=== PATIENT | male | born 1975 | race Caucasian/White ===

== ENCOUNTER 2023-05-13 13:04 | Outpatient (OUT) | payer OTHER, SELFPAY ==
--- NOTE | 2023-05-13 13:18 | PM.CN ---
Consult Note: HPI Data of Consult Patient: known to practice within the last 3 years Requesting Physician: Anaid Phelps NP Primary Care Provider: GOLDEN RICHARDSON Consult Narrative Narrative: Lonnie Kenny a pleasant 47 year old male presents for evaluation of chronic neck pain post surgery. Today rating pain 8/10 cc:: CC: Anaid Phelps NP Review of Systems ROS Status of ROS 10 or more systems reviewed and unremarkable except as noted in history and below Musculoskeletal Reports: neck pain Exam Constitutional Documenting provider has reviewed patient's vital signs: yes Common normals: no apparent distress, oriented x3, healthy appearing, alert and well nourished General appearance: cooperative HENMT Common normals: normocephalic, hearing grossly normal bilaterally and moist oral mucous membranes Head and scalp: normocephalic Eye Common normals: PERRL Pupil: PERRL Neck & C-Spine Common normals: full ROM Cervical spine: cervical ROM abnormal, pain with cervical ROM and paracervical muscle tenderness Chest Common normals: inspection of chest normal Respiratory Common normals: normal respiratory effort, no retractions and no use of accessory muscles Extremity Common normals: normal to inspection and full ROM Neuro Common normals: oriented x3, CN's II-XII intact bilaterally, moves all extremities, no focal motor deficits, no sensory deficits noted and deep tendon reflexes 2+ bilaterally Sensorium/orientation: alert Motor exam: strength 5/5 throughout and no movement abnormalities noted Psych Common normals: mental status grossly normal, thought process normal, cooperative, affect normal, speech normal and activity/motor behavior normal Speech: normal speech Thought process: normal thought process Results Additional Findings Additional findings: I have checked an [place] report on this patient today and there are no aberrancies noted in the prescribing history.?? A drug screen was completed and reviewed within the last year, and if there has not been a drug screen completed we ordered one today to monitor higher risk, state monitored pain medication use. As part of providing excellent, safe, comprehensive care, the following was completed at our patient's visit: 1. A medication reconciliation and review to ensure accurate knowledge of current/active medications, including asking our patients to inform us about any [id number] medications or herbal remedies/nutritional supplements/alternative remedies. 2. A review to specifically ensure our patients have had annual screening for: elevated body mass index (BMI), tobacco use, screening for depression, and screening for unhealthy alcohol use. When screening is concerning, patients are provided with education and the specific recommendation to discuss the concerning health issue and treatment options with their primary care provider. Assessment and Plan Assessment and Plan (1) Displacement of intervertebral disc at C4-C5 level: (2) Displacement of intervertebral disc at C5-C6 level: (3) Chronic prescription opiate use: Assessment and Plan: I feel these medications are improving the patient's quality of life and allow them to tolerate activities of daily living as well as participate in recreational activity.? The patient does not report intolerable side effects. The patient is NOT opioid naive and non-pharmacologic and non-opioid treatment has failed to significantly relieve the patient's pain and improve functionality. The patient has a diagnosis that is related to a somatic or visceral pain etiology. ? ?? I reviewed with the patient the potential risks and side effects with the use of? opioid medications including but not limited to respiratory depression,? sedation, and even . I verified the patient has access to naloxone should? these effects occur. I advised the patient to avoid the use of any other? sedation substances including alcohol, THC, and benzodiazepines while? taking opioid medications due to the risk of compounding side effects and? detrimental outcomes. I reviewed the PEDIATRIC CARDIOLOGIST, pain treatment agreement, urine? drug screen, and opioid start talking forms. The patient was advised to let? their family know they had Naloxone in case they would need to administer? the medication.? ?? Plan increase lyrica to 200mg BID continue other medications, tolerating well without side effects continue topical cream, TENS, and massage chair f/u 1 month to discuss medication changes
== END 2023-05-13 13:05 | disposition home or self-care (01) ==
LOC: PM 13:04
PROVIDERS: PCP Family Medicine; Visit Provider Nurse Practitioner
DX: M50.221 Other cervical disc displacement at C4-C5 level (principal); M50.222 Other cervical disc displacement at C5-C6 level; Z79.891 Long term (current) use of opiate analgesic
CPT/HCPCS: G0463

== ENCOUNTER 2023-06-11 13:25 | Outpatient (OUT) | payer OTHER, SELFPAY ==
--- NOTE | 2023-06-11 13:35 | PM.CN ---
Consult Note: HPI Data of Consult Patient: known to practice within the last 3 years Requesting Physician: Anaid Phelps NP Primary Care Provider: GOLDEN RICHARDSON Consult Narrative Narrative: Lonnie Kenny a pleasant 47 year old male presents for evaluation of chronic neck pain post cervical fusion. Today rating pain 8/10. Patient has been taking lyrica 200mg BID but it causes too much drowsiness. Patient would like to discuss medication management and additional procedures, has not benefitted from cervical ESIs despite radicular symptoms. cc:: CC: Anaid Phelps NP Review of Systems ROS Status of ROS 10 or more systems reviewed and unremarkable except as noted in history and below Musculoskeletal Reports: neck pain Meds Home Medications and Allergies Home Medications Medication Instructions Recorded Confirmed Type atorvastatin 10 mg tablet 10 mg PO DAILY 05/13/23 05/13/23 History baclofen 10 mg tablet 10 mg PO TID 05/13/23 05/13/23 History cetirizine 10 mg tablet 10 mg PO DAILY PRN allergy symptoms 05/13/23 05/13/23 History cholecalciferol (vitamin D3) 25 25 mcg PO DAILY 05/13/23 05/13/23 History mcg (1,000 unit) capsule (Vitamin D3) diclofenac sodium 75 mg 75 mg PO BID 05/13/23 05/13/23 History tablet,delayed release docusate sodium 100 mg capsule 100 mg PO DAILY 05/13/23 05/13/23 History hydroxyzine HCl 10 mg tablet 10 mg PO DAILY 05/13/23 05/13/23 History lisinopril 20 1 tab PO DAILY 05/13/23 05/13/23 History mg-hydrochlorothiazide 12.5 mg tablet omeprazole 20 mg capsule,delayed 20 mg PO DAILY 05/13/23 05/13/23 History release oxycodone-acetaminophen 5 mg-325 1 tab PO QID 05/13/23 05/13/23 History mg tablet (Percocet) pregabalin 200 mg capsule (Lyrica) 200 mg PO BID 05/13/23 05/13/23 History tamsulosin 0.4 mg capsule (Flomax) 0.4 mg PO DAILY 05/13/23 05/13/23 History venlafaxine 150 mg 150 mg PO DAILY 05/13/23 05/13/23 History capsule,extended release 24 hr (Effexor XR) oxycodone-acetaminophen 5 mg-325 1 tab PO QID PRN pain #120 tabs 05/26/23 Rx mg tablet (Percocet) oxycodone-acetaminophen 5 mg-325 1 tab PO QID PRN pain #120 tabs 05/27/23 Rx mg tablet (Percocet) Allergies Allergy/AdvReac Type Severity Reaction Status Date / Time corn Allergy Vomiting Verified 05/13/23 15:44 Penicillins Allergy Hives Verified 05/13/23 15:44 ibuprofen AdvReac Nausea Verified 05/13/23 15:44 prednisone AdvReac Palpitation Verified 05/13/23 15:44 s Exam Constitutional Documenting provider has reviewed patient's vital signs: yes Common normals: no apparent distress, oriented x3, healthy appearing, alert and well nourished General appearance: cooperative HENMT Common normals: normocephalic, hearing grossly normal bilaterally and moist oral mucous membranes Head and scalp: normocephalic Eye Common normals: PERRL Pupil: PERRL Neck & C-Spine Cervical spine: cervical ROM abnormal, pain with cervical ROM and paracervical muscle tenderness Other: bilateral radiculopathy Chest Common normals: inspection of chest normal Respiratory Common normals: normal respiratory effort, no retractions and no use of accessory muscles Extremity Common normals: normal to inspection and full ROM Neuro Common normals: oriented x3, CN's II-XII intact bilaterally, moves all extremities, no focal motor deficits, no sensory deficits noted and deep tendon reflexes 2+ bilaterally Sensorium/orientation: alert Motor exam: strength 5/5 throughout and no movement abnormalities noted Psych Common normals: mental status grossly normal, thought process normal, cooperative, affect normal, speech normal and activity/motor behavior normal Speech: normal speech Thought process: normal thought process Assessment and Plan Assessment and Plan (1) Displacement of intervertebral disc at C4-C5 level: (2) Displacement of intervertebral disc at C5-C6 level: (3) Chronic prescription opiate use: Assessment and Plan: I feel these medications are improving the patient's quality of life and allow them to tolerate activities of daily living as well as participate in recreational activity.? The patient does not report intolerable side effects. The patient is NOT opioid naive and non-pharmacologic and non-opioid treatment has failed to significantly relieve the patient's pain and improve functionality. The patient has a diagnosis that is related to a somatic or visceral pain etiology. ? ?? I reviewed with the patient the potential risks and side effects with the use of? opioid medications including but not limited to respiratory depression,? sedation, and even . I verified the patient has access to naloxone should? these effects occur. I advised the patient to avoid the use of any other? sedation substances including alcohol, THC, and benzodiazepines while? taking opioid medications due to the risk of compounding side effects and? detrimental outcomes. I reviewed the REGULATORY COMPLIANCE DIRECTOR, pain treatment agreement, urine? drug screen, and opioid start talking forms. The patient was advised to let? their family know they had Naloxone in case they would need to administer? the medication.? ?? Plan increase lyrica to 100mg AM, 200-300mg HS continue other medications, tolerating well without side effects continue topical cream, TENS, and massage chair f/u 3 months
== END 2023-06-11 13:26 | disposition home or self-care (01) ==
LOC: PM 13:25
PROVIDERS: PCP Family Medicine; Visit Provider Nurse Practitioner
DX: M50.221 Other cervical disc displacement at C4-C5 level (principal); M50.222 Other cervical disc displacement at C5-C6 level; Z79.899 Other long term (current) drug therapy
CPT/HCPCS: G0463

== ENCOUNTER 2023-09-10 13:22 | Outpatient (OUT) | payer OTHER, SELFPAY ==
--- OUTSIDE RECORDS SUMMARY | 2023-09-10 13:42 | XMS_ITS | CCD ---
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 Name Role Phone GOLDEN RAMIRES Primary Care Unavailable GOLDEN RAMIRES Referring Unavailable ALMA LEVINE Attending Unavailable ALMA LEVINE Admitting Unavailable MISC, DR KELLEY Admitting Unavailable ZieberEmigdio Consulting Unavailable FURLONG, DR GOLDEN Bryan Primary Care Unavailable MISC, DR KELLEY Attending Unavailable SCHAILIN, DR JEFFERS Consulting Unavailable PECK ., DR SHAN Ramachandran Attending Unavailable PECK ., DR SHAN Ramachandran Admitting Unavailable FREEMAN ., ISAIAH Consulting Unavailable DINA, DR MARISEL Heredia Primary Care Unavailable PECK ., DR SHAN Ramachandran Attending Unavailable FREEMAN ., ISAIAH Consulting Unavailable DINA, DR MARISEL Heredia Primary Care Unavailable PECK ., DR SHAN Ramachandran Admitting Unavailable FREEMAN ., ISAIAH Consulting Unavailable DINA, DR MARISEL Heredia Primary Care Unavailable PECK ., DR SHAN Ramachandran Attending Unavailable PECK ., DR SHAN Ramachandran Admitting Unavailable LAKSHMIPATHY ., NARHAILEY Attending Sherie vailable LAKSHMIPATHY ., NARHAILEY Admitting Sherie vailable FREEMAN ., ISAIAH Consulting Unavailable FURARNG, DR GOLDEN Bryan Primary Care Unavailable LAKSHMIPATHY ., JAIME Consulting Sherie vailable PECK ., DR SHAN Ramachandran Attending Unavailable FREEMAN ., ISAIAH Consulting Unavailable DINA, DR MARISEL Heredia Primary Care Unavailable PECK ., DR SHAN Ramachandran Admitting Unavailable LAKSHMIPATHY ., NARENDTYLER Attending Sherie vailable LAKSHMIPATHY ., JAIME Admitting Sherie vailable FURZARINA, DR GOLDEN Bryan Primary Care Unavailable LAKSHMIPATHY ., NARHAILEY Consulting Sherie vailable LAKSHMIPATHY ., NARHAILEY Attending Sherie vailable XIOMARASHMIPATHY ., KYLEATH Admitting Sherie vailable DERBA, DR GOLDEN Bryan Primary Care Unavailable LAKSHMIPATHY ., NARENDRANATH Attending Sherie vailable XIOMARASHMIPATHY ., NARENDRANATH Admitting Sherie vailable Emigdio Naylor Consulting Unavailable DEBRA, DR GOLDEN Bryan Primary Care Unavailable DEENA ., JAIME Consulting Sherie vailable MARIAM, DR JEFFERS Attending Unavailable DR AURY BECERRA Admitting Unavailable Emigdio Naylor Consulting Unavailable DR GOLDEN RAMIRES Primary Care Unavailable MARIAM, DR JEFFERS Consulting Unavailable Allergies Allergy Classification Reported Allergen(s) Allergy Type Date of Onset Reaction(s) Facility (1 source) corn extract; Translations: [CORN] Drug Allergy 09-20-2015 [facility] Repository (2 sources) Ibuprofen; Translations: [IBUPROFEN] Drug Allergy 08-19-2016 [facility] Repository (2 sources) Penicillins Drug allergy (disorder) 03-21-2015 [facility] Repository (2 sources) predniSONE; Translations: [PREDNISONE] Drug Allergy 09-20-2015 [facility] Repository (1 source) [place] Containing Products Drug allergy (disorder) [facility] Repository Problems Problem Classification Problem Date Documented Da te Episodic/Chronic Joint disorders and dislocations; trauma-related (4 sources) Other tear of medial meniscus, current injury, right knee, initial encounter; Translations: [OTH TEAR MED MENSC CUR RT KNEE INIT] Onset: 10-27-2022 Episodic Other screening for suspected conditions (not mental disorders or infectious disease) (4 sources) Encounter for screening, unspecified; Translations: [ENCOUNTER FOR SCREENING UNSPECIFIED] Onset: 12-16-2022 Episodic Spondylosis; intervertebral disc disorders; other back problems (10 sources) Other cervical disc displacement at C4-C5 level; Translations: [Other cervical disc displacement at C5-C6 level] Onset: 06-26-2022 Chronic Results Test Name Value Interpretation Reference Range Facility XR CSPINE MIN 4 VIEWSon 11-29 XR CSPINE MIN 4 VIEWS EXAMINATION: XR CSPINE MIN 4 VIEWS HISTORY: Prolapsed cervical intervertebral disc ; chronic bilateral neck pain COMPARISON: XR C-spine 10/27/2022 FINDINGS: BONES: Mechanical fusion of C4-C5-6 via anterior plate and screws and posterior acoustical screws and rods; no appreciable hardware fracture or loosening. No vertebral body fracture. 4 mm anterolisthesis of C6 on 7. DISC SPACES: Osseous fusion C4-C5, C5-C6. Mild narrowing C6-C7 and C7-T1. PARASPINOUS: Negative. No paraspinous abnormality is seen. OTHER: Negative. IMPRESSION: 1. Stable surgical changes without evidence of hardware failure or change in alignment. 2. Stable grade 1 anterolisthesis of C6 on C7. 3. Stable multilevel mild degenerative disc disease. Electronically authenticated by: EMIGDIO NAYLOR Date: 2022-12-16 15:11 Normal [facility] XR CSPINE OBL FLEX_EXTon XR CSPINE OBL FLEX_EXT EXAMINATION: XR CSPINE OBL FLEX_EXT HISTORY: Displacement of cervical intervertebral disc ; chronic neck pain COMPARISON: XR C-spine 02/06/2021 FINDINGS: BONES: Anterior posterior mechanical fusion C4-5-6 vertebral bodies; no appreciable hardware fracture or loosening. No bone fracture dislocation. Suspect posterior decompression of C4 and C5. Mild grade 1 anterior listhesis of C6 on C7 which remain stable between neutral, flexion, extension. DISC SPACES: Mild narrowing C3-4, C6-7. Osseous fusion of C4-5 and C5-6. PARASPINOUS: No paraspinous abnormality is seen. OTHER: Negative. IMPRESSION: 1. No acute bone abnormality. 2. Stable surgical changes without evidence of hardware failure or change in alignment. 3. Stable mild degenerative changes C3-4 and C6-7. Electronically authenticated by: EMIGDIO NAYLOR Date: 2022-10-27 15:03 Normal [facility] COMPREHENSIVE METABOLIC PANE Kulwinder 12-25-2021 Albumin [Mass/Vol] 4.9 g/dL Normal 3.6-5.1 [facility] Comment on above: Performed By: #### 1 6028, 0248, 90098, 3560 #### [facility] [address], [address] [place] [phone] Cost Accounting Analyst: Nicolas Araujo MD Albumin/Globulin [Mass ratio] 2.1 {ratio} Normal 1.0-2.5 [facility] Comment on above: Performed By: #### 1 7306, 7600, 81009, 5363 #### [facility] of [place] [address] Cost Accounting Analyst: Nicolas Araujo MD ALP [Catalytic activity/Vol] 49 U/L Normal 36-130 [facility] Comment on above: Performed By: #### 1 7306, 7600, 48059, 5363 #### [facility] [place] [address] Cost Accounting Analyst: Nicolas Araujo MD ALT [Catalytic activity/Vol] 14 U/L Normal 9-46 [facility] Comment on above: Performed By: #### 1 7306, 7600, 75713, 5363 #### [facility] [place] [address] Cost Accounting Analyst: Nicolas Araujo MD AST [Catalytic activity/Vol] 14 U/L Normal 10-40 [facility] Comment on above: Performed By: #### 1 7306, 7600, 82298, 5363 #### [facility] [place] [address] Cost Accounting Analyst: Nicolas Araujo MD Bilirubin [Mass/Vol] 0.7 mg/dL Normal 0.2-1.2 [facility] Comment on above: Performed By: #### 1 7306, 7600, 35456, 5363 #### [facility] [place] [address] Cost Accounting Analyst: Nicolas Araujo MD BUN/CREATININE RATIO NOT APPLICABLE Normal 6-22 [facility] Comment on above: Performed By: #### 1 7306, 7600, 71189, 5363 #### [facility] [place] [address] Cost Accounting Analyst: Nicolas Araujo MD Calcium [Mass/Vol] 9.9 mg/dL Normal 8.6-10.3 [facility] Comment on above: Performed By: #### 1 7306, 7600, 20116, 5363 #### [facility] of [address], [address] [place] [address] Cost Accounting Analyst: Nicolas Araujo MD Chloride [Moles/Vol] 101 mmol/L Normal 98-110 [facility] Comment on above: Performed By: #### 1 7306, 7600, 00965, 5363 #### [facility] [place] [address] Cost Accounting Analyst: Nicolas Araujo MD CO2 [Moles/Vol] 27 mmol/L Normal 20-32 [facility] Comment on above: Performed By: #### 1 7306, 7600, 44117, 5363 #### [facility] [place] [address] Cost Accounting Analyst: Nicolas Araujo MD Creatinine [Mass/Vol] 1.16 mg/dL Normal 0.60-1.35 [facility] Comment on above: Performed By: #### 1 7306, 7600, 13693, 5363 #### [facility] [place] [address] Cost Accounting Analyst: Nicolas Araujo MD eGFR NON-AFR. SPANISH 76 mL/min/1.73m2 Normal > OR = 60 [facility] Comment on above: Performed By: #### 1 7306, 7600, 30586, 5363 #### [facility] [place] [address] Cost Accounting Analyst: Nicolas Araujo MD GFR/1.73 sq M.predicted among blacks MDRD (S/P/Bld) [Vol rate/Area] 88 mL/min/{1.73_m2} Normal > OR = 60 [facility] Comment on above: Performed By: #### 1 7306, 7600, 67739, 5363 #### [facility] [place] [address] Cost Accounting Analyst: Nicolas Araujo MD Globulin (S) [Mass/Vol] 2.3 g/dL Normal 1.9-3.7 [facility] Comment on above: Performed By: #### 1 7306, 7600, 22408, 5363 #### [facility] [place] [address] Cost Accounting Analyst: Nicolas Araujo MD Glucose [Mass/Vol] 93 mg/dL Normal 65-99 [facility] Comment on above: Result Comment: Fasting reference interval Performed By: #### 1 7306, 7600, 56554, 5363 #### [facility] [place] [address] Cost Accounting Analyst: Nicolas Araujo MD Potassium [Moles/Vol] 4.3 mmol/L Normal 3.5-5.3 [facility] Comment on above: Performed By: #### 1 7306, 7600, 11691, 5363 #### [facility] [place] [address] Cost Accounting Analyst: Nicolas Araujo MD Protein [Mass/Vol] 7.2 g/dL Normal 6.1-8.1 [facility] Comment on above: Performed By: #### 1 7306, 7600, 92122, 5363 #### [facility] [place] [address] Cost Accounting Analyst: Nicolas Araujo MD Sodium [Moles/Vol] 137 mmol/L Normal 135-146 [facility] Comment on above: Performed By: #### 1 7306, 7600, 67352, 5363 #### [facility] [place] [address] Cost Accounting Analyst: Nicolas Araujo MD Urea nitrogen [Mass/Vol] 17 mg/dL Normal 7-25 [facility] Comment on above: Performed By: #### 1 7306, 7600, 76228, 5363 #### [facility] [place] [address] Cost Accounting Analyst: Nicolas Araujo MD LIPID PANEL, [facility] 11-30 Cholesterol [Mass/Vol] 200 mg/dL High <200 [facility] Comment on above: Order Comment: FASTI NG:YES FASTING: YES Performed By: #### 1 7306, 7600, 67645, 5363 #### [facility] [address], [address] [place] [address] Cost Accounting Analyst: Nicolas Araujo MD Cholesterol in HDL [Mass/Vol] 38 mg/dL Low > OR = 40 [facility] Comment on above: Order Comment: FASTI NG:YES FASTING: YES Performed By: #### 1 7306, 7600, 55194, 5363 #### [facility] [address], [address] [place] [address] Cost Accounting Analyst: Nicolas Araujo MD Cholesterol in LDL [Mass/Vol] 110 mg/dL High [facility] Comment on above: Order Comment: FASTI NG:YES FASTING: YES Result Comment: Refe rence range: <100 Desirable range <100 mg/dL for primary prevention; <70 mg/dL for patients with CHD or diabetic patients with > or = 2 CHD risk factors. LDL-C is now calculated using the Freddie calculation, which is a validated novel method providing better accuracy than the Friedewald equation in the estimation of LDL-C. Jamison PEMBERTON et al. AGUSTO. 2013;310(19): 9471-5620 (http://education.WeVorce/faq/PKS819) Performed By: #### 1 7306, 7600, 86038, 5363 #### [facility] [address], [address] [place] [address] Cost Accounting Analyst: Nicolas Araujo MD Cholesterol.total/C holesterol in HDL [Mass ratio] 5.3 {ratio} High <5.0 [facility] Comment on above: Order Comment: FASTI NG:YES FASTING: YES Performed By: #### 1 7306, 7600, 17833, 5363 #### [facility] [place] [address] Cost Accounting Analyst: Nicolas Araujo MD NON HDL CHOLESTEROL 162 mg/dL (calc) High <130 [facility] Comment on above: Order Comment: FASTI NG:YES FASTING: YES Result Comment: For patients with diabetes plus 1 major ASCVD risk factor, treating to a non-HDL-C goal of <100 mg/dL (LDL-C of <70 mg/dL) is considered a therapeutic option. Performed By: #### 1 7306, 7600, 29229, 5363 #### [facility] [address], [address] [place] [address] Cost Accounting Analyst: Nicolas Araujo MD Triglyceride [Mass/Vol] 364 mg/dL High <150 [facility] Comment on above: Order Comment: FASTI NG:YES FASTING: YES Result Comment: If a non-fasting specimen was collected, consider repeat triglyceride testing on a fasting specimen if clinically indicated. Eugenie et al. J. of Clin. Lipidol. 2015;9:129-169. Performed By: #### 1 7306, 7600, 34859, 5363 #### [facility] [address], [address] [place] [address] Cost Accounting Analyst: Nicolas Araujo MD PSA, TOTALon 12-25-2021 PSA, TOTAL 0.44 ng/mL Normal < OR = 4.00 [facility] Comment on above: Result Comment: The total PSA value from this assay system is standardized against the WHO standard. The test result will be approximately 20% lower when compared to the equimolar-standardized total PSA (Minerva Jose). Comparison of serial PSA results should be interpreted with this fact in mind. This test was performed using the Siemens chemiluminescent method. Values obtained from different assay methods cannot be used interchangeably. PSA levels, regardless of value, should not be interpreted as absolute evidence of the presence or absence of disease. Performed By: #### 1 7306, 7600, 98167, 5363 #### [facility] [address], [address] [place] [address] Cost Accounting Analyst: Nicolas Araujo MD VITAMIN D,25-OH,TOTAL,IAon 0 12-25-2021 VITAMIN D,25-OH,TOTAL,IA 61 ng/mL Normal 30-100 [facility] Comment on above: Result Comment: Rima min D Status 25-OH Vitamin D: Deficiency: <20 ng/mL Insufficiency: 20 - 29 ng/mL Optimal: > or = 30 ng/mL For 25-OH Vitamin D testing on patients on D2-supplementation and patients for whom quantitation of D2 and D3 fractions is required, the QuestAssureD(TM) 25-OH VIT D, (D2,D3), LC/MS/MS is recommended: order code 55543 (patients >2yrs). See Note 1 Note 1 For additional information, please refer to http://education.WeVorce/faq/LAT460 (This link is being provided for informational/ educational purposes only.) Performed By: #### 1 7306, 7600, 33185, 5363 #### [facility] [address], [address] [place] [address] Cost Accounting Analyst: Nicolas Araujo MD CT CERVICAL SPINE WITHOUT CO NTRASTon 10-30-2021 CT CERVICAL SPINE WITHOUT CONTRAST [facility] Department of Radiology [address] [place] [address] ======== Patient Name: AVEL FUNES : 1975 Sex: M Age: Race: White Pt. Location: Patient Status: D Ordered Date: 09/18/2021 3:30:00 PM Completed Date: 10/30/2021 03:13 PM Requesting Provider: ALMA LEVINE Attending Provider: ALMA LEVINE Report Copy To: GOLDEN RAMIRES Signs & Symptoms: M54.12 Radiculopathy, cervical region I10 History: [place] [phone] [facility] approval 09/19-10/03/21 Comments: Exam: CT CERVICAL SPINE WITHOUT CONTRAST ======== Clinical history:Arm pain, radiculopathy. Prior cervical fusion. CT cervical spine: Procedure: Axial images were obtained through the cervical spine. Coronal and sagittal reconstructions were performed. All CT scans at this facility use dose modulation, iterative reconstruction, and/or weight based dosing when appropriate to reduce radiation dose to as low as reasonably achievable. COMPARISON: 07/03/2020 The Findings: Stable intact fusion hardware C4-6. No acute fracture or dislocation. No osseous destruction. Degenerative changes at C3-4 with disc space narrowed, anterior spurring is progressed slightly. No bony encroachment of the central canal. No paravertebral fluid collections. Impression: Stable lower cervical fusion. Slight progression of moderate degenerative changes at C3-4. Electronically signed: Emigdio Waters. Transcribed by: [email or web address], User Resident: Electronically Signed by: EMIGDIO WATERS @ 11/02/2021 08:47 AM Normal [facility] CERVICAL SPINE 4 OR 5 VIEWSo n 09-11-2021 CERVICAL SPINE 4 OR 5 VIEWS [facility] Department of Radiology [address] [place] [id number] ======== Patient Name: AVEL FUNES : 1975 Sex: M Age: Race: White Pt. Location: Patient Status: D Ordered Date: 09/11/2021 1:15:00 PM Completed Date: 09/11/2021 01:11 PM Requesting Provider: ALMA LEVINE Attending Provider: Report Copy To: Signs & Symptoms: M54.2 Cervicalgia I10 History: Comments: evaluate Exam: CERVICAL SPINE 4 OR 5 VIEWS ======== CERVICAL SPINE 4 OR 5 VIEWS HISTORY: Prior surgery, neck pain. COMPARISON: 02/06/2021. IMPRESSION: Cervical spine visualized to the superior endplate of T1. Straightening of the normal cervical lordosis. 1. Unchanged postsurgical changes status post C4-C6 anterior and posterior spinal fusion. No hardware complication. There is mild anterolisthesis C6-C7 without significant change on flexion or extension. 2. Unchanged degenerative changes. 3. Dens limited secondary to overlying structures, however the C1 lateral masses are well-aligned with C2. Electronically signed: Avtar Barnes. Transcribed by: [email or web address], User Resident: Electronically Signed by: AVTAR BARNES @ 09/12/2021 02:45 PM Normal [facility] Comment on above: Order Comment: evalu ate CERVICAL SPINE 2 OR 3 [facility] 02-06-2021 CERVICAL SPINE 2 OR 3 [facility] Department of Radiology [address] [place] [id number] ======== Patient Name: AVEL FUNES : 1975 Sex: M Age: Race: White Pt. Location: Patient Status: D Ordered Date: 02/06/2021 2:00:00 PM Completed Date: 02/06/2021 02:21 PM Requesting Provider: ALMA LEVINE Attending Provider: ALMA LEVINE Report Copy To: GOLDEN RAMIRES Signs & Symptoms: M50.30 Other cervical disc degeneration, unsp cervical region I10 History: [place] Comments: ap, lat Exam: CERVICAL SPINE 2 OR 3 [facility] ======== EXAMINATION: CERVICAL SPINE 2 OR 3 VWS 02/06/2021 2:21 PM CLINICAL HISTORY: M50.30 Other cervical disc degeneration, unsp cervical region I10 TECHNOLOGIST COMMENTS: post op neck surgery check up times 6 months QUESTION FOR THE RADIOLOGIST: ap, lat TECHNIQUE: AP, Odontoid and Lateral views were obtained. COMPARISON: Comparison is made with prior cervical spine radiographs of 09/19/2020. FINDINGS: There is evidence of surgical spinal fusion from C4 to C6 with fixation plate and screws anteriorly and intervertebral vertebral graft material. There is also fixation of the posterior elements with the particular screws and plates at these levels. Postsurgical changes seen. No hardware complications are identified. There is a disc degenerative disease at the level of C3-C4 and C6-C7. Odontoid process is intact. There is no evidence of bony cervical rib. No significant prevertebral soft tissue abnormality is identified. IMPRESSION: 1. Status post surgical spinal fusion from C4 to C6 with postsurgical change. No hardware complications are seen. 2. Disc degenerative disease at C3-C4 and C6-C7. 3. No evidence of fracture, spondylolisthesis or acute bony pathology. Electronically signed: Koby Franks. Transcribed by: [email or web address], User Resident: Electronically Signed by: KOBY FRANKS @ 02/07/2021 09:02 AM Normal [facility] Comment on above: Order Comment: ap, l at CBC and Differentialon 04-06 Abs Baso 0.04 k/uL Normal <0.11 [facility] Abs Will 0.72 k/uL Normal <0.87 [facility] Abs Neut 4.71 k/uL Normal 1.45-7.50 [facility] Absolute nRBC <0.01 Normal <0.01 [facility] Basophils/100 WBC (Bld) 0.5 % Normal [facility] DTYPE Auto Diff Normal [facility] Eosinophils (Bld) [#/Vol] 0.11 10*3/uL Normal <0.46 [facility] Eosinophils/100 WBC (Bld) 1.3 % Normal [facility] Erythrocyte distribution width (RBC) [Ratio] 12.0 % Normal 11.5-15.0 [facility] Hematocrit (Bld) [Volume fraction] 43.4 % Normal 39.0-51.0 [facility] Hemoglobin (Bld) [Mass/Vol] 14.2 g/dL Normal 13.0-17.0 [facility] Lymphocytes (Bld) [#/Vol] 2.63 10*3/uL Normal 1.00-4.00 [facility] Lymphocytes/100 WBC (Bld) 32.0 % Normal [facility] MCH (RBC) [Entitic mass] 28.8 pG Normal 26.0-34.0 [facility] MCHC (RBC) [Mass/Vol] 32.7 g/dL Normal 30.5-36.0 [facility] MCV (RBC) [Entitic vol] 88.0 fL Normal 80.0-100.0 [facility] Monocytes/100 WBC (Bld) 8.8 % Normal [facility] Neutrophils/100 WBC (Bld) 57.4 % Normal [facility] NRBCs 0.0 /100 [facility] mean volume (Bld) [Entitic vol] 11.0 fL Normal 9.0-12.7 [facility] Platelets (Bld) [#/Vol] 280 10*3/uL Normal 150-400 [facility] RBC (Bld) [#/Vol] 4.93 10*6/uL Normal 4.20-6.00 [facility] WBC (Bld) [#/Vol] 8.21 10*3/uL Normal 3.70-11.[address] [facility] [address] ABD/PEL W IVCONon 019 CT ABD/PEL W IVCON * * *Final Report* * * DATE OF EXAM: Apr 06 2019 7:38PM [facility] 0530 - CT ABD/PEL W IVCON / PROCEDURE REASON: Abd pain, diverticulitis suspected * * * * Physician Interpretation * * * * EXAMINATION: CT ABDOMEN AND PELVIS WITH IV CONTRAST CLINICAL HISTORY: Abd pain, diverticulitis suspected abd pain TECHNIQUE: CT of the abdomen and pelvis was performed using standard technique, scanning from just above the dome of the diaphragm to the symphysis pubis. MQ: CTAP_3 Contrast: IV: 150 ml of Omnipaque 300 Oral: 900 ml of 50ML Omnipaque [address] Radiation dose: Integrated Dose-length product (DLP) for this visit = 977 mGy*cm. CT Dose Reduction Employed: Automated exposure control (AEC) COMPARISON: None. RESULT: Liver: No mass. Biliary: No bile duct dilation. Gallbladder is unremarkable. Spleen: No mass. No splenomegaly. Pancreas: No mass or duct dilation. Adrenals: No mass. Kidneys: No mass, calculus or hydronephrosis. GI tract: No dilatation or wall thickening Lymph nodes: No abdominal or pelvic lymphadenopathy. Mesentery/Peritoneum: No ascites or mass. Retroperitoneum: No mass. Vasculature: The celiac axis and SMA are patent. The portal vein and branches, splenic vein, SMV, and hepatic veins are patent. No abdominal aortic or iliac artery aneurysm. Pelvis: No mass, ascites or fluid collection. Bones/Soft Tissues: No significant finding. Lower thorax: Unremarkable. IMPRESSION: No evidence of an acute intra-abdominal or pelvic process. Film Tests Checker: [facility] Transcribe Date/Time: Apr 06 2019 7:43P Dictated by : ANALY YEPEZ MD This examination was interpreted and the report reviewed and electronically signed by: ANALY YEPEZ MD on Apr 06 2019 7:59PM EST [id number] Normal [facility] Comp Metabolic Panelon 04-06 Albumin [Mass/Vol] 4.8 g/dL Normal 3.9-4.9 [facility] ALP [Catalytic activity/Vol] 57 U/L Normal 38-113 [facility] ALT [Catalytic activity/Vol] Unable to assay. Specimen hemolyzed. Normal 10-54 [facility] Anion gap [Moles/Vol] 12 mmol/L Normal 9-18 [facility] AST [Catalytic activity/Vol] Unable to assay. Specimen hemolyzed. Normal 14-40 [facility] Bilirubin [Mass/Vol] 0.4 mg/dL Normal 0.2-1.3 [facility] Calcium [Mass/Vol] 9.8 mg/dL Normal 8.5-10.2 [facility] Chloride [Moles/Vol] 97 mmol/L Normal 97-105 [facility] CO2 [Moles/Vol] 28 mmol/L Normal 22-30 [facility] Creatinine [Mass/Vol] 1.03 mg/dL Normal 0.73-1.22 [facility] eGFR- Amer. >60 Normal [facility]ital GFR/1.73 sq M predicted among non-blacks MDRD (S/P/Bld) [Vol rate/Area] mL/min/{1.73_m2} Normal [facility] Comment on above: Result Comment: eGFR (Estimated GFR) Units of measure: mL/min/1.73 meters squared eGFR is derived from the reexpressed MDRD Study equation using the following parameters: serum creatinine, age, gender and race. The creatinine assay has been calibrated to be traceable to IDMS. An eGFR <60 mL/min/1.73m2 for >3 months is consistent with chronic kidney disease. Refer to KDOQI guidelines for clinical interpretation. In patients with unstable renal function, e.g. those with acute kidney injury, the eGFR may not accurately reflect actual GFR. Glucose [Mass/Vol] 95 mg/dL Normal 74-99 [facility] Comment on above: Result Comment: The [place] [employer] (ADA) provides guidance for cutoff values for fasting glucose and random glucose. The ADA defines fasting as no caloric intake for at least 8 hours. Fasting plasma glucose results between 100 to 125 mg/dL indicate increased risk for diabetes (prediabetes). Fasting plasma glucose results greater than or equal to 126 mg/dL meet the criteria for diagnosis of diabetes. In the absence of unequivocal hyperglycemia, results should be confirmed by repeat testing. In a patient with classic symptoms of hyperglycemia or hyperglycemic crisis, random plasma glucose results greater than or equal to 200 mg/dL meet the criteria for diagnosis of diabetes. Reference: Standards of Medical Care in Diabetes 2016, [place] Diabetes Association. Diabetes Care. 2016.39(Suppl 1). Potassium [Moles/Vol] 4.4 mmol/L Normal 3.7-5.1 [facility] Comment on above: Result Comment: Spec imen is slightly hemolyzed. Results are unaffected by this level of hemolysis. The performance characteristics of this test were determined by [facility]. It has not been cleared or approved by the FDA. [facility] is regulated under CLIA as qualified to perform high complexity testing. This test is used for clinical purposes. It should not be regarded as investigational or for research. Protein [Mass/Vol] 7.5 g/dL Normal 6.3-8.0 [facility] Sodium [Moles/Vol] 137 mmol/L Normal 136-144 [facility] Urea nitrogen [Mass/Vol] 9 mg/dL Normal 9-24 [facility] ED NOTEon 04-06-2019 ED NOTE HNO ID: [id number] Author: Patricia MagañaRn) KELVIN Astorga Service: ? Author Type: Registered Nurse Type: ED Notes Filed: 04/06/2019 9:03 PM Note Text: Discharge Note The patient was discharged home, the patients skin is warm and dry, and breathing is regular and unlabored. Discharge and follow up instructions given, Pt stable. The patient verbalized an understanding of discharge instructions provided, and verbalized an understanding of the medications prescribed. The patient was instructed to return to the ED if symptoms worsen. Pt has no further questions and/or concerns at this time. [facility] ED NOTE HNO ID: [id number] Author: Patricia MagañaRn) KELVIN Astorga Service: ? Author Type: Registered Nurse Type: ED Notes Filed: 04/06/2019 8:46 PM Note Text: The P.A is at bedside. [facility] ED NOTE HNO ID: [id number] Author: Belgica MagañaRn) KELVIN Dukes Service: Nursing Author Type: Registered Nurse Type: ED Notes Filed: 04/06/2019 6:23 PM Note Text: Pt presents to ER for evaluation of rectal bleeding x 3 days. Pt states that he was diagnosed with diverticulitis yesterday without a CT scan and was not started on any medications. [facility] ED PROV NOTEon 04-06-2019 ED PROV NOTE HNO ID: [id number] Author: Suyapa Vargas Service: ? Author Type: Physician Instructional Systems Design Consultant Type: ED Provider Notes Filed: 04/06/2019 9:08 PM Note Text: ED Provider Note Patient Name: Avel Guidryn SERVICE DATE: 04/06/19 History Patient presents with: Rectal Bleeding: x3 days Patient is a 43-year-old male presenting to the emergency Department with complaints of rectal bleeding that began 3 days ago. Patient reports 2 episodes of bright red blood on toilet paper when wiping and in the toilet bowl after bowel movement 3 days ago. He had another few episodes yesterday and 2 again today. He states yesterday began experiencing pain along his left lower quadrant. He was seen by his primary care physician yesterday who sent him home with stool culture. He states initially his stools were loose however today they have bulked up and were much more firm. He states he does take Percocet daily for chronic pain and does usually feel constipated. He had been straining prior to the bouts of rectal bleeding. He denies any fevers, chills, nausea, vomiting, change in appetite, chest pain, shortness of breath, urinary complaints, back pain, melena, hematemesis, any other complaints. He does not take any blood thinners. PAST MEDICAL HISTORY Diagnosis Date - Chronic diarrhea - Hypertension - Psychiatric disorder Axiety PAST SURGICAL HISTORY Procedure Laterality Date - ORTHOPEDICS SURGERY HX - TONSILLECTOMY HX - VASECTOMY HX No family history on file. Social History Tobacco Use - Smoking status: Never Smoker - Smokeless tobacco: Current User Types: Chew Substance and Sexual Activity - Alcohol use: Not on file - Drug use: Not Currently - Sexual activity: Not on file ALLERGIES Allergen Reactions - [place] Other: See Comments - Ibuprofen GI Upset - Penicillin Rash - Prednisone Swelling Review of Systems Constitutional: Negative. HENT: Negative. Respiratory: Negative. Cardiovascular: Negative. Gastrointestinal: Positive for abdominal pain and blood in stool. Genitourinary: Negative. Musculoskeletal: Negative. Skin: Negative. Neurological: Negative. Psychiatric/Behavioral : Negative. All other systems reviewed and are negative. Physical Exam BP 127/90 Pulse 89 Temp (Src) 98.4 (Oral) Resp 12 Ht 5' 8 (1.73m) Wt 188 lb (85.3kg) SpO2 100% BMI 28.59 kg/(m2). O2 Therapy: Room Air Physical Exam Constitutional: He is oriented to person, place, and time. He appears well-developed and well-nourished. No distress. HENT: Head: Normocephalic and atraumatic. Mouth/Throat: Oropharynx is clear and moist. Eyes: Conjunctivae are normal. Neck: Normal range of motion. Neck supple. Cardiovascular: Normal rate and regular rhythm. Pulmonary/Chest: Effort normal and breath sounds normal. No respiratory distress. Abdominal: Soft. There is left lower quadrant tenderness, no guarding rigidity or acute peritoneal signs Genitourinary: Genitourinary Comments: No CVA tenderness, on rectal exam, there is a small rectal fissure at the posterior appreciated no gross blood, hemoccult negative. Musculoskeletal: Normal range of motion. He exhibits no tenderness. Neurological: He is alert and oriented to person, place, and time. No cranial nerve deficit. Skin: Skin is warm. Capillary refill takes less than 2 seconds. No pallor. Psychiatric: He has a normal mood and affect. Diagnostic Testing ED Labs Ordered and Reviewed CBC + AUTO DIFF (AK,AV,EU,FV,HL,ALYSON,MM, SP) COMPREHENSIVE METABOLIC PANEL (AK,AV,EU,FV,HL,ALYSON,MM, SP) FECAL OCCULT BLOOD - ED(POC) Procedures ED Course / Clinical Impression Clinical Impressions as of Apr 06 2059 Left lower quadrant pain Anal fissure MDM / Disposition / Plan Patient is a 43-year-old male presenting to the ED with complaint of rectal bleeding and left lower quadrant abdominal pain. Symptoms began 3 days ago with 2 bouts of loose stool with bright red blood on toilet paper and into a bowl. Yesterday began expressing left lower quadrant abdominal pain. He arrives today with tenderness along the left lower quadrant, afebrile, nontoxic appearing. No guarding or acute peritoneal signs. CBC and CMP are normal. CT abdomen and pelvis shows no acute inter abdominal or pelvic process. He was given IV fluids Patient states his abdominal pain has improved since here in the ED. On rectal exam, there is notable rectal fissure. Given his left lower quadrant tenderness, concern for clinical presentation consistent with diverticulitis, will treat with Cipro and flagyl as he is allergic to penicillin and also has reactions to cephalosporins. He is aware that taking the Percocet chronically can cause constipation, straining and likely resulted in rectal fissure as seen on exam. He was also given prescription for witch soledad and Colace. He did provide a stool specimen to outside facility who his pcp is affiliated with and is awaiting stool culture results for this. Patient is to follow up with Dr. Ramires. Return if worse. Patient and at bedside are amenable to this and will be d/c'd to home in hemodynamically stable condition. The patient was DISCHARGED: Counseled patient regarding lab results AND radiology results AND need for follow-up. Discharged home with verbal and written instructions. They were instructed to return as needed for persistent or worsening symptoms or any new concerns. Condition at time of disposition: stable SIGNATURE: TRICIA Watters) Sam 04/06/19 2108 [facility] PROGRESSon 04-06-2019 PROGRESS HNO ID: [id number] Author: Eileen () Ladonna Service: Radiology Author Type: Risk Control Specialist Type: Progress Notes Filed: 04/06/2019 7:39 PM Note Text: Radiology Service Progress Note PATIENT NAME: Avel Funes DATE OF SERVICE: April 06, 2019 TIME: 7:39 PM PATIENT IDENTITY VERIFICATION COMPLETED USING TWO (2) METHODS: Patient confirmed name verbally, ID Band and Date of . PATIENT GENDER DATA: Male PATIENT RELEVANT IMPLANT DATA REVIEWED: Yes RADIOLOGY DEPARTMENT: CT; Exam(s) Completed: Abdomen/Pelvis PERIPHERAL IV DATA: Inpatient: see LDA documentation SIGNED BY: RT Laura April 06, 2019 7:39 PM [facility] Encounters Encounter Date Encounter Type Care Provider Facility Start: 01-13-2023 End: 01-14-2023 ambulatory NARENDRANATH LAKSHMIPATHY . Facility: Start: 12-16-2022 End: 12-17-2022 ambulatory NARENDRANATH LAKSHMIPATHY . Facility: Start: 12-04-2022 End: 12-05-2022 ambulatory NARENDRANATH LAKSHMIPATHY . Facility:[facility] Start: 10-27-2022 End: 10-28-[address] DOCTOR SOSA Facility:[facility] Start: 09-10-2022 End: 09-11-2022 ambulatory ISAIAH FREEMAN . Facility:[facility] Start: 09-04-[address] SHAN PECK . Faci lity:[facility] Start: 06-26-2022 End: 06-27-[address] SHAN PECK . Facility:[facility] Start: 04-03-2022 End: 04-04-[address] SHAN PECK . Facility:[facility] Start: 10-30-2021 End: 10-31-2021 ambulatory GOLDEN RAMIRES Facility:[facility] Payers Date Payer Category Payer Unknown [id number] 2.16.8 [id number] 1975 Unknown [id number] 2.16.84 [id number] 1976 Unknown [id number] 2.16.84 [id number] 1976 Unknown [id number] 2.16.84 [id number] 1976 Unknown [id number] 2.16.84 [id number] 1976 Unknown [id number] 2.16.84 [id number] 1976 Unknown [id number] 2.16.84 [id number] 1976 Unknown [id number] 2.16.84 [id number] 1976 Unknown [id number] 2.16.84 [id number] 1976 Unknown [id number] 2.16.84 [id number] 1976 Unknown [id number] 2.16.84 [id number] 1959 Worker's Compensation [id number] Consultation note 12-04-2022 Note Date & Type Note Facility 12-04-2022 Note CONSULTATION CONSULTATION DATE: 12/04/2022 TO: Dr. Carl Espinoza CHIEF COMPLAINT: Includes severe neck pain, shoulder pain. HISTORY: He reports the pain as being 5-7/10, deep in character with a sharp component, increased with activities such as lifting maneuvers, pushing and pulling maneuvers and cervical extension. Denies any change in bowel and bladder habits or new sensorimotor changes in the lower extremities. EXAM: His examination is notable for the patient having significant pain with cervical facet loading maneuvers at C4-5 and C5-6 with a fair amount of myofascial spasm of the cervical paravertebral muscles. He had moderate pain with cervical axial loading maneuvers. He had no clinical evidence of radiculopathy or myelopathy involving his upper extremities. IMPRESSION: Our impression is patient with chronic pain secondary to a work related injury. Diagnosis code: M50.221 - Disc prolapse at C4-5 and M50.222 - Disc prolapse at C5-6 with associated myofascial spasm secondary to the same, with associated facet loading pain clinically. RECOMMENDATIONS: At this point, I recommend patient undergo cervical spine films. I have placed a skin marker over the most painful area. It appears to be at approximately the C4-5 level. We will have a better idea after carl his painful area, place a skin marker and obtain cervical spine films, PA and lateral views, to determine which level his most painful area is. It appears to be at the C4-5 level. I have asked him to trial baclofen 10 mg pills, 1-2 pills t.i.d. and to start physical therapy. We will obtain urine toxicology screen at today's visit. Will also obtain a pill count in the near future. We will have him return to the office for me to carl the area off prior to his cervical spine films, so we can place a skin marker to confirm the location at C4-5. As part of providing excellent, safe, comprehensive care, the following was completed at our patient's visit: 1. A medication reconciliation and review to ensure accurate knowledge of current/active medications, including asking our patients to inform us about any ezsh-[id number] medications or herbal remedies/nutritional supplements/alternative remedies. 2. A review to specifically ensure our patients have had annual screening for: elevated body mass index (BMI, see intake chart for exact total), tobacco use, screening for depression, and screening for unhealthy alcohol use. When screening is concerning, patients are provided with education and the specific recommendation to discuss the concerning health issue and treatment options with their primary care provider. [facility] Clinical Note 10-27-2022 Note Date & Type Note Facility 10-27-2022 Note PROCEDURE: XR KNEE R T 4V or > HISTORY: Tear of medial meniscus of knee ; chronic right knee pain COMPARISON: None. FINDINGS: BONES:Elevated patella. No fracture, dislocation, bone lesion. No significant joint space narrowing. SOFT TISSUES:No visible soft tissue swelling. EFFUSION:None visible. OTHER: Negative. IMPRESSION: 1. Patella juan. Otherwise unremarkable right knee. Electronically authenticated by: EMIGDIO NAYLOR Date: 2022-10-27 15:00 [facility] Consultation note 09-10-2022 Note Date & Type Note Facility 09-10-2022 Note CONSULTATION PROCEDURE DATE: 09/10/2022 WBC Code M50.221 and M50.222. PREOPERATIVE DIAGNOSIS: Cervical disc collapse C4-C5, C5-C6. POSTOPERATIVE DIAGNOSIS: Cervical disc collapse C4-C5, C5-C6. PROCEDURE: Cervical trigger point injections. Subsequent to obtaining informed consent, the patient was placed in the upright sitting, head neutral position. Alcohol prep was used to sterilize bilateral locations of his C-spine. A 25 gauge needle with 0.125% Marcaine and 40 mg of Kenalog was used and divided into two locations. Needle was placed to rest inside the trigger zones with negative heme. Medication was injected in a slow, fan-like pattern. Patient tolerated the procedure well. He will be followed up in the office in three months or sooner if needed. [facility] Consultation note 06-26-2022 Note Date & Type Note Facility 06-26-2022 Note CONSULTATION CONSULTATION DATE: 06/26/2022 This is a 46-year-old gentleman who is a [facility] case and returns to the clinic for a 3-month follow-up for his chronic neck pain. Today he rates his pain 7 out of 10, describes it as an ache and throbbing. It is located along his mid-neck and pain radiates to bilateral shoulders, right greater than left. He also complains of extreme neck tightness which decreases his range of motion. 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 Activities such as twisting, pulling, standing, walking, bending and physical activity aggravate his pain. Medications include diclofenac 75 mg b.i.d., Percocet 5/325 t.i.d., Lyrica 100 mg b.i.d. and vitamin regimen. He is noting some increased right upper arm weakness and noticed that he has dropped things more than usual. REVIEW OF SYSTEMS, PAST MEDICAL HISTORY, ALLERGIES AND IMAGES: Have been reviewed and noted in the chart. PHYSICAL EXAM: VITAL SIGNS: Blood pressure 115/76, heart rate is 95, temperature is 98.4. Height is 5.8 , weighs 92.8 kg. GENERAL APPEARANCE: Pleasant, appropriate, no acute distress. FOCUSED EXAM: NECK: Range of motion is guarded in lateral rotation and flexion/extension. Cervical splenius capitis and cervical trapezius muscles are taut with two trigger points identified bilaterally. Compression along these muscles reproduces the patient's pain symptomatology. MUSCULOSKELETAL: Motor bilateral upper arms is 4/5, right upper extremity slight muscle weakness to wrist extensor. NEUROLOGICAL: Gross and fine motor are intact bilaterally. +1 brachioradialis reflexes. The patient is cognitively intact. Diffuse neuropathy bilateral upper extremities including all fingers. [facility] codes for diagnosis M50.221, M50.222. PLAN: We will increase his Percocet for the winter months to 5/325 q.i.d. We will preauthorize for bilateral cervical trigger point injections to mitigate his cervical spams. Upon approval, the patient will be called to the office to receive those injections. The patient does agree with the plan of care. [facility] Consultation note 04-03-2022 Note Date & Type Note Facility 04-03-2022 Note CONSULTATION CONSULTATION DATE: 04/03/2022 HISTORY OF PRESENT ILLNESS: This is a 46-year-old male who is being seen at our pain clinic for chronic neck pain and is a [facility] case. Patient did sustain a neck injury in 2014 due to a lifting incident. He was last seen on 12/26/2021 which, at that time, we were attempting to preauthorize for cervical medial branch blocks and a subsequent rhizotomy. That was declined by [facility] regardless of the pathology and the clinical we presented. Today, the patient's pain is increased. He rates it 8/10, constant and sharp. He has radicular pain, bilateral upper extremities that extend to his finger tips on both hands. He does use heat at times, which decreases the pain. Any activity and lifting aggravates his pain. The patient has had a fusion with anterior and posterior hardware intact. Current medications include Percocet 5/325 t.i.d., Lyrica 100 mg b.i.d., Remeron, Effexor and Aleve. Patient does have decreased range of motion in lateral rotation. With increased activity, the pain is so great that the patient has to lie on the couch and be immobile. It is affecting his quality of life. Patient's REVIEW OF SYSTEMS / PAST MEDICAL HISTORY / ALLERGIES and IMAGES have been reviewed and they are noted on the chart. PHYSICAL EXAM: VITAL SIGNS: Blood pressure 105/72, heart rate is 100. Temperature is 97.7. He is 5'8 and weighs 92 kg. GENERAL APPEARANCE: Pleasant, appropriate, moderately uncomfortable sitting in the chair. FOCUSED EXAM - NECK: Range of motion is guarded and decreased in lateral rotation, right greater than left. Flexion and extension are guarded as well. Reproduction of the spinal axial pain to direct compression along the cervical facets of C4, C5 and C5, C6. Fullness palpated as well, indicative of facet arthropathy, cervical spondylosis. Pain is radicular and extends below the elbows bilaterally. MUSCULOSKELETAL: Motor weakness is noted to bilateral extremities, right greater than left. Motor is 3/5 to the right, 4/5 to the left. This is in pushing and pulling. Range of motion is intact. NEUROLOGICAL: Diffuse neuropathy to bilateral upper extremities. Blunted bilateral brachioradialis reflexes. IMPRESSION: [facility] codes M50.221, M50.222. PLAN: We will add diclofenac 75 mg b.i.d. to help control his inflammatory pain. Lyrica will be increased to 150 mg b.i.d. No changes in his Percocet dose at this time. Heat application was encouraged as well as adding magnesium and a multivitamin. At this time, we will attempt to medically manage him, pending any further [facility] approval to move forward with procedural interventions. Patient is in agreement with this plan. We will see him back in early May for follow up. [facility] Summary Purpose Family History No Family History Records FoundNo Family History Records FoundNo Family History Records FoundNo Family History Records Found Advance Directives No Advanced Directives Records FoundNo Advanced Directives Records FoundNo Advanced Directives Records FoundNo Advanced Directives Records Found Additional Source Comments (unrecognized sect ion and content) No Status Records FoundNo Status Records FoundNo Status Records FoundNo Status Records Found INFORMATION SOURCE (unrecogn ized section and content) DATE CREATED AUTHOR 04/06/2019 [facility] DATE CREATED AUTHOR AUTHOR'S ORGANIZ ATION 11/09/2021 [facility] DATE CREATED AUTHOR AUTHOR'S ORGANIZ ATION 12/27/2021 [facility] DATE CREATED AUTHOR AUTHOR'S ORGANIZ ATION 01/14/2023 [facility] FOR RECORDS PERTAINING TO PATIENTS WHO ARE OR HAVE BEEN ENROLLED IN A CHEMICAL DEPENDENCY/SUBSTANCEABUSE PROGRAM, SOME INFORMATION MAY BE OMITTED. This clinical summary was aggregated from multiple sources. Caution should be exercised in using it in the provision of clinical care. This summary normalizes information from multiple sources, and as a consequence, information in this document may materially change the coding, format and clinical context of patient data. In addition, data may be omitted in some cases. CLINICAL DECISIONS SHOULD BE BASED ON THE PRIMARY CLINICAL RECORDS. [facility] provides no warranty or guarantee of the accuracy or completeness of information in this document.
--- NOTE | 2023-09-10 13:47 | P.CN_ITS ---
Consult Note: HPI Data of Consult Patient: known to practice within the last 3 years Requesting Physician: Anaid Phelps NP Primary Care Provider: GOLDEN RICHARDSON Consult Narrative Narrative: Lonnie Kenny a pleasant 47 year old male presents for evaluation of chronic neck pain post cervical fusion. Today rating pain 8/10. Patient has been taking lyrica 100mg AM and 200mg HS, percocet 5-325 QID PRN, diclofenac 75mg BID PRN, effexor 150mg daily, and baclofen 10mg TID. Patient is following with neurology and upcoming NS appointment. Recent cervical spine xray and CT. Patient would like to discuss medication management and additional procedures. cc:: CC: Anaid Phelps NP Review of Systems ROS Status of ROS 10 or more systems reviewed and unremark able except as noted in history and below Musculoskeletal Reports: neck pain Meds Home Medications and Allergies Home Medications Medication Instructions Recorded Confirmed Type atorvastatin 10 mg tablet 10 mg PO DAILY 05/13/23 05/13/23 History baclofen 10 mg tablet 10 mg PO TID 05/13/23 05/13/23 History cetirizine 10 mg tablet 10 mg PO DAILY PRN allergy symptoms 05/13/23 05/13/23 History cholecalciferol (vitamin D3) 25 25 mcg PO DAILY 05/13/23 05/13/23 History mcg (1,000 unit) capsule (Vitamin D3) diclofenac sodium 75 mg 75 mg PO BID 05/13/23 05/13/23 History tablet,delayed release docusate sodium 100 mg capsule 100 mg PO DAILY 05/13/23 05/13/23 History hydroxyzine HCl 10 mg tablet 10 mg PO DAILY 05/13/23 05/13/23 History lisinopril 20 1 tab PO DAILY 05/13/23 05/13/23 History mg-hydrochlorothiazide 12.5 mg tablet omeprazole 20 mg capsule,delayed 20 mg PO DAILY 05/13/23 05/13/23 History release oxycodone-acetaminophen 5 mg-325 1 tab PO QID 05/13/23 05/13/23 History mg tablet (Percocet) pregabalin 200 mg capsule (Lyrica) 200 mg PO BID 05/13/23 05/13/23 History tamsulosin 0.4 mg capsule (Flomax) 0.4 mg PO DAILY 05/13/23 05/13/23 History venlafaxine 150 mg 150 mg PO DAILY 05/13/23 05/13/23 History capsule,extended release 24 hr (Effexor XR) oxycodone-acetaminophen 5 mg-325 1 tab PO QID PRN pain #120 tabs 05/26/23 Rx mg tablet (Percocet) oxycodone-acetaminophen 5 mg-325 1 tab PO QID PRN pain #120 tabs 05/27/23 Rx mg tablet (Percocet) oxycodone-acetaminophen 5 mg-325 1 tab PO QID PRN pain #120 tabs 06/26/23 Rx mg tablet (Percocet) oxycodone-acetaminophen 5 mg-325 1 tab PO QID PRN pain #120 tabs 07/27/23 Rx mg tablet (Percocet) oxycodone-acetaminophen 5 mg-325 1 tab PO QID PRN pain #120 tabs 08/26/23 Rx mg tablet (Percocet) pregabalin 100 mg capsule (Lyrica) 100 mg PO BID #120 caps 08/26/23 Rx Allergies Allergy/AdvReac Type Severity Reaction Status Date / Time corn Allergy Vomiting Verified 05/13/23 15:44 Penicillins Allergy Hives Verified 05/13/23 15:44 ibuprofen AdvReac Nausea Verified 05/13/23 15:44 prednisone AdvReac Palpitation Verified 05/13/23 15:44 s Exam Constitutional Documenting provider has reviewed patient's vital signs: yes Common normals: no apparent distress, oriented x3, healthy appearing, alert and well nourished General appearance: cooperative [facility] Common normals: normocephalic, hearing grossly normal bilaterally and moist oral mucous membranes Head and scalp: normocephalic Eye Common normals: PERRL Pupil: PERRL Neck & C-Spine Cervical spine: cervical ROM abnormal, pain with cervical ROM and paracervical muscle tenderness Other: bilateral radiculopathy, pain and radicular symptoms worst on right Chest Common normals: inspection of chest normal Respiratory Common normals: normal respiratory effort, no retractions and no use of accessory muscles Extremity Common normals: normal to inspection and full ROM Neuro Common normals: oriented x3, CN's II-XII intact bilaterally, moves all extremities, no focal motor deficits, no sensory deficits noted and deep tendon reflexes 2+ bilaterally Sensorium/orientation: alert Motor exam: strength 5/5 throughout and no movement abnormalities noted Psych Common normals: mental status grossly normal, thought process normal, cooperative, affect normal, speech normal and activity/motor behavior normal Speech: normal speech Thought process: normal thought process Results Additional Findings Additional findings: Ct Cervical Spine 07/03/2020 fusion at c4,5,6 without complications, mild multilevel degenerative facet arthropathy, moderate disc space narrowing at C4-5 C5-6 C6-7, moderate or greater narrowing at C3-4 C4-5 C5-6 Assessment and Plan Assessment and Plan (1) Displacement of intervertebral disc at C5-C6 level: (2) Displacement of intervertebral disc at C4-C5 level: (3) Chronic prescription opiate use: Assessment and Plan: I have refilled the patient's opioid prescriptions at the above noted dose and schedule.? I feel these medications are improving the patient's quality of life and allow them to tolerate activities of daily living as well as participate in recreational activity.? The patient does not report intolerable side effects. The patient is NOT opioid naive and non-pharmacologic and non-opioid treatment has failed to significantly relieve the patient's pain and improve functionality. The patient has a diagnosis that is related to a somatic or visceral pain etiology. ? ?? I reviewed with the patient the potential risks and side effects with the use of? opioid medications including but not limited to respiratory depression,? sedation, and even . I verified the patient has access to naloxone should? these effects occur. I advised the patient to avoid the use of any other? sedation substances including alcohol, THC, and benzodiazepines while? taking opioid medications due to the risk of compounding side effects and? detrimental outcomes. I reviewed the BUTTONHOLE MACHINE OPERATOR, pain treatment agreement, urine? drug screen, and opioid start talking forms. The patient was advised to let? their family know they had Naloxone in case they would need to administer? the medication.? ?? A drug screen was completed within the last year, and no aberrancies were noted regarding their use of controlled substances. The patient understands they are subject to the terms and conditions of the pain contract that they have signed. ? ?? I have checked an [place]AR[place] report on this patient today and there are no aberrancies noted in the prescribing history.? The patient was advised that U.S. Food and Drug Administration (FDA) is warning that respiratory depression may occur in patients using gabapentin (Neurontin, Gralise, Horizant) or pregabalin (Lyrica, Lyrica CR) who have respiratory risk factors. These include the use of opioid pain medicines and other drugs that depress the central nervous system, and conditions such as chronic obstructive pulmonary disease (COPD) that reduce lung function. The elderly are also at higher risk.? Plan increase lyrica to 100mg am 100mg afternoon 200mg PM increase percocet 5-7.5 325mg QID PRN 130 tablets/month for moderate to severe pain continue baclofen 10mg TID, diclofenac 75mg BID PRN, effexor 150mg daily plan for right C3-4 C4-5 TFESI based on physical exam and prior CT findings continue f/u with neurology and neurosurgery f/u 2 weeks after TFESI or 2-3 months for medication management
== END 2023-09-10 13:23 | disposition home or self-care (01) ==
LOC: PM 13:24
PROVIDERS: PCP Family Medicine; Visit Provider Nurse Practitioner
DX: M50.221 Other cervical disc displacement at C4-C5 level (principal); M50.222 Other cervical disc displacement at C5-C6 level; Z79.891 Long term (current) use of opiate analgesic
CPT/HCPCS: G0463

== ENCOUNTER 2023-11-11 13:24 | Outpatient (OUT) | payer OTHER, SELFPAY ==
--- NOTE | 2023-11-11 13:46 | PM.CN ---
Consult Note: HPI Data of Consult Patient: known to practice within the last 3 years Requesting Physician: Anaid Phelps NP Primary Care Provider: GOLDEN RICHARDSON Consult Narrative Narrative: Lonnie Kenny a pleasant 47 year old male presents for evaluation of chronic neck pain post cervical fusion. Today rating pain 8/10. Patient has been taking lyrica 100mg AM 100mg PM and 200mg HS, percocet 5-7.5-325 QID PRN, diclofenac 75mg BID PRN, effexor 150mg daily, and baclofen 10mg TID. Patient is following with neurology and upcoming NS appointment. Patient finding mild to moderate benefit from current medication regimen without side effects. cc:: CC: Anaid Phelps NP Review of Systems ROS Status of ROS 10 or more systems reviewed and unremarkable except as noted in history and below Musculoskeletal Reports: neck pain Meds Home Medications and Allergies Home Medications Medication Instructions Recorded Confirmed Type atorvastatin 10 mg tablet 10 mg PO DAILY 05/13/23 05/13/23 History baclofen 10 mg tablet 10 mg PO TID 05/13/23 05/13/23 History cetirizine 10 mg tablet 10 mg PO DAILY PRN allergy symptoms 05/13/23 05/13/23 History cholecalciferol (vitamin D3) 25 25 mcg PO DAILY 05/13/23 05/13/23 History mcg (1,000 unit) capsule (Vitamin D3) diclofenac sodium 75 mg 75 mg PO BID 05/13/23 05/13/23 History tablet,delayed release docusate sodium 100 mg capsule 100 mg PO DAILY 05/13/23 05/13/23 History hydroxyzine HCl 10 mg tablet 10 mg PO DAILY 05/13/23 05/13/23 History lisinopril 20 1 tab PO DAILY 05/13/23 05/13/23 History mg-hydrochlorothiazide 12.5 mg tablet omeprazole 20 mg capsule,delayed 20 mg PO DAILY 05/13/23 05/13/23 History release oxycodone-acetaminophen 5 mg-325 1 tab PO QID 05/13/23 05/13/23 History mg tablet (Percocet) pregabalin 200 mg capsule (Lyrica) 200 mg PO BID 05/13/23 05/13/23 History tamsulosin 0.4 mg capsule (Flomax) 0.4 mg PO DAILY 05/13/23 05/13/23 History venlafaxine 150 mg 150 mg PO DAILY 05/13/23 05/13/23 History capsule,extended release 24 hr (Effexor XR) oxycodone-acetaminophen 5 mg-325 1 tab PO QID PRN pain #120 tabs 05/26/23 Rx mg tablet (Percocet) oxycodone-acetaminophen 5 mg-325 1 tab PO QID PRN pain #120 tabs 05/27/23 Rx mg tablet (Percocet) oxycodone-acetaminophen 5 mg-325 1 tab PO QID PRN pain #120 tabs 06/26/23 Rx mg tablet (Percocet) oxycodone-acetaminophen 5 mg-325 1 tab PO QID PRN pain #120 tabs 07/27/23 Rx mg tablet (Percocet) oxycodone-acetaminophen 5 mg-325 1 tab PO QID PRN pain #120 tabs 08/26/23 Rx mg tablet (Percocet) pregabalin 100 mg capsule (Lyrica) 100 mg PO BID #120 caps 08/26/23 Rx oxycodone-acetaminophen 5 mg-325 1 tab PO QID PRN pain #130 tabs 09/25/23 Rx mg tablet (Percocet) oxycodone-acetaminophen 5 mg-325 1 tab PO QID PRN pain #130 tabs 10/23/23 Rx mg tablet (Percocet) Allergies Allergy/AdvReac Type Severity Reaction Status Date / Time corn Allergy Vomiting Verified 05/13/23 15:44 Penicillins Allergy Hives Verified 05/13/23 15:44 ibuprofen AdvReac Nausea Verified 05/13/23 15:44 prednisone AdvReac Palpitation Verified 05/13/23 15:44 s Exam Constitutional Documenting provider has reviewed patient's vital signs: yes Common normals: no apparent distress, oriented x3, healthy appearing, alert and well nourished General appearance: cooperative [facility] Common normals: normocephalic, hearing grossly normal bilaterally and moist oral mucous membranes Head and scalp: normocephalic Eye Common normals: PERRL Pupil: PERRL Neck & C-Spine Common normals: full ROM General: normal visual inspection Cervical spine: cervical ROM abnormal, pain with cervical ROM and paracervical muscle tenderness Other: bilateral radiculopathy, pain and radicular symptoms worst on right Chest Common normals: inspection of chest normal Respiratory Common normals: normal respiratory effort, no retractions and no use of accessory muscles Extremity Common normals: normal to inspection and full ROM Neuro Common normals: oriented x3, CN's II-XII intact bilaterally, moves all extremities, no focal motor deficits, no sensory deficits noted and deep tendon reflexes 2+ bilaterally Sensorium/orientation: alert Motor exam: strength 5/5 throughout and no movement abnormalities noted Psych Common normals: mental status grossly normal, thought process normal, cooperative, affect normal, speech normal and activity/motor behavior normal Speech: normal speech Thought process: normal thought process Results Additional Findings Additional findings: If on a controlled substance or opioids, I have checked an [place] report on this patient today and there are no aberrancies noted in the prescribing history.?? A drug screen was completed and reviewed within the last year, and if there has not been a drug screen completed we ordered one today to monitor higher risk, state monitored pain medication use. As part of providing excellent, safe, comprehensive care, the following was completed at our patient's visit: Reviewed patients? medication reconciliation. An annual review has been completed for the following: screening for depression, screening for tobacco use, and screening for unhealthy alcohol use. For concerning screenings had a discussion with the patient, provided patient education, and recommended follow-up with primary care provider when appropriate. If patient noted with a risk of falling, they received education on strength, gait, and balance training to prevent future risk of falling. Assessment and Plan Assessment and Plan (1) Displacement of intervertebral disc at C5-C6 level: (2) Displacement of intervertebral disc at C4-C5 level: (3) Chronic prescription opiate use: Assessment and Plan: I have refilled the patient's opioid prescriptions at the above noted dose and schedule.? I feel these medications are improving the patient's quality of life and allow them to tolerate activities of daily living as well as participate in recreational activity.? The patient does not report intolerable side effects. The patient is NOT opioid naive and non-pharmacologic and non-opioid treatment has failed to significantly relieve the patient's pain and improve functionality. The patient has a diagnosis that is related to a somatic or visceral pain etiology. ? ?? I reviewed with the patient the potential risks and side effects with the use of? opioid medications including but not limited to respiratory depression,? sedation, and even . I verified the patient has access to naloxone should? these effects occur. I advised the patient to avoid the use of any other? sedation substances including alcohol, THC, and benzodiazepines while? taking opioid medications due to the risk of compounding side effects and? detrimental outcomes. I reviewed the EMPLOYEE HEALTH NURSE, pain treatment agreement, urine? drug screen, and opioid start talking forms. The patient was advised to let? their family know they had Naloxone in case they would need to administer? the medication.? ?? A drug screen was completed within the last year, and no aberrancies were noted regarding their use of controlled substances. The patient understands they are subject to the terms and conditions of the pain contract that they have signed. ? ?? I have checked an [place]AR[place] report on this patient today and there are no aberrancies noted in the prescribing history.? The patient was advised that U.S. Food and Drug Administration (FDA) is warning that respiratory depression may occur in patients using gabapentin (Neurontin, Gralise, Horizant) or pregabalin (Lyrica, Lyrica CR) who have respiratory risk factors. These include the use of opioid pain medicines and other drugs that depress the central nervous system, and conditions such as chronic obstructive pulmonary disease (COPD) that reduce lung function. The elderly are also at higher risk.? Plan stop baclofen, start tizanidine 4mg TID PRN myofascial pain continue lyrica to 100mg am 100mg afternoon 200mg PM continue percocet 5-7.5 325mg QID PRN 130 tablets/month for moderate to severe pain continue diclofenac 75mg BID PRN, effexor 150mg daily defer injection therapy at this time continue f/u with neurology and neurosurgery f/u 1 month
== END 2023-11-11 13:25 | disposition home or self-care (01) ==
PROVIDERS: PCP Family Medicine; Visit Provider Nurse Practitioner
DX: M50.222 Other cervical disc displacement at C5-C6 level (principal); M50.221 Other cervical disc displacement at C4-C5 level; Z79.891 Long term (current) use of opiate analgesic
CPT/HCPCS: G0463

== ENCOUNTER 2023-12-17 12:34 | Outpatient (OUT) | payer OTHER, SELFPAY ==
--- NOTE | 2023-12-17 13:07 | P.CN_ITS ---
Consult Note: HPI Data of Consult Patient: known to practice within the last 3 years Requesting Physician: Anaid Phelps NP Primary Care Provider: GOLDEN RICHARDSON Consult Narrative Narrative: oLnnie Kenny a pleasant 47 year old male presents for evaluation of chronic neck pain post cervical fusion. Today rating pain 6/10, increasing to 9/10. Patient has been taking lyrica 100mg AM 100mg PM and 200mg HS, percocet 5-7.5-325 QID PRN, diclofenac 75mg BID PRN, effexor 150mg daily, and baclofen 10mg TID. Patient is following with neurology and NS. Patient finding mild to moderate benefit from current medication regimen without side effects. continues to engage in HEP without benefit cc:: CC: Anaid Phelps NP Review of Systems ROS Status of ROS 10 or more systems reviewed and unremark able except as noted in history and below Musculoskeletal Reports: neck pain Meds Home Medications and Allergies Home Medications ?Medication ?Instructions ?Recorded ?Confirmed ?Type atorvastatin 10 mg tablet 10 mg PO DAILY 05/13/23 05/13/23 History baclofen 10 mg tablet 10 mg PO TID 05/13/23 05/13/23 History cetirizine 10 mg tablet 10 mg PO DAILY PRN allergy symptoms 05/13/23 05/13/23 History cholecalciferol (vitamin D3) 25 25 mcg PO DAILY 05/13/23 05/13/23 History mcg (1,000 unit) capsule (Vitamin D3) diclofenac sodium 75 mg 75 mg PO BID 05/13/23 05/13/23 History tablet,delayed release docusate sodium 100 mg capsule 100 mg PO DAILY 05/13/23 05/13/23 History hydroxyzine HCl 10 mg tablet 10 mg PO DAILY 05/13/23 05/13/23 History lisinopril 20 1 tab PO DAILY 05/13/23 05/13/23 History mg-hydrochlorothiazide 12.5 mg tablet omeprazole 20 mg capsule,delayed 20 mg PO DAILY 05/13/23 05/13/23 History release oxycodone-acetaminophen 5 mg-325 1 tab PO QID 05/13/23 05/13/23 History mg tablet (Percocet) pregabalin 200 mg capsule (Lyrica) 200 mg PO BID 05/13/23 05/13/23 History tamsulosin 0.4 mg capsule (Flomax) 0.4 mg PO DAILY 05/13/23 05/13/23 History venlafaxine 150 mg 150 mg PO DAILY 05/13/23 05/13/23 History capsule,extended release 24 hr (Effexor XR) oxycodone-acetaminophen 5 mg-325 1 tab PO QID PRN pain #120 tabs 05/26/23 Rx mg tablet (Percocet) oxycodone-acetaminophen 5 mg-325 1 tab PO QID PRN pain #120 tabs 05/27/23 Rx mg tablet (Percocet) oxycodone-acetaminophen 5 mg-325 1 tab PO QID PRN pain #120 tabs 06/26/23 Rx mg tablet (Percocet) oxycodone-acetaminophen 5 mg-325 1 tab PO QID PRN pain #120 tabs 07/27/23 Rx mg tablet (Percocet) oxycodone-acetaminophen 5 mg-325 1 tab PO QID PRN pain #120 tabs 08/26/23 Rx mg tablet (Percocet) pregabalin 100 mg capsule (Lyrica) 100 mg PO BID #120 caps 08/26/23 Rx oxycodone-acetaminophen 5 mg-325 1 tab PO QID PRN pain #130 tabs 09/25/23 Rx mg tablet (Percocet) oxycodone-acetaminophen 5 mg-325 1 tab PO QID PRN pain #130 tabs 10/23/23 Rx mg tablet (Percocet) oxycodone-acetaminophen 5 mg-325 1 tab PO QID PRN pain #130 tabs 11/24/23 Rx mg tablet (Percocet) Allergies Allergy/AdvReac Type Severity Reaction Status Date / Time corn Allergy Vomiting Verified 05/13/23 15:44 Penicillins Allergy Hives Verified 05/13/23 15:44 ibuprofen AdvReac Nausea Verified 05/13/23 15:44 prednisone AdvReac Palpitation Verified 05/13/23 15:44 s Exam Constitutional Documenting provider has reviewed patient's vital signs: yes Common normals: no apparent distress, oriented x3, healthy appearing, alert and well nourished General appearance: cooperative HEN[facility] Common normals: normocephalic, hearing grossly normal bilaterally and moist oral mucous membranes Head and scalp: normocephalic Eye Common normals: PERRL Pupil: PERRL Neck & C-Spine Common normals: full ROM General: normal visual inspection Cervical spine: cervical ROM abnormal, pain with cervical ROM and paracervical muscle tenderness Other: bilateral radiculopathy, pain and radicular symptoms worst on right Chest Common normals: inspection of chest normal Respiratory Common normals: normal respiratory effort, no retractions and no use of accessory muscles Extremity Common normals: normal to inspection and full ROM Neuro Common normals: oriented x3, CN's II-XII intact bilaterally, moves all extremities, no focal motor deficits, no sensory deficits noted and deep tendon reflexes 2+ bilaterally Sensorium/orientation: alert Motor exam: strength 5/5 throughout and no movement abnormalities noted Psych Common normals: mental status grossly normal, thought process normal, cooperative, affect normal, speech normal and activity/motor behavior normal Speech: normal speech Thought process: normal thought process Results Additional Findings Additional findings: If on a controlled substance or opioids, I have checked an OARRS report on this patient and there are no aberrancies noted in the prescribing history.??If on a controlled substance or opioid a drug screen was completed and reviewed within the last year, and if there has not been a drug screen completed we ordered one today to monitor higher risk, state monitored pain medication use. As part of providing excellent, safe, comprehensive care, the following was completed at our patient's visit: 1. A medication reconciliation and review to ensure accurate knowledge of current/active medications, including asking our patients to inform us about any [id number] medications or herbal remedies/nutritional supplements/alternative remedies. 2. A review to specifically ensure our patients have had annual screening for screening for depression, screening for tobacco use, and screening for unhealthy alcohol use. For concerning screenings had a discussion with the patient, provided patient education, and recommended follow-up with primary care provider when appropriate. If patient noted with a risk of falling, they received education on strength, gait, and balance training to prevent future risk of falling. Assessment and Plan Assessment and Plan (1) Displacement of intervertebral disc at C5-C6 level: (2) Displacement of intervertebral disc at C4-C5 level: (3) Chronic prescription opiate use: Assessment and Plan: I have refilled the patient's opioid prescriptions at the above noted dose and schedule.? I feel these medications are improving the patient's quality of life and allow them to tolerate activities of daily living as well as participate in recreational activity.? The patient does not report intolerable side effects. The patient is NOT opioid naive and non-pharmacologic and non-opioid treatment has failed to significantly relieve the patient's pain and improve functionality. The patient has a diagnosis that is related to a somatic or visceral pain etiology. ? ?? I reviewed with the patient the potential risks and side effects with the use of? opioid medications including but not limited to respiratory depression,? sedation, and even . I verified the patient has access to naloxone should? these effects occur. I advised the patient to avoid the use of any other? sedation substances including alcohol, THC, and benzodiazepines while? taking opioid medications due to the risk of compounding side effects and? detrimental outcomes. I reviewed the DIRECTOR CAREER, pain treatment agreement, urine? drug screen, and opioid start talking forms. The patient was advised to let? their family know they had Naloxone in case they would need to administer? the medication.? ?? A drug screen was completed within the last year, and no aberrancies were noted regarding their use of controlled substances. The patient understands they are subject to the terms and conditions of the pain contract that they have signed. ? ?? I have checked an OARRS report on this patient today and there are no aberrancies noted in the prescribing history.? The patient was advised that U.S. Food and Drug Administration (FDA) is warning that respiratory depression may occur in patients using gabapentin (Neurontin, Gralise, Horizant) or pregabalin (Lyrica, Lyrica CR) who have respiratory risk factors. These include the use of opioid pain medicines and other drugs that depress the central nervous system, and conditions such as chronic obstructive pulmonary disease (COPD) that reduce lung function. The elderly are also at higher risk.? Plan pt was evaluated by NS at [facility], we have requested their records but patient reports they recommended injection therapy C4-5 SHEFALI under fluoroscopy continue tizanidine 4mg TID PRN myofascial pain continue lyrica to 100mg am 100mg afternoon 200mg PM continue percocet 5-7.5 325mg QID PRN 130 tablets/month for moderate to severe pain continue diclofenac 75mg BID PRN, effexor 150mg daily continue f/u with neurology and neurosurgery f/u after SHEFALI
== END 2023-12-17 12:35 | disposition home or self-care (01) ==
LOC: PM 12:34
PROVIDERS: PCP Family Medicine; Visit Provider Nurse Practitioner
DX: M50.221 Other cervical disc displacement at C4-C5 level (principal); M50.222 Other cervical disc displacement at C5-C6 level; Z79.899 Other long term (current) drug therapy
CPT/HCPCS: G0463

== ENCOUNTER 2024-02-15 13:14 | Outpatient (OUT) | payer OTHER, SELFPAY ==
--- OUTSIDE RECORDS SUMMARY | 2024-02-15 13:18 | XMS_ITS ---
Patient Summarization (C-CDA 2.1 CCD) Created on: February 15, 2024 MARINAVEL Mata : 1975 Sex: Undifferentiated Author Organization Sample organization Care Team Providers Care 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 Name Role Phone RODRICK RAMIRES Primary Care Unavailable RODRICK RAMIRES Referring Unavailable STEVE LEVINESEIN No Attending Unavailable ALMA LEVINE Admitting Unavailable MISC, DR KELLEY Admitting Unavailable Greta Naylor Consulting Unavailable DEBRA, DR RODRICK Bryan Primary Care Unavailable MISC, DR KELLEY Attending Unavailable SCHAILIN, DR JEFFERS Consulting Unavailable PECK ., DR SHAN Ramachandran Attending Unavailable PECK ., DR SHAN Ramachandran Admitting Unavailable FREEMAN ., ISAIAH Consulting Unavailable DINA, DR ESTELA Heredia Primary Care Unavailable PECK ., DR SHAN Ramachandran Attending Unavailable FREEMAN ., ISAIAH Consulting Unavailable DINA, DR ESTELA Heredia Primary Care Unavailable PECK ., DR SHAN Ramachandran Admitting Unavailable FREEMAN ., ISAIAH Consulting Unavailable DINA, DR ESTELA Heredia Primary Care Unavailable PECK ., DR SHAN Ramachandran Attending Unavailable PECK ., DR SHAN Ramachandran Admitting Unavailable LAKSHMIPATHY ., JAIME Attending Sherie vailable LAKSHMIPATHY ., NARHAILEY Admitting Sherie vailable FREEMAN ., ISAIAH Consulting Unavailable DEBRA, DR RODRICK Bryan Primary Care Unavailable LAKSHMIPATHY ., JAIME Consulting Sherie vailable PECK ., DR SHAN Ramachandran Attending Unavailable FREEMAN ., ISAIAH Consulting Unavailable DINA, DR ESTELA Heredia Primary Care Unavailable PECK ., DR SHAN Ramachandran Admitting Unavailable LAKSHMIPATHY ., NARENDTYLER Attending Sherie vailable LAKSHMIPATHY ., JAIME Admitting Sherie vailable FURCRUZ, DR RODRICK Bryan Primary Care Unavailable LAKSHMIPATHY ., NARENDRANATH Consulting Sherie vailable LAKSHMIPATHY ., NARENDLEEATH Attending Sherie vailable LAKSHMIPATHY ., NARENDTYLER Admitting Sherie vailable FURDR RODRICK SRINIVASAN Primary Care Unavailable LAKSHMIPATHY ., NARENDRANATH Attending Sherie vailable LAKSHMIPATHY ., NARENDRANATH Admitting Sherie vailable Greta Naylor Consulting Unavailable DR RODRICK RAMIRES Primary Care Unavailable LAKSHMIPATHY ., JAIME Consulting Sherie vailable MARIAM, DR JEFFERS Attending Unavailable MARIAM, DR JEFFERS Admitting Unavailable Greta Naylor Consulting Unavailable FURLONG, DR RODRICK Bryan Primary Care Unavailable SCHLISAMUEL, DR JEFFERS Consulting Unavailable Furlong DORodrick Primary Care Provider RODRICK RAMIRES Primary Care Unavailable MARY MONZON Referring Unavailable MUFTI, MARY Attending Unavailable MUFTJelena, MARY Referring Unavailable RODRICK RAMIRES Primary Care Unavailable RODRICK RAMIRES Attending Unavailable RODRICK RAMIRES Referring Unavailable FURLONGRODRICK Primary Care Unavailable FURLONGRODRICK Referring Unavailable FURLONGRODRICK Primary Care Unavailable Allergies Allergy Classification Reported Allergen(s) Allergy Type Date of Onset Reaction(s) Facility corn extract (1 source) corn extract; Translations: [CORN] Drug Allergy 7 [facility] Corticosteroids (1 source) predniSONE; Translations: [PREDNISONE] Drug Allergy 7 [facility] NSAIDs (1 source) Ibuprofen; Translations: [IBUPROFEN] Drug Allergy 7 [facility] Penicillins (antibiotic) (1 source) Penicillins; Translations: [PENICILLINS] Drug Allergy 7 [facility] (8 sources) corn extract; Translations: [CORN] Drug Allergy 6 Diarrhea [facility] (9 sources) Ibuprofen; Translations: [IBUPROFEN] Drug Allergy 6 GI Disturbance [facility] (3 sources) Penicillins; Translations: [PENICILLINS] Drug allergy (disorder) 5 [facility] (9 sources) predniSONE; Translations: [PREDNISONE] Drug Allergy 6 [facility] (1 source) [place] Containing Products Drug allergy (disorder) [facility] (6 sources) Penicillins Propensity to adverse reactions to drug 7 [facility] Encounters Encounter Date Encounter Type Care Provider Facility Start: 02-09-2024 End: 02-09-2024 ambulatory [facility] Start: 02-09-2024 End: 02-09-2024 ambulatory [facility] Start: 12-01-2023 Refill Estela Espinoza BELTING INSPECTOR-BUILDING ESTIMATOR Work Phone: [facility] Comment on above: Hyperlipidemia, unsp ecified Start: 10-30-2023 Refill Lenny Harrison Work Phone: [facility] Start: 10-03-2023 End: 10-06-2023 ambulatory [facility] Start: 10-01-2023 Orders Only Estela Ramirezrosio BELTING INSPECTOR-BUILDING ESTIMATOR Work Phone: [facility] Start: 10-01-2023 Refill [facility] Work Phone: [facility] Comment on above: Insomnia, unspecifie d Start: 09-30-2023 End: 10-01-2023 ambulatory [facility] Start: 09-28-2023 Refill Estela Espinoza BELTING INSPECTOR-BUILDING ESTIMATOR Work Phone: [facility] Comment on above: Other specified depr essive episodes; Urticaria, unspecified Gastro-esophageal re flux disease without esophagitis Start: 01-13-2023 End: 01-14-2023 ambulatory NARENDRANATH LAKSHMIPATHY . Facility: Start: 12-16-2022 End: 12-17-2022 ambulatory NARENDRANATH LAKSHMIPATHY . Facility:[facility] Start: 12-04-2022 End: 12-05-2022 ambulatory NARENDRANATH LAKSHMIPATHY . Facility:[facility] Start: 10-27-2022 End: 10-28-[address] DOCTOR SOSA Facility:[facility] Start: 09-10-2022 End: 09-11-2022 ambulatory ISAIAH FREEMAN . Facility:[facility] Start: 09-04-[address] SHAN PECK . Faci lity:[facility] Start: 06-26-2022 End: 06-27-[address] SHAN PECK . Facility:[facility] Start: 04-03-2022 End: 04-04-[address] SHAN PECK . Facility:[facility] Start: 10-30-2021 End: 10-31-2021 ambulatory RODRICK GUERRIERARASHOK Facility:[facility] Immunizations Immunization Date Immunization Notes Care Provider Fa cili 08-19-2021 Influenza, injectabl e, Madin Sasha Canine Kidney, preservative free, quadrivalent Estela Kuns BELTING INSPECTOR-BUILDING ESTIMATOR Work Phone: [facility] 08-19-2021 influenza virus vaccine, unspecified formulation Estela Kuns BELTING INSPECTOR-BUILDING ESTIMATOR Work Phone: [facility] 12-14-2020 COVID-19, mRNA, LNP- S, PF, 100mcg/0.5mL Dose Estela Kuns BELTING INSPECTOR-BUILDING ESTIMATOR Work Phone: [facility] 12-11-2020 COVID-19, mRNA, LNP- S, PF, 100mcg/0.5mL Dose Estela Kuns BELTING INSPECTOR-BUILDING ESTIMATOR Work Phone: [facility] 11-16-2020 COVID-19, mRNA, LNP- S, PF, 100mcg/0.5mL Dose Estela Kuns BELTING INSPECTOR-BUILDING ESTIMATOR Work Phone: [facility] 11-13-2020 COVID-19, mRNA, LNP- S, PF, 100mcg/0.5mL Dose Estela Kuns BELTING INSPECTOR-BUILDING ESTIMATOR Work Phone: [facility] 08-27-2019 Influenza, injectabl e, Madin Sasha Canine Kidney, preservative free, quadrivalent Estela Kuns BELTING INSPECTOR-BUILDING ESTIMATOR Work Phone: [facility] 06-13-2019 influenza, seasonal, injectable Estela Espinoza BELTING INSPECTOR-BUILDING ESTIMATOR Work Phone: [facility] 06-11-2018 influenza, injectabl e, quadrivalent, preservative free Estela Espinoza BELTING INSPECTOR-BUILDING ESTIMATOR Work Phone: [facility] 06-11-2018 influenza, seasonal, injectable Estela Espinoza BELTING INSPECTOR-BUILDING ESTIMATOR Work Phone: [facility] 09-11-2017 Influenza, injectabl e, Madin Sasha Canine Kidney, preservative free, quadrivalent Estela Espinoza BELTING INSPECTOR-BUILDING ESTIMATOR Work Phone: [facility] 11-30-2015 tetanus toxoid, redu drew diphtheria toxoid, and acellular pertussis vaccine, adsorbed Estela Espinoza BELTING INSPECTOR-BUILDING ESTIMATOR Work Phone: [facility] 08-21-2015 influenza, seasonal, injectable, preservative free Estela Espinoza BELTING INSPECTOR-BUILDING ESTIMATOR Work Phone: [facility] 01-25-2014 hepatitis B vaccine, adult dosage Estela Espinoza BELTING INSPECTOR-BUILDING ESTIMATOR Work Phone: [facility] 09-26-2013 hepatitis B vaccine, adult dosage Estela Espinoza BELTING INSPECTOR-BUILDING ESTIMATOR Work Phone: [facility] 07-27-2013 hepatitis B vaccine, adult dosage Estela Espinoza BELTING INSPECTOR-BUILDING ESTIMATOR Work Phone: [facility] Medications Current Medications Medication Drug Class(es) Dates Sig (Normalized) Sig (Original) acetaminophen 325 mg / oxyCODONE hydrochloride 5 mg oral tablet (6 sources) Opioid Agonist take 1 tablet by mouth every four hours as needed for pain oxyCODONE-acetamin ophen (PERCOCET) 5-325 mg per tablet Take 1 tablet by mouth every 4 (four) hours as needed for pain. 0 Active [id number] 200 actuat albuterol 0.09 mg/actuat metered dose inhaler (6 sources) beta2-Adrenergic Agonist take 2 puff(s) by inhalation every six hours as needed for wheezing albuterol (PROVENTIL HFA;VENTOLIN HFA) 90 mcg/actuation inhaler Inhale 2 puffs every 6 (six) hours as needed for wheezing. 0 Active baclofen 20 mg oral tablet (6 sources) gamma-Aminobutyric Acid-ergic Agonist Start: 3 take 0.5-1 tablets by mouth three times daily baclofen (LIORESAL) 20 mg tablet TAKE 1/2-1 TABLET BY MOUTH THREE TIMES A DAY 0 03/17/2023 Active calcium citrate 950 mg oral tablet (6 sources) Start: 3 take 2 tablets by mouth three times daily calcium citrate (CALCITRATE) 200 mg (950 mg) tablet Indications: Arthrodesis status TAKE 2 TABLETS BY MOUTH 3 TIMES A DAY 540 tablet 1 10/30/2022 Active cetirizine hydrochloride 10 mg oral tablet (6 sources) Histamine-1 Receptor Antagonist take 1 tablet by mouth in the morning cetirizine (ZyrTEC) 10 mg tablet Take 1 tablet (10 mg total) by mouth in the morning. 0 Active cholecalciferol 0.05 mg oral tablet (6 sources) Vitamin D take 1 tablet by mouth once daily cholecalciferol, vitamin D3, 2,000 units tablet cholecalciferol (vitamin D3) 50 mcg (2,000 unit) tablet TAKE 1 TABLET BY MOUTH EVERY DAY 0 Active diclofenac sodium 75 mg delayed release oral tablet (6 sources) Nonsteroidal Anti-inflammatory Drug Start: 2 take 1 tablet by mouth in the morning, then take 1 tablet by mouth at mealtime diclofenac (VOLTAREN) 75 mg EC tablet Take 1 tablet (75 mg total) by mouth in the morning and 1 tablet (75 mg total) in the evening. Take with meals. 0 06/05/2022 Active docusate sodium 100 mg oral capsule (6 sources) Start: 2 take 1 capsule by mouth once daily STOOL SOFTENER 100 mg capsule Indications: Constipation, unspecified TAKE 1 CAPSULE BY MOUTH EVERY DAY 30 capsule 5 05/06/2022 Active hydroCHLOROthiazide 12.5 mg / lisinopril 20 mg oral tablet (6 sources) Thiazide Diuretic, Angiotensin Converting Enzyme Inhibitor Start: 3 take 1 tablet by mouth once daily lisinopril-hydroCH LOROthiazide (PRINZIDE,ZESTORET IC) 20-12.5 mg per tablet Indications: Essential (primary) hypertension TAKE 1 TABLET BY MOUTH EVERY DAY 90 tablet 1 07/08/2023 Active hydrOXYzine hydrochloride 10 mg oral tablet (7 sources) Antihistamine Start: 3 End: 4 take 1 tablet by mouth once daily in the evening hydrOXYzine (ATARAX) 10 mg tablet Indications: Urticaria, unspecified TAKE 1 TABLET BY MOUTH EVERY DAY IN THE EVENING 90 tablet 1 09/28/2023 Active ketoconazole 20 mg/ml medicated shampoo (6 sources) Azole Antifungal Start: 3 ketoconazole (NIZORAL) 2 % shampoo APPLY TOPICALLY 3 TIMES A WEEK 0 04/11/2023 Active mirtazapine 15 mg oral tablet (7 sources) Start: 3 End: 4 take 1 tablet by mouth once daily mirtazapine (REMERON) 15 mg tablet Indications: Insomnia, unspecified TAKE 1 TABLET BY MOUTH EVERY DAY 90 tablet 0 10/01/2023 Active omeprazole 20 mg delayed release oral capsule (7 sources) Proton Pump Inhibitor Start: 3 End: 4 take 1 capsule by mouth once daily omeprazole (PriLOSEC) 20 mg capsule Indications: Gastro-esophageal reflux disease without esophagitis TAKE 1 CAPSULE BY MOUTH EVERY DAY 90 capsule 1 09/28/2023 Active 24 hr oxybutynin chloride 10 mg extended release oral tablet (7 sources) Cholinergic Muscarinic Antagonist Start: 3 End: 4 take 1 tablet by mouth every twenty-four hours in the morning oxybutynin XL (DITROPAN-XL) 10 mg 24 hr tablet TAKE 1 TABLET BY MOUTH IN THE MORNING 90 tablet 1 10/30/2023 Active phentermine hydrochloride 37.5 mg oral tablet (6 sources) Sympathomimetic Amine Anorectic Start: 3 take 30-30.9 tablets by mouth once daily before breakfast phentermine (ADIPEX-P) 37.5 mg tablet Indications: Class 1 obesity due to excess calories without serious comorbidity with body mass index (BMI) of 30.0 to 30.9 in adult Take 1 tablet (37.5 mg total) by mouth every morning before breakfast. 30 tablet 0 05/25/2023 Active pregabalin 50 mg oral capsule (6 sources) take 1 capsule by mouth in the morning, then take 1 capsule by mouth at bedtime pregabalin (LYRICA) 50 mg capsule Take 1 capsule (50 mg total) by mouth in the morning and 1 capsule (50 mg total) before bedtime. 0 Active rosuvastatin calcium 10 mg oral tablet (7 sources) HMG-CoA Reductase Inhibitor Start: 3 End: 4 take 1 tablet by mouth once daily rosuvastatin (CRESTOR) 10 mg tablet Indications: Hyperlipidemia, unspecified take 1 tablet by mouth every day 90 tablet 3 12/01/2023 Active tamsulosin hydrochloride 0.4 mg oral capsule (6 sources) alpha-Adrenergic Danica Start: 3 take 1 capsule by mouth once daily tamsulosin (FLOMAX) 0.4 mg capsule TAKE 1 CAPSULE BY MOUTH NIGHTLY 30 capsule 5 06/02/2023 Active 24 hr venlafaxine 150 mg extended release oral capsule (7 sources) Serotonin and Norepinephrine Reuptake Inhibitor Start: 3 End: 4 take 1 capsule by mouth once daily venlafaxine XR (EFFEXOR-XR) 150 mg 24 hr capsule Indications: Other specified depressive episodes TAKE 1 CAPSULE BY MOUTH EVERY DAY 90 capsule 1 09/28/2023 Active Payers Date Payer Category Payer Unknown [id number] 2021 Medicare ANTHEM MEDICARE ANTHEM MEDICARE ADVANTAGE [id number] 2021-[facility] [phone] [address] [place] [address] [id number] 2021 Medicare [id number] 1975 Unknown [id number] [id number]. 647 1975 Unknown [id number] 2.16.840.1.927460.3.579.2. 593 1975 Unknown [id number] 2.16.840.1.393393.3.579.2. 593 1975 Unknown [id number] 2.16.840.1.560169.3.579.2. 593 1975 Unknown [id number] 2.16.840.1.410257.3.579.2. 593 1975 Unknown [id number] 2.16.840.1.011164.3.579.2. 593 1975 Unknown [id number] 2.16.840.1.496822.3.579.2. 593 1975 Unknown [id number] 2.16.840.1.412746.3.579.2. 593 1975 Unknown [id number] 2.16.840.1.939092.3.579.2. 593 1975 Unknown [id number] 2.16.840.1.991129.3.579.2. 593 1975 Unknown [id number] 2.16.840.1.028975.3.579.2. 593 1975 Unknown [id number] 2.16.840.1.304403.3.579.2. 176 1975 Unknown [id number] 2.16.840.1.160838.3.579.2. 175 1975 Unknown [id number] 2.16.840.1.410353.3.579.2. 1286 1975 Unknown [id number] 2.16.840.1.554884.3.579.2. 1286 1958 Worker's Compensation [id number] Unknown [facility] [id number] Effective for all dates [phone] [address] [place] [address] [id number]. [id number] Plan of Treatment Date Care Activity Detail Author Start: 11-29-2025 DTaP,Tdap and Td Vaccines (2 - Td or Tdap) DTaP,Tdap and Td Vaccines (2 - Td or Tdap) [facility] Start: 09-25-2024 Tobacco Counseling Tobacco Counselin g [facility] Start: 07-15-2024 Adult BMI Screening Adult BMI Screen ing [facility] Start: 07-15-2024 Tobacco Screening Tobacco Screening [facility] Start: 05-25-2024 Depression Screening Depression Scre ening [facility] Start: 05-01-2024 Influenza vaccination Influenza Vacc ine [facility] Start: 03-25-2024 Adult BMI Follow Up Plan Adult BMI Follow Up Plan [facility] Start: 05-01-2023 Influenza vaccination Influenza Vacc ine [facility] Problems Active Problems Problem Classification Problem Date Documented Date Episodic/Chronic Allergic reactions (1 source) Urticaria; Translations: [Urticaria, unspecified] 09-28-2023 Episodic Anxiety disorders (12 sources) Chronic anxiety; Translations: [Anxiety disorder, unspecified] Onset: 07-01-2022 07-01-2022 Chronic Cardiac and circulatory congenital anomalies (12 sources) 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; Translations: [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] Onset: 09-28-2019 09-28-2019 Chronic Disorders of lipid metabolism (10 sources) Mixed hyperlipidemia; Translations: [Mixed hyperlipidemia] Onset: 08-28-2020 07-01-2022 Chronic Esophageal disorders (1 source) Gastroesophageal reflux disease without esophagitis; Translations: [Gastro-esophageal reflux disease without esophagitis] 09-28-2023 Chronic Essential hypertension (15 sources) Essential hypertension; Translations: [Essential (primary) hypertension] Onset: 11-16-2018 07-01-2022 Chronic Gastritis and duodenitis (6 sources) Gastritis; Translations: [Unspecified chronic gastritis without bleeding] Onset: 03-02-2019 03-02-2019 Chronic Mood disorders (7 sources) Depressive disorder; Translations: [Other specified depressive episodes] Onset: 10-02-2017 09-28-2023 Chronic Mood disorders (7 sources) Mood disorders; Translations: [Depression, unspecified] Onset: 07-01-2022 05-25-2023 Nonmalignant breast conditions (1 source) Unspecified lump in the left breast, upper outer quadrant; Translations: [Unspecified lump in the left breast, upper outer quadrant] Onset: 02-09-2024 Episodic Osteoarthritis (19 sources) Osteoarthritis; Translations: [Unspecified osteoarthritis, unspecified site] Onset: 07-03-2016 07-01-2022 Chronic Other male genital disorders (6 sources) Induratio penis plastica; Translations: [Induration penis plastica] Onset: 07-15-2023 07-15-2023 Chronic Other nutritional; endocrine; and metabolic disorders (1 source) Other obesity due to excess calories; Translations: [Other obesity due to excess calories] Onset: 02-09-2024 Chronic Other nutritional; endocrine; and metabolic disorders (1 source) Body mass index (BMI) 30.0-30.9, adult; Translations: [Body mass index (BMI) 30.0-30.9, adult] Onset: 02-09-2024 Chronic Residual codes; unclassified (12 sources) Obstructive sleep apnea syndrome; Translations: [Obstructive sleep apnea (adult) (pediatric)] Onset: 2016 10-16-2016 Chronic Residual codes; unclassified (1 source) Insomnia; Translations: [Insomnia, unspecified] 10-01-2023 Episodic Spondylosis; intervertebral disc disorders; other back problems (10 sources) Other cervical disc displacement at C4-C5 level; Translations: [Other cervical disc displacement at C5-C6 level] Onset: 06-26-2022 Chronic Past or Other Problems Problem Classification Problem Date Documented Da te Episodic/Chronic Cardiac dysrhythmias (6 sources) Palpitations; Translations: [Palpitations] Onset: 07-01-2022 07-01-2022 Episodic Esophageal disorders (6 sources) Esophagitis; Translations: [Esophagitis] Onset: 03-02-2019 03-02-2019 Episodic Gastritis and duodenitis (6 sources) Gastritis; Translations: [Gastritis, unspecified, without bleeding] Onset: 03-02-2019 07-01-2022 Episodic Gastrointestinal hemorrhage (12 sources) Rectal hemorrhage; Translations: [Hemorrhage of anus and rectum] Onset: 09-16-2019 09-16-2019 Episodic Genitourinary symptoms and ill-defined conditions (6 sources) Lower urinary tract symptoms; Translations: [Unspecified symptoms and signs involving the genitourinary system] Onset: 05-06-2023 07-15-2023 Episodic Inflammatory conditions of male genital organs (6 sources) Epididymitis; Translations: [Epididymitis] Onset: 07-18-2019 07-01-2022 Episodic Joint disorders and dislocations; trauma-related (10 sources) Other tear of medial meniscus, current injury, right knee, initial encounter; Translations: [Tear of medial meniscus of knee] Onset: 07-20-2018 Episodic Other and unspecified benign neoplasm (6 sources) Polyp of sigmoid colon; Translations: [Polyp of colon] Onset: 09-28-2019 09-28-2019 Episodic Other connective tissue disease (6 sources) Fibromyalgia; Translations: [Fibromyalgia] Onset: 08-12-2016 07-01-2022 Episodic Other connective tissue disease (6 sources) Impingement syndrome of shoulder region; Translations: [Impingement syndrome of unspecified shoulder] Onset: 08-07-2016 07-01-2022 Episodic Other connective tissue disease (6 sources) Hypertrophy of fat pad of knee; Translations: [Hypertrophy of (infrapatellar) fat pad] Onset: 07-20-2018 03-25-2023 Episodic Other connective tissue disease (3 sources) Neuralgia and neuritis, unspecified; Translations: [Neuralgia and neuritis, unspecified] Onset: 09-30-2023 Episodic Other gastrointestinal disorders (6 sources) Dysphagia; Translations: [Dysphagia, unspecified] Onset: 02-25-2019 02-25-2019 Episodic Other non-traumatic joint disorders (6 sources) Shoulder pain; Translations: [Pain in unspecified shoulder] Onset: 08-12-2016 07-01-2022 Episodic Other non-traumatic joint disorders (6 sources) Knee joint effusion; Translations: [Effusion, unspecified knee] Onset: 11-11-2017 03-25-2023 Episodic Other screening for suspected conditions (not mental disorders or infectious disease) (20 sources) Encounter for screening, unspecified; Translations: [Electrocardiogram abnormal] Onset: 02-23-2020 Episodic Spondylosis; intervertebral disc disorders; other back problems (6 sources) Cervical radiculopathy; Translations: [Radiculopathy, cervical region] Onset: 03-06-2017 03-25-2023 Episodic Sprains and strains (12 sources) Sprain of upper extremity; Translations: [Unspecified sprain of unspecified shoulder joint, initial encounter] Onset: 11-11-2017 03-25-2023 Episodic Superficial injury; contusion (6 sources) Contusion of knee; Translations: [Contusion of unspecified knee, initial encounter] Onset: 11-11-2017 03-25-2023 Episodic Unclassified (6 sources) Onset: 03-25-2023 03-25-2023 Procedures Date Procedure Procedure Detail Performing Clinician Start: 05-25-2023 Adult depression screening assessment Estela Espinoza BELTING INSPECTOR-BUILDING ESTIMATOR Work Phone: Results Test Name Value Interpretation Reference Range Facility COMPREHENSIVE METABOLIC PANE [facility] 02-09-2024 Albumin [Mass/Vol] 4.9 g/dL Normal 3.2-5.3 [facility] Comment on above: Performed By: #### Florencia CEBALLOS, 47069-0, 2088-08, 30144-3 #### [facility] ([id number]) [address], [address] [place] [address] ALP [Catalytic activity/Vol] 48 U/L Normal 39-130 [facility] Comment on above: Performed By: #### Florencia CEBALLOS, 65222-8, 2088-08, 86120-6 #### [facility] ([id number]) [address], [address] [place] [address] ALT [Catalytic activity/Vol] 21 U/L Normal 0-40 [facility] Comment on above: Performed By: #### Florencia CEBALLOS, 79288-9, 2088-08, 06108-6 #### [facility] ([id number]) [address], [address] [place] [address] Anion gap [Moles/Vol] 8 mmol/L Normal 5-15 [facility] Comment on above: Performed By: #### Florencia CEBALLOS, 15875-2, 2088-08, 93227-0 #### [facility] ([id number]) [address], [address] [place] [address] AST [Catalytic activity/Vol] 16 U/L Normal 0-41 [facility] Comment on above: Performed By: #### Florencia CEBALLOS, , 2088-08, 83231-4 #### [facility] ([id number]) [address], [address] [place] [address] Bilirubin [Mass/Vol] 0.6 mg/dL Normal 0.3-1.2 [facility] Comment on above: Performed By: #### Florencia CEBALLOS, , 2088-08, #### [facility] ([id number]) [address], [address] [place] [address] Calcium [Mass/Vol] 10.0 mg/dL Normal 8.5-10.5 [facility] Comment on above: Performed By: #### C TUCKER, , 2088-08, #### [facility] ([id number]) [address], [address] [place] [address] Chloride [Moles/Vol] 101 mmol/L Normal 98-109 [facility] Comment on above: Performed By: #### Florencia CEBALLOS, , 2088-08, #### [facility] ([id number]) [address], [address] [place] [address] CO2 [Moles/Vol] 28 mmol/L Normal 22-32 [facility] Comment on above: Performed By: #### Florencia CEBALLOS, , 2088-08, #### [facility] ([id number]) [address], [address] [place] [address] Creatinine [Mass/Vol] 1.22 mg/dL Normal 0.60-1.30 [facility] Comment on above: Result Comment: METH OD TRACEABLE TO IDMS STANDARD Performed By: #### C TUCKER, , 2088-08, 76380-4 #### [facility] ([id number]) [address], [address] [place] [address] GFR/1.73 sq M.predicted among non-blacks MDRD (S/P/Bld) [Vol rate/Area] 74 mL/min/{1.73_m2} Normal >59 [facility] Comment on above: Result Comment: Reported eGFR is based on the CKD-EPI 2020 equation that does not use a race coefficient. Performed By: #### Florencia CEBALLOS, , 2088-08, 34458-8 #### [facility] ([id number]) [address], [address] [place] [address] Glucose [Mass/Vol] 103 mg/dL High 65-99 [facility] Comment on above: Performed By: #### Florencia CEBALLOS, , 2088-08, 82154-7 #### [facility] ([id number]) [address], [address] [place] [address] Potassium [Moles/Vol] 4.6 mmol/L Normal 3.5-5.0 [facility] Comment on above: Performed By: #### Florencia CEBALLOS, , 2088-08, 92419-0 #### [facility] ([id number]) [address], [address] [place] [address] Protein [Mass/Vol] 7.3 g/dL Normal 6.0-8.0 [facility] Comment on above: Performed By: #### Florencia CEBALLOS, , 2088-08, 54172-3 #### [facility] ([id number]) [address], [address] [place] [address] Sodium [Moles/Vol] 137 mmol/L Normal 134-146 [facility] Comment on above: Performed By: #### Florencia CEBALLOS, , 2088-08, 70204-5 #### [facility] ([id number]) [address], [address] [place] [address] Urea nitrogen [Mass/Vol] 19 mg/dL Normal 5-23 [facility] Comment on above: Performed By: #### Florencia CEBALLOS, , 2088-08, 83926-3 #### [facility] ([id number]) [address], [address] [place] [address] DIRECT LDLon 02-09-2024 Cholesterol in LDL [Mass/Vol] 79 mg/dL Normal <130 [facility] Comment on above: Result Comment: LDL <100 mg/dL - Desirable LDL 130-159 mg/dL - Borderline High Risk LDL >160 mg/dL - High Risk Performed By: #### Florencia CEBALLOS, , 2088-08, 09678-1 #### [facility] ([id number]) [address], [address] [place] [address] Lipid 1996 panelon Cholesterol [Mass/Vol] 228 mg/dL High 150-200 [facility] Comment on above: Performed By: ###Catalino Don MP, , 2088-08, 62916-6 #### [facility] ([id number]) [address], [address] [place] [address] Cholesterol in HDL [Mass/Vol] 37 mg/dL Low >39 [facility] Comment on above: Result Comment: HDL <40 mg/dL - High Risk HDL > or = 40mg/dL- Desirable HDL >60 mg/dL - Negative Risk Performed By: #### Florencia CEBALLOS, , 2088-08, 54365-4 #### [facility] ([id number]) [address], [address] [place] [address] Cholesterol in VLDL [Mass/Vol] 115 mg/dL High 0-30 [facility] Comment on above: Performed By: #### C TUCKER, , 2088-08, 33216-6 #### [facility] ([id number]) [address], [address] [place] [address] CHOLESTEROL:HDL 6.2 High 1.0-5.0 [facility] Comment on above: Performed By: #### C TUCKER, 91027-1, 2088-08, 89299-2 #### [facility] ([id number]) [address], [address] [place] [address] LDL (CALC) RESULT NOT REPORTED DUE TO HIGH TRIGLYCERIDE Normal <130 [facility] Comment on above: Performed By: #### C TUCKER, , 2088-08, 73782-6 #### [facility] ([id number]) [address], [address] [place] [address] Triglyceride [Mass/Vol] 577 mg/dL High 27-150 [facility] Comment on above: Performed By: #### C TUCKER, , 2088-08, 52464-4 #### [facility] ([id number]) [address], [address] [place] [address] Vitamin D+Metabolites [Mass/ Vol]on 02-09-2024 VITAMIN D 25 HYD TOT 61.5 ng/mL Normal 30-100 [facility] Comment on above: Result Comment: Vitamin D status 25 [place] Vitamin D Deficiency <20 ng/mL Insufficiency 20-29 ng/mL Sufficiency 30-100 ng/mL Toxicity >100 ng/mL NOTE: A pediatric reference range has not been established by the technical proposal writer of this kit. The [place] [employer] recommends a Vitamin D level of = or >20ng/mL in infants and children. Performed By: #### C TUCKER, , 2088-08, 72799-0 #### [facility] ([id number]) [address] [facility] [address] [address], [address] [place] [address] MRI CERVICAL SPINE WO CONTRA Ladan 10-07-2023 MRI CERVICAL SPINE WO CONTRAST EXAMINATION: MRI OF THE CERVICAL SPINE WITHOUT CONTRAST 10/03/2023 3:03 pm TECHNIQUE: Multiplanar multisequence MRI of the cervical spine was performed without the administration of intravenous contrast. COMPARISON: None. HISTORY: ORDERING SYSTEM PROVIDED HISTORY: Radicular pain in right arm TECHNOLOGIST PROVIDED HISTORY: radicular neck pain, weakness in right arm Reason for Exam: radicular neck pain, weakness in right arm, Radicular pain in right arm - pt states hx cervical surgery x2 -2018,2019 no new injury- pain worsening right arm FINDINGS: BONES/ALIGNMENT: There is anterior and posterior fixation from C4-C6. The vertebral body heights are maintained. There is age-appropriate bone marrow signal. There is degenerative disc disease at the remaining levels with loss of disc signal. There is minimal degenerative anterolisthesis of C6 on C7. SPINAL CORD: No abnormal cord signal is seen. SOFT TISSUES: No paraspinal mass identified. C2-C3: There is a disc osteophyte complex with uncovertebral and facet hypertrophy. There is no canal stenosis. There is mild left and moderate to severe right foraminal narrowing. C3-C4: There is a disc osteophyte complex with uncovertebral and facet hypertrophy. There is no canal stenosis. There is severe bilateral foraminal narrowing. C4-C5: There is uncovertebral and facet hypertrophy. There is no canal stenosis or right foraminal narrowing. There is mhbv-jc-psgvoikk left foraminal narrowing. C5-C6: There is uncovertebral and facet hypertrophy. There is no canal stenosis or foraminal narrowing. C6-C7: There is a disc osteophyte complex with uncovertebral and facet hypertrophy. There is no canal stenosis or right foraminal narrowing. There is ydwn-sy-nvialbuq left foraminal narrowing. C7-T1: There is a disc osteophyte complex with uncovertebral and facet hypertrophy. There is no canal stenosis or right foraminal narrowing. There is severe left foraminal narrowing. IMPRESSION: Multilevel degenerative change with foraminal narrowing as described above. Hardware fixation anteriorly and posteriorly from C4-C6 without evidence for complication. Interpreted by: Edgar Ray MD Signed by: Edgar Ray MD 10/07/23 Final result Normal [facility] XR CSPINE MIN 4 VIEWSon 11-29 XR [...] mild degenerative disc disease. Electronically authenticated by: GRETA NAYLOR Date: 2022-12-16 15:11 Normal [facility] XR CSPINE OBL FLEX_EXTon XR CSPINE [...] changes C3-4 and C6-7. Electronically authenticated by: GRETA NAYLOR Date: 2022-10-27 15:03 Normal [facility] COMPREHENSIVE METABOLIC PANE Kulwinder 12-25-2021 Albumin [Mass/Vol] 4.9 g/dL Normal 3.6-5.1 [facility] Comment on above: Performed By: #### 1 7306, 7600, 84828, 5363 #### [facility] [place] [address] Pick Up Driver: Nicolas Araujo MD Albumin/Globulin [Mass ratio] 2.1 {ratio} Normal 1.0-2.5 [facility] Comment on above: Performed By: #### 1 7306, 7600, 48602, 5363 #### [facility] [place] [address] Pick Up Driver: Nicolas Araujo MD ALP [Catalytic activity/Vol] 49 U/L Normal 36-130 [facility] Comment on above: Performed By: #### 1 7306, 7600, 53991, 5363 #### [facility] [place] [address] Pick Up Driver: Nicolas Araujo MD ALT [Catalytic activity/Vol] 14 U/L Normal 9-46 [facility] Comment on above: Performed By: #### 1 7306, 7600, 23441, 5363 #### [facility] [place] [address] Pick Up Driver: Nicolas Araujo MD AST [Catalytic activity/Vol] 14 U/L Normal 10-40 [facility] Comment on above: Performed By: #### 1 7306, 7600, 46746, 5363 #### [facility] [place] [address] Pick Up Driver: Nicolas Araujo MD Bilirubin [Mass/Vol] 0.7 mg/dL Normal 0.2-1.2 [facility] Comment on above: Performed By: #### 1 7306, 7600, 78129, 5363 #### [facility] [place] [address] Pick Up Driver: Nicolas Araujo MD BUN/CREATININE RATIO NOT APPLICABLE Normal 6-22 [facility] Comment on above: Performed By: #### 1 7306, 7600, 92422, 5363 #### [facility] [place] [address] Pick Up Driver: Nicolas Araujo MD Calcium [Mass/Vol] 9.9 mg/dL Normal 8.6-10.3 [facility] Comment on above: Performed By: #### 1 7306, 7600, 24975, 5363 #### [facility] [place] [address] Pick Up Driver: Nicolas Araujo MD Chloride [Moles/Vol] 101 mmol/L Normal 98-110 [facility] Comment on above: Performed By: #### 1 7306, 7600, 72939, 5363 #### [facility] [place] [address] Pick Up Driver: Nicolas Araujo MD CO2 [Moles/Vol] 27 mmol/L Normal 20-32 [facility] Comment on above: Performed By: #### 1 7306, 7600, 52156, 5363 #### [facility] [place] [address] Pick Up Driver: Nicolas Araujo MD Creatinine [Mass/Vol] 1.16 mg/dL Normal 0.60-1.35 [facility] Comment on above: Performed By: #### 1 7306, 7600, 35933, 5363 #### [facility] [place] [address] Pick Up Driver: Nicolas Araujo MD eGFR NON-AFR. NAURUAN 76 mL/min/1.73m2 Normal > OR = 60 [facility] Comment on above: Performed By: #### 1 7306, 7600, 40335, 5363 #### [facility] [place] [address] Pick Up Driver: Nicolas Araujo MD GFR/1.73 sq M.predicted among blacks MDRD (S/P/Bld) [Vol rate/Area] 88 mL/min/{1.73_m2} Normal > OR = 60 [facility] Comment on above: Performed By: #### 1 7306, 7600, 73913, 5363 #### [facility] [place] [address] Pick Up Driver: Nicolas Araujo MD Globulin (S) [Mass/Vol] 2.3 g/dL Normal 1.9-3.7 [facility] Comment on above: Performed By: #### 1 7306, 7600, 72080, 5363 #### [facility] [place] [address] Pick Up Driver: Nicolas Araujo MD Glucose [Mass/Vol] 93 mg/dL Normal 65-99 [facility] Comment on above: Result Comment: Fasting reference interval Performed By: #### 1 7306, 7600, 90758, 5363 #### [facility] [place] [address] Pick Up Driver: Nicolas Araujo MD Potassium [Moles/Vol] 4.3 mmol/L Normal 3.5-5.3 [facility] Comment on above: Performed By: #### 1 7306, 7600, 29283, 5363 #### [facility] [place] [address] Pick Up Driver: Nicolas Araujo MD Protein [Mass/Vol] 7.2 g/dL Normal 6.1-8.1 [facility] Comment on above: Performed By: #### 1 7306, 7600, 18363, 5363 #### [facility] [place] [address] Pick Up Driver: Nicolas Araujo MD Sodium [Moles/Vol] 137 mmol/L Normal 135-146 [facility] Comment on above: Performed By: #### 1 7306, 7600, 12921, 5363 #### [facility] [place] [address] Pick Up Driver: Nicolas Araujo MD Urea nitrogen [Mass/Vol] 17 mg/dL Normal 7-25 [facility] Comment on above: Performed By: #### 1 7306, 7600, 36355, 5363 #### [facility] [address], [address] [place] [address] Pick Up Driver: Nicolas Araujo MD LIPID PANEL, [facility] 11-30 Cholesterol [Mass/Vol] 200 mg/dL High <200 [facility] Comment on above: Order Comment: FASTI NG:YES FASTING: YES Performed By: #### 1 7306, 7600, 86480, 5363 #### [facility] [address], [address] [place] [address] Pick Up Driver: Nicolas Araujo MD Cholesterol in HDL [Mass/Vol] 38 mg/dL Low > OR = 40 [facility] Comment on above: Order Comment: FASTI NG:YES FASTING: YES Performed By: #### 1 7306, 7600, 25114, 5363 #### [facility] [address], [address] [place] [address] Pick Up Driver: Nicolas Araujo MD Cholesterol in LDL [Mass/Vol] 110 mg/dL High [facility] Comment on above: Order Comment: FASTI NG:YES FASTING: YES Result Comment: Refe rence range: <100 Desirable range <100 mg/dL for primary prevention; <70 mg/dL for patients with CHD or diabetic patients with > or = 2 CHD risk factors. LDL-C is now calculated using the Jamison-Pedro Luis calculation, which is a validated novel method providing better accuracy than the Friedewald equation in the estimation of LDL-C. Jamison SS et al. AGUSTO. 2013;310(19): 7233-5221 (http://education.Get Satisfaction.Acceleforce/faq/MBQ427) Performed By: #### 1 7306, 7600, 73100, 5363 #### [facility] [address], [address] [place] [address] Pick Up Driver: Nicolas Araujo MD Cholesterol.total/C holesterol in HDL [Mass ratio] 5.3 {ratio} High <5.0 [facility] Comment on above: Order Comment: FASTI NG:YES FASTING: YES Performed By: #### 1 7306, 7600, 23075, 5363 #### [facility] [address], [address] [place] [address] Pick Up Driver: Nicolas Araujo MD NON HDL CHOLESTEROL 162 mg/dL (calc) High <130 [facility] Comment on above: Order Comment: FASTI NG:YES FASTING: YES Result Comment: For patients with diabetes plus 1 major ASCVD risk factor, treating to a non-HDL-C goal of <100 mg/dL (LDL-C of <70 mg/dL) is considered a therapeutic option. Performed By: #### 1 7306, 7600, 95743, 5363 #### [facility] [address], [address] [place] [address] Pick Up Driver: Nicolas Araujo MD Triglyceride [Mass/Vol] 364 mg/dL High <150 [facility] Comment on above: Order Comment: FASTI NG:YES FASTING: YES Result Comment: If a non-fasting specimen was collected, consider repeat triglyceride testing on a fasting specimen if clinically indicated. Eugenie et al. J. of Clin. Lipidol. 2015;9:129-169. Performed By: #### 1 7306, 7600, 56474, 5363 #### [facility] [address], [address] [place] [address] Pick Up Driver: Nicolas Araujo MD PSA, TOTALon 12-25-2021 PSA, [...] disease. Performed By: #### 1 7306, 7600, 63623, 5363 #### [facility] [address], [address] [place] [address] Pick Up Driver: Nicolas Araujo MD VITAMIN D,25-OH,TOTAL,IAon 0 12-25-2021 [...] D, (D2,D3), LC/MS/MS is recommended: order code 41561 (patients >2yrs). See Note 1 Note 1 For additional information, please refer to http://education.Get Satisfaction.Acceleforce/faq/ZJC163 (This link is being provided for informational/ educational purposes only.) Performed By: #### 1 7306, 7600, 38442, 5363 #### [facility] [address], [address] [place] [phone] Pick Up Driver: Nicolas Araujo MD CT CERVICAL SPINE WITHOUT CO NTRASTon 10-30-2021 CT CERVICAL SPINE WITHOUT CONTRAST [facility] Department of Radiology [address] [place] [address] ======== Patient Name: AVEL FUNES : 1975 Sex: M Age: Race: White Pt. Location: Patient Status: D Ordered Date: 09/18/2021 3:30:00 PM Completed Date: 10/30/2021 03:13 PM Requesting Provider: ALMA LEVINE Attending Provider: ALMA LEVINE Report Copy To: RODRICK RAMIRES Signs & Symptoms: M54.12 Radiculopathy, cervical region I10 History: [place] [phone] [facility] approval 09/19-10/03/21 Comments: Exam: CT CERVICAL [...] moderate degenerative changes at C3-4. Electronically signed: Greta Waters. Transcribed by: [email or web address], User Resident: Electronically Signed by: GRETA WATERS @ 11/02/2021 08:47 AM Normal [facility] CERVICAL SPINE 4 OR 5 [facility] 09-11-2021 CERVICAL SPINE 4 OR 5 VIEWS [facility] Department of Radiology [address] [place] [id number] ======== Patient Name: AVEL FUNES : [...] C2. Electronically signed: Avtar Barnes. Transcribed by: [email or web address], User Resident: Electronically Signed by: AVTAR BARNES @ 09/12/2021 02:45 PM Normal [facility] Comment on above: Order Comment: evalu ate CERVICAL SPINE 2 OR 3 [facility] 02-06-2021 CERVICAL SPINE 2 OR 3 [facility] Department of Radiology [address] [place] [id number] ======== Patient Name: AVEL FUNES : 1975 Sex: M Age: Race: White Pt. Location: Patient Status: D Ordered Date: 02/06/2021 2:00:00 PM Completed Date: 02/06/2021 02:21 PM Requesting Provider: ALMA LEVINE Attending Provider: ALMA LEVINE Report Copy To: RODRICK RAMIRES Signs & Symptoms: M50.30 Other cervical disc degeneration, unsp cervical region I10 History: Thu Comments: ap, lat Exam: CERVICAL SPINE 2 OR 3 VWS ======== EXAMINATION: CERVICAL SPINE 2 OR 3 [...] pathology. Electronically signed: Koby Franks. Transcribed by: [email or web address], User Resident: Electronically Signed by: KOBY FRANKS @ 02/07/2021 09:02 AM Normal [facility] Comment on above: Order Comment: ap, l at [facility] and Differentialon 04-06 Abs Baso 0.04 k/uL Normal <0.11 [facility] Abs [place] 0.72 k/uL Normal <0.87 [facility] Abs Neut 4.71 k/uL Normal 1.45-7.50 [facility] Absolute nRBC <0.01 [facility] WBC (Bld) 0.5 % Normal [facility] DTYPE Auto Diff Normal [facility] Eosinophils (Bld) [#/Vol] 0.11 10*3/uL Normal <0.46 [facility] Eosinophils/100 WBC (Bld) 1.3 % Normal [facility] Erythrocyte distribution width (RBC) [Ratio] 12.0 % Normal 11.5-15.0 [facility] Hematocrit (Bld) [Volume fraction] 43.4 % Normal 39.0-51.0 [facility] Hemoglobin (Bld) [Mass/Vol] 14.2 g/dL Normal 13.0-17.0 [facility] Lymphocytes (Bld) [#/Vol] 2.63 10*3/uL Normal 1.00-4.00 [facility] Lymphocytes/100 WBC (Bld) 32.0 % Normal [facility] MCH (RBC) [Entitic mass] 28.8 pG Normal 26.0-34.0 [facility] MCHC (RBC) [Mass/Vol] 32.7 g/dL Normal 30.5-36.0 [facility] MCV (RBC) [Entitic vol] 88.0 fL Normal 80.0-100.0 [facility] Monocytes/100 WBC (Bld) 8.8 % Normal [facility] Neutrophils/100 WBC (Bld) 57.4 % Normal [facility] NRBCs 0.0 /100 WBC Normal 0 [facility] Platelet mean volume (Bld) [Entitic vol] 11.0 fL Normal 9.0-12.7 [facility] Platelets (Bld) [#/Vol] 280 10*3/uL Normal 150-400 [facility] RBC (Bld) [#/Vol] 4.93 10*6/uL Normal 4.20-6.00 [facility] WBC (Bld) [#/Vol] 8.21 10*3/uL Normal 3.70-11.[address] [facility] [address] ABD/PEL W IVCONon 019 CT ABD/PEL W IVCON * * *Final Report* * * DATE OF EXAM: Apr 06 2019 7:38PM [facility] 0530 - CT ABD/PEL W IVCON / [...] of an acute intra-abdominal or pelvic process. Associate Professor Of Radiology: EDA Transcribe Date/Time: Apr 06 2019 7:43P Dictated by : ANALY YEPEZ MD This examination was interpreted and the report reviewed and electronically signed by: ANALY YEPEZ MD on Apr 06 2019 7:59PM EST [id number] Normal [facility] Comp Metabolic Panelon 04-06 Albumin [Mass/Vol] 4.8 g/dL Normal 3.9-4.9 [facility] ALP [Catalytic activity/Vol] 57 U/L Normal 38-113 [facility] ALT [Catalytic activity/Vol] Unable to assay. Specimen hemolyzed. Normal 10-54 [facility] Anion gap [Moles/Vol] 12 mmol/L Normal 9-18 [facility] AST [Catalytic activity/Vol] Unable to assay. Specimen hemolyzed. Normal 14-40 [facility] Bilirubin [Mass/Vol] 0.4 mg/dL Normal 0.2-1.3 [facility] Calcium [Mass/Vol] 9.8 mg/dL Normal 8.5-10.[address] [facility] ospital Chloride [Moles/Vol] 97 mmol/L Normal 97-105 [facility] CO2 [Moles/Vol] 28 mmol/L Normal 22-30 [facility] Creatinine [Mass/Vol] 1.03 mg/dL Normal 0.73-1.22 [facility] eGFR- Amer. >[address] [facility] ospital GFR/1.73 sq M predicted among non-blacks MDRD (S/P/Bld) [Vol rate/Area] mL/min/{1.73_m2} Normal [facility] Comment on above: Result Comment: eGFR (Estimated [...] GFR. Glucose [Mass/Vol] 95 mg/dL Normal 74-99 [facility] Comment on above: Result Comment: The [place] Diabetes Association (ADA) provides guidance for cutoff [...] Standards of Medical Care in Diabetes 2016, [place] [employer] Association. Diabetes Care. 2016.39(Suppl 1). Potassium [Moles/Vol] 4.4 mmol/L Normal 3.7-5.1 [facility] Comment on above: Result Comment: Spec imen is slightly hemolyzed. Results are unaffected by this level of hemolysis. The performance characteristics of this test were determined by [facility]. It has not been cleared or approved by the FDA. [facility] is regulated under CLIA as qualified to perform high complexity testing. This test is used for clinical purposes. It should not be regarded as investigational or for research. Protein [Mass/Vol] 7.5 g/dL Normal 6.3-8.0 [facility] Sodium [Moles/Vol] 137 mmol/L Normal 136-144 [facility] Urea nitrogen [Mass/Vol] 9 mg/dL Normal 9-24 [facility] ED NOTEon 04-06-2019 ED NOTE HNO ID: [id number] Author: Belgica MagañaRn) KELVIN Dukes Service: Nursing Author Type: Registered Nurse Type: ED Notes Filed: 04/06/2019 6:23 PM Note Text: Pt presents to ER for evaluation of rectal bleeding x 3 days. Pt states that he was diagnosed with diverticulitis yesterday without a CT scan and was not started on any medications. [facility] ED NOTE HNO ID: [id number] Author: Patricia Calero) KELVIN Astorga Service: ? Author Type: Registered Nurse Type: ED Notes Filed: 04/06/2019 8:46 PM Note Text: The P.A is at bedside. [facility] ED NOTE HNO ID: [id number] Author: Patricia Calero) KELVIN Astorga Service: ? Author Type: Registered [...] further questions and/or concerns at this time. [facility] ED PROV NOTEon 04-06-2019 ED PROV NOTE HNO ID: [id number] Author: Suyapa Vargas Service: ? Author Type: Physician Pressure Dispatcher Type: ED Provider Notes Filed: 04/06/2019 9:08 PM Note Text: ED Provider Note Patient Name: Avel Funes SERVICE DATE: 04/06/19 History Patient presents with: [...] Not on file ALLERGIES Allergen Reactions - Gerlach Other: See Comments - Ibuprofen GI Upset [...] at time of disposition: stable SIGNATURE: TRICIA Watters Pa-C 04/06/19 2108 [facility] PROGRESSon 04-06-2019 PROGRESS HNO ID: [id number] Author: Eileen Pinto) [place] Service: Radiology Author Type: Programming Engineer Type: Progress Notes Filed: 04/06/2019 7:39 PM [...] RT Laura April 06, 2019 7:39 PM [facility] Social History Date Type Detail Facility Start: 07-15-2023 Alcohol intake Current non-dr marble carver of alcohol (finding) [facility] Start: 10-11-2020 End: 07-15-2023 Alcohol intake [facility] Start: 10-11-2020 End: 07-15-2023 Tobacco use panel [facility] Start: 03-25-2023 Tobacco smoking stat us NHIS Never smoked tobacco [facility] Start: 03-25-2023 Tobacco use and exposure User of smokeless tobacco [facility] Start: 01-30-2023 Gender identity Identifies as male gender (finding) [facility] Start: 01-30-2023 Sexual orientation Heterosexual (fin ding) [facility] Start: 1975 Sex Assigned At Male P [facility] History of tobacco use Snuff User [facility] Adolescent depressio n screening assessment 0 [facility] Clinical Notes 04-03-2022 to 10-01-2023 JyotiROSEY Yates - 10/01/2023 2:43 PM EST Note Date & Type Note Facility 10-01-2023 History of Present illness Narrative The OARRS/MAPPS database was reviewed today and found to be appropriate. No indication of medication diversion, or non compliance. ROSEY Purdy 10/01/23 1443 documented in this encounter [facility] 12-04-2022 Note CONSULTATION CONSULTATION DATE: 12/04/2022 TO: [...] our patients to inform us about any ctwz-zah-bsohqrf medications or herbal remedies/nutritional supplements/alternative remedies. 2. [...] options with their primary care provider. [facility] 10-27-2022 Note PROCEDURE: XR KNEE R T 4V or > HISTORY: Tear of medial meniscus of knee ; chronic right knee pain COMPARISON: None. FINDINGS: BONES:Elevated patella. No fracture, dislocation, bone lesion. No significant joint space narrowing. SOFT TISSUES:No visible soft tissue swelling. EFFUSION:None visible. OTHER: Negative. IMPRESSION: 1. Patella juan. Otherwise unremarkable right knee. Electronically authenticated by: GRETA NAYLOR Date: 2022-10-27 15:00 [facility] 09-10-2022 Note CONSULTATION PROCEDURE DATE: 09/10/2022 WBC [...] three months or sooner if needed. 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 [facility] codes for diagnosis M50.221, M50.222. PLAN: We will increase his Percocet for the winter months to 5/325 q.i.d. We will preauthorize for bilateral cervical trigger point injections to mitigate his cervical spams. Upon approval, the patient will be called to the office to receive those injections. The patient does agree with the plan of care. [facility] 04-03-2022 Note CONSULTATION CONSULTATION DATE: 04/03/2022 HISTORY OF PRESENT ILLNESS: This is a 46-year-old male who is being seen at our pain clinic for chronic neck pain and is a [facility] case. Patient did sustain a neck injury in 2014 due to a lifting incident. He was last seen on 12/26/2021 which, at that time, we were attempting to preauthorize for cervical medial branch blocks and a subsequent rhizotomy. That was declined by [facility] regardless of the pathology and the [...] upper extremities. Blunted bilateral brachioradialis reflexes. IMPRESSION: [facility] codes M50.221, M50.222. PLAN: We will add diclofenac 75 mg b.i.d. to help control his inflammatory pain. Lyrica will be increased to 150 mg b.i.d. No changes in his Percocet dose at this time. Heat application was encouraged as well as adding magnesium and a multivitamin. At this time, we will attempt to medically manage him, pending any further [facility] approval to move forward with procedural interventions. Patient is in agreement with this plan. We will see him back in early May for follow up. [facility] Evaluation note Diagnosis Other specified depressive episodes Urticaria, unspecified documented in this encounter [facility] Diagnosis Gastro-esophageal reflux disease without esophagitis documented in this encounter [facility] Diagnosis Insomnia, unspecified documented in this encounter [facility]* Diagnosis Hyperlipidemia, unspecified documented in this encounter [facility] System[facility]ructions[facility] on filedocumented in this encounter [facility] on filedocumented in this encounter [facility] System[facility] on filedocumented in this encounter [facility] System[facility]ructionsNot on filedocumented in this encounter [facility] System Summary Purpose Family History No Family History [...] section and content) DATE CREATED AUTHOR 04/06/2019 [facility] DATE CREATED AUTHOR AUTHOR'S ORGANIZ ATION 11/09/2021 [facility] DATE CREATED AUTHOR AUTHOR'S ORGANIZ ATION 12/27/2021 [facility] DATE CREATED AUTHOR AUTHOR'S ORGANIZ ATION 01/14/2023 [facility] DATE CREATED AUTHOR AUTHOR'S ORGANIZ ATION 10/01/2023 [facility] DATE CREATED AUTHOR AUTHOR'S ORGANIZ ATION 01/18/2024 [facility] DATE CREATED AUTHOR AUTHOR'S ORGANIZ ATION 02/10/2024 [facility] DATE CREATED AUTHOR AUTHOR'S ORGANIZ ATION 02/10/2024 [facility] Reason for Visit (unrecogniz ed section and content) Reason Comments Med Refill Care Teams (unrecognized sec tion and content) 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 Relationship Specialty Start Date End Date AngeloarRodrick montelongoDO [address], [place] [address] PCP - General Family Medicine 10/16/16 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 Relationship Specialty Start Date End Date AngelocruzDavinRodrickcarlin Bryan DO [address] [place] [address] PCP - General Family Medicine 10/16/16 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 [facility] [facility]. provides no warranty or guarantee of the accuracy or completeness of information in this document.
--- NOTE | 2024-02-15 13:51 | P.CN_ITS ---
Consult Note: HPI Data of Consult Patient: known to practice within the last 3 years Consult date: 02/15/24 Requesting Physician: Karissa Ritchie MD Primary Care Provider: GOLDEN RICHARDSON Consult Narrative Reason for consult: neck pain, bilateral ue pain Narrative: 48yom who presents for assessment. longstanding neck and bilateral ue pain. imaging shows multilevel stenosis and spondylosis. continues in series of provider directed home exercises >6 weeks, without significant benefit. uses percocet and lyrica. denies adverse med side effects. cc:: CC: Karissa Ritchie MD Review of Systems ROS Status of ROS 10 or more systems reviewed and unremark able except as noted in history and below Meds Home Medications and Allergies Home Medications ?Medication ?Instructions ?Recorded ?Confirmed ?Type atorvastatin 10 mg tablet 10 mg PO DAILY 05/13/23 05/13/23 History cetirizine 10 mg tablet 10 mg PO DAILY PRN allergy symptoms 05/13/23 05/13/23 History cholecalciferol (vitamin D3) 25 25 mcg PO DAILY 05/13/23 05/13/23 History mcg (1,000 unit) capsule (Vitamin D3) diclofenac sodium 75 mg 75 mg PO BID 05/13/23 05/13/23 History tablet,delayed release docusate sodium 100 mg capsule 100 mg PO DAILY 05/13/23 05/13/23 History hydroxyzine HCl 10 mg tablet 10 mg PO DAILY 05/13/23 05/13/23 History lisinopril 20 1 tab PO DAILY 05/13/23 05/13/23 History mg-hydrochlorothiazide 12.5 mg tablet omeprazole 20 mg capsule,delayed 20 mg PO DAILY 05/13/23 05/13/23 History release oxycodone-acetaminophen 5 mg-325 1 tab PO QID 05/13/23 05/13/23 History mg tablet (Percocet) pregabalin 200 mg capsule (Lyrica) 200 mg PO BID 05/13/23 05/13/23 History tamsulosin 0.4 mg capsule (Flomax) 0.4 mg PO DAILY 05/13/23 05/13/23 History venlafaxine 150 mg 150 mg PO DAILY 05/13/23 05/13/23 History capsule,extended release 24 hr (Effexor XR) oxycodone-acetaminophen 5 mg-325 1 tab PO QID PRN pain #120 tabs 05/26/23 Rx mg tablet (Percocet) oxycodone-acetaminophen 5 mg-325 1 tab PO QID PRN pain #120 tabs 05/27/23 Rx mg tablet (Percocet) oxycodone-acetaminophen 5 mg-325 1 tab PO QID PRN pain #120 tabs 06/26/23 Rx mg tablet (Percocet) oxycodone-acetaminophen 5 mg-325 1 tab PO QID PRN pain #120 tabs 07/27/23 Rx mg tablet (Percocet) oxycodone-acetaminophen 5 mg-325 1 tab PO QID PRN pain #120 tabs 08/26/23 Rx mg tablet (Percocet) pregabalin 100 mg capsule (Lyrica) 100 mg PO BID #120 caps 08/26/23 Rx oxycodone-acetaminophen 5 mg-325 1 tab PO QID PRN pain #130 tabs 09/25/23 Rx mg tablet (Percocet) oxycodone-acetaminophen 5 mg-325 1 tab PO QID PRN pain #130 tabs 10/23/23 Rx mg tablet (Percocet) oxycodone-acetaminophen 5 mg-325 1 tab PO QID PRN pain #130 tabs 11/24/23 Rx mg tablet (Percocet) tizanidine 4 mg capsule 4 mg PO BID PRN muscle spasticity 12/17/23 12/17/23 History oxycodone-acetaminophen 5 mg-325 1 tab PO QID PRN pain #130 tabs 12/23/23 Rx mg tablet (Endocet) oxycodone-acetaminophen 5 mg-325 1 tab PO QID PRN pain #130 tabs 01/26/24 Rx mg tablet (Percocet) Allergies Allergy/AdvReac Type Severity Reaction Status Date / Time corn Allergy Vomiting Verified 05/13/23 15:44 Penicillins Allergy Hives Verified 05/13/23 15:44 ibuprofen AdvReac Nausea Verified 05/13/23 15:44 prednisone AdvReac Palpitation Verified 05/13/23 15:44 s Exam Narrative Exam Narrative: Psych-alert and oriented x 3.? Attentive and appropriate, constitutionally normal, displays normal mood and affect per situation.? There are no obvious deficits in memory, reasoning, or intellect.? Skin-no obvious rashes, bruising, or erythema noted to the patient's area of pain.? Extremities-upper extremities are warm with minimal edema and palpable pulses. Cervical- tenderness to palpation noted in the cervical spine and paraspinal musculature.? Pain is elicited with flexion, extension, and lateral rotation of the cervical spine.? Range of motion is diminished due to pain. Facet loading maneuvers are negative.? Strength-unremarkable and within normal limits Sensory-no notable sensory deficits in the bilateral upper extremities to touch or pinprick with the exception to decreased sensation to the bilateral C4, 5 dermatomal distribution.? Coordination remains intact.? Gait remains non-antalgic. Assessment and Plan Assessment and Plan (1) Displacement of intervertebral disc at C5-C6 level: (2) Displacement of intervertebral disc at C4-C5 level: Plan 48yom who presents for assessment. continues to have pain in neck and bilateral ue. imaging reviewed, as noted. failed conservative measures, as noted. given symptoms and imaging findings, prudent to attempt bilateral c4-5 tfesi under fluoroscopic guidance. he is in agreement. meds reviewed, no changes. also discussed that given persistent pain and surgical history, may be candidate for cervical scs at some point. provided information about this. follow up after procedure.
== END 2024-02-15 13:15 | disposition home or self-care (01) ==
LOC: PM 13:14
PROVIDERS: PCP Family Medicine; Visit Provider Anesthesiology
DX: M50.221 Other cervical disc displacement at C4-C5 level (principal); M50.222 Other cervical disc displacement at C5-C6 level
CPT/HCPCS: G0463

== ENCOUNTER 2024-05-23 08:52 | Day surgery (SDC) | payer SELFPAY ==
--- OUTSIDE RECORDS SUMMARY | 2024-05-23 09:14 | XMS_ITS | CCD ---
Author Organization [facility] Care Team Providers Care 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 Name Role Phone RODRICK RAMIRES Primary Care Unavailable RODRICK RAMIRES Referring Unavailable ALMA LEVINE Attending Unavailable ALMA LEVINE Admitting Unavailable MISC, DR KELLEY Admitting Unavailable Greta Naylor Consulting Unavailable FURLONG, DR RODRICK Bryan Primary Care Unavailable MISC, DR KELLEY Attending Unavailable SCHLISERENAER, DR JEFFERS Consulting Unavailable PECK ., DR [...] FREEMAN ., ISAIAH Consulting Unavailable FURARNG, DR RODRICK Bryan Primary Care Unavailable LAKSHMIPATHY ., NARHAILEY Consulting Sherie vailable PECK ., DR SHAN Ramachandran Attending Unavailable FREEMAN ., ISAIAH Consulting Unavailable DINA, DR ESTELA Heredia Primary Care Unavailable PECK ., DR SHAN Ramachandran Admitting Unavailable LAKSHMIPATHY ., NARENDLEEATH Attending Sherie vailable LAKSHMIPATHY ., NARENDTYLER Admitting Sherie vailable FURDR RODRICK SRINIVASAN Primary Care Unavailable LAKSHMIPATHY ., NARENDRANATH Consulting Sherie vailable LAKSHMIPATHY ., NARENDLEEATH Attending Sherie vailable LAKSHMIPATHY ., NARENDRANATH Admitting Sherie vailable FURLONG, DR RODRICK Bryan Primary Care Unavailable LAKSHMIPATHY ., NARENDRANATH Attending Sherie vailable LAKSHMIPATHY ., NARENDRANATH Admitting Sherie vailable Greta Naylor Consulting Unavailable DEBRA, DR RODRICK Bryan Primary Care Unavailable LAKSHMIPATHY ., PETRENDRANATH Consulting Sherie vailable MARIAM, DR JEFFERS Attending Unavailable MARIAM, DR JEFFERS Admitting Unavailable Greta Naylor Consulting Unavailable FURLONG, DR RODRICK Bryan Primary Care Unavailable MARIAM, DR JEFFERS Consulting Unavailable Furlong DORodrick Primary Care Provider [phone] DEBRA, RODRICK Bryan Primary Care Unavailable MARY MONZON Referring Unavailable FURLONGRODRICK Attending Unavailable ARLETTENGRODRICK Referring Unavailable FURLONG, RODRICK Bryan Primary Care Unavailable FURLONG, RODRICK Byran Referring Unavailable FURLONG, RODRICK Bryan Primary Care Unavailable Karissa Ritchie MD Attending Unavailable MARY MONZON Attending Unavailable MARY MONZON Referring Unavailable FAREEDLONGRODRICK Primary Care Unavailable AURY BECERRA Referring Unavailable FURLONGRODRICK Primary Care Unavailable FURLONG, RODRICK Bryan Referring Unavailable FURLONG, RODRICK Bryan Primary Care Unavailable FURLONG, RODRICK Bryan Referring Unavailable FURLONG, RODRICK Bryan Primary Care Unavailable FURLONGRODRICK Referring Unavailable FURLONG, RODRICK Bryan Primary Care Unavailable FURLONGRODRICK Referring Unavailable FURLONG, RODRICK Bryan Primary Care Unavailable DELTA REN Attending Unavailable DELTA REN Referring Unavailable FAREEDLONG, RODRICK Bryan Primary Care Unavailable DELTA REN Referring Unavailable FAREEDLONGRODRICK Primary Care Unavailable SUZANNE DIOP Referring Unavailable FURLONG, RODRICK Bryan Primary Care Unavailable Allergies Allergy Classification Reported Allergen(s) Allergy Type Date of Onset Reaction(s) Facility corn extract (1 source) corn extract; Translations: [CORN] Drug Allergy [facility] Corticosteroids (1 source) predniSONE; Translations: [PREDNISONE] Drug Allergy [facility] NSAIDs (1 source) Ibuprofen; Translations: [IBUPROFEN] Drug Allergy 7 [facility] Penicillins (antibiotic) (1 source) Penicillins; Translations: [PENICILLINS] Drug Allergy 7 [facility] (9 sources) corn extract; Translations: [CORN] Drug Allergy 6 Diarrhea [facility] Repository (10 sources) Ibuprofen; Translations: [IBUPROFEN] Drug Allergy 6 GI Disturbance [facility] Repository (4 sources) Penicillins; Translations: [PENICILLINS] Drug allergy (disorder) 5 [facility] Repository (11 sources) predniSONE; Translations: [PREDNISONE] Drug Allergy 6 [facility] Repository (1 source) [place] Containing Products Drug allergy (disorder) [facility] Repository (6 sources) Penicillins Propensity to adverse reactions to drug 7 [facility] Medications Current Medications Medication Drug Class(es) Dates Sig (Normalized) Sig (Original) acetaminophen 325 mg / oxyCODONE hydrochloride 5 mg oral tablet (6 sources) Opioid Agonist take 1 tablet by mouth every four hours as needed for pain oxyCODONE-acetamin ophen (PERCOCET) 5-325 mg per tablet Take 1 tablet by mouth every 4 (four) hours as needed for pain. 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] Onset: 09-28-2019 09-28-2019 Chronic Diabetes mellitus without complication (1 source) Hyperglycemia, unspecified; Translations: [Hyperglycemia, unspecified] Onset: 04-19-2024 Episodic Disorders of lipid metabolism (11 sources) Mixed hyperlipidemia; Translations: [Mixed hyperlipidemia] Onset: 08-28-2020 07-01-2022 Chronic Esophageal disorders (1 source) Gastroesophageal reflux disease without esophagitis; Translations: [Gastro-esophageal reflux disease without esophagitis] 09-28-2023 Chronic Essential hypertension (16 sources) Essential hypertension; Translations: [Essential (primary) hypertension] Onset: 11-16-2018 07-01-2022 Chronic Gastritis and duodenitis (6 sources) Gastritis; Translations: [Unspecified chronic gastritis without bleeding] Onset: 03-02-2019 03-02-2019 Chronic Genitourinary symptoms and ill-defined conditions (7 sources) Lower urinary tract symptoms; Translations: [Unspecified symptoms and signs involving the genitourinary system] Onset: 05-06-2023 07-15-2023 Episodic Mood disorders (7 sources) Depressive disorder; Translations: [Other specified depressive episodes] Onset: 10-02-2017 09-28-2023 Chronic Mood disorders (7 sources) Mood disorders; Translations: [Depression, unspecified] Onset: 07-01-2022 05-25-2023 Nonmalignant breast conditions (2 sources) Unspecified lump in the left breast, upper outer quadrant; Translations: [Unspecified lump in the left breast, upper outer quadrant] Onset: 02-09-2024 Episodic Osteoarthritis (19 sources) Osteoarthritis; Translations: [Unspecified osteoarthritis, unspecified site] Onset: 07-03-2016 07-01-2022 Chronic Other male genital disorders (6 sources) Induratio penis plastica; Translations: [Induration penis plastica] Onset: 07-15-2023 07-15-2023 Chronic Other nutritional; endocrine; and metabolic disorders (2 sources) Other obesity due to excess calories; Translations: [Other obesity due to excess calories] Onset: 02-09-2024 Chronic Other nutritional; endocrine; and metabolic disorders (2 sources) Body mass index (BMI) 30.0-30.9, adult; Translations: [Body mass index (BMI) 30.0-30.9, adult] Onset: 02-09-2024 Chronic Residual codes; unclassified (12 sources) Obstructive sleep apnea syndrome; Translations: [Obstructive sleep apnea (adult) (pediatric)] Onset: 2016 10-16-2016 Chronic Residual codes; unclassified (1 source) Obstructive sleep apnea (adult) (pediatric); Translations: [Obstructive sleep apnea (adult) (pediatric)] Onset: 10-16-2016 Chronic Residual codes; unclassified (1 source) Insomnia; Translations: [Insomnia, unspecified] 10-01-2023 Episodic Residual codes; unclassified (1 source) Flushing; Translations: [Flushing] Onset: 04-19-2024 Episodic Spondylosis; intervertebral disc disorders; other back problems (11 sources) Other cervical disc displacement at C4-C5 [...] anus and rectum] Onset: 09-16-2019 09-16-2019 Episodic Inflammatory conditions of male genital organs [...] [Dysphagia, unspecified] Onset: 02-25-2019 02-25-2019 Episodic Other injuries and conditions due to external causes (1 source) Personal history of (healed) traumatic fracture; Translations: [Personal history of (healed) traumatic fracture] Onset: 08-17-2023 Episodic Other non-traumatic joint disorders (6 sources) [...] Episodic Unclassified (6 sources) Onset: 03-25-2023 03-25-2023 Results Test Name Value Interpretation Reference Range Facility URINALYSISon 05-18-2024 Bilirubin Ql (U) Negative Normal NEG [facility] Comment on above: Performed By: #### U A #### [facility] ([id number]) [address], [address] [place] [address] BLOOD/HGB Negative Normal NEG [facility] Comment on above: Performed By: #### U A #### [facility] ([id number]) [address], [address] [place] [address] Color (U) YELLOW Normal YELLOW [facility] Comment on above: Performed By: #### U A #### [facility] ([id number]) [address], [address] [place] [address] Glucose Ql (U) Negative Normal NEG [facility] Comment on above: Performed By: #### U A #### [facility] ([id number]) [address], [address] [place] [address] Ketones Ql (U) Negative Normal NEG [facility] Comment on above: Performed By: #### U A #### [facility] ([id number]) [address], [address] [place] [address] Leukocyte esterase Test strip Ql (U) Negative Normal NEG [facility] Comment on above: Performed By: #### U A #### [facility] ([id number]) [address], [address] [place] [address] Nitrite Ql (U) Negative Normal NEG [facility] Comment on above: Performed By: #### U A #### [facility] ([id number]) [address] [facility] [place] [address] pH (U) 6.5 [pH] Normal 5.0-8.5 [facility] Comment on above: Performed By: #### U A #### [facility] ([id number]) [address] [facility] [facility] [address] [place] [address] Protein Ql (U) Negative Normal NEG [facility] Comment on above: Performed By: #### U A #### [facility] ([id number]) [facility] [facility] [address] [place] [address] Specific gravity (U) [Rel density] 1.009 Normal 1.003-1.035 [facility] Comment on above: Performed By: #### U A #### [facility] ([id number]) [address] [address] [place] [address] TURBIDITY CLEAR Normal CLEAR [facility] Comment on above: Performed By: #### U A #### [facility] ([id number]) [address] [facility] [facility] [place] [address] Urobilinogen (U) [Mass/Vol] mg/dL Normal <1.1 [facility] Comment on above: Performed By: #### U A #### [facility] ([id number]) [address] [address] [place] [address] URINE CULTUREon 05-18-2024 Bacteria identified Cx Nom (U) SPECIMEN NOTES URINE RECEIVED WITHOUT PRESERVATIVE CULTURE RESULTS NO GROWTH AT <1000 CFU/mL Normal [facility] Comment on above: Performed By: #### 6 30-4 #### [facility] ([id number]) [address] [facility] [place] [address] [facility] ([id number]) [address] [place] [address] BASIC METABOLIC PANLon 05-17 Anion gap [Moles/Vol] 10 mmol/L Normal 5-15 [facility] Comment on above: Performed By: #### B MP #### [facility] ([id number]) [address], [address] [place] [address] Calcium [Mass/Vol] 10.0 mg/dL Normal 8.5-10.5 [facility] Comment on above: Performed By: #### B MP #### [facility] ([id number]) [address] [address] [place] [address] Chloride [Moles/Vol] 100 mmol/L Normal 98-109 [facility] Comment on above: Performed By: #### B MP #### [facility] ([id number]) [address], [address] [place] [address] CO2 [Moles/Vol] 27 mmol/L Normal 22-32 [facility] Comment on above: Performed By: #### B MP #### [facility] ([id number]) [address] [address] [place] [address] Creatinine [Mass/Vol] 1.10 mg/dL Normal 0.60-1.30 [facility] Comment on above: Result Comment: METH OD TRACEABLE TO IDMS STANDARD Performed By: #### B MP #### [facility] ([id number]) [address] [place] [address] GFR/1.73 sq M.predicted among non-blacks MDRD (S/P/Bld) [Vol rate/Area] 83 mL/min/{1.73_m2} Normal >59 [facility] Comment on above: Result Comment: Reported eGFR is based on the CKD-EPI 2020 equation that does not use a race coefficient. Performed By: #### B MP #### [facility] ([id number]) [address], [address] [place] [address] Glucose [Mass/Vol] 98 mg/dL Normal 65-99 [facility] Comment on above: Performed By: #### B MP #### [facility] ([id number]) [address] [address] [place] [address] Potassium [Moles/Vol] 3.8 mmol/L Normal 3.5-5.0 [facility] Comment on above: Performed By: #### B MP #### [facility] ([id number]) [address], [address] [place] [address] Sodium [Moles/Vol] 137 mmol/L Normal 134-146 [facility] Comment on above: Performed By: #### B MP #### [facility] ([id number]) [address], [address] [place] [address] Urea nitrogen [Mass/Vol] 16 mg/dL Normal 5-23 [facility] Comment on above: Performed By: #### B MP #### [facility] ([id number]) [address], [address] [place] [address] HGB A1C (GLYCO-HGB)on 2023 Glucose [Mass/Vol] 111 mg/dL Normal [facility] Comment on above: Performed By: #### H A1C, 3016-3, 2986-8 #### [facility] ([id number]) [address], [address] [place] [address] HbA1c (Bld) [Mass fraction] 5.5 % Normal 4.4-5.6 [facility] Comment on above: Result Comment: NOTE ADA Guidelines Result HgbA1c Normal : less than 5.7 % Prediabetes : 5.7 % to 6.4 % Diabetes : > 6.4 % Use with caution in patients with abnormal hemoglobin variants as the half-life of red blood cells and in vivo glycation rates are affected. Performed By: #### H A1C, 3016-3, 2986-8 #### [facility] ([id number]) [address] [place] [address] TSH Qnon 04-19-2024 TSH 1.75 uIU/mL Normal 0.49-4.67 [facility] Comment on above: Performed By: #### H A1C, 3016-3, 2986-8 #### [facility] ([id number]) [address] [place] [address] Testosterone [Mass/Vol]on TESTOSTERONE 2.39 ng/mL Normal 1.68-7.46 [facility] Comment on above: Performed By: #### H A1C, 3016-3, 2986-8 #### [facility] ([id number]) [address] [place] [address] MAMM DIAGNOSTIC BILATERAL W CADon 03-08-2024 MAMM DIAGNOSTIC BILATERAL W CAD MAMM DIAGNOSTIC BILATERAL W CAD EXAM: MAMM DIAGNOSTIC BILATERAL W CAD, 03/08/2024 12:27 PM CLINICAL INDICATIONS: Mass of upper outer quadrant of left breast, palpable finding with some tenderness, reported to be decreasing the patient. COMPARISON: None TECHNIQUE: Bilateral digital tomosynthesis MLO and CC views of the breasts were obtained, with creation of synthetic 2D views. Computer aided detection was utilized. Focused left breast ultrasound of the area of the palpable finding at approximately 2:00 also obtained FINDINGS: The breasts are almost entirely fatty. On the mammograms and ovoid, at least partially circumscribed nodules identified at the site of the reported decreasing palpable abnormality. Margins are at least partially circumscribed. Located between 5.5 and 6 cm from the nipple. Correlating with ultrasound a corresponding benign-appearing intramammary lymph node is displayed with a fatty hilum and entering vessel There are no other suspicious masses, calcifications, or areas of architectural distortions. IMPRESSION: Palpable abnormality corresponds to a small benign-appearing intramammary lymph node on ultrasound. No mammographic evidence of malignancy. BI-RADS: BI-RADS 2 - Benign Recommendation: Follow up with referring physician Patient was given the results before leaving the department. Finalized by Parth Camacho MD on 03/08/2024 2:02 PM 2 a F/U REFER DR Mccord [facility] US BREAST LT LIMITEDon 03-08 US BREAST LT LIMITED US BREAST LT LIMITED EXAM: US BREAST LT LIMITED, 03/08/2024 12:50 PM CLINICAL INDICATIONS: Mass of upper outer quadrant of left breast, palpable finding with some tenderness, reported to be decreasing the patient. COMPARISON: None TECHNIQUE: Bilateral digital tomosynthesis MLO and CC views of the breasts were obtained, with creation of synthetic 2D views. Computer aided detection was utilized. Focused left breast ultrasound of the area of the palpable finding at approximately 2:00 also obtained FINDINGS: On the mammograms and ovoid, at least partially circumscribed nodules identified at the site of the reported decreasing palpable abnormality. Margins are at least partially circumscribed. Located between 5.5 and 6 cm from the nipple. Correlating with ultrasound a corresponding benign-appearing intramammary lymph node is displayed with a fatty hilum and entering vessel There are no other suspicious masses, calcifications, or areas of architectural distortions. IMPRESSION: Palpable abnormality corresponds to a small benign-appearing intramammary lymph node on ultrasound. No mammographic evidence of malignancy. BI-RADS: BI-RADS 2 - Benign Recommendation: Follow up with referring physician Patient was given the results before leaving the department. Finalized by Parth Camacho MD on 03/08/2024 2:02 PM 2 F/U REFER DR Mccord [facility] COMPREHENSIVE METABOLIC PANE Kulwinder 02-09-2024 Albumin [Mass/Vol] 4.9 g/dL Normal 3.2-5.3 [facility] Comment on above: Performed By: #### C TUCKER, , 2088-08, 39485-1 #### [facility] ([id number]) [address] [place] [address] ALP [Catalytic activity/Vol] 48 U/L Normal 39-130 [facility] Comment on above: Performed By: #### C TUCKER, , 2088-08, #### [facility] ([id number]) [address] [place] [address] ALT [Catalytic activity/Vol] 21 U/L Normal 0-40 [facility] Comment on above: Performed By: #### C TUCKER, , 2088-08, 50728-0 #### [facility] ([id number]) [address] [place] [address] Anion gap [Moles/Vol] 8 mmol/L Normal 5-15 [facility] Comment on above: Performed By: #### C TUCKER, , 2088-08, 07596-4 #### [facility] ([id number]) [address] [place] [address] AST [Catalytic activity/Vol] 16 U/L Normal 0-41 [facility] Comment on above: Performed By: #### Florencia CEBALLOS, , 2088-08, 30688-4 #### [facility] ([id number]) [address] [place] [address] Bilirubin [Mass/Vol] 0.6 mg/dL Normal 0.3-1.2 [facility] Comment on above: Performed By: #### C TUCKER, , 2088-08, 88558-4 #### [facility] ([id number]) [address], [address] [place] [address] Calcium [Mass/Vol] 10.0 mg/dL Normal 8.5-10.5 [facility] Comment on above: Performed By: #### C TUCKER, , 2088-08, 75563-1 #### [facility] ([id number]) [address], [address] [place] [address] Chloride [Moles/Vol] 101 mmol/L Normal 98-109 [facility] Comment on above: Performed By: #### Florencia CEBALLOS, , 2088-08, 22265-3 #### [facility] ([id number]) [address] [place] [address] CO2 [Moles/Vol] 28 mmol/L Normal 22-32 [facility] Comment on above: Performed By: #### Florencia CEBALLOS, , 2088-08, 68143-3 #### [facility] ([id number]) [address] [place] [address] Creatinine [Mass/Vol] 1.22 mg/dL Normal 0.60-1.30 [facility] Comment on above: Result Comment: METH OD TRACEABLE TO IDMS STANDARD Performed By: #### Florencia CEBALLOS, , 2088-08, 86580-6 #### [facility] ([id number]) [address] [place] [address] GFR/1.73 sq M.predicted among non-blacks MDRD (S/P/Bld) [Vol rate/Area] 74 mL/min/{1.73_m2} Normal >59 [facility] Comment on above: Result Comment: Reported eGFR is based on the CKD-EPI 2020 equation that does not use a race coefficient. Performed By: #### Florencia CEBALLOS, , 2088-08, 03620-4 #### [facility] ([id number]) [address] [place] [address] Glucose [Mass/Vol] 103 mg/dL High 65-99 [facility] Comment on above: Performed By: #### Florencia CEBALLOS, , 2088-08, 72246-8 #### [facility] ([id number]) [address] [place] [address] Potassium [Moles/Vol] 4.6 mmol/L Normal 3.5-5.0 [facility] Comment on above: Performed By: #### Florencia CEBALLOS, , 2088-08, 41643-1 #### [facility] ([id number]) [address] [place] [address] Protein [Mass/Vol] 7.3 g/dL Normal 6.0-8.0 [facility] Comment on above: Performed By: #### Florencia CEBALLOS, , 2088-08, 58709-5 #### [facility] ([id number]) [address] [place] [address] Sodium [Moles/Vol] 137 mmol/L Normal 134-146 [facility] Comment on above: Performed By: #### Florencia CEBALLOS, , 2088-08, 63082-8 #### [facility] ([id number]) [address] [place] [address] Urea nitrogen [Mass/Vol] 19 mg/dL Normal 5-23 [facility] Comment on above: Performed By: #### Florencia CEBALLOS, , 2088-08, 31980-0 #### [facility] ([id number]) [address] [place] [address] DIRECT LDLon 02-09-2024 Cholesterol in LDL [Mass/Vol] 79 mg/dL Normal <130 [facility] Comment on above: Result Comment: LDL <100 mg/dL - Desirable LDL 130-159 mg/dL - Borderline High Risk LDL >160 mg/dL - High Risk Performed By: #### Florencia CEBALLOS, , 2088-08, 45663-3 #### [facility] ([id number]) [address] [place] [address] Lipid 1996 panelon 4 Cholesterol [Mass/Vol] 228 mg/dL High 150-200 [facility] Comment on above: Performed By: #### Florencia CEBALLOS, , 2088-08, 70940-4 #### [facility] ([id number]) [address] [place] [address] Cholesterol in HDL [Mass/Vol] 37 mg/dL Low >39 [facility] Comment on above: Result Comment: HDL <40 mg/dL - High Risk HDL > or = 40mg/dL- Desirable HDL >60 mg/dL - Negative Risk Performed By: #### Florencia CEBALLOS, , 2088-08, 82797-8 #### [facility] ([id number]) [address] [place] [address] Cholesterol in VLDL [Mass/Vol] 115 mg/dL High 0-30 [facility] Comment on above: Performed By: #### Florencia CEBALLOS, , 2088-08, 19726-3 #### [facility] ([id number]) [address] [place] [address] CHOLESTEROL:HDL 6.2 High 1.0-5.0 [facility] Comment on above: Performed By: #### Florencia CEBALLOS, , 2088-08, 98896-8 #### [facility] ([id number]) [address] [place] [address] LDL (CALC) RESULT NOT REPORTED DUE TO HIGH TRIGLYCERIDE Normal <130 [facility] Comment on above: Performed By: #### Florencia CEBALLOS, 20493-7, 2088-08, 58857-2 #### [facility] ([id number]) [address] [place] [address] Triglyceride [Mass/Vol] 577 mg/dL High 27-150 [facility] Comment on above: Performed By: #### C TUCKER, 20517-0, 2088-08, 81284-0 #### [facility] ([id number]) [address] [place] [address] Vitamin D+Metabolites [Mass/ Vol]on 02-09-2024 VITAMIN D 25 HYD TOT 61.5 ng/mL Normal 30-100 [facility] Comment on above: Result Comment: Vitamin D status 25 [place] Vitamin D Deficiency <20 ng/mL Insufficiency 20-29 ng/mL Sufficiency 30-100 ng/mL Toxicity >100 ng/mL NOTE: A pediatric reference range has not been established by the general maintenance helper of this kit. The [place] [employer] recommends a Vitamin D level of = or >20ng/mL in infants and children. Performed By: #### Florencia CEBALLOS, 33488-0, 2088-08, 37566-2 #### [facility] ([id number]) [address], [address] [place] [address] MRI CERVICAL SPINE WO CONTRA STon 10-07-2023 MRI CERVICAL SPINE WO CONTRAST EXAMINATION: [...] - pt states hx cervical surgery x2 -2019,2020 no new injury- pain worsening right arm [...] stenosis or right foraminal narrowing. There is cqeu-ao-[id number] left foraminal narrowing. C5-C6: There is uncovertebral and facet hypertrophy. There is no canal stenosis or foraminal narrowing. C6-C7: There is a disc osteophyte complex with uncovertebral and facet hypertrophy. There is no canal stenosis or right foraminal narrowing. There is wjvn-ls-gadbjjay left foraminal narrowing. C7-T1: There is a [...] Edgar Ray MD 10/07/23 Final result Normal [facility] XR SPINE CERV 6 OR MORE VIEW Son 08-17-2023 XR SPINE CERV 6 OR MORE VIEWS XR SPINE CERV 6 OR MORE VIEWS HISTORY: Fracture TECHNIQUE: Frontal lateral and odontoid views of the cervical spine were obtained. Lateral flexion and extension and bilateral oblique views were also obtained.. COMPARISON: None. FINDINGS: There is anterior and posterior fusion of C4-C6. No hardware abnormalities are seen. There is multilevel endplate osteophyte formation. There is a slight anterolisthesis at C6-7 that increases with flexion and decreases with extension. The visualized neural foramen appear patent. IMPRESSION: * Anterolisthesis at C6-7 that increases with flexion and decreases with extension * Extensive postoperative changes with multilevel endplate osteophyte formation. Finalized by Delta Pablo MD on 08/17/2023 4:11 PM Normal [facility] XR CSPINE MIN 4 VIEWSon 04- XR CSPINE MIN 4 VIEWS EXAMINATION: XR [...] by: GRETA NAYLOR Date: 2022-12-16 15:11 Normal [facility] XR CSPINE OBL FLEX_EXTon XR CSPINE [...] by: GRETA NAYLOR Date: 2022-10-27 15:03 Normal [facility] 12-25-2021 Albumin [Mass/Vol] 4.9 g/dL Normal 3.6-5.1 [facility] Comment on above: Performed By: #### 1 7306, 7600, 94359, 5363 #### [facility] of [address], [address] [place] [address] Computer Information Science Professor: Nicolas Araujo MD Albumin/Globulin [Mass ratio] 2.1 {ratio} Normal 1.0-2.5 [facility] Comment on above: Performed By: #### 1 7306, 7600, 27270, 5363 #### [facility] of [address], [address] [place] [address] Computer Information Science Professor: Nicolas Araujo MD ALP [Catalytic activity/Vol] 49 U/L Normal 36-130 [facility] Comment on above: Performed By: #### 1 7306, 7600, 40839, 5363 #### [facility] of [address], [address] [place] [address] Computer Information Science Professor: Nicolas Araujo MD ALT [Catalytic activity/Vol] 14 U/L Normal 9-46 [facility] Comment on above: Performed By: #### 1 7306, 7600, 64966, 5363 #### [facility] of [place] [address] Computer Information Science Professor: Nicolas Araujo MD AST [Catalytic activity/Vol] 14 U/L Normal 10-40 [facility] Comment on above: Performed By: #### 1 7306, 7600, 33547, 5363 #### [facility] of [place] [address] Computer Information Science Professor: Nicolas Araujo MD Bilirubin [Mass/Vol] 0.7 mg/dL Normal 0.2-1.2 [facility] Comment on above: Performed By: #### 1 7306, 7600, 64450, 5363 #### [facility] of [place] [address] Computer Information Science Professor: Nicolas Araujo MD BUN/CREATININE RATIO NOT APPLICABLE Normal 6-22 [facility] Comment on above: Performed By: #### 1 7306, 7600, 03076, 5363 #### [facility] [place] [address] Computer Information Science Professor: Nicolas Araujo MD Calcium [Mass/Vol] 9.9 mg/dL Normal 8.6-10.3 [facility] Comment on above: Performed By: #### 1 7306, 7600, 68806, 5363 #### [facility] of [place] [address] Computer Information Science Professor: Nicolas Araujo MD Chloride [Moles/Vol] 101 mmol/L Normal 98-110 [facility] Comment on above: Performed By: #### 1 7306, 7600, 56293, 5363 #### [facility] [place] [address] Computer Information Science Professor: Nicolas Araujo MD CO2 [Moles/Vol] 27 mmol/L Normal 20-32 [facility] Comment on above: Performed By: #### 1 7306, 7600, 23542, 5363 #### [facility] [place] [address] Computer Information Science Professor: Nicolas Araujo MD Creatinine [Mass/Vol] 1.16 mg/dL Normal 0.60-1.35 [facility] Comment on above: Performed By: #### 1 7306, 7600, 54872, 5363 #### [facility] of [place] [address] Computer Information Science Professor: Nicolas Araujo MD eGFR NON-AFR. MOLDOVAN 76 mL/min/1.73m2 Normal > OR = 60 [facility] Comment on above: Performed By: #### 1 7306, 7600, 27384, 5363 #### [facility] of [place] [address] Computer Information Science Professor: Nicolas Araujo MD GFR/1.73 sq M.predicted among blacks MDRD (S/P/Bld) [Vol rate/Area] 88 mL/min/{1.73_m2} Normal > OR = 60 [facility] Comment on above: Performed By: #### 1 7306, 7600, 18303, 5363 #### [facility] [place] [address] Computer Information Science Professor: Nicolas Araujo MD Globulin (S) [Mass/Vol] 2.3 g/dL Normal 1.9-3.7 [facility] Comment on above: Performed By: #### 1 7306, 7600, 48329, 5363 #### [facility] [place] [address] Computer Information Science Professor: Nicolas Araujo MD Glucose [Mass/Vol] 93 mg/dL Normal 65-99 [facility] Comment on above: Result Comment: Fasting reference interval Performed By: #### 1 7306, 7600, 17284, 5363 #### [facility] of [place] [address] Computer Information Science Professor: Nicolas Araujo MD Potassium [Moles/Vol] 4.3 mmol/L Normal 3.5-5.3 [facility] Comment on above: Performed By: #### 1 7306, 7600, 58177, 5363 #### [facility] of [place] [address] Computer Information Science Professor: Nicolas Araujo MD Protein [Mass/Vol] 7.2 g/dL Normal 6.1-8.1 [facility] Comment on above: Performed By: #### 1 7306, 7600, 10729, 5363 #### [facility] of [place] [address] Computer Information Science Professor: Nicolas Araujo MD Sodium [Moles/Vol] 137 mmol/L Normal 135-146 [facility] Comment on above: Performed By: #### 1 7306, 7600, 32506, 5363 #### [facility] of [place] [address] Computer Information Science Professor: Nicolas Araujo MD Urea nitrogen [Mass/Vol] 17 mg/dL Normal 7- [facility] Comment on above: Performed By: #### 1 7306, 7600, 93328, 5363 #### [facility] [address], [address] [place] [address] Computer Information Science Professor: Nicolas Araujo MD LIPID PANEL, [facility] - Cholesterol [Mass/Vol] 200 mg/dL High <200 [facility] Comment on above: Order Comment: FASTI NG:YES FASTING: YES Performed By: #### 1 7306, 7600, 35376, 5363 #### [facility] [address], [address] [place] [address] Computer Information Science Professor: Nicolas Araujo MD Cholesterol in HDL [Mass/Vol] 38 mg/dL Low > OR = 40 [facility] Comment on above: Order Comment: FASTI NG:YES FASTING: YES Performed By: #### 1 7306, 7600, 84061, 5363 #### [facility] [address], [address] [place] [address] Computer Information Science Professor: Nicolas Araujo MD Cholesterol in LDL [Mass/Vol] [...] LDL-C. Jamison PEMBERTON et al. AGUSTO. 2013;310(19): 0623-1058 (http://education.Intacct.3G Multimedia/faq/FRC383) Performed By: #### 1 7306, 7600, 99505, 5363 #### [facility] [address], [address] [place] [address] Computer Information Science Professor: Nicolas Araujo MD Cholesterol.total/C holesterol in HDL [Mass ratio] 5.3 {ratio} High <5.0 [facility] Comment on above: Order Comment: FASTI NG:YES FASTING: YES Performed By: #### 1 7306, 7600, 73393, 5363 #### [facility] [address], [address] [place] [address] Computer Information Science Professor: Nicolas Araujo MD NON HDL CHOLESTEROL 162 mg/dL (calc) High <130 [facility] Comment on above: Order Comment: FASTI NG:YES FASTING: YES Result Comment: For patients with diabetes plus 1 major ASCVD risk factor, treating to a non-HDL-C goal of <100 mg/dL (LDL-C of <70 mg/dL) is considered a therapeutic option. Performed By: #### 1 7306, 7600, 99371, 5363 #### [facility] [place] [address] Computer Information Science Professor: Nicolas Araujo MD Triglyceride [Mass/Vol] 364 mg/dL High <150 [facility] Comment on above: Order Comment: FASTI NG:YES FASTING: YES Result Comment: If a non-fasting specimen was collected, consider repeat triglyceride testing on a fasting specimen if clinically indicated. Eugenie et al. J. of Clin. Lipidol. 2015;9:129-169. Performed By: #### 1 7306, 7600, 48566, 5363 #### [facility] [place] [address] Computer Information Science Professor: Nicolas Araujo MD PSA, TOTALon 12-25-2021 PSA, TOTAL 0.44 ng/mL Normal < OR = 4.00 [facility] Comment on above: Result Comment: The total PSA value from this assay system is standardized against the WHO standard. The test result will be approximately 20% lower when compared to the equimolar-standardized total PSA ([facility] [place]). Comparison of serial PSA results should be interpreted with this fact in mind. This test was performed using the Siemens chemiluminescent method. Values obtained from different assay methods cannot be used interchangeably. PSA levels, regardless of value, should not be interpreted as absolute evidence of the presence or absence of disease. Performed By: #### 1 7306, 7600, 46841, 5363 #### [facility] [address], [address] [place] [address] Computer Information Science Professor: Nicolas Araujo MD VITAMIN D,25-OH,TOTAL,IAon 0 12-25-2021 [...] D, (D2,D3), LC/MS/MS is recommended: order code 54758 (patients >2yrs). See Note 1 Note 1 For additional information, please refer to http://education.Intacct.3G Multimedia/faq/PBH624 (This link is being provided for informational/ educational purposes only.) Performed By: #### 1 7306, 7600, 66880, 5363 #### [facility] [address], [address] [place] [address] Computer Information Science Professor: Nicolas Araujo MD CT CERVICAL SPINE WITHOUT CO NTRASTon 10-30-2021 CT CERVICAL SPINE WITHOUT CONTRAST [facility] Department of Radiology [address] [place] [id number] ======== Patient Name: AVEL FUNES : 1975 Sex: M Age: Race: White Pt. Location: Patient Status: D Ordered Date: 09/18/2021 3:30:00 PM Completed Date: 10/30/2021 03:13 PM Requesting Provider: ALMA LEVINE Attending Provider: ALMA LEVINE Report Copy To: RODRICK RAMIRES Signs & Symptoms: M54.12 Radiculopathy, cervical region I10 History: Thu [phone] [facility] approval 09/19-10/03/21 Comments: Exam: CT CERVICAL [...] C3-4. Electronically signed: Greta Waters. Transcribed by: [email or web address], User Resident: Electronically Signed by: GRETA WATERS @ 11/02/2021 08:47 AM Normal [facility] CERVICAL SPINE 4 OR 5 VIEWS n 09-11-2021 CERVICAL SPINE 4 OR 5 VIEWS [facility] Department of Radiology [address] [place] [id number] ======== Patient Name: AVEL FUNES : [...] C2. Electronically signed: Avtar Barnes. Transcribed by: [email or web address], User Resident: Electronically Signed by: AVTAR BARNES @ 09/12/2021 02:45 PM Normal [facility] Comment on above: Order Comment: evalu ate CERVICAL SPINE 2 OR 3 [facility] 02-06-2021 CERVICAL SPINE 2 OR 3 [facility] Department of Radiology [address] [place] [phone] ======== Patient Name: AVEL UFNES : 1975 Sex: M Age: Race: White Pt. Location: 84 Patient Status: D Ordered Date: 02/06/2021 2:00:00 PM Completed Date: 02/06/2021 02:21 PM Requesting Provider: ALMA LEVINE Attending Provider: ALMA LEVINE Report Copy To: DEBRA RODRICK Signs & Symptoms: M50.30 Other cervical disc [...] pathology. Electronically signed: Koby Franks. Transcribed by: [email or web address], User Resident: Electronically Signed by: KOBY FRANKS @ 02/07/2021 09:02 AM Normal [facility] Comment on above: Order Comment: ap, l at CBC and Differentialon 04-06 Abs Baso 0.04 k/uL Normal <0.11 [facility] Abs [place] 0.72 k/uL Normal <0.87 [facility] Abs Neut 4.71 k/uL Normal 1.45-7.50 [facility] Absolute nRBC <0.01 [facility] WBC (Bld) 0.5 % Normal [facility] DTYPE Auto Diff Normal [facility] Eosinophils (Bld) [#/Vol] 0.11 10*3/uL Normal <0.46 [facility] Eosinophils/100 WBC (Bld) 1.3 % Normal [facility] Erythrocyte distribution width (RBC) [Ratio] 12.0 % Normal 11.5-15.0 [facility] Hematocrit (Bld) [Volume fraction] 43.4 % Normal 39.0-51.0 [facility] Hemoglobin (Bld) [Mass/Vol] 14.2 g/dL Normal 13.0-17.0 [facility] Lymphocytes (Bld) [#/Vol] 2.63 10*3/uL Normal 1.00-4.00 [facility] Lymphocytes/100 WBC (Bld) 32.0 % Normal [facility] MCH (RBC) [Entitic mass] 28.8 pG Normal 26.0-34.0 [facility] MCHC (RBC) [Mass/Vol] 32.7 g/dL Normal 30.5-36.0 [facility] MCV (RBC) [Entitic vol] 88.0 fL Normal 80.0-100.0 [facility] Monocytes/100 WBC (Bld) 8.8 % Normal [facility] Neutrophils/100 WBC (Bld) 57.4 % Normal [facility] NRBCs 0.0 /100 WBC Normal [facility] Plate[facility] mean volume (Bld) [Entitic vol] 11.0 fL Normal 9.0-12.7 [facility] Platelets (Bld) [#/Vol] 280 10*3/uL Normal 150-400 [facility] RBC (Bld) [#/Vol] 4.93 10*6/uL Normal 4.20-6.00 [facility] WBC (Bld) [#/Vol] 8.21 10*3/uL Normal 3.70-11.[address] [facility] [address] ABD/PEL W IVCONon 019 CT ABD/PEL W IVCON * * *Final Report* * * DATE OF EXAM: Apr 06 2019 7:38PM [facility] 0530 - CT ABD/PEL W IVCON / [...] of an acute intra-abdominal or pelvic process. [employer] Record Clerk: PSCJeanie Transcribe Date/Time: Apr 06 2019 7:43P Dictated by : ANALY YEPEZ MD This examination was interpreted and the report reviewed and electronically signed by: ANALY YEPEZ MD on Apr 06 2019 7:59PM EST [id number] Normal [facility] Comp Metabolic Panelon 04-06 Albumin [Mass/Vol] 4.8 g/dL Normal 3.9-4.9 [facility] ALP [Catalytic activity/Vol] 57 U/L Normal 38-113 [facility] ALT [Catalytic activity/Vol] Unable to assay. Specimen hemolyzed. Normal 10-54 [facility] Anion gap [Moles/Vol] 12 mmol/L Normal 9-18 [facility] AST [Catalytic activity/Vol] Unable to assay. Specimen hemolyzed. Normal 14-40 [facility] Bilirubin [Mass/Vol] 0.4 mg/dL Normal 0.2-1.3 [facility] Calcium [Mass/Vol] 9.8 mg/dL Normal 8.5-10.2 [facility] Chloride [Moles/Vol] 97 mmol/L Normal 97-105 [facility] CO2 [Moles/Vol] 28 mmol/L Normal 22-30 [facility] Creatinine [Mass/Vol] 1.03 mg/dL Normal 0.73-1.22 [facility] eGFR- Amer. >60 Normal [facility] GFR/1.73 sq M predicted among non-blacks MDRD (S/P/Bld) [Vol rate/Area] mL/min/{1.73_m2} Normal [facility] Comment on above: Result Comment: [...] GFR. Glucose [Mass/Vol] 95 mg/dL Normal 74-99 [facility] Comment on above: Result Comment: The [place] Diabetes Association (ADA) provides guidance for cutoff [...] Standards of Medical Care in Diabetes 2016, [place] [employer] Association. Diabetes Care. 2016.39(Suppl 1). Potassium [Moles/Vol] 4.4 mmol/L Normal 3.7-5.1 [facility] Comment on above: Result Comment: Cholo arredondo is slightly hemolyzed. Results are unaffected by this level of hemolysis. The performance characteristics of this test were determined by [facility]. It has not been cleared or approved by the FDA. [facility] is regulated under CLIA as qualified to perform high complexity testing. This test is used for clinical purposes. It should not be regarded as investigational or for research. Protein [Mass/Vol] 7.5 g/dL Normal 6.3-8.0 [facility] Sodium [Moles/Vol] 137 mmol/L Normal 136-144 [facility] Urea nitrogen [Mass/Vol] 9 mg/dL Normal 9-24 [facility] ED NOTEon 04-06-2019 ED NOTE HNO ID: [id number] Author: Patricia MagañaRn) KELVIN Astorga Service: ? [...] further questions and/or concerns at this time. [facility] ED NOTE HNO ID: [id number] Author: Patricia Calero) KELVIN Astorga Service: ? Author Type: Registered Nurse Type: ED Notes Filed: 04/06/2019 8:46 PM Note Text: The P.A is at bedside. [facility] ED NOTE HNO ID: [id number] Author: Belgica MagañaRn) KELVIN Dukes Service: Nursing Author Type: Registered Nurse Type: ED Notes Filed: 04/06/2019 6:23 PM Note Text: Pt presents to ER for evaluation of rectal bleeding x 3 days. Pt states that he was diagnosed with diverticulitis yesterday without a CT scan and was not started on any medications. [facility] ED PROV NOTEon 04-06-2019 ED PROV NOTE HNO ID: [id number] Author: Suyapa Vargas Service: ? Author Type: Physician Substation Operator Type: ED Provider Notes Filed: 04/06/2019 9:08 [...] Not on file ALLERGIES Allergen Reactions - [place] Other: See Comments - Ibuprofen GI Upset [...] Condition at time of disposition: stable SIGNATURE: TRCIIA Watters Pa-C 04/06/19 2108 [facility] PROGRESSon 04-06-2019 PROGRESS HNO ID: [id number] Author: Eileen Dougherty (Rt) Service: Radiology Author Type: Printing Table Worker Type: Progress Notes Filed: 04/06/2019 7:39 PM [...] RT Laura April 06, 2019 7:39 PM [facility] Encounters Encounter Date Encounter Type Care Provider Facility Start: 05-18-2024 End: 05-18-2024 ambulatory SUZANNE Irvin DIOP [facility] Start: 05-17-2024 End: 05-17-2024 ambulatory DELTA REN [facility] Start: 05-17-2024 Encounter for other preprocedural examination AURY BECERRA [facility] Start: 04-19-2024 End: 04-19-2024 ambulatory RODRICK Bryan [facility] Start: 03-08-2024 End: [facility] Start: 02-15-2024 End: 02-15-2024 ambulatory Karissa Ritchie MD Facility: [facility] Start: 02-09-2024 End: 02-09-2024 ambulatory [facility] Start: 02-09-2024 End: 02-09-2024 ambulatory [facility] Start: 12-01-2023 Refill Estela Espinoza GLASS DRILLER-DIRECTOR EMERGENCY [facility] Comment on above: Hyperlipidemia, unsp ecified Start: 10-30-2023 Refill Delta Harrison Work Phone: [facility] Start: 10-03-2023 End: 10-05-2023 ambulatory [facility] Start: 10-01-2023 Orders Only Estela Jain Dina GLASS DRILLER-DIRECTOR EMERGENCY Work Phone: [facility] Start: 10-01-[address] [facility] Work Phone: [facility] Comment on above: Insomnia, unspecifie d Start: 09-30-2023 End: 10-01-2023 ambulatory [facility] Start: 09-28-2023 Refill Estela Espinoza GLASS DRILLER-DIRECTOR EMERGENCY Work Phone: [facility] Comment on above: Other specified depr essive episodes; Urticaria, unspecified Gastro-esophageal re flux disease without esophagitis Start: 08-17-2023 End: 08-17-2023 [facility] Start: 01-13-2023 End: 01-14-2023 ambulatory NARENDRANATH LAKSHMIPATHY . Facility: Start: 12-16-2022 End: 12-17-2022 ambulatory NARENDRANATH LAKSHMIPATHY . Facility:[facility] Start: 12-04-2022 End: 12-05-2022 ambulatory PETRSARAHLINNEA HOLLEYPATHY . Facility:[facility] Start: 10-27-2022 End: 10-28-[address] DOCTOR SOSA Facility:[facility] Start: 09-10-2022 End: 09-11-2022 ambulatory ISAIAH FREEMAN . Facility:[facility] Start: 09-04-[address] SHAN PECK . Faci lity:[facility] Start: 06-26-2022 End: 06-27-[address] SHAN PECK . Facility:[facility] Start: 04-03-2022 End: 04-04-[address] SHAN PECK . Facility:[facility] Start: 10-30-2021 End: 10-31-2021 ambulatory RODRICKCASSI GUERRIERZARINA Facility:[facility] Procedures Date Procedure Procedure Detail Performing Clinician Start: 05-25-2023 Adult depression screening assessment Estela Dina [facility] Work Phone: Plan of Treatment Date Care Activity Detail Author Start: 11-29-2025 DTaP,Tdap and Td Vaccines (2 - Td or Tdap) DTaP,Tdap and Td Vaccines (2 - Td or Tdap) [facility] Start: 09-25-2024 Tobacco Counseling Tobacco Counselin g [facility] Start: 07-15-2024 Adult BMI Screening Adult BMI Screen ing [facility] Start: 07-15-2024 Tobacco Screening Tobacco Screening [facility] Start: 05-25-2024 Depression Screening Depression Scre ening [facility] Start: 05-01-2024 Influenza vaccination Influenza Vacc ine [facility] Start: 03-25-2024 Adult BMI Follow Up Plan Adult BMI Follow Up Plan [facility] Start: 05-01-2023 Influenza vaccination Influenza Vacc ine [facility] Immunizations Immunization Date Immunization Notes Care Provider Fa cility 08-19-2021 Influenza, injectabl e, Madin [place] Canine Kidney, preservative free, quadrivalent Estela Espinoza GLASS DRILLER-DIRECTOR EMERGENCY Work Phone: [facility] 08-19-2021 influenza virus vaccine, unspecified formulation Estela Dina COTTON-DIRECTOR EMERGENCY Work Phone: [facility] 12-14-2020 COVID-19, mRNA, LNP- S, PF, 100mcg/0.5mL Dose Estela Espinoza GLASS DRILLER-DIRECTOR EMERGENCY Work Phone: [facility] 12-11-2020 COVID-19, mRNA, LNP- S, PF, 100mcg/0.5mL Dose Estela Espinoza GLASS DRILLER-DIRECTOR EMERGENCY Work Phone: [facility] 11-16-2020 COVID-19, mRNA, LNP- S, PF, 100mcg/0.5mL Dose Estela Espinoza GLASS DRILLER-DIRECTOR EMERGENCY Work Phone: [facility] 11-13-2020 COVID-19, mRNA, LNP- S, PF, 100mcg/0.5mL Dose Estela Espinoza GLASS DRILLER-DIRECTOR EMERGENCY Work Phone: [facility] 08-27-2019 Influenza, injectabl e, Madin [place] Canine Kidney, preservative free, quadrivalent Estela Espinoza GLASS DRILLER-DIRECTOR EMERGENCY Work Phone: [facility] 06-13-2019 influenza, seasonal, injectable Estela Espinoza GLASS DRILLER-DIRECTOR EMERGENCY Work Phone: [facility] 06-11-2018 influenza, injectabl e, quadrivalent, preservative free Estela Espinoza GLASS DRILLER-DIRECTOR EMERGENCY Work Phone: [facility] 06-11-2018 influenza, seasonal, injectable Estela Espinoza GLASS DRILLER-DIRECTOR EMERGENCY Work Phone: [facility] 09-11-2017 Influenza, injectabl e, Madin [place] Canine Kidney, preservative free, quadrivalent Estela Espinoza GLASS DRILLER-DIRECTOR EMERGENCY Work Phone: [facility] 11-30-2015 tetanus toxoid, redu drew diphtheria toxoid, and acellular pertussis vaccine, adsorbed Estela Espinoza GLASS DRILLER-DIRECTOR EMERGENCY Work Phone: [facility] 08-21-2015 influenza, seasonal, injectable, preservative free Estela Espinoza GLASS DRILLER-DIRECTOR EMERGENCY [facility] 01-25-2014 hepatitis B vaccine, adult dosage Estela Espinoza GLASS DRILLER-DIRECTOR EMERGENCY Work Phone: [facility] 09-26-2013 hepatitis B vaccine, adult dosage Estela Espinoza GLASS DRILLER-DIRECTOR EMERGENCY [facility] 07-27-2013 hepatitis B vaccine, adult dosage Estela Espinoza GLASS DRILLER-DIRECTOR EMERGENCY Work Phone: [facility] [employer] [facility] Payers Date Payer Category Payer Unknown [id number] 2021 Medicare ANTHEM MEDICARE ANTHEM MEDICARE ADVANTAGE [id number] 2021-[facility] [phone] [address] [place] [address] [id number] 2021 Medicare [id number] 2015 Worker's Compensation 1976 Unknown [id number] 2.16.840.1.055097.3.579.2. 647 1976 Unknown [id number] 2.16.840.1.163308.3.579.2. 593 1976 Unknown [id number] 2.16.840.1.720251.3.579.2. 593 1976 Unknown [id number] 2.16.840.1.534415.3.579.2. 593 1976 Unknown [id number] 2.16.840.1.405459.3.579.2. 593 1976 Unknown [id number] 2.16.840.1.920381.3.579.2. 593 1976 Unknown [id number] 2.16.840.1.108629.3.579.2. 593 1976 Unknown [id number] 2.16.840.1.421380.3.579.2. 593 1976 Unknown [id number] 2.16.840.1.294671.3.579.2. 593 1976 Unknown [id number] 2.16.840.1.879200.3.579.2. 593 1976 Unknown [id number] 2.16.840.1.740005.3.579.2. 593 1976 Unknown [id number] 2.16.840.1.098889.3.579.2. 176 1976 Unknown [id number] 2.16.840.1.365349.3.579.2. 1286 1976 Unknown [id number] 2.16.840.1.791174.3.579.2. 1286 1976 Unknown [id number] 2.16.840.1.540838.3.579.2. 196 1976 Unknown [id number] 2.16.840.1.500567.3.579.2. 175 1976 Unknown [id number] 2.16.840.1.681341.3.579.2. 1286 1976 Unknown [id number] 2.16.840.1.385347.3.579.2. 1286 1976 Unknown [id number] 2.16.840.1.652971.3.579.2. 1286 1976 Unknown [id number] 2.16.840.1.872949.3.579.2. 1286 1976 Unknown [id number] 2.16.840.1.412863.3.579.2. 1286 1976 Unknown [id number] 2.16.840.1.863234.3.579.2. 1286 1976 Unknown [id number] 2.16.840.1.303208.3.579.2. 1286 1976 Unknown [id number] 2.16.840.1.653132.3.579.2. 1286 1959 Worker's Compensation [id number] Unknown JAYNA SEDGSADI K [facility] [id number] Effective for all dates [phone] [address] [place] [address] [id number]. [id number] Social History Date Type Detail Facility Start: 03-25-2023 Tobacco smoking stat us WYIS Never smoked tobacco [facility] Start: 03-25-2023 Tobacco use and exposure User of smokeless tobacco [facility] History of tobacco use Snuff User [facility] Start: 07-15-2023 Alcohol intake Current non-dr wood mechanist of alcohol (finding) [facility] Start: 10-11-2020 End: 07-15-2023 Alcohol intake [facility] Start: 10-11-2020 End: 07-15-2023 Tobacco use panel [facility] Adolescent depressio n screening assessment 0 [facility] Start: 1975 Sex Assigned At Male P [facility] Start: 01-30-2023 Gender identity Identifies as male gender (finding) [facility] Start: 01-30-2023 Sexual orientation Heterosexual (fin ding) [facility] Clinical Notes 04-03-2022 to 10-01-2023 ROSEY Purdy - 10/01/2023 2:43 PM EST Note Date & Type Note Facility 10-01-2023 History of Present illness Narrative The OARRS/MAPPS database was reviewed today and found to be appropriate. No indication of medication diversion, or non compliance. ROSEY Purdy 10/01/23 1443 documented in this encounter [facility] 12-04-2022 Note CONSULTATION CONSULTATION DATE: 12/04/2022 [...] our patients to inform us about any ysks-ini-hbtcjcv medications or herbal remedies/nutritional supplements/alternative remedies. 2. [...] options with their primary care provider. [facility] 10-27-2022 Note PROCEDURE: XR KNEE R T [...] by: GRETA NAYLOR Date: 2022-10-27 15:00 [facility] 09-10-2022 Note CONSULTATION PROCEDURE DATE: 09/10/2022 WBC [...] three months or sooner if needed. 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 [facility] codes for diagnosis M50.221, M50.222. PLAN: We will increase his Percocet for the winter months to 5/325 q.i.d. We will preauthorize for bilateral cervical trigger point injections to mitigate his cervical spams. Upon approval, the patient will be called to the office to receive those injections. The patient does agree with the plan of care. [facility] 04-03-2022 Note CONSULTATION CONSULTATION DATE: 04/03/2022 HISTORY OF PRESENT ILLNESS: This is a 46-year-old male who is being seen at our pain clinic for chronic neck pain and is a [facility] case. Patient did sustain a neck injury in 2014 due to a lifting incident. He was last seen on 12/26/2021 which, at that time, we were attempting to preauthorize for cervical medial branch blocks and a subsequent rhizotomy. That was declined by [facility] regardless of the pathology and the [...] upper extremities. Blunted bilateral brachioradialis reflexes. IMPRESSION: [facility] codes M50.221, M50.222. PLAN: We will add diclofenac 75 mg b.i.d. to help control his inflammatory pain. Lyrica will be increased to 150 mg b.i.d. No changes in his Percocet dose at this time. Heat application was encouraged as well as adding magnesium and a multivitamin. At this time, we will attempt to medically manage him, pending any further [facility] approval to move forward with procedural interventions. Patient is in agreement with this plan. We will see him back in early May for follow up. [facility] Evaluation note Diagnosis Other specified depressive episodes Urticaria, unspecified [facility] Gastro-esophageal reflux disease without esophagitis [facility] Diagnosis Insomnia, unspecified [facility] Diagnosis Hyperlipidemia, unspecified [facility] filedocumented in this [facility] filedocumented in this encounter [facility] filedocumented in this encounter [facility] filedocumented in this encounter [facility] Summary Purpose Family History No Family History [...] section and content) DATE CREATED AUTHOR 04/06/2019 [facility] DATE CREATED AUTHOR AUTHOR'S ORGANIZ ATION 11/09/2021 [facility] DATE CREATED AUTHOR AUTHOR'S ORGANIZ ATION 12/27/2021 [facility] DATE CREATED AUTHOR AUTHOR'S ORGANIZ ATION 01/14/2023 [facility] DATE CREATED AUTHOR AUTHOR'S ORGANIZ ATION 10/01/2023 [facility] DATE CREATED AUTHOR AUTHOR'S ORGANIZ ATION 02/10/2024 [facility] DATE CREATED AUTHOR AUTHOR'S ORGANIZ ATION 02/10/2024 [facility] DATE CREATED AUTHOR AUTHOR'S ORGANIZ ATION 03/02/2024 [facility] DATE CREATED AUTHOR AUTHOR'S ORGANIZ ATION 04/20/2024 [facility] DATE CREATED AUTHOR AUTHOR'S ORGANIZ ATION 05/21/2024 [facility] Reason for Visit (unrecogniz ed section and content) Reason Comments Med Refill Care Teams (unrecognized sec tion and content) 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 Relationship Specialty Start Date End Date Rodrick Ramires DO [address] [facility] [facility], [place] [address] PCP - General Family Medicine 10/16/16 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 Relationship Specialty Start Date End Date Rodrick Ramires DO [address] [place] [address] PCP - [facility] Family Medicine 10/16/16 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 Relationship Specialty Start Date End Date Rodrick Ramires DO [address] [place] [address] PCP - General Family [facility] 10/16/16 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 Relationship Specialty Start Date End Date Rodrick Ramires DO [address] [place] [address] PCP - [facility] Family Medicine 10/16/16 FOR RECORDS PERTAINING TO [...] BE BASED ON THE PRIMARY CLINICAL RECORDS. [facility] [employer] [facility]. provides no warranty or guarantee of the accuracy or completeness of information in this document.
[2024-05-23 09:26] VITALS: BP 84/62; PULSE 79; TEMP 36.6; O2SAT 97
[2024-05-23 10:04] VITALS: BP 88/54; PULSE 67; O2SAT 91
[2024-05-23 10:05] VITALS: BP 90/52; PULSE 74; O2SAT 92
[2024-05-23] MEDS: BUPIVACAINE HCL 0.25% PF 25 MG/10 ML VIAL INJ (10:09)
[2024-05-23] MEDS: IOHEXOL 240 MG/ML - 10 ML VIAL 24 MG INJ (10:10)
[2024-05-23] MEDS: DEXAMETHASONE SOD PHOS 10 MG/ML VIAL INJ (10:10)
[2024-05-23] MEDS: LIDOCAINE HCL 2% 400 MG/20 ML MDV 3 ML INJ (10:11)
--- NOTE | 2024-05-23 10:13 | W.PM.PROCNOT ---
Date of procedure: 05/23/24 Pre-op diagnosis: M50.221 Post-op diagnosis: same as pre-op Procedure: Procedure: Bilateral C4-5 transforaminal epidural steroid injection Medications: Bupivacaine 0.25% 1cc, lidocaine 2% 1cc, dexamethasone 10mg The patient was seen and examined in the preoperative holding area.? Informed consent was obtained and placed on the chart.? Patient was brought to the medical procedure unit and placed in the prone position where a timeout was completed verifying the correct patient, procedure site, position, and planned special equipment using sterile aseptic technique.? Under direct fluoroscopic visualization a 25-gauge Quincke tipped spinal needle was advanced at level left C4-5 to the designated neural foramen where contrast dye was injected to show adequate spread.? There was no evidence of vascular or adverse uptake.? Epidural spread was appreciated.? The above-mentioned injectate was then placed in a 1.5 mL aliquot preceded by negative aspiration.? The needle was removed. The same procedure, at the same level, was completed on the opposite side. ? Patient was taken to the postprocedural recovery area and monitored for an appropriate length of time before found suitable for discharge in the accompaniment of a responsible adult.? Anesthesia: Local Surgeon: Karissa Ritchie Pathology: none sent Condition: stable Disposition: no change
== END 2024-05-23 10:12 | disposition home or self-care (01) ==
LOC: SURGOUT 08:53
PROVIDERS: PCP Family Medicine; Visit Provider Anesthesiology
DX: M50.221 Other cervical disc displacement at C4-C5 level (principal)
CPT/HCPCS: 64479; J0665; J1100; Q9966

== ENCOUNTER 2024-06-06 13:26 | Outpatient (OUT) | payer OTHER, SELFPAY ==
--- NOTE | 2024-06-06 15:42 | P.CN_ITS ---
Consult Note: HPI Data of Consult Patient: known to practice within the last 3 years Consult date: 06/06/24 Requesting Physician: Karissa Ritchie MD Primary Care Provider: GOLDEN RICHARDSON Consult Narrative Reason for consult: left jaw pain Narrative: 48yom who presents for assessment. states still has neck and upper extremity pain, but primary complaint now is left jaw pain. states cannot chew or drink cold liquids without severe pain. states that he called dentist, but his dental insurance has maxed out. continues to use pain meds as needed. denies adverse med side effects. cc:: CC: Karissa Ritchie MD Review of Systems ROS Status of ROS 10 or more systems reviewed and unremark able except as noted in history and below [facility] Medical History (Updated 05/18/24 @ 14:03 by Eliz Swift RN) Osteoarthritis ?M19.90 - Unspecified osteoarthritis, unspecified site (ICD-10) Carpal tunnel syndrome ?G56.00 - Carpal tunnel syndrome, unspecified upper limb (ICD-10) Acid reflux ?K21.9 - Gastro-esophageal reflux disease without esophagitis (ICD-10) Enlarged prostate ?N40.0 - Benign prostatic hyperplasia without lower urinary tract symptoms (ICD-10) Asthma ?J45.909 - Unspecified asthma, uncomplicated (ICD-10) HTN (hypertension) ?I10 - Essential (primary) hypertension (ICD-10) Surgical History History of vasectomy ?Z98.52 - Vasectomy status (ICD-10) History of myringotomy ?Z98.890 - Other specified postprocedural states (ICD-10) History of shoulder surgery ?Z98.890 - Other specified postprocedural states (ICD-10) Hx of tonsillectomy ?Z90.89 - Acquired absence of other organs (ICD-10) History of knee surgery ?Z98.890 - Other specified postprocedural states (ICD-10) History of neck surgery ?Z98.890 - Other specified postprocedural states (ICD-10) Meds Home Medications and Allergies Home Medications ?Medication ?Instructions ?Recorded ?Confirmed ?Type atorvastatin 10 mg tablet 10 mg PO DAILY 05/13/23 05/23/24 History cetirizine 10 mg tablet 10 mg PO DAILY PRN allergy symptoms 05/13/23 05/23/24 History cholecalciferol (vitamin D3) 25 25 mcg PO DAILY 05/13/23 05/23/24 History mcg (1,000 unit) capsule (Vitamin D3) docusate sodium 100 mg capsule 100 mg PO DAILY 05/13/23 05/23/24 History hydroxyzine HCl 10 mg tablet 10 mg PO DAILY 05/13/23 05/23/24 History lisinopril 20 1 tab PO DAILY 05/13/23 05/23/24 History mg-hydrochlorothiazide 12.5 mg tablet omeprazole 20 mg capsule,delayed 20 mg PO DAILY 05/13/23 05/23/24 History release tamsulosin 0.4 mg capsule (Flomax) 0.4 mg PO DAILY 05/13/23 05/23/24 History venlafaxine 150 mg 150 mg PO DAILY 05/13/23 05/23/24 History capsule,extended release 24 hr (Effexor XR) pregabalin 100 mg capsule (Lyrica) 100 mg PO BID #120 caps 08/26/23 05/23/24 Rx tizanidine 4 mg capsule 4 mg PO BID PRN muscle spasticity 12/17/23 05/23/24 History diclofenac sodium 75 mg 75 mg PO BID PRN pain #60 tabs 04/27/24 05/23/24 Rx tablet,delayed release oxycodone-acetaminophen 5 mg-325 See Rx Instructions .Route 04/27/24 05/23/24 Rx mg tablet (Percocet) .COMPLEX PRN pain #130 tabs oxycodone-acetaminophen 5 mg-325 1 tab PO QID PRN pain #130 tabs 05/30/24 Rx mg tablet (Percocet) diclofenac sodium 75 mg 75 mg PO BID #60 tabs 06/06/24 Rx tablet,delayed release methylprednisolone 4 mg tablets in 4 mg PO DAILY #21 ea 06/06/24 Rx a dose pack (Medrol (Warren)) pregabalin 100 mg capsule (Lyrica) 100 mg PO QID #120 caps 06/06/24 Rx Allergies Allergy/AdvReac Type Severity Reaction Status Date / Time corn Allergy Vomiting Verified 05/23/24 09:22 Penicillins Allergy Hives Verified 05/23/24 09:22 ibuprofen AdvReac Nausea Verified 05/23/24 09:22 prednisone AdvReac Palpitation Verified 05/23/24 09:22 s Exam Narrative Exam Narrative: Psych-alert and oriented x 3.? Attentive and appropriate, constitutionally normal, displays normal mood and affect per situation.? There are no obvious deficits in memory, reasoning, or intellect.? Skin-no obvious rashes, bruising, or erythema noted to the patient's area of pain. Extremities-upper extremities are warm with minimal edema and palpable pulses. Cervical- tenderness to palpation noted in the cervical spine and paraspinal musculature.? Pain is elicited with extension, and lateral rotation of the cervical spine.? Range of motion is slightly diminished due to pain. Facet loading maneuvers are positive bilaterally.? Coordination remains intact.? Gait remains non-antalgic. Assessment and Plan Assessment and Plan (1) Displacement of intervertebral disc at C5-C6 level: (2) Displacement of intervertebral disc at C4-C5 level: Plan 48yom who presents for assessment. continues to have neck pain, but worse pain now is jaw pain. i encouraged him to follow up with his dentist, as i told him it was highly unlikely that his injection would cause severe tooth pain. he expressed understanding. will have him trial mdp. also will refill his lyrica, as he abruptly stopped this a few days ago because he ran out. follow up in 4 weeks.
== END 2024-06-06 13:27 | disposition home or self-care (01) ==
PROVIDERS: PCP Family Medicine; Visit Provider Anesthesiology
DX: M50.222 Other cervical disc displacement at C5-C6 level (principal); M50.221 Other cervical disc displacement at C4-C5 level
CPT/HCPCS: G0463

== ENCOUNTER 2024-06-22 10:38 | Outpatient (RCR) | payer OTHER, SELFPAY | END 2024-07-14 12:12 | disposition home or self-care (01) | LOC: PT 10:38 | PROVIDERS: PCP Family Medicine | DX: M50.322 Other cervical disc degeneration at C5-C6 level (principal); Z98.1 Arthrodesis status; M54.12 Radiculopathy, cervical region; M50.222 Other cervical disc displacement at C5-C6 level; M50.221 Other cervical disc displacement at C4-C5 level | CPT/HCPCS: 97012; 97035; 97110; 97140; 97162 ==

== ENCOUNTER 2024-07-06 13:28 | Outpatient (OUT) | payer OTHER, SELFPAY ==
--- NOTE | 2024-07-06 14:14 | P.CN_ITS ---
Consult Note: HPI Data of Consult Patient: known to practice within the last 3 years Consult date: 06/06/24 Requesting Physician: Anaid Phelps NP Primary Care Provider: GOLDEN RICHARDSON Consult Narrative Reason for consult: neck pain Narrative: 48yom who presents for assessment. longstanding neck and bilateral ue pain. imaging shows multilevel stenosis and spondylosis. continues in series of provider directed home exercises >6 weeks, without significant benefit. uses percocet and lyrica. denies adverse med side effects. recent bilateral C4/5 tfesi providing no improvement, continues to have moderate to severe neck pain. pain today 6/10 increasing to 10/1 with twsiting, dricing, looking down. Pain improved with medications, reclining, lying down. cc:: CC: Anaid Phelps NP Review of Systems ROS Status of ROS 10 or more systems reviewed and unremark able except as noted in history and below Musculoskeletal Reports: neck pain PFSH PFSH Medical History (Updated 05/18/24 @ 14:03 by Eliz Swift RN) Osteoarthritis ?M19.90 - Unspecified osteoarthritis, unspecified site (ICD-10) Carpal tunnel syndrome ?G56.00 - Carpal tunnel syndrome, unspecified upper limb (ICD-10) Acid reflux ?K21.9 - Gastro-esophageal reflux disease without esophagitis (ICD-10) Enlarged prostate ?N40.0 - Benign prostatic hyperplasia without lower urinary tract symptoms (ICD-10) Asthma ?J45.909 - Unspecified asthma, uncomplicated (ICD-10) HTN (hypertension) ?I10 - Essential (primary) hypertension (ICD-10) Surgical History History of vasectomy ?Z98.52 - Vasectomy status (ICD-10) History of myringotomy ?Z98.890 - Other specified postprocedural states (ICD-10) History of shoulder surgery ?Z98.890 - Other specified postprocedural states (ICD-10) Hx of tonsillectomy ?Z90.89 - Acquired absence of other organs (ICD-10) History of knee surgery ?Z98.890 - Other specified postprocedural states (ICD-10) History of neck surgery ?Z98.890 - Other specified postprocedural states (ICD-10) Meds Home Medications and Allergies Home Medications ?Medication ?Instructions ?Recorded ?Confirmed ?Type atorvastatin 10 mg tablet 10 mg PO DAILY 05/13/23 05/23/24 History cetirizine 10 mg tablet 10 mg PO DAILY PRN allergy symptoms 05/13/23 05/23/24 History cholecalciferol (vitamin D3) 25 25 mcg PO DAILY 05/13/23 05/23/24 History mcg (1,000 unit) capsule (Vitamin D3) docusate sodium 100 mg capsule 100 mg PO DAILY 05/13/23 05/23/24 History hydroxyzine HCl 10 mg tablet 10 mg PO DAILY 05/13/23 05/23/24 History lisinopril 20 1 tab PO DAILY 05/13/23 05/23/24 History mg-hydrochlorothiazide 12.5 mg tablet omeprazole 20 mg capsule,delayed 20 mg PO DAILY 05/13/23 05/23/24 History release tamsulosin 0.4 mg capsule (Flomax) 0.4 mg PO DAILY 05/13/23 05/23/24 History venlafaxine 150 mg 150 mg PO DAILY 05/13/23 05/23/24 History capsule,extended release 24 hr (Effexor XR) pregabalin 100 mg capsule (Lyrica) 100 mg PO BID #120 caps 08/26/23 05/23/24 Rx tizanidine 4 mg capsule 4 mg PO BID PRN muscle spasticity 12/17/23 05/23/24 History diclofenac sodium 75 mg 75 mg PO BID PRN pain #60 tabs 04/27/24 05/23/24 Rx tablet,delayed release oxycodone-acetaminophen 5 mg-325 See Rx Instructions .Route 04/27/24 05/23/24 Rx mg tablet (Percocet) .COMPLEX PRN pain #130 tabs oxycodone-acetaminophen 5 mg-325 1 tab PO QID PRN pain #130 tabs 05/30/24 Rx mg tablet (Percocet) diclofenac sodium 75 mg 75 mg PO BID #60 tabs 06/06/24 Rx tablet,delayed release methylprednisolone 4 mg tablets in 4 mg PO DAILY #21 ea 06/06/24 Rx a dose pack (Medrol (Warren)) pregabalin 100 mg capsule (Lyrica) 100 mg PO QID #120 caps 06/06/24 Rx oxycodone-acetaminophen 5 mg-325 1 tab PO QID PRN pain #130 tabs 06/27/24 Rx mg tablet (Percocet) pregabalin 100 mg capsule (Lyrica) 100 mg PO QID #120 caps 06/27/24 Rx Allergies Allergy/AdvReac Type Severity Reaction Status Date / Time corn Allergy Vomiting Verified 05/23/24 09:22 Penicillins Allergy Hives Verified 05/23/24 09:22 ibuprofen AdvReac Nausea Verified 05/23/24 09:22 prednisone AdvReac Palpitation Verified 05/23/24 09:22 s Exam Constitutional Documenting provider has reviewed patient's vital signs: yes Common normals: no apparent distress, oriented x3, healthy appearing, alert and well nourished General appearance: cooperative HENMT Common normals: normocephalic, hearing grossly normal bilaterally and moist oral mucous membranes Head and scalp: normocephalic Eye Common normals: PERRL Pupil: PERRL Neck & C-Spine Common normals: full ROM General: normal visual inspection Cervical spine: pain with cervical ROM, cervical spine tenderness and paracervical muscle tenderness Other: positive facet loading positive spurlings strength 4/5 in BUE decreased sensation C4,5,6 Chest Common normals: inspection of chest normal Respiratory Common normals: normal respiratory effort, no retractions and no use of accessory muscles Neuro Common normals: oriented x3, CN's II-XII intact bilaterally, moves all extremities, no focal motor deficits, no sensory deficits noted and deep tendon reflexes 2+ bilaterally Sensorium/orientation: alert Motor exam: strength 5/5 throughout and no movement abnormalities noted Psych Common normals: mental status grossly normal, thought process normal, cooperative, affect normal, speech normal and activity/motor behavior normal Speech: normal speech Thought process: normal thought process Results Additional Findings Additional findings: If on a controlled substance or opioids, I have checked an OARRS report on this patient and there are no aberrancies noted in the prescribing history.??If on a controlled substance or opioid a drug screen was completed and reviewed within the last year, and if there has not been a drug screen completed we ordered one today to monitor higher risk, state monitored pain medication use. As part of providing excellent, safe, comprehensive care, the following was completed at our patient's visit: 1. A medication reconciliation and review to ensure accurate knowledge of current/active medications, including asking our patients to inform us about any [id number]-orb-vzlnjjl medications or herbal remedies/nutritional supplements/alt ernative remedies. 2. A review to specifically ensure our patients have had annual screening for screening for depression, screening for tobacco use, and screening for unhealthy alcohol use. For concerning screenings had a discussion with the patient, provided patient education, and recommended follow-up with primary care provider when appropriate. If patient noted with a risk of falling, they received education on strength, gait, and balance training to prevent future risk of falling. Assessment and Plan Assessment and Plan (1) Displacement of intervertebral disc at C4-C5 level: (2) Displacement of intervertebral disc at C5-C6 level: (3) Chronic prescription opiate use: Plan update UDS today for medication monitoring bilateral C5-6 TFESI under fluoroscopy continue HEP as tolerated consider SCS trial in the future continue current medications, reporting mild pain relief and functional improvement without side effects f/u after injection
== END 2024-07-06 13:29 | disposition home or self-care (01) ==
LOC: PM 13:28
PROVIDERS: PCP Family Medicine; Visit Provider Nurse Practitioner
DX: M50.221 Other cervical disc displacement at C4-C5 level (principal); M50.222 Other cervical disc displacement at C5-C6 level; Z79.891 Long term (current) use of opiate analgesic
CPT/HCPCS: G0463

== ENCOUNTER 2024-11-02 12:36 | Outpatient (OUT) | payer OTHER, SELFPAY ==
--- OUTSIDE RECORDS SUMMARY | 2024-11-02 12:40 | XMS_ITS | CCD ---
Author Organization [facility] Care Team Providers Care Pvc Monitor Name Role Phone RODRICK RAMIRES Primary Care Unavailable RODRICK RAMIRES Referring Unavailable ALMA LEVINE Attending Unavailable ALMA LEVINE Admitting Unavailable MISC, DR KELLEY Admitting Unavailable Greta Naylor Consulting Unavailable FURLONG, DR RODRICK Bryan Primary Care Unavailable MISC, DR KELLEY Attending Unavailable SCHLISAMUEL, DR JEFFERS Consulting Unavailable PECK ., DR [...] ., NARENDLEEATH Attending Sherie vailable LAKSHMIPATHY ., NARENDLEEATH Admitting Sherie vailable FURLONG, DR RODRICK Bryan Primary Care Unavailable LAKSHMIPATHY ., NARENDRANATH Attending Sherie vailable LAKSHMIDIONNEY ., NARENDRANATH Admitting Sherie vailable Greta Naylor Consulting Unavailable FURLONG, DR RODRICK Bryan Primary Care Unavailable XIOMARASHMIPATHY ., KYLEATH Consulting Sherie vailable MARIAM, DR JEFFERS Attending Unavailable MARIAM, DR JEFFERS Admitting Unavailable Greta Naylor Consulting Unavailable FURLONG, DR RODRICK Bryan Primary Care Unavailable MARIAM, DR JEFFERS Consulting Unavailable RODRICK RAMIRES Primary Care Unavailable MARY MONZON Referring Unavailable FURLORODRICK PULIDO Attending Unavailable FURLONGRODRICK Referring Unavailable FURLONG, RODRICK Bryan Primary Care Unavailable FURLONGRODRICK Referring Unavailable FURLORODRICK PULIDO Primary Care Unavailable AURY BECERRA Referring Unavailable FURLONGRODRICK Primary Care Unavailable FURLONGRODRICK Referring Unavailable FURLONG, RODRICK Bryan Primary Care Unavailable FURLONGRODRICK Referring Unavailable FURLONG, RODRICK Bryan Primary Care Unavailable FURLONGRODRICK Referring Unavailable FURLONG, RODRICK Bryan Primary Care Unavailable FURLONG, RODRICK Bryan Referring Unavailable FURLONG, RODRICK Bryan Primary Care Unavailable DELTA REN Attending Unavailable DELTA REN Referring Unavailable FURLONGRODRICK Primary Care Unavailable DELTA REN Referring Unavailable FURLORODRICK PULIDO Primary Care Unavailable SUZANNE NGUYEN Referring Unavailable FURLONGRODRICK Primary Care Unavailable Erma SALAZAR, Karissa Lopez Attending Unavailable Erma SALAZAR, Karissa Lopez Attending Unavailable Erma SALAZAR, Karissa Lopez Attending Unavailable MARY MONZON Referring Unavailable MARY MONZON Attending Unavailable FURLONGRODRICK Primary Care Unavailable Furlong DORodrick Primary Care Provider [phone] Furlong Rodrick MATAMOROS Primary Care Provider RODRICK RAMIRES Primary Care Unavailable YON LIRA Attending Unavailable YON LIRA Referring Unavailable Allergies Allergy Classification Reported Allergen(s) Allergy Type Date of Onset Reaction(s) Facility corn extract (1 source) corn extract; Translations: [CORN] Drug Allergy 7 [facility] Corticosteroids (1 source) predniSONE; Translations: [PREDNISONE] Drug Allergy 7 [facility] NSAIDs (1 source) Ibuprofen; Translations: [IBUPROFEN] Drug Allergy 7 [facility] Penicillins (antibiotic) (1 source) Penicillins; Translations: [PENICILLINS] Drug Allergy 7 [facility] (20 sources) corn extract; Translations: [CORN] Drug Allergy [address] [facility] Rep[facility] (20 sources) Ibuprofen; Translations: [IBUPROFEN] Drug Allergy 6 GI Disturbance, Other (See Comments) [facility] Repository (4 sources) Penicillins; Translations: [PENICILLINS] Drug allergy (disorder) [address] [facility] Repository (20 sources) predniSONE; Translations: [PREDNISONE] Drug Allergy 6 Tachycardia, Hives, Shortness Of Breath, Swelling, Other (See Comments) [facility] Rep[facility] (1 source) [place] Containing Products Drug allergy (disorder) [facility]ository (20 sources) Penicillins Propensity to adverse reactions to drug 6 Hives, Rash [facility] (1 source) [place] Oil Drug Allergy 6 Diarrhea, Nausea And Vomiting [place] Phone: Medications Current Medications Medication Drug Class(es) Dates Sig (Normalized) Sig (Original) acetaminophen 325 mg / oxyCODONE hydrochloride 5 mg oral tablet (20 sources) Opioid Agonist Start: 06-06-2024 Oxycodone-Acetamin ophen Active TAB PO June 06, 2024 12:00am Start: 07-15-2019 take 1 tablet by yuki th every six hours as needed oxyCODONE-acetaminophen (PERCOCET) 5-325 MG per tablet Take 1 tablet by mouth every 6 hours as needed. 0 07/15/2019 Active take 1 tablet by yuki th every four hours as needed for pain oxyCODONE-acetaminophen (PERCOCET) 5-325 mg per tablet Take 1 tablet by mouth every 4 (four) hours as needed for pain. Active [id number] actuat albuterol 0.09 mg/actuat metered dose inhaler (20 sources) beta2-Adrenergic Agonist take 2 puff(s) by inhalation every six hours as needed for wheezing albuterol (PROVENTIL HFA;VENTOLIN HFA) 90 mcg/actuation inhaler Inhale 2 puffs every 6 (six) hours as needed for wheezing. Active baclofen 20 mg oral tablet (20 sources) gamma-Aminobutyric Acid-ergic Agonist Start: 023 take 0.5-1 tablets by mouth three times daily baclofen (LIORESAL) 20 mg tablet TAKE 1/2-1 TABLET BY MOUTH THREE TIMES A DAY 03/17/2023 Active calcium carbonate 1250 mg oral tablet (1 source) Start: 019 take 1 tablet by mouth three times daily calcium elemental (OSCAL) 500 MG TABS tablet TAKE ONE TABLET BY MOUTH THREE TIMES DAILY 3 06/16/2019 Active calcium citrate 950 mg oral tablet (20 sources) Start: 023 take 2 tablets by mouth three times daily calcium citrate (CALCITRATE) 200 mg (950 mg) tablet Indications: Arthrodesis status TAKE 2 TABLETS BY MOUTH 3 TIMES A DAY 540 tablet 1 10/30/2022 Active Start: 10-30-2022 take 1 tablet by yuki th twice daily calcium citrate (CALCITRATE) 950 (200 Ca) MG tablet Take 1 tablet by mouth 2 times daily 10/30/2022 Active cetirizine hydrochloride 10 mg oral tablet (20 sources) Histamine-1 Receptor Antagonist Start: 05-13-2023 take 1 tablet by mouth once daily cetirizine (ZYRTEC) 10 MG tablet Take 1 tablet by mouth daily 05/13/2023 Active cholecalciferol 0.05 mg oral tablet (20 sources) Vitamin D Start: 06-16-2019 take 1 tablet by mouth once daily Cholecalciferol (VITAMIN D) 50 MCG (2000 UT) TABS tablet TAKE ONE TABLET BY MOUTH EVERY DAY 3 06/16/2019 Active ciprofloxacin 500 mg oral tablet (1 source) Quinolone Antimicrobial Start: 07-10-2019 take 1 tablet by mouth every twelve hours ciprofloxacin (CIPRO) 500 MG tablet take 1 tablet by mouth every 12 hours 0 07/10/2019 Active cyclobenzaprine hydrochloride 5 mg oral tablet (1 source) Muscle Relaxant Start: 06-16-2019 take 1 tablet by mouth three times daily as needed for muscle spasms cyclobenzaprine (FLEXERIL) 5 MG tablet TAKE ONE TABLET BY MOUTH THREE TIMES DAILY NEEDED FOR MUSCLE SPASMS 0 06/16/2019 Active diazePAM 10 mg oral tablet (1 source) Benzodiazepine Start: 06-06-2024 Diazepam Active MG PO June 06, 2024 12:00am diclofenac sodium 75 mg delayed release oral tablet (20 sources) Nonsteroidal Anti-inflammatory Drug Start: 06-06-2024 Diclofenac Sodium Active MG PO June 06, 2024 12:00am Start: 06-05-2022 take 1 tablet by yuki th in the morning, then take 1 tablet by mouth at mealtime diclofenac (VOLTAREN) 75 mg EC tablet Take 1 tablet (75 mg total) by mouth in the morning and 1 tablet (75 mg total) in the evening. Take with meals. 06/05/2022 Active docusate sodium 100 mg oral capsule (20 sources) Start: 05-06-2022 take 1 capsule by mouth once daily STOOL SOFTENER 100 mg capsule Indications: Constipation, unspecified TAKE 1 CAPSULE BY MOUTH EVERY DAY 30 capsule 5 05/06/2022 Active famotidine 20 mg oral tablet (1 source) Histamine-2 Receptor Antagonist Start: 04-25-2019 take 1 tablet by mouth once daily famotidine (PEPCID) 20 MG tablet Take 1 tablet by mouth daily 0 04/25/2019 Active fluticasone propionate 0.05 mg/actuat metered dose nasal spray (1 source) Corticosteroid fluticasone (FLONASE) 50 MCG/ACT nasal spray Active hydroCHLOROthiazide 12.5 mg / lisinopril 20 mg oral tablet (20 sources) Thiazide Diuretic, Angiotensin Converting Enzyme Inhibitor Start: 06-06-2024 Lisinopril-Hydroc hlorothiazide Active TAB PO June 06, 2024 12:00am Start: 07-08-2023 End: 09-09-2024 take 1 tablet by mouth once daily lisinopril-hydroCHLOROthiazide (PRINZIDE,ZESTORETIC) 20-12.5 mg per tablet Indications: Essential (primary) hypertension take 1 tablet by mouth every day 90 tablet 1 03/15/2024 Active hydrOXYzine hydrochloride 10 mg oral tablet (20 sources) Antihistamine Start: 06-06-2024 Hydroxyzine Hc l Active MG PO June 06, 2024 12:00am Start: 05-22-2019 End: 09-09-2024 take 1 tablet by mouth once daily hydrOXYzine (ATARAX) 10 mg tablet Indications: Urticaria, unspecified Take 1 tablet (10 mg total) by mouth nightly. 90 tablet 1 03/14/2024 Active ketoconazole 20 mg/ml medicated shampoo (20 sources) Azole Antifungal Start: 04-11-2023 ketoconazole (NIZORAL) 2 % shampoo APPLY TOPICALLY 3 TIMES A WEEK 04/11/2023 Active ketorolac tromethamine 10 mg oral tablet (1 source) Nonsteroidal Anti-inflammatory Drug, Cyclooxygenase Inhibitor Start: 07-18-2019 take 1 tablet by mouth every six hours as needed for pain ketorolac (TORADOL) 10 MG tablet Take 1 tablet by mouth every 6 hours as needed for Pain 10 tablet 07/18/2019 Active Methylprednisolone (1 source) Corticosteroid Start: 06-06-2024 Methylprednisolone Active MG PO June 06, 2024 12:00am mirtazapine 15 mg oral tablet (20 sources) Start: 06-06-2024 Mirtazapine Active MG PO June 06, 2024 12:00am Start: 07-08-2023 End: 09-21-2024 take 1 tablet by mouth once daily mirtazapine (REMERON) 15 mg tablet Indications: Insomnia, unspecified take 1 tablet by mouth every day 90 tablet 1 03/26/2024 Active omeprazole 20 mg delayed release oral capsule (20 sources) Proton Pump Inhibitor Start: 06-06-2024 Omeprazo le Active MG PO June 06, 2024 12:00am Start: 03-31-2023 End: 09-09-2024 take 1 capsule by mouth once daily before breakfast omeprazole (PriLOSEC) 20 mg capsule Indications: Gastro-esophageal reflux disease without esophagitis Take 1 capsule (20 mg total) by mouth every morning before breakfast. 90 capsule 1 03/14/2024 Active 24 hr oxybutynin chloride 10 mg extended release oral tablet (20 sources) Cholinergic Muscarinic Antagonist Start: 06-06-2024 Oxybutynin Chloride Active MG PO June 06, 2024 12:00am Start: 04-10-2024 End: 10-07-2024 take 1 tablet by mouth once daily in the morning oxybutynin XL (DITROPAN-XL) 10 mg 24 hr tablet TAKE 1 TABLET BY MOUTH EVERY DAY IN THE MORNING 90 tablet 1 10/07/2024 Active Start: 07-15-2023 End: 03-08-2024 take 1 tablet by mouth every twenty-four hours in the morning oxybutynin XL (DITROPAN-XL) 10 mg 24 hr tablet TAKE 1 TABLET BY MOUTH IN THE MORNING 90 tablet 1 10/30/2023 Active pregabalin (20 sources) Start: 06-06-2024 Pregabalin Act ryder MG PO June 06, 2024 12:00am Start: 06-27-2019 take 1 capsule by mo uth three times daily pregabalin (LYRICA) 100 MG capsule Take 1 capsule by mouth 3 times daily. 2 06/27/2019 Active take 1 capsule by mo uth in the morning, then take 1 capsule by mouth at bedtime pregabalin (LYRICA) 50 mg capsule Take 1 capsule (50 mg total) by mouth in the morning and 1 capsule (50 mg total) before bedtime. Active rosuvastatin calcium 10 mg oral tablet (20 sources) HMG-CoA Reductase Inhibitor Start: 10-10-2024 take 1 tablet by mouth once daily in the morning rosuvastatin (CRESTOR) 10 mg tablet Indications: Hyperlipidemia, unspecified Take 1 tablet (10 mg total) by mouth every morning. 90 tablet 1 10/10/2024 Active Start: 06-06-2024 Rosuvastatin A ctive MG PO June 06, 2024 12:00am Start: 11-30-2022 End: 10-10-2024 take 1 tablet by mouth once daily rosuvastatin (CRESTOR) 10 mg tablet Indications: Hyperlipidemia, unspecified take 1 tablet by mouth every day 90 tablet 3 12/01/2023 Active tamsulosin hydrochloride 0.4 mg oral capsule (20 sources) alpha-Adrenergic Danica Start: 06-02-2023 End: 02-09-2024 take 1 capsule by mouth once daily tamsulosin (FLOMAX) 0.4 mg capsule Take 1 capsule (0.4 mg total) by mouth nightly. 02/09/2024 Active tiZANidine 4 mg oral tablet (19 sources) Central alpha-2 Adrenergic Agonist Start: 06-06-2024 Tizanidine Active MG PO June 06, 2024 12:00am Start: 12-18-2023 tiZANidine (ZA NAFLEX) 4 mg tablet Take 1 tablet (4 mg total) by mouth. 12/18/2023 Active 24 hr venlafaxine 150 mg extended release oral capsule (20 sources) Serotonin and Norepinephrine Reuptake Inhibitor Start: 06-06-2024 Venlafaxine Active MG PO June 06, 2024 12:00am Start: 03-14-2024 End: 09-09-2024 take 1 capsule by mouth every twenty-four hours in the morning venlafaxine XR (EFFEXOR-XR) 150 mg 24 hr capsule Indications: Other specified depressive episodes TAKE 1 CAPSULE (150 MG TOTAL) BY MOUTH IN THE MORNING 90 capsule 09/09/2024 Active Start: 05-17-2019 End: 03-14-2024 take 1 capsule by mouth once daily venlafaxine XR (EFFEXOR-XR) 150 mg 24 hr capsule Indications: Other specified depressive episodes TAKE 1 CAPSULE BY MOUTH EVERY DAY 90 capsule 1 09/28/2023 Active Completed/Discontinued Medications Medication Drug Class(es) Dates Sig (Normalized) Sig (Original) phentermine hydrochloride 37.5 mg oral tablet (10 sources) Sympathomimetic Amine Anorectic Start: 05-25-2023 End: 02-09-2024 take 30-30.9 tablets by mouth once daily before breakfast phentermine (ADIPEX-P) 37.5 mg tablet Indications: Class 1 obesity due to excess calories without serious comorbidity with body mass index (BMI) of 30.0 to 30.9 in adult Take 1 tablet (37.5 mg total) by mouth every morning before breakfast. 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] Onset: 09-28-2019 09-28-2019 Chronic Diabetes mellitus without complication (2 sources) Hyperglycemia, unspecified; Translations: [Hyperglycemia] Onset: 04-19-2024 03-24-2024 Episodic Disorders of lipid metabolism (20 sources) Mixed hyperlipidemia; Translations: [Hyperlipidemia] Onset: 08-28-2020 07-01-2022 Chronic Esophageal disorders (3 sources) Gastroesophageal reflux disease without esophagitis; Translations: [Gastro-esophageal reflux disease without esophagitis] 09-09-2024 Chronic Essential hypertension (20 sources) Essential (primary) hypertension; Translations: [Hypertensive disorder] Onset: 11-16-2018 09-09-2024 Chronic Gastritis and duodenitis (20 sources) Gastritis; Translations: [Unspecified chronic gastritis without bleeding] Onset: 03-02-2019 03-02-2019 Chronic Mood disorders (20 sources) Depressive disorder; Translations: [Other specified depressive episodes] Onset: 10-02-2017 09-09-2024 Chronic Nonmalignant breast conditions (4 sources) Unspecified lump in the left breast, upper outer quadrant; Translations: [Lump in upper outer quadrant of left breast] Onset: 02-09-2024 02-09-2024 Episodic Osteoarthritis (20 sources) Unilateral primary osteoarthritis, right knee; Translations: [Osteoarthritis] Onset: 07-03-2016 07-01-2022 Chronic Other connective tissue disease (1 source) Arthrodesis status; Translations: [Arthrodesis status] Onset: 09-16-2024 Episodic Other male genital disorders (20 sources) Induratio penis plastica; Translations: [Induration penis plastica] Onset: 07-15-2023 03-08-2024 Chronic Other nervous system disorders (1 source) Carpal tunnel syndrome of right wrist; Translations: [Carpal tunnel syndrome, right upper limb] 03-24-2024 Chronic Other nutritional; endocrine; and metabolic disorders (2 sources) Other obesity due to excess calories; Translations: [Other obesity due to excess calories] Onset: 02-09-2024 Chronic Other nutritional; endocrine; and metabolic disorders (2 sources) Body mass index (BMI) 30.0-30.9, adult; Translations: [Body mass index (BMI) 30.0-30.9, adult] Onset: 02-09-2024 Chronic Other nutritional; endocrine; and metabolic disorders (20 sources) Obesity caused by energy imbalance; Translations: [Class 1 obesity due to excess calories with serious comorbidity and body mass index (BMI) of 30.0 to 30.9 in adult] Onset: 02-09-2024 02-09-2024 Chronic Residual codes; unclassified (1 source) Obstructive sleep apnea (adult) (pediatric); Translations: [Obstructive sleep apnea (adult) (pediatric)] Onset: 10-16-2016 Chronic Residual codes; unclassified (20 sources) Obstructive sleep apnea syndrome; Translations: [Obstructive sleep apnea (adult) (pediatric)] Onset: 2016 10-16-2016 Chronic Residual codes; unclassified (1 source) Flushing; Translations: [Flushing] Onset: 04-19-2024 Episodic Residual codes; unclassified (4 sources) Insomnia; Translations: [Insomnia, unspecified] 09-21-2024 Episodic Spondylosis; intervertebral disc disorders; other back problems (15 sources) Other cervical disc displacement at C4-C5 level; Translations: [Other cervical disc displacement at C5-C6 level] Onset: 06-26-2022 Chronic Past or Other Problems Problem Classification Problem Date Documented Da te Episodic/Chronic Cardiac dysrhythmias (20 sources) Palpitations; Translations: [Palpitations] Onset: 07-01-2022 07-01-2022 Episodic Esophageal disorders (20 sources) Esophagitis; Translations: [Esophagitis] Onset: 03-02-2019 03-02-2019 Episodic Gastritis and duodenitis (20 sources) Gastritis; Translations: [Gastritis, unspecified, without bleeding] Onset: 03-02-2019 07-01-2022 Episodic Gastrointestinal hemorrhage (20 sources) Rectal hemorrhage; Translations: [Hemorrhage of anus and rectum] Onset: 09-16-2019 09-16-2019 Episodic Genitourinary symptoms and ill-defined conditions (20 sources) Unspecified symptoms and signs involving the genitourinary system; Translations: [Lower urinary tract symptoms] Onset: 05-06-2023 04-19-2024 Episodic Inflammatory conditions of male genital organs (20 sources) Epididymitis; Translations: [Epididymitis] Onset: 07-18-2019 07-01-2022 Episodic Joint disorders and dislocations; trauma-related (20 sources) Other tear of medial meniscus, current injury, right knee, initial encounter; Translations: [Tear of medial meniscus of knee] Onset: 07-20-2018 Episodic Mood disorders (20 sources) Mood disorders; Translations: [Depression, unspecified] Onset: 05-25-2023 Resolved: 03-24-2024 03-24-2024 Other and unspecified benign neoplasm (20 sources) Polyp of sigmoid colon; Translations: [Polyp of colon] Onset: 09-28-2019 09-28-2019 Episodic Other connective tissue disease (3 sources) Neuralgia and neuritis, unspecified; Translations: [Neuralgia and neuritis, unspecified] Onset: 09-30-2023 Episodic Other connective tissue disease (20 sources) Fibromyalgia; Translations: [Fibromyalgia] Onset: 08-12-2016 07-01-2022 Episodic Other connective tissue disease (20 sources) Impingement syndrome of shoulder region; Translations: [Impingement syndrome of unspecified shoulder] Onset: 08-07-2016 07-01-2022 Episodic Other connective tissue disease (20 sources) Hypertrophy of fat pad of knee; Translations: [Hypertrophy of (infrapatellar) fat pad] Onset: 07-20-2018 03-25-2023 Episodic Other gastrointestinal disorders (20 sources) Dysphagia; Translations: [Dysphagia, unspecified] Onset: 02-25-2019 02-25-2019 Episodic Other injuries and conditions due to external causes (1 source) Personal history of (healed) traumatic fracture; Translations: [Personal history of (healed) traumatic fracture] Onset: 08-17-2023 Episodic Other non-traumatic joint disorders (20 sources) Shoulder pain; Translations: [Pain in unspecified shoulder] Onset: 08-12-2016 07-01-2022 Episodic Other non-traumatic joint disorders (20 sources) Knee joint effusion; Translations: [Effusion, unspecified knee] Onset: 11-11-2017 03-25-2023 Episodic Other screening for suspected conditions (not mental disorders or infectious disease) (20 sources) Encounter for screening, unspecified; Translations: [Other specified abnormal findings of blood chemistry] Onset: 02-23-2020 Episodic Residual codes; unclassified (1 source) Flushing; Translations: [Flushing] 03-24-2024 Episodic Spondylosis; intervertebral disc disorders; other back problems (20 sources) Cervical radiculopathy; Translations: [Radiculopathy, cervical region] Onset: 03-06-2017 03-25-2023 Episodic Sprains and strains (20 sources) Sprain of upper extremity; Translations: [Unspecified sprain of unspecified shoulder joint, initial encounter] Onset: 11-11-2017 03-25-2023 Episodic Superficial injury; contusion (20 sources) Contusion of knee; Translations: [Contusion of unspecified knee, initial encounter] Onset: 11-11-2017 03-25-2023 Episodic Unclassified (20 sources) Onset: 03-25-2023 03-25-2023 Results Test Name Value Interpretation Reference Range Facility CT CERVICAL SPINE WO CONTRAS Ton 09-19-2024 CT CERVICAL SPINE WO CONTRAST EXAMINATION: CT OF THE CERVICAL SPINE WITHOUT CONTRAST 09/16/2024 6:57 pm TECHNIQUE: CT of the cervical spine was performed without the administration of intravenous contrast. Multiplanar reformatted images are provided for review. Automated exposure control, iterative reconstruction, and/or weight based adjustment of the mA/kV was utilized to reduce the radiation dose to as low as reasonably achievable. COMPARISON: MRI cervical spine 10/03/2023. HISTORY: ORDERING SYSTEM PROVIDED HISTORY: Cervical spondylosis with radiculopathy TECHNOLOGIST PROVIDED HISTORY: eval fusion AND hardware FINDINGS: BONES/ALIGNMENT: Straightening of the expected lordosis secondary to anterior and posterior fusion construct spanning C4, C5, and C6. No perihardware lucency or fracture. There is bony ankylosis spanning the disc spaces at the fusion site. Approximately 3 mm anterolisthesis of C6 on C7. DEGENERATIVE CHANGES: Disc space height loss throughout the cervical spine most significant at C6-C7. Moderate right and mild left osseous neural foraminal stenosis at C2-C3 secondary to uncovertebral and facet hypertrophy. Mild bilateral osseous neural foraminal stenosis at C3-C4 secondary to uncovertebral and facet hypertrophy. SOFT TISSUES: Mild bilateral mastoid effusions. IMPRESSION: 1. Anterior and posterior fusion construct spanning C4-C6 without evidence of hardware complication. 2. Multilevel degenerative changes of the cervical spine as described above. Interpreted by: Jun Mayers DO Signed by: Jun Mayers DO 09/19/24 Final result Normal [facility] ECG 12 leadon 05-18-2024 TRACEMASTERVUE [facility] URINALYSISon 05-18-2024 Bilirubin Ql (U) Negative Normal NEG [facility] Comment on above: Performed By: #### U A #### [facility] ([id number]) [address] [place] [address] BLOOD/HGB Negative Normal NEG [facility] Comment on above: Performed By: #### U A #### [facility] ([id number]) [address] [place] [address] Color (U) YELLOW Normal YELLOW [facility] Comment on above: Performed By: #### U A #### [facility] ([id number]) [address] [place] [address] Glucose Ql (U) Negative Normal NEG [facility] Comment on above: Performed By: #### U A #### [facility] ([id number]) [address] [place] [address] Ketones Ql (U) Negative Normal NEG [facility] Comment on above: Performed By: #### U A #### [facility] ([id number]) [address] [place] [address] Leukocyte esterase Test strip Ql (U) Negative Normal NEG [facility] Comment on above: Performed By: #### U A #### [facility] ([id number]) [address] [place] [address] Nitrite Ql (U) Negative Normal NEG [facility] Comment on above: Performed By: #### U A #### [facility] ([id number]) [address], [address] [place] [address] pH (U) 6.5 [pH] Normal 5.0-8.5 [facility] Comment on above: Performed By: #### U A #### [facility] ([id number]) [address], [address] [place] [address] Protein Ql (U) Negative Normal NEG [facility] Comment on above: Performed By: #### U A #### [facility] ([id number]) [address] [place] [address] Specific gravity (U) [Rel density] 1.009 Normal 1.003-1.035 [facility] Comment on above: Performed By: #### U A #### [facility] ([id number]) [address] [place] [address] TURBIDITY CLEAR Normal CLEAR [facility] Comment on above: Performed By: #### U A #### [facility] ([id number]) [address], [address] [place] [address] Urobilinogen (U) [Mass/Vol] mg/dL Normal <1.1 [facility] Comment on above: Performed By: #### U A #### [facility] ([id number]) [address] [place] [address] URINE CULTUREon 05-18-2024 Bacteria identified Cx Nom (U) SPECIMEN NOTES URINE RECEIVED WITHOUT PRESERVATIVE CULTURE RESULTS NO GROWTH AT <1000 CFU/mL Normal [facility] Comment on above: Performed By: #### 6 30-4 #### [facility] ([id number]) [address] [place] [address], [place] [address] [facility] ([id number]) [address] [place] [address] BASIC METABOLIC PANLon 05-17 Anion gap [Moles/Vol] 10 mmol/L Normal 5-15 [facility] Comment on above: Performed By: #### B MP #### [facility] ([id number]) [address], [address] [place] [address] Calcium [Mass/Vol] 10.0 mg/dL Normal 8.5-10.5 [facility] Comment on above: Performed By: #### B MP #### [facility] ([id number]) [address], [address] [place] [address] Chloride [Moles/Vol] 100 mmol/L Normal 98-109 [facility] Comment on above: Performed By: #### B MP #### [facility] ([id number]) [address] [place] [address] CO2 [Moles/Vol] 27 mmol/L Normal 22-32 [facility] Comment on above: Performed By: #### B MP #### [facility] ([id number]) [address] [place] [address] Creatinine [Mass/Vol] 1.10 mg/dL Normal 0.60-1.30 [facility] Comment on above: Result Comment: METH OD TRACEABLE TO IDMS STANDARD Performed By: #### B MP #### [facility] ([id number]) [address], [address] [place] [address] GFR/1.73 sq M.predicted among non-blacks MDRD (S/P/Bld) [Vol rate/Area] 83 mL/min/{1.73_m2} Normal >59 [facility] Comment on above: Result Comment: Reported eGFR is based on the CKD-EPI 1 equation that does not use a race coefficient. Performed By: #### B MP #### [facility] ([id number]) [address], [address] [place] [address] Glucose [Mass/Vol] 98 mg/dL Normal 65-99 [facility] Comment on above: Performed By: #### B MP #### [facility] ([id number]) [address], [address] [place] [address] Potassium [Moles/Vol] 3.8 mmol/L Normal 3.5-5.0 [facility] Comment on above: Performed By: #### B MP #### [facility] ([id number]) [address], [address] [place] [address] Sodium [Moles/Vol] 137 mmol/L Normal 134-146 [facility] Comment on above: Performed By: #### B MP #### [facility] ([id number]) [address], [address] [place] [address] Urea nitrogen [Mass/Vol] 16 mg/dL Normal 5-23 [facility] Comment on above: Performed By: #### B MP #### [facility] ([id number]) [address] [place] [address] Basic Metabolic Panelon - Anion gap [Moles/Vol] 10 mmol/L 5 - 15 mmol/L [facility] Calcium [Mass/Vol] 10.0 mg/dL 8.5 - 10. 5 mg/dL [facility] Chloride [Moles/Vol] 100 mmol/L 98 - 109 mmol/L [facility] CO2 [Moles/Vol] 27 mmol/L 22 - 32 mmol/L [facility] Creatinine [Mass/Vol] 1.10 mg/dL 0.60 - 1.30 mg/dL [facility] Comment on above: METHOD TRACEABLE TO IDNY STANDARD eGFR (CKD-EPI)non-race dependent 83 - PINF [facility] Comment on above: Reported eGFR is based on the CKD-EPI 2020 equation that does not use a race coefficient. Glucose [Mass/Vol] 98 mg/dL 65 - 99 mg/dL [facility] Potassium [Moles/Vol] 3.8 mmol/L 3.5 - 5.0 mmol/L [facility] Sodium [Moles/Vol] 137 mmol/L 134 - 146 mmol/L [facility] Urea nitrogen [Mass/Vol] 16 mg/dL 5 - 23 mg/dL [facility] HGB A1C (GLYCO-HGB)on 08-20- 2024 Glucose [Mass/Vol] 111 mg/dL Normal [facility] Comment on above: Performed By: #### H A1C, 3016-3, 2986-8 #### [facility] ([id number]) [address], [facility] [address] [place] [address] HbA1c (Bld) [Mass fraction] 5.5 % Normal 4.4-5.6 [facility] Comment on above: Result Comment: NOTE ADA Guidelines Result HgbA1c Normal : less than 5.7 % Prediabetes : 5.7 % to 6.4 % Diabetes : > 6.4 % Use with caution in patients with abnormal hemoglobin variants as the half-life of red blood cells and in vivo glycation rates are affected. Performed By: #### H A1C, 3016-3, 2986-8 #### [facility] ([id number]) [address] [facility] [address] [place] [address] TSH Qnon 04-19-2024 TSH 1.75 uIU/mL Normal 0.49-4.67 [facility] Comment on above: Performed By: #### H A1C, 3016-3, 2986-8 #### [facility] ([id number]) [address] [facility] [address] [place] [address] Testosterone [Mass/Vol]on TESTOSTERONE 2.39 ng/mL Normal 1.68-7.46 [facility] Comment on above: Performed By: #### H A1C, 3016-3, 2986-8 #### [facility] ([id number]) [address] [facility] [address] [place] [address] MAMM DIAGNOSTIC BILATERAL W CADon 03-08-2024 MAMM [...] PM 2 a F/U REFER DR Mccord [facility] US BREAST LT LIMITEDon 03-08 US BREAST [...] 2:02 PM 2 F/U REFER DR Mccord [facility] Comprehensive metabolic pane kulwinder 02-10-2024 Albumin [Mass/Vol] 4.9 g/dL 3.2 - 5.3 g/dL [facility] ALP [Catalytic activity/Vol] 48 U/L 39 - 130 U/L [facility] ALT No additional P-5'-P [Catalytic activity/Vol] 21 U/L 0 - 40 U/L [facility] Anion gap [Moles/Vol] 8 mmol/L 5 - 15 mmol/L [facility] AST [Catalytic activity/Vol] 16 U/L 0 - 41 U/L [facility] Bilirubin [Mass/Vol] 0.6 mg/dL 0.3 - 1.2 mg/dL [facility] Calcium [Mass/Vol] 10.0 mg/dL 8.5 - 10. 5 mg/dL [facility] Chloride [Moles/Vol] 101 mmol/L 98 - 109 mmol/L [facility] CO2 [Moles/Vol] 28 mmol/L 22 - 32 mmol/L [facility] Creatinine [Mass/Vol] 1.22 mg/dL 0.60 - 1.30 mg/dL [facility] Comment on above: METHOD TRACEABLE TO [facility] STANDARD eGFR (CKD-EPI)non-race dependent 74 - PINF [facility] Comment on above: Reported eGFR is based on the CKD-EPI 2020 equation that does not use a race coefficient. Glucose [Mass/Vol] 103 mg/dL High 65 - 99 mg/dL [facility] Potassium [Moles/Vol] 4.6 mmol/L 3.5 - 5.0 mmol/L [facility] Protein [Mass/Vol] 7.3 g/dL 6.0 - 8.0 g/dL [facility] Sodium [Moles/Vol] 137 mmol/L 134 - 146 mmol/L [facility] Urea nitrogen [Mass/Vol] 19 mg/dL 5 - 23 mg/dL [facility] Lipid 1996 panelon Cholesterol [Mass/Vol] 228 mg/dL High 150 - 200 mg/dL [facility] Cholesterol in HDL [Mass/Vol] 37 mg/dL Low 39 - PINF mg/dL [facility] Comment on above: HDL <40 mg/dL - High Risk HDL > or = 40mg/dL- Desirable HDL >60 mg/dL - Negative Risk Cholesterol in LDL [Mass/Vol] RESULT NOT REPORTED DUE TO HIGH TRIGLYCERIDE NINF - 130 mg/dL [facility] Cholesterol in VLDL [Mass/Vol] 115 mg/dL High 0 - 30 mg/dL [facility] Cholesterol.total/ Cholesterol in HDL [Mass ratio] 6.2 {ratio} High 1.0 - 5.0 [facility] Triglyceride [Mass/Vol] 577 mg/dL High 27 - 150 mg/dL [facility] [employer] [facility] No Panel Informationon 02-09 Interpretation and review of laboratory results Abnormal [facility] Vitamin D 25 hydroxyon 02-09 Vitamin D+Metabolites [Mass/Vol] 61.5 ng/mL 30 - 100 ng/mL [facility] Comment on above: Vitamin D status 25 [place] Vitamin D Deficiency <20 ng/mL Insufficiency 20-29 ng/mL Sufficiency 30-100 ng/mL Toxicity >100 ng/mL NOTE: A pediatric reference range has not been established by the nursing assistant of this kit. The [place] [employer] recommends a Vitamin D level of = or >20ng/mL in infants and children. Vitamin D+Metabolites [Mass/ Vol]on 02-10-2024 [facility] COMPREHENSIVE METABOLIC PANE Kulwinder 02-09-2024 Albumin [Mass/Vol] 4.9 g/dL Normal 3.2-5.3 [facility] Comment on above: Performed By: #### C , 11646-4, 2089-1, 90712-7 #### [facility] ([id number]) [address], [address] [place] [address] ALP [Catalytic activity/Vol] 48 U/L Normal 39-130 [facility] Comment on above: Performed By: #### C TUCKER, , 2088-08, 40185-6 #### [facility] ([id number]) [address], [address] [place] [address] ALT [Catalytic activity/Vol] 21 U/L Normal 0-40 [facility] Comment on above: Performed By: #### C TUCKER, , 2088-08, #### [facility] ([id number]) [address] [place] [address] Anion gap [Moles/Vol] 8 mmol/L Normal 5-15 [facility] Comment on above: Performed By: #### Florencia CEBALLOS, , 2088-08, #### [facility] ([id number]) [address], [address] [place] [address] AST [Catalytic activity/Vol] 16 U/L Normal 0-41 [facility] Comment on above: Performed By: #### Florencia CEBALLOS, , 2088-08, #### [facility] ([id number]) [address] [place] [address] Bilirubin [Mass/Vol] 0.6 mg/dL Normal 0.3-1.2 [facility] Comment on above: Performed By: #### Florencia CEBALLOS, , 2088-08, #### [facility] ([id number]) [address] [place] [address] Calcium [Mass/Vol] 10.0 mg/dL Normal 8.5-10.5 [facility] Comment on above: Performed By: #### Florencia CEBALLOS, , 2088-08, #### [facility] ([id number]) [address], [address] [place] [address] Chloride [Moles/Vol] 101 mmol/L Normal 98-109 [facility] Comment on above: Performed By: #### Florencia CEBALLOS, 58078-9, 2088-08, 96752-9 #### [facility] ([id number]) [address], [address] [place] [address] CO2 [Moles/Vol] 28 mmol/L Normal 22-32 [facility] Comment on above: Performed By: #### Floerncia CEBALLOS, , 2088-08, 72071-4 #### [facility] ([id number]) [address], [address] [place] [address] Creatinine [Mass/Vol] 1.22 mg/dL Normal 0.60-1.30 [facility] Comment on above: Result Comment: METH OD TRACEABLE TO IDMS STANDARD Performed By: #### Florencia CEBALLOS, , 2088-08, 83725-5 #### [facility] ([id number]) [address] [place] [address] GFR/1.73 sq M.predicted among non-blacks MDRD (S/P/Bld) [Vol rate/Area] 74 mL/min/{1.73_m2} Normal >59 [facility] Comment on above: Result Comment: Reported eGFR is based on the CKD-EPI 2020 equation that does not use a race coefficient. Performed By: #### C TUCKER, 32856-2, 2088-08, 33510-8 #### [facility] ([id number]) [address], [address] [place] [address] Glucose [Mass/Vol] 103 mg/dL High 65-99 [facility] Comment on above: Performed By: #### Florencia CEBALLOS, 19517-8, 2088-08, 27341-2 #### [facility] ([id number]) [address], [address] [place] [address] Potassium [Moles/Vol] 4.6 mmol/L Normal 3.5-5.0 [facility] Comment on above: Performed By: #### Florencia CEBALLOS, , 2088-08, 84802-6 #### [facility] ([id number]) [address], [address] [place] [address] Protein [Mass/Vol] 7.3 g/dL Normal 6.0-8.0 [facility] Comment on above: Performed By: #### Florencia CEBALLOS, , 2088-08, 59014-2 #### [facility] ([id number]) [address] [place] [address] Sodium [Moles/Vol] 137 mmol/L Normal 134-146 [facility] Comment on above: Performed By: #### Florencia CEBALLOS, , 2088-08, 75515-5 #### [facility] ([id number]) [address], [facility] [address] [place] [address] Urea nitrogen [Mass/Vol] 19 mg/dL Normal 5-23 [facility] Comment on above: Performed By: #### Florencia CEBALLOS, , 2088-08, 68846-5 #### [facility] ([id number]) [address], [address] [place] [address] DIRECT LDLon 02-09-2024 Cholesterol in LDL [Mass/Vol] 79 mg/dL Normal <130 [facility] Comment on above: Result Comment: LDL <100 mg/dL - Desirable LDL 130-159 mg/dL - Borderline High Risk LDL >160 mg/dL - High Risk Performed By: #### Florencia CEBALLOS, , 2088-08, 43941-8 #### [facility] ([id number]) [address] [place] [address] Lipid 1996 panelon 4 Cholesterol [Mass/Vol] 228 mg/dL High 150-200 [facility] Comment on above: Performed By: #### Florencia CEBALLOS, , 2088-08, 88810-7 #### [facility] ([id number]) [address] [place] [address] Cholesterol in HDL [Mass/Vol] 37 mg/dL Low >39 [facility] Comment on above: Result Comment: HDL <40 mg/dL - High Risk HDL > or = 40mg/dL- Desirable HDL >60 mg/dL - Negative Risk Performed By: #### Florencia CEBALLOS, , 2088-08, 28408-8 #### [facility] ([id number]) [address] [place] [address] Cholesterol in VLDL [Mass/Vol] 115 mg/dL High 0-30 [facility] Comment on above: Performed By: #### Florencia CEBALLOS, , 2088-08, 51246-7 #### [facility] ([id number]) [address] [place] [address] CHOLESTEROL:HDL 6.2 High 1.0-5.0 [facility] Comment on above: Performed By: #### C TUCKER, , 2088-08, 02180-6 #### [facility] ([id number]) [address], [address] [place] [address] LDL (CALC) RESULT NOT REPORTED DUE TO HIGH TRIGLYCERIDE Normal <130 [facility] Comment on above: Performed By: #### Florencia CEBALLOS, , 2088-08, 64929-4 #### [facility] ([id number]) [address], [address] [place] [address] Triglyceride [Mass/Vol] 577 mg/dL High 27-150 [facility] Comment on above: Performed By: #### C , 42753-2, 2088-08, 61423-6 #### [facility] ([id number]) [address] [place] [address] Vitamin D+Metabolites [Mass/ Vol]on 02-09-2024 VITAMIN D 25 HYD TOT 61.5 ng/mL Normal 30-100 [facility] Comment on above: Result Comment: Vitamin D status 25 [place] Vitamin D Deficiency <20 ng/mL Insufficiency 20-29 ng/mL Sufficiency 30-100 ng/mL Toxicity >100 ng/mL NOTE: A pediatric reference range has not been established by the nursing assistant of this kit. The [place] [employer] recommends a Vitamin D level of = or >20ng/mL in infants and children. Performed By: #### C , , 2088-08, 26873-5 #### [facility] ([id number]) [address], [address] [address] MRI CERVICAL SPINE WO CONTRA STon 10-07-2023 [...] - pt states hx cervical surgery x2 - no new injury- pain worsening right arm [...] stenosis or right foraminal narrowing. There is exxg-jh-noywtvyu left foraminal narrowing. C5-C6: There is uncovertebral and facet hypertrophy. There is no canal stenosis or foraminal narrowing. C6-C7: There is a disc osteophyte complex with uncovertebral and facet hypertrophy. There is no canal stenosis or right foraminal narrowing. There is ezem-ok-cfuptzew left foraminal narrowing. C7-T1: There is a [...] Edgar Ray MD 10/07/23 Final result Normal [facility] XR SPINE CERV 6 OR MORE VIEW [...] Pablo MD on 08/17/2023 4:11 PM Normal [facility] XR CSPINE MIN 4 VIEWSon 11-29 XR [...] by: GRETA NAYLOR Date: 2022-12-16 15:11 Normal [facility] XR CSPINE OBL FLEX_EXTon XR CSPINE [...] by: GRETA NAYLOR Date: 2022-10-27 15:03 Normal [facility] COMPREHENSIVE METABOLIC PANE Kulwinder 12-25-2021 Albumin [Mass/Vol] 4.9 g/dL Normal 3.6-5.1 [facility] Comment on above: Performed By: #### 1 7306, 7600, 75573, 5363 #### [facility] of [address], [address] [place] [address] Mat Weaver: Nicolas Araujo MD Albumin/Globulin [Mass ratio] 2.1 {ratio} Normal 1.0-2.5 [facility] Comment on above: Performed By: #### 1 7306, 7600, 78108, 5363 #### [facility] of [address], [address] [place] [address] Mat Weaver: Nicolas Araujo MD ALP [Catalytic activity/Vol] 49 U/L Normal 36-130 [facility] Comment on above: Performed By: #### 1 7306, 7600, 02030, 5363 #### [facility] [address], [address] [place] [address] Mat Weaver: Nicolas Araujo MD ALT [Catalytic activity/Vol] 14 U/L Normal 9-46 [facility] Comment on above: Performed By: #### 1 7306, 7600, 45999, 5363 #### [facility] of [address], [address] [place] [address] Mat Weaver: Nicolas Araujo MD AST [Catalytic activity/Vol] 14 U/L Normal 10-40 [facility] Comment on above: Performed By: #### 1 7306, 7600, 93543, 5363 #### [facility] of [address], [address] [place] [address] Mat Weaver: Nicolas Araujo MD Bilirubin [Mass/Vol] 0.7 mg/dL Normal 0.2-1.2 [facility] Comment on above: Performed By: #### 1 7306, 7600, 02149, 5363 #### [facility] of [place] [address] Mat Weaver: Nicolas Araujo MD BUN/CREATININE RATIO NOT APPLICABLE Normal 6-22 [facility] Comment on above: Performed By: #### 1 7306, 7600, 07455, 5363 #### [facility] of [address], [address] [place] [address] Mat Weaver: Nicolas Araujo MD Calcium [Mass/Vol] 9.9 mg/dL Normal 8.6-10.3 [facility] Comment on above: Performed By: #### 1 7306, 7600, 10845, 5363 #### [facility] [place] [address] Mat Weaver: Nicolas Araujo MD Chloride [Moles/Vol] 101 mmol/L Normal 98-110 [facility] Comment on above: Performed By: #### 1 7306, 7600, 19220, 5363 #### [facility] [place] [address] Mat Weaver: Nicolas Araujo MD CO2 [Moles/Vol] 27 mmol/L Normal 20-32 [facility] Comment on above: Performed By: #### 1 7306, 7600, 20908, 5363 #### [facility] [place] [address] Mat Weaver: Nicolas Araujo MD Creatinine [Mass/Vol] 1.16 mg/dL Normal 0.60-1.35 [facility] Comment on above: Performed By: #### 1 7306, 7600, 10890, 5363 #### [facility] [place] [address] Mat Weaver: Nicolas Araujo MD eGFR NON-AFR. ESTONIAN 76 mL/min/1.73m2 Normal > OR = 60 [facility] Comment on above: Performed By: #### 1 7306, 7600, 00865, 5363 #### [facility] of [place] [address] Mat Weaver: Nicolas Araujo MD GFR/1.73 sq M.predicted among blacks MDRD (S/P/Bld) [Vol rate/Area] 88 mL/min/{1.73_m2} Normal > OR = 60 [facility] Comment on above: Performed By: #### 1 7306, 7600, 10228, 5363 #### [facility] [place] [address] Mat Weaver: Nicolas Araujo MD Globulin (S) [Mass/Vol] 2.3 g/dL Normal 1.9-3.7 [facility] Comment on above: Performed By: #### 1 7306, 7600, 27633, 5363 #### [facility] of [place] [address] Mat Weaver: Nicolas Araujo MD Glucose [Mass/Vol] 93 mg/dL Normal 65-99 [facility] Comment on above: Result Comment: Fasting reference interval Performed By: #### 1 7306, 7600, 74006, 5363 #### [facility] [place] [address] Mat Weaver: Nicolas Araujo MD Potassium [Moles/Vol] 4.3 mmol/L Normal 3.5-5.3 [facility] Comment on above: Performed By: #### 1 7306, 7600, 98004, 5363 #### [facility] [place] [address] Mat Weaver: Nicolas Araujo MD Protein [Mass/Vol] 7.2 g/dL Normal 6.1-8.1 [facility] Comment on above: Performed By: #### 1 7306, 7600, 43883, 5363 #### [facility] of [place] [address] Mat Weaver: Nicolas Araujo MD Sodium [Moles/Vol] 137 mmol/L Normal 135-146 [facility] Comment on above: Performed By: #### 1 7306, 7600, 85643, 5363 #### [facility] of [place] [address] Mat Weaver: Nicolas Araujo MD Urea nitrogen [Mass/Vol] 17 mg/dL Normal 7-25 [facility] Comment on above: Performed By: #### 1 7306, 7600, 36137, 5363 #### [facility] [address], [address] [place] [address] Mat Weaver: Nicolas Araujo MD LIPID PANEL, [facility] 11-30 Cholesterol [Mass/Vol] 200 mg/dL High <200 [facility] Comment on above: Order Comment: FASTI NG:YES FASTING: YES Performed By: #### 1 7306, 7600, 71023, 5363 #### [facility] [address], [address] [place] [address] Mat Weaver: Nicolas Araujo MD Cholesterol in HDL [Mass/Vol] 38 mg/dL Low > OR = 40 [facility] Comment on above: Order Comment: FASTI NG:YES FASTING: YES Performed By: #### 1 7306, 7600, 18986, 5363 #### [facility] [address], [address] [place] [address] Mat Weaver: Nicolas Araujo MD Cholesterol in LDL [Mass/Vol] 110 mg/dL High [facility] Comment on above: Order Comment: FASTI NG:YES [...] LDL-C. Jamison PEMBERTON et al. AGUSTO. 2013;310(19): 8576-3771 (http://education.Green Clean.Ilusis/faq/EAC534) Performed By: #### 1 7306, 7600, 56171, 5363 #### [facility] [address], [address] [place] [address] Mat Weaver: Nicolas Araujo MD Cholesterol.total/ Cholesterol in HDL [Mass ratio] 5.3 {ratio} High <5.0 [facility] Comment on above: Order Comment: FASTI NG:YES FASTING: YES Performed By: #### 1 7306, 7600, 21905, 5363 #### [facility] [address], [address] [place] [address] Mat Weaver: Nicolas Araujo MD NON HDL CHOLESTEROL 162 mg/dL (calc) High <130 [facility] Comment on above: Order Comment: FASTI NG:YES FASTING: YES Result Comment: For patients with diabetes plus 1 major ASCVD risk factor, treating to a non-HDL-C goal of <100 mg/dL (LDL-C of <70 mg/dL) is considered a therapeutic option. Performed By: #### 1 7306, 7600, 12931, 5363 #### [facility] [address], [address] [place] [address] Mat Weaver: Nicolas Araujo MD Triglyceride [Mass/Vol] 364 mg/dL High <150 [facility] Comment on above: Order Comment: FASTI NG:YES FASTING: YES Result Comment: If a non-fasting specimen was collected, consider repeat triglyceride testing on a fasting specimen if clinically indicated. Eugenie et al. J. of Clin. Lipidol. 2015;9:129-169. Performed By: #### 1 7306, 7600, 46896, 5363 #### [facility] [address], [address] [place] [address] Mat Weaver: Nicolas Araujo MD PSA, TOTALon 12-25-2021 PSA, TOTAL 0.44 ng/mL Normal < OR = 4.00 [facility] Comment on above: Result Comment: The total [...] disease. Performed By: #### 1 7306, 7600, 39871, 5363 #### [facility] [address], [address] [place] [id number] Mat Weaver: Nicolas Araujo MD VITAMIN D,25-OH,TOTAL,IAon 0 12-25-2021 VITAMIN D,25-OH,TOTAL,IA 61 ng/mL Normal 30-100 [facility] Comment on above: Result Comment: Rima min D Status 25-OH Vitamin D: Deficiency: <20 ng/mL Insufficiency: 20 - 29 ng/mL Optimal: > or = 30 ng/mL For 25-OH Vitamin D testing on patients on D2-supplementation and patients for whom quantitation of D2 and D3 fractions is required, the QuestAssureD(TM) 25-OH VIT D, (D2,D3), LC/MS/MS is recommended: order code 07863 (patients >2yrs). See Note 1 Note 1 For additional information, please refer to http://education.Equinext/faq/YZP936 (This link is being provided for informational/ educational purposes only.) Performed By: #### 1 [phone], [phone], [id number], [id number] #### [facility] [address], [address] [place] [id number] Mat Weaver: Nicolas Araujo MD CT CERVICAL SPINE WITHOUT CO NTRASTon 10-30-2021 CT CERVICAL SPINE WITHOUT CONTRAST [facility] Department of Radiology [address] [place] [id number] Patient Name: AVEL FUNES : 1975 Sex: M Age: Race: White Pt. Location: Patient Status: D Ordered Date: 09/18/2021 3:30:00 PM Completed Date: 10/30/2021 03:13 PM Requesting Provider: ALMA LEVINE Attending Provider: ALMA LEVINE Report Copy To: RODRICK RAMIRES Signs & Symptoms: M54.12 Radiculopathy, cervical region I10 History: Thu [phone] [facility] approval 09/19-10/03/21 Comments: Exam: CT CERVICAL SPINE WITHOUT CONTRAST Clinical history:Arm pain, radiculopathy. Prior cervical fusion. [...] C3-4. Electronically signed: Greta Waters. Transcribed by: [email or web address], User Resident: Electronically Signed by: GRETA WATERS @ 11/02/2021 08:47 AM Normal [facility] CERVICAL SPINE 4 OR [address] [facility] Department of Radiology [address] [place] [id number] Patient Name: AVEL FUNES : 1975 Sex: M Age: Race: White Pt. Location: Patient Status: D Ordered Date: 09/11/2021 1:15:00 PM Completed Date: 09/11/2021 01:11 PM Requesting Provider: ALMA LEVINE Attending Provider: Report Copy To: Signs & Symptoms: M54.2 Cervicalgia I10 History: Comments: evaluate Exam: CERVICAL SPINE 4 OR 5 VIEWS CERVICAL SPINE 4 OR 5 VIEWS HISTORY: [...] C2. Electronically signed: Avtar Barnes. Transcribed by: [email or web address], User Resident: Electronically Signed by: AVTAR BARNES @ 09/12/2021 02:45 PM Normal [facility] Comment on above: Order Comment: evalu ate CERVICAL SPINE 2 OR 3 [facility] 02-06-2021 CERVICAL SPINE 2 OR 3 [facility] Department of Radiology [address] [place] [id number] Patient Name: AVEL FUNES : 1975 Sex: M Age: Race: White Pt. Location: Patient Status: D Ordered Date: 02/06/2021 2:00:00 PM Completed Date: 02/06/2021 02:21 PM Requesting Provider: ALMA LEVINE Attending Provider: ALMA LEVINE Report Copy To: ARLETTEASHOKRODRICK Signs & Symptoms: M50.30 Other cervical disc degeneration, unsp cervical region I10 History: Thu Comments: ap, lat Exam: CERVICAL SPINE 2 OR 3 VWS EXAMINATION: CERVICAL SPINE 2 OR 3 VWS [...] pathology. Electronically signed: Koby Franks. Transcribed by: [email or web address], User Resident: Electronically Signed by: KOBY FRANKS @ 02/07/2021 09:02 AM Normal [facility] Comment on above: Order Comment: ap, l at [facility] and Differentialon 04-06 Abs Baso 0.04 k/uL Normal <0.11 [facility] Abs Tensas 0.72 k/uL Normal <0.87 [facility] Abs Neut 4.71 k/uL Normal 1.45-7.50 [facility] Absolute nRBC <0.01 Normal <0.01 [facility]/100 WBC (Bld) 0.5 % Normal [facility] DTYPE Auto Diff Normal [facility] Eosinophils (Bld) [#/Vol] 0.11 10*3/uL Normal <0.46 [facility] Eosinophils/100 WBC (Bld) 1.3 % Normal [facility] Erythrocyte distribution width (RBC) [Ratio] 12.0 % Normal 11.5-15.0 [facility] Hematocrit (Bld) [Volume fraction] 43.4 % Normal 39.0-51.0 [facility] Hemoglobin (Bld) [Mass/Vol] 14.2 g/dL Normal 13.0-17.0 [facility] Lymphocytes (Bld) [#/Vol] 2.63 10*3/uL Normal 1.00-4.00 [facility] Lymphocytes/100 WBC (Bld) 32.0 % Normal [facility] MCH (RBC) [Entitic mass] 28.8 pG Normal 26.0-34.0 [facility] MCHC (RBC) [Mass/Vol] 32.7 g/dL Normal 30.5-36.0 [facility] MCV (RBC) [Entitic vol] 88.0 fL Normal 80.0-100.0 [facility] Monocytes/100 WBC (Bld) 8.8 % Normal [facility] Neutrophils/100 WBC (Bld) 57.4 % Normal [facility] NRBCs 0.0 /100 WBC Normal 0 [facility] Platelet mean volume (Bld) [Entitic vol] 11.0 fL Normal 9.0-12.7 [facility] Platelets (Bld) [#/Vol] 280 10*3/uL Normal 150-400 [facility] RBC (Bld) [#/Vol] 4.93 10*6/uL Normal 4.20-6.00 [facility] WBC (Bld) [#/Vol] 8.21 10*3/uL Normal 3.70-11.[address] [facility] [address] ABD/PEL W IVCONon 019 CT ABD/PEL W IVCON * * *Final Report* * * DATE OF EXAM: Apr 06 2019 7:38PM [facility] 0530 - CT ABD/PEL W IVCON [...] of an acute intra-abdominal or pelvic process. 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 Specimen hemolyzed. Normal 10-54 [facility] Anion gap [Moles/Vol] 12 mmol/L Normal 9-18 [facility] AST [Catalytic activity/Vol] Unable to assay. Specimen hemolyzed. Normal 14-40 [facility] Bilirubin [Mass/Vol] 0.4 mg/dL Normal 0.2-1.3 [facility] Calcium [Mass/Vol] 9.8 mg/dL Normal 8.5-10.[address] [facility] Chloride [Moles/Vol] 97 mmol/L Normal 97-105 [facility] CO2 [Moles/Vol] 28 mmol/L Normal 22-30 [facility] Creatinine [Mass/Vol] 1.03 mg/dL Normal 0.73-1.22 [facility] eGFR- Amer. >[address] [facility] GFR/1.73 sq M predicted among non-blacks MDRD (S/P/Bld) [Vol rate/Area] mL/min/{1.73_m2} Normal [facility] Comment on above: Result Comment: eGFR [...] ospital Comment on above: Result Comment: The [place] Diabetes Association (ADA) provides guidance for cutoff [...] Standards of Medical Care in Diabetes 2016, [place] Diabetes Association. Diabetes Care. 2016.39(Suppl 1). Potassium [Moles/Vol] 4.4 mmol/L Normal 3.7-5.1 [facility] Comment on above: Result Comment: Cholo arredondo is slightly hemolyzed. Results are unaffected by this level of hemolysis. The performance characteristics of this test were determined by [facility]. It has not been cleared or approved by the FDA. [facility] is regulated under CLIA as qualified to perform high complexity testing. This test is used for clinical purposes. It should not be regarded as investigational or for research. Protein [Mass/Vol] 7.5 g/dL Normal 6.3-8.[address] [facility] Sodium [Moles/Vol] 137 mmol/L Normal 136-[address] [facility] Urea nitrogen [Mass/Vol] 9 mg/dL Normal 9-24 [facility] ED NOTEon 04-06-2019 ED NOTE HNO ID: [id number] Author: Patricia MagañaRn) KELVIN Astorga Service: ? [...] further questions and/or concerns at this time. [facility] ED NOTE HNO ID: [id number] Author: Patricia Calero) KELVIN Astorga Service: ? Author Type: Registered Nurse Type: ED Notes Filed: 04/06/2019 8:46 PM Note Text: The P.A is at bedside. [facility] ED NOTE HNO ID: [id number] Author: Belgica MagañaRn) KELVIN Dukes Service: Nursing Author Type: Registered Nurse Type: ED Notes Filed: 04/06/2019 6:23 PM Note Text: Pt presents to ER for evaluation of rectal bleeding x 3 days. Pt states that he was diagnosed with diverticulitis yesterday without a CT scan and was not started on any medications. [facility] ED PROV NOTEon 04-06-2019 ED PROV NOTE HNO ID: [id number] Author: Suyapa Vargas Service: ? Author Type: Physician Highway Engineering Teacher Type: ED Provider Notes Filed: 04/06/2019 9:08 [...] Not on file ALLERGIES Allergen Reactions - [place] Other: See Comments - Ibuprofen GI Upset - Penicillin Rash - Prednisone Swelling Review of Systems Constitutional: Negative. HENT: Negative. Respiratory: Negative. Cardiovascular: Negative. Gastrointestinal: Positive for abdominal pain and blood in stool. Genitourinary: Negative. Musculoskeletal: Negative. Skin: Negative. Neurological: Negative. Psychiatric/Behaviora l: Negative. All other systems reviewed and are [...] Ordered and Reviewed CBC + AUTO DIFF (AK,AV,EU,FV,HL,ALYSON,MM ,SP) COMPREHENSIVE METABOLIC PANEL (AK,AV,EU,FV,HL,ALYSON,MM ,SP) FECAL OCCULT BLOOD - ED(POC) Procedures ED [...] stable SIGNATURE: TRICIA Watters Pa-C 04/06/19 2108 [facility] PROGRESSon 04-06-2019 PROGRESS HNO ID: [id number] Author: Eileen Dougherty (Rt) Service: Radiology Author Type: Central Office Repairer Type: Progress Notes Filed: 04/06/2019 7:39 PM [...] RT Laura April 06, 2019 7:39 PM [facility] Vital Signs Date Time Vital Sign Value Performing Clinician Antony rice 06-06-2024 17:16040 Body height 172.72 cm [facility] 06-06-2024 17:040 Body mass index (BMI) [Ratio] 30.2 kg/m2 [facility] 06-06-2024 17:16040 Body temperature 98 [degF] [facility] 06-06-2024 17:16040 Body weight 90.37 kg [facility] 06-06-2024 17:16-040 Diastolic blood pressure 56 mm[Hg] [facility] 06-06-2024 17:16-0400 Heart rate 87 /min [facility] 06-06-2024 17:16-0400 Respiratory rate 18 /min [facility] 06-06-2024 17:16-0400 SaO2% (BldA) [Mass fraction] 98 % [facility] 06-06-2024 17:16-0400 Systolic blood pressure 89 mm[Hg] [facility] 05-17-2024 09:08-0400 Body height 170.[address] [facility] 05-17-2024 09:08-0400 Body mass index (BMI) [Ratio] 30.54 kg/m2 Pm 2 [facility] 05-17-2024 09:08-0400 Body weight 88.[address] [facility] 03-24-2024 11:10-0400 Body height 172.7 cm Rodrick Furlong DO Work Phone: [facility] 03-24-2024 11:10-0400 Body mass index (BMI) [Ratio] 30.53 kg/m2 Rodrick Furlong DO Work Phone: [facility] 03-24-2024 11:10-0400 Body temperature 98.1 [degF] Rodrick Furlong DO Work Phone: [facility] 03-24-2024 11:10-0400 Body weight 91.08 kg Rodrick Furlong DO Work Phone: [facility] 03-24-2024 11:10-0400 Diastolic blood pressure 60 mm[Hg] Rodrick Furlong DO Work Phone: [facility] 03-24-2024 11:10-0400 Heart rate 84 /min Rodrick Furlong DO Work Phone: [facility] 03-24-2024 11:10-0400 Respiratory rate 18 /min Rodrick Furlong DO Work Phone: [facility] 03-24-2024 11:10-0400 SaO2% (BldA) [Mass fraction] 98 % Rodrick Ramires DO Work Phone: [facility] [employer] [facility] 03-24-2024 11:10-0400 Systolic blood pressure 90 mm[Hg] Rodrick Ramires DO Work Phone: [facility] [employer] [facility] 03-08-2024 14:42-0400 Body height 172.7 cm Suzanne Nguyen MD Work Phone: [facility] [employer] [facility] 03-08-2024 14:42-0400 Body mass index (BMI) [Ratio] 30.26 kg/m2 Suzanne Nguyen MD Work Phone: [facility] [employer] [facility] 03-08-2024 14:42-0400 Body weight 90.27 kg Suzanne Nguyen MD Work Phone: [facility] [employer] [facility] 03-08-2024 14:42-0400 Diastolic blood pressure 80 mm[Hg] Suzanne Nguyen MD Work Phone: [facility] [employer] [facility] 03-08-2024 14:42-0400 Heart rate 78 /min Suzanne Nguyen MD Work Phone: [facility] 03-08-2024 14:42-0400 Systolic blood pressure 114 mm[Hg] Suzanne Nguyen MD Work Phone: [facility] [employer] [facility] 02-09-2024 14:27-0400 Body height 172.7 cm Rodrick Ramires DO Work Phone: [facility] [employer] [facility] 02-09-2024 14:27-0400 Body mass index (BMI) [Ratio] 30.26 kg/m2 Rodrick Hahnng DO Work Phone: [facility] [employer] [facility] 02-09-2024 14:27-0400 Body temperature 98.1 [degF] Rodrick Hahnng DO Work Phone: [facility] [employer] [facility] 02-09-2024 14:27-0400 Body weight 90.27 kg Rodrick Hahnng DO Work Phone: [facility] 02-09-2024 14:27-0400 Diastolic blood pressure 70 mm[Hg] Rodrick Ramires DO Work Phone: [facility] [employer] [facility] 02-09-2024 14:27-0400 Heart rate 102 /min Rodrick Ramires DO Work Phone: [facility] [employer] [facility] 02-09-2024 14:27-0400 SaO2% (BldA) [Mass fraction] 96 % Rodrick Ramires DO Work Phone: [facility] [employer] [facility] 02-09-2024 14:27-0400 Systolic blood pressure 100 mm[Hg] Rodrick Ramires DO Work Phone: [facility] Encounters Encounter Date Encounter Type Care Provider Facility Start: 10-10-2024 End: 10-10-2024 Refill Elizabeth Riggins CMA [facility] Comment on above: Hyperlipidemia, unsp ecified Start: 10-05-2024 End: 10-07-2024 Refill Delta Ortiz MD Work Phone: [facility] Start: 09-21-2024 End: 09-21-2024 Refill Rodrick Ramires DO Work Phone: [facility] Comment on above: Insomnia, unspecifie d Start: 09-21-2024 End: 09-21-2024 Telephone encounter Rodrick Ramires DO Work Phone: [facility] Start: 09-16-2024 End: 09-18-2024 ambulatory RODRICK RAMIRES [facility] Start: 09-16-2024 End: 09-18-2024 Subsequent hospital visit by physician Yon Lira DO Work Phone: [facility] CT Scan Comment on above: Cervical spondylosis with radiculopathy; 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 Start: 09-09-2024 End: 09-09-2024 Refill Rodrick Ramires DO Work Phone: [facility] Comment on above: Urticaria, unspecifi ed; Other specified depressive episodes; Gastro-esophageal reflux disease without esophagitis; Essential (primary) hypertension Start: 09-09-2024 End: 09-21-2024 Telephone encounter Rodrickcarlin Stephenscruz MATAMOROS Work Phone: [facility] Start: 06-06-2024 End: 06-06-2024 ambulatory [facility] Work Phone: Start: 06-06-2024 End: 06-06-2024 Patient encounter procedure [facility] Work Phone: Start: 06-06-2024 End: 06-06-2024 ambulatory Karissa Ritchie MD Facility:[facility] Start: 05-23-2024 End: 05-23-2024 ambulatory Karissa Ritchie MD Facility:[facility] Start: 05-18-2024 End: 05-18-2024 ambulatory SUZANNE Bryan CHIKIS [facility] Start: 05-17-2024 End: 05-17-2024 Patient encounter procedure [facility] Pre-Admission Testing 2 [facility] - Pre Admit Comment on above: Preop examination (P rimary Dx); Hypertension, unspecified type; PONCHO (obstructive sleep apnea) Start: 05-17-2024 End: 05-17-2024 Preprocedural examination done Pm 2 [facility] Start: 05-17-2024 End: 05-17-2024 ambulatory DELTA REN [facility] Start: 05-17-2024 Encounter for other preprocedural examination AURY BECERRA [facility] Start: 04-19-2024 End: 04-19-2024 ambulatory RODRICK Irvin DEBRA [facility] Start: 04-10-2024 End: 04-10-2024 Refill Delta Ortiz MD Work Phone: [facility] Start: 03-26-2024 End: 03-26-2024 Refill Rodrick Ramires DO Work Phone: [facility] Comment on above: Insomnia, unspecifie d Start: 03-24-2024 End: 03-24-2024 Office outpatient visit 15 minutes Rodrick Ramires DO Work Phone: [facility] Comment on above: Hot flashes (Primary Dx); Hyperglycemia; Class 1 obesity due to excess calories with serious comorbidity and body mass index (BMI) of 30.0 to 30.9 in adult; Mixed hyperlipidemia; Right carpal tunnel syndrome Start: 03-15-2024 End: 03-15-2024 Refill Rodrick Ramires DO Work Phone: [facility] Comment on above: Essential (primary) hypertension Start: 03-14-2024 End: 03-14-2024 Refill Dino BARREL DRAINER [facility] Comment on above: Urticaria, unspecifi ed; Other specified depressive episodes Gastro-esophageal re flux disease without esophagitis Start: 03-08-2024 End: 03-08-2024 Office outpatient visit 25 minutes Suzanne Nguyen MD Work Phone: [facility] Comment on above: Lower urinary tract symptoms (Primary Dx); Peyronie's disease Start: 03-08-2024 End: 03-08-2024 Telephone encounter Suzanne [facility] Start: 03-08-2024 End: 03-08-2024 ambulatory RODRICK RAMIRES [facility] Start: 02-25-2024 End: 02-25-2024 Orders Only Rodrick Ramires DO Work Phone: [facility] Comment on above: Mass of upper outer quadrant of left breast (Primary Dx) Start: 02-15-2024 End: 02-15-2024 ambulatory Karissa Ritchie MD Facility:[facility] Start: 02-09-2024 End: 02-09-2024 ambulatory [facility] Start: 02-09-2024 End: 02-09-2024 ambulatory [place] [facility] Start: 02-09-2024 End: 02-09-2024 Office outpatient visit 25 minutes Rodrick Hahn DO Work Phone: [facility] Comment on above: Essential hypertensi on (Primary Dx); Mixed hyperlipidemia; Mass of upper outer quadrant of left breast; Depressive disorder; Low vitamin D level; Class 1 obesity due to excess calories with serious comorbidity and body mass index (BMI) of 30.0 to 30.9 in adult; Primary osteoarthritis of right knee Start: 01-27-2024 End: 02-09-2024 Telephone encounter Pretty Watson [facility] Start: 01-01-2024 End: 01-04-2024 [facility] Comment on above: Appointment Due Start: 12-18-2023 End: 12-21-2023 Refill Estela Espinoza CERTIFIED DENTAL ASSISTANT-FASHION MODEL Work Phone: [facility] Comment on above: Insomnia, unspecifie d Start: 12-01-2023 Refill Estela Espinoza CERTIFIED DENTAL ASSISTANT-FASHION MODEL Work Phone: [facility] Comment on above: Hyperlipidemia, unsp ecified Start: 10-30-2023 Refill Delta Harrison [facility] Start: 10-03-2023 End: 10-05-2023 [facility] Start: 10-01-2023 Orders Only Estela Espinoza CERTIFIED DENTAL ASSISTANT-FASHION MODEL Work [facility]: [facility] Start: 10-01-2023 [facility] Work Phone: [facility] Comment on above: Insomnia, unspecifie d Start: 09-30-2023 End: 10-01-2023 ambulatory RODRICK RAMIRES [facility] Start: 09-28-2023 Refill Estela Espinoza CERTIFIED DENTAL ASSISTANT-FASHION MODEL Work Phone: [facility] Comment on above: Other specified depr essive episodes; Urticaria, unspecified Gastro-esophageal re flux disease without esophagitis Start: 08-17-2023 End: 08-17-2023 ambulatory AURY BECERRA [facility] Start: 01-13-2023 End: 01-14-2023 ambulatory NARENDRANATH LAKSHMIPATHY . Facility:[facility] Start: 12-16-2022 End: 12-17-2022 ambulatory NARENDRANATH LAKSHMIPATHY . Facility:[facility] Start: 12-04-2022 End: 12-05-2022 ambulatory NARJIMMYRANATH XIOMARASHMIPATHY . Facility:[facility] Start: 10-27-2022 End: 10-28-[address] DOCTOR SOSA Facility:[facility] Start: 09-10-2022 End: 09-11-2022 ambulatory ISAIAH FREEMAN . Facility:[facility] Start: 09-04-[address] SHAN PECK . Faci lity:[facility] Start: 06-26-2022 End: 06-27-[address] SHAN PECK . Facility:[facility] Start: 04-03-2022 End: 04-04-[address] SHAN PECK . Facility:[facility] Start: 10-30-2021 End: 10-31-2021 ambulatory RODRICK RAMIRES Facility:[facility] Procedures Date Procedure Procedure Detail Performing Clinician Start: 03-24-2024 Adult depression screening assessment Rodrick Angelocruz MATAMOROS Work Phone: Start: 02-09-2024 Adult depression screening assessment Pretty Watson CMA Start: 05-25-2023 Adult depression screening assessment Estela Espinoza CERTIFIED DENTAL ASSISTANT-FASHION MODEL Work Phone: Plan of Treatment Date Care Activity Detail Author Start: 11-29-2025 DTaP,Tdap and Td Vaccines (2 - Td or Tdap) DTaP,Tdap and Td Vaccines (2 - Td or Tdap) [facility] Start: 11-29-2025 DTaP/Tdap/Td vaccine (2 - Td or Tdap) DTaP/Tdap/Td vaccine (2 - Td or Tdap) [facility] Start: 05-17-2025 Adult BMI Screening Adult BMI Screening [facility] Start: 05-17-2025 Tobacco Screening Tobacco Screening [facility] Start: 03-24-2025 Adult BMI Screening Adult BMI Screening [facility] Start: 03-24-2025 Depression Screening Depression Screening [facility] Start: 03-24-2025 Tobacco Screening Tobacco Screening [facility] Start: 03-08-2025 Adult BMI Screening Adult BMI Screening [facility] Start: 03-08-2025 Tobacco Screening Tobacco Screening [facility] Start: 02-08-2025 Adult BMI Screening Adult BMI Screening [facility] Start: 02-08-2025 Depression Screening Depression Screening [facility] Start: 02-08-2025 Tobacco Screening Tobacco Screening [facility] Start: 11-28-2024 End: 11-28-2024 Patient encounter procedure 11/28/2024 2:00 PM EDT Office Visit [facility] [address] [place] [address] Yon Lira, [address] [place] [address] Still dont have the cervical xrays from [facility] Comment on above: Still dont have the cervical xrays from [facility] Start: 09-25-2024 Tobacco Counsel[address] Tobacco Counseling [facility] Start: 08-31-2024 Annual Wellness Visit (Medicare Advantage) Annual Wellness Visit (Medicare Advantage) [facility] Start: 07-15-2024 Adult BMI Screening Adult BMI Screening [facility] Start: 07-15-2024 Tobacco Screening Tobacco Screening [facility] Start: 05-31-2024 End: 05-31-2024 Admission to same day surgery center 05/31/2024 10:00 AM EDT - 05/31/2024 10:45 AM EDT Surgery [facility] [address] [place] [id number] Suzanne Nguyen MD [address] [place] [id number] CYSTOSCOPY [01241 (CPT )] [facility] Comment on above: CYSTOSCOPY [24235 (CPT )] Start: 05-31-2024 End: 05-31-2024 Cysto calibration dilat urtl strix/stenosis CYSTOSCOPY DILATATION URETHRAL Lower urinary tract symptoms 05/31/2024 10:00 AM EDT [facility] Start: 05-31-2024 End: 05-31-2024 Cystourethroscopy CYSTOSCOPY Lower urinary tract symptoms 05/31/2024 10:00 AM EDT [facility] Start: 05-31-2024 Subsequent hospital visit by physician 05/31/2024 10:00 AM EDT Hospital Encounter [facility] [address] [place] [phone] Suzanne Nguyen MD [address] [place] [id number] [facility] Start: 05-25-2024 Depression Screening Depression Screening [facility] Start: 05-01-2024 COVID-19 Vaccine ( season) COVID-19 Vaccine ( season) [facility] Start: 05-01-2024 Influenza vaccination Influenza Vaccine [facility] Start: 03-31-2024 Influenza vaccination Flu vaccine (#1) [facility] Start: 03-25-2024 Adult BMI Follow Up Plan Adult BMI Follow Up Plan [facility] Start: 03-24-2024 End: 03-24-2024 Patient encounter procedure 03/24/2024 11:00 AM EDT Office Visit [facility] Internal [facility] - Family Medicine [address] [place] [address] Rodrick Ramires, DO [address], [facility] [place] [address] [facility] Start: 03-08-2024 End: 03-08-2024 Patient encounter procedure 03/08/2024 2:45 PM EDT Office Visit [facility] [address] [place] [address] [place] [address] [place] [phone] Suzanne Nguyen MD [facility] [place] [address] [facility] Start: 03-08-2024 End: 03-08-2024 Patient encounter procedure [facility] - M[facility]ogram DEXA Start: 02-25-2024 End: 02-24-2025 MG Breast Diagnostic Mammography diagnostic bilateral with CAD Imaging Routine Mass of upper outer quadrant of left breast Expected: 02/25/2024, Expires: 02/24/2025 [facility] Work Phone: Comment on above: Expected: 02/25/2024, Expires: Start: 02-18-2024 End: 02-18-2024 Patient encounter procedure 02/18/2024 2:20 PM EDT Office Visit [facility] [address] [place] [address] [facility] Start: 02-09-2024 End: 02-08-2025 US Breast - left limited Ultrasound breast limited left Imaging Routine Mass of upper outer quadrant of left breast Expected: 02/09/2024, Expires: 02/08/2025 [facility] Work Phone: Comment on above: Expected: 02/09/2024, Expires: Start: 05-01-2023 Influenza vaccination Influenza Vaccine [facility] Start: 2021 Screening for malignant neoplasm of colon [facility] Start: 2011 Diabetes screen [facility] screen [facility] Start: 1994 Hepatitis C screening Hepatitis C screen [facility] Start: 1991 HIV screening HIV screen [facility] Start: 1988 Depression Screen Depression Screen [facility] Start: 1986 Lipid panel Lipids [facility] Start: 1976 Tobacco Counseling Tobacco Counseling [facility] End: 09-16-2024 CT Cervical spine WO contrast [facility] Work Phone: Comment on above: 1 Occurrences starting 09/16/2024 until 09/16/2024 Cysto calibration di lat urtl strix/stenosis CYSTOSCOPY DILATATION URETHRAL Lower urinary tract symptoms [facility] Cystourethroscopy CYSTOSCOPY Low er urinary tract symptoms [facility] End: 03-24-2025 Hemoglobin A1c/Hemoglobin.total in Blood Hemoglobin A1c Lab Routine Hyperglycemia 1 Occurrences starting 03/24/2024 until 03/24/2025 [facility] Comment on above: 1 Occurrences starting 03/24/2024 until 03/24/2025 End: 03-24-2025 Testosterone [Mass/volume] in Serum or Plasma Testosterone Lab Routine Hot flashes 1 Occurrences starting 03/24/2024 until 03/24/2025 [employer] Work Phone: Comment on above: 1 Occurrences starting 03/24/2024 until 03/24/2025 End: 03-24-2025 Thyrotropin [Units/volume] in Serum or Plasma TSH Lab Routine Hot flashes Class 1 obesity due to excess calories with serious comorbidity and body mass index (BMI) of 30.0 to 30.9 in adult Mixed hyperlipidemia 1 Occurrences starting 03/24/2024 until 03/24/2025 [facility] Comment on above: 1 Occurrences starting 03/24/2024 until 03/24/2025 Immunizations Immunization Date Immunization Notes Care Provider Aidan garcia 08-19-2021 Influenza, injectabl e, Madin Sasha Canine Kidney, preservative free, quadrivalent Estela Espinoza CERTIFIED DENTAL ASSISTANT-FASHION MODEL Work Phone: [facility] 08-19-2021 influenza virus vaccine, unspecified formulation Estela Espinoza CERTIFIED DENTAL ASSISTANT-FASHION MODEL Work Phone: [facility] 12-14-2020 COVID-19, mRNA, LNP- S, PF, 100mcg/0.5mL Dose Estela Espinoza CERTIFIED DENTAL ASSISTANT-FASHION MODEL Work Phone: [facility] 12-11-2020 COVID-19, mRNA, LNP- S, PF, 100mcg/0.5mL Dose Estela Espinoza CERTIFIED DENTAL ASSISTANT-FASHION MODEL Work Phone: [facility] 11-16-2020 COVID-19, mRNA, LNP- S, PF, 100mcg/0.5mL Dose Estela Espinoza CERTIFIED DENTAL ASSISTANT-FASHION MODEL Work Phone: [facility] 11-13-2020 COVID-19, mRNA, LNP- S, PF, 100mcg/0.5mL Dose Estela Espinoza CERTIFIED DENTAL ASSISTANT-FASHION MODEL Work Phone: [facility] 08-27-2019 Influenza, injectabl e, Madin [place] Canine Kidney, preservative free, quadrivalent Estela Espinoza CERTIFIED DENTAL ASSISTANT-FASHION MODEL Work Phone: [facility] 06-13-2019 influenza, seasonal, injectable Estela Espinoza CERTIFIED DENTAL ASSISTANT-FASHION MODEL Work Phone: [facility] 06-11-2018 influenza, injectabl e, quadrivalent, preservative free Estela Espinoza CERTIFIED DENTAL ASSISTANT-FASHION MODEL Work Phone: [facility] 06-11-2018 influenza, seasonal, injectable Estela Espinoza CERTIFIED DENTAL ASSISTANT-FASHION MODEL Work Phone: [facility] 09-11-2017 Influenza, injectabl e, Madin Sasha Canine Kidney, preservative free, quadrivalent Estela Espinoza CERTIFIED DENTAL ASSISTANT-FASHION MODEL Work Phone: [facility] 11-30-2015 tetanus toxoid, redu drew diphtheria toxoid, and acellular pertussis vaccine, adsorbed Estela Espinoza CERTIFIED DENTAL ASSISTANT-FASHION MODEL Work Phone: [facility] 08-21-2015 influenza, seasonal, injectable, preservative free Estela Espinoza CERTIFIED DENTAL ASSISTANT-FASHION MODEL Work Phone[facility] 01-25-2014 hepatitis B vaccine, adult dosage Estela Espinoza CERTIFIED DENTAL ASSISTANT-FASHION MODEL Work Phone[facility] 09-26-2013 hepatitis B vaccine, adult dosage Estela Espinoza CERTIFIED DENTAL ASSISTANT-FASHION MODEL Work Phone: [facility] 07-27-2013 hepatitis B vaccine, adult dosage Estela Espinoza CERTIFIED DENTAL ASSISTANT-FASHION MODEL Work Phone: [facility] [employer] [facility] Payers Date Payer Category Payer Unknown [id number] 2021 Medicare ANTHEM MEDICARE ANTHEM MEDICARE ADVANTAGE [id number] 2021-Present [phone] [address] [place] [address] [id number] 2021 Medicare HMO [facility] [id number] 2021 Medicare [id number] 2015 Unknown [id number] [id number] .[id number] 2015 Unknown [id number] 1.2.840.294450.1.13.239 .2.7.3.506591.315 2015 Worker's Compensation 1975 Unknown [id number] 2.16.840.1.386410.3.579 .2.647 1975 Unknown [id number] 2.16.840.1.346520.3.579 .2.593 1975 Unknown [id number] 2.16.840.1.459678.3.579 .2.593 1976 Unknown [id number] 2.16.840.1.241914.3.579 .2.593 1976 Unknown [id number] 2.16.840.1.538964.3.579 .2.593 1976 Unknown [id number] 2.16.840.1.330085.3.579 .2.593 1976 Unknown [id number] 2.16.840.1.683527.3.579 .2.593 1976 Unknown [id number] 2.16.840.1.084409.3.579 .2.593 1976 Unknown [id number] 2.16.840.1.792199.3.579 .2.593 1976 Unknown [id number] 2.16.840.1.749177.3.579 .2.593 1976 Unknown [id number] 2.16.840.1.070658.3.579 .2.593 1976 Unknown [id number] 2.16.840.1.012016.3.579 .2.176 1976 Unknown [id number] 2.16.840.1.300455.3.579 .2.1286 1976 Unknown [id number] 2.16.840.1.465006.3.579 .2.1286 1976 Unknown [id number] 2.16.840.1.080108.3.579 .2.1286 1976 Unknown [id number] 2.16.840.1.060190.3.579 .2.1286 1976 Unknown [id number] 2.16.840.1.778147.3.579 .2.1286 1976 Unknown [id number] 2.16.840.1.697719.3.579 .2.1286 1976 Unknown [id number] 2.16.840.1.516320.3.579 .2.1286 1976 Unknown [id number] 2.16.840.1.620639.3.579 .2.1286 1976 Unknown [id number] 2.16.840.1.314481.3.579 .2.1286 1976 Unknown [id number] 2.16.840.1.477170.3.579 .2.1286 1976 Unknown [id number] 2.16.840.1.762110.3.579 .2.196 1976 Unknown [id number] 2.16.840.1.110934.3.579 .2.196 1976 Unknown [id number] 2.16.840.1.764271.3.579 .2.196 1976 Unknown [id number] 2.16.840.1.488093.3.579 .2.175 1976 Unknown [id number] 2.16.840.1.273286.3.579 .2.173 1959 Worker's Compensation [id number] Private Health Insurance [facility] [id number] Social History Date Type Detail Facility [facility] ever smoked [facility] [employer] [facility] Start: 1975 Sex Assigned At Male F [facility] Start: 03-25-2023 End: 01-13-2024 Tobacco smoking status NHIS [facility] smoked tobacco [facility] Start: 03-25-2023 End: 01-13-2024 Tobacco use and exposure User of smokeless tobacco [facility] History of tobacco use Snuff User [facility] Start: 07-15-2023 End: 05-17-2024 Alcoholic beverage intake Current non-drinker of alcohol (finding) [facility] Start: 10-11-2020 End: 05-17-[address] [facility] Start: 10-11-2020 End: 05-17-[address] [facility] How hard is it for y ou to pay for the very basics like food, housing, medical care, and heating Not hard at all [facility] Start: 04-05-2015 Sex Male (finding) [facility] Start: 01-30-2023 Gender identity Identifies as male gender (finding) [facility] Start: 01-30-2023 Sexual orientation Heterosexual (fin ding) [facility] History of tobacco use Chews Tobacco [facility] Start: 08-15-2024 Alcoholic beverage intake Ex-drinker (finding) [facility] NEGATED: Highlighted rowStart: ARNULFOF History of tobacco use Passive smoker [facility] Clinical Notes 04-03-2022 to 09-21-2024 Telephone Encounter - Sayra Torrez - 09/21/2024 10:09 AM ESTTelephone Encounter - Sayra Lore - 09/21/2024 10:09 AM ESTTele[facility] 09[facility]21/[facility]24 10:09 AM EST Note Date & Type Note Facility 09-21-2024 Miscellaneous Notes He is due for a recheck possibly a wellness too Sent mychart msg 3rd reach out. Another message in chart documented in this encounter [facility] 09-21-2024 Telephone encounter Note He is due for a recheck possibly a wellness too [facility] 09-21-2024 Telephone encounter Note Sent [facility]chart msg [facility] 09-21-2024 Telephone encounter Note 3rd reach out. Another message in chart [facility] 09-21-2024 Miscellaneous Notes Rx sent in. He is due for a recheck possibly a wellness too documented in this encounter [facility] [employer] [facility] 09-21-2024 Telephone encounter Note Rx sent in. He is due for a recheck possibly a wellness too [facility] 09-09-2024 Miscellaneous Notes is due for Medicare wellness anytime Sent mychart msg LM on VM 3rd ccontact documented in this encounter [facility] 09-09-2024 Telephone encounter Note is due for Medicare wellness anytime [facility] 09-09-2024 Telephone encounter Note Sent mychart msg [facility] 09-09-2024 Telephone encounter Note LM on VM [facility] 09-09-2024 Telephone encounter Note 3rd ccontact [facility] 09-09-2024 Miscellaneous Notes Rx sent in. He is due for Medicare wellness anytime documented in this encounter [facility] 09-09-2024 Telephone encounter Note Rx sent in. He is due for Medicare wellness anytime [facility] [employer] [facility] 05-17-2024 Instructions Dayanara Broussard RN - 05/17/2024 9:00 AM EDT Preoperative Education Checklist- General Surgery date: 05/31/24 Surgery time: 10a Arrival time: 8a 1. Bring a photo ID and your insurance card with you the day of surgery. You will check in at the main lobby of the [facility]- registration desk is straight ahead as soon as you walk in. Tell them you are here for surgery. 2. If you have a Living Will/Durable Power of [facility] that is not on file here, please bring a copy the day of surgery. 3. Please shower/bathe the night before surgery with the provided soap or wipes. Do not shower the morning of surgery- you will do use wipes when you arrive here at the hospital before getting into your surgical gown. Do not shave the area of your procedure for 2 days prior to your surgery. 4. NO powder, lotion, perfume/cologne, aftershave, make-up, deodorant, or hair products after you have bathed. 5. NO nail paraguayan/acrylic on at least one finger. If you are having a hand, wrist or foot surgery then all nail paraguayan and artificial/acrylic nails must be removed from that hand or foot. 6. Avoid ALL Aspirin and non-steroidal anti-inflammatory drugs and certain vitamins (Ibuprofen, Advil, Aleve, Excedrin, Meloxicam, Celebrex, fish/krill oil, etc.) for 7 days prior to surgery as instructed by your surgeon and/or your prescribing doctor. Tylenol IS ALLOWED. If you are on Ticlid, Xarelto, Eliquis, Pradaxa, Plavix or Coumadin, please check with your prescribing doctor for instructions for when to stop them. 7. If you use an inhaler, continue to use it routinely. 8. Nothing to eat or drink (not even water, gum, mints, or hard candy!) AFTER midnight prior to your surgery. 9. Take only medications that you are instructed to on the morning of surgery with a TINY SIP OF WATER. 10. Choose a responsible adult that will be able to drive you home when you are discharged from your hospital stay for your surgery and can stay with you in your home for 24 hours after your procedure. You must NOT drive any vehicle or operate any machinery for 24 hours after surgery. 11. When you dress for your appointment, please wear loose fitting clothing that is appropriate to accommodate your surgical area procedure. BRING WITH YOU ANY DEVICES YOU MAY NEED: TABATHA hose, ice machine, sling/swath, brace or special shoe, oversized zip-up or button up shirt, CPAP machine if staying overnight. 12. Do NOT wear jewelry, watches, or any piercings or metal for surgery- leave these valuables and money at home. 13. Do NOT wear contact lenses for surgery- glasses are okay if needed. 14. The anesthesiologist will talk with you the day of surgery and will ask you to sign a Consent Form. 15. Refrain from smoking or any type of tobacco use for at least 8 hours and marijuana for 24 hours prior to arrival for your surgery. 16. If a GREEN BLOOD band is given to you, please bring it with you for the day of surgery. 17. Notify your surgeon if you develop any illness before your surgery. 18. If you are staying overnight, please DO NOT BRING your home medications with you. 19. If you have any questions prior to surgery, please call the Preadmission Testing office at [phone], Mon.-Fri. 7 a.m.-3 p.m. Leave a voicemail if needed. Pre-Surgery Instructions: Medication Instructions albuterol (PROVENTIL HFA;VENTOLIN HFA) 90 mcg/actuation inhaler Take morning of procedure if needed baclofen (LIORESAL) 20 mg tablet Stop taking 0 days prior to procedure calcium citrate (CALCITRATE) 200 mg (950 mg) tablet Stop taking 0 days prior to procedure cetirizine (ZyrTEC) 10 mg tablet Take morning of procedure if needed cholecalciferol, vitamin D3, 2,000 units tablet Stop taking 0 days prior to procedure diclofenac (VOLTAREN) 75 mg EC tablet Stop taking 1 week prior to procedure hydrOXYzine (ATARAX) 10 mg tablet Stop taking 0 days prior to procedure ketoconazole (NIZORAL) 2 % shampoo Stop taking 0 days prior to procedure lisinopril-hydroCHLOROthiazide (PRINZIDE,ZESTORETIC) 20-12.5 mg per tablet Stop taking 0 days prior to procedure mirtazapine (REMERON) 15 mg tablet Stop taking 0 days prior to procedure omeprazole (PriLOSEC) 20 mg capsule Take morning of procedure oxybutynin XL (DITROPAN-XL) 10 mg 24 hr tablet Stop taking 0 days prior to procedure oxyCODONE-acetaminophen (PERCOCET) 5-325 mg per tablet Stop taking 0 days prior to procedure pregabalin (LYRICA) 50 mg capsule Stop taking 0 days prior to procedure rosuvastatin (CRESTOR) 10 mg tablet Stop taking 0 days prior to procedure STOOL SOFTENER 100 mg capsule Stop taking 0 days prior to procedure tamsulosin (FLOMAX) 0.4 mg capsule Stop taking 0 days prior to procedure tiZANidine (ZANAFLEX) 4 mg tablet Stop taking 0 days prior to procedure venlafaxine XR (EFFEXOR-XR) 150 mg 24 hr capsule Stop taking 0 days prior to procedure documented in this encounter [facility] 03-24-2024 History of Presen t illness Narrative Subjective Patient ID: Avel Funes is a 48 y.o. male. He has been having hot flashes off and on for a couple years. It happens about once a month. Lasts for about 45 minutes. He will sometimes eat candy and it will go away and other times it resolves on its own. He was told by his dad that he is probably going through male menopause. He has a history of prediabetes /impaired fasting glucose. He does not have any palpitations. He has not passed out. There was no altered mental status. He has not had any recent infections. He does take opioids chronically for chronic pain. The following portions of the patient's history were reviewed and updated as appropriate: allergies, current medications, past family history, past medical history, past social history, past surgical history, problem list, and medication reconciliation was completed including current medication and post discharge medication. Review of Systems Constitutional: Negative. Respiratory: Negative. Cardiovascular: Negative. Endocrine: Negative. Musculoskeletal: Positive for arthralgias, back pain and neck pain. Neurological: Positive for numbness (Right arm; he had an EMG done and showed carpal tunnel syndrome). Psychiatric/Behavioral: Positive for dysphoric mood. The patient is nervous/anxious. Objective Physical Exam Constitutional: General: He is not in acute distress. Appearance: He is obese. HENT: Head: Normocephalic. Neck: Thyroid: No thyroid mass, thyromegaly or thyroid tenderness. Cardiovascular: Rate and Rhythm: Normal rate and regular rhythm. Pulses: Normal pulses. Heart sounds: Normal heart sounds. No murmur heard. Pulmonary: Effort: Pulmonary effort is normal. No respiratory distress. Breath sounds: Normal breath sounds. Musculoskeletal: Cervical back: Neck supple. Lymphadenopathy: Cervical: No cervical adenopathy. Skin: General: Skin is warm and dry. Neurological: General: No focal deficit present. Mental Status: He is alert and oriented to person, place, and time. Psychiatric: Attention and Perception: Attention normal. Mood and Affect: Mood is depressed. Speech: Speech normal. Behavior: Behavior normal. Behavior is cooperative. Thought Content: Thought content normal. Cognition and Memory: Cognition normal. Judgment: Judgment normal. Assessment/Plan Avel was seen today for hot flashes and referral / right arm numbness. Diagnoses and all orders for this visit: Hot flashes - Testosterone; Future - TSH; Future Check testosterone level and TSH. Hyperglycemia - Hemoglobin A1c; Future Check A1c Class 1 obesity due to excess calories with serious comorbidity and body mass index (BMI) of 30.0 to 30.9 in adult - TSH; Future He is obese. We will check underlying cause such as hypothyroidism Mixed hyperlipidemia - TSH; Future Check TSH Right carpal tunnel syndrome - Cock-up Splint He was given a prescription for cock-up splint. I recommended that he go back to the neurosurgeon to discuss surgical intervention since he is bothered by it. documented in this encounter [facility] 03-08-2024 Miscellaneous Notes Please schedule for cysto with possible urethral dilation, mac, Greer Diagnosis lower urinary tract symptoms documented in this encounter [facility] 03-08-2024 Telephone encounter Note Please schedule for cysto with possible urethral dilation, mac, Greer Diagnosis lower urinary tract symptoms [facility] 03-08-2024 History of Presen t illness Narrative Images from the original note were not included. [address] [place] [address] [address] [facility] [address] Patient: Avel Funes Date of : 1975 Encounter Date: 03/08/2024 History of Present Illness: Chief Complaint: Follow up The patient is a 48 y.o. male, an established patient, and is here for followup with his . He had previously seen my partner with some lower urinary tract symptoms. He had been tried on tamsulosin which had only marginal improvement. Was then given oxybutynin extended release in conjunction with the tamsulosin. He ran out the medication but does not believe that helped much. Has decreased urinary stream as well as double voiding and postvoid dribbling. Did have multiple prior instrumentations with catheters at time of surgery. Also with prior neck surgery in 2020. His symptoms have been going on for the last year. In addition he had what sounds like a penile fracture by history with hitting his 's pubic bone during intercourse. He had pain with that. He developed a plaque on the dorsum of the penis which is palpable. Has a natural dorsal curve but that is no worse than baseline. Still continues to get some discomfort in the area the plaque with erection. This occurred about 6 months ago.. Summary of old records: Urinalysis today: No results for input(s): EXTPOCURCO , EXTPOCURCH , EXTPOCAPP , EXTPOCURBS , EXTPOCURBIL , EXTPOCUKET , EXTPOCUSPG , EXTPOCUHGB , EXTPOCUPRO , EXTPOCUURO , EXTPOCULEU , EXTPOCUNIT , EXTPOCUWBC , EXTPOCUBLD , EXTPOCURBC , EXTPOCUCRY , EXTPOCUBAC , EXTPOCUTREP , EXTPOCUPH , EXTPOCULEE in the last 72 hours. Last BUN and creatinine: Lab Results Component Value Date BUN 19 02/09/2024 Lab Results Component Value Date CREATININE 1.22 02/09/2024 Last PSA: No results found for: PSA Lab Results Component Value Date PROSTATICSP 0.38 04/22/2023 Additional Lab/Culture results: None Imaging Reviewed during this Office Visit: None (Results were independently reviewed by physician and radiology report verified) Past Medical, Family, and Social History Update: The following portions of the patient's history were reviewed and updated as appropriate: allergies, current medications, past family history, past medical history, past social history, past surgical history and problem list. Past Medical History: Diagnosis Date Anxiety Anxiety disorder Cervicalgia Fibromyalgia GERD (gastroesophageal reflux disease) Hypertension Impingement syndrome of right shoulder region PONCHO (obstructive sleep apnea) PONCHO (obstructive sleep apnea) Palpitation RAD (reactive airway disease) Past Surgical History: Procedure Laterality Date CERVICAL VERTEBRAE EXCISION COLONOSCOPY N/A 09/28/2019 Performed by Freddie Bender DO at [facility] EGD N/A 03/02/2019 Performed by Freddie Bender DO at [facility] KNEE ARTHROSCOPY PALATE / UVULA BIOPSY / EXCISION uvula removed SHOULDER ARTHROSCOPY 1997 & 2015 VASECTOMY VASECTOMY Family History Problem Relation Age of Onset Fibromyalgia Mother Lupus Mother Asthma Father Arthritis Father Hypertension Father Uterine cancer Sister Colon cancer Maternal Grandmother ADD / ADHD Son Breast cancer Neg Hx Current Outpatient Medications Medication Sig Dispense Refill albuterol (PROVENTIL HFA;VENTOLIN HFA) 90 mcg/actuation inhaler Inhale 2 puffs every 6 (six) hours as needed for wheezing. baclofen (LIORESAL) 20 mg tablet TAKE 1/2-1 TABLET BY MOUTH THREE TIMES A DAY calcium citrate (CALCITRATE) 200 mg (950 mg) tablet TAKE 2 TABLETS BY MOUTH 3 TIMES A DAY 540 tablet 1 cetirizine (ZyrTEC) 10 mg tablet Take 1 tablet (10 mg total) by mouth in the morning. cholecalciferol, vitamin D3, 2,000 units tablet cholecalciferol (vitamin D3) 50 mcg (2,000 unit) tablet TAKE 1 TABLET BY MOUTH EVERY DAY diclofenac (VOLTAREN) 75 mg EC tablet Take 1 tablet (75 mg total) by mouth in the morning and 1 tablet (75 mg total) in the evening. Take with meals. hydrOXYzine (ATARAX) 10 mg tablet TAKE 1 TABLET BY MOUTH EVERY DAY IN THE EVENING 90 tablet 1 ketoconazole (NIZORAL) 2 % shampoo APPLY TOPICALLY 3 TIMES A WEEK lisinopril-hydroCHLOROthiazide (PRINZIDE,ZESTORETIC) 20-12.5 mg per tablet TAKE 1 TABLET BY MOUTH EVERY DAY 90 tablet 1 mirtazapine (REMERON) 15 mg tablet take 1 tablet by mouth every day 90 tablet 0 omeprazole (PriLOSEC) 20 mg capsule TAKE 1 CAPSULE BY MOUTH EVERY DAY 90 capsule 1 oxyCODONE-acetaminophen (PERCOCET) 5-325 mg per tablet Take 1 tablet by mouth every 4 (four) hours as needed for pain. pregabalin (LYRICA) 50 mg capsule Take 1 capsule (50 mg total) by mouth in the morning and 1 capsule (50 mg total) before bedtime. rosuvastatin (CRESTOR) 10 mg tablet take 1 tablet by mouth every day 90 tablet 3 STOOL SOFTENER 100 mg capsule TAKE 1 CAPSULE BY MOUTH EVERY DAY 30 capsule 5 tamsulosin (FLOMAX) 0.4 mg capsule Take 1 capsule (0.4 mg total) by mouth nightly. tiZANidine (ZANAFLEX) 4 mg tablet Take 1 tablet (4 mg total) by mouth. venlafaxine XR (EFFEXOR-XR) 150 mg 24 hr capsule TAKE 1 CAPSULE BY MOUTH EVERY DAY 90 capsule 1 No current facility-administered medications for this visit. (All medications reviewed and updated by provider since last office visit or hospitalization) Allergies: Ibuprofen, Penicillins, Prednisone, and [place] Tobacco History: Social History Tobacco Use Smoking Status Never Smokeless Tobacco Current Types: Snuff (If patient a smoker, smoking cessation counseling offered) Social History: Social History Substance and Sexual Activity Alcohol Use No Alcohol/week: 0.0 standard drinks of alcohol Review of Systems: General: Negative for chills and fever. Cardiovascular: Negative for chest pain and shortness of breath. Gastrointestinal: Negative for constipation, diarrhea, nausea, and vomitting. -per HPI Physical Exam: BP 114/80 Pulse 78 Ht 172.7 cm (5' 8 ) Wt 90.3 kg (199 lb) BMI 30.26 kg/m Assessment and Plan: Avel was seen today for follow-up. Diagnoses and all orders for this visit: Lower urinary tract symptoms Peyronie's disease Problem List Musculoskeletal and Integument Peyronie's disease Overview 07/15/23 Having pain no curvature. Acute phase plaque. Already on Voltaren can not add Mobic on top of this. Recommend abstaining from intercourse until pain resolves. Will readdress at follow-up 03/08/24: persistent pain with erection. Reassured that this will typically resolve with a little more time Genitourinary Lower urinary tract symptoms - Primary Overview 07/15/23 Again discussed bladder irritants I think the T is really bothering him. However will plan to start Ditropan and continue Flomax. Follow-up in 6 weeks Start flomax f/u 6 weeks Pvr 33mL IPSS 23/4 Lower urinary tract symptoms without any substantial improvement with tamsulosin or with the addition of oxybutynin extended release. Plan for cysto under anesthesia with possible dilation should a stricture be present Follow-up: Suzanne Nguyen MD This note was created with the assistance of a speech recognition program. While intending to generate a timely document that accurately reflects the content of the visit, no guarantee can be provided that every grammatical or spelling mistake has been or will be identified or corrected. Thank you for your understanding. documented in this encounter [facility] Chumen Wenwen 02-09-2024 History of Presen t illness Narrative Subjective Patient ID: Avel Funes is a 48 y.o. male. Adan presents for CV recheck. He is taking his medications and not having any side effects. He felt a lump in his left breast 2 weeks ago. It is tender. He doesn't have any nipple discharge. No family history of breast cancer. He is using venlafaxine and mirtazepine with benefit and no side effects. He is happy with the treatment. He would also like a handicap parking placard. He has advanced arthritis of his right knee. He was told he needs a knee replacement but is too young. It swells up at times and cannot walk far. The following portions of the patient's history were reviewed and updated as appropriate: allergies, current medications, past family history, past medical history, past social history, past surgical history, problem list, and medication reconciliation was completed including current medication and post discharge medication. Review of Systems Constitutional: Negative. HENT: Negative. Eyes: Negative. Respiratory: Negative. Cardiovascular: Negative. Gastrointestinal: Negative. Endocrine: Negative. Genitourinary: Negative. Musculoskeletal: Positive for arthralgias. Skin: Negative. Neurological: Negative. Psychiatric/Behavioral: Positive for dysphoric mood (doing well on medication). Objective Physical Exam Constitutional: General: He is in acute distress. Appearance: He is obese. HENT: Head: Normocephalic. Cardiovascular: Rate and Rhythm: Normal rate and regular rhythm. Pulses: Normal pulses. Heart sounds: Normal heart sounds. No murmur heard. Pulmonary: Effort: Pulmonary effort is normal. No respiratory distress. Breath sounds: Normal breath sounds. No wheezing, rhonchi or rales. Musculoskeletal: Cervical back: Neck supple. Right lower leg: No edema. Left lower leg: No edema. Lymphadenopathy: Cervical: No cervical adenopathy. Skin: General: Skin is warm. Neurological: General: No focal deficit present. Mental Status: He is alert and oriented to person, place, and time. Gait: Gait (slow) normal. Psychiatric: Attention and Perception: Attention normal. Mood and Affect: Mood and affect normal. Speech: Speech normal. Behavior: Behavior normal. Behavior is cooperative. Thought Content: Thought content normal. Cognition and Memory: Cognition and memory normal. Judgment: Judgment normal. Assessment/Plan Avel was seen today for hyperlipidemia and hypertension. Diagnoses and all orders for this visit: Essential hypertension - Comprehensive metabolic panel; Future BP at goal. Check CMP. Mixed hyperlipidemia - Lipid panel; Future Check lipid panel Mass of upper outer quadrant of left breast - Ultrasound breast limited left; Future I suspect a lipoma clinically but will check an US. May need to see a surgeon for excision Depressive disorder Stable. Continue current regimen Low vitamin D level - Vitamin D 25 hydroxy; Future Check vitamin D level Class 1 obesity due t excess calories with serious comorbidity and body mass index (BMI) of 30.0 to 30.9 in adult He is barely obese with clothing. Likely just overweight but be that as it may he would benefit from weight loss, diet and exercise but is limited due to MS issues. Primary osteoarthritis of right knee He has severe OA of right knee. It impairs his ability to ambulate long distances >200' so will authorize handicap parking placard. Other orders - tamsulosin (FLOMAX) 0.4 mg capsule; Take 1 capsule (0.4 mg total) by mouth nightly. documented in this encounter [facility] [employer] [facility] 01-27-2024 Miscellaneous Notes Patient needs a renewal for handicap placard I do not see where he had handicap parking placard in the past. Did you give him 1? Handicap Placard made today documented in this encounter [facility] 01-27-2024 Telephone encounter Note Patient needs a renewal for handicap placard [facility] 01-27-2024 Telephone encounter Note I do not see where he had handicap parking placard in the past. Did you give him 1? [facility] 01-27-2024 Telephone encounter Note Handicap Placard made today [facility] 01-01-2024 Miscellaneous Notes Care Coordination Outreach performed to coordinate overdue appointments, testing, and/or follow-up care: Yes Audit/Outreach Date: January 01, 2024 Reason: Chronic Condition Appt Method: Telephone and MyChart Outreach Attempt: Second Outcome: Left Message and letter sent Next PCP Appointment: N/A Tests/Referrals Pended: N/A Resources/Education Provided: Additional Comments: Unable to reach patient by telephone to schedule appointment. Letter sent. documented in this encounter [facility] 01-01-2024 Telephone encounter Note Care Coordination Outreach performed to coordinate overdue appointments, testing, and/or follow-up care: Yes Audit/Outreach Date: January 01, 2024 Reason: Chronic Condition Appt Method: Telephone and MyChart Outreach Attempt: Second Outcome: Left Message and letter sent Next PCP Appointment: N/A Tests/Referrals Pended: N/A Resources/Education Provided: Additional Comments: Unable to reach patient by telephone to schedule appointment. Letter sent. [facility] 12-18-2023 Miscellaneous Notes Rx sent in. Patient is due for recheck of depression. He usually sees Estela documented in this encounter [facility] 12-18-2023 Telephone encounter Note Rx sent in. Patient is due for recheck of depression. He usually sees Estela [facility] 10-01-2023 History of Presen t illness Narrative The OARRS/MAPPS database was reviewed today and found to be appropriate. No indication of medication diversion, or non compliance. ROSEY Purdy 10/01/23 [id number] documented in this encounter [facility] 12-04-2022 Note CONSULTATION CONSULTATION DATE: 12/04/2022 TO: [...] our patients to inform us about any jacd-tlb-mipxuis medications or herbal remedies/nutritional supplements/alternative remedies. 2. [...] options with their primary care provider. [facility] 10-27-2022 Note PROCEDURE: XR KNEE R [...] authenticated by: GRETA NAYLOR Date: 2022-10-27 15:00 [facility] 09-10-2022 Note CONSULTATION PROCEDURE DATE: 09/10/2022 [...] three months or sooner if needed. 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 [facility] codes for diagnosis M50.221, M50.222. PLAN: We will increase his Percocet for the winter months to 5/325 q.i.d. We will preauthorize for bilateral cervical trigger point injections to mitigate his cervical spams. Upon approval, the patient will be called to the office to receive those injections. The patient does agree with the plan of care. [facility] 04-03-2022 Note CONSULTATION CONSULTATION DATE: 04/03/2022 HISTORY OF PRESENT ILLNESS: This is a 46-year-old male who is being seen at our pain clinic for chronic neck pain and is a [facility] case. Patient did sustain a neck injury in 2014 due to a lifting incident. He was last seen on 12/26/2021 which, at that time, we were attempting to preauthorize for cervical medial branch blocks and a subsequent rhizotomy. That was declined by [facility] regardless of the pathology and the clinical [...] upper extremities. Blunted bilateral brachioradialis reflexes. IMPRESSION: [facility] codes M50.221, M50.222. PLAN: We will add diclofenac 75 mg b.i.d. to help control his inflammatory pain. Lyrica will be increased to 150 mg b.i.d. No changes in his Percocet dose at this time. Heat application was encouraged as well as adding magnesium and a multivitamin. At this time, we will attempt to medically manage him, pending any further [facility] approval to move forward with procedural interventions. Patient is in agreement with this plan. We will see him back in early May for follow up. 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 [facility] Diagnosis Insomnia, unspecified documented in this encounter [facility]* Diagnosis Hyperlipidemia, unspecified documented in this encounter [facility]* Diagnosis Essential hypertension- Primary Unspecified essential hypertension Mixed hyperlipidemia Mass of upper outer quadrant of left breast Depressive disorder Depressive disorder, not elsewhere classified Low vitamin D level Class 1 obesity due to excess calories with serious comorbidity and body mass index (BMI) of 30.0 to 30.9 in adult Primary osteoarthritis of right knee documented in this encounter [facility]* Diagnosis Other specified depressive episodes Urticaria, unspecified documented in this encounter [facility]* Diagnosis Gastro-esophageal reflux disease without esophagitis documented in this encounter [facility]* Diagnosis Insomnia, unspecified documented in this encounter [facility]* Diagnosis Mass of upper outer quadrant of left breast- Primary [facility] Diagnosis Lower urinary tract symptoms- Primary Other symptoms involving urinary system Peyronie's disease [facility]* Diagnosis Urticaria, unspecified Other specified depressive episodes [facility]* Diagnosis Gastro-esophageal reflux disease without esophagitis [facility]* Diagnosis Essential (primary) hypertension Unspecified essential hypertension [facility]* Diagnosis Hot flashes- Primary Hyperglycemia Other abnormal glucose Class 1 obesity due to excess calories with serious comorbidity and body mass index (BMI) of 30.0 to 30.9 in adult Mixed hyperlipidemia Right carpal tunnel syndrome Carpal tunnel syndrome [facility] Diagnosis Lower urinary tract symptoms- Primary Other symptoms involving urinary system Preop examination- Primary Unspecified pre-operative examination Hypertension, unspecified type PONCHO (obstructive sleep apnea) Obstructive sleep apnea (adult) (pediatric) Preop examination Unspecified pre-operative examination Hypertension, unspecified type PONCHO (obstructive sleep apnea) Obstructive sleep apnea (adult) (pediatric) Lower urinary tract symptoms Other symptoms involving urinary system [facility] on filedocumented in this encounter [facility] Summary Purpose Family History Relationship Condition Age at Onset Recorded Date/T astrid father Malignant neoplasm Unknown Advance Directives Advance Directive Response Recorded Date/ Time Advance Directives No June 06, 2024 5:03pm Chief Complaint and Reason for Visit Chief Complaint Tooth and jaw pain Reason for Referral Specialty Diagnoses / Procedures Referred By Contac t Referred To Contact Radiology Diagnoses Cervical spondylosis with radiculopathy 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 Procedures CT CERVICAL SPINE WO CONTRAST Yon Lira, DO [address] [place] [address] Referral ID Status Reason Start Date Expiration Date Visits Re quested Visits Authorized [id number] Closed 08/29/2024 08/15/2025 1 1 Specialty Diagnoses / Procedures Referred By Contac t Referred To Contact Diagnoses Preop examination Hypertension, unspecified type PONCHO (obstructive sleep apnea) Procedures ECG 12 lead Delta Ren MD [address] [place] [id number] Referral ID Status Reason Start Date Expiration Date V isits Requested Visits Authorized [id number] Pending Review 05/10/2024 05/10/2025 1 1 Additional Source Comments (unrecognized sect ion and content) No Status Records FoundNo Status Records FoundNo Status Records FoundNo Status Records FoundNo Status Records FoundNo Status Records FoundNo Status Records FoundNo Status Records FoundNo Status Records FoundNo Status Records FoundNo Status Records Found INFORMATION SOURCE (unrecogn ized section and content) DATE CREATED AUTHOR 04/06/2019 [facility] DATE CREATED AUTHOR AUTHOR'S ORGANIZ ATION 11/09/2021 [facility] DATE CREATED AUTHOR AUTHOR'S ORGANIZ ATION 12/27/2021 [facility] DATE CREATED AUTHOR AUTHOR'S ORGANIZ ATION 01/14/2023 [facility] DATE CREATED AUTHOR AUTHOR'S ORGANIZ ATION 10/01/2023 [facility] DATE CREATED AUTHOR AUTHOR'S ORGANIZ ATION [facility] DATE CREATED AUTHOR AUTHOR'S ORGANIZ ATION 02/10/2024 [facility] DATE CREATED AUTHOR AUTHOR'S ORGANIZ ATION 05/21/2024 [facility] DATE CREATED AUTHOR AUTHOR'S ORGANIZ ATION 06/15/2024 [facility] DATE CREATED AUTHOR AUTHOR'S ORGANIZ ATION 08/17/2024 [facility] DATE CREATED AUTHOR AUTHOR'S ORGANIZ ATION 09/19/2024 [facility] Teams (unrecognized sec tion and content) Team Status: Active Member Role Status Dates Rodrick Ramires DO Primary Care Provider Active Team Status: Inactive Member Role Status Dates Em Appiah APRN Attending Provider Active Start: June 06, 2024 End: June 06, 2024 Rodrick Ramires DO Primary Care Provider Active Start: June 06, 2024 End: June 06, 2024 Pvc Monitor Relationship Specialty Start Date End Date Rodrick Ramires DO [address] [place] [address] PCP - General Family Medicine 10/16/16 Pvc Monitor Relationship Specialty Start Date End Date Rodrick Ramires DO PCP - General Family Medicine 07/18/19 Pvc Monitor Relationship Specialty Start Date End Date Rodrick Ramires DO [address] [place] [address] PCP - General Family Medicine 10/16/16 Pvc Monitor Relationship Specialty Start Date End Date Rodrick Ramires DO [address] [place] [address] PCP - General Family Medicine 10/16/16 Pvc Monitor Relationship Specialty Start Date End Date Rodrick Ramires DO [address] [place] [address] PCP - General Family Medicine 10/16/16 Pvc Monitor Relationship Specialty Start Date End Date Rodrick Ramires DO [address] [place] [address] PCP - General Family Medicine 10/16/16 Pvc Monitor Relationship Specialty Start Date End Date Rodrick Ramires DO [address] [place] [address] PCP - General Family Medicine 10/16/16 Pvc Monitor Relationship Specialty Start Date End Date Rodrick Ramires DO [address] [place] [address] PCP - General Family Medicine 10/16/16 Pvc Monitor Relationship Specialty Start Date End Date Rodrick Ramires DO [address] [place] [address] PCP - General Family Medicine 10/16/16 Pvc Monitor Relationship Specialty Start Date End Date Rodrick Ramires DO [address] [place] [address] PCP - General Family Medicine 10/16/16 Pvc Monitor Relationship Specialty Start Date End Date Rodrick Ramires DO [address] [place] [address] PCP - General Family Medicine 10/16/16 Pvc Monitor Relationship Specialty Start Date End Date Rodrick Ramires DO [address] [place] [address] PCP - General Family Medicine 10/16/16 Pvc Monitor Relationship Specialty Start Date End Date DebraRodrick DO [address] [facility], [place] [address] PCP - General Family Medicine 10/16/16 Goals (unrecognized section and content) Goals may be documented in a n alternate sectionNot on filedocumented as of this encounterNot on filedocumented as of this encounterNot on filedocumented as of this encounterNot on filedocumented as of this encounterNot on filedocumented as of this encounterNot on filedocumented as of this encounterNot on filedocumented as of this encounterNot on filedocumented as of this encounterNot on filedocumented as of this encounterNot on filedocumented as of this encounterNot on filedocumented as of this encounterNot on filedocumented as of this encounterNot on filedocumented as of this encounterNot on filedocumented as of this encounterNot on filedocumented as of this encounterNot on filedocumented as of this encounterNot on filedocumented as of this encounterNot on filedocumented as of this encounterNot on filedocumented as of this encounterNot on filedocumented as of this encounterNot on filedocumented as of this encounterNot on filedocumented as of this encounterNot on filedocumented as of this encounterNot on filedocumented as of this encounterNot on filedocumented as of this encounterNot on filedocumented as of this encounter Reason for Visit (unrecogniz ed section and content) Reason Comments Med Refill Specialty Diagnoses / Procedures Referred By Meri t Referred To Contact Radiology Diagnoses Cervical spondylosis with radiculopathy 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 Procedures CT CERVICAL SPINE WO CONTRAST Yon Lira DO [address] [facility] [address] [place] [address] Referral ID Status Reason Start Date Expiration Date Visits Re quested Visits Authorized [id number] Closed 08/29/2024 08/15/2025 1 1 Reason Onset Date Comments Appointment Due 01/01/2024 Reason Onset Date Comments Med Refill 10/10/2024 Reason Comments Hyperlipidemia Hypertension Reason Comments Follow-up follow up / prev see n fumo Reason Onset Date Comments Med Refill 03/14/2024 Reason Comments Hot Flashes referral / right arm numbness FOR RECORDS PERTAINING TO PATIENTS WHO ARE [...] BE BASED ON THE PRIMARY CLINICAL RECORDS. [employer] provides no warranty or guarantee of the accuracy or completeness of information in this document.
--- NOTE | 2024-11-02 13:11 | PM.CN ---
Consult Note: HPI Data of Consult Patient: known to practice within the last 3 years Requesting Physician: Anaid Phelps NP Primary Care Provider: GOLDEN RICHARDSON Consult Narrative Reason for consult: neck pain Narrative: 49yom who presents for assessment. longstanding neck and bilateral ue pain. imaging shows multilevel stenosis and spondylosis. continues in series of provider directed home exercises >6 weeks, without significant benefit. uses percocet, diclofenac and lyrica. denies adverse med side effects. pain today 8/10 increasing to 10/10 with everything. pt noticing increased numbness tingling and weakness to BUE since last visit, folllowing with NS for evaluation. unfortunately [facility] denied prior cervical SHEFALI request, was not able to complete bilateral C5-6 TFESI. pending further reconsideration. cc:: CC: Anaid Phelps NP Review of Systems ROS Status of ROS 10 or more systems reviewed and unremarkable except as noted in history and below Musculoskeletal Reports: neck pain PFSH PFSH Medical History (Updated 05/18/24 @ 14:03 by Eliz Swift RN) Osteoarthritis ?M19.90 - Unspecified osteoarthritis, unspecified site (ICD-10) Carpal tunnel syndrome ?G56.00 - Carpal tunnel syndrome, unspecified upper limb (ICD-10) Acid reflux ?K21.9 - Gastro-esophageal reflux disease without esophagitis (ICD-10) Enlarged prostate ?N40.0 - Benign prostatic hyperplasia without lower urinary tract symptoms (ICD-10) Asthma ?J45.909 - Unspecified asthma, uncomplicated (ICD-10) HTN (hypertension) ?I10 - Essential (primary) hypertension (ICD-10) Surgical History History of vasectomy ?Z98.52 - Vasectomy status (ICD-10) History of myringotomy ?Z98.890 - Other specified postprocedural states (ICD-10) History of shoulder surgery ?Z98.890 - Other specified postprocedural states (ICD-10) Hx of tonsillectomy ?Z90.89 - Acquired absence of other organs (ICD-10) History of knee surgery ?Z98.890 - Other specified postprocedural states (ICD-10) History of neck surgery ?Z98.890 - Other specified postprocedural states (ICD-10) Meds Home Medications and Allergies Home Medications ?Medication ?Instructions ?Recorded ?Confirmed ?Type atorvastatin 10 mg tablet 10 mg PO DAILY 05/13/23 05/23/24 History cetirizine 10 mg tablet 10 mg PO DAILY PRN allergy symptoms 05/13/23 05/23/24 History cholecalciferol (vitamin D3) 25 25 mcg PO DAILY 05/13/23 05/23/24 History mcg (1,000 unit) capsule (Vitamin D3) docusate sodium 100 mg capsule 100 mg PO DAILY 05/13/23 05/23/24 History hydroxyzine HCl 10 mg tablet 10 mg PO DAILY 05/13/23 05/23/24 History lisinopril 20 1 tab PO DAILY 05/13/23 05/23/24 History mg-hydrochlorothiazide 12.5 mg tablet omeprazole 20 mg capsule,delayed 20 mg PO DAILY 05/13/23 05/23/24 History release tamsulosin 0.4 mg capsule (Flomax) 0.4 mg PO DAILY 05/13/23 05/23/24 History venlafaxine 150 mg 150 mg PO DAILY 05/13/23 05/23/24 History capsule,extended release 24 hr (Effexor XR) diclofenac sodium 75 mg 75 mg PO BID PRN pain #60 tabs 04/27/24 05/23/24 Rx tablet,delayed release oxycodone-acetaminophen 5 mg-325 See Rx Instructions .Route 04/27/24 05/23/24 Rx mg tablet (Percocet) .COMPLEX PRN pain #130 tabs oxycodone-acetaminophen 5 mg-325 See Rx Instructions .Route 07/26/24 Rx mg tablet (Percocet) .COMPLEX PRN pain #130 tabs tizanidine 4 mg tablet 4 mg PO TID PRN muscle spasticity 07/26/24 Rx #90 tabs pregabalin 100 mg capsule (Lyrica) See Rx Instructions .Route 08/01/24 Rx .COMPLEX #120 caps oxycodone-acetaminophen 5 mg-325 See Rx Instructions .Route 08/26/24 Rx mg tablet (Percocet) .COMPLEX PRN pain #130 tabs pregabalin 100 mg capsule (Lyrica) See Rx Instructions .Route 08/26/24 Rx .COMPLEX #120 caps pregabalin 100 mg capsule (Lyrica) See Rx Instructions .Route 09/26/24 Rx .COMPLEX #120 caps Allergies Allergy/AdvReac Type Severity Reaction Status Date / Time corn Allergy Vomiting Verified 05/23/24 09:22 Penicillins Allergy Hives Verified 05/23/24 09:22 ibuprofen AdvReac Nausea Verified 05/23/24 09:22 prednisone AdvReac Palpitation Verified 05/23/24 09:22 s Exam Constitutional Documenting provider has reviewed patient's vital signs: yes Common normals: no apparent distress, oriented x3, healthy appearing, alert and well nourished General appearance: cooperative HENMT Common normals: normocephalic, hearing grossly normal bilaterally and moist oral mucous membranes Head and scalp: normocephalic Eye Common normals: PERRL Pupil: PERRL Neck & C-Spine Common normals: full ROM General: normal visual inspection Cervical spine: pain with cervical ROM, cervical spine tenderness and paracervical muscle tenderness Other: positive facet loading positive spurlings strength 4/5 in BUE decreased sensation C4,5,6 Chest Common normals: inspection of chest normal Respiratory Common normals: normal respiratory effort, no retractions and no use of accessory muscles Neuro Common normals: oriented x3, CN's II-XII intact bilaterally, moves all extremities, no focal motor deficits, no sensory deficits noted and deep tendon reflexes 2+ bilaterally Sensorium/orientation: alert Motor exam: strength 5/5 throughout and no movement abnormalities noted Psych Common normals: mental status grossly normal, thought process normal, cooperative, affect normal, speech normal and activity/motor behavior normal Speech: normal speech Thought process: normal thought process Results Additional Findings Additional findings: If on a controlled substance or opioids, I have checked an [place] report on this patient and there are no aberrancies noted in the prescribing history.??If on a controlled substance or opioid a drug screen was completed and reviewed within the last year, and if there has not been a drug screen completed we ordered one today to monitor higher risk, state monitored pain medication use. As part of providing excellent, safe, comprehensive care, the following was completed at our patient's visit: 1. A medication reconciliation and review to ensure accurate knowledge of current/active medications, including asking our patients to inform us about any [id number] medications or herbal remedies/nutritional supplements/alternative remedies. 2. A review to specifically ensure our patients have had annual screening for screening for depression, screening for tobacco use, and screening for unhealthy alcohol use. For concerning screenings had a discussion with the patient, provided patient education, and recommended follow-up with primary care provider when appropriate. If patient noted with a risk of falling, they received education on strength, gait, and balance training to prevent future risk of falling. Portions of this note may have been carried over from the previous visit and updated as appropriate. Please note this office utilizes paper charting in addition to the electronic medical record. A list of current medications, vitals, and PMH is available there as the clinical staff outside of myself do not have access to [facility] charting during the clinic day operations. As part of providing quality comprehensive care the current medications, vitals, and PMH were reviewed in the paper chart. 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 pt does express hes not interested in additional surgery but has a f/u on 01/09/25 with NS to discuss plan of care continue HEP as tolerated continue current medications, reporting mild pain relief and functional improvement without side effects f/u after NS consultation.
== END 2024-11-02 12:37 | disposition home or self-care (01) ==
PROVIDERS: PCP Family Medicine; Visit Provider Nurse Practitioner
DX: M50.221 Other cervical disc displacement at C4-C5 level (principal); M50.222 Other cervical disc displacement at C5-C6 level; Z79.891 Long term (current) use of opiate analgesic
CPT/HCPCS: G0463

== ENCOUNTER 2025-01-26 13:07 | Outpatient (OUT) | payer OTHER, SELFPAY ==
--- OUTSIDE RECORDS SUMMARY | 2025-01-17 11:20 | XMS_ITS | Encounter Summary ---
Author Organization [facility] Address [address] [facility] [address] Care Team Providers Care Chairman & Chief Executive Officer Name Role Phone Rodrick Ramires MD Primary Care Provider [phone] Reason for Visit * Reason Comments Ear Problem 3 week check ears Encounter Details Date Type Department Care Team (Late st Contact Info) Description 01/17/2025 11:20 AM EDT Office Visit [facility] [address] [facility] [address] [place] [id number] Marleni Love MD [address] [address] Chronic myringitis of right ear (Primary Dx); Dysfunction of right eustachian tube; Foreign body of right ear, initial encounter Social History Tobacco Use Types Packs/Day Years Used Date Smoking Tobacco: Never Smokeless Tobacco: Current Chew Alcohol Use Standard Drinks/Week Comments Not Currently 0 (1 standard drink = 0.6 oz pur e alcohol) Sex and Gender Information Value Date Recorded Sex Assigned at Not on file Legal Sex Male 7:34 PM EDT Gender Identity Not on file Sexual Orientation Not on file documented as of this encounter Last Filed Vital Signs Vital Sign Reading Time Taken Comments Blood Pressure 123/84 01/17/2025 11:19 AM EDT Pulse 85 01/17/2025 11:19 AM EDT Temperature - - Respiratory Rate - - Oxygen Saturation - - Inhaled Oxygen Concentration - - Weight 93 kg (205 lb) 01/17/2025 11:19 AM EDT Height 170.2 cm (5' 7 ) 01/17/2025 11:19 AM EDT Body Mass Index 32.11 01/17/2025 11:19 AM EDT documented in this encounter Progress Notes * Marleni Love MD - 01/17/2025 11:20 AM EDT Images from the original note were not included. Subjective Patient ID: Lonnie Kenny is a 49 y.o. male who presents for Ear Problem (3 week check ears ) Pt states HL resolved. No family history on file. 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 Class 1 obesity due to excess calories with serious comorbidity and body mass index (BMI) of 30.0 to 30.9 in adult 02/09/2024 Contusion of knee 11/11/2017 Depressive disorder ([facility]) 10/02/2017 Dizziness 12/23/2024 Dysfunction of right eustachian tube 12/23/2024 Electrocardiogram abnormal 07/01/2022 Dysphagia 02/25/2019 Epididymitis 07/18/2019 Esophagitis 03/02/2019 Essential hypertension ([facility]) 11/16/2018 Fibromyalgia 08/12/2016 Hypotension due to hypovolemia 11/29/2024 Impingement syndrome of shoulder region 08/07/2016 Knee joint effusion 11/11/2017 Low vitamin D level 02/23/2020 Lower urinary tract symptoms 05/06/2023 Mixed hyperlipidemia ([facility]) 08/28/2020 Non-suppurative otitis media 12/23/2024 Obstructive sleep apnea syndrome 2016 Palpitations 07/01/2022 Osteoarthritis 12/17/2016 Peyronie's disease 07/15/2023 Polyp of sigmoid colon 09/28/2019 Post-traumatic osteoarthritis of both knees 03/25/2023 Primary osteoarthritis of right knee 07/03/2016 Rectal hemorrhage 09/16/2019 Sensorineural hearing loss, bilateral 12/23/2024 Shoulder pain 08/12/2016 Snuff user 11/29/2024 Sprain of knee 11/11/2017 Other specified injuries of right shoulder and upper arm, sequela 12/23/2024 Sprain of shoulder and upper arm 03/25/2023 Tear of medial meniscus of knee 07/20/2018 Resolved Ambulatory Problems Diagnosis Date Noted No Resolved Ambulatory Problems Past Medical History: Diagnosis Date Anemia, unspecified Asthma, unspecified asthma severity, unspecified whether complicated, unspecified whether persistent ([facility]) Ear problems Right chronic serous otitis media Sinusitis Past Surgical History: Procedure Laterality Date KNEE SURGERY SHOULDER ARTHROSCOPY 3 times TYMPANOSTOMY TUBE PLACEMENT VASECTOMY Allergies Allergen Reactions Prednisone Hives, Other, Shortness of breath, Swelling, Palpitations and Unknown All related Jittery -mainly with IV doses, heart rate goes up with oral. prednisone Butterfield Oil Diarrhea and Nausea And Vomiting Other Reaction(s): Other: See Comments Other reaction(s): Other: See Comments Ibuprofen Other Reaction(s): GI Disturbance, GI Upset, Other (See Comments), Unknown, vomiting Other reaction(s): GI Disturbance Penicillins Hives and Rash Current Outpatient Medications on File Prior to Visit Medication Sig Dispense Refill albuterol (2.5 MG/3ML) 0.083% nebulizer solution albuterol HFA 90 mcg/act inhaler Inhale 2 puffs every 6 (six) hours if needed atorvastatin (Lipitor) 10 MG tablet baclofen (Lioresal) 10 MG tablet calcium citrate (Calcitrate) 950 (200 Ca) MG tablet Take 1,900 mg by mouth in the morning and 1,900mg in the evening and 1,900 mg before bedtime. cetirizine (ZyrTEC) 10 MG tablet Take 10 mg by mouth in the morning. cholecalciferol (Vitamin D-3) 50 MCG (2000 UT) tablet Take by mouth Daily diazePAM (Valium) 10 MG tablet TAKE 1 TABLET BY MOUTH PRIOR TO PROCEDURE Docusate Sodium (DSS) 100 MG capsule Take 1 capsule by mouth Daily hydrOXYzine HCl (Atarax) 10 MG tablet meclizine (Antivert) 12.5 MG tablet Take 12.5 mg by mouth 3 (three) times a day as needed mirtazapine (Remeron) 15 MG tablet Take 15 mg by mouth in the morning. omeprazole (PriLOSEC) [address] capsule TAKE 1 CAPSULE BY MOUTH EVERY DAY IN THE MORNING BEFORE BREAKFAST oxyCODONE-acetaminophen (Percocet) 5-325 MG tablet Take 1 tablet by mouth 3 (three) times a day as needed pregabalin (Lyrica) 50 MG capsule Take 50 mg by mouth in the morning and 50 mg before bedtime. traZODone (Desyrel) 50 MG tablet 1 (one) time each day at the same time venlafaxine XR (Effexor XR) 150 MG 24 hr capsule Take 150 mg by mouth in the morning. No current facility-administered medications on file prior to visit. Objective Last Recorded Vitals Vitals: 01/17/25 1119 BP: 123/84 Pulse: 85 ENT Physical Exam Ear Ear comments: RT - TIP&P. Pushed in slightly. Polyp resolved with crust around base of tube debrided. Tube pulled out a bit. Patient ID: Lonnie Kenny is a 49 y.o. male. Procedures Foreign body removed from the right ear canal under micro with a forecep and pick Assessment/Plan Diagnoses and all orders for this visit: Chronic myringitis of right ear Dysfunction of right eustachian tube Foreign body of right ear, initial encounter Infection and polyp resolved. Tube position adjusted and crust debrided from base. F/U one year if doing well documented in this encounter Plan of Treatment Upcoming Encounters Date Type Department Care Team (Late st Contact Info) Description 01/30/2025 1:20 PM EDT Office Visit [facility] [address] [place] [address] Luciana Escoto MD [address] [place] [address] documented as of this encounter Visit Diagnoses Diagnosis Chronic myringitis of right ear- Primary Dysfunction of right eustachian tube Foreign body of right ear, initial encounter Hypoglycemia Hypoglycemia, unspecified documented in this encounter Care Teams Chairman & Chief Executive Officer Relationship Specialty Start Date End Date Rodrick Ramires MD [address] [facility], [place] [address] PCP - General Family Medicine 12/27/24 documented as of this encounter
--- OUTSIDE RECORDS SUMMARY | 2025-01-26 13:10 | XMS_ITS | Encounter Summary ---
Author Organization [facility] tem Address [id number] [address] [place] [address] Care Team Providers Care Regulatory Affairs Analyst Name Role Phone KeylaRodrick Irvin MATAMOROS Primary Care Provider + [phone] Reason for Visit * Reason Comments Med Refill Encounter Details Date Type Department Care Team (Late st Contact Info) Description 06/08/2022 Refill [facility] Internal Medicine - Family Medicine [address] [place] [address] Estela Espinoza, SPED TEACHER-PROTECTIVE OFFICER [address] [facility] [address] [place] [address] Insomnia, unspecified Social History Tobacco Use Types Packs/Day Years Used Date Smoking Tobacco: Never Smokeless Tobacco: Current Chew Alcohol Use Standard Drinks/Week Comments No 0 (1 standard drink = 0.6 oz pur e alcohol) Childcare Answer Date Recorded Childcare Unknown 02/09/2019 Employment Answer Date Recorded Employment Unknown 02/09/2019 Purpose - Life Answer Date Recorded Purpose and direction in life Unknown Sex and Gender Information Value Date Recorded Sex Assigned at Male 01/30/2023 9:11 PM EDT Legal Sex Male 11:53 AM EDT Gender Identity Male 01/30/2023 9:11 PM EDT Sexual Orientation Straight 01/30/2023 9: 11 PM EDT documented as of this encounter Plan of Treatment Upcoming Encounters Date Type Department Care Team (Late st Contact Info) Description 01/30/2025 10:15 AM EDT Appointment [facility] Cardiovascular [address] [place] [phone] Rodrick Ramires, DO [address], [place] [address] 02/06/2025 11:15 AM EDT Office Visit [facility] Internal Medicine - Family Medicine [address] [place] [phone] Rodrick Ramires, [address], [place] [address] 02/09/2025 1:30 PM EDT Office Visit [facility] Cardiology [address] [facility] [address] [place] [phone] Benoit Sinha MD [address] [place] [address] documented as of this encounter Visit Diagnoses Diagnosis Insomnia, unspecified documented in this encounter Care Teams Regulatory Affairs Analyst Relationship Specialty Start Date End Date Rodrick Ramires DO [address], [place] [address] PCP - General Family Medicine 10/16/16 documented as of this encounter
--- OUTSIDE RECORDS SUMMARY | 2025-01-26 13:10 | XMS_ITS | Clinical Summary ---
Author Organization [facility] Address [address] [place] [id number] Care Team Providers Care Precision Agriculture Specialist Name Role Phone Rodrick Ramires DO Primary Care Provider Allergies Active Allergy Reactions Criticality Noted Date Comments [place] Other: See Comments 07/03/2016 Ibuprofen GI Upset 07/03/2016 Penicillin Rash 07/03/2016 Prednisone Swelling 07/03/2016 Medications venlafaxine XR (EFFEXOR XR) 150 mg 24 hr capsule Take 150 mg by mouth once daily. Active oxyCODONE-aceta minophen (PERCOCET) 5-325 mg tablet Take 1 tablet by mouth three times daily. Active pregabalin (LYRICA ORAL) Take by mouth. A ctive famotidine (PEPCID AC ORAL) Take by mouth. Activ e docusate sodium (COLACE) 100 mg capsule Take 1 capsule by mouth twice daily. 28 capsule 9 Active witch soledad (ANN MARIE GRACE,) 50 % padm Apply 1 application to affected area as needed. 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 Social History Tobacco Use Types Packs/Day Years Used Date Smoking Tobacco: Never Smokeless Tobacco: Current Chew Alcohol Use Standard Drinks/Week Comments Not Asked 0 (1 standard drink = 0.6 oz pur e alcohol) PHQ-2 Answer Date Recorded PHQ-2 Score 0 07/23/2019 Sex and Gender Information Value Date Recorded Sex Assigned at Not on file Legal Sex Male 9:47 AM EST Gender Identity Not on file Sexual Orientation Not on file Last Filed Vital Signs Vital Sign Reading Time Taken Comments Blood Pressure 127/90 04/06/2019 8:49 PM EDT Pulse 89 04/06/2019 8:49 PM EDT Temperature 36.8 C (98.2 F) 04/06/2019 9:03 PM EDT Respiratory Rate 12 04/06/2019 9:03 PM EDT Oxygen Saturation 100% 04/06/2019 8:49 PM EDT Inhaled Oxygen Concentration - - Weight 85.3 kg (188 lb) 04/06/2019 6:15 PM EDT Height 172.7 cm (5' 8 ) 04/06/2019 6:15 PM EDT Body Mass Index 28.59 04/06/2019 6:15 PM EDT Plan of Treatment Health Maintenance Due Date Last Done Comments Anxiety Screening 1994 Depression Screening 1994 HIV Screening 1994 Hepatitis C Screening 1994 Hepatitis B Vaccine (1 of 3 - 19+ 3-dose series) [address] Colonography 2021 Cologuard (FIT-DNA) 2021 Colonoscopy 2021 Colorectal Cancer Screening 2021 Fecal Occult Blood 2021 Sigmoidoscopy 2021 Diabetes Screening 04/06/2022 04/06/2019 Covid-19 Vaccine ( - season) 2024 Influenza Vaccine (Season Ended) 2025 06/11/20 18, 08/21/2015 DTaP,Tdap,Td Vaccine (2 - Td or Tdap) 11/29/202508/2015 Procedures Procedure Name Priority Date/Time Associated Diagnosis Comments COMPRE META PANL STAT 04/06/2019 6:38 PM EDT from Last 3 Months or Most Recently Relevant to Health Maintenance Results * COMPREHENSIVE METABOLIC PANEL (AK,AV,EU,FV,HL,ALYSON,MM,SP) (04/06/2019 6:38 PM EDT) Protein, Total 7.5 6.3 - 8.0 g/dL 04/06/2019 7:24 PM EDT [facility] Albumin 4.8 3.9 - 4.9 g/dL 04/06/2019 7:24 PM [facility] Calcium 9.8 8.5 - 10.2 mg/dL 04/06/2019 7:24 PM [facility] Bilirubin, Total 0.4 0.2 - 1.3 mg/dL 04/06/2019 7:24 PM [facility] Alkaline Phosphatase 57 38 - 113 U/L 04/06/2019 7:24 PM [facility] AST Unable to assay. Specimen hemolyzed. 14 - 40 U/L 04/06/2019 7:24 PM [facility] Glucose 95 74 - 99 mg/dL 04/06/2019 7:24 PM [facility] Comment: The [place] Diabetes Association (ADA) provides guidance for cutoff [...] Standards of Medical Care in Diabetes 2016, [place] [employer] Association. Diabetes Care. 2016.39(Suppl 1). BUN 9 9 - 24 mg/dL 04/06/2019 7:24 PM [facility] Creatinine 1.03 0.73 - 1.22 mg/dL 04/06/2019 7:24 PM [facility] Sodium 137 136 - 144 mmol/L 04/06/2019 7:24 PM [facility] Potassium 4.4 3.7 - 5.1 mmol/L 04/06/2019 7:24 PM [facility] Comment: Specimen is slightly hemolyzed. Results are unaffected by this level of hemolysis. The performance characteristics of this test were determined by [facility]'s [facility]. It has not been cleared or approved by the FDA. [facility] is regulated under CLIA as qualified to perform high complexity testing. This test is used for clinical purposes. It should not be regarded as investigational or for research. Chloride 97 97 - 105 mmol/L 04/06/2019 7:24 PM EDT [facility] CO2 28 22 - 30 mmol/L 04/06/2019 7:24 PM EDT [facility] Anion Gap 12 9 - 18 mmol/L 04/06/2019 7:24 PM [facility] ALT Unable to assay. Specimen hemolyzed. 10 - 54 U/L 04/06/2019 7:24 PM [facility] eGFR- >60 04/06/2019 7:24 PM [facility] eGFR-All Other Races >60 . 04/06/2019 7:24 PM [facility] Comment: eGFR (Estimated GFR) Units of measure: [...] eGFR may not accurately reflect actual GFR. Blood specimen (specimen) BLOOD SPECIMEN / Unknown 04/06/2019 6:38 PM EDT 04/06/2019 7:09 PM EDT Suyapa Henriquez PA-C [facility] Final Result [facility] [id number] [facility] [place] [address], [facility] from Last 3 Months or Most Recently Relevant to Health Maintenance Insurance [employer] HMO [facility] Care Teams Precision Agriculture Specialist Relationship Specialty Start Date End Date Rodrick Ramires DO [address] [facility] [place] [phone] PCP - General Family Medicine 04/06/19
--- OUTSIDE RECORDS SUMMARY | 2025-01-26 13:10 | XMS_ITS | Encounter Summary ---
Author Organization [employer] s tem Address [id number] [address] [place] [address] Care Team Providers Care Radiologist Diagnostic Name Role Phone KeylaRodrick Irvin MATAMOROS Primary Care Provider + [phone] Encounter Details Date Type Department Care Team (Late st Contact Info) Description 01/13/2025 [facility] [address] [place] [phone] Pretty Watson CMA Social History Tobacco Use Types Packs/Day Years Used Date Smoking Tobacco: Never Smokeless Tobacco: Current Snuff Alcohol Use Standard Drinks/Week Comments No 0 (1 standard drink = 0.6 oz pur e alcohol) [facility] Utilities Answer Date Recorded In the past 12 months has [employer] electric, gas, oil, or water company threatened to shut off services in your home? No 11/28/2024 AUDIT-C Answer Date Recorded Q1: How often do you have a drink containing alcohol? Never 12/15/2024 Q2: How many drinks containi ng alcohol do you have on a typical day when you are drinking? Patient does not drink Q3: How often do you have si x or more drinks on one occasion? Never 12/15/2024 Overall Financial Resource Strain (CARDIA) Answe r Date Recorded How hard is it for you to pa y for the very basics like food, housing, medical care, and heating? Not hard at all 03/23/2024 PHQ-2 Answer Date Recorded Total Score 0 12/15/2024 [facility] of Occupat ional Health - Occupational Stress Questionnaire Answer Date Recorded Do you feel stress - tense, restless, nervous, or anxious, or unable to sleep at night because your mind is troubled all the time - these days? To some extent 12/15/2024 Exercise Vital Sign Answer Date Recorde d On average, how many days pe r week do you engage in moderate to strenuous exercise (like a brisk walk)? 0 days 12/15/2024 On average, how many minutes do you engage in exercise at this level? 0 min 12/15/2024 PRAPARE - Transportation Answer Date Re corded In the past 12 months, has l ack of transportation kept you from medical appointments or from getting medications? No 10/31 In the past 12 months, has l ack of transportation kept you from meetings, work, or from getting things needed for daily living? No 11/28/2024 Housing Instability Answer Date Recorde d Are you worried or concerned that in the next two months you may not have stable housing that you own, rent or stay in as a part of a household? No 11/28/2024 Childcare Answer Date Recorded Do problems getting child ca re make it difficult for you to work or study? No 12/15/2024 Employment Answer Date Recorded Do you need help finding a [facility] career center and/or a training program? No 12/15/2024 Hunger Screening Answer Date Recorded Within the past 12 months we worried whether our food would run out before we got money to buy more. Never True 12/15/2024 Within the past 12 months th e food we bought just didn't last and we didn't have money to get more. Never True 12/15/2024 Purpose - Life Answer Date Recorded Purpose and direction in life Unknown Sex and Gender Information Value Date Recorded Sex Assigned at Male 01/30/2023 9:11 PM EDT Legal Sex Male 11:53 AM EDT Gender Identity Male 01/30/2023 9:11 PM EDT Sexual Orientation Straight 01/30/2023 9: 11 PM EDT documented as of this encounter Miscellaneous Notes * Telephone Encounter - Pretty Watson CMA - 01/13/2025 9:08 AM EDT Patient's called and he is still having SOB and chest tightness when exerting himself . Sometimes has SOB while resting. Where do you want to go from here with the patient? * Telephone Encounter - Rodrick Ramires DO - 01/13/2025 9:08 AM EDT He probably should have an EKG and a stress test * Telephone Encounter - Pretty Watson CMA - 01/13/2025 9:08 AM EDT Left message and asked to call back on where he would like to have these done at? * Telephone Encounter - Pretty Watson CMA - 01/13/2025 9:08 AM EDT Please send orders for this to [facility]. * Telephone Encounter - Rodrick Ramires DO - 01/13/2025 9:08 AM EDT Please set up a regular stress test with Dr. Bender at the [facility] documented in this encounter Plan of Treatment Upcoming Encounters Date Type Department Care Team (Late st Contact Info) Description 01/30/2025 10:15 AM EDT Appointment [facility] - Cardiovascular [address] [place] [phone] Rodrick Ramires DO [address] [facility] [place] [address] 02/06/2025 11:15 AM EDT Office Visit [facility] Internal Medicine - Family Medicine [address] [place] [address] Rodrick Ramires DO [address], [place] [address] 02/09/2025 1:30 PM EDT Office Visit [facility] Cardiology [address] [place] [address] Benoit Sinha MD [address] [place] [address] documented as of this encounter Goals Goal Patient Goal Type Associated Problems Recent Progress Patient-Stated? Author Home with self care General Yes Emmy Oates, RN Note: Evaluation of progress towards goal: Patient plans to return home with self care. documented as of this encounter Visit Diagnoses Not on filedocumented in this encounter Additional Health Concerns Assessment Noted Time PHQ-9 Depression Total Score: 0 12/16/19 25 1:05 PM EDT A Body Mass Index follow-up plan has been documented for the patient 03/25/2023 2:33 PM EDT documented as of this encounter Care Teams Radiologist Diagnostic Relationship Specialty Start Date End Date Rodrick Ramires DO [address], [place] [address] PCP - General Family Medicine 10/16/16 documented as of this encounter
--- OUTSIDE RECORDS SUMMARY | 2025-01-26 13:10 | XMS_ITS | Encounter Summary ---
Author Organization [employer] s tem Address [id number] [address] [place] [address] Care Team Providers Care Wildlife Science Professor Name Role Phone Rodrick Ramires DO Primary Care Provider + [phone] Encounter Details Date Type Department Care Team (Late st Contact Info) Description 12/14/2024 [facility] [address] [place] [phone] Misty Sun, ASBESTOS BRAKE LINING FINISHER Social History Tobacco Use Types Packs/Day Years Used Date Smoking Tobacco: Never Smokeless Tobacco: Current Snuff Alcohol Use Standard Drinks/Week Comments No 0 (1 standard drink = 0.6 oz pur e alcohol) [facility] Utilities Answer Date Recorded In the past 12 months has e electric, gas, oil, or water company threatened [...] Answer Date Recorded Total Score 0 12/15/2024 [facility] [place] of Occupat ional Health - Occupational Stress [...] Recorded Do you need help finding a [facility] career center and/or a training program? [...] PM EDT documented as of this encounter Functional Status * Audit-C Score Answer Date of Assessment Author 0 12/15/2024 1:32 PM EDT Rodrick Ramires, DO * Question Answer Date of Assessment Author Q1: How often do you have a drink containing alcohol? Never 12/15/2024 1:32 PM EDT Rodrick Ramires DO Q2: How many drinks containing alcohol do you have on a typical day when you are drinking? Patient does not drink 12/15/2024 1:32 PM EDT Rodrick Ramires DO Q3: How often do you have six or more drinks on one occasion? Never 12/15/2024 1:32 PM EDT Rodrick Ramires DO documented as of this encounter Miscellaneous Notes * Telephone Encounter - Misty Sun CMA - 12/14/2024 1:28 PM EDT Pt called wanted to know if you would put orders in for a chest x ray , and fasting labs ? So he can get them done before his appt tomorrow * Telephone Encounter - Rodrick Ramires DO - 12/14/2024 1:28 PM EDT No. I will see him at the appointment and then I will decide if and what he needs done * Telephone Encounter - Misty Sun CMA - 12/14/2024 1:28 PM EDT Called left vm documented in this encounter Plan of Treatment Upcoming Encounters Date Type Department Care Team (Late st Contact Info) Description 01/30/2025 10:15 AM EDT Appointment [facility] - Cardiovascular [address] [place] [phone] Rodrick Ramires DO [address] [place] [address] 02/06/2025 11:15 AM EDT Office Visit [facility] Internal Medicine - Family Medicine [address] [place] [address] Rodrick Ramires DO [address], [place] [address] 02/09/2025 1:30 PM EDT Office Visit [facility] [address] [place] [phone] Benoit Sinha MD [address] [place] [address] documented as of this encounter Goals Goal Patient Goal Type Associated Problems Recent Progress Patient-Stated? Author Home with self care General Yes Emmy Oates, RN Note: Evaluation of progress towards goal: Patient plans to return home with self care. documented as of this encounter Visit Diagnoses Not on filedocumented in this encounter Additional Health Concerns Assessment Noted Time PHQ-9 Depression Total Score: 0 03/24/20 24 11:09 AM EDT A Body Mass Index follow-up plan has been documented for the patient 03/25/2023 2:33 PM EDT documented as of this encounter Care Teams Wildlife Science Professor Relationship Specialty Start Date End Date Rodrick Ramires DO [address], [facility] [place] [address] PCP - General Family Medicine 10/16/16 documented as of this encounter
--- OUTSIDE RECORDS SUMMARY | 2025-01-26 13:10 | XMS_ITS | Encounter Summary ---
Author Organization [employer] Address [id number] [address] [place] [address] Care Team Providers Care Spring Assembler Name Role Phone Rodrick Ramires DO Primary Care Provider [phone] Reason for Visit * Reason Comments Med Refill Encounter Details Date Type Department Care Team (Late st Contact Info) Description 05/05/2022 Refill [facility] Internal Medicine - Family Medicine [address] [place] [address] Rodrick Ramires DO [address] [facility] [place] [address] Constipation, unspecified Social History Tobacco Use Types Packs/Day [...] Info) Description 01/30/2025 10:15 AM EDT Appointment [facility] - Cardiovascular [address] [place] [address] Rodrick Ramires, DO [address], [place] [address] 02/06/2025 11:15 AM EDT Office Visit [facility] Internal Medicine - Family Medicine [address] [place] [phone] Rodrick Ramires, [address], [place] [address] 02/09/2025 1:30 PM EDT Office Visit [facility] Cardiology [address] [facility] [address] [place] [address] Benoit Sinha MD [address] [place] [address] documented as of this encounter Visit Diagnoses Diagnosis Constipation, unspecified documented in this encounter Care Teams Spring Assembler Relationship Specialty Start Date End Date Rodrick Ramires DO [address], [place] [address] PCP - General Family Medicine 10/16/16 documented as of this encounter
--- OUTSIDE RECORDS SUMMARY | 2025-01-26 13:10 | XMS_ITS | Encounter Summary ---
Author Organization [employer] Address [id number] [address] [place] [address] Care Team Providers Care Grid Casting Machine Operator Helper Name Role Phone SelmaRodrick montelongo Irvin MATAMOROS Primary Care Provider [phone] Encounter Details Date Type Department Care Team (Late st Contact Info) Description 01/08/2024 [facility] [address] [place] [phone] Abbie Knutson, CHARLI Social History Tobacco Use Types Packs/Day Years Used Date Smoking Tobacco: Never Smokeless Tobacco: Current Snuff Alcohol Use Standard Drinks/Week Comments No 0 (1 standard drink = 0.6 oz pur e alcohol) PHQ-2 Answer Date Recorded Total Score 0 05/25/2023 Childcare Answer Date Recorded Childcare Unknown 02/09/2019 Employment Answer Date Recorded Employment Unknown 02/09/2019 Hunger Screening Answer Date Recorded Within the past 12 months we worried whether our food would run out before we got money to buy more. Never True 05/25/2023 Within the past 12 months th e food we bought just didn't last and we didn't have money to get more. Never True 05/25/2023 Purpose - Life Answer Date Recorded Purpose and direction in life Unknown Sex and Gender Information Value Date Recorded Sex Assigned at Male 01/30/2023 9:11 PM EDT Legal Sex Male 11:53 AM EDT Gender Identity Male 01/30/2023 9:11 PM EDT Sexual Orientation Straight 01/30/2023 9: 11 PM EDT documented as of this encounter Miscellaneous Notes * Telephone Encounter - Abbie Knutson CMA - 01/08/2024 10:57 AM EDT Patient called stating that moving forward he would like to see Dr Nguyen in [place] as it is closer to home. * Telephone Encounter - Lenny Ortiz MD - 01/08/2024 10:57 AM EDT That has no problem documented in this encounter Plan of Treatment Upcoming Encounters Date Type Department Care Team (Late st Contact Info) Description 01/30/2025 10:15 AM EDT Appointment [facility] - Cardiovascular [address] [place] [phone] Rodrick Ramires, DO [address], [place] [address] 02/06/2025 11:15 AM EDT Office Visit [facility] Internal Medicine - Family Medicine [address] [phone] Rodrick Ramires, DO [address] [facility] [place] [address] 02/09/2025 1:30 PM EDT Office Visit [facility] [address] [place] [phone] Benoit Sinha MD [address] [place] [address] documented as of this encounter Visit Diagnoses Not on filedocumented in this encounter Additional Health Concerns Assessment Noted Time PHQ-9 Depression Total Score: 0 05/25/20 23 1:07 PM EDT A Body Mass Index follow-up plan has been documented for the patient 03/25/2023 2:33 PM EDT documented as of this encounter Care Teams Grid Casting Machine Operator Helper Relationship Specialty Start Date End Date Rodrick Ramires DO [address], [facility] [place] [address] PCP - General Family Medicine 10/16/16 documented as of this encounter
--- OUTSIDE RECORDS SUMMARY | 2025-01-26 13:10 | XMS_ITS | Encounter Summary ---
Author Organization [employer] s [employer] Address [id number] [address] [place] [address] Care Team Providers Care Auditing Control Clerk Name Role Phone Keyla Rodrick Bryan DO Primary Care Provider + [phone] Encounter Details Date Type Department Care Team (Late st Contact Info) Description 12/19/2024 [facility] [address] [place] [phone] Maulik Kulkarni CMA Social History Tobacco Use Types Packs/Day Years Used Date Smoking Tobacco: Never Smokeless Tobacco: Current Snuff Alcohol Use Standard Drinks/Week Comments No 0 (1 standard drink = 0.6 oz pur e alcohol) [facility] Utilities Answer Date Recorded In the [...] Answer Date Recorded Total Score 0 12/15/2024 [facility] [place] of Occupat ional Health - Occupational Stress [...] Recorded Do you need help finding a [facility] career center and/or a training program? No [...] encounter Miscellaneous Notes * Telephone Encounter - Maulik Kulkarni CMA - 12/19/2024 11:51 AM EDT I called pt to book apt for his Colonoscopy. documented in this encounter Plan of Treatment Upcoming Encounters Date Type Department Care Team (Late st Contact Info) Description 01/30/2025 10:15 AM EDT Appointment [facility] - Cardiovascular [address] [facility] [phone] Rodrick Ramires DO [address] [facility], [place] [address] 02/06/2025 11:15 AM EDT Office Visit [facility] Internal Medicine - Family Medicine [address] [place] [phone] Rodrick Ramires DO [address] [place] [address] 02/09/2025 1:30 PM EDT Office Visit [facility] Cardiology [address] [place] [phone] Benoit Sinha MD [address] [place], [place] [phone] documented as of this encounter Goals Goal [...] documented as of this encounter Care Teams Auditing Control Clerk Relationship Specialty Start Date End Date Rodrick Ramires DO [address], [place] [address] PCP - General Family Medicine 10/16/16 documented as of this encounter
--- OUTSIDE RECORDS SUMMARY | 2025-01-26 13:10 | XMS_ITS | Encounter Summary ---
Author Organization [employer] Address [id number] [address] [place] [address] Care Team Providers Care Mechanical Engineering Coop Name Role Phone SelmaRodrick montelongo Irvin MATAMOROS Primary Care Provider [phone] Encounter Details Date Type Department Care Team (Late st Contact Info) Description [facility]/08[facility]2024 [facility] [address] [place] [phone] Abbie Knutson, CHARLI Social History Tobacco Use [...] Encounter - Abbie Knutson CMA - 01/08/2024 10:59 AM EDT Patient see's Dr. Ortiz but moving forward he would like to see you in [place] as it is closer to home. * Telephone Encounter - Yong Nguyen MD - 01/08/2024 10:59 AM EDT That's fine with me documented in this encounter Plan of Treatment Upcoming Encounters Date Type Department Care Team (Late st Contact Info) Description 01/30/2025 10:15 AM EDT Appointment [facility] - Cardiovascular [address] [place] [phone] Rodrick Ramires, DO [address] [facility], [place] [address] 02/06/2025 11:15 AM EDT Office Visit [facility] - Family Medicine [address] [place] [phone] [facility] [address] [place] [address] [place] [address] 02/09/2025 1:30 PM EDT Office Visit [facility] Cardiology [address] [place] [phone] Benoit Sinha MD [address] [place] [address] documented as of this encounter Visit Diagnoses Not on filedocumented in this encounter Additional Health Concerns Assessment Noted Time PHQ-9 Depression Total Score: 0 05/25/20 23 1:07 PM EDT A Body Mass Index follow-up plan has been documented for the patient 03/25/2023 2:33 PM EDT documented as of this encounter Care Teams Mechanical Engineering Coop Relationship Specialty Start Date End Date Rodrick Ramires DO [address] [place] [address] PCP - General Family Medicine 10/16/16 documented as of this encounter
--- OUTSIDE RECORDS SUMMARY | 2025-01-26 13:10 | XMS_ITS | Encounter Summary ---
Author Organization [email or web address] Address [id number] [address] [place] [address] Care Team Providers Care Spa Technician Name Role Phone Keyla Rodrick Bryan DO Primary Care Provider + [phone] Encounter Details Date Type Department Care Team (Late st Contact Info) Description 01/20/2025 [facility] My[facility], Generic Social History Tobacco Use Types Packs/Day Years Used Date Smoking Tobacco: Never Smokeless Tobacco: Current Snuff Alcohol Use Standard Drinks/Week Comments No 0 (1 standard drink = 0.6 oz pur e alcohol) [facility] Utilities Answer Date Recorded In the past 12 months has [employer] electric, gas, oil, or water company threatened [...] Answer Date Recorded Total Score 0 12/15/2024 [facility] of Occupat ional Health - Occupational Stress [...] Recorded Do you need help finding a [employer] career center and/or a training program? No [...] Info) Description 01/30/2025 10:15 AM EDT Appointment [facility] - Cardiovascular [address] [place] [address] Rodrick Ramires, DO [address], [place] [address] 02/06/2025 11:15 AM EDT Office Visit [facility] - Family Medicine [address] [place] [address] Rodrick Ramires DO [address], [place] [address] 02/09/2025 1:30 PM EDT Office Visit [facility] [address] [place] [phone] Benoit Sinha MD [address] [place] [address] documented as of this encounter Goals Goal Patient Goal Type Associated Problems Recent Progress Patient-Stated? Author Home with self care General Yes Emmy Oates, KELVIN Note: Evaluation of progress towards goal: Patient [...] documented as of this encounter Care Teams Spa Technician Relationship Specialty Start Date End Date Rodrick Ramires DO [address], [place] [address] PCP - General Family Medicine 10/16/16 documented as of this encounter
--- OUTSIDE RECORDS SUMMARY | 2025-01-26 13:10 | XMS_ITS | Continuity of Care Document ---
Author Organization [facility] Address [address] [place] [address] Problems Unknown Problems Results Test Value / Unit Interpretation Reference Ran SARS-COV-2 (COVID19), NAAT[[id number]] Collected: 09/02/2020 06:45 PM Specimen Received: 09/04/2020 06:25 PM Source: [facility] SARS-CoV-2 INTERPRETATION [[id number]] Negative See Note SARS-CoV-2 RNA NOT DETECTEDN egative results do not preclude SARS-CoV-2 infection and should notbe used as the sole basis for patient management decisions. Negativeresults must be combined with clinical observations, patient history,and epidemiological information. Optimum specimen types and timingfor peak viral levels during infections caused by SARS-CoV-2 have notbeen determined. Collection of multiple specimens or types ofspecimens may be necessary to detect virus. Improper specimencollection and handling, sequence variability under primers/probes,or organism present below the limit of detection may lead to falsenegative results. Positive and negative predictive values oftesting are highly dependent on prevalence. False negative testresults are more likely when prevalence is high. SOURCE [[id number]] NASOPHARYNGEAL Note: Methodology is [employer] Real-Time RT-PCR. The expectedresult or reference range is NEGATIVE (Not Detected). For more information regarding COVID-19 testing to include clinicalinformation, methodology detail, intended use, FDA authorization andrecommended fact sheets for patients or healthcare providers, see [employer] Announcement: SARS-CoV-2 (COVID-19) by NAAT at URL below (note,fact sheets are provided by method given in report:[email or web address] Alternatively, see downloadable PDF fact sheet at:[email or web address] Allergies, adverse reactions, alerts No known allergies and adverse reactions Medications No administered medications reported Vital Signs No vital signs reported Social History No smoking Hx information available
--- OUTSIDE RECORDS SUMMARY | 2025-01-26 13:10 | XMS_ITS | Encounter Summary ---
Author Organization [employer] Address [id number] [address] [place] [address] Care Team Providers Care Endoscopic Technician Name Role Phone SelmaRodrick montelongo Irvin MATAMOROS Primary Care Provider [phone] Encounter Details Date Type Department Care Team (Late st Contact Info) Description 01/11/2024 [facility] [address] [place] [phone] Abbie Knutson, CHARLI Social History Tobacco Use [...] Telephone Encounter - Abbie Knutson CMA - 01/11/2024 2:11 PM EDT Called patient lvm to schedule with Dr. Nguyen in [place]. documented in this encounter Plan of Treatment Upcoming Encounters Date Type Department Care Team (Late st Contact Info) Description 01/30/2025 10:15 AM EDT Appointment [facility] - Cardiovascular [address] [place] [phone] Rodrick Ramires DO [address] [facility], [place] [address] 02/06/2025 11:15 AM EDT Office Visit [facility] - Family Medicine [address] [place] [phone] Rodrick Ramires DO [address] [facility], [place] [address] 02/09/2025 1:30 PM EDT Office Visit [facility] [address] [facility] [address] [place] [phone] Benoit Sinha MD [address] [place], [place] [phone] documented as of this encounter Visit Diagnoses Not on filedocumented in this encounter Additional Health Concerns Assessment Noted Time PHQ-9 Depression Total Score: 0 05/25/20 23 1:07 PM EDT A Body Mass Index follow-up plan has been documented for the patient 03/25/2023 2:33 PM EDT documented as of this encounter Care Teams Endoscopic Technician Relationship Specialty Start Date End Date Rodrick Ramires DO [address], [place] [address] PCP - General Family Medicine 10/16/16 documented as of this encounter
--- OUTSIDE RECORDS SUMMARY | 2025-01-26 13:10 | XMS_ITS | Encounter Summary ---
Author Organization [employer] tem Address [facility] [id number] [address] [place] [address] Care Team Providers Care Restaurant Attendant Name Role Phone Rodrick Ramires DO Primary Care Provider + [phone] Reason for Referral * Cardiology (Routine) - Pending Review Specialty Diagnoses / Procedures Referred By Contac t Referred To Contact Diagnoses Chest pain, unspecified type Dyspnea, unspecified type Procedures Stress test (exercise only) Rodrick Ramires DO [address] [place] [address] Phone: tel: fax: Referral ID Status Reason Start Date Expiration Date V isits Requested Visits Authorized [id number] Pending Review 01/19/2025 01/19/2026 5 5 * Cardiology (Routine) - Authorized Specialty Diagnoses / Procedures Referred By Contac t Referred To Contact Diagnoses Chest pain, unspecified type Dyspnea, unspecified type Procedures ECG 12 lead Rodrick Ramires DO [address], [place] [address] Phone: tel: fax: Referral ID Status Reason Start Date Expiration Date V isits Requested Visits Authorized [id number] Authorized 01/19/2025 01/19/2026 1 1 Encounter Details Date Type Department Care Team (Late st Contact Info) Description 01/19/2025 Orders Only [facility] Internal Medicine - Family Medicine [address] [place] [phone] Rodrick Ramires DO [address], [place] [address] Chest pain, unspecified type (Primary Dx); Dyspnea, unspecified type Social History Tobacco Use Types Packs/Day Years Used Date Smoking Tobacco: Never Smokeless Tobacco: Current Snuff Alcohol Use Standard Drinks/Week Comments No 0 (1 standard drink = 0.6 oz pur e alcohol) [facility] Utilities Answer Date Recorded In the past 12 months has th e electric, gas, oil, or water company [...] Answer Date Recorded Total Score 0 12/15/2024 [facility] [place] of Occupat ional Health - Occupational Stress [...] Recorded Do you need help finding a [facility] career center and/or a training program? [...] Info) Description 01/30/2025 10:15 AM EDT Appointment [facility] - Cardiovascular [address] [place] [address] Rodrick Ramires, DO [address] [place] [address] 02/06/2025 11:15 AM EDT Office Visit [facility] - Family Medicine [address] [place] [phone] Rodrick Ramires, DO [address], [place] [address] 02/09/2025 1:30 PM EDT Office Visit [facility] [address] [place] [phone] Benoit Sinha MD [address] [place] [address] Scheduled Orders Name Type Priority Associated Diagnoses Orde r Schedule ECG 12 lead ECG Routine Chest pain, unspecified type Dyspnea, unspecified type 1 Occurrences starting 01/19/2025 until 01/19/2026 Stress test (exercise only) Cardiac Services Routine Chest pain, unspecified type Dyspnea, unspecified type Expected: 01/19/2025, Expires: 01/19/2026 documented as of this encounter Goals Goal Patient Goal Type Associated Problems Recent Progress Patient-Stated? Author Home with self care General Yes Emmy Oates, RN Note: Evaluation of progress towards goal: Patient plans to return home with self care. documented as of this encounter Visit Diagnoses Diagnosis Chest pain, unspecified type- Primary Dyspnea, unspecified type documented in this encounter Additional Health Concerns Assessment Noted Time PHQ-9 Depression Total Score: 0 12/16/19 25 1:05 PM EDT A Body Mass Index follow-up plan has been documented for the patient 03/25/2023 2:33 PM EDT documented as of this encounter Care Teams Restaurant Attendant Relationship Specialty Start Date End Date Rodrick Ramires DO [address], [place] [address] PCP - General Family Medicine 10/16/16 documented as of this encounter
--- OUTSIDE RECORDS SUMMARY | 2025-01-26 13:10 | XMS_ITS | Clinical Summary ---
Author Organization [employer] s tem Address [facility] [place]-[id number] [address] [place] [address] Care Team Providers Care Maintenance Shop Welder Name Role Phone SelmaRodrick montelongo Irvin MATAMOROS Primary Care Provider + [phone] Allergies Active Allergy Reactions Criticality Noted Date Comments Mantee Diarrhea Low 10/16/2016 Other reaction(s): Other: See Comments Ibuprofen GI Disturbance Medium 10/16/2016 Penicillins Hives Medium 09/26/2016 Prednisone Tachycardia Medium 09/26/2016 Jittery -mainly with IV doses, heart rate goes up with oral. Medications * This document contains information received from the source organization and may not represent a complete record from that organization. oxyCODONE-aceta minophen (PERCOCET) 5-325 mg per tablet Take 1 tablet by mouth every 6 (six) hours as needed for pain. Active cetirizine (ZyrTEC) 10 mg tablet Take 1 tablet (10 mg total) by mouth in the morning. Active STOOL SOFTENER 100 mg capsuleIndicati ons:Constipatio n, unspecified TAKE 1 CAPSULE BY MOUTH EVERY DAY 30 capsule 5 05/06/20 22 Active diclofenac (VOLTAREN) 75 mg EC tablet Take 1 tablet (75 mg total) by mouth in the morning and 1 tablet (75 mg total) in the evening. Take with meals. 06/05/20 22 Active cholecalciferol , vitamin D3, 2,000 units tablet Active calcium citrate (CALCITRATE) 200 mg (950 mg) tabletIndicatio ns:Arthrodesis status TAKE 2 TABLETS BY MOUTH 3 TIMES A DAY 540 tablet 1 10/31/19 23 Active ketoconazole (NIZORAL) 2 % shampoo 04/11/20 23 Active tiZANidine (ZANAFLEX) 4 mg tablet Take 1 tablet (4 mg total) by mouth as needed in the morning and 1 tablet (4 mg total) as needed at noon and 1 tablet (4 mg total) as needed in the evening for muscle spasms. 12/18/19 24 Active hydrOXYzine (ATARAX) 10 mg tabletIndicatio ns:Urticaria, unspecified TAKE 1 TABLET BY MOUTH EVERY DAY AT NIGHT 90 tablet 1 09/09/19 25 Active oxybutynin XL (DITROPAN-XL) 10 mg 24 hr tablet TAKE 1 TABLET BY MOUTH EVERY DAY IN THE MORNING 90 tablet 1 10/07/19 25 Active meclizine (ANTIVERT) 12.5 mg tablet Take 1 tablet (12.5 mg total) by mouth 3 (three) times a day as needed for dizziness. 30 tablet 11/30/19 25 Active pregabalin (LYRICA) 200 mg capsule Take 1 capsule (200 mg total) by mouth in the morning and 1 capsule (200 mg total) before bedtime. Active mirtazapine (REMERON) 15 mg tabletIndicatio ns:Insomnia, unspecified TAKE 1 TABLET BY MOUTH EVERY DAY 90 tablet 1 12/20/19 25 Active fluticasone furoate (ARNUITY ELLIPTA) 100 mcg/actuation blister with device Inhale 1 puff in the morning. 30 each 5 12/27/19 25 Active omeprazole (PriLOSEC) 20 mg capsuleIndicati ons:Gastro-esop hageal reflux disease without esophagitis TAKE 1 CAPSULE BY MOUTH EVERY DAY IN THE MORNING BEFORE BREAKFAST 90 capsule 01/26/20 25 Active venlafaxine XR (EFFEXOR-XR) 150 mg 24 hr capsuleIndicati ons:Other specified depressive episodes TAKE 1 CAPSULE (150 MG TOTAL) BY MOUTH IN THE MORNING 90 capsule 01/26/20 25 Active albuterol (PROVENTIL HFA;VENTOLIN HFA) 90 mcg/actuation inhalerIndicati ons:Asthma, unspecified asthma severity, unspecified whether complicated, unspecified whether persistent INHALE 2 PUFFS EVERY 6 HOURS NEEDED FOR WHEEZING 8 g 1 01/26/20 25 Active rosuvastatin (CRESTOR) 10 mg tabletIndicatio ns:Hyperlipidem ia, unspecified TAKE 1 TABLET (10 MG TOTAL) BY MOUTH EVERY MORNING. 90 tablet 1 01/26/20 25 Active rosuvastatin (CRESTOR) 10 mg tabletIndicatio ns:Hyperlipidem ia, unspecified Take 1 tablet (10 mg total) by mouth every morning. 90 tablet 1 10/10/19 25 025 Discontinued omeprazole (PriLOSEC) 20 mg capsuleIndicati ons:Gastro-esop hageal reflux disease without esophagitis TAKE 1 CAPSULE BY MOUTH EVERY DAY IN THE MORNING BEFORE BREAKFAST 90 capsule 12/08/19 025 Discontinued venlafaxine XR (EFFEXOR-XR) 150 mg 24 hr capsuleIndicati ons:Other specified depressive episodes TAKE 1 CAPSULE (150 MG TOTAL) BY MOUTH IN THE MORNING 90 capsule 12/08/19 025 Discontinued albuterol (PROVENTIL HFA;VENTOLIN HFA) 90 mcg/actuation inhalerIndicati ons:Asthma, unspecified asthma severity, unspecified whether complicated, unspecified whether persistent Inhale 2 puffs every 6 (six) hours as needed for wheezing. 18 g 1 12/16/19 025 Discontinued Active Problems Problem Noted Date Diagnosed Date Hypotension due to hypovolemia 11/29/2024 Orthostatic hypotension 11/29/2024 Snuff user 11/29/2024 TIMOTHY (acute kidney injury) 11/28/2024 Class 1 obesity due to exces s calories with serious comorbidity and body mass index (BMI) of 30.0 to 30.9 in adult 02/09/2024 Peyronie's disease 07/15/2023 Overview (03/08/2024): 07/15/23 Having pain no curvature. Acute phase plaque. Already on Voltaren can not add Mobic on top of this. Recommend abstaining from intercourse until pain resolves. Will readdress at follow-up 03/08/24: persistent pain with erection. Reassured that this will typically resolve with a little more time Lower urinary tract symptoms 05/06/2023 Overview (03/08/2024): 07/15/23 Again discussed bladder irritants I think [...] possible dilation should a stricture be present Encounter for screening for malignant neoplasm o f prostate 05/06/2023 Sprain of shoulder and upper arm 03/25/2023 Anxiety 03/25/2023 Essential hypertension 03/25/2023 Post-traumatic osteoarthritis of both knees 03/01 Chronic anxiety 07/01/2022 Electrocardiogram abnormal 07/01/2022 Palpitations 07/01/2022 Mixed hyperlipidemia 08/28/2020 Low vitamin D level 02/23/2020 Polyp of sigmoid colon 09/28/2019 Multiple cutaneous and mucosal venous malformati ons 09/28/2019 Multiple cutaneous and mucosal venous malformati ons 09/28/2019 Rectal bleeding 09/16/2019 Rectal hemorrhage 09/16/2019 Epididymitis 07/18/2019 Esophagitis 03/02/2019 Antral gastritis 03/02/2019 Gastritis 03/02/2019 Dysphagia 02/25/2019 Essential hypertension 11/16/2018 Hypertrophy of fat pad of knee 07/20/2018 Tear of medial meniscus of knee 07/20/2018 Sprain of knee 11/11/2017 Knee joint effusion 11/11/2017 Contusion of knee 11/11/2017 Depressive disorder 10/02/2017 Cervical radiculopathy 03/06/2017 Osteoarthritis 12/17/2016 PONCHO (obstructive sleep apnea) 10/16/2016 Obstructive sleep apnea syndrome 2016 Fibromyalgia 08/12/2016 Shoulder pain 08/12/2016 Impingement syndrome of shoulder region 08/07/20 16 Primary osteoarthritis of right knee 07/03/2016 Encounters Date Type Department Care Team Description 01/25/2025 Refill [facility] [address] [place] [address] Rodrick Ramires, DO Gastro-esophageal reflux disease without esophagitis; Other specified depressive episodes; Asthma, unspecified asthma severity, unspecified whether complicated, unspecified whether persistent; Hyperlipidemia, unspecified 01/20/2025 Patient Self-Triage [facility] Department Mychart, Generic 01/19/2025 Orders Only [facility] [address] [place] [address] Rodrick Ramires, Chest pain, unspecified type (Primary Dx); Dyspnea, unspecified type 01/13/2025 Telephone [facility] [address] [place] [address] Pretty Watson CMA 12/26/2024 Orders Only [facility] [address] [place] [address] Rodrikc Ramires, 12/24/2024 11:19 AM EDT - 12/24/2024 11:59 PM EDT Hospital Encounter [facility] - Lab [address] [place] [phone] Hypoglycemia, unspecified (Primary Dx) Discharge Disposition: Home 12/24/2024 Travel 12/22/2024 Orders Only [facility] [address] [place] [address] Maulik Kulkarni CMA Hypoglycemia 12/22/2024 Orders Only [facility] [address] [place] [address] Rodrick Ramires, Hypoglycemia (Primary Dx) 12/20/2024 11:20 AM EDT - 12/20/2024 11:59 PM EDT Hospital Encounter [facility] - Lab [address] [place] [phone] Impaired fasting glucose; Hypoglycemia Discharge Disposition: Home 12/20/2024 11:16 AM EDT - 12/20/2024 11:19 AM EDT Hospital Encounter [facility] - Pulmonary Function [address] [place] [address] Rodrick Ramires, DO Asthma, unspecified asthma severity, unspecified whether complicated, unspecified whether persistent; Hypotension due to hypovolemia Discharge Disposition: Home 12/20/2024 Travel 12/20/2024 Orders Only [facility] [address] [place] [address] Rodrick Ramires, DO Hypoglycemia (Primary Dx); Impaired fasting glucose 12/19/2024 Telephone [facility] [address] [place] [address] Maulik Kulkarni, [facility] 12/18/2024 Refill [facility] [address] [place] [address] Rodrick Ramires, DO Insomnia, unspecified 12/15/2024 7:40 PM EDT - 12/15/2024 11:59 PM EDT Hospital Encounter [facility] Lab [address] [facility] [address] [place] [address] Hypotension due to hypovolemia; Essential hypertension; Anemia, unspecified type Discharge Disposition: Home 12/15/2024 1:00 PM EDT Office Visit [facility] [address] [place] [address] oRdrick Ramires, Hypotension due to hypovolemia (Primary Dx); Asthma, unspecified asthma severity, unspecified whether complicated, unspecified whether persistent; Polyp of sigmoid colon, unspecified type; Essential hypertension; Obstructive sleep apnea syndrome; Anemia, unspecified type; Right chronic serous otitis media 12/15/2024 Travel 12/14/2024 Telephone [facility] [address] [place] [address] Misty Sun, [facility] 12/14/2024 Telephone [facility] [address] [place] [address] Pretty Watson, [facility] 12/07/2024 Refill [facility] [address] [place] [address] Rodrick Ramires, DO Gastro-esophageal reflux disease without esophagitis; Other specified depressive episodes 12/05/2024 Telephone [facility] [address] [place] [phone] Maulik Kulkarni [facility] 12/01/2024 [facility] [address] [place] [phone] Dayanara Fernandes, senior solutions engineer Of Care 11/30/2024 [facility] [address] [facility] [address] Pretty Watson, [facility] 11/28/2024 1:45 PM EDT - 11/29/2024 11:24 AM EDT Hospital Encounter [facility] - Acute Care [address] [place] [address] Marek Joyner MD Gill, Kaleem U, MD TIMOTHY (acute kidney injury) ([facility]) (Primary Dx); Hypotension, unspecified hypotension type Discharge Disposition: Home 11/28/2024 Travel from Last 3 Months Immunizations Immunization Administration Dates Next Due COVID-19, mRNA, LNP-S, PF, 100mcg/0.5mL Dose 12/14/2020,12/11/2020,11/16/2020,2020 Hepatitis B 01/25/2014,09/26/2013,07/27/2013 Influenza (IM) Preservative Free 08/21/2015 Influenza, Im Trivalent Preservative 06/13/2019, 06/11/2018 Influenza, Injectable, Mdck, Preservative Free, Quad 08/19/2021,08/27/2019,09/11/2017 Influenza, Injectable, quadr ivalent (PF) 06/11/2018 Tdap 11/30/2015 Family History Medical History Relation Name Comments Arthritis Father Asthma Father Hypertension Father Prostate cancer Father 75 in '25 Colon cancer Maternal Grandmother Fibromyalgia Mother Lupus Mother Uterine cancer Sister 1 Jeanette ADD / ADHD Son Breast cancer Neg Hx Relation Name Status Comments Father Alive Maternal Grandmother Mother Alive Sister 1 Jeanette Alive Sister 2 Snow Alive Son Social History Tobacco Use Types Packs/Day Years Used Date Smoking Tobacco: Never Smokeless Tobacco: Current Snuff Tobacco Cessation:Ready to Q uit: Not Asked; Counseling Given: Not Answered Alcohol Use Standard Drinks/Week Comments No 0 (1 standard drink = 0.6 oz pur e alcohol) [facility] Utilities Answer Date Recorded In the past 12 months has th e [place], gas, oil, or water [employer] threatened to shut off services in your [...] Answer Date Recorded Total Score 0 12/15/2024 [facility] [place] [facility] Occup[facility] ional [facility] - Occupational Stress [...] Recorded Do you need help finding a [facility] career center and/or a training program? [...] Orientation Straight 01/30/2023 9: 11 PM EDT Last Filed Vital Signs Vital Sign Reading Time Taken Comments Blood Pressure 110/80 12/15/2024 1:13 PM EDT Pulse 98 12/15/2024 1:13 PM EDT Temperature 36.7 C (98 F) 12/15/2024 1:06 PM EDT Respiratory Rate 20 12/15/2024 1:06 PM EDT Oxygen Saturation 98% 12/15/2024 1:13 PM EDT Inhaled Oxygen Concentration - - Weight 93 kg (205 lb) 12/15/2024 1:06 PM EDT Height 172.7 cm (5' 7.99 ) 12/15/2024 1:06 PM ED T Body Mass Index 31.18 12/15/2024 1:06 PM EDT Plan of Treatment Upcoming Encounters Date Type Department Care Team (Late st Contact Info) Description 01/30/2025 10:15 AM EDT Appointment [facility] - Cardiovascular [address] [place] [phone] Rodrick Ramires, DO [address] [facility] [address] [place] [address] 02/06/2025 11:15 AM EDT Office Visit [facility] [address] [place] [phone] Rodrick Ramires DO [address], [place] [address] 02/09/2025 1:30 PM EDT Office Visit [facility] [address] [place] [phone] Benoit Sinha MD [address] [place] [address] Health Maintenance Due Date Last Done Comments Tobacco Counseling 1975 Adult BMI Follow Up Plan 03/25/2024 03/25/2023 Influenza Vaccine 05/01/2025 08/19/2021, , 06/13/2019, Additional history exists DTaP,Tdap and Td Vaccines (2 - Td or Tdap) 11/29/2025 11/30/2015 Adult BMI Screening 12/15/2025 12/15/2024 Depression Screening 12/15/2025 12/15/2024 Tobacco Screening 12/15/2025 12/15/2024 COVID-19 Vaccine Discontinued 08/19/2021, , 12/11/2020, Additional history exists Goals Goal Patient Goal Type Associated Problems Recent Progress Patient-Stated? Author Home with self care General Yes Emmy Oates, RN Note: Evaluation of progress towards goal: Patient plans to return home with self care. Medical Devices Not on file Procedures Procedure Name Priority Date/Time Associated Diagnosis Comments C-PEPTIDE, S Routine 12/24/2024 11:30 AM EDT Hypoglycemia, unspecified BASIC METABOLIC PANEL Routine 12/24/2024 11:30 AM EDT Hypoglycemia, unspecified LIVER PANEL Routine 12/24/2024 11:30 AM EDT Hypoglycemia, unspecified PROINSULIN Routine 12/24/2024 11:30 AM EDT Hypoglycemia, unspecified GENERIC SEND OUT LAB USE ONLY Routine 12/24/2024 11:29 AM EDT UNLISTED LAB TEST Routine 12/24/2024 11: 29 AM EDT Hypoglycemia, unspecified INSULIN Routine 12/20/2024 12:00 PM EDT Hypoglycemia HEMOGLOBIN A1C Routine 12/20/2024 12:00 PM EDT Impaired fasting glucose SPIROMETRY PRE/POST BRONCHODILATOR AND DLCO AND PLETHYSMOGRAPHY Routine 12/20/2024 11:56 AM EDT Asthma, unspecified asthma severity, unspecified whether complicated, unspecified whether persistent CBC WITH AUTO DIFFERENTIAL Routine 12/15/2024 1:45 PM EDT Anemia, unspecified type COMPREHENSIVE METABOLIC PANEL Routine 12/15/2024 1:45 PM EDT Hypotension due to hypovolemia Essential hypertension CBC WITH AUTO DIFFERENTIAL Routine 11/29/2024 4:21 AM EDT MAGNESIUM Routine 11/29/2024 4:21 AM EDT COMPREHENSIVE METABOLIC PANEL Routine 11/29/2024 4:21 AM EDT PULSE OXIMETRY, SPOT Routine 11/28/2024 8:16 PM EDT POCT NURSING URINE MACROSCOPIC UA Routine 11/28/2024 4:24 PM EDT URINALYSIS Routine 11/28/2024 4:11 PM EDT DRUG SCREEN, URINE STAT 11/28/2024 4: 11 PM EDT TROP I, HIGH SENSITIVITY 1 HOUR STAT 11/28/2024 3:26 PM EDT PM ED CRITICAL CARE Routine 11/28/2024 2 :[address] BRAIN WO CONT STAT 11/28/2024 2:55 PM EDT BLOOD CULTURE STAT 11/28/2024 2:31 PM EDT ETHANOL STAT 11/28/2024 2:24 PM EDT MAGNESIUM STAT 11/28/2024 2:24 PM EDT TROPONIN I, HIGH SENSITIVITY STAT 11/28/2024 2:24 PM EDT LACTATE W/ REFLEX STAT 11/28/2024 2:2 4 PM EDT COMPREHENSIVE METABOLIC PANEL STAT 11/28/2024 2:24 PM EDT CBC WITH AUTO DIFFERENTIAL STAT 11/28/2024 2:24 PM EDT BLOOD CULTURE STAT 11/28/2024 2:24 PM EDT ECG 12-LEAD STAT 11/28/2024 1:48 PM EDT from Last 3 Months Results * C-Peptide, S (12/24/2024 11:30 AM EDT) Pathologist [facility] C-Peptide, S 3.6 1.1 - 4.4 ng/mL 12/27/2024 11:15 AM EDT [facility] Comment: NOTE ADDITIONAL INFORMATION Reference interval applies to fasting patients. Test Performed by: [facility] [address] [place] [address] Duplicating Machine Operator: Priscilla Leigh Ph.D.; CLIA# [id number] Blood Serum / Unknown 12/24/2024 1 1:30 AM EDT 12/24/2024 11:31 AM EDT us Luciana Escoto MD LAB BLOOD ORDERABLES Final Re sult [address] [address] * Proinsulin (12/24/2024 11:30 AM EDT) Proinsulin, Intact 4.7 <=7.2 pmol/L 12/29/2024 11:29 PM EDT [facility] Comment: NOTE Performed By: [facility] [address] [place] [address] Animal Damage Control Agent: Austen Rodriguez MD, PhD CLIA Number: [id number] Serum / Unknown 12/24/2024 1 1:30 AM EDT 12/24/2024 11:31 AM EDT us Luciana Escoto MD LAB BLOOD ORDERABLES Final Re sult Performing Organization Address City/[facility]/ZIP Co de Phone Number [address] [address] * Liver panel (12/24/2024 11:30 AM EDT) Alkaline phosphatase 47 39 - 130 U/L 12/24/2024 3:43 PM EDT [facility] AST 18 0 - 41 U/L 12/24/2024 3:43 PM EDT [facility] ALT 19 0 - 40 U/L 12/24/2024 3:43 PM EDT [facility] Total Bilirubin 0.6 0.3 - 1.2 mg/dL 12/24/2024 3:43 PM EDT [facility] Bilirubin, direct 0.1 0.0 - 0.4 mg/dL 12/24/2024 3:43 PM EDT [facility] Albumin 4.8 3.2 - 5.3 g/dL 12/24/2024 3:43 PM EDT [facility] Total Protein 7.2 6.0 - 8.0 g/dL 12/24/2024 3:43 PM EDT [facility] PLASMA 12/24/2024 11:3 0 AM EDT 12/24/2024 11:31 AM EDT us Luciana Escoto MD LAB BLOOD ORDERABLES Final Re sult [facility] [address] [facility], [address] [place] [address] * Basic Metabolic Panel (12/24/2024 11:30 AM EDT) Sodium 143 134 - 146 mmol/L 12/24/2024 3:43 PM EDT [facility] Potassium, Bld 4.4 3.5 - 5.0 mmol/L 12/24/2024 3:43 PM EDT [facility] Chloride 103 98 - 109 mmol/L 12/24/2024 3:43 PM EDT [facility] CO2 30 22 - 32 mmol/L 12/24/2024 3:43 PM EDT [facility] Anion gap 10 5 - 15 mmol/L 12/24/2024 3:43 PM EDT [facility] BUN 10 5 - 23 mg/dL 12/24/2024 3:43 PM EDT [facility] Creatinine 1.07 0.60 - 1.30 mg/dL 12/24/2024 3:43 PM EDT [facility] Comment:METHOD TRACEABLE TO IDMS STANDARD Glucose 99 65 - 99 mg/dL 12/24/2024 3:43 PM EDT [facility] Calcium 9.9 8.5 - 10.5 mg/dL 12/24/2024 3:43 PM EDT [facility] eGFR (CKD-EPI)non-ra ce dependent 86 >59 ml/min/1.7 3sq.m 12/24/2024 3:43 PM EDT [facility] Comment: Reported eGFR is based on the CKD-EPI 2020 equation that does not use a race coefficient. PLASMA 12/24/2024 11:3 0 AM EDT 12/24/2024 11:31 AM EDT Luciana Escoto MD LAB BLOOD ORDERABLES Final Re sult Performing Organization Address City/[facility]/ZIP Co de Phone Number [facility] [address] [place] [address] * Unlisted Lab Test (12/24/2024 11:29 AM EDT) Unlisted lab test Sent to reference lab 12/25/2024 5:22 PM EDT [employer] MISCELLANEOUS 12/24/2024 11: 29 AM EDT 12/24/2024 11:30 AM EDT Luciana Escoto MD LAB BLOOD ORDERABLES Final Re sult [facility] * Generic Send Out Lab Use Only (12/24/2024 11:29 AM EDT) Test name FFIG2 INSULIN LIKE IGF2 12/25/2024 12:59 PM EDT [facility] Test result SEE COMMENTS 01/06/2025 12:08 AM 01/06/2025 1:08 AM EDT [facility] Comment: NOTE Test Result Flag Unit RefValue IGF-2 945 ng/mL This test was developed and its performance characteristics determined by [employer] It has not been cleared or approved by the Food and Drug Administration. Reference Range: Age Range Adults 333 - 967 Test Performed by: [facility] [address] [place] [address] MISCELLANEOUS 12/24/2024 11: 29 AM EDT 12/24/2024 11:30 AM EDT us Luciana Escoto MD LAB ORDERABLES Final Result [facility] [address] [facility] [place] [address] * (ABNORMAL) Insulin (12/20/2024 12:00 PM EDT) Insulin 29.73(H) 1.00 - 23.00 uIU/mL 12/20/2024 6:41 PM EDT [facility] Comment:Ref. range is for FA STING NON-DIABETIC POPULATION. Serum / Unknown 12/20/2024 1 2:00 PM EDT 12/20/2024 12:01 PM EDT us Rodrick Ramires DO LAB BLOOD ORDERABLES Final R esult [facility] [address] [facility] [facility] [facility], [address] [place] [address] * Hemoglobin A1c (12/20/2024 12:00 PM EDT) Hemoglobin A1C 5.4 4.4 - 5.6 % 12/20/2024 6:20 PM EDT [facility] Comment: NOTE ADA Guidelines Result HgbA1c Normal : less than 5.7 % Prediabetes : 5.7 % to 6.4 % Diabetes : > 6.4 % Use with caution in patients with abnormal hemoglobin variants as the half-life of red blood cells and in vivo glycation rates are affected. Average glucose 108 mg/dL 6:20 PM EDT [facility] Blood (PLASMA) 12/20/2024 12 :00 PM EDT 12/20/2024 12:01 PM EDT us Rodrick G Keyla DO LAB BLOOD ORDERABLES Final R esult [facility] [address] [place] [address] * SPIROMETRY PRE/POST BRONCHODILATOR AND DLCO AND PLETHYSMOGRAPHY (12/20/2024 11:56 AM EDT) Narrative MANUALLY TRANSCRIBED RESULTS - 12/23/2024 4:28 PM EDT Spirometric evaluation shows a normal FVC at 4.25 L, a normal FEV1 at 3.38 L, and a normal FEV1/FVC at 80%. The FEF 25-75% is normal at 3.48 L/sec. Following administration of bronchodilators, there is significant improvement in the FEF-25-75%. The FEV1 is 109% of predicted. Lung volume studies show a normal total lung capacity, a normal vital capacity, a mildly reduced expiratory reserve volume, and a normal residual volume. Diffusion study shows mildly reduced DLCO, but when corrected for alveolar ventilation is normal. Flow volume loops reveal normal inspiratory and expiratory flow patterns. Impression: Normal spirometry of the large and peripheral airways Peripheral airways are reactive to bronchodilators Normal diffusion Findings are consistent with an asthmatic process. Clinical correlation recommended. us Rodrickcarlin Stephenscruz DO PFT ORDERABLES Final Result Performing Organization Address [facility] Co de Phone Number MANUALLY TRANSCRIBED RESULTS * CBC auto differential (12/15/2024 1:45 PM EDT) Only the most recent of3 resultswithin the time period is included. Pathologist [facility] White Blood Cells 5.2 4.0 - 11.0 X10E9/L 12/15/2024 8:21 PM EDT [facility] RBC count 4.56 4.10 - 5.70 X10E12/L 12/15/2024 8:21 PM EDT [facility] Hemoglobin 13.5 13.0 - 17.0 g/dL 12/15/2024 8:21 PM EDT [facility] Hematocrit 39.6 39 - 49 % 12/15/2024 8:21 PM EDT [facility] MCV 87 80 - 100 fL 12/15/2024 8:21 PM EDT [facility] [facility] MCH 29.6 27 - 34 pg 12/15/2024 8:21 PM EDT [facility] MCHC 34.1 32 - 36 g/dL 12/15/2024 8:21 PM EDT [facility] RDW 13.2 11.5 - 15.0 % 12/15/2024 8:21 PM EDT [facility] Platelets 261 150 - 450 X10E9/L 12/15/2024 8:21 PM EDT [facility] MPV 9.2 7 - 12 fL 12/15/2024 8:21 PM EDT [facility] Band 2.0 % 12/15/2024 9:06 PM EDT [facility] Seg neutrophil 40.0 % 12/15/2024 9:06 PM EDT [facility] Lymphocyte 48.0 % 12/15/2024 9:06 PM EDT [facility] Monocytes 6.0 % 12/15/2024 9:06 PM EDT [facility] Eosinophil 3.0 % 12/15/2024 9:06 PM EDT [facility] Basophil 1.0 % 12/15/2024 9:06 PM EDT [facility] Neutrophils Absolute (M) 2.2 1.5 - 6.6 X10E9/L 12/15/2024 9:06 PM EDT [facility] Lymphocytes Absolute 2.4 1.0 - 3.5 X10E9/L 12/15/2024 9:06 PM EDT [facility] Monocytes Absolute 0.3 0 - 0.9 X10E9/L 12/15/2024 9:06 PM EDT [facility] Eosinophils Absolute 0.2 0.0 - 0.4 X10E9/L 12/15/2024 9:06 PM EDT [facility] Basophils Absolute 0.1 0.0 - 0.2 X10E9/L 12/15/2024 9:06 PM EDT [facility] RBC Morphology NORMAL 12/15/2024 9:06 PM EDT [facility] Blood / Unknown 12/15/2024 1 :45 PM EDT 12/15/2024 7:53 PM EDT us Rodrick Ramires DO LAB BLOOD ORDERABLES Edited Result - Final MARCELO [facility] [address] [facility], [address] [place] [address] * (ABNORMAL) Comprehensive metabolic panel (12/15/2024 1:45 PM EDT) Only the most recent of3 resultswithin the time period is included. Sodium 139 134 - 146 mmol/L 12/15/2024 8:35 PM EDT [facility] Potassium, Bld 4.4 3.5 - 5.0 mmol/L 12/15/2024 8:35 PM EDT [facility] Chloride 102 98 - 109 mmol/L 12/15/2024 8:35 PM EDT [facility] CO2 27 22 - 32 mmol/L 12/15/2024 8:35 PM EDT [facility] Anion gap 10 5 - 15 mmol/L 12/15/2024 8:35 PM EDT [facility] BUN 10 5 - 23 mg/dL 12/15/2024 8:35 PM EDT [facility] Creatinine 0.99 0.60 - 1.30 mg/dL 12/15/2024 8:35 PM EDT [facility] Comment:METHOD TRACEABLE TO IDMS STANDARD Glucose 114(H) 65 - 99 mg/dL 12/15/2024 8:35 PM EDT [facility] Calcium 9.9 8.5 - 10.5 mg/dL 12/15/2024 8:35 PM EDT [facility] Total Protein 7.0 6.0 - 8.0 g/dL 12/15/2024 8:35 PM EDT [facility] Albumin 4.9 3.2 - 5.3 g/dL 12/15/2024 8:35 PM EDT [facility] Alkaline Phosphatase 51 39 - 130 U/L 12/15/2024 8:35 PM EDT [facility] AST 18 0 - 41 U/L 12/15/2024 8:35 PM EDT [facility] ALT 17 0 - 40 U/L 12/15/2024 8:35 PM EDT [facility] Total bilirubin 0.5 0.3 - 1.2 mg/dL 12/15/2024 8:35 PM EDT [facility] eGFR (CKD-EPI)non-rac e dependent >90 >59 ml/min/1.7 3sq.m 12/15/2024 8:35 PM EDT [facility] Comment: Reported eGFR is based on the CKD-EPI 2020 equation that does not use a race coefficient. PLASMA 12/15/2024 1:45 PM EDT 12/15/2024 7:53 PM EDT us Rodrick Ramires DO LAB BLOOD ORDERABLES Final R esult [facility] [address] [facility] [facility], [address] [place] [address] * Magnesium (11/29/2024 4:21 AM EDT) Only the most recent of2 resultswithin the time period is included. Magnesium 1.9 1.8 - 2.6 mg/dL 11/29/2024 5:14 AM EDT [facility] PLASMA 11/29/2024 4:21 AM EDT 11/29/2024 4:45 AM EDT us Kavita Olsen CARDIOVASCULAR DISEASE SPECIALIST-ENROLLMENT ADVISOR LAB BLOOD ORDERABLES Nila l Result [facility] [address] [facility], [place] [address] * POCT Nursing Urine Macroscopic UA (11/28/2024 4:24 PM EDT) Specific gravity BRIANA 1.010 1.003 - 1.035 11/28/2024 4:23 PM EDT [facility] Leukocyte esterase BRIANA Negative Negative^ Negative 11/28/2024 4:23 PM EDT [facility] Nitrite BRIANA Negative Negative^ Negative 11/28/2024 4:23 PM EDT [facility] Ph 5.5 5.0 - 8.5 11/28/2024 4:23 PM EDT [facility] Protein BRIANA Negative Negative^ Negative mg/dL 11/28/2024 4:23 PM EDT [facility] Urine glucose BRIANA Negative Negative^ Negative mg/dL 11/28/2024 4:23 PM EDT [facility] Ketones BRIANA Negative Negative^ Negative mg/dL 11/28/2024 4:23 PM EDT [facility] Urobilinogen BRIANA 0.2 <1.1 eu/dL 11/28/2024 4:23 PM EDT [facility] Bilirubin BRIANA Negative Negative^ Negative 11/28/2024 4:23 PM EDT [facility] Hemoglobin BRIANA Negative Negative^ Negative 11/28/2024 4:23 PM EDT [facility] Urine / Unknown 11/28/2024 4 :24 PM EDT 11/28/2024 4:23 PM EDT Marek Joyner MD POINT OF CARE TEST ORDERABLES F inal Result [address], [place] [address] * (ABNORMAL) Drug Screen, Urine (11/28/2024 4:11 PM EDT) Amphetamine/metham phetamine Negative Negative^ Negative 11/28/2024 5:13 PM EDT [facility] Comment:AMPH/METH screening cut off = 1000 ng/mL Barbiturate Screen, Ur Negative Negative^ Negative 11/28/2024 5:13 PM EDT [facility] Comment:Barbiturates screeni ng cut off value = 200 ng/mL Benzodiazepine Screen, Urine Negative Negative^ Negative 11/28/2024 5:13 PM EDT [facility] Comment:Benzodiazepines scre ening cut off value = 200 ng/mL THC, urine Negative Negative^ Negative [facility]:Cannabinoids/THC scr eening cut off value = 50 ng/mL Cocaine (metabolite) Negative Negative^ Negative [facility]2024 [facility] Comment:Cocaine screening cu t off value = 300 ng/mL Opiate Quant, Ur Negative Negative^ Negative [facility]2024 [facility] Comment: Opiates screening cut off value = 300 ng/mL NOTE: This test is used for the detection of codeine, hydrocodone (>1000 ng/mL), morphine and hydromorphone (>900 ng/mL) in urine. Phencyclidine Negative Negative^ Negative 11/28/2024 5:13 PM [facility] Comment:Phencyclidine screen ing cut off value = 25 ng/mL Oxycodone Positive(A) Negative^ Negative 11/28/2024 5:13 PM [facility] Comment: Confirmation available upon request. Oxycodone screening cut off value = 300 ng/mL NOTE: This test is used for the detection of oxycodone and oxymorphone in urine. Methadone Negative Negative^ Negative 11/28/2024 5:13 PM [facility] Comment:Methadone screening cut off value = 300 ng/mL. Ecstasy Negative Negative^ Negative 11/28/2024 5:13 PM [facility] Comment: Ecstasy screening cut off value = 500 ng/mL This report is intended for use in clinical monitoring or management of patients. Urine Urine / Unknown 11/28/2024 4 :11 PM EDT 11/28/2024 4:37 PM EDT us Shauna Fleming CARDIOVASCULAR DISEASE SPECIALIST-ENROLLMENT ADVISOR URINE ORDERABLES Nila l Result [address], [place] [address] * Urinalysis (11/28/2024 4:11 PM EDT) Color YELLOW YELLOW^YE LLOW 11/28/2024 10:37 PM EDT [facility] Turbidity CLEAR CLEAR^LUCIA AR 11/28/2024 10:37 PM EDT [facility] Specific gravity 1.010 1.003 - 1.035 11/28/2024 10:37 PM EDT [facility] Nitrite Negative Negative^ Negative 11/28/2024 10:37 PM EDT [facility] Ph urine 6.0 5.0 - 8.5 11/28/2024 10:37 PM EDT [facility] Leukocyte esterase Negative Negative^ Negative 11/28/2024 10:37 PM EDT [facility] Protein Negative Negative^ Negative mg/dL 11/28/2024 10:37 PM EDT [facility] Glucose, Ur Negative Negative^ Negative mg/dL 11/28/2024 10:37 PM EDT [facility] Ketones urine Negative Negative^ Negative mg/dL 11/28/2024 10:37 PM EDT [facility] Urobilinogen 0.2 <1.1 eu/dL 11/28/2024 10:37 PM EDT [facility] Bilirubin, urine Negative Negative^ Negative 11/28/2024 10:37 PM EDT [facility] Hemoglobin Negative Negative^ Negative 11/28/2024 10:37 PM EDT [facility] Urine / Unknown 11/28/2024 4 :11 PM EDT 11/28/2024 9:39 PM EDT us Kavita Olsen CARDIOVASCULAR DISEASE SPECIALIST-ENROLLMENT ADVISOR URINE ORDERABLES Final Re sult MARCELO [facility] [address] [place] [address] * Troponin I, High Sensitivity 1 Hour (11/28/2024 3:26 PM EDT) 1 Hour Trop I, High Sensitivity <2 <21 ng/L 11/28/2024 3:59 PM EDT [facility] Blood Serum / Unknown 11/28/2024 3 :26 PM EDT 11/28/2024 3:29 PM EDT Shauna RIDDLE LAB BLOOD ORDERABLES Final Result MARCELO [facility] [address] [place] [address], [place] [address] * Critical Care (11/28/2024 2:59 PM EDT) Narrative Marek Joyner MD - 11/28/2024 2:59 PM EDT JANESSA Espinoza 11/28/2024 5:20 PM Critical Care Performed by: JANESSA Espinoza Authorized by: Marek Joyner MD Critical care provider statement: Critical care time (minutes): 35 Critical care was necessary to treat or prevent imminent or life-threatening deterioration of the following conditions: Renal failure Critical care was time spent personally by me on the following activities: Blood draw for specimens, development of treatment plan with patient or surrogate, evaluation of patient's response to treatment, examination of patient, obtaining history from patient or surrogate, ordering and performing treatments and interventions, ordering and review of laboratory studies, ordering and review of radiographic studies, pulse oximetry, re-evaluation of patient's condition and review of old charts I assumed direction of critical care for this patient from another provider in my specialty: yes Care discussed with: admitting provider Marek Joyner MD PROCEDURE/MINOR SURGICAL ORDERA BLES Final Result * CT brain without contrast (11/28/2024 2:55 PM EDT) Anatomical Region Laterality Modality Neuro, Head, Head and Neck, Neuro Covera N/A Computed Tomography 11/28/2024 2:57 PM EDT Narrative 11/28/2024 3:[address] BRAIN WO CONT INDICATION: Fall with head injury. TECHNIQUE: CT of the head without intravenous contrast. Reviewed in brain, bone, and soft tissue windows. COMPARISON: None. FINDINGS: No intracranial hemorrhage. No territorial loss of gómez-white differentiation. The ventricular system is normal in size and morphology. No extra-axial fluid collections or shift of midline structures. Patent basal cisterns. No depressed or displaced calvarial fracture. IMPRESSION: 1. No acute intracranial abnormality. 2. MRI would better assess for occult abnormalities such as acute ischemia. All CT scans at this facility use dose modulation, iterative reconstruction, and/or weight based dosing when appropriate to reduce radiation dose to as low as reasonably achievable. Finalized by Avtar Barnes MD on 11/28/2024 3:00 PM Procedure Note Avtar Barnes MD - 11/28/2024 CT BRAIN WO CONT INDICATION: Fall with head injury. TECHNIQUE: CT of the head without intravenous contrast. Reviewed inbrain, bone, and soft tissue windows. COMPARISON: None. FINDINGS: No intracranial hemorrhage. No territorial loss of gómez-whitedifferentiation. The ventricular system is normal in size and morphology. No extra-axialfluid collections or shift of midline structures. Patent basal cisterns. No depressed or displaced calvarial fracture. IMPRESSION: 1. No acute intracranial abnormality. 2. MRI would better assess for occult abnormalities such as acuteischemia. All CT scans at this facility use dose modulation, iterativereconstruction, and/or weight based dosing when appropriate to reduceradiation dose to as low as reasonably achievable. Finalized by Avtar Barnes MD on 11/28/2024 3:00 PM us Shauna Fleming APRN-BHAVIN IMG CT ORDERABLES Fin al Result * Blood culture (11/28/2024 2:31 PM EDT) Only the most recent of2 resultswithin the time period is included. Specimen Notes LAC 10ML 11/28/2024 2:36 PM EDT [facility] Culture NO GROWTH 5 DAYS 12/03/2024 6:02 PM EDT [employer] Blood Blood / Unknown 11/28/2024 2 :31 PM EDT 11/28/2024 5:51 PM EDT Shauna Fleming APRN-ENROLLMENT ADVISOR MICROBIOLOGY - GENERA L ORDERABLES Final Result Performing Organization Address [facility]/ZIP Co de Phone Number [address] [address] * Troponin I, High Sensitivity (11/28/2024 2:24 PM EDT) Troponin I, High Sensitivity <2 <21 ng/L 11/28/2024 3:02 PM EDT [facility] Blood Serum / Unknown 11/28/2024 2 :24 PM EDT 11/28/2024 2:33 PM EDT Shauna Fleming CARDIOVASCULAR DISEASE SPECIALIST-ENROLLMENT ADVISOR LAB BLOOD ORDERABLES Final Result Performing Organization Address [facility] Co de Phone Number [address] [address] * Lactate w/ Reflex (11/28/2024 2:24 PM EDT) Lactate w/ Reflex 1.8 0.4 - 2.0 mmol/L 11/28/2024 2:52 PM EDT [facility] Comment: Result did not trigger repeat Lactate, re-order if needed. Blood (PLASMA) 11/28/2024 2: 24 PM EDT 11/28/2024 2:33 PM EDT Shauna Fleming CARDIOVASCULAR DISEASE SPECIALIST-ENROLLMENT ADVISOR LAB BLOOD ORDERABLES Final Result Performing Organization Address [facility]/ZIP Co de Phone Number [address] [address] * Ethanol (11/28/2024 2:24 PM EDT) Ethanol Lvl <0.01 0.00 - 0.08 g/dL 11/28/2024 2:55 PM EDT [facility] Comment: This report is intended for use in clinical monitoring or management of patients. Blood (PLASMA) 11/28/2024 2: 24 PM EDT 11/28/2024 2:33 PM EDT us Shauna Fleming CARDIOVASCULAR DISEASE SPECIALIST-ENROLLMENT ADVISOR LAB BLOOD ORDERABLES Final Result [facility] [address] [facility] [place] [address] * ECG 12 lead (11/28/2024 1:48 PM EDT) 11/28/2024 1:48 PM EDT Narrative [facility] - 11/30/2024 8:05 AM EDT Shauna Fleming CARDIOVASCULAR DISEASE SPECIALIST-ENROLLMENT ADVISOR ECG ORDERABLES Final Result Performing Organization Address City/[facility]/ZIP Co de Phone Number [facility] from Last 3 Months Insurance [employer] MED[employer]ARE [place] Advance Directives * Full Code (Latest Code Status on File) Date Activated Date Inactivated Comments 11/28/2024 8:16 PM 11/29/2024 1:49 PM Care Teams Maintenance Shop Welder Relationship Specialty Start Date End Date Rodrick Ramires DO [address] [facility], [place] [address] PCP - General Family Medicine 10/16/16
--- OUTSIDE RECORDS SUMMARY | 2025-01-26 13:10 | XMS_ITS | Encounter Summary ---
Author Organization [employer] Address [id number] [place] [address] Care Team Providers Care Custom Harvester Name Role Phone Rodrick Ramires DO Primary Care Provider + [phone] Encounter Details Date Type Department Care Team (Late st Contact Info) Description 12/05/[address] [facility] [address] [place] [phone] Maulik Kulkarni CMA Social History Tobacco Use Types Packs/Day Years Used Date Smoking Tobacco: Never Smokeless Tobacco: Current Snuff Alcohol Use Standard Drinks/Week Comments No 0 (1 standard drink = 0.6 oz pur e alcohol) [facility] Utilities Answer Date Recorded In the past 12 months has th e electric, gas, oil, or water company threatened to shut off services in your home? No 11/28/2024 Overall Financial Resource Strain (CARDIA) Answe r Date Recorded How hard is it for you to pa y for the very basics like food, housing, medical care, and heating? Not hard at all 03/23/2024 PHQ-2 Answer Date Recorded Total Score 0 03/24/2024 PRAPARE - Transportation Answer Date Re corded [...] household? No 11/28/2024 Childcare Answer Date Recorded Childcare Unknown 02/09/2019 Employment Answer Date Recorded Employment Unknown 02/09/2019 Hunger Screening Answer Date Recorded Within the past 12 months we worried whether our food would run out before we got money to buy more. Never True 11/28/2024 Within the past 12 months th e food we bought just didn't last and we didn't have money to get more. Never True 11/28/2024 Purpose - Life Answer Date Recorded Purpose and direction in life Unknown Sex and Gender Information Value Date Recorded Sex Assigned at Male 01/30/2023 9:11 PM EDT Legal Sex Male 11:53 AM EDT Gender Identity Male 01/30/2023 9:11 PM EDT Sexual Orientation Straight 01/30/2023 9: 11 PM EDT documented as of this encounter Miscellaneous Notes * Telephone Encounter - Maulik Kulkarni CMA - 12/05/2024 8:36 AM EDT I called pt and left message for him to call and see if we could move his December 15 appt to December 07 at 1300[address] Per Dr Ramires. documented in this encounter Plan of Treatment Upcoming Encounters Date Type Department Care Team (Late st Contact Info) Description 01/30/2025 10:15 AM EDT Appointment [facility] - Cardiovascular [address] [place] [address] Rodrick Ramires, DO [address], [place] [address] 02/06/2025 11:15 AM EDT Office Visit [facility] Internal Medicine - Family Medicine [address] [place] [phone] Rodrick Ramires, [address], [place] [address] 02/09/2025 1:30 PM EDT Office Visit [facility] [address] [place] [phone] Benoit Sinha MD [address] [place] [address] documented as of this encounter Goals Goal [...] documented as of this encounter Care Teams Custom Harvester Relationship Specialty Start Date End Date Rodrick Ramires DO [address] [facility] [facility] [place] [address] PCP - General Family Medicine 10/16/16 documented as of this encounter
--- OUTSIDE RECORDS SUMMARY | 2025-01-26 13:10 | XMS_ITS | Encounter Summary ---
Author Organization [facility] Address [address] [place] [address] Care Team Providers Care Customs Brokerage Manager Name Role Phone PcpFrannie APRN Primary Care Provider Rodrick Noriega DO Primary Care Provider Source Comments In the event this information is protected by the Federal Confidentiality of Alcohol and Drug AbusePatient Records regulations: The Federal rules restrict any use of the information to criminally investigate or prosecute any alcohol or drug abuse patient.[facility] Encounter Details Date Type Department Care Team (Latest Contact Info) Description 02/01/2003 Prob Sum Review Provider, Cc Social History Tobacco Use Types Packs/Day Years Used Date Smoking Tobacco: Never Assessed Sex and Gender Information Value Date Recorded Sex Assigned at Not on file Legal Sex Male 9:47 AM EST Gender Identity Not on file Sexual Orientation Not on file documented as of this encounter Plan of Treatment Not on file documented as of this encounter Visit Diagnoses Not on filedocumented in this encounter Care Teams Customs Brokerage Manager Relationship Specialty Start Date End Date Frannie Carson APRN PCP - General 05/12/16 11/28/16 Rodrick Ramires DO [address] [place] [address] PCP - General Family Medicine 04/06/19 documented as of this encounter
--- OUTSIDE RECORDS SUMMARY | 2025-01-26 13:10 | XMS_ITS | Encounter Summary ---
Author Organization [facility] [employer] [facility] Address [id number] [place] [address] Care Team Providers Care Public Works Technician Name Role Phone KeylaRodrick Irvin MATAMOROS Primary Care Provider [phone] Reason for Visit * Reason Comments Med Refill Encounter Details Date Type Department Care Team (Late st Contact Info) Description 07/20/2022 Refill [facility] Internal Medicine - Family Medicine [address] [place] [address] Estela Espinoza, ENGINE MONITOR-PUBLIC SPEAKING INSTRUCTOR [address] [place] [address] Urticaria, unspecified; Gastro-esophageal reflux disease without esophagitis; Other specified depressive episodes Social History Tobacco Use Types Packs/Day Years [...] Orientation Straight 01/30/2023 9: 11 PM EDT COVID-19 Exposure Response Date Recorded In the last month, have you been in contact with someone who was confirmed or suspected to have Coronavirus / COVID-19? Yes 07/01/2022 1:56 PM EDT documented as of this encounter Plan of Treatment Upcoming Encounters Date Type Department Care Team (Late st Contact Info) Description 01/30/2025 10:15 AM EDT Appointment [facility] - Cardiovascular [address] [place] [address] Rodrick Ramires, [address], [place] [address] 02/06/2025 11:15 AM EDT [facility] [address] [place] [phone] Rodrick Ramires, [address], [place] [address] 02/09/2025 1:30 PM EDT [facility] [address] [place] [phone] Benoit Sinha MD [address] [place] [address] documented as of this encounter Visit Diagnoses Diagnosis Urticaria, unspecified Gastro-esophageal reflux disease without esophagitis Other specified depressive episodes documented in this encounter Care Teams Public Works Technician Relationship Specialty Start Date End Date Rodrick Ramires DO [address], [place] [address] PCP - General Family Medicine 10/16/16 documented as of this encounter
--- OUTSIDE RECORDS SUMMARY | 2025-01-26 13:10 | XMS_ITS | Encounter Summary ---
Author Organization [facility] Impact Sys tem Address [facility] [id number] [address] [place] [address] Care Team Providers Care Manager English Name Role Phone KeylaRodrick Irvin MATAMOROS Primary Care Provider +[phone] Reason for Visit * Reason Comments Med Refill Encounter Details Date Type Department Care Team (Late st Contact Info) Description 08/04/2022 Refill [facility] Internal Medicine - Family Medicine [address] [place] [address] Estela Espinoza, LEVELING MACHINE OPERATOR-RESEARCH TECH [address] [facility] [place] [address] Radiculopathy, cervical region Social History Tobacco Use Types Packs/Day Years [...] or suspected to have Coronavirus / COVID-19? No / Unsure 08/01/2022 9:58 AM EST documented as of this encounter Plan of Treatment Upcoming Encounters Date Type Department Care Team (Late st Contact Info) Description 01/30/2025 10:15 AM EDT Appointment [facility] - Cardiovascular [address] [place] [address] Rodrick Ramires, [address], [place] [address] 02/06/2025 11:15 AM EDT [facility] Family Medicine [address] [place] [phone] Rodrick Ramires DO [address], [place] [address] 02/09/2025 1:30 PM EDT [facility] [address] [facility] [place] [phone] Beonit Sinha MD [address] [place] [address] documented as of this encounter Visit Diagnoses Diagnosis Radiculopathy, cervical region Brachial neuritis or radiculitis nos documented in this encounter Care Teams Manager English Relationship Specialty Start Date End Date Rodrick Ramires DO [address], [place] [address] PCP - General Family Medicine 10/16/16 documented as of this encounter
--- OUTSIDE RECORDS SUMMARY | 2025-01-26 13:10 | XMS_ITS | Encounter Summary ---
Author Organization [facility] The[facility] Sys tem Address [facility] [id number] [address] [place] [address] Care Team Providers Care Coffee Break Attendant Name Role Phone KeylaRodrick Irvin MATAMOROS Primary Care Provider + [phone] Encounter Details Date Type Department Care Team (Late st Contact Info) Description 12/22/2024 Orders Only [facility] Internal Medicine - Family Medicine [address] [place] [address] Maulik Kulkarni, DAY CARE ATTENDANT Hypoglycemia Social History Tobacco Use Types Packs/Day Years Used Date Smoking Tobacco: Never Smokeless Tobacco: Current Snuff Alcohol Use Standard Drinks/Week Comments No 0 (1 standard drink = 0.6 oz pur e alcohol) [facility] Utilities Answer Date Recorded In [...] Answer Date Recorded Total Score 0 12/15/2024 [facility] of Occupat ional Health - Occupational Stress [...] Recorded Do you need help finding a [facility] career center and/or a training program? [...] Info) Description 01/30/2025 10:15 AM EDT Appointment [facility] - Cardiovascular [address] [place] [address] Rodrick Ramires, DO [address], [place] [address] 02/06/2025 11:15 AM EDT Office Visit [facility] Internal Medicine - Family Medicine [address] [place] [phone] Rodrick Ramires, DO [address], [place] [address] 02/09/2025 1:30 PM EDT Office Visit [facility] Cardiology [address] [place] [address] Benoit Sinha MD [address] [place], [place] [phone] documented as of this encounter Goals Goal Patient Goal Type Associated Problems Recent Progress Patient-Stated? Author Home with self care General Yes Emmy Oates, KELVIN Note: Evaluation of progress towards goal: Patient plans to return home with self care. documented as of this encounter Visit Diagnoses Diagnosis Hypoglycemia Hypoglycemia, unspecified documented in this encounter Additional Health Concerns Assessment Noted Time PHQ-9 Depression Total Score: 0 12/16/19 25 1:05 PM EDT A Body Mass Index follow-up plan has been documented for the patient 03/25/2023 2:33 PM EDT documented as of this encounter Care Teams Coffee Break Attendant Relationship Specialty Start Date End Date Rodrick Ramires DO [address], [place] [address] PCP - General Family Medicine 10/16/16 documented as of this encounter
--- OUTSIDE RECORDS SUMMARY | 2025-01-26 13:10 | XMS_ITS | Encounter Summary ---
Author Organization [email or web address] Sys tem Address [facility] [place][id number] [address] [place] [address] Care Team Providers Care Yarn Man Name Role Phone KeylaRodrick Irvin MATAMOROS Primary Care Provider [phone] Encounter Details Date Type Department Care Team (Late st Contact Info) Description 02/15/2024 [facility]phone [facility] [address] [place] [address] Maulik Kulkarni CMA Social History Tobacco Use Types Packs/Day Years Used Date Smoking Tobacco: Never Smokeless Tobacco: Current Snuff Alcohol Use Standard Drinks/Week Comments No 0 (1 standard drink = 0.6 oz pur e alcohol) PHQ-2 Answer Date Recorded Total Score 0 02/09/2024 Childcare Answer Date Recorded Childcare Unknown 02/09/2019 Employment Answer Date Recorded Employment Unknown 02/09/2019 Hunger Screening Answer Date Recorded Within the past 12 months we worried whether our food would run out before we got money to buy more. Never True 02/09/2024 Within the past 12 months th e food we bought just didn't last and we didn't have money to get more. Never True 02/09/2024 Purpose - Life Answer Date Recorded Purpose and direction in life Unknown Sex and Gender Information Value Date Recorded Sex Assigned at Male 01/30/2023 9:11 PM EDT Legal Sex Male 11:53 AM EDT Gender Identity Male 01/30/2023 9:11 PM EDT Sexual Orientation Straight 01/30/2023 9: 11 PM EDT documented as of this encounter Miscellaneous Notes * Telephone Encounter - Maulik Kulkarni CMA - 02/15/2024 8:05 AM EDT ----- Message from Rodrick Ramires DO sent at 02/12/2024 12:42 PM EDT ----- His lipids are still high. His total cholesterol was 228. His triglycerides are 577. One year ago they were 741. His CMP showed an elevated glucose of 103 but the rest of his CMP was normal. His vitamin-D is very good at 61.5. I would recommend to increase rosuvastatin to 20 mg daily. Continue other medications as before. I will send in a prescription if he agrees documented in this encounter Plan of Treatment Upcoming Encounters Date Type Department Care Team (Late st Contact Info) Description 01/30/2025 10:15 AM EDT Appointment [facility] - Cardiovascular [address] [place] [address] Rodrick Ramires DO [address] [place], [facility] [place] [address] 02/06/2025 11:15 AM EDT [facility] Family Medicine [address] [place] [address] Rodrick Ramires DO [address], [facility] [place] [address] 02/09/2025 1:30 PM EDT Office Visit [facility] Cardiology [address] [facility] 1 [place] [address] Benoit Sinha MD [address] [place] [address] documented as of this encounter Visit Diagnoses Not on filedocumented in this encounter Additional Health Concerns Assessment Noted Time PHQ-9 Depression Total Score: 0 02/09/20 2:26 PM EDT A Body Mass Index follow-up plan has been documented for the patient 03/25/2023 2:33 PM EDT documented as of this encounter Care Teams Yarn Man Relationship Specialty Start Date End Date Rodrick Ramires DO [address] [facility], [place] [address] PCP - General Family Medicine 10/16/16 documented as of this encounter
--- OUTSIDE RECORDS SUMMARY | 2025-01-26 13:10 | XMS_ITS | Encounter Summary ---
Author Organization [facility] [employer] Sys tem Address [facility] [place][id number] [address] [place] [address] Care Team Providers Care Sofa Back Upholsterer Name Role Phone Rodrick Ramires DO Primary Care Provider + [phone] Reason for Visit * Reason Comments Med Refill Encounter Details Date Type Department Care Team (Late st Contact Info) Description 01/25/2025 Refill [facility] Internal Medicine - Family Medicine [address] [place] [address] Rodrick Ramires DO [address] [facility] [place] [address] Gastro-esophageal reflux disease without esophagitis; Other specified depressive episodes; Asthma, unspecified asthma severity, unspecified whether complicated, unspecified whether persistent; Hyperlipidemia, unspecified Social History Tobacco Use Types Packs/Day Years Used Date Smoking Tobacco: Never Smokeless Tobacco: Current Snuff Alcohol Use Standard Drinks/Week Comments No 0 (1 standard drink = 0.6 oz pur e alcohol) [facility] Utilities Answer Date Recorded In the past 12 months has [employer], gas, oil, or water [employer] threatened to shut off services in your [...] Answer Date Recorded Total Score 0 12/15/2024 [facility] of Occupat ional Health - Occupational Stress [...] Recorded Do you need help finding a [facility] career center and/or a training [...] Info) Description 01/30/2025 10:15 AM EDT Appointment [facility] - Cardiovascular [address] [place] [address] Rodrick Ramires, DO [address] [place] [address] 02/06/2025 11:15 AM EDT Office Visit [facility] Internal Medicine - Family Medicine [address] [phone] [facility] DO [address] [facility], [place] [address] 02/09/2025 1:30 PM EDT Office Visit [facility] Cardiology [address] [facility] [address] [place] [address] Benoit Sinha MD [address] [place] [address] documented as of this encounter Goals Goal Patient Goal Type Associated Problems Recent Progress Patient-Stated? Author Home with self care General Yes Emmy Oates, KELVIN Note: Evaluation of progress towards goal: Patient plans to return home with self care. documented as of this encounter Visit Diagnoses Diagnosis Gastro-esophageal reflux disease without esophagitis Other specified depressive episodes Asthma, unspecified asthma severity, unspecified whether complicated, unspecified whether persistent Hyperlipidemia, unspecified documented in this encounter Additional Health Concerns Assessment Noted Time PHQ-9 Depression Total Score: 0 12/16/19 25 1:05 PM EDT A Body Mass Index follow-up plan has been documented for the patient 03/25/2023 2:33 PM EDT documented as of this encounter Care Teams Sofa Back Upholsterer Relationship Specialty Start Date End Date Rodrick Ramires DO [address] [place] [address] PCP - General Family Medicine 10/16/16 documented as of this encounter
--- OUTSIDE RECORDS SUMMARY | 2025-01-26 13:10 | XMS_ITS | Encounter Summary ---
Author Organization [facility] Sys tem Address [facility] [place]-[id number] [address] [place] [address] Care Team Providers Care Lab Analyst Name Role Phone KeylaRodrick Irvin MATAMOROS Primary Care Provider + [phone] Reason for Visit * Reason Comments Med Refill Encounter Details Date Type Department Care Team (Late st Contact Info) Description 12/18/2023 Refill [facility] [address] [place] [address] Belgica Bess APRN-BHAVIN [address] [place] [id number] Social History Tobacco Use Types Packs/Day Years [...] Info) Description 01/30/2025 10:15 AM EDT Appointment [facility] - Cardiovascular [address] [place] [address] Rodrick Ramires DO [address], [place] [address] 02/06/2025 11:15 AM EDT [facility] Family Medicine [address] [place] [address] Rodrick Ramires DO [address], [place] [address] 02/09/2025 1:30 PM EDT [facility] [address] [place] [address] Benoit Sinha MD [address] [place] [address] documented as of this encounter Visit Diagnoses Not on filedocumented in this encounter Additional Health Concerns Assessment Noted Time PHQ-9 Depression Total Score: 0 05/25/20 23 1:07 PM EDT A Body Mass Index follow-up plan has been documented for the patient 03/25/2023 2:33 PM EDT documented as of this encounter Care Teams Lab Analyst Relationship Specialty Start Date End Date Rodrick Ramires DO [address], [place] [address] PCP - General Family Medicine 10/16/16 documented as of this encounter
--- OUTSIDE RECORDS SUMMARY | 2025-01-26 13:10 | XMS_ITS | Encounter Summary ---
Author Organization [employer] s tem Address [facility] [place]-[id number] [address] [place] [address] Care Team Providers Care Measurement And Verification Engineer Name Role Phone SelmaRodrick montelongo Primary Care Provider [phone] Encounter Details Date Type Department Care Team (Late st Contact Info) Description 06/05/2022 [facility]phone [facility] [address] [place] [address] Elizabeth Riggins CMA Social History Tobacco Use Types Packs/Day [...] encounter Miscellaneous Notes * Telephone Encounter - Elizabeth Riggins CMA - 06/05/2022 5:06 PM EDT Patient called because he tested POS for Covid at home. He was coughing during his voice mail but he did not mention any other symptoms. * Telephone Encounter - Rodrick Ramires DO - 06/05/2022 5:06 PM EDT He is low risk. No paxlovid indicated. Treat symptoms * Telephone Encounter - Elizabeth Riggins CMA - 06/05/2022 5:06 PM EDT Spoke with the patient and he is doing better. Just a little bit of a cough right now documented in this encounter Plan of Treatment Upcoming Encounters Date Type Department Care Team (Late st Contact Info) Description 01/30/2025 10:15 AM EDT Appointment [facility] - Cardiovascular [address] [place] [address] Rodrick Ramires DO [address], [place] [address] 02/06/2025 11:15 AM EDT Office Visit [facility] Internal Medicine - Family Medicine [address] [place] [address] Rodrick Ramires DO [address], [facility] [address] 02/09/2025 1:30 PM EDT Office Visit [facility] Cardiology [address] [phone] Benoit Sinha MD [address] [place] [address] documented as of this encounter Visit Diagnoses Not on filedocumented in this encounter Care Teams Measurement And Verification Engineer Relationship Specialty Start Date End Date Rodrick Ramires DO [address], [place] [address] PCP - General Family Medicine 10/16/16 documented as of this encounter
--- OUTSIDE RECORDS SUMMARY | 2025-01-26 13:11 | XMS_ITS | Encounter Summary ---
Author Organization [employer] s tem Address [facility] [id number] [address] [place] [address] Care Team Providers Care Ballpoint Pen Assembly Machine Operator Name Role Phone Keyla Rodrick Irvin MATAMOROS Primary Care Provider [phone] Encounter Details Date Type Department Care Team (Late st Contact Info) Description 01/05/2023 [facility]phone [facility] Family Medicine [address] [place] [address] Estela Espinoza, PAPER PROCESSING MACHINE HELPER-PAINTING TECHNICIAN [address] [facility] [place] [address] Social History Tobacco Use Types Packs/Day Years [...] encounter Miscellaneous Notes * Telephone Encounter - Sayra Torrez - 01/05/2023 12:53 PM EDT Patient is coming in for his wellness and would like labs sent to the [facility]. thanks documented in this encounter Plan of Treatment Upcoming Encounters Date Type Department Care Team (Late st Contact Info) Description 01/30/2025 10:15 AM EDT Appointment [facility] - Cardiovascular [address] [place] [address] Rodrick Ramires DO [address], [place] [address] 02/06/2025 11:15 AM EDT Office Visit [facility] Internal Medicine - Family Medicine [address] [place] [phone] Rodrick Ramires DO [address], [place] [address] 02/09/2025 1:30 PM EDT Office Visit [facility] Cardiology [address] [place] [address] Benoit Sinha MD [address] [place] [address] documented as of this encounter Visit Diagnoses Not on filedocumented in this encounter Care Teams Ballpoint Pen Assembly Machine Operator Relationship Specialty Start Date End Date Rodrick Ramires DO [address], [place] [address] PCP - General Family Medicine 10/16/16 documented as of this encounter
--- OUTSIDE RECORDS SUMMARY | 2025-01-26 13:11 | XMS_ITS | Encounter Summary ---
Author Organization [facility] tem Address [facility] [place][id number] [address] [place] [address] Care Team Providers Care Insulation Hoseman Name Role Phone SelmaRodrick montelongo Irvin MATAMOROS Primary Care Provider + [phone] Reason for Visit * Reason Comments Med Refill Encounter Details Date Type Department Care Team (Late st Contact Info) Description 01/01/2023 Refill [facility] Internal Medicine - Family Medicine [address] [place] [address] Estela Espinoza, WIRE FRAME MAKER-TANK WASHER [address] [facility] [place] [address] Insomnia, unspecified Social History Tobacco Use Types [...] Info) Description 01/30/2025 10:15 AM EDT Appointment [facility] Cardiovascular [address] [place] [address] Rodrick Ramires, DO [address], [place] [address] 02/06/2025 11:15 AM EDT Office Visit [facility] Internal Medicine - Family Medicine [address] [place] [phone] Rodrick Ramires, [address], [place] [address] 02/09/2025 1:30 PM EDT Office Visit [facility] Cardiology [address] [facility] 1 [place] [address] Benoit Sinha MD [address] [place] [address] documented as of this encounter Visit Diagnoses Diagnosis Insomnia, unspecified documented in this encounter Care Teams Insulation Hoseman Relationship Specialty Start Date End Date Rodrick Ramires DO [address], [place] [address] PCP - General Family Medicine 10/16/16 documented as of this encounter
--- OUTSIDE RECORDS SUMMARY | 2025-01-26 13:11 | XMS_ITS | Encounter Summary ---
Author Organization [facility] [employer] Address [facility] [place][id number] [address] [place] [address] Care Team Providers Care Frame Assembler Name Role Phone Keyla Rodrick Bryan DO Primary Care Provider + [phone] Encounter Details Date Type Department Care Team (Late st Contact Info) Description 09/20/2024 Orders Only [facility] Internal Medicine - Family Medicine [address] [place] [address] Ref Prov, [place] [address] Social History Tobacco Use Types Packs/Day Years Used Date Smoking Tobacco: Never Smokeless Tobacco: Current Snuff Alcohol Use Standard Drinks/Week Comments No 0 (1 standard drink = 0.6 oz pur e alcohol) Overall Financial Resource Strain (CARDIA) Answe r [...] medical appointments or from getting medications? No 03/01 In the past 12 months, has l ack of transportation kept you from meetings, work, or from getting things needed for daily living? No 03/23/2024 Housing Instability Answer Date Recorde d Are you worried or concerned that in the next two months you may not have stable housing that you own, rent or stay in as a part of a household? No 03/23/2024 Childcare Answer Date Recorded Childcare Unknown 02/09/2019 Employment Answer Date Recorded Employment Unknown 02/09/2019 Hunger Screening Answer Date Recorded Within the past 12 months we worried whether our food would run out before we got money to buy more. Never True 03/24/2024 Within the past 12 months th e food we bought just didn't last and we didn't have money to get more. Never True 03/24/2024 Purpose - Life Answer Date Recorded Purpose [...] Info) Description 01/30/2025 10:15 AM EDT Appointment [facility] - Cardiovascular [address] [place] [phone] Rodrick Ramires, DO [address] [facility] [place] [address] 02/06/2025 11:15 AM EDT [facility] Family Medicine [address] [phone] [facility] DO [address] [facility] [place] [address] 02/09/2025 1:30 PM EDT Office Visit [facility] Cardiology [address] [facility] [place] [address] Benoit Sinha MD [address] [place] [address] documented as of this encounter Procedures Procedure Name Priority Date/Time Associated Diagnosis Comments CT CERVICAL SPINE WO CONT Routine 09/16/2024 12:39 PM EST documented in this encounter Results * CT cervical spine without contrast (09/16/2024 12:39 PM EST) Anatomical Region Laterality Modality MSK, Neuro, Spine, C-spine, Spine Covera N/A Computed Tomography us Not In System Ref Prov IMG CT ORDERABLES Final R esult documented in this encounter Visit Diagnoses Not on filedocumented in this encounter Additional Health Concerns Assessment Noted Time PHQ-9 Depression Total Score: 0 03/24/20 24 11:09 AM EDT A Body Mass Index follow-up plan has been documented for the patient 03/25/2023 2:33 PM EDT documented as of this encounter Care Teams Frame Assembler Relationship Specialty Start Date End Date Rodrick Ramires DO [address] [facility], [place] [address] PCP - General Family Medicine 10/16/16 documented as of this encounter
--- OUTSIDE RECORDS SUMMARY | 2025-01-26 13:11 | XMS_ITS | Referral Summary ---
Author Organization [facility] Address [address] [place] [address] Care Team Providers Care Inset Cutter Name Role Phone Unavailable Primary Care Provider Unavailabl e Social History Tobacco Use Types Packs/Day Years Used Date Smoking Tobacco: Never Assessed [place] Safety & Environment Answer Date Rec orded Fear of Current or Ex-Partner Not on file Emotionally Abused Not on file 10/22/2023 Physically Abused Not on file 10/22/2023 Sexually Abused Not on file 10/22/2023 Physically or Sexually Abused Not on file Sex and Gender Information Value Date Recorded Sex Assigned at Not on file Gender Identity Not on file Sexual Orientation Not on file Last Filed Vital Signs Vital Sign Reading Time Taken Comments Blood Pressure - - Pulse - - Temperature - - Respiratory Rate - - Oxygen Saturation - - Inhaled Oxygen Concentration - - Weight 83.9 kg (185 lb) 11/06/2021 2:04 PM EST Height 172.7 cm (5' 8 ) 11/06/2021 2:03 PM EST Body Mass Index 28.13 11/06/2021 2:03 PM EST Plan of Treatment Upcoming Encounters Date Type Department Care Team (Late st Contact Info) Description 01/30/2025 3:00 PM EDT Office Visit [facility] [address] [place] [address] Ramesh Bright MD [address] [facility] [place] [address]
--- OUTSIDE RECORDS SUMMARY | 2025-01-26 13:11 | XMS_ITS | Encounter Summary ---
Author Organization [facility] [facility] tem Address [facility] [id number] [address] [place] [address] Care Team Providers Care Aircraft Steel Fabricator Name Role Phone SelmaRodrick montelongo Irvin MATAMOROS Primary Care Provider + [phone] Reason for Visit * Reason Comments Med Refill Encounter Details Date Type Department Care Team (Late st Contact Info) Description 10/11/2022 Refill [facility] Internal Medicine - Family Medicine [address] [place] [address] Estela Espinoza, FIRE EXTINGUISHER REPAIRER INSPECTOR-UNIT MANAGER [employer] [address] [facility] [place] [address] Insomnia, unspecified Social History Tobacco Use Types [...] Info) Description 01/30/2025 10:15 AM EDT Appointment [facility] Cardiovascular [address] [place] [address] Rodrick Ramires, DO [address], [place] [address] 02/06/2025 11:15 AM EDT Office Visit [facility] Internal Medicine - Family Medicine [address] [place] [phone] Rodrick Ramires, [address], [place] [address] 02/09/2025 1:30 PM EDT Office Visit [facility] Card[facility] [address] [facility] [address] [place] [address] Benoit Sinha MD [address] [place] [address] documented as of this encounter Visit Diagnoses Diagnosis Insomnia, unspecified documented in this encounter Care Teams Aircraft Steel Fabricator Relationship Specialty Start Date End Date Rodrick Ramires DO [address], [place] [address] PCP - General Family Medicine 10/16/16 documented as of this encounter
--- OUTSIDE RECORDS SUMMARY | 2025-01-26 13:11 | XMS_ITS | Clinical Summary ---
Author Organization [facility] Address [address] [place] [address] Care Team Providers Care Coppersmith Apprentice Name Role Phone Rodrick Ramires MD Primary Care Provider +[phone] Allergies Active Allergy Reactions Criticality Noted Date Comments Olin Oil Diarrhea,Nausea And Vomiting Medium 07/03/2016 Other Reaction(s): Other: See Comments Other reaction(s): Other: See Comments Ibuprofen Medium 07/03/2016 Other Reaction(s): GI Disturbance, GI Upset, Other (See Comments), Unknown, vomiting Other reaction(s): GI Disturbance Penicillins Hives,Rash Medium 07/03/2016 Prednisone Hives,Other,Shortnes s of breath,Swelling,Palpita tions,Unknown High 07/03/2016 All related Jittery -mainly with IV doses, heart rate goes up with oral. prednisone Medications albuterol (2.5 MG/3ML) 0.083% nebulizer solution Active albuterol HFA 90 mcg/act inhaler Inhale 2 puffs every 6 (six) hours if needed 5 Active atorvastatin (Lipitor) 10 MG tablet Active baclofen (Lioresal) 10 MG tablet Active calcium citrate (Calcitrate) 950 (200 Ca) MG tablet Take 1,900 mg by mouth in the morning and 1,900 mg in the evening and 1,900 mg before bedtime. Active cetirizine (ZyrTEC) 10 MG tablet Take 10 mg by mouth in the morning. Active cholecalciferol (Vitamin D-3) 50 MCG (2000 UT) tablet Take by mouth Daily Active diazePAM (Valium) 10 MG tablet TAKE 1 TABLET BY MOUTH PRIOR TO PROCEDURE 4 Active Docusate Sodium (DSS) 100 MG capsule Take 1 capsule by mouth Daily Active mirtazapine (Remeron) 15 MG tablet Take 15 mg by mouth in the morning. 5 Active omeprazole (PriLOSEC) [address] capsule TAKE 1 CAPSULE BY MOUTH EVERY DAY IN THE MORNING BEFORE BREAKFAST 5 Active oxyCODONE-aceta minophen (Percocet) 5-325 MG tablet Take 1 tablet by mouth 3 (three) times a day as needed Active pregabalin (Lyrica) 50 MG capsule Take 50 mg by mouth in the morning and 50 mg before bedtime. Active traZODone (Desyrel) 50 MG tablet 1 (one) time each day at the same time Active venlafaxine XR (Effexor XR) 150 MG 24 hr capsule Take 150 mg by mouth in the morning. 5 Active hydrOXYzine HCl (Atarax) 10 MG tablet 5 Active meclizine (Antivert) 12.5 MG tablet Take 12.5 mg by mouth 3 (three) times a day as needed 5 Active ciprofloxacin-d exAMETHasone (CiproDEX) otic suspensionIndic ations:Chronic myringitis of right ear Administer 4 drops into the right ear in the morning and 4 drops before bedtime. Do all this for 10 days. 7.5 mL 5 01/07/20 Active Problems Problem Noted Date Diagnosed Date Screening for diabetes mellitus 12/23/2024 Anxiety 12/23/2024 Dizziness 12/23/2024 Dysfunction of right eustachian tube 12/23/2024 Non-suppurative otitis media 12/23/2024 Sensorineural hearing loss, bilateral 12/23/2024 Other specified injuries of right shoulder and upper arm, sequela 12/23/2024 Hypotension due to hypovolemia 11/29/2024 Snuff user 11/29/2024 TIMOTHY (acute kidney injury) 11/28/2024 Class 1 obesity due to exces s calories with serious comorbidity and body mass index (BMI) of 30.0 to 30.9 in adult 02/09/2024 Peyronie's disease 07/15/2023 Overview (12/23/2024): 07/15/23 Having pain no curvature. Acute phase plaque. Already on Voltaren can not add Mobic on top of this. Recommend abstaining from intercourse until pain resolves. Will readdress at follow-up 03/08/24: persistent pain with erection. Reassured that this will typically resolve with a little more time Lower urinary tract symptoms 05/06/2023 Overview (12/23/2024): 07/15/23 Again discussed bladder irritants I think the T is really bothering him. However will plan to start Ditropan and continue Flomax. Follow-up in 6 weeks Start flomax f/u 6 weeks Pvr 33mL IPSS 21/12 Lower urinary tract symptoms without any substantial improvement with tamsulosin or with the addition of oxybutynin extended release. Plan for cysto under anesthesia with possible dilation should a stricture be present Post-traumatic osteoarthritis of both knees 03/01 Sprain of shoulder and upper arm 03/25/2023 Chronic anxiety 07/01/2022 Electrocardiogram abnormal 07/01/2022 Palpitations 07/01/2022 Mixed hyperlipidemia 08/28/2020 Low vitamin D level 02/23/2020 Polyp of sigmoid colon 09/28/2019 Rectal hemorrhage 09/16/2019 Epididymitis 07/18/2019 Esophagitis 03/02/2019 Dysphagia 02/25/2019 Essential hypertension 11/16/2018 Tear of medial meniscus of knee 07/20/2018 Contusion of knee 11/11/2017 Knee joint effusion 11/11/2017 Sprain of knee 11/11/2017 Depressive disorder 10/02/2017 Cervical radiculopathy 03/06/2017 Osteoarthritis 12/17/2016 Obstructive sleep apnea syndrome 2016 Fibromyalgia 08/12/2016 Shoulder pain 08/12/2016 Impingement syndrome of shoulder region 08/07/20 16 Chondromalacia of patella 07/03/2016 Primary osteoarthritis of right knee 07/03/2016 Encounters Date Type Department Care Team Description 01/17/2025 11:20 AM EDT Office Visit [facility] [address] [place] [address] Marleni Love MD Chronic myringitis of right ear (Primary Dx); Dysfunction of right eustachian tube; Foreign body of right ear, initial encounter 01/17/2025 Bamboo flowsheet [facility] [address] [facility] [address] [place] [address] Marleni Love MD 01/17/2025 Travel 12/27/2024 11:30 AM EDT Office Visit [facility] [address] [facility] [address] [place] [address] Marleni Love MD ETD (Eustachian tube dysfunction), bilateral (Primary Dx); Chronic myringitis of right ear 12/27/2024 Travel 12/23/2024 9:20 AM EDT Office Visit [facility] [address] [place] [address] Luciana Escoto MD Hypoglycemia (Primary Dx); Screening for diabetes mellitus 12/23/2024 [employer] flowsheet [facility] [address] [place] [address] Luciana Escoto MD 12/15/2024 [facility] [address] [place] [address] Luciana Escoto MD from Last 3 Months Immunizations Immunization Administration Dates Next Due Hep B, adult 01/25/2014,09/26/2013,07/27/2013 Influenza, injectable, MDCK, preservative free, quadrivalent 08/19/2021,08/27/2019,09/11/2017 Influenza, injectable, quadr ivalent, preservative free 06/11/2018 Influenza, seasonal, injectable 06/13/2019 Influenza, seasonal, injecta ble, preservative free 08/21/2015 Tdap 11/30/2015 Social History Tobacco Use Types Packs/Day Years Used Date Smoking Tobacco: Never Smokeless Tobacco: Current Chew Tobacco Cessation:Ready to Q uit: Not Asked; Counseling Given: Not Answered Alcohol Use Standard Drinks/Week Comments Not Currently [...] Pulse 85 01/17/2025 11:19 AM EDT Temperature 36.7 C (98 F) 12/15/2024 11:04 AM EDT Respiratory Rate 16 12/23/2024 9:21 AM EDT Oxygen Saturation 98% 12/23/2024 9:21 AM EDT Inhaled Oxygen Concentration - - Weight 93 kg (205 lb) 01/17/2025 11:19 AM EDT Height 170.2 cm (5' 7 ) 01/17/2025 11:19 AM EDT Body Mass Index 32.11 01/17/2025 11:19 AM EDT Plan of Treatment Upcoming Encounters Date Type Department Care Team (Late st Contact Info) Description 01/30/2025 1:20 PM EDT Office Visit [facility] [address] [place] [address] Luciana Escoto MD [address] [place] [address] Health Maintenance Due Date Last Done Comments CT Colonography 1976 Colonoscopy 1976 Colorectal Cancer Screening 1976 FIT-DNA 1976 FIT 1976 FOBT 1976 Sigmoidoscopy 1976 Influenza Vaccine (Season Ended) 2025 08/19/2021, 08/27/2019, 06/13/2019, Additional history exists Procedures Procedure Name Priority Date/Time Associated Diagnosis Comments INSULIN-LIKE GROWTH FACTOR 2 Routine 01/06/2025 8:47 AM EDT Hypoglycemia PROINSULIN Routine 12/26/2024 8:19 AM EDT Hypoglycemia HEPATIC FUNCTION PANEL Routine 12/26/2024 8:19 AM EDT Hypoglycemia BASIC METABOLIC PANEL Routine 12/26/2024 8:19 AM EDT Hypoglycemia C PEPTIDE FASTING Routine 12/26/2024 8:1 9 AM EDT Hypoglycemia POCT GLUCOSE Routine 12/23/2024 9:39 AM EDT Screening for diabetes mellitus from Last 3 Months Results * Insulin-like growth factor 2 (01/06/2025 8:47 AM EDT) Blood Venous blood specimen / Unknown Luciana Escoto MD LAB BLOOD ORDERABLES Final Re sult Performing Organization Address [facility] de Phone Number QUEST * C PEPTIDE FASTING (12/26/2024 8:19 AM EDT) Luciana Escoto MD LAB BLOOD ORDERABLES Final Re sult Performing Organization Address [facility] de Phone Number EXTERNAL LAB * Proinsulin (12/26/2024 8:19 AM EDT) Blood Venous blood specimen / Unknown Luciana sEcoto MD LAB BLOOD ORDERABLES Final Re sult Performing Organization Address [facility] de Phone Number QUEST * Hepatic function panel (12/26/2024 8:19 AM EDT) Blood Venous blood specimen / Unknown Result [facility] Luciana Escoto MD LAB BLOOD ORDERABLES Final Re sult Performing Organization Address [facility] de Phone Number QUEST * Basic metabolic panel (12/26/2024 8:19 AM EDT) Blood Venous blood specimen / Unknown Luciana Escoto MD LAB BLOOD ORDERABLES Final Re sult Performing Organization Address [facility] de Phone Number QUEST * (ABNORMAL) POCT glucose manually resulted (12/23/2024 9:39 AM EDT) Glucose Blood, POC 158 mg/dL Blood Capillary blood specimen / Unknown 12/23/2024 9:39 AM EDT Luciana Escoto MD POINT OF CARE TEST ENTER/EDIT ORDERABLES Final Result from Last 3 Months Insurance [employer] Care Teams Coppersmith Apprentice Relationship Specialty Start Date End Date Rodrick Ramires MD [address] [facility], [place] [address] PCP - General Family Medicine 12/27/24
--- OUTSIDE RECORDS SUMMARY | 2025-01-26 13:11 | XMS_ITS | Encounter Summary ---
Author Organization [facility] tem Address [id number] [address] [place] [address] Care Team Providers Care Stud Dairy Cattle Farmer Name Role Phone SelmaRodrick montelongo Irvin MATAMOROS Primary Care Provider + [phone] Reason for Visit * Reason Comments Med Refill Encounter Details Date Type Department Care Team (Late st Contact Info) Description 11/29/[address] [facility] Internal Medicine - Family Medicine [address] [place] [address] Estela Espinoza, WOUND CARE PHYSICIAN-INSPECTOR AND CLIPPER [address] [facility] [place] [address] Hyperlipidemia, unspecified Social History Tobacco Use Types [...] Info) Description 01/30/2025 10:15 AM EDT Appointment [facility] Cardiovascular [address] [place] [address] Rodrick Ramires, DO [address] [place] [address] 02/06/2025 11:15 AM EDT Office Visit [facility] Internal Medicine - Family Medicine [address] [place] [address] Rodrick Ramires, [address], [place] [address] 02/09/2025 1:30 PM EDT Office Visit [facility] Card[facility] [address] [facility] [place] [address] Benoit Sinha MD [address] [place] [address] documented as of this encounter Visit Diagnoses Diagnosis Hyperlipidemia, unspecified documented in this encounter Care Teams Stud Dairy Cattle Farmer Relationship Specialty Start Date End Date Rodrick Ramires DO [address] [place] [address] PCP - General Family Medicine 10/16/16 documented as of this encounter
--- OUTSIDE RECORDS SUMMARY | 2025-01-26 13:11 | XMS_ITS | Encounter Summary ---
Author [facility] Address [id number] [address] [place] [address] Care Team Providers Care Manager Ob Name Role Phone KeylaRodrick Irvin MATAMOROS Primary Care Provider + [phone] Reason for Visit * Reason Comments Med Refill Encounter Details Date Type Department Care Team (Late st Contact Info) Description 11/21/2023 Refill [facility] [address] [place] [address] Belgica Bess APRN-HBAVIN [address] [place] [id number] Social History Tobacco Use Types Packs/Day Years [...] Info) Description 01/30/2025 10:15 AM EDT Appointment [facility] - Cardiovascular [address] [place] [address] Rodrick Ramires DO [address], [place] [address] 02/06/2025 11:15 AM EDT [facility] [address] [place] [address] Rodrick Ramires DO [address], [place] [address] 02/09/2025 1:30 PM EDT [facility] [address] [place] [address] Benoit Sinha MD [address] [place] [address] documented as of this encounter Visit Diagnoses Not on filedocumented in this encounter Additional Health Concerns Assessment Noted Time PHQ-9 Depression Total Score: 0 05/25/20 23 1:07 PM EDT A Body Mass Index follow-up plan has been documented for the patient 03/25/2023 2:33 PM EDT documented as of this encounter Care Teams Manager Ob Relationship Specialty Start Date End Date Rodrick Ramires DO [address], [place] [address] PCP - General Family Medicine 10/16/16 documented as of this encounter
--- OUTSIDE RECORDS SUMMARY | 2025-01-26 13:11 | XMS_ITS | Encounter Summary ---
Author Organization [facility] Address [address] [place] [address] Care Team Providers Care Associate Designer Name Role Phone Rodrick Ramires MD Primary Care Provider + [phone] Encounter Details Date Type Department Care Team ([facility] Contact Info) Description 01/17/2025 Bamboo flowsheet [facility] [address] [facility] [address] [place] [phone] Marleni Love MD [address] [facility] [address] [place], [place] [phone] Social History Tobacco Use Types Packs/Day Years [...] Encounters Date Type Department Care Team (Late Contact Info) Description 01/30/2025 1:20 PM EDT Office Visit [facility] [address] [place] [address] Luciana Escoto MD [address] [place] [address] documented as of this encounter Visit Diagnoses Not on filedocumented in this encounter Care Teams Associate Designer Relationship Specialty Start Date End Date Rodrick Ramires MD [address], [place] [address] PCP - General Family Medicine 12/27/24 documented as of this encounter
--- OUTSIDE RECORDS SUMMARY | 2025-01-26 13:11 | XMS_ITS | Encounter Summary ---
Author Organization [facility] tem Address [facility] [place] [id number] [address] [place] [address] Care Team Providers Care Court Attendant Name Role Phone KeylaRodrick Irvin MATAMOROS Primary Care Provider + [phone] Reason for Visit * Reason Comments Med Refill Encounter Details Date Type Department Care Team (Late st Contact Info) Description 09/03/2022 Refill [facility] Internal Medicine - Family Medicine [address] [place] [address] Estela Espinoza, OPERATING ROOM AIDE-APARTMENT MAINTENANCE SUPERVISOR [address] [facility] [place] [address] BMI 30.0-30.9,adult Social History Tobacco Use Types Packs/Day Years [...] Info) Description 01/30/2025 10:15 AM EDT Appointment [facility] - Cardiovascular [address] [place] [address] Rodrick Ramires DO [address], [place] [address] 02/06/2025 11:15 AM EDT Office Visit [facility] Internal Medicine - Family Medicine [address] [place] [address] Rodrick Ramires, [address], [place] [address] 02/09/2025 1:30 PM EDT Office Visit [facility] [address] [phone] Benoit Sinha MD [address] [place] [address] documented as of this encounter Visit Diagnoses Diagnosis BMI 30.0-30.9,adult documented in this encounter Care Teams Court Attendant Relationship Specialty Start Date End Date Rodrick Ramires DO [address], [place] [address] PCP - General Family Medicine 10/16/16 documented as of this encounter
--- OUTSIDE RECORDS SUMMARY | 2025-01-26 13:11 | XMS_ITS | Encounter Summary ---
Author Organization [facility] Sys tem Address [id number] [address] [place] [address] Care Team Providers Care Bandoleer Packer Name Role Phone Keyla Rodrick Bryan DO Primary Care Provider +[phone] Encounter Details Date Type Department Care Team (Late st Contact Info) Description 10/07/2023 Orders Only [facility] Internal Medicine - Family Medicine [address] [place] [address] External, Scanning Provider Social History Tobacco Use Types Packs/Day Years [...] [facility] - [facility] [address] [place] [phone] Rodrick Ramires DO [address], [place] [address] 02/06/2025 11:15 AM EDT Office Visit [facility] Internal Medicine - Family Medicine [address] [place] [address] Rodrick Ramires DO [address], [place] [address] 02/09/2025 1:30 PM EDT Office Visit [facility] Cardiology [address] [place] [address] Benoit Sinha MD [address] [place] [address] documented as of this encounter Visit Diagnoses Not on filedocumented in this encounter Additional Health Concerns Assessment Noted Time PHQ-9 Depression Total Score: 0 05/25/20 23 1:07 PM EDT A Body Mass Index follow-up plan has been documented for the patient 03/25/2023 2:33 PM EDT documented as of this encounter Care Teams Bandoleer Packer Relationship Specialty Start Date End Date Rodrick Ramires DO [address], [place] [address] PCP - General Family Medicine 10/16/16 documented as of this encounter
--- OUTSIDE RECORDS SUMMARY | 2025-01-26 13:11 | XMS_ITS | Clinical Summary ---
Author Organization [facility] Address [address] [place] [address] Care Team Providers Care Leisure Travel Agent Name Role Phone Unavailable Primary Care Provider [...] Description 01/30/2025 3:00 PM EDT Office Visit [facility] [address] [place] [address] Ramesh Bright MD [address] [facility] [place] [address] Health Maintenance Due Date Last Done Comments CT Colonography 1976 Colonoscopy 1976 Colorectal Cancer Screening 1976 FIT-DNA 1976 FIT 1976 FOBT 1976 Sigmoidoscopy 1976 Pneumococcal Vaccine: Pediatrics (0 to 5 Years) and At-Risk Patients (6 to 64 Years) (1 of 2 - PCV) 1982 Depression Screening 1988 COVID-19 Vaccine (4 - season) 2024 08/19/2021, 12/14/2020, 11/16/2020 Influenza Vaccine (Season Ended) 2025 08/19/2021, 08/27/2019, 06/13/2019, Additional history exists Adult Tetanus 11/29/2025 11/30/2015 Zoster Vaccines (1 of 2) 2026 Hepatitis B Vaccines Completed 01/25/2014, 09/26/2013, 07/27/2013 HIB Vaccines Aged Out No longer eligi ble based on patient's age to complete this topic HPV Vaccines Aged Out No longer eligi ble based on patient's age to complete this topic IPV Vaccines Aged Out No longer eligi ble based on patient's age to complete this topic Meningococcal B Vaccine Aged Out No l onger eligible based on patient's age to complete this topic Meningococcal Vaccine Aged Out No rose axel eligible based on patient's age to complete this topic Rotavirus Vaccines Aged Out No longer eligible based on patient's age to complete this topic
--- OUTSIDE RECORDS SUMMARY | 2025-01-26 13:11 | XMS_ITS | Encounter Summary ---
Author Organization [facility] Address [address] [place] [address] Care Team Providers Care Shredding Machine Operator Name Role Phone Rodrick Ramires MD Primary Care Provider [phone] Encounter Details Date Type Department Care Team (Latest Contact Info) Description 01/17/2025 Travel Social History Tobacco Use Types Packs/Day Years [...] EDT Office Visit [facility] [address] [place] [address] Luciana Escoto MD [address] [place] [address] documented as of this encounter Visit Diagnoses Not on filedocumented in this encounter Care Teams Shredding Machine Operator Relationship Specialty Start Date End Date Rodrick Ramires MD [address] [facility] [place] [address] PCP - General Family Medicine 12/27/24 documented as of this encounter
--- NOTE | 2025-01-26 13:50 | PM.CN ---
Consult Note: HPI Data of Consult Patient: known to practice within the last 3 years Requesting Physician: Anaid Phelps NP Primary Care Provider: GOLDEN RICHARDSON Consult Narrative Reason for consult: neck pain Narrative: 49yom who presents for assessment. longstanding neck and bilateral ue pain. imaging shows multilevel stenosis and spondylosis. continues in series of provider directed home exercises >6 weeks, without significant benefit. uses percocet, diclofenac and lyrica. denies adverse med side effects. pain today 7/10 increasing to 10/10 with everything. pt noticing increased numbness tingling and weakness to BUE since last visit, folllowing with NS for evaluation. unfortunately [facility] denied prior cervical SHEFALI request, was not able to complete bilateral C5-6 TFESI as [facility] will not cover TFESIs. cc:: CC: Aanid Phelps NP Review of Systems ROS Status of ROS 10 or more systems reviewed and unremarkable except as noted in history and below Musculoskeletal Reports: neck pain PFSH PFS Medical History (Updated 05/18/24 @ 14:03 by Eliz Swift RN) Osteoarthritis ?M19.90 - Unspecified osteoarthritis, unspecified site (ICD-10) Carpal tunnel syndrome ?G56.00 - Carpal tunnel syndrome, unspecified upper limb (ICD-10) Acid reflux ?K21.9 - Gastro-esophageal reflux disease without esophagitis (ICD-10) Enlarged prostate ?N40.0 - Benign prostatic hyperplasia without lower urinary tract symptoms (ICD-10) Asthma ?J45.909 - Unspecified asthma, uncomplicated (ICD-10) HTN (hypertension) ?I10 - Essential (primary) hypertension (ICD-10) Surgical History History of vasectomy ?Z98.52 - Vasectomy status (ICD-10) History of myringotomy ?Z98.890 - Other specified postprocedural states (ICD-10) History of shoulder surgery ?Z98.890 - Other specified postprocedural states (ICD-10) Hx of tonsillectomy ?Z90.89 - Acquired absence of other organs (ICD-10) History of knee surgery ?Z98.890 - Other specified postprocedural states (ICD-10) History of neck surgery ?Z98.890 - Other specified postprocedural states (ICD-10) Meds Home Medications and Allergies Home Medications ?Medication ?Instructions ?Recorded ?Confirmed ?Type atorvastatin 10 mg tablet 10 mg PO DAILY 05/13/23 05/23/24 History cetirizine 10 mg tablet 10 mg PO DAILY PRN allergy symptoms 05/13/23 05/23/24 History cholecalciferol (vitamin D3) 25 25 mcg PO DAILY 05/13/23 05/23/24 History mcg (1,000 unit) capsule (Vitamin D3) docusate sodium 100 mg capsule 100 mg PO DAILY 05/13/23 05/23/24 History hydroxyzine HCl 10 mg tablet 10 mg PO DAILY 05/13/23 05/23/24 History lisinopril 20 1 tab PO DAILY 05/13/23 05/23/24 History mg-hydrochlorothiazide 12.5 mg tablet omeprazole 20 mg capsule,delayed 20 mg PO DAILY 05/13/23 05/23/24 History release tamsulosin 0.4 mg capsule (Flomax) 0.4 mg PO DAILY 05/13/23 05/23/24 History venlafaxine 150 mg 150 mg PO DAILY 05/13/23 05/23/24 History capsule,extended release 24 hr (Effexor XR) diclofenac sodium 75 mg 75 mg PO BID PRN pain #60 tabs 04/27/24 05/23/24 Rx tablet,delayed release tizanidine 4 mg tablet 4 mg PO TID PRN muscle spasticity 07/26/24 Rx #90 tabs diclofenac sodium 75 mg 75 mg PO BID PRN pain #60 tabs 11/02/24 Rx tablet,delayed release oxycodone-acetaminophen 5 mg-325 See Rx Instructions .Route 11/02/24 Rx mg tablet (Percocet) .COMPLEX PRN pain #130 tabs pregabalin 100 mg capsule (Lyrica) See Rx Instructions .Route 11/02/24 Rx .COMPLEX #120 caps tizanidine 4 mg tablet 4 mg PO TID PRN muscle spasticity 11/02/24 Rx #90 tabs oxycodone-acetaminophen 5 mg-325 See Rx Instructions .Route 11/24/24 Rx mg tablet (Percocet) .COMPLEX PRN pain #130 tabs pregabalin 200 mg capsule (Lyrica) 200 mg PO BID #60 caps 11/24/24 Rx oxycodone-acetaminophen 5 mg-325 See Rx Instructions .Route 12/28/24 Rx mg tablet (Percocet) .COMPLEX PRN pain #130 tabs pregabalin 200 mg capsule (Lyrica) 200 mg PO BID #60 caps 12/28/24 Rx Allergies Allergy/AdvReac Type Severity Reaction Status Date / Time corn Allergy Vomiting Verified 05/23/24 09:22 Penicillins Allergy Hives Verified 05/23/24 09:22 ibuprofen AdvReac Nausea Verified 05/23/24 09:22 prednisone AdvReac Palpitation Verified 05/23/24 09:22 s Exam Constitutional Documenting provider has reviewed patient's vital signs: yes Common normals: no apparent distress, oriented x3, healthy appearing, alert and well nourished General appearance: cooperative HENMT Common normals: normocephalic, hearing grossly normal bilaterally and moist oral mucous membranes Head and scalp: normocephalic Eye Common normals: PERRL Pupil: PERRL Neck & C-Spine Common normals: full ROM General: normal visual inspection Cervical spine: pain with cervical ROM, cervical spine tenderness and paracervical muscle tenderness Other: positive facet loading positive spurlings strength 4/5 in BUE decreased sensation C4,5,6 Chest Common normals: inspection of chest normal Respiratory Common normals: normal respiratory effort, no retractions and no use of accessory muscles Neuro Common normals: oriented x3 Sensorium/orientation: alert Motor exam: strength 5/5 throughout and no movement abnormalities noted Psych Common normals: mental status grossly normal, thought process normal, cooperative, affect normal, speech normal and activity/motor behavior normal Speech: normal speech Thought process: normal thought process Results Additional Findings Additional findings: If on a controlled substance or opioids, I have checked an [place] report on this patient and there are no aberrancies noted in the prescribing history.??If on a controlled substance or opioid a drug screen was completed and reviewed within the last year, and if there has not been a drug screen completed we ordered one today to monitor higher risk, state monitored pain medication use. As part of providing excellent, safe, comprehensive care, the following was completed at our patient's visit: 1. A medication reconciliation and review to ensure accurate knowledge of current/active medications, including asking our patients to inform us about any [id number] medications or herbal remedies/nutritional supplements/alternative remedies. 2. A review to specifically ensure our patients have had annual screening for screening for depression, screening for tobacco use, and screening for unhealthy alcohol use. For concerning screenings had a discussion with the patient, provided patient education, and recommended follow-up with primary care provider when appropriate. If patient noted with a risk of falling, they received education on strength, gait, and balance training to prevent future risk of falling. Portions of this note may have been carried over from the previous visit and updated as appropriate. Please note this office utilizes paper charting in addition to the electronic medical record. A list of current medications, vitals, and PMH is available there as the clinical staff outside of myself do not have access to [employer] charting during the clinic day operations. As part of providing quality comprehensive care the current medications, vitals, and PMH were reviewed in the paper chart. Assessment and Plan Assessment and Plan (1) Displacement of intervertebral disc at C4-C5 level: (2) Displacement of intervertebral disc at C5-C6 level: (3) Chronic prescription opiate use: Assessment and Plan: I feel these medications are improving the patient's quality of life and allow them to tolerate activities of daily living as well as participate in recreational activity.? The patient does not report intolerable side effects. The patient is NOT opioid naive and non-pharmacologic and non-opioid treatment has failed to significantly relieve the patient's pain and improve functionality. The patient has a diagnosis that is related to a somatic or visceral pain etiology. ? ?? I reviewed with the patient the potential risks and side effects with the use of? opioid medications including but not limited to respiratory depression,? sedation, and even . Within the last 12 months I have verified the patient has access to naloxone should? these effects occur. The patient was advised to let? their family know they had Naloxone in case they would need to administer? the medication. I advised the patient to avoid the use of any other? sedation substances including alcohol, THC, and benzodiazepines while? taking opioid medications due to the risk of compounding side effects and? detrimental outcomes. within the last 12 months I have reviewed the [employer], pain treatment agreement and urine drug screen.? ?? A drug screen was completed within the last year, and no aberrancies were noted regarding their use of controlled substances. The patient understands they are subject to the terms and conditions of the pain contract that they have signed. ? ?? I have checked an [place] report on this patient today and there are no aberrancies noted in the prescribing history.? Plan continue f/u with NS, we recommend spinal cord stimulator trial if pt non surgical continue HEP as tolerated continue current medications, reporting mild pain relief and functional improvement without side effects f/u 3 months, sooner if needed
== END 2025-01-26 13:08 | disposition home or self-care (01) ==
PROVIDERS: PCP Family Medicine; Visit Provider Nurse Practitioner
DX: Z79.891 Long term (current) use of opiate analgesic (principal)
CPT/HCPCS: G0463

== ENCOUNTER 2025-04-27 12:59 | Outpatient (OUT) | payer OTHER, SELFPAY ==
--- OUTSIDE RECORDS SUMMARY | 2025-04-27 13:21 | XMS_ITS | CCD ---
Author Organization 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 Helper Name Role Phone RODRICK RICHARDSON Primary Care Unavailable RODRICK RICHARDSON Referring Unavailable ELANNIEFPierre ALMA K Attending Unavailable ALMA LEVINE Admitting Unavailable MISC, DR KELLEY Admitting Unavailable Greta Lockhart Consulting Unavailable FURLONG, DR RODRICK Bryan Primary Care Unavailable MISC, DR KELLEY Attending Unavailable SCHLIESSER, DR JEFFERS Consulting Unavailable PECK ., DR SHAN Ramachandran Attending Unavailable PECK ., DR SHAN Ramachandran Admitting Unavailable FREEMAN ., ISAIAH Consulting Unavailable DINA, DR ESTELA Heredia Primary Care Unavailable PECK ., DR SHAN Ramachandran Attending Unavailable FREEMAN ., ISAIAH Consulting Unavailable DINA, DR ESTELA Heredia Primary Care Unavailable PECK ., DR SHAN Ramachandran Admitting Unavailable FREEMAN ., ISAIAH Consulting Unavailable DINA, DR ESETLA Heredia Primary Care Unavailable PECK ., DR SHAN Ramachandran Attending Unavailable PECK ., DR SHAN Ramachandran Admitting Unavailable LAKSHMIPATHY ., JAIME Attending Sherie vailable LAKSHMIPATHY ., NARHAILEY Admitting Sherie vailable FREEMAN ., ISAIAH Consulting Unavailable FURCRUZ, DR RODRICK Bryan Primary Care Unavailable LAKSHMIPATHY ., JAIME Consulting Sherie vailable PECK ., DR SHAN Ramachandran Attending Unavailable FREEMAN ., ISAIAH Consulting Unavailable DINA, DR ESTELA Heredia Primary Care Unavailable PECK ., DR SHAN Ramachandran Admitting Unavailable LAKSHMIPATHY ., NARENDTYLER Attending Sherie vailable LAKSHMIPATHY ., CAMERONENDTYLER Admitting Sherie vailable FURLONG, DR RODRICK Bryan Primary Care Unavailable LAKSHMIPATHY ., NARENDRANATH Consulting Sherie vailable LAKSHMIPATHY ., NARENDLEEATH Attending Sherie vailable LAKSHMIPATHY ., NARENDTYLER Admitting Sherie vailable FURLONG, DR FRANKS G Primary Care Unavailable LAKSHMIPATHY ., NARENDLEEATH Attending Sherie vailable LAKSHMIPATHY ., NARSARAHATH Admitting Sherie vailable Greta Lockhart Consulting Unavailable FURLONG, DR RODRICK Bryan Primary Care Unavailable LAKSHMIPATHY ., JAIME Consulting Sherie vailable SCHAILIN, DR JEFFERS Attending Unavailable MARIAM, DR JEFFERS Admitting Unavailable Greta Lockhart Consulting Unavailable FURLOREGINALD, DR RODRICK Bryan Primary Care Unavailable SCHJEANNEER, DR JEFFERS Consulting Unavailable RODRICK RICHARDSON Primary Care Unavailable MUHALEIGHI, MARY Referring Unavailable Erma SALAZAR, Karissa Lopez Attending Unavailable Erma SALAZAR, Androwdy Lopez Attending Unavailable Erma SLAAZAR, Karissa Lopez Attending Unavailable MUFTI, MARY Referring Unavailable MARY MONZON Attending Unavailable RODRICK RICHARDSON Primary Care Unavailable Furlong Rodrick MATAMOROS Primary Care Provider [phone] Angelolong Rodrick MATAMOROS Primary Care Provider RODRICK RICHARDSON Primary Care Unavailable YON LIRA Attending Unavailable YON LIRA Referring Unavailable Furlong Rodrick MATAMOROS Primary Care Provider RODRICK RICHARDSON Referring Unavailable RODRICK RICHARDSON Primary Care Unavailable RODRICK RICHARDSON Referring Unavailable ANGELOLORODRICK PULIDO Primary Care Unavailable Unavailable Primary Care Provider Rodrick Noriega MD Primary Care Provider [phone] LUCIANA ESCOTO Attending Unavailable LUCIANA ESCOTO Referring Unavailable TIMMIS, SUSAN H Attending Unavailable RODRICK RICHARDSON Referring Unavailable TIMMIS, SUSAN H Attending Unavailable LUCIANA ESCOTO Attending Unavailable RODRICK RICHARDSON Attending Unavailable RODRICK RICHARDSON Referring Unavailable RODRICK RICHARDSON Primary Care Unavailable SUZANNE NGUYEN Attending Unavailable RODRICK RICHARDSON Referring Unavailable ANGELOLONGRODRICK Primary Care Unavailable RODRICK RICHARDSON Attending Unavailable RODRICK RICHARDSON Referring Unavailable FURLONG, RODRICK G Primary Care Unavailable FURLONG, RODRICK G Attending Unavailable FURLONG, RODRICK G Referring Unavailable FURLONG, RODRICK G Primary Care Unavailable FURLONG, RODRICK G Attending Unavailable FURLONG, RODRICK G Referring Unavailable FURLONG, RODRICK G Primary Care Unavailable FURLONG, RODRICK G Referring Unavailable FURLONG, RODRICK G Primary Care Unavailable FURLONG, RODRICK G Referring Unavailable FURLONG, RODRICK G Primary Care Unavailable FURLONG, RODRICK G Referring Unavailable FURLONG, RODRICK G Primary Care Unavailable FURLONG, RODRICK G Referring Unavailable FURLONG, RODRICK G Primary Care Unavailable DELTA REN Attending Unavailable DELTA REN Referring Unavailable FURLONG, RODRICK G Primary Care Unavailable DELTA REN Referring Unavailable FURLONG, RODRICK G Primary Care Unavailable SUZANNE NGUYEN Referring Unavailable FURLONG, RODRICK G Primary Care Unavailable FURLONG, RODRICK G Primary Care Unavailable JEOVANY BERRY Admitting Unavailable JEOVANY BERRY Attending Unavailable FURLONG, RODRICK G Attending Unavailable FURLONG, RODRICK G Referring Unavailable FURLONG, RODRICK G Primary Care Unavailable FURLONG, RODRICK G Referring Unavailable FURLONG, RODRICK G Primary Care Unavailable FURLONG, RODRICK G Referring Unavailable FURLONG, RODRICK G Primary Care Unavailable FURLONG, RODRICK G Attending Unavailable FURLONG, RODRICK G Referring Unavailable FURLONG, RODRICK G Primary Care Unavailable FURLONG, RODRICK G Attending Unavailable FURLONG, RODRICK G Referring Unavailable FURLONG, RODRICK G Primary Care Unavailable FURLONG, RODRICK G Referring Unavailable FURLONG, RODRICK G Primary Care Unavailable MOUKARBEL KAI Narvaez Referring Unavailable FURLONG, RODRICK G Primary Care Unavailable MOUKARBEL KAI Narvaez Referring Unavailable FURLONG, RODRICK G Primary Care Unavailable KARLUKAKAI MERRILL Referring Unavailable MOUKARBELKAI Attending Unavailable Allergies Allergy Classification Reported Allergen(s) Allergy Type Date of Onset Reaction(s) Facility (20 sources) corn extract; Translations: [CORN] Drug Allergy 6 Diarrhea [facility] Repository (20 sources) Ibuprofen; Translations: [IBUPROFEN] Drug Allergy 6 GI Disturbance, Other (See Comments) [facility] Rep[facility] (6 sources) Penicillins; Translations: [PENICILLINS] Drug allergy (disorder) 5 [facility] Rep[facility] (20 sources) predniSONE; Translations: [PREDNISONE] Drug Allergy 6 Tachycardia, Hives, Shortness Of Breath, Swelling, Other (See Comments), Other, Palpitations, Unknown [facility] Repository (1 source) [place] Containing Products Drug allergy (disorder) [facility] Repository (20 sources) Penicillins Propensity to adverse reactions to drug 6 Hives, Rash [facility] (10 sources) [place] Oil; Translations: [CORN OIL] Drug Allergy 6 Diarrhea, Nausea And Vomiting [facility] [employer] Phone: (17 sources) Penicillins Propensity to adverse reactions to drug 7 Hives [facility] (10 sources) Penicillins Drug Allergy 6 Hives, Rash [facility] Medications Current Medications Medication Drug Class(es) Dates [...] Active take 1 tablet by yuki th three times daily as needed oxyCODONE-acetaminophen (Percocet) 5-325 MG tablet Take 1 tablet by mouth 3 (three) times a day as needed Active take 1 tablet by yuki th every four hours as needed for pain oxyCODONE-acetaminophen (PERCOCET) 5-325 mg per tablet Take 1 tablet by mouth every 4 (four) hours as needed for pain. Active [id number] actuat albuterol 0.09 mg/actuat metered dose inhaler (20 sources) beta2-Adrenergic Agonist Start: 01-25-2025 take 2 puff(s) by inhalation every six hours as needed for wheezing albuterol (PROVENTIL HFA;VENTOLIN HFA) 90 mcg/actuation inhaler Indications: Asthma, unspecified asthma severity, unspecified whether complicated, unspecified whether persistent INHALE 2 PUFFS EVERY 6 HOURS NEEDED FOR WHEEZING 8 g 1 01/25/2025 Active Start: 12-15-2024 take 2 puff(s) by in halation every six hours albuterol HFA 90 mcg/act inhaler Inhale 2 puffs every 6 (six) hours if needed 12/15/2024 Active Start: 12-15-2024 End: 01-25-2025 take 2 puff(s) by inhalation every six hours as needed for wheezing albuterol (PROVENTIL HFA;VENTOLIN HFA) 90 mcg/actuation inhaler Indications: Asthma, unspecified asthma severity, unspecified whether complicated, unspecified whether persistent Inhale 2 puffs every 6 (six) hours as needed for wheezing. 18 g 1 12/15/2024 01/25/2025 Discontinued albuterol (2.5 M G/3ML) 0.083% nebulizer solution Active End: 12-15-2024 take 2 puff(s) by inhalation every six hours as needed for wheezing albuterol (PROVENTIL HFA;VENTOLIN HFA) 90 mcg/actuation inhaler Inhale 2 puffs every 6 (six) hours as needed for wheezing. 12/15/2024 Discontinued (Reorder) atorvastatin 10 mg oral tablet (10 sources) HMG-CoA Reductase Inhibitor atorvastatin (Lipitor) 10 MG tablet Active calcium carbonate 1250 mg oral tablet (1 source) Start: 9 take 1 tablet by mouth three times daily calcium elemental (OSCAL) 500 MG TABS tablet TAKE ONE TABLET BY MOUTH THREE TIMES DAILY 3 06/16/2019 Active calcium citrate 950 mg oral tablet (20 sources) Start: 3 take 2 tablets by [...] by mouth 2 times daily 10/30/2022 Active take 1 tablet by yuki th in the morning, then take 1 tablet by mouth in the evening, then take 1 tablet by mouth at bedtime calcium citrate (Calcitrate) 950 (200 Ca) MG tablet Take 1,900 mg by mouth in the morning and 1,900 mg in the evening and 1,900 mg before bedtime. Active cetirizine hydrochloride 10 mg oral tablet [...] BY MOUTH EVERY DAY 3 06/16/2019 Active cholecalciferol, vitamin D3, 2,000 units tablet Active ciprofloxacin 500 mg oral tablet (1 source) Quinolone Antimicrobial Start: 07-10-2019 take 1 tablet by mouth every twelve hours ciprofloxacin (CIPRO) 500 MG tablet take 1 tablet by mouth every 12 hours 0 07/10/2019 Active ciprofloxacin 3 mg/ml / dexamethasone 1 mg/ml otic suspension (2 sources) Corticosteroid, Quinolone Antimicrobial Start: 12-27-2024 End: 01-06-2025 ciprofloxacin-dexAME THasone (CiproDEX) otic suspension Indications: Chronic myringitis of right ear Administer 4 drops into the right ear in the morning and 4 drops before bedtime. Do all this for 10 days. 7.5 mL 12/27/2024 01/06/2025 Active cyclobenzaprine hydrochloride 5 mg oral tablet (1 source) Muscle Relaxant Start: 06-16-2019 take 1 tablet by mouth three times daily as needed for muscle spasms cyclobenzaprine (FLEXERIL) 5 MG tablet TAKE ONE TABLET BY MOUTH THREE TIMES DAILY NEEDED FOR MUSCLE SPASMS 0 06/16/2019 Active diazePAM 10 mg oral tablet (11 sources) Benzodiazepine Start: 06-06-2024 Diazepam Active MG PO June 06, 2024 12:00am Start: 05-13-2024 diazePAM (Abdoul um) 10 MG tablet TAKE 1 TABLET BY MOUTH PRIOR TO PROCEDURE 05/13/2024 Active diclofenac sodium 75 mg delayed release [...] tablet by mouth daily 0 04/25/2019 Active 14 actuat fluticasone furoate 0.1 mg/actuat dry powder inhaler (10 sources) Corticosteroid Start: 12-26-2024 take 1 puff(s) by inhalation in the morning fluticasone furoate (ARNUITY ELLIPTA) 100 mcg/actuation blister with device Inhale 1 puff in the morning. 30 each 5 12/26/2024 Active fluticasone (FIFI NASE) 50 MCG/ACT nasal spray Active hydroCHLOROthiazide 12.5 mg / lisinopril 20 mg oral tablet (20 sources) Thiazide Diuretic, Angiotensin Converting Enzyme Inhibitor Start: 06-06-2024 Lisinopril-Hydrochlorothiazi de Active TAB PO June 06, 2024 12:00am Start: 07-08-2023 End: 09-09-2024 take 1 tablet by mouth once daily lisinopril-hydroCHLOROthiazide (PRINZIDE,ZESTORETIC) 20-12.5 mg per tablet Indications: Essential (primary) hypertension take 1 tablet by mouth every day 90 tablet 1 03/15/2024 Active hydrOXYzine hydrochloride 10 mg oral tablet (20 sources) Antihistamine Start: 02-23-2025 take 1 tablet by mouth once daily hydrOXYzine (ATARAX) 10 mg tablet Indications: Urticaria, unspecified TAKE 1 TABLET BY MOUTH EVERY DAY AT NIGHT 90 tablet 1 02/23/2025 Active Start: 06-06-2024 Hydroxyzine Hc l Active MG PO June 06, 2024 12:00am Start: 05-22-2019 End: 02-23-2025 take 1 tablet by mouth once daily hydrOXYzine (ATARAX) 10 mg tablet Indications: Urticaria, unspecified TAKE 1 TABLET BY MOUTH EVERY DAY AT NIGHT 90 tablet 1 09/09/2024 02/23/2025 Discontinued ketoconazole 20 mg/ml medicated shampoo (20 sources) Azole Antifungal Start: 04-11-2023 ketoconazole (NIZORAL) 2 % shampoo 04/11/2023 Active Start: 04-11-2023 ketoconazole ( NIZORAL) 2 % shampoo APPLY TOPICALLY 3 TIMES A WEEK 04/11/2023 Active ketorolac tromethamine 10 mg oral tablet (1 source) Nonsteroidal Anti-inflammatory Drug, Cyclooxygenase Inhibitor Start: 07-18-2019 take 1 tablet by mouth every six hours as needed for pain ketorolac (TORADOL) 10 MG tablet Take 1 tablet by mouth every 6 hours as needed for Pain 10 tablet 07/18/2019 Active lisinopril 10 mg oral tablet (1 source) Angiotensin Converting Enzyme Inhibitor Start: 04-11-2025 take 1 tablet by mouth in the morning lisinopriL (PRINIVIL,ZESTRIL) 10 mg tablet Take 1 tablet (10 mg total) by mouth in the morning. 30 tablet 1 04/11/2025 Active meclizine hydrochloride 12.5 mg oral tablet (20 sources) Antiemetic Start: 11-29-2024 take 1 tablet by mouth three times daily as needed for dizziness meclizine (ANTIVERT) 12.5 mg tablet Take 1 tablet (12.5 mg total) by mouth 3 (three) times a day as needed for dizziness. 30 tablet 11/29/2024 Active Methylprednisolone (1 source) Corticosteroid Start: 06-06-2024 Methylprednisolone Active MG PO June 06, 2024 12:00am mirtazapine 15 mg oral tablet (20 sources) Start: 06-06-2024 Mirtazapine Active MG PO June 06, 2024 12:00am Start: 07-08-2023 End: 12-19-2024 take 1 tablet by mouth once daily mirtazapine (REMERON) 15 mg tablet Indications: Insomnia, unspecified TAKE 1 TABLET BY MOUTH EVERY DAY 90 tablet 1 12/19/2024 Active omeprazole 20 mg delayed release oral capsule (20 sources) Proton Pump Inhibitor Start: 06-06-2024 Omeprazo le Active MG PO June 06, 2024 12:00am Start: 03-31-2023 End: 01-25-2025 take 1 capsule by mouth once daily before breakfast omeprazole (PriLOSEC) 20 mg capsule Indications: Gastro-esophageal reflux disease without esophagitis TAKE 1 CAPSULE BY MOUTH EVERY DAY IN THE MORNING BEFORE BREAKFAST 90 capsule 01/25/2025 Active pregabalin (20 sources) Start: 06-06-2024 Pregabalin Act ryder MG PO June 06, 2024 12:00am Start: 06-27-2019 take 1 capsule by mo uth three times daily pregabalin (LYRICA) 100 MG capsule Take 1 capsule by mouth 3 times daily. 2 06/27/2019 Active take 1 capsule by mo uth four times daily pregabalin (LYRICA) 100 mg capsule Take 1 capsule (100 mg total) by mouth. 4 times a day Active End: 02-06-2025 take 1 capsule by mouth in the morning, then take 1 capsule by mouth at bedtime pregabalin (LYRICA) 200 mg capsule Take 1 capsule (200 mg total) by mouth in the morning and 1 capsule (200 mg total) before bedtime. 02/06/2025 Discontinued (Dose adjustment) take 1 capsule by mo uth in the morning pregabalin (Lyrica) 50 MG capsule Take 50 mg by mouth in the morning and 50 mg before bedtime. Active End: 12-15-2024 pregabalin (LYRICA) 50 mg ca psule Take 2 capsules (100 mg total) by mouth in the morning and 2 capsules (100 mg total) at noon and 2 capsules (100 mg total) before bedtime. 12/15/2024 Discontinued (Dose adjustment) rosuvastatin calcium 10 mg oral tablet (20 sources) HMG-CoA Reductase Inhibitor Start: 06-06-2024 Rosuvastatin Active MG PO June 06, 2024 12:00am Start: 11-30-2022 End: 01-25-2025 take 1 tablet by mouth once daily in the morning rosuvastatin (CRESTOR) 10 mg tablet Indications: Hyperlipidemia, unspecified TAKE 1 TABLET (10 MG TOTAL) BY MOUTH EVERY MORNING. 90 tablet 1 01/25/2025 Active tiZANidine 4 mg oral tablet (20 sources) Central alpha-2 Adrenergic Agonist Start: 06-06-2024 Tizanidine Active MG PO June 06, 2024 12:00am Start: 12-18-2023 End: 02-06-2025 tiZANidine (ZANAFLEX) 4 mg t ablet Take 1 tablet (4 mg total) by mouth as needed in the morning and 1 tablet (4 mg total) as needed at noon and 1 tablet (4 mg total) as needed in the evening for muscle spasms. 12/18/2023 02/06/2025 Discontinued (Side effects) Start: 12-18-2023 tiZANidine (ZA NAFLEX) 4 mg tablet Take 1 tablet (4 mg total) by mouth. 12/18/2023 Active traZODone hydrochloride 50 mg oral tablet (10 sources) Serotonin Reuptake Inhibitor traZODone (Desyrel) 50 MG tablet 1 (one) time each day at the same time Active 24 hr venlafaxine 150 mg extended release oral capsule (20 sources) Serotonin and Norepinephrine Reuptake Inhibitor Start: 06-06-2024 Venlafaxine Active MG PO June 06, 2024 12:00am Start: 03-14-2024 End: 01-25-2025 take 1 capsule by mouth every twenty-four hours in the morning venlafaxine XR (EFFEXOR-XR) 150 mg 24 hr capsule Indications: Other specified depressive episodes TAKE 1 CAPSULE (150 MG TOTAL) BY MOUTH IN THE MORNING 90 capsule 01/25/2025 Active Start: 05-17-2019 End: 03-14-2024 take 1 capsule by mouth once daily venlafaxine XR (EFFEXOR-XR) 150 mg 24 hr capsule Indications: Other specified depressive episodes TAKE 1 CAPSULE BY MOUTH EVERY DAY 90 capsule 1 09/28/2023 Active Completed/Discontinued Medications Medication Drug Class(es) Dates Sig (Normalized) Sig (Original) baclofen 20 mg oral tablet (20 sources) gamma-Aminobutyri c Acid-ergic Agonist Start: 03-17-2023 End: 12-15-2024 baclofen (LIORESAL) 20 mg tablet 03/17/2023 12/15/2024 Discontinued (Therapy completed) baclofen (Liores al) 10 MG tablet Active cefdinir 300 mg oral capsule (2 sources) Cephalosporin Antibacterial Start: 11-29-2024 End: 12-06-2024 take 2 capsules by mouth in the morning cefDINIR (OMNICEF) 300 mg capsule Take 2 capsules (600 mg total) by mouth in the morning for 7 days. 14 capsule 11/29/2024 12/06/2024 24 hr oxybutynin chloride 10 mg extended release oral tablet (20 sources) Cholinergic Muscarinic Antagonist Start: 06-06-2024 Oxybutynin Chloride Active MG PO June 06, 2024 12:00am Start: 04-10-2024 End: 02-06-2025 take 1 tablet by mouth once daily in the morning oxybutynin XL (DITROPAN-XL) 10 mg 24 hr tablet TAKE 1 TABLET BY MOUTH EVERY DAY IN THE MORNING 90 tablet 1 10/07/2024 02/06/2025 Discontinued (Therapy completed) Start: 07-15-2023 End: 03-08-2024 take 1 tablet by mouth every twenty-four hours in the morning oxybutynin XL (DITROPAN-XL) 10 mg 24 hr tablet TAKE 1 TABLET BY MOUTH IN THE MORNING 90 tablet 1 10/30/2023 Active phentermine hydrochloride 37.5 mg oral tablet (10 [...] 30 tablet 05/25/2023 02/09/2024 Discontinued (Therapy completed) tamsulosin hydrochloride 0.4 mg oral capsule (20 sources) alpha-Adrenergic Danica Start: 11-29-2024 End: 12-15-2024 take 1 capsule by mouth once daily tamsulosin (FLOMAX) 0.4 mg capsule Take 1 capsule (0.4 mg total) by mouth nightly. 11/29/2024 12/15/2024 Discontinued (Therapy completed) Start: 06-02-2023 End: 02-09-2024 take 1 capsule by mouth once daily tamsulosin (FLOMAX) 0.4 mg capsule Take 1 capsule (0.4 mg total) by mouth nightly. 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] Onset: 09-28-2019 09-28-2019 Chronic Conditions associated with dizziness or vertigo (9 sources) Dizziness; Translations: [Dizziness and giddiness] Onset: 11-28-2024 12-23-2024 Episodic Conditions associated with dizziness or vertigo (1 source) Conditions associated with dizziness or vertigo Onset: 11-28-2024 Deficiency and other anemia (1 source) Anemia; Translations: [Anemia, unspecified] 12-15-2024 Episodic Deficiency and other anemia (2 sources) Anemia, unspecified; Translations: [Anemia, unspecified] Onset: 12-15-2024 Episodic Diabetes mellitus without complication (5 sources) Hyperglycemia; Translations: [Hyperglycemia, unspecified] Onset: 03-24-2024 03-24-2024 Episodic Disorders of lipid metabolism (20 sources) Mixed hyperlipidemia; Translations: [Mixed hyperlipidemia] Onset: 08-28-2020 07-01-2022 Chronic E Codes: Fall (1 source) Fall Onset: 11-28-2024 Esophageal disorders (5 sources) Gastroesophageal reflux disease without esophagitis; Translations: [Gastro-esophageal reflux disease without esophagitis] 09-09-2024 Chronic Essential hypertension (20 sources) Essential hypertension; Translations: [Essential (primary) hypertension] Onset: 11-16-2018 09-09-2024 Chronic Gastritis and duodenitis (20 sources) Gastritis; Translations: [Unspecified chronic gastritis without bleeding] Onset: 03-02-2019 03-02-2019 Chronic Joint disorders and dislocations; trauma-related (8 sources) Chondromalacia of patella; Translations: [Chondromalacia patellae, unspecified knee] Onset: 07-03-2016 12-23-2024 Chronic Malaise and fatigue (1 source) Weakness; Translations: [Weakness] Onset: 11-28-2024 Episodic Mood disorders (20 sources) Depressive disorder; Translations: [Other specified depressive episodes] Onset: 10-02-2017 09-09-2024 Chronic Nonspecific chest pain (1 source) Chest pain, unspecified; Translations: [Chest pain, unspecified] Onset: 01-30-2025 Episodic Osteoarthritis (20 sources) Osteoarthritis; Translations: [Unspecified osteoarthritis, unspecified site] Onset: 07-03-2016 07-01-2022 Chronic Other circulatory disease (1 source) Hypotension, unspecified; Translations: [Hypotension, unspecified] Onset: 11-28-2024 Episodic Other connective tissue disease (1 source) Arthrodesis status; Translations: [Arthrodesis status] Onset: 09-16-2024 Episodic Other ear and sense organ disorders (4 sources) Chronic right myringitis; Translations: [Chronic myringitis, right ear] 12-27-2024 Chronic Other ear and sense organ disorders (8 sources) Sensorineural hearing loss, bilateral; Translations: [Sensorineural hearing loss, bilateral] Onset: 12-23-2024 12-23-2024 Chronic Other endocrine disorders (7 sources) Hypoglycemia; Translations: [Hypoglycemia, unspecified] 12-20-2024 Chronic Other endocrine disorders (1 source) Hypoglycemia, unspecified; Translations: [Hypoglycemia, unspecified] Onset: 12-20-2024 Chronic Other injuries and conditions due to external causes (8 sources) Other specified injuries of right shoulder and upper arm, sequela; Translations: [Shoulder and upper arm injury] Onset: 12-23-2024 12-23-2024 Episodic Other injuries and conditions due to external causes (2 sources) Foreign body in right ear; Translations: [Foreign body in right ear, initial encounter] 01-17-2025 Episodic Other lower respiratory disease (3 sources) Shortness of breath; Translations: [Shortness of breath] Onset: 01-30-2025 Episodic Other lower respiratory disease (1 source) Dyspnea, unspecified; Translations: [Dyspnea, unspecified] Onset: 01-30-2025 Episodic Other male genital disorders (20 sources) Induratio penis plastica; Translations: [Induration penis plastica] Onset: 07-15-2023 03-08-2024 Chronic Other male genital disorders (1 source) Induration penis plastica; Translations: [Induration penis plastica] Onset: 03-08-2024 Chronic Other nervous system disorders (1 source) Carpal tunnel syndrome of right wrist; Translations: [Carpal tunnel syndrome, right upper limb] 03-24-2024 Chronic Other nervous system disorders (1 source) Carpal tunnel syndrome, right upper limb; Translations: [Carpal tunnel syndrome, right upper limb] Onset: 03-24-2024 Chronic Other nutritional; endocrine; and metabolic disorders (20 sources) Obesity caused by energy imbalance; Translations: [Class 1 obesity due to excess calories with serious comorbidity and body mass index (BMI) of 30.0 to 30.9 in adult] Onset: 02-09-2024 02-09-2024 Chronic Other nutritional; endocrine; and metabolic disorders (2 sources) Other obesity due to excess calories; Translations: [Other obesity due to excess calories] Onset: 02-09-2024 Chronic Other nutritional; endocrine; and metabolic disorders (2 sources) Body mass index (BMI) 30.0-30.9, adult; Translations: [Body mass index (BMI) 30.0-30.9, adult] Onset: 02-09-2024 Chronic Otitis media and related conditions (2 sources) Chronic serous otitis media of right ear; Translations: [Chronic serous otitis media, right ear] Onset: 12-15-2024 12-15-2024 Chronic Otitis media and related conditions (20 sources) Dysfunction of bilateral eustachian tubes; Translations: [Unspecified Eustachian tube disorder, bilateral] Onset: 12-23-2024 12-27-2024 Episodic Residual codes; unclassified (20 sources) Obstructive sleep apnea syndrome; Translations: [Obstructive sleep apnea (adult) (pediatric)] Onset: 2016 10-16-2016 Chronic Residual codes; unclassified (2 sources) Obstructive sleep apnea (adult) (pediatric); Translations: [Obstructive sleep apnea (adult) (pediatric)] Onset: 10-16-2016 Chronic Residual codes; unclassified (5 sources) Insomnia; Translations: [Insomnia, unspecified] 09-21-2024 Episodic Spondylosis; intervertebral disc disorders; other back problems (14 sources) Other cervical disc displacement at C4-C5 level; Translations: [Other cervical disc displacement at C5-C6 level] Onset: 06-26-2022 Chronic Syncope (3 sources) Syncope and collapse; Translations: [Syncope and collapse] Onset: 02-24-2025 Episodic Unclassified (1 source) Chronic serous otitis media of right ear 12-16-2024 Unclassified (1 source) Hot Flashes Onset: 03-24-2024 Unclassified (1 source) referral / right arm numbness Onset: 03-24-2024 Past or Other Problems Problem Classification Problem Date Documented Da te Episodic/Chronic Acute and unspecified renal failure (20 sources) Acute renal failure syndrome; Translations: [Acute kidney failure, unspecified] Onset: 11-28-2024 11-28-2024 Episodic Cardiac dysrhythmias (20 sources) Palpitations; Translations: [Palpitations] Onset: 07-01-2022 07-01-2022 Episodic Esophageal disorders (20 sources) Esophagitis; Translations: [Esophagitis] Onset: 03-02-2019 03-02-2019 Episodic Fluid and electrolyte disorders (20 sources) Low blood pressure; Translations: [Hypovolemia] Onset: 11-29-2024 11-29-2024 Episodic Gastritis and duodenitis (20 sources) Gastritis; Translations: [Gastritis, unspecified, without bleeding] Onset: 03-02-2019 07-01-2022 Episodic Gastrointestinal hemorrhage (20 sources) Rectal hemorrhage; Translations: [Hemorrhage of anus and rectum] Onset: 09-16-2019 09-16-2019 Episodic Genitourinary symptoms and ill-defined conditions (20 sources) Lower urinary tract symptoms; Translations: [Unspecified symptoms and signs involving the genitourinary system] Onset: 05-06-2023 04-19-2024 Episodic Inflammatory conditions of male genital organs (20 sources) Epididymitis; Translations: [Epididymitis] Onset: 07-18-2019 07-01-2022 Episodic Joint disorders and dislocations; trauma-related (20 sources) Other tear of medial meniscus, current injury, right knee, initial encounter; Translations: [Tear of medial meniscus of knee] Onset: 07-20-2018 Episodic Mood disorders (20 sources) Mood disorders; Translations: [Depression, unspecified] Onset: 03-24-2024 Resolved: 02-06-2025 03-24-2024 Nonmalignant breast conditions (4 sources) Lump in upper outer quadrant of left breast; Translations: [Unspecified lump in the left breast, upper outer quadrant] Onset: 02-09-2024 02-09-2024 Episodic Other and unspecified benign neoplasm (20 sources) Polyp of sigmoid colon; Translations: [Polyp of colon] Onset: 09-28-2019 09-28-2019 Episodic Other and unspecified benign neoplasm (1 source) Polyp of colon; Translations: [Polyp of colon] Onset: 09-28-2019 Episodic Other circulatory disease (18 sources) Orthostatic hypotension; Translations: [Orthostatic hypotension] Onset: 11-29-2024 11-29-2024 Episodic Other connective tissue disease (3 sources) [...] 02-25-2019 02-25-2019 Episodic Other non-traumatic joint disorders (20 sources) Shoulder pain; Translations: [Pain in unspecified shoulder] Onset: 08-12-2016 07-01-2022 Episodic Other non-traumatic joint disorders (20 sources) Knee joint effusion; Translations: [Effusion, unspecified knee] Onset: 11-11-2017 03-25-2023 Episodic Other screening for suspected conditions (not mental disorders or infectious disease) (20 sources) Encounter for screening, unspecified; Translations: [Electrocardiogram abnormal] Onset: 02-23-2020 Episodic Residual codes; unclassified (1 source) Flushing; Translations: [Flushing] 03-24-2024 Episodic Residual codes; unclassified (20 sources) Snuff user; Translations: [Tobacco use] Onset: 11-29-2024 11-29-2024 Episodic Residual codes; unclassified (2 sources) Flushing; Translations: [Flushing] Onset: 03-24-2024 Episodic Spondylosis; intervertebral disc disorders; other [...] Test Name Value Interpretation Reference Range Facility Glucose (Bld) [Mass/Vol]on 0 01-30-2025 Glucose Blood, POC 143 mg/dL [facility] 01-30-2025 Follow-up visit [id number] Avel Funes 1975 M Date Provider Department Center 01/30/2025 KAI CASTORENA AMALIA Barajas Family History Problem Relation Age of Onset Fibromyalgia Mother Irritable bowel syndrome Mother Thyroid disease Mother Other Mother Prostate cancer Father Diabetes Father Seizures Sister Thyroid disease Sister Family Status - Relation Status Age at Mother Alive Father Alive Sister Level of Service:32896 [place] OFFICE/OUTPATIENT NEW MODERATE MDM 45 MINUTES Normal [facility] Orders Onlyon 01-30-2025 Orders Only [id number] Avel Funes 1975 M Date Provider Department Center 01/30/2025 [id number], HISTORICAL AMALIA Barajas Family History Problem Relation Age of Onset Fibromyalgia Mother Irritable bowel syndrome Mother Thyroid disease Mother Other Mother Prostate cancer Father Diabetes Father Seizures Sister Thyroid disease Sister Family Status - Relation Status Age at Mother Alive Father Alive Sister Normal [facility] BASIC METABOLIC PANLon 12-24 Anion gap [Moles/Vol] 10 mmol/L Normal 5-15 [facility] Comment on above: Performed By: #### H A1C, 3016-3, 2986-8 #### [facility] ([id number]) [address], [address] [place] [address] Calcium [Mass/Vol] 9.9 mg/dL Normal 8.5-10.[address] [facility] Comment on above: Performed By: #### H A1C, 3016-3, 2986-8 #### [facility] ([id number]) [address], [address] [place] [address] Chloride [Moles/Vol] 103 mmol/L Normal 98-109 [facility] Comment on above: Performed By: #### H A1C, 3016-3, 2986-8 #### [facility] ([id number]) [address], [address] [place] [address] CO2 [Moles/Vol] 30 mmol/L Normal 22-32 [facility] Comment on above: Performed By: #### H A1C, 3016-3, 2986-8 #### [facility] ([id number]) [address], [address] [place] [address] Creatinine [Mass/Vol] 1.07 mg/dL Normal 0.60-1.30 [facility] Comment on above: Result Comment: METH OD TRACEABLE TO IDMS STANDARD Performed By: #### H A1C, 3016-3, 2986-8 #### [facility] ([id number]) [address], [address] [place] [address] GFR/1.73 sq M.predicted among non-blacks MDRD (S/P/Bld) [Vol rate/Area] 86 mL/min/{1.73_m2} Normal >59 [facility] Comment on above: Result Comment: Reported eGFR is based on the CKD-EPI 2020 equation that does not use a race coefficient. Performed By: #### H A1C, 3016-3, 2986-8 #### [facility] ([id number]) [address], [address] [place] [address] Glucose [Mass/Vol] 99 mg/dL Normal 65-[address] [facility] Comment on above: Performed By: #### H A1C, 3016-3, 2986-8 #### [facility] ([id number]) [address], [address] [place] [address] Potassium [Moles/Vol] 4.4 mmol/L Normal 3.5-5.0 [facility] Comment on above: Performed By: #### H A1C, 3016-3, 2986-8 #### [facility] ([id number]) [address], [address] [place] [address] Sodium [Moles/Vol] 143 mmol/L Normal 134-[address] [facility] Comment on above: Performed By: #### H A1C, 3016-3, 2986-8 #### [facility] ([id number]) [address], [address] [place] [address] Urea nitrogen [Mass/Vol] 10 mg/dL Normal 5-23 [facility] Comment on above: Performed By: #### H A1C, 3016-3, 2986-8 #### [facility] ([id number]) [address], [address] [place] [address] C peptide post fast [Mass/Vo l]on 12-24-2024 C-Peptide, S 3.6 ng/mL Normal 1.1 - 4.4 [facility] Comment on above: Result Comment: NOTE ADDITIONAL INFORMATION Reference interval applies to fasting patients. Test Performed by: [facility] [address] [facility], [place] [address] [employer] Counter Assistant: Priscilla Leigh Ph.D.; CLIA# [id number] Performed By: #### H A1C, 3016-3, 2986-8 #### [facility] ([id number]) [address], [address] [place] [address] LIVER PANELon 12-24-2024 Albumin [Mass/Vol] 4.8 g/dL Normal 3.2-5.[address] [facility] Comment on above: Performed By: #### H A1C, 3016-3, 2986-8 #### [facility] ([id number]) [address], [address] [place] [address] ALP [Catalytic activity/Vol] 47 U/L Normal 39-130 [facility] Comment on above: Performed By: #### H A1C, 3016-3, 2986-8 #### [facility] ([id number]) [address], [address] [place] [address] ALT [Catalytic activity/Vol] 19 U/L Normal 0-40 [facility] Comment on above: Performed By: #### H A1C, 3016-3, 2986-8 #### [facility] ([id number]) [address], [address] [place] [address] AST [Catalytic activity/Vol] 18 U/L Normal 0-41 [facility] Comment on above: Performed By: #### H A1C, 3016-3, 2986-8 #### [facility] ([id number]) [address], [address] [place] [address] Bilirubin [Mass/Vol] 0.6 mg/dL Normal 0.3-1.2 [facility] Comment on above: Performed By: #### H A1C, 3016-3, 2986-8 #### [facility] ([id number]) [address] [address] [place] [address] Bilirubin.direct [Mass/Vol] 0.1 mg/dL Normal 0.0-0.4 [facility] Comment on above: Performed By: #### H A1C, 3016-3, 2986-8 #### [facility] ([id number]) [address] [address] [place] [address] Protein [Mass/Vol] 7.2 g/dL Normal 6.0-8.[address] [facility] Comment on above: Performed By: #### H A1C, 3016-3, 2986-8 #### [facility] ([id number]) [address] [address] [place] [address] Laboratory comment Cameron (Mehul rt)on 12-24-2024 UNLISTED LAB TEST Sent to reference lab [facility] Comment on above: Performed By: #### H A1C, 3016-3, 2986-8 #### [facility] ([id number]) [address], [facility] [address] [place] [address] PAW PAW GENERIC ORDERon 025 TEST NAME FFIG2 INSULIN LIKE IGF2 Normal [facility] Comment on above: Performed By: #### H A1C, 3016-3, 2986-8 #### [facility] ([id number]) [address] [address] TEST RESULT SEE COMMENTS 01/06/2025 12:08 AM Normal [facility] Comment on above: Result Comment: NOTE Test Result Flag Unit RefValue -- IGF-2 945 ng/mL This test was developed and its performance characteristics determined by [employer]. It has not been cleared or approved by the Food and Drug Administration. Reference Range: Age Range Adults 333 - 967 Test Performed by: [facility] [address] [place] [address] Performed By: #### H A1C, 3015-3, 8 #### [facility] ([id number]) [address], [address] [place] [address] Proinsulin post 12 Hr fast [ Moles/Vol]on 12-24-2024 PROINSULIN,INTACT 4.7 pmol/L Normal <=7.2 [facility] Comment on above: Result Comment: NOTE Performed By: [facility] [address] [place] [id number] Inspector Filters: Austen Rodriguez MD, PhD CLIA Number: [id number] Performed By: #### H A1C, 3015-10, 8 #### [facility] ([id number]) [address], [address] [place] [address] Glucose (Bld) [Mass/Vol]on 12-23-2024 Glucose Blood, POC 158 mg/dL [facility] Interpretation and review of laboratory results [facility] (GLYCO-HGB)on 2024 Glucose [Mass/Vol] 108 mg/dL Normal [facility] Comment on above: Performed By: #### H A1C, 3, 8 #### [facility] ([id number]) [address], [address] [place] [address] HbA1c (Bld) [Mass fraction] 5.4 % Normal 4.4-5.6 [facility] Comment on above: Result Comment: NOTE ADA Guidelines Result HgbA1c Normal : less than 5.7 % Prediabetes : 5.7 % to 6.4 % Diabetes : > 6.4 % Use with caution in patients with abnormal hemoglobin variants as the half-life of red blood cells and in vivo glycation rates are affected. Performed By: #### H A1C, 3015-3, 298-8 #### [facility] ([id number]) [address], [address] [place] [address] Insulin Qnon 12-20-2024 INSULIN 29.73 uIU/mL High 1.00-23.00 [facility] Comment on above: Result Comment: Ref. range is for FASTING NON-DIABETIC POPULATION. Performed By: #### H A1C, 3016-3, 2986-8 #### [facility] ([id number]) [address] [place] [address] CBC AND AUTO DIFFon 12-16-19 ABSOLUTE BASOPHIL 0.1 X10E9/L Normal 0.0-0.2 [facility] Comment on above: Performed By: #### C BCA, CMP #### [facility] ([id number]) [address] [place] [address] Band form neutrophils/100 WBC (Bld) 2.0 % Normal [facility] Comment on above: Performed By: #### C BCA, CMP #### [facility] ([id number]) [address] [place] [address] Basophils/100 WBC (Bld) 1.0 % Normal [facility] Comment on above: Performed By: #### C BCA, CMP #### [facility] ([id number]) [address] [address] [place] [address] Eosinophils (Bld) [#/Vol] 0.2 10*3/uL Normal 0.0-0.4 [facility] Comment on above: Performed By: #### C BCA, CMP #### [facility] ([id number]) [address] [address] Eosinophils/100 WBC (Bld) 3.0 % Normal [facility] Comment on above: Performed By: #### C BCA, CMP #### [facility] ([id number]) [address] [place] [address] Erythrocyte distribution width (RBC) [Ratio] 13.2 % Normal 11.5-15.0 [facility] Comment on above: Performed By: #### C BCA, CMP #### [facility] ([id number]) [address] [place] [address] Hematocrit (Bld) [Volume fraction] 39.6 % Normal 39-49 [facility] Comment on above: Performed By: #### C MILLIE, CMP #### [facility] ([id number]) [address] [place] [address] Hemoglobin (Bld) [Mass/Vol] 13.5 g/dL Normal 13.0-17.0 [facility] Comment on above: Performed By: #### C MILLIE, CMP #### [facility] ([id number]) [address] [place] [address] Lymphocytes (Bld) [#/Vol] 2.4 10*3/uL Normal 1.0-3.5 [facility] Comment on above: Performed By: #### C MILLIE, CMP #### [facility] ([id number]) [address] [place] [address] Lymphocytes/100 WBC (Bld) 48.0 % Normal [facility] Comment on above: Performed By: #### C BCA, CMP #### [facility] ([id number]) [address], [address] [place] [address] MCH (RBC) [Entitic mass] 29.6 pg Normal 27-34 [facility] Comment on above: Performed By: #### C BCA, CMP #### [facility] ([id number]) [address], [address] [place] [address] MCHC (RBC) [Mass/Vol] 34.1 g/dL Normal 32-36 [facility] Comment on above: Performed By: #### C BCA, CMP #### [facility] ([id number]) [address] [place] [address] MCV (RBC) [Entitic vol] 87 fL Normal 80-100 [facility] Comment on above: Performed By: #### C BCA, CMP #### [facility] ([id number]) [address], [address] [place] [address] Monocytes (Bld) [#/Vol] 0.3 10*3/uL Normal 0-0.9 [facility] Comment on above: Performed By: #### C MILLIE, CMP #### [facility] ([id number]) [address], [address] [place] [address] Monocytes/100 WBC (Bld) 6.0 % Normal [facility] Comment on above: Performed By: #### C MILLIE, CMP #### [facility] ([id number]) [address] [place] [address] Neutrophils (Bld) [#/Vol] 2.2 10*3/uL Normal 1.5-6.6 [facility] Comment on above: Performed By: #### C BCA, CMP #### [facility] ([id number]) [address] [place] [address] Platelet mean volume (Bld) [Entitic vol] 9.2 fL Normal 7-12 [facility] Comment on above: Performed By: #### C BCA, CMP #### [facility] ([id number]) [address] [place] [address] Platelets (Bld) [#/Vol] 261 10*3/uL Normal 150-450 [facility] Comment on above: Performed By: #### C BCA, CMP #### [facility] ([id number]) [address] [place] [address] RBC COUNT 4.56 X10E12/L Normal 4.10-5.70 [facility] Comment on above: Performed By: #### C BCA, CMP #### [facility] ([id number]) [address] [place] [address] RBC morphology finding Nom (Bld) NORMAL Normal [facility] Comment on above: Performed By: #### C BCA, CMP #### [facility] ([id number]) [address] [place] [address] SEG NEUTROPHIL 40.0 % Normal [facility] Comment on above: Performed By: #### C BCA, CMP #### [facility] ([id number]) [address] [place] [address] WBC (Bld) [#/Vol] 5.2 10*3/uL Normal 4.0-11.0 [facility] Comment on above: Performed By: #### Florencia BCA, CMP #### [facility] ([id number]) [address] [place] [address] CBC auto differentialon 11-29 Band form neutrophils/100 WBC (Bld) 2 % [facility] Basophils (Bld) [#/Vol] 0.1 10*3/uL [facility] Basophils/100 WBC (Bld) 1 % [facility] Eosinophils (Bld) [#/Vol] 0.2 10*3/uL [facility] Eosinophils/100 WBC (Bld) 3 % [facility] Erythrocyte distribution width (RBC) [Ratio] 13.2 % 11.5 - 15.0 % [facility] Hematocrit (Bld) [Volume fraction] 39.6 % 39 - 49 % [facility] Hemoglobin (Bld) [Mass/Vol] 13.5 g/dL 13.0 - 17.0 g/dL [facility] Lymphocytes (Bld) [#/Vol] 2.4 10*3/uL [facility] Lymphocytes/100 WBC (Bld) 48 % [facility] MCH (RBC) [Entitic mass] 29.6 pg 27 - 34 pg [facility] MCHC (RBC) [Mass/Vol] 34.1 g/dL 32 - 36 g/dL [facility] MCV (RBC) [Entitic vol] 87 fL 80 - 100 fL [facility] Monocytes (Bld) [#/Vol] 0.3 10*3/uL [facility] Monocytes/100 WBC (Bld) 6 % [facility] Neutrophils (Bld) [#/Vol] 2.2 10*3/uL [facility] Platelet mean volume (Bld) [Entitic vol] 9.2 fL 7 - 12 fL [facility] Platelets (Bld) [#/Vol] 261 10*3/uL [facility] Polymorphonuclear cells/100 WBC (Bld) NORMAL [facility] RBC (Bld) [#/Vol] 4.56 10*6/uL [facility] Segmented neutrophils/100 WBC (Bld) 40 % [facility] WBC corrected for nucl RBC Auto (Bld) [#/Vol] 5.2 [facility] COMPREHENSIVE METABOLIC PANE Kulwinder 12-15-2024 Albumin [Mass/Vol] 4.9 g/dL Normal 3.2-5.3 [facility] Comment on above: Performed By: #### C BCA, CMP #### [facility] ([id number]) [address] [place] [address] ALP [Catalytic activity/Vol] 51 U/L Normal 39-130 [facility] Comment on above: Performed By: #### C BCA, CMP #### [facility] ([id number]) [address] [place] [address] ALT [Catalytic activity/Vol] 17 U/L Normal 0-40 [facility] Comment on above: Performed By: #### C BCA, CMP #### [facility] ([id number]) [address] [place] [address] Anion gap [Moles/Vol] 10 mmol/L Normal 5-15 [facility] Comment on above: Performed By: #### C BCA, CMP #### [facility] ([id number]) [address] [place] [address] AST [Catalytic activity/Vol] 18 U/L Normal 0-41 [facility] Comment on above: Performed By: #### C BCA, CMP #### [facility] ([id number]) [address] [place] [address] Bilirubin [Mass/Vol] 0.5 mg/dL Normal 0.3-1.2 [facility] Comment on above: Performed By: #### C BCA, CMP #### [facility] ([id number]) [address] [place] [address] Calcium [Mass/Vol] 9.9 mg/dL Normal 8.5-10.5 [facility] Comment on above: Performed By: #### C BCA, CMP #### [facility] ([id number]) [address] [place] [address] Chloride [Moles/Vol] 102 mmol/L Normal 98-109 [facility] Comment on above: Performed By: #### C BCA, CMP #### [facility] ([id number]) [address] [place] [address] CO2 [Moles/Vol] 27 mmol/L Normal 22-32 [facility] Comment on above: Performed By: #### C BCA, CMP #### [facility] ([id number]) [address] [place] [address] Creatinine [Mass/Vol] 0.99 mg/dL Normal 0.60-1.30 [facility] Comment on above: Result Comment: METH OD TRACEABLE TO IDMS STANDARD Performed By: #### C BCA, CMP #### [facility] ([id number]) [address] [place] [address] eGFR (CKD-EPI) NON-RACE DEPENDENT >90 Normal >59 [facility] Comment on above: Result Comment: Reported eGFR is based on the CKD-EPI 2020 equation that does not use a race coefficient. Performed By: #### C BCA, CMP #### [facility] ([id number]) [address] [place] [address] Glucose [Mass/Vol] 114 mg/dL High 65-99 [facility] Comment on above: Performed By: #### C BCA, CMP #### [facility] ([id number]) [address] [place] [address] Potassium [Moles/Vol] 4.4 mmol/L Normal 3.5-5.0 [facility] Comment on above: Performed By: #### C BCA, CMP #### [facility] ([id number]) [address] [place] [address] Protein [Mass/Vol] 7.0 g/dL Normal 6.0-8.0 [facility] Comment on above: Performed By: #### C BCA, CMP #### [facility] ([id number]) [address] [place] [address] Sodium [Moles/Vol] 139 mmol/L Normal 134-146 [facility] Comment on above: Performed By: #### C BCA, CMP #### [facility] ([id number]) [address] [place] [address] Urea nitrogen [Mass/Vol] 10 mg/dL Normal 5-23 [facility] Comment on above: Performed By: #### C BCA, CMP #### [facility] ([id number]) [address] [place] [address] Comprehensive metabolic pane kulwinder 12-15-2024 Albumin [Mass/Vol] 4.9 g/dL 3.2 - 5.3 g/dL [facility] ALP [Catalytic activity/Vol] 51 U/L 39 - 130 U/L [facility] ALT No additional P-5'-P [Catalytic activity/Vol] 17 U/L 0 - 40 U/L [facility] Anion gap [Moles/Vol] 10 mmol/L 5 - 15 mmol/L [facility] AST [Catalytic activity/Vol] 18 U/L 0 - 41 U/L [facility] Bilirubin [Mass/Vol] 0.5 mg/dL 0.3 - 1 .2 mg/dL [facility] Calcium [Mass/Vol] 9.9 mg/dL 8.5 - 10. 5 mg/dL [facility] Chloride [Moles/Vol] 102 mmol/L 98 - 10 9 mmol/L [facility] CO2 [Moles/Vol] 27 mmol/L 22 - 32 mmol/L [facility] [place] Creatinine [Mass/Vol] 0.99 mg/dL 0.60 - 1.30 mg/dL [facility] Comment on above: METHOD TRACEABLE TO IDAZ STANDARD eGFR (CKD-EPI)non-race dependent - PINF [facility] [place] Comment on above: Reported eGFR is based on the CKD-EPI 2020 equation that does not use a race coefficient. Glucose [Mass/Vol] 114 mg/dL High 65 - 99 mg/dL [facility] Interpretation and review of laboratory results Abnormal [facility] Potassium [Moles/Vol] 4.4 mmol/L 3.5 - 5.0 mmol/L [facility] Protein [Mass/Vol] 7 g/dL 6.0 - 8.0 g/dL [facility] Sodium [Moles/Vol] 139 mmol/L 134 - 146 mmol/L [facility] Urea nitrogen [Mass/Vol] 10 mg/dL 5 - 23 mg/dL [facility] CBC AND AUTO DIFFon 11-30-19 25 ABSOLUTE BASOPHIL 0.0 X10E9/L Normal 0.0-0.[address] [facility] Comment on above: Performed By: #### 1 9123-9, CMP, CBCA #### ([id number])[address] [place] [address] 52995 ABSOLUTE NEUTROPHIL 3.1 X10E9/L Normal 1.5-6.6 [facility] Comment on above: Performed By: #### 1 9123-9, CMP, CBCA #### ([id number])[address] [place] [address] 33545 Basophils/100 WBC (Bld) 0.6 % Normal [facility] Comment on above: Performed By: #### 1 9123-9, CMP, CBCA #### ([id number])[address] [place] [address] 55878 Eosinophils (Bld) [#/Vol] 0.1 10*3/uL Normal 0.0-0.4 [facility] Comment on above: Performed By: #### 1 9123-9, CMP, CBCA #### ([id number])[address] [place] [address] 23115 Eosinophils/100 WBC (Bld) 2.0 % Normal [facility] Comment on above: Performed By: #### 1 9123-9, CMP, CBCA #### ([id number])[address] [place] [address] 12479 Erythrocyte distribution width (RBC) [Ratio] 12.8 % Normal 11.5-15.0 [facility] Comment on above: Performed By: #### 1 9123-9, CMP, CBCA #### ([id number])[address] [place] [address] 32708 Hematocrit (Bld) [Volume fraction] 34.0 % Low 39-[address] [facility] Comment on above: Performed By: #### 1 9123-9, CMP, CBCA #### ([id number])[address] [place] [address] 59121 Hemoglobin (Bld) [Mass/Vol] 11.8 g/dL Low 13.0-17.0 [facility] Comment on above: Performed By: #### 1 9123-9, CMP, CBCA #### ([id number])[address] [place] [address] 60670 Lymphocytes (Bld) [#/Vol] 3.0 10*3/uL Normal 1.0-3.5 [facility] Comment on above: Performed By: #### 1 9123-9, CMP, CBCA #### ([id number])[address] [place] [address] 96406 Lymphocytes/100 WBC (Bld) 43.7 % Normal [facility] Comment on above: Performed By: #### 1 9123-9, CMP, CBCA #### ([id number])[address] [place] [address] 12670 MCH (RBC) [Entitic mass] 30.1 pg Normal 27-34 [facility] Comment on above: Performed By: #### 1 9123-9, CMP, CBCA #### ([id number])[address] [place] [address] 39615 MCHC (RBC) [Mass/Vol] 34.8 g/dL Normal 32-36 [facility] Comment on above: Performed By: #### 1 9123-9, CMP, CBCA #### ([id number])[address] [place] [address] 10371 MCV (RBC) [Entitic vol] 87 fL Normal 80-100 [facility] Comment on above: Performed By: #### 1 9123-9, CMP, CBCA #### ([id number])[address] [place] [address] 63971 Monocytes (Bld) [#/Vol] 0.5 10*3/uL Normal 0-0.9 [facility] Comment on above: Performed By: #### 1 9123-9, CMP, CBCA #### ([id number])[address] [place] [address] 69912 Monocytes/100 WBC (Bld) 7.2 % Normal [facility] Comment on above: Performed By: #### 1 9123-9, CMP, CBCA #### ([id number])[address] [place] [address] 59195 Neutrophils/100 WBC (Bld) 46.5 % Normal [facility] Comment on above: Performed By: #### 1 9123-9, CMP, CBCA #### ([id number])[address] [place] [address] 06936 Platelet mean volume (Bld) [Entitic vol] 9.0 fL Normal 7-12 [facility] Comment on above: Performed By: #### 1 9123-9, CMP, CBCA #### ([id number])[address] [place] [address] 03280 Platelets (Bld) [#/Vol] 227 10*3/uL Normal 150-450 [facility] Comment on above: Performed By: #### 1 9123-9, CMP, CBCA #### ([id number])[address] [place] [address] [place] [address] RBC COUNT 3.92 X10E12/L Low 4.10-5.70 [facility] Comment on above: Performed By: #### 1 9123-9, CMP, CBCA #### ([id number])[address] [place] [address] 28847 WBC (Bld) [#/Vol] 6.8 10*3/uL Normal 4.0-11.[address] [facility] Comment on above: Performed By: #### 1 9123-9, CMP, CBCA #### ([id number])[address] [place] [address], [place] [address] COMPREHENSIVE METABOLIC PANE Kulwinder 11-29-2024 Albumin [Mass/Vol] 3.9 g/dL Normal 3.2-5.[address] [facility] Comment on above: Performed By: #### H A1C, 3015-3, 2986-8 #### [facility] ([id number]) [address], [address] [place] [address] ALP [Catalytic activity/Vol] 45 U/L Normal 39-130 [facility] Comment on above: Performed By: #### H A1C, 3, 298-8 #### [facility] ([id number]) [address], [address] [place] [address] ALT [Catalytic activity/Vol] 21 U/L Normal 0-40 [facility] Comment on above: Performed By: #### H A1C, 3015-3, 2986-8 #### [facility] ([id number]) [address], [address] [place] [address] Anion gap [Moles/Vol] 8 mmol/L Normal 5-15 [facility] Comment on above: Performed By: #### H A1C, 3, 2986-8 #### [facility] ([id number]) [address], [address] [place] [address] AST [Catalytic activity/Vol] 16 U/L Normal 0-41 [facility] Comment on above: Performed By: #### H A1C, 3015-3, 2986-8 #### [facility] ([id number]) [address], [address] [place] [address] Bilirubin [Mass/Vol] 0.3 mg/dL Normal 0.3-1.2 [facility] Comment on above: Performed By: #### H A1C, 6-3, 2986-8 #### [facility] ([id number]) [address], [address] [place] [address] Calcium [Mass/Vol] 8.8 mg/dL Normal 8.5-10.[address] [facility] Comment on above: Performed By: #### H A1C, 3016-3, 2986-8 #### [facility] ([id number]) [address], [address] [place] [address] Chloride [Moles/Vol] 106 mmol/L Normal 98-109 [facility] Comment on above: Performed By: #### H A1C, 6-3, 2986-8 #### [facility] ([id number]) [address], [address] [place] [address] CO2 [Moles/Vol] 25 mmol/L Normal 22-32 [facility] Comment on above: Performed By: #### H A1C, 6-3, 2986-8 #### [facility] ([id number]) [address], [address] [place] [address] Creatinine [Mass/Vol] 1.14 mg/dL Normal 0.70-1.20 [facility] Comment on above: Result Comment: METH OD TRACEABLE TO IDMS STANDARD Performed By: #### H A1C, 3016-3, 2986-8 #### [facility] ([id number]) [address], [address] [place] [address] GFR/1.73 sq M.predicted among non-blacks MDRD (S/P/Bld) [Vol rate/Area] 79 mL/min/{1.73_m2} Normal >59 [facility] Comment on above: Result Comment: Reported eGFR is based on the CKD-EPI 2020 equation that does not use a race coefficient. Performed By: #### H A1C, 3016-3, 2986-8 #### [facility] ([id number]) [address], [address] [place] [address] Glucose [Mass/Vol] 106 mg/dL High 65-[address] [facility] Comment on above: Performed By: #### H A1C, 3016-3, 2986-8 #### [facility] ([id number]) [address], [address] [place] [address] Potassium [Moles/Vol] 4.3 mmol/L Normal 3.5-5.0 [facility] Comment on above: Performed By: #### H A1C, 3016-3, 2986-8 #### [facility] ([id number]) [address], [address] [place] [address] Protein [Mass/Vol] 6.4 g/dL Normal 6.0-8.[address] [facility] Comment on above: Performed By: #### H A1C, 3016-3, 2986-8 #### [facility] ([id number]) [address], [address] [place] [address] Sodium [Moles/Vol] 139 mmol/L Normal 134-[address] [facility] Comment on above: Performed By: #### H A1C, 3016-3, 2986-8 #### [facility] ([id number]) [address], [address] [place] [address] Urea nitrogen [Mass/Vol] 16 mg/dL Normal 5-23 [facility] Comment on above: Performed By: #### H A1C, 3016-3, 2986-8 #### [facility] ([id number]) [address], [address] [place] [address] MAGNESIUMon 11-29-2024 Magnesium [Mass/Vol] 1.9 mg/dL Normal 1.8-2.6 [facility] Comment on above: Performed By: #### H A1C, 3016-3, 2986-8 #### [facility] ([id number]) [address], [address] [place] [address] BLOOD CULTUREon 11-28-2024 Bacteria identified Aer cx Nom (Bld) SPECIMEN NOTES LAC 10ML CULTURE RESULTS NO GROWTH 5 DAYS Normal [facility] Comment on above: Performed By: #### H A1C, 3016-3, 2986-8 #### [facility] ([id number]) [address] [place] [address] Bacteria identified Aer cx Nom (Bld) SPECIMEN NOTES RAC 10ML CULTURE RESULTS NO GROWTH 5 DAYS Normal [facility] Comment on above: Performed By: #### H A1C, 3016-3, 2986-8 #### [facility] ([id number]) [address] [place] [address] CBC AND AUTO DIFFon 11-29-19 25 ABSOLUTE BASOPHIL 0.0 X10E9/L Normal 0.0-0.[address] [facility] Comment on above: Performed By: #### C BCA, 63007-4, 5643-2, CMP, 20031-6 #### ([id number]) [address] [place] [address] 74192 ABSOLUTE NEUTROPHIL 2.8 X10E9/L Normal 1.5-6.6 [facility] Comment on above: Performed By: #### C MILLIE, 90968-2, 5643-2, CMP, 86634-8 #### ([id number]) [address] [place] [address] 72965 Basophils/100 WBC (Bld) 0.5 % Normal [facility] Comment on above: Performed By: #### C BCA, 00793-6, 5643-2, CMP, 49294-0 #### ([id number]) [address] [place] [address] 43929 Eosinophils (Bld) [#/Vol] 0.1 10*3/uL Normal 0.0-0.4 [facility] Comment on above: Performed By: #### Florencia PINTO, 47419-5, 5643-2, CMP, 30993-6 #### ([id number]) [address] [place] [address] 88227 Eosinophils/100 WBC (Bld) 1.9 % Normal [facility] Comment on above: Performed By: #### Florencia PINTO, , 5643-2, CMP, 64044-9 #### ([id number]) [address] [place] [address] 93165 Erythrocyte distribution width (RBC) [Ratio] 12.9 % Normal 11.5-15.0 [facility] Comment on above: Performed By: #### Florencia PINTO, , 5643-2, CMP, 84331-0 #### ([id number]) [address] [place] [address] 58940 Hematocrit (Bld) [Volume fraction] 36.2 % Low 39-[address] [facility] Comment on above: Performed By: #### Florencia PINTO, , 5643-2, CMP, 78932-5 #### ([id number]) [address] [place] [address] 09561 Hemoglobin (Bld) [Mass/Vol] 12.6 g/dL Low 13.0-17.0 [facility] Comment on above: Performed By: #### Florencia BCA, , 5643-2, CMP, 54725-7 #### ([id number]) [address] [place] [address] 25589 Lymphocytes (Bld) [#/Vol] 1.9 10*3/uL Normal 1.0-3.5 [facility] Comment on above: Performed By: #### Florencia PINTO, 51565-8, 5643-2, CMP, 55519-4 #### ([id number]) [address] [place] [address] 84106 Lymphocytes/100 WBC (Bld) 37.0 % Normal [facility] Comment on above: Performed By: #### Florencia PINTO, , 43-2, CMP, 49594-2 #### ([id number]) [address] [place] [address] 85247 MCH (RBC) [Entitic mass] 30.1 pg Normal 27-34 [facility] Comment on above: Performed By: #### Florencia PINTO, , 43-2, CMP, 60717-3 #### ([id number]) [address] [place] [address] 05057 MCHC (RBC) [Mass/Vol] 34.7 g/dL Normal 32-36 [facility] Comment on above: Performed By: #### Florencia PINTO, , 5642-2, CMP, 10643-6 #### ([id number]) [address] [place] [address] 65952 MCV (RBC) [Entitic vol] 87 fL Normal 80-100 [facility] Comment on above: Performed By: #### Florencia PINTO, , 43-2, CMP, 40473-4 #### ([id number]) [address] [place] [address] 29060 Monocytes (Bld) [#/Vol] 0.4 10*3/uL Normal 0-0.9 [facility] Comment on above: Performed By: #### Florencia PINTO, , 43-2, CMP, 87256-1 #### ([id number]) [address] [place] [address] 65748 Monocytes/100 WBC (Bld) 7.0 % Normal [facility] Comment on above: Performed By: #### Florencia PINTO, , 5643-2, CMP, 01221-3 #### ([id number]) [address] [place] [address] 65520 Neutrophils/100 WBC (Bld) 53.6 % Normal [facility] Comment on above: Performed By: #### Florencia BCA, , 5643-2, CMP, 97814-9 #### ([id number]) [address] [place] [address] 21741 Platelet mean volume (Bld) [Entitic vol] 9.2 fL Normal 7-12 [facility] Comment on above: Performed By: #### Florencia BCA, , 5643-2, CMP, 28700-5 #### ([id number]) [address] [place] [address] 50530 Platelets (Bld) [#/Vol] 246 10*3/uL Normal 150-450 [facility] Comment on above: Performed By: #### Florencia BCA, , 5643-2, CMP, 76276-9 #### ([id number]) [address] [place] [address] 28313 RBC COUNT 4.18 X10E12/L Normal 4.10-5.70 [facility] Comment on above: Performed By: #### Florencia BCA, , 5643-2, CMP, 75754-4 #### ([id number]) [address] [place] [address] 40609 WBC (Bld) [#/Vol] 5.2 10*3/uL Normal 4.0-11.[address] [facility] Comment on above: Performed By: #### Florencia BCA, , 5643-2, CMP, 01736-0 #### ([id number]) [address] [place] [address] 36833 COMPREHENSIVE METABOLIC PANE Kulwinder 11-28-2024 Albumin [Mass/Vol] 4.6 g/dL Normal 3.2-5.[address] [facility] Comment on above: Performed By: #### C BCA, 09444-0, 5643-2, CMP, 02884-4 #### ([id number]) [address] [place] [address] 46747 ALP [Catalytic activity/Vol] 48 U/L Normal 39-130 [facility] Comment on above: Performed By: #### C BCA, 47810-6, 5643-2, CMP, 96819-3 #### ([id number]) [address] [place] [address] 49346 ALT [Catalytic activity/Vol] 22 U/L Normal 0-40 [facility] Comment on above: Performed By: #### C BCA, 86138-2, 5643-2, CMP, 13731-9 #### ([id number]) [address] [place] [address] 43163 Anion gap [Moles/Vol] 9 mmol/L Normal 5-15 [facility] Comment on above: Performed By: #### C BCA, 05194-0, 5643-2, CMP, 68603-5 #### ([id number]) [address] [place] [address] 23266 AST [Catalytic activity/Vol] 19 U/L Normal 0-41 [facility] Comment on above: Performed By: #### C BCA, 73039-1, 5643-2, CMP, 29761-0 #### ([id number]) [address] [place] [address] 89238 Bilirubin [Mass/Vol] 0.6 mg/dL Normal 0.3-1.2 [facility] Comment on above: Performed By: #### C BCA, 29023-2, 5643-2, CMP, 49706-3 #### ([id number]) [address] [place] [address] 40716 Calcium [Mass/Vol] 9.7 mg/dL Normal 8.5-10.[address] [facility] Comment on above: Performed By: #### C BCA, 70086-4, 5643-2, CMP, 96925-2 #### ([id number]) [address] [place] [address] 50687 Chloride [Moles/Vol] 102 mmol/L Normal 98-109 [facility] Comment on above: Performed By: #### C BCA, 36750-3, 5643-2, CMP, 07438-3 #### ([id number]) [address] [place] [address] 38047 CO2 [Moles/Vol] 26 mmol/L Normal 22-32 [facility] Comment on above: Performed By: #### C BCA, , 5643-2, CMP, 68617-3 #### ([id number]) [address] [place] [address] 19046 Creatinine [Mass/Vol] 1.79 mg/dL High 0.70-1.20 [facility] Comment on above: Result Comment: METH OD TRACEABLE TO IDMS STANDARD Performed By: #### C BCA, 76368-3, 5643-2, CMP, 73805-7 #### ([id number]) [address] [place] [address] 70529 GFR/1.73 sq M.predicted among non-blacks MDRD (S/P/Bld) [Vol rate/Area] 46 mL/min/{1.73_m2} Low >59 [facility] Comment on above: Result Comment: Reported eGFR is based on the CKD-EPI 2020 equation that does not use a race coefficient. Performed By: #### C BCA, 28113-4, 5643-2, CMP, 23176-9 #### ([id number]) [address] [place] [address] 47956 Glucose [Mass/Vol] 93 mg/dL Normal 65-[address] [facility] Comment on above: Performed By: #### C BCA, 84509-2, 5643-2, CMP, 50215-3 #### ([id number]) [address] [place] [address] 05271 Potassium [Moles/Vol] 3.6 mmol/L Normal 3.5-5.0 [facility] Comment on above: Performed By: #### C BCA, 30793-9, 5643-2, CMP, 10845-9 #### ([id number]) [address] [place] [address] 55639 Protein [Mass/Vol] 7.0 g/dL Normal 6.0-8.[address] [facility] Comment on above: Performed By: #### Florencia BCA, 53231-9, 5643-2, CMP, 06299-3 #### ([id number]) [address] [place] [address] 63224 Sodium [Moles/Vol] 137 mmol/L Normal 134-[address] [facility] Comment on above: Performed By: #### Florencia BCA, , 5643-2, CMP, 46096-0 #### ([id number]) [address] [place] [address] 28090 Urea nitrogen [Mass/Vol] 19 mg/dL Normal 5-23 [facility] Comment on above: Performed By: #### Florencia BCA, 15961-7, 5643-2, CMP, 56844-3 #### ([id number]) [address] [place] [address] BRAIN WO CONTon CT BRAIN WO CONT CT BRAIN WO CONT CT BRAIN WO CONT INDICATION: Fall with [...] Avtar Barnes MD on 11/28/2024 3:00 PM Normal [facility] DRUG SCREEN, URINEon 025 AMPHETAMINE/METHAMP Negative Normal NEG [facility] Comment on above: Result Comment: AMPH /METH screening cut off = 1000 ng/mL Performed By: #### D SOLOMON #### ([id number])[address] [place] [address] 69176 BARBITURATES Negative Normal NEG [facility] Comment on above: Result Comment: Lucila iturates screening cut off value = 200 ng/mL Performed By: #### D SOLOMON #### ([id number])[address] [place] [address] 29561 BENZODIAZEPINES Negative Normal NEG [facility] Comment on above: Result Comment: Pasquale odiazepines screening cut off value = 200 ng/mL Performed By: #### D SOLOMON #### ([id number])[address] [place] [address] 45472 CANNABINOIDS Negative Normal NEG [facility] Comment on above: Result Comment: Domo abinoids/THC screening cut off value = 50 ng/mL Performed By: #### D SOLOMON #### ([id number])[address] [place] [address] 84521 COCAINE METABOLITE Negative Normal NEG [facility] Comment on above: Result Comment: Coca ine screening cut off value = 300 ng/mL Performed By: #### D SOLOMON #### ([id number])[address] [place] [address] 40386 ECSTASY Negative Normal NEG [facility] Comment on above: Result Comment: Ecst asy screening cut off value = 500 ng/mL This report is intended for use in clinical monitoring or management of patients. Performed By: #### D SOLOMON #### ([id number])[address] [place] [address], [place] [address] METHADONE Negative Normal NEG [facility] Comment on above: Result Comment: Meth adone screening cut off value = 300 ng/mL. Performed By: #### D SOLOMON #### ([id number])[address] [place] [address] 58136 OPIATES Negative Normal NEG [facility] Comment on above: Result Comment: Opia lillian screening cut off value = 300 ng/mL NOTE: This test is used for the detection of codeine, hydrocodone (>1000 ng/mL), morphine and hydromorphone (>900 ng/mL) in urine. Performed By: #### D SOLOMON #### ([id number])[address] [place] [address] [place] [address] OXYCODONE Positive Abnormal NEG [facility] Comment on above: Result Comment: Conf irmation available upon request. Oxycodone screening cut off value = 300 ng/mL NOTE: This test is used for the detection of oxycodone and oxymorphone in urine. Performed By: #### D SOLOMON #### ([id number])[address] [place] [address] [place] [address] PHENCYCLIDINE Negative Normal NEG [facility] Comment on above: Result Comment: Phen cyclidine screening cut off value = 25 ng/mL Performed By: #### D SOLOMON #### ([id number])[address] [place] [address] 56121 ETHANOLon 11-28-2024 Ethanol [Mass/Vol] mg/dL Normal 0.00-0.[address] [facility] Comment on above: Result Comment: This report is intended for use in clinical monitoring or management of patients. Performed By: #### C MILLIE, 28558-2, 5643-2, CMP, 17231-9 #### ([id number])[address] [place] [address] 53840 Lactate (P denita) [Moles/Vol]o n 11-28-2024 LACTATE W/REFLEX 1.8 mmol/L Normal 0.4-2.0 [facility] Comment on above: Result Comment: Result did not trigger repeat Lactate, re-order if needed. Performed By: #### 3 2133-1 #### ([id number])[address] [place] [address] 88803 MAGNESIUMon 11-28-2024 Magnesium [Mass/Vol] 2.1 mg/dL Normal 1.8-2.6 [facility] Comment on above: Performed By: #### C MILLIE, , 5643-2, [facility], 82722-1 #### ([id number])[address] [place] [address] 87328 Troponin I.cardiac High sens itivity method [Mass/Vol]on 11-28-2024 1 HOUR TROP I, HIGH SENSITIVITY <2 Normal <21 [facility] Comment on above: Performed By: #### 8 9579-7 #### ([id number])[address] [place] [address] 10634 TROPONIN I, HIGH SENSITIVITY <2 Normal <21 [facility] Comment on above: Performed By: #### C MILLIE, 43432-0, 5643-2, CMP, 05451-6 #### ([id number])[address] [place] [address] 13605 URINALYSISon 11-28-2024 Bilirubin Ql (U) Negative Normal NEG [facility] Comment on above: Performed By: #### U A #### ([id number])[address] [place] [address] [place] [address] BLOOD/HGB Negative Normal NEG [facility] Comment on above: Performed By: #### U A #### ([id number])[address] [place] [address] [place] [address] Color (U) YELLOW Normal YELLOW [facility] Comment on above: Performed By: #### U A #### ([id number])[address] [place] [address] [place] [address] Glucose Ql (U) Negative Normal NEG [facility] Comment on above: Performed By: #### U A #### ([id number])[address] [place] [address] [place] [address] Ketones Ql (U) Negative Normal NEG [facility] Comment on above: Performed By: #### U A #### ([id number])[address] [place] [address] [place] [address] Leukocyte esterase Test strip Ql (U) Negative Normal NEG [facility] Comment on above: Performed By: #### U A #### ([id number])[address] [place] [address] [place] [address] Nitrite Ql (U) Negative Normal NEG [facility] Comment on above: Performed By: #### U A #### ([id number])[address] [place] [address] [place] [address] pH (U) 6.0 [pH] Normal 5.0-8.[address] [facility] Comment on above: Performed By: #### U A #### ([id number])[address] [place] [address], [place] [address] Protein Ql (U) Negative Normal NEG [facility] Comment on above: Performed By: #### U A #### ([id number])[address] [place] [address], [place] [address] Specific gravity (U) [Rel density] 1.010 Normal 1.003-1.035 [facility] Comment on above: Performed By: #### U A #### ([id number])[address] [place] [address], [place] [address] TURBIDITY CLEAR Normal CLEAR [facility] Comment on above: Performed By: #### U A #### ([id number])[address] [place] [address], [place] [address] Urobilinogen Qn (U) 0.2 {Xenia'U}/dL Normal <1.1 [facility] Comment on above: Performed By: #### U A #### ([id number])[address] [place] [address], [place] [address] URN MACROSCOPIC NURon 2024 BILIRUBIN BRIANA Negative Normal [facility] Comment on above: Performed By: #### N UM #### ([id number])[address] [place] [address], [place] [address] BLOOD/HGB BRIANA Negative Normal NEG [facility] Comment on above: Performed By: #### N UM #### ([id number])[address] [place] [address] [place] [address] GLUCOSE BRIANA Negative Normal NEG [facility] Comment on above: Performed By: #### N UM #### ([id number])[address] [place] [address], [place] [address] KETONES BRIANA Negative Normal NEG [facility] Comment on above: Performed By: #### N UM #### ([id number])[address] [place] [address] [place] [address] LEUKOCYTE ESTERASE BRIANA Negative Normal NEG [facility] Comment on above: Performed By: #### N UM #### ([id number])[address] [place] [address] [place] [address] NITRITE BRIANA Negative Normal NEG [facility] Comment on above: Performed By: #### N UM #### ([id number])[address] [place] [address] PH BRIANA 5.5 Normal 5.0-8.[address] [facility] Comment on above: Performed By: #### N UM #### ([id number])[address] [place] [address] PROTEIN BRIANA Negative Normal NEG [facility] Comment on above: Performed By: #### N UM #### ([id number])[address] [place] [address] SPECIFIC GRAVITY BRIANA 1.010 Normal 1.003-1.035 [facility] Comment on above: Performed By: #### N UM #### ([id number])[address] [place] [address] UROBILINOGEN BRIANA 0.2 eu/dL Normal <1.1 [facility] Comment on above: Performed By: #### N UM #### ([id number])[address] [place] [address] CERVICAL SPINE WO CONTRAS Ton 09-19-2024 [...] Jun Mayers DO 09/19/24 Final result Normal [facility] ECG 12 leadon 05-18-2024 TRACEMASTERVUE [facility] URINALYSISon 05-18-2024 Bilirubin Ql (U) Negative Normal NEG [facility] Comment on above: Performed By: #### U A #### [facility] ([id number]) [address], [address] [place] [address] BLOOD/HGB Negative Normal NEG [facility] Comment on above: Performed By: #### U A #### [facility] ([id number]) [address], [address] [place] [address] Color (U) YELLOW Normal YELLOW [facility] Comment on above: Performed By: #### U A #### [facility] ([id number]) [address], [address] [place] [address] Glucose Ql (U) Negative Normal NEG [facility] Comment on above: Performed By: #### U A #### [facility] ([id number]) [address], [address] [place] [address] Ketones Ql (U) Negative Normal NEG [facility] Comment on above: Performed By: #### U A #### [facility] ([id number]) [address], [address] [place] [address] Leukocyte esterase Test strip Ql (U) Negative Normal NEG [facility] Comment on above: Performed By: #### U A #### [facility] ([id number]) [address], [address] [place] [address] Nitrite Ql (U) Negative Normal NEG [facility] Comment on above: Performed By: #### U A #### [facility] ([id number]) [address], [address] [place] [address] pH (U) 6.5 [pH] Normal 5.0-8.[address] [facility] Comment on above: Performed By: #### U A #### [facility] ([id number]) [address] [place] [address] Protein Ql (U) Negative Normal NEG [facility] Comment on above: Performed By: #### U A #### [facility] ([id number]) [address], [address] [place] [address] Specific gravity (U) [Rel density] 1.009 Normal 1.003-1.035 [facility] Comment on above: Performed By: #### U A #### [facility] ([id number]) [address], [address] [place] [address] TURBIDITY CLEAR Normal CLEAR [facility] Comment on above: Performed By: #### U A #### [facility] ([id number]) [address], [address] [place] [address] Urobilinogen (U) [Mass/Vol] mg/dL Normal <1.1 [facility] Comment on above: Performed By: #### U A #### [facility] ([id number]) [address], [address] [place] [address] URINE CULTUREon 05-18-2024 Bacteria identified Cx Nom (U) SPECIMEN NOTES URINE RECEIVED WITHOUT PRESERVATIVE CULTURE RESULTS NO GROWTH AT <1000 CFU/mL Normal [facility] Comment on above: Performed By: #### 6 30-4 #### ([id number]) [address] [place] [address], [place] [address] [facility] ([id number]) [address], [address] [place] [address] BASIC METABOLIC PANLon 05-17 Anion gap [Moles/Vol] 10 mmol/L Normal 5-15 [facility] Comment on above: Performed By: #### B MP #### [facility] ([id number]) [address], [address] [place] [address] Calcium [Mass/Vol] 10.0 mg/dL Normal 8.5-10.[address] [facility] Comment on above: Performed By: #### B MP #### [facility] ([id number]) [address], [address] [place] [address] Chloride [Moles/Vol] 100 mmol/L Normal 98-109 [facility] Comment on above: Performed By: #### B MP #### [facility] ([id number]) [address], [address] [place] [address] CO2 [Moles/Vol] 27 mmol/L Normal 22-32 [facility] Comment on above: Performed By: #### B MP #### [facility] ([id number]) [address], [address] [place] [address] Creatinine [Mass/Vol] 1.10 mg/dL Normal 0.60-1.30 [facility] Comment on above: Result Comment: METH OD TRACEABLE TO IDMS STANDARD Performed By: #### B MP #### [facility] ([id number]) [address], [address] [place] [address] GFR/1.73 sq M.predicted among non-blacks MDRD (S/P/Bld) [Vol rate/Area] 83 mL/min/{1.73_m2} Normal >59 [facility] Comment on above: Result Comment: Reported eGFR is based on the CKD-EPI 2020 equation that does not use a race coefficient. Performed By: #### B MP #### [facility] ([id number]) [address], [address] [place] [address] Glucose [Mass/Vol] 98 mg/dL Normal 65-[address] [facility] Comment on above: Performed By: #### B MP #### [facility] ([id number]) [address], [address] [place] [address] Potassium [Moles/Vol] 3.8 mmol/L Normal 3.5-5.0 [facility] Comment on above: Performed By: #### B MP #### [facility] ([id number]) [address] [place] [address] Sodium [Moles/Vol] 137 mmol/L Normal 134-[address] [facility] Comment on above: Performed By: #### B MP #### [facility] ([id number]) [address], [address] [place] [address] Urea nitrogen [Mass/Vol] 16 mg/dL Normal 5-23 [facility] Comment on above: Performed By: #### B MP #### [facility] ([id number]) [address], [address] [place] [address] Basic Metabolic Panelon 05-01 Anion gap [Moles/Vol] 10 mmol/L 5 - 15 mmol/L [facility] Calcium [Mass/Vol] 10.0 mg/dL 8.5 - 10. 5 mg/dL [facility] Chloride [Moles/Vol] 100 mmol/L 98 - 10 9 mmol/L [facility] CO2 [Moles/Vol] 27 mmol/L 22 - 32 mmol/L [facility] Creatinine [Mass/Vol] 1.10 mg/dL 0.60 - 1.30 mg/dL [facility] Comment on above: METHOD TRACEABLE TO [employer] STANDARD eGFR (CKD-EPI)non-race dependent 83 - PINF [facility] Comment on above: Reported eGFR is based on the CKD-EPI 2020 equation that does not use a race coefficient. Glucose [Mass/Vol] 98 mg/dL 65 - 99 mg/dL [facility] Potassium [Moles/Vol] 3.8 mmol/L 3.5 - 5.0 mmol/L [facility] Sodium [Moles/Vol] 137 mmol/L 134 - 146 mmol/L [facility] Urea nitrogen [Mass/Vol] 16 mg/dL 5 - 23 mg/dL [facility] HGB A1C (GLYCO-HGB)on 2023 Glucose [Mass/Vol] 111 mg/dL Normal [facility] Comment on above: Performed By: #### H A1C, 6-3, 2986-8 #### [facility] ([id number]) [address] [place] [address] HbA1c (Bld) [Mass fraction] 5.5 % Normal 4.4-5.6 [facility] Comment on above: Result Comment: NOTE ADA Guidelines Result HgbA1c Normal : less than 5.7 % Prediabetes : 5.7 % to 6.4 % Diabetes : > 6.4 % Use with caution in patients with abnormal hemoglobin variants as the half-life of red blood cells and in vivo glycation rates are affected. Performed By: #### H A1C, 3016-3, 2986-8 #### [facility] ([id number]) [address] [place] [address] TSH Qnon 08-20-2024 TSH 1.75 uIU/mL Normal 0.49-4.67 [facility] Comment on above: Performed By: #### H A1C, 3016-3, 2986-8 #### [facility] ([id number]) [address] [place] [address] Testosterone [Mass/Vol]on TESTOSTERONE 2.39 ng/mL Normal 1.68-7.46 [facility] Comment on above: Performed By: #### H A1C, 3016-3, 2986-8 #### [facility] ([id number]) [address] [place] [address] MAMM DIAGNOSTIC BILATERAL W CADon 03-08-2024 MAMM [...] PM 2 a F/U REFER DR Mccord [facility] US BREAST LT LIMITEDon 03-08 US BREAST LT LIMITED US BREAST LT LIMITE D EXAM: US BREAST LT LIMITED, 03/08/2024 12:50 [...] 2:02 PM 2 F/U REFER DR Mccord [facility] Comprehensive metabolic pane kulwinder 02-10-2024 Albumin [Mass/Vol] 4.9 g/dL 3.2 - 5.3 g/dL [facility] ALP [Catalytic activity/Vol] 48 U/L 39 - 130 U/L [facility] ALT No additional P-5'-P [Catalytic activity/Vol] 21 U/L 0 - 40 U/L [facility] Anion gap [Moles/Vol] 8 mmol/L 5 - 15 mmol/L [facility] AST [Catalytic activity/Vol] 16 U/L 0 - 41 U/L [facility] Bilirubin [Mass/Vol] 0.6 mg/dL 0.3 - 1 .2 mg/dL [facility] Calcium [Mass/Vol] 10.0 mg/dL 8.5 - 10. 5 mg/dL [facility] Chloride [Moles/Vol] 101 mmol/L 98 - 10 9 mmol/L [facility] CO2 [Moles/Vol] 28 mmol/L 22 - 32 mmol/L [facility] Creatinine [Mass/Vol] 1.22 mg/dL 0.60 - 1.30 mg/dL [facility] Comment on above: METHOD TRACEABLE TO [facility] STANDARD eGFR (CKD-EPI)non-race dependent 74 - PINF [facility] Comment on above: Reported eGFR is based on the CKD-EPI 2020 equation that does not use a race coefficient. Glucose [Mass/Vol] 103 mg/dL High 65 - 99 mg/dL [facility] Potassium [Moles/Vol] 4.6 mmol/L 3.5 - 5.0 mmol/L [facility] Protein [Mass/Vol] 7.3 g/dL 6.0 - 8.0 g/dL [facility] Sodium [Moles/Vol] 137 mmol/L 134 - 146 mmol/L [facility] Urea nitrogen [Mass/Vol] 19 mg/dL 5 - 23 mg/dL [facility] Lipid 1996 panelon Cholesterol [Mass/Vol] 228 mg/dL High 150 - 200 mg/dL [facility] Cholesterol in HDL [Mass/Vol] 37 mg/dL Low 39 - PINF mg/dL [facility] Comment on above: HDL <40 mg/dL - High Risk HDL > or = 40mg/dL- Desirable HDL >60 mg/dL - Negative Risk Cholesterol in LDL [Mass/Vol] RESULT NOT REPORTED DUE TO HIGH TRIGLYCERIDE NINF - 130 mg/dL [facility] Cholesterol in VLDL [Mass/Vol] 115 mg/dL High 0 - 30 mg/dL [facility] Cholesterol.total/Cho lesterol in HDL [Mass ratio] 6.2 {ratio} High 1.0 - 5.0 [facility] Triglyceride [Mass/Vol] 577 mg/dL High 27 - 150 mg/dL [facility] No Panel Informationon 02-09 Interpretation and review of laboratory results Abnormal [facility] Vitamin D 25 hydroxyon 02-09 Vitamin D+Metabolites [Mass/Vol] 61.5 ng/mL 30 - 100 ng/mL [facility] Comment on above: Vitamin D status 25 [place] Vitamin D Deficiency <20 ng/mL Insufficiency 20-29 ng/mL Sufficiency 30-100 ng/mL Toxicity >100 ng/mL NOTE: A pediatric reference range has not been established by the client resolution specialist of this kit. The [place] [employer] recommends a Vitamin D level of = or >20ng/mL in infants and children. Vitamin D+Metabolites [Mass/ Vol]on 02-10-2024 [facility] COMPREHENSIVE METABOLIC PANE Kulwinder 02-09-2024 Albumin [Mass/Vol] 4.9 g/dL Normal 3.2-5.3 [facility] Comment on above: Performed By: #### C TUCKER, 50995-8, 2088-08, 86671-9 #### [facility] ([id number]) [address], [address] [place] [address] ALP [Catalytic activity/Vol] 48 U/L Normal 39-130 [facility] Comment on above: Performed By: #### C TUCKER, , 2088-08, 70543-9 #### [facility] ([id number]) [address], [address] [place] [address] ALT [Catalytic activity/Vol] 21 U/L Normal 0-40 [facility] Comment on above: Performed By: #### C TUCKER, , 2088-08, 90244-2 #### [facility] ([id number]) [address], [address] [place] [address] Anion gap [Moles/Vol] 8 mmol/L Normal 5-15 [facility] Comment on above: Performed By: #### C TUCKER, , 2088-08, 40546-7 #### [facility] ([id number]) [address], [address] [place] [address] AST [Catalytic activity/Vol] 16 U/L Normal 0-41 [facility] Comment on above: Performed By: #### Florencia CEBALLOS, 05505-4, 2088-08, 14121-1 #### [facility] ([id number]) [address], [address] [place] [address] Bilirubin [Mass/Vol] 0.6 mg/dL Normal 0.3-1.2 [facility] Comment on above: Performed By: #### Florencia CEBALLOS, , 2088-08, 40307-5 #### [facility] ([id number]) [address], [address] [place] [address] Calcium [Mass/Vol] 10.0 mg/dL Normal 8.5-10.5 [facility] Comment on above: Performed By: #### Florencia CEBALLOS, , 2088-08, 44981-8 #### [facility] ([id number]) [address] [place] [address] Chloride [Moles/Vol] 101 mmol/L Normal 98-109 [facility] Comment on above: Performed By: #### Florencia CEBALLOS, , 2088-08, 82115-8 #### [facility] ([id number]) [address] [place] [address] CO2 [Moles/Vol] 28 mmol/L Normal 22-32 [facility] Comment on above: Performed By: #### Florencia CEBALLOS, , 2088-08, 96973-6 #### [facility] ([id number]) [address] [place] [address] Creatinine [Mass/Vol] 1.22 mg/dL Normal 0.60-1.30 [facility] Comment on above: Result Comment: METH OD TRACEABLE TO IDMS STANDARD Performed By: #### C TUCKER, , 2088-08, 61300-7 #### [facility] ([id number]) [address] [facility] [address] [place] [address] GFR/1.73 sq M.predicted among non-blacks MDRD (S/P/Bld) [Vol rate/Area] 74 mL/min/{1.73_m2} Normal >59 [facility] Comment on above: Result Comment: Reported eGFR is based on the CKD-EPI 2020 equation that does not use a race coefficient. Performed By: #### C TUCKER, , 2088-08, 56653-2 #### [facility] ([id number]) [address], [facility] [address] [place] [address] Glucose [Mass/Vol] 103 mg/dL High 65-99 [facility] Comment on above: Performed By: #### Florencia CEBALLOS, , 2088-08, 58967-5 #### [facility] ([id number]) [address] [address] [place] [address] Potassium [Moles/Vol] 4.6 mmol/L Normal 3.5-5.0 [facility] Comment on above: Performed By: #### Florencia CEBALLOS, , 2088-08, 05269-0 #### [facility] ([id number]) [address] [address] [place] [address] Protein [Mass/Vol] 7.3 g/dL Normal 6.0-8.0 [facility] Comment on above: Performed By: #### C TUCKER, , 2088-08, 01294-7 #### [facility] ([id number]) [address] [address] [place] [address] Sodium [Moles/Vol] 137 mmol/L Normal 134-146 [facility] Comment on above: Performed By: #### C TUCKER, , 2088-08, 09400-6 #### [facility] ([id number]) [address] [place] [address] Urea nitrogen [Mass/Vol] 19 mg/dL Normal 5-23 [facility] Comment on above: Performed By: ###Catalino Don MP, , 2088-08, 51931-0 #### [facility] ([id number]) [address] [place] [address] DIRECT LDLon 02-09-2024 Cholesterol in LDL [Mass/Vol] 79 mg/dL Normal <130 [facility] Comment on above: Result Comment: LDL <100 mg/dL - Desirable LDL 130-159 mg/dL - Borderline High Risk LDL >160 mg/dL - High Risk Performed By: ###Catalino Don MP, , 2088-08, 85490-4 #### [facility] ([id number]) [address] [place] [address] Lipid 1996 panelon Cholesterol [Mass/Vol] 228 mg/dL High 150-200 [facility] Comment on above: Performed By: ###[place], [address]-1, 2088-08, 16526-1 #### [facility] ([id number]) [address] [place] [address] Cholesterol in HDL [Mass/Vol] 37 mg/dL Low >39 [facility] Comment on above: Result Comment: HDL <40 mg/dL - High Risk HDL > or = 40mg/dL- Desirable HDL >60 mg/dL - Negative Risk Performed By: #### Florencia CEBALLOS, , 2088-08, 66040-5 #### [facility] ([id number]) [address] [place] [address] Cholesterol in VLDL [Mass/Vol] 115 mg/dL High 0-30 [facility] Comment on above: Performed By: #### C TUCKER, , 2088-08, 35882-5 #### [facility] ([id number]) [address], [facility] [address] [place] [address] CHOLESTEROL:HDL 6.2 High 1.0-5.0 [facility] Comment on above: Performed By: #### Florencia CEBALLOS, 63884-9, 2088-08, 69916-8 #### [facility] ([id number]) [address], [facility] [address] [place] [address] LDL (CALC) RESULT NOT REPORTED DUE TO HIGH TRIGLYCERIDE Normal <130 [facility] Comment on above: Performed By: #### Florencia CEBALLOS, , 2088-08, 42259-3 #### [facility] ([id number]) [address], [facility] [address] [place] [address] Triglyceride [Mass/Vol] 577 mg/dL High 27-150 [facility] Comment on above: Performed By: #### Florencia CEBALLOS, , 2088-08, 95015-2 #### [facility] ([id number]) [address] [place] [address] Vitamin D+Metabolites [Mass/ Vol]on 02-09-2024 VITAMIN D 25 HYD TOT 61.5 ng/mL Normal 30-100 [facility] Comment on above: Result Comment: Vitamin D status 25 [place] Vitamin D Deficiency <20 ng/mL Insufficiency 20-29 ng/mL Sufficiency 30-100 ng/mL Toxicity >100 ng/mL NOTE: A pediatric reference range has not been established by the client resolution specialist of this kit. The [place] [employer] recommends a Vitamin D level of = or >20ng/mL in infants and children. Performed By: #### C , 27522-6, 2089-1, 03843-0 #### [facility] ([id number]) [address] [place] [address] MRI CERVICAL SPINE WO CONTRA STon 10-07-2023 [...] stenosis or right foraminal narrowing. There is tkgl-[id number] left foraminal narrowing. C5-C6: There is uncovertebral and facet hypertrophy. There is no canal stenosis or foraminal narrowing. C6-C7: There is a disc osteophyte complex with uncovertebral and facet hypertrophy. There is no canal stenosis or right foraminal narrowing. There is [id number]-[id number] left foraminal narrowing. C7-T1: There is a [...] Edgar Ray MD 10/07/23 Final result Normal [facility] XR CSPINE MIN 4 VIEWSon - XR CSPINE MIN 4 VIEWS EXAMINATION: XR [...] degenerative disc disease. Electronically authenticated by: GRETA LOCKHART Date: 2022-12-16 15:11 Normal [facility] XR CSPINE OBL FLEX_EXTon XR CSPINE OBL [...] C3-4 and C6-7. Electronically authenticated by: GRETA LOCKHART Date: 2022-10-27 15:03 Normal [facility] COMPREHENSIVE METABOLIC PANE Kulwinder 12-25-2021 Albumin [Mass/Vol] 4.9 g/dL Normal 3.6-5.1 [facility] Comment on above: Performed By: #### 1 7306, 7600, 42025, 5363 #### [facility] [place] [address] Director Pediatric: Nicolas Araujo MD Albumin/Globulin [Mass ratio] 2.1 {ratio} Normal 1.0-2.5 [facility] Comment on above: Performed By: #### 1 7306, 7600, 15586, 5363 #### [facility] [place] [address] Director Pediatric: Nicolas Araujo MD ALP [Catalytic activity/Vol] 49 U/L Normal 36-130 [facility] Comment on above: Performed By: #### 1 7306, 7600, 03998, 5363 #### [facility] [place] [address] Director Pediatric: Nicolas Araujo MD ALT [Catalytic activity/Vol] 14 U/L Normal 9-46 [facility] Comment on above: Performed By: #### 1 7306, 7600, 36008, 5363 #### [facility] [place] [address] Director Pediatric: Nicolas Araujo MD AST [Catalytic activity/Vol] 14 U/L Normal 10-40 [facility] Comment on above: Performed By: #### 1 7306, 7600, 23002, 5363 #### [facility] [place] [address] Director Pediatric: Nicolas Araujo MD Bilirubin [Mass/Vol] 0.7 mg/dL Normal 0.2-1.2 [facility] Comment on above: Performed By: #### 1 7306, 7600, 66019, 5363 #### [facility] of [address], [address] [place] [address] Director Pediatric: Nicolas Araujo MD BUN/CREATININE RATIO NOT APPLICABLE Normal 6-22 [facility] Comment on above: Performed By: #### 1 7306, 7600, 20966, 5363 #### [facility] of [address], [address] [place] [address] Director Pediatric: Nicolas Araujo MD Calcium [Mass/Vol] 9.9 mg/dL Normal 8.6-10.3 [facility] Comment on above: Performed By: #### 1 7306, 7600, 28212, 5363 #### [facility] of [address], [address] [place] [address] Director Pediatric: Nicolas Araujo MD Chloride [Moles/Vol] 101 mmol/L Normal 98-110 [facility] Comment on above: Performed By: #### 1 7306, 7600, 77316, 5363 #### [facility] of [address], [address] [place] [address] Director Pediatric: Nicolas Araujo MD CO2 [Moles/Vol] 27 mmol/L Normal 20-32 [facility] Comment on above: Performed By: #### 1 7306, 7600, 23019, 5363 #### [facility] of [address], [address] [place] [address] Director Pediatric: Nicolas Araujo MD Creatinine [Mass/Vol] 1.16 mg/dL Normal 0.60-1.[address] [facility] Comment on above: Performed By: #### 1 7306, 7600, 79800, 5363 #### [facility] of [address], [address] [place] [address] Director Pediatric: Nicolas Araujo MD eGFR NON-AFR. MALAGASY 76 mL/min/1.73m2 Normal > OR = 60 [facility] Comment on above: Performed By: #### 1 7306, 7600, 91795, 5363 #### [facility] [address] [address] Director Pediatric: Nicolas Araujo MD GFR/1.73 sq M.predicted among blacks MDRD (S/P/Bld) [Vol rate/Area] 88 mL/min/{1.73_m2} Normal > OR = 60 [facility] Comment on above: Performed By: #### 1 7306, 7600, 93432, 5363 #### [facility] [address], [address] [place] [address] Director Pediatric: Nicolas Araujo MD Globulin (S) [Mass/Vol] 2.3 g/dL Normal 1.9-3.7 [facility] Comment on above: Performed By: #### 1 7306, 7600, 59316, 5363 #### [facility] [place] [address] Director Pediatric: Nicolas Araujo MD Glucose [Mass/Vol] 93 mg/dL Normal 65-99 [facility] Comment on above: Result Comment: Fasting reference interval Performed By: #### 1 7306, 7600, 19035, 5363 #### [facility] [place] [address] Director Pediatric: Nicolas Araujo MD Potassium [Moles/Vol] 4.3 mmol/L Normal 3.5-5.[address] [facility] Comment on above: Performed By: #### 1 7306, 7600, 03151, 5363 #### [facility] [place] [address] Director Pediatric: Nicolas Araujo MD Protein [Mass/Vol] 7.2 g/dL Normal 6.1-8.1 [facility] Comment on above: Performed By: #### 1 7306, 7600, 71000, 5363 #### [facility] of [place] [address] Director Pediatric: Nicolas Araujo MD Sodium [Moles/Vol] 137 mmol/L Normal 135-146 [facility] Comment on above: Performed By: #### 1 7306, 7600, [id number], 5363 #### [facility] [address], [address] [place] [address] Director Pediatric: Nicolas Araujo MD Urea nitrogen [Mass/Vol] 17 mg/dL Normal 7-25 [facility] Comment on above: Performed By: #### 1 7306, 7600, [id number], 5363 #### [facility] [address], [address] [place] [address] Director Pediatric: Nicolas Araujo MD LIPID PANEL, [facility] 04-2 Cholesterol [Mass/Vol] 200 mg/dL High <200 [facility] Comment on above: Order Comment: FASTI NG:YES FASTING: YES Performed By: #### 1 7306, 7600, 26337, 5363 #### [facility] [address], [address] [place] [address] Director Pediatric: Nicolas Araujo MD Cholesterol in HDL [Mass/Vol] 38 mg/dL Low > OR = 40 [facility] Comment on above: Order Comment: FASTI NG:YES FASTING: YES Performed By: #### 1 7306, 7600, 53425, 5363 #### [facility] [address], [address] [place] [address] Director Pediatric: Nicolas Araujo MD Cholesterol in LDL [Mass/Vol] [...] LDL-C. Jamison PEMBERTON et al. AGUSTO. 2013;310(19): 8343-2563 (http://education.Qianrui Clothes.CBRITE/faq/VQX430) Performed By: #### 1 7306, 7600, 61570, 5363 #### [facility] [address], [address] [place] [address] Director Pediatric: Nicolas Araujo MD Cholesterol.total/Cho lesterol in HDL [Mass ratio] 5.3 {ratio} High <5.0 [facility] Comment on above: Order Comment: FASTI NG:YES FASTING: YES Performed By: #### 1 7306, 7600, 68627, 5363 #### [facility] [address], [address] [place] [address] Director Pediatric: Nicolas Araujo MD NON HDL CHOLESTEROL 162 mg/dL (calc) High <130 [facility] Comment on above: Order Comment: FASTI NG:YES FASTING: YES Result Comment: For patients with diabetes plus 1 major ASCVD risk factor, treating to a non-HDL-C goal of <100 mg/dL (LDL-C of <70 mg/dL) is considered a therapeutic option. Performed By: #### 1 7306, 7600, 81466, 5363 #### [facility] [address], [address] [place] [address] Director Pediatric: Nicolas Araujo MD Triglyceride [Mass/Vol] 364 mg/dL High <150 [facility] Comment on above: Order Comment: FASTI NG:YES FASTING: YES Result Comment: If a non-fasting specimen was collected, consider repeat triglyceride testing on a fasting specimen if clinically indicated. Eugenie et al. J. of Clin. Lipidol. 2015;9:129-169. Performed By: #### 1 7306, 7600, 81365, 5363 #### [facility] [address], [address] [place] [address] Director Pediatric: Nicolas Araujo MD PSA, TOTALon 12-25-2021 PSA, [...] disease. Performed By: #### 1 7306, 7600, 71539, 5363 #### [facility] [address], [address] [place], [place] [id number] Director Pediatric: Nicolas Araujo MD VITAMIN D,25-OH,TOTAL,IAon 0 12-25-2021 [...] D, (D2,D3), LC/MS/MS is recommended: order code 46131 (patients >2yrs). See Note 1 Note 1 For additional information, please refer to http://education.AlloCure/faq/CQV452 (This link is being provided for informational/ educational purposes only.) Performed By: #### 1 7306, 7600, 33023, 5363 #### [facility] [address], [address] [place] [address] Director Pediatric: Nicolas Araujo MD CT CERVICAL SPINE WITHOUT CO NTRASTon 10-30-2021 CT CERVICAL SPINE WITHOUT CONTRAST [facility] Department of Radiology [address] [place] [id number] Patient Name: AVEL FUNES : 1975 Sex: M Age: Race: White Pt. Location: Patient Status: D Ordered Date: 09/18/2021 3:30:00 PM Completed Date: 10/30/2021 03:13 PM Requesting Provider: ALMA LEVINE Attending Provider: ALMA LEVIEN Report Copy To: RODRICK RICHARDSON Signs & Symptoms: M54.12 Radiculopathy, cervical region I10 History: Thu [phone] [facility] approval 09/19-10/03/21 Comments: Exam: CT [...] C3-4. Electronically signed: Greta Waters. Transcribed by: [email or web address], User Resident: Electronically Signed by: GRETA WATERS @ 11/02/2021 08:47 AM Normal [facility] CERVICAL SPINE 4 OR 5 VIEWS n 09-11-2021 CERVICAL SPINE 4 OR 5 VIEWS [facility] Department of Radiology [address] [place] [id number] Patient Name: AVEL FUNES : 1975 [...] C2. Electronically signed: Avtar Barnes. Transcribed by: [email or web address], User Resident: Electronically Signed by: AVTAR BARNES @ 09/12/2021 02:45 PM Normal [facility] Comment on above: Order Comment: evalu ate CERVICAL SPINE 2 OR 3 [facility] 02-06-2021 CERVICAL SPINE 2 OR 3 [facility] Department of Radiology [address] [place] [phone] Patient Name: AVEL FUNES : 1975 Sex: M Age: Race: White Pt. Location: Patient Status: D Ordered Date: 02/06/2021 2:00:00 PM Completed Date: 02/06/2021 02:21 PM Requesting Provider: ALMA LEVINE Attending Provider: ALMA LEVINE Report Copy To: RODRICK RICHARDSON Signs & Symptoms: M50.30 Other cervical disc degeneration, unsp cervical region I10 History: [place] Comments: ap, lat Exam: CERVICAL SPINE 2 [...] or acute bony pathology. Electronically signed: Koby Muhammad. Transcribed by: [email or web address], User Resident: Electronically Signed by: KOBY MUHAMMAD @ 02/07/2021 09:02 AM Normal [facility] Comment on above: Order Comment: ap, l at CBC and Differentialon 04-06 Abs Baso 0.04 k/uL Normal <0.11 [facility] Abs Letcher 0.72 k/uL Normal <0.87 [facility] Abs Neut 4.71 k/uL Normal 1.45-7.50 [facility] Absolute nRBC <0.01 [facility] WBC (Bld) 0.5 % Normal [facility] DTYPE Auto Diff Normal [facility] Eosinophils (Bld) [#/Vol] 0.11 10*3/uL Normal <0.46 [facility] Eosinophils/100 WBC (Bld) 1.3 % Normal [facility] Erythrocyte distribution width (RBC) [Ratio] 12.0 % Normal 11.5-15.0 [facility] Hematocrit (Bld) [Volume fraction] 43.4 % Normal 39.0-51.0 [facility] Hemoglobin (Bld) [Mass/Vol] 14.2 g/dL Normal 13.0-17.0 [facility] Lymphocytes (Bld) [#/Vol] 2.63 10*3/uL Normal 1.00-4.00 [facility] Lymphocytes/100 WBC (Bld) 32.0 % Normal [facility] MCH (RBC) [Entitic mass] 28.8 pG Normal 26.0-34.0 [facility] MCHC (RBC) [Mass/Vol] 32.7 g/dL Normal 30.5-36.0 [facility] MCV (RBC) [Entitic vol] 88.0 fL Normal 80.0-100.0 [facility] Monocytes/100 WBC (Bld) 8.8 % Normal [facility] Neutrophils/100 WBC (Bld) 57.4 % Normal [facility] NRBCs 0.0 /100 WBC Normal 0 [facility] l Platelet mean volume (Bld) [Entitic vol] 11.0 fL Normal 9.0-12.7 [facility] l Platelets (Bld) [#/Vol] 280 10*3/uL Normal 150-400 [facility] RBC (Bld) [#/Vol] 4.93 10*6/uL Normal 4.20-6.00 [facility] WBC (Bld) [#/Vol] 8.21 10*3/uL Normal 3.70-11.[address] [facility] [address] ABD/PEL W IVCONon 019 CT ABD/PEL W IVCON * * *Final Report* * * DATE OF EXAM: Apr 06 2019 7:38PM [facility] 0530 - CT ABD/PEL W IVCON [...] Lymph nodes: No abdominal or pelvic lymphadenopathy. Mesentery/Peritoneum : No ascites or mass. Retroperitoneum: No mass. Vasculature: The celiac axis and SMA are patent. The portal vein and branches, splenic vein, SMV, and hepatic veins are patent. No abdominal aortic or iliac artery aneurysm. Pelvis: No mass, ascites or fluid collection. Bones/Soft Tissues: No significant finding. Lower thorax: Unremarkable. IMPRESSION: No evidence of an acute intra-abdominal or pelvic process. Feather Mixer: PSCB Transcribe Date/Time: Apr 06 2019 7:43P Dictated by : ANALY YEPEZ MD This examination was interpreted and the report reviewed and electronically signed by: ANALY YEPEZ MD on Apr 06 2019 7:59PM EST [id number] Normal [facility] Comp Metabolic Panelon 04-06 Albumin [Mass/Vol] 4.8 g/dL Normal 3.9-4.9 [facility] ALP [Catalytic activity/Vol] 57 U/L Normal 38-113 [facility] ALT [Catalytic activity/Vol] Unable to assay. Specimen hemolyzed. Normal 10-54 [facility] Anion gap [Moles/Vol] 12 mmol/L Normal 9-18 [facility] AST [Catalytic activity/Vol] Unable to assay. Specimen hemolyzed. Normal 14-40 [facility] Bilirubin [Mass/Vol] 0.4 mg/dL Normal 0.2-1.3 [facility] Calcium [Mass/Vol] 9.8 mg/dL Normal 8.5-10.2 [facility] Chloride [Moles/Vol] 97 mmol/L Normal 97-105 [facility] CO2 [Moles/Vol] 28 mmol/L Normal 22-30 [facility] ital Creatinine [Mass/Vol] 1.03 mg/dL Normal 0.73-1.22 [facility] eGFR- Amer. >60 Normal [facility] GFR/1.73 sq M predicted among non-blacks MDRD (S/P/Bld) [Vol rate/Area] mL/min/{1.73_m2} Normal [facility] Comment on above: Result Comment: eGFR [...] GFR. Glucose [Mass/Vol] 95 mg/dL Normal 74-99 [facility] Comment on above: Result Comment: The [place] Diabetes Association (ADA) provides guidance for cutoff [...] Standards of Medical Care in Diabetes 2016, [place] Diabetes Association. Diabetes Care. 2016.39(Suppl 1). Potassium [Moles/Vol] 4.4 mmol/L Normal 3.7-5.1 [facility] Comment on above: Result Comment: Spec arnulfo is slightly hemolyzed. Results are unaffected by this level of hemolysis. The performance characteristics of this test were determined by [facility]'s [facility]. It has not been cleared or approved by the FDA. [facility] is regulated under CLIA as qualified to perform high complexity testing. This test is used for clinical purposes. It should not be regarded as investigational or for research. Protein [Mass/Vol] 7.5 g/dL Normal 6.3-8.0 [facility] Sodium [Moles/Vol] 137 mmol/L Normal 136-144 [facility] Urea nitrogen [Mass/Vol] 9 mg/dL Normal 9-24 [facility] ED NOTEon 04-06-2019 ED NOTE HNO ID: [id number] Author: Patricia Calero) KELVIN Astorga Service: ? [...] questions and/or concerns at this time. [facility] ED NOTE HNO ID: [id number] Author: Patricia Calero) KELVIN Astorga Service: ? Author Type: Registered Nurse Type: ED Notes Filed: 04/06/2019 8:46 PM Note Text: The P.A is at bedside. [facility] ED NOTE HNO ID: [id number] Author: Belgica Calero) KELVIN Dukes Service: Nursing Author Type: Registered Nurse Type: ED Notes Filed: 04/06/2019 6:23 PM Note Text: Pt presents to ER for evaluation of rectal bleeding x 3 days. Pt states that he was diagnosed with diverticulitis yesterday without a CT scan and was not started on any medications. [facility] ED PROV NOTEon 04-06-2019 ED PROV NOTE HNO ID: [id number] Author: Suyapa Vargas Service: ? Author Type: Physician Sack Maker Type: ED Provider Notes Filed: 04/06/2019 9:08 [...] Not on file ALLERGIES Allergen Reactions - [place] Other: See Comments - Ibuprofen GI Upset - Penicillin Rash - Prednisone Swelling Review of Systems Constitutional: Negative. HENT: Negative. Respiratory: Negative. Cardiovascular: Negative. Gastrointestinal: Positive for abdominal pain and blood in stool. Genitourinary: Negative. Musculoskeletal: Negative. Skin: Negative. Neurological: Negative. Psychiatric/Behavior al: Negative. All other systems reviewed and are [...] Ordered and Reviewed CBC + AUTO DIFF (AK,AV,EU,FV,HL,ALYSON,M M,SP) COMPREHENSIVE METABOLIC PANEL (AK,AV,EU,FV,HL,ALYSON,M M,SP) FECAL OCCULT BLOOD - ED(POC) Procedures ED [...] Patient is to follow up with Dr. Richardson. Return if worse. Patient and at bedside [...] SIGNATURE: TRICIA Watters Pa-C 04/06/19 2108 [facility] PROGRESSon 04-06-2019 PROGRESS HNO ID: [id number] Author: Eileen Dougherty (Rt) Service: Radiology Author Type: Lighting Designer Type: Progress Notes Filed: 04/06/2019 7:39 PM [...] Laura April 06, 2019 7:39 PM [facility] Vital Signs Date Time Vital Sign Value Performing Clinician Facility 02-06-2025 11:34-0400 Diastolic blood pressure 80 mm[Hg] [facility] 02-06-2025 11:34-0400 Heart rate 49 /min Rodrick Chongreginald DO Work Phone: [facility] 02-06-2025 11:34-0400 SaO2% (BldA) [Mass fraction] 98 % Rodrick Chongng DO Work Phone: [facility] 02-06-2025 11:34-0400 Systolic blood pressure 128 mm[Hg] Rodrick Richardson DO Work Phone: [facility] 02-06-2025 11:31-0400 Body height 172.7 cm Rodrick Chongng DO Work Phone: [facility] 02-06-2025 11:31-0400 Body mass index (BMI) [Ratio] 31.72 kg/m2 Rodrick Chongng DO Work Phone: [facility] 02-06-2025 11:31-0400 Body temperature 97.9 [degF] Rodrick Richardson DO Work Phone: [facility] 02-06-2025 11:31-0400 Body weight 94.62 kg Rodrick Richardson DO Work Phone: [facility] 02-06-2025 11:31-0400 Respiratory rate 20 /min Rodirck Richardson DO Work Phone: [facility] 01-17-2025 11:19-0400 Body height 170.2 cm Susan Abernathy MD Work Phone: [facility] 01-17-2025 11:19-0400 Body mass index (BMI) [Ratio] 32.11 kg/m2 Susan Abernathy MD Work Phone: [facility] 01-17-2025 11:19-0400 Body weight 92.99 kg Susan Abernathy MD Work Phone: [facility] 01-17-2025 11:19-0400 Diastolic blood pressure 84 mm[Hg] Susan Abernathy MD Work Phone: [facility] 01-17-2025 11:19-0400 Heart rate 85 /min Susan Abernathy MD Work Phone: [facility] 01-17-2025 11:19-0400 Systolic blood pressure 123 mm[Hg] Susan Abernathy MD Work Phone: [facility] 12-27-2024 11:32-0400 Body height 170.2 cm Susan Abernathy MD Work Phone: [facility] 12-27-2024 11:32-0400 Body mass index (BMI) [Ratio] 32.11 kg/m2 Susan Abernathy MD Work Phone: [facility] 12-27-2024 11:32-0400 Body weight 92.99 kg Susan Abernathy MD Work Phone: [facility] 12-27-2024 11:32-0400 Diastolic blood pressure 67 mm[Hg] Susan Abernathy MD Work Phone: [facility] 12-27-2024 11:32-0400 Heart rate 102 /min Susan Abernathy MD Work Phone: [facility] 12-27-2024 11:32-0400 Systolic blood pressure 102 mm[Hg] Susan Abernathy MD Work Phone: [facility] 12-23-2024 09:21-0400 Body height 172.7 cm Luciana Escoto MD Work Phone: [facility] 12-23-2024 09:21-0400 Body mass index (BMI) [Ratio] 31.93 kg/m2 Luciana Escoto MD Work Phone: [facility] 12-23-2024 09:21-0400 Body weight 95.25 kg Luciana Escoto MD Work Phone: [facility] 12-23-2024 09:21-0400 Diastolic blood pressure 70 mm[Hg] Luciana Escoto MD Work Phone: [facility] 12-23-2024 09:21-0400 Heart rate 96 /min Luciana Escoto MD Work Phone: [facility] 12-23-2024 09:21-0400 Respiratory rate 16 /min Luciana Escoto MD Work Phone: [facility] 12-23-2024 09:21-0400 SaO2% (BldA) [Mass fraction] 98 % Luciana Escoto MD Work Phone: [facility] 12-23-2024 09:21-0400 Systolic blood pressure 110 mm[Hg] Luciana Escoto MD Work Phone: [facility] 12-15-2024 13:13-0400 Diastolic blood pressure 80 mm[Hg] Rodrick Furlong DO Work Phone: [facility] 12-15-2024 13:13-0400 Heart rate 98 /min Rodrick Furlong DO Work Phone: [facility] 12-15-2024 13:13-0400 SaO2% (BldA) [Mass fraction] 98 % Rodrick Furlong DO Work Phone: [facility] 12-15-2024 13:13-0400 Systolic blood pressure 110 mm[Hg] Rodrick Furlong DO Work Phone: [facility] 12-15-2024 13:06-0400 Body height 172.7 cm Rodrick Furlong DO Work Phone: [facility] 12-15-2024 13:06-0400 Body mass index (BMI) [Ratio] 31.18 kg/m2 Rodrick Furlong DO Work Phone: [facility] 12-15-2024 13:06-0400 Body temperature 98.01 [degF] Rodrick Furlong DO Work Phone: [facility] 12-15-2024 13:06-0400 Body weight 92.99 kg Rodrick Furlong DO Work Phone: [facility] 12-15-2024 13:06-0400 Respiratory rate 20 /min Rodrick Furlong DO Work Phone: [facility] 06-06-2024 17:16-0400 Body height 172.72 cm [facility] 06-06-2024 17:16-0400 Body mass index (BMI) [Ratio] 30.2 kg/m2 [facility] 06-06-2024 17:16-0400 Body temperature 98 [degF] [facility] 06-06-2024 17:16-0400 Body weight 90.37 kg [facility] 06-06-2024 17:16-0400 Diastolic blood pressure 56 mm[Hg] [facility] 06-06-2024 17:16-0400 Heart rate 87 /min [facility] 06-06-2024 17:16-0400 Respiratory rate 18 /min [facility] 06-06-2024 17:16-0400 SaO2% (BldA) [Mass fraction] 98 % [facility] 06-06-2024 17:16-0400 Systolic blood pressure 89 mm[Hg] [facility] 05-17-2024 09:08-0400 Body height 170.2 cm [facility] 05-17-2024 09:08-0400 Body mass index (BMI) [Ratio] 30.54 kg/m2 Pm 2 [facility] 05-17-2024 09:08-0400 Body weight 88.45 kg Pm 2 [facility] 03-24-2024 11:10-0400 Body height 172.7 cm Rodrick Furlong DO Work Phone: [facility] 03-24-2024 11:10-0400 Body mass index (BMI) [Ratio] 30.53 kg/m2 Rodrick Furlong DO Work Phone: [facility] 03-24-2024 11:10-0400 Body temperature 98.1 [degF] Rodrick Furlong DO Work Phone: [facility] 03-24-2024 11:10-0400 Body weight 91.08 kg Rodrick Furlong DO Work Phone: [facility] 03-24-2024 11:10-0400 Diastolic blood pressure 60 mm[Hg] Rodrick Furlong DO Work Phone: [facility] 03-24-2024 11:10-0400 Heart rate 84 /min Rodrick Angelolong DO Work Phone: [facility] 03-24-2024 11:10-0400 Respiratory rate 18 /min Rodrick Stephenslong DO Work Phone: [facility] 03-24-2024 11:10-0400 SaO2% (BldA) [Mass fraction] 98 % Rodrcik Furlong DO Work Phone: [facility] 03-24-2024 11:10-0400 Systolic blood pressure 90 mm[Hg] Rodrick Stephenslong DO Work Phone: [facility] 03-08-2024 14:42-0400 Body height 172.7 cm Suzanne Nguyen MD Work Phone: [facility] 03-08-2024 14:42-0400 Body mass index (BMI) [Ratio] 30.26 kg/m2 Suzanne Nguyen MD Work Phone: [facility] 03-08-2024 14:42-0400 Body weight 90.27 kg Suzanne Nguyen MD Work Phone: [facility] 03-08-2024 14:42-0400 Diastolic blood pressure 80 mm[Hg] Suzanne Nguyen MD Work Phone: [facility] 03-08-2024 14:42-0400 Heart rate 78 /min Suzanne Nguyen MD Work Phone: [facility] 03-08-2024 14:42-0400 Systolic blood pressure 114 mm[Hg] Suzanne Nguyen MD Work Phone: [facility] 02-09-2024 14:27-0400 Body height 172.7 cm Rodrick Furlong DO [facility] 02-09-2024 14:27-0400 Body mass index (BMI) [Ratio] 30.26 kg/m2 Rodrick Chongng DO Work Phone[facility] 02-09-2024 14:27-0400 Body temperature 98.1 [degF] Rod[facility]ng DO [facility] 02-09-2024 14:27-0400 Body weight 90.27 kg Rodrick Chongng DO Work Phone: [facility] 02-09-2024 14:27-0400 Diastolic blood pressure 70 mm[Hg] Rodrick Chongng DO Work Phone: [facility] 02-09-2024 14:27-0400 Heart rate 102 /min Rodrick Richardson DO Work Phone: [facility] 02-09-2024 14:27-0400 SaO2% (BldA) [Mass fraction] 96 % Rodrick Richardson DO Work [facility]: [facility] 02-09-2024 14:27-0400 Systolic blood pressure 100 mm[Hg] Rodrick Richardson [facility] Encounters Encounter Date Encounter Type Care Provider Facility Start: 04-11-2025 End: 04-11-2025 Orders Only Rodrick Richardson DO Work Phone: [facility] - [facility] Start: 03-20-2025 End: 03-20-2025 ambulatory [facility] Start: 02-24-2025 End: 02-24-2025 ambulatory [facility] Start: 02-23-2025 End: 02-23-2025 Refill Rodrick Richardson DO Work Phone: [facility] Comment on above: Urticaria, unspecifi ed Start: 02-09-2025 End: 02-13-2025 Orders Only Rodrick Richardson DO Work Phone: [facility] - [facility] Comment on above: PONCHO (obstructive sle ep apnea) (Primary Dx) Start: 02-07-2025 End: 02-09-2025 Telephone encounter Pretty Watson [facility] - Family Medicine Start: 02-06-2025 End: 02-06-2025 Office outpatient visit 25 minutes Rodrick Richardson DO Work Phone: [facility] Comment on above: Essential hypertensi on (Primary Dx); Depressive disorder; Chronic anxiety; PONCHO (obstructive sleep apnea); Orthostatic hypotension; Persistent asthma without complication, unspecified asthma severity; Class 1 obesity due to excess calories with serious comorbidity and body mass index (BMI) of 31.0 to 31.9 in adult Start: 02-06-2025 End: 02-06-2025 ambulatory [facility] Start: 01-30-2025 End: 01-30-2025 Bamboo flowsheet Luciana Escoto MD Work Phone: [facility] Start: 01-30-2025 End: 01-30-2025 Bamboo flowsheet Luciana Escoto MD Work Phone: [facility] Start: 01-30-2025 End: 01-30-2025 Office outpatient visit 25 minutes Luciana Escoto MD Work Phone: [facility] Comment on above: Hypoglycemia Start: 01-30-2025 End: 01-30-2025 ambulatory LUCIANA ESCOTO Not Available Start: 01-30-2025 End: 01-30-2025 ambulatory [facility] Start: 01-25-2025 End: 01-25-2025 Refill Rodrick Richardson DO Work Phone: [facility] - [facility] Comment on above: Gastro-esophageal re flux disease without esophagitis; Other specified depressive episodes; Asthma, unspecified asthma severity, unspecified whether complicated, unspecified whether persistent; Hyperlipidemia, unspecified Start: 01-17-2025 End: 01-17-2025 Bamboo flowskathy Abernathy MD Work Phone: [facility] Start: 01-17-2025 End: 01-17-2025 Bamramono flowskathy Abernathy MD Work Phone: [facility] Start: 01-17-2025 End: 01-17-2025 Office outpatient visit 15 minutes Susan Abernathy MD Work Phone: [facility] Comment on above: 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); Dysfunction of right eustachian tube; Foreign body of right ear, initial encounter Start: 01-17-2025 End: 01-17-2025 ambulatory SUSAN ABERNATHY Not Available Start: 01-13-2025 End: 01-18-2025 Telephone encounter Pretty Watson [facility] Internal Medicine - Family Medicine Start: 12-27-2024 End: 12-27-2024 ambulatory SUSAN ABERNATHY Not Available Start: 12-27-2024 End: 12-27-2024 Office outpatient new 45 minutes Susan Abernathy MD Work Phone: [facility] Comment on above: ETD (Eustachian tube dysfunction), bilateral (Primary Dx); Chronic myringitis of right ear Start: 12-26-2024 End: 12-26-2024 Orders Only Rodrick Richardson DO Work Phone: [facility] Internal Medicine - Family [facility] Start: 12-24-2024 End: 12-24-2024 ambulatory RODRICK RICHARDSON [facility] Start: 12-23-2024 End: 12-23-2024 Bamboo ap Escoto MD Work Phone: [facility] Start: 12-23-2024 End: 12-23-2024 Bamboo flowskathy Escoto MD Work Phone: [facility] Start: 12-23-2024 End: 12-23-2024 Office outpatient new 45 minutes Luciana Escoto MD Work Phone: [facility] Comment on above: Hypoglycemia (Primar y Dx); Screening for diabetes mellitus Start: 12-23-2024 End: 12-23-2024 ambulatory LUCIANA ESCOTO Not Available Start: 12-22-2024 End: 12-22-2024 Orders Only Rodrick Richardson DO Work Phone: [facility] Internal Medicine - Family Medicine Comment on above: Hypoglycemia (Primar y Dx) Start: 12-20-2024 End: 12-20-2024 Orders Only Rodrick Richardson DO Work Phone: [facility] Internal Medicine - Family Medicine Comment on above: Hypoglycemia (Primar y Dx); Impaired fasting glucose Start: 12-18-2024 End: 12-19-2024 Refill Rodrick Richardson DO Work Phone: [facility] Comment on above: Insomnia, unspecifie d Start: 12-15-2024 End: 12-15-2024 ambulatory HIGH VIEW Irvin [facility] Start: 12-15-2024 End: 12-15-2024 Office outpatient visit 25 minutes Rodrick Richardson DO Work Phone: [facility] Internal Medicine - Family Medicine Comment on above: Hypotension due to h ypovolemia (Primary Dx); Asthma, unspecified asthma severity, unspecified whether complicated, unspecified whether persistent; Polyp of sigmoid colon, unspecified type; Essential hypertension; Obstructive sleep apnea syndrome; Anemia, unspecified type; Right chronic serous otitis media Start: 12-15-2024 End: 12-15-2024 ambulatory [facility] Start: 12-14-2024 End: 12-14-2024 Telephone encounter Pretty Watson C[facility] Family [facility] Start: 12-07-2024 End: 12-07-2024 Refill Rodrick Richardson DO Work Phone: [facility] Comment on above: Gastro-esophageal re flux disease without esophagitis; Other specified depressive episodes Start: 12-01-2024 End: 12-12-2024 Telephone encounter Dayanara Fernandes RN [facility] Internal [facility] Medicine Comment on above: Transition Of Care Start: 11-30-2024 End: 12-01-2024 Telephone encounter Pretty Watson MECHANICAL REPAIR WORKER [facility] Internal [facility] Start: 11-28-2024 End: 11-29-2024 ambulatory RODRICKCASSI RICHARDSON [facility] Start: 10-10-2024 End: 10-10-2024 Refill Elizabeth Riggins [facility] Internal Medicine [facility] Medicine Comment on above: Hyperlipidemia, unsp ecified Start: 10-05-2024 End: 10-07-2024 Refill Delta Ortiz MD Work Phone: [facility] Start: 09-21-2024 End: 09-21-2024 Refill Rodrick Richardson DO Work Phone: [facility] Medicine Comment on above: Insomnia, unspecifie d Start: 09-21-2024 End: 09-21-2024 Telephone encounter Rodrick Bryan Angelocruz DO Work Phone: [facility] Physicians Internal Medicine [facility] Start: 09-16-2024 End: 09-18-2024 [facility] Start: 09-16-2024 End: 09-18-2024 Subsequent hospital visit by physician Yon Lira DO Work Phone: [facility] CT Scan Comment on above: Cervical spondylosis with radiculopathy; 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 Start: 09-09-2024 End: 09-09-2024 Refill Rodrick Irvin Stephenscruz DO Work Phone: [facility] Family Medicine Comment on above: Urticaria, unspecifi ed; Other specified depressive episodes; Gastro-esophageal reflux disease without esophagitis; Essential (primary) hypertension Start: 09-09-2024 End: 09-21-2024 Telephone encounter Rodrick Richardson DO Work Phone: [facility] Internal Medicine - Family Medicine Start: 06-06-2024 End: 06-06-2024 ambulatory [facility] Work Phone: Start: 06-06-2024 End: 06-06-2024 Patient encounter procedure [facility] Work Phone: Start: 06-06-2024 End: 06-06-2024 ambulatory Karissa Ritchie MD Facility:[facility] Start: 05-23-2024 End: 05-23-2024 ambulatory Karissa Ritchie MD Facility:[facility] Start: 05-18-2024 End: 05-18-2024 ambulatory SUZANNE [facility] Start: 05-17-2024 End: 05-17-2024 Patient encounter procedure [facility] Pre-Admission Testing 2 [facility] - Pre Admit Comment on above: Preop examination (P rimary Dx); Hypertension, unspecified type; PONCHO (obstructive sleep apnea) Start: 05-17-2024 End: 05-17-2024 Preprocedural examination done [facility] 2 [facility] Start: 05-17-2024 End: 05-17-2024 ambulatory DELTA REN [facility] Start: 05-17-2024 Encounter for other preprocedural examination [facility] Start: 04-19-2024 End: 04-19-2024 ambulatory RODRICK Irvin [facility] Start: 04-10-2024 End: 04-10-2024 Refill Delta Ortiz MD Work Phone: [facility] Start: 03-26-2024 End: 03-26-2024 Refill Rodrick Richardson DO Work Phone: [facility] Internal Medicine - Family Medicine Comment on above: Insomnia, unspecifie d Start: 03-24-2024 End: 03-24-2024 ambulatory HIGH VIEW Irvin [facility] Start: 03-24-2024 End: 03-24-2024 Office outpatient visit 15 minutes Rodrick Richardson DO Work Phone: [facility] Internal Medicine - Family Medicine Comment on above: Hot flashes (Primary Dx); Hyperglycemia; Class 1 obesity due to excess calories with serious comorbidity and body mass index (BMI) of 30.0 to 30.9 in adult; Mixed hyperlipidemia; Right carpal tunnel syndrome Start: 03-15-2024 End: 03-15-2024 Refill Rodrick Richardson DO Work Phone: [facility] Internal Medicine - Family Medicine Comment on above: Essential (primary) hypertension Start: 03-14-2024 End: 03-14-2024 Refill Dino MECHANICAL REPAIR WORKER [facility] Internal Medicine - Family Medicine Comment on above: Urticaria, unspecifi ed; Other specified depressive episodes Gastro-esophageal re flux disease without esophagitis Start: 03-08-2024 End: 03-08-2024 Office outpatient visit 25 minutes Suzanne Nguyen MD Work Phone: [facility] Comment on above: Lower urinary tract symptoms (Primary Dx); Peyronie's disease Start: 03-08-2024 End: 03-08-2024 ambulatory SUZANNE NGUYEN [facility] Start: 03-08-2024 End: 03-08-2024 Telephone encounter Suzanne Nguyen MD Work Phone: [facility] Start: 03-08-2024 End: 03-08-2024 ambulatory RODRICK Irvin [facility] Start: 02-25-2024 End: 02-25-2024 Orders Only Rodrick Richardson DO Work Phone: [facility] Internal Medicine - Family Medicine Comment on above: Mass of upper outer quadrant of left breast (Primary Dx) Start: 02-15-2024 End: 02-15-2024 ambulatory Karissa Ritchie MD Facility: [facility] Start: 02-09-2024 End: 02-09-2024 ambulatory [facility] Start: 02-09-2024 End: 02-09-2024 ambulatory HIGH VIEW Irvin [facility] Start: 02-09-2024 End: 02-09-2024 Office outpatient visit 25 minutes Rodrick Chong DO Work Phone: [facility] Medicine [...] 01-27-2024 End: 02-09-2024 Telephone encounter Pretty Watson [facility] Internal Medicine - Family Medicine Start: 01-01-2024 End: 01-04-2024 Telephone encounter Imani Bryan [facility] Internal Medicine - Family Medicine Comment on above: Appointment Due Start: 12-18-2023 End: 12-21-2023 Refill Estela Espinoza FRENCH DRAWER-SALES ATTENDANT Work Phone: [facility] Internal Medicine - Family Medicine Comment on above: Insomnia, unspecifie d Start: 12-01-2023 Refill Estela Espinoza FRENCH DRAWER-SALES ATTENDANT Work Phone: [facility] Internal Medicine - Family Medicine Comment on above: Hyperlipidemia, unsp ecified Start: 10-30-2023 Refill Delta Harrison Work Phone: [facility] Start: 10-03-2023 End: 10-05-2023 [facility] Start: 10-01-2023 Orders Only Estela Ramirezrosio FRENCH DRAWER-SALES ATTENDANT Work Phone: [facility] Start: 10-01-2023 Refill Rodrick Chong DO Work Phone: [facility] Internal Medicine - Family Medicine Comment on above: Insomnia, unspecifie d Start: 09-30-2023 End: 10-01-2023 ambulatory RODRICK RICHARDSON [facility] Start: 09-28-2023 Refill Estela Espinoza FRENCH DRAWER-SALES ATTENDANT Work Phone: [facility] - Family Medicine [...] Facility:[facility] Start: 10-30-2021 End: 10-31-2021 ambulatory RODRICK RICHARDSON Facility:[facility] Procedures Date Procedure Procedure Detail Performing Clinician Start: 02-06-2025 Adult depression screening assessment Rodrick Richardson DO Work Phone: Start: 01-30-2025 Gluc bld gluc mntr d ev cleared fda spec home use Luciana Escoto MD Work Phone: Start: 12-23-2024 Gluc bld gluc mntr d ev cleared fda spec home use Luciana Escoto MD Work Phone: Start: 12-15-2024 Adult depression screening assessment Rodrick Richardson DO Work Phone: Start: 03-24-2024 Adult depression screening assessment Rodrick Richardson DO Work Phone: Start: 03-08-2024 Follow-up visit Follow-up SUZANNE NGUYEN Start: 02-09-2024 Adult depression screening assessment Pretty Watson CMA Start: 05-25-2023 Adult depression screening assessment Estela Espinoza FRENCH DRAWER-SALES ATTENDANT Work Phone: Plan of Treatment Date Care Activity Detail Author Start: 02-06-2026 Adult BMI Screening Adult BMI Screening [facility] Start: 02-06-2026 Depression Screening Depression Screening [facility] Start: 02-06-2026 Tobacco Screening Tobacco Screening [facility] Start: 12-15-2025 Adult BMI Screening Adult BMI Screening [facility] Start: 12-15-2025 Depression Screening Depression Screening [facility] Start: 12-15-2025 Tobacco Screening Tobacco Screening [facility] Start: 11-29-2025 Adult BMI Screening Adult BMI Screening [facility] Start: 11-29-2025 DTaP,Tdap and Td Vaccines (2 - Td or Tdap) DTaP,Tdap and Td Vaccines (2 - Td or Tdap) [facility] Start: 11-29-2025 DTaP/Tdap/Td vaccine (2 - Td or Tdap) DTaP/Tdap/Td vaccine (2 - Td or Tdap) [facility] Start: 11-29-2025 Tobacco Screening Tobacco Screening [facility] Start: 05-17-2025 Adult BMI Screening Adult BMI Screening [facility] Start: 05-17-2025 Tobacco Screening Tobacco Screening [facility] Start: 05-09-2025 End: 05-09-2025 Patient encounter procedure 05/09/2025 1:30 PM EDT [facility] - Family Medicine [address] [place] [address] Rodrick Richardson DO [address] [place] [address] [facility] - Family Medicine Start: 05-01-2025 Influenza vaccination [facility] Start: 04-26-2025 End: 04-26-2025 Patient encounter procedure 04/26/2025 9:15 AM EDT Office Visit [facility] Pul[facility]Sleep [facility] [address] [place] [phone] Nori Mccoy, FRENCH DRAWER-RISK ASSESSOR [address] [facility], [address] [place] [address] [facility] Start: 03-24-2025 Adult BMI Screening Adult BMI Screening [facility] Start: 03-24-2025 Depression Screening Depression Screening [facility] Start: 03-24-2025 Tobacco Screening Tobacco Screening [facility] Start: 03-08-2025 Adult BMI Screening Adult BMI Screening [facility] Start: 03-08-2025 Tobacco Screening Tobacco Screening [facility] Start: 02-24-2025 End: 02-24-2025 Patient encounter procedure [facility] Cardi[facility] Start: 02-09-2025 End: 02-09-2025 Patient encounter procedure 02/09/2025 1:30 PM EDT Office Visit [facility] [address] [place] [phone] Benoit Sinha MD [address] [place] [address] [facility] Start: 02-08-2025 Adult BMI Screening Adult BMI Screening [facility] Start: 02-08-2025 Depression Screening Depression Screening [facility] Start: 02-08-2025 Tobacco Screening Tobacco Screening [facility] Start: 02-06-2025 End: 02-06-2025 Patient encounter procedure 02/06/2025 11:15 AM EDT Office Visit [facility] Internal Medicine - Family Medicine [address] [place] [address] Rodrick Richardson, DO [address], [place] [address] [facility] Internal Medicine - Family Medicine Start: 01-30-2025 End: 01-30-2025 [facility] Comment on above: Hypoglycemia Start: 01-30-2025 End: 01-30-2025 Patient encounter procedure 01/30/2025 10:15 AM EDT Appointment [facility] Cardiovascular [address] [place] [address] Rodrick Richardson, DO [address] [facility], [place] [address] [facility] Cardiovascular Start: 01-17-2025 End: 01-17-2025 Patient encounter procedure [facility] Comment on above: Arrived Start: 01-10-2025 End: 01-10-2025 Patient encounter procedure 01/10/2025 2:30 PM EDT Office Visit [facility] [address] [place] [address] Luciana Escoto MD [address] [place] [address] [facility] Start: 12-27-2024 End: 12-27-2024 Patient encounter procedure 12/27/2024 11:30 AM EDT Office Visit [facility] [address] [facility] [address] [place] [address] Susan Abernathy MD [address] [facility] [address] [place] [address] [facility] Start: 12-23-2024 End: 12-23-2025 Basic metabolic 1998 panel - Serum or Plasma Basic metabolic panel Lab Routine Hypoglycemia Expected: 12/23/2024 (Approximate), Expires: 12/23/2025 [facility] Comment on above: Expected: 12/23/2024 (Approximate), Expi res: 12/23/2025 Start: 12-23-2024 End: 12-23-2025 C peptide [Mass/volume] in Serum or Plasma --fasting C PEPTIDE FASTING Lab Routine Hypoglycemia Expected: 12/23/2024 (Approximate), Expires: 12/23/2025 [facility] Work Phone: Comment on above: Expected: 12/23/2024 (Approximate), Expi res: 12/23/2025 Start: 12-23-2024 End: 12-23-2025 Hepatic function 2000 panel - Serum or Plasma Hepatic function panel Lab Routine Hypoglycemia Expected: 12/23/2024 (Approximate), Expires: 12/23/2025 [facility] Comment on above: Expected: 12/23/2024 (Approximate), Expi res: 12/23/2025 Start: 12-23-2024 End: 12-23-2025 Insulin-like growth factor 2 Insulin-like growth factor 2 Lab Routine Hypoglycemia Expected: 12/23/2024 (Approximate), Expires: 12/23/2025 [facility] Comment on above: Expected: 12/23/2024 (Approximate), Expi res: 12/23/2025 Start: 12-23-2024 End: 12-23-2025 Proinsulin Proinsulin Lab Routine Hypoglycemia Expected: 12/23/2024 (Approximate), Expires: 12/23/2025 [facility] Comment on above: Expected: 12/23/2024 (Approximate), Expi res: 12/23/2025 Start: 12-23-2024 End: 12-23-2024 Patient encounter procedure 12/23/2024 9:20 AM EDT Office Visit [facility] [address] [place] [address] Luciana Escoto MD [address] [place] [address] Arrived [facility] Comment on above: Arrived Start: 12-20-2024 End: 12-20-2024 Patient encounter procedure 12/20/2024 11:30 AM EDT Appointment [facility] - Pulmonary Function [address] [facility] [place] [address] Rodrick Richardson, DO [address], [facility] [place] [place] [address] [facility] - Pulmonary Function Start: 12-15-2024 End: 12-15-2024 Patient encounter procedure 12/15/2024 1:00 PM EDT [facility] [address] [place] [address] Rodrick Richardson, DO [address], [facility] [place] [address] [facility] Internal Medicine - Family Medicine Start: 11-28-2024 End: 11-28-2024 Patient encounter procedure 11/28/2024 2:00 PM EDT Office Visit [facility] [address] [facility] [address], [address] [place] [phone] Yon Lira DO [address] [facility] [address] [place] [phone] Still dont have the cervical xrays from [facility] Comment on above: Still dont have the cervical xrays from [facility] Start: 09-25-2024 Tobacco Counseling Tobacco Counseling [facility] Start: 08-31-2024 Annual Wellness Visit (Medicare Advantage) Annual Wellness Visit (Medicare Advantage) [facility] Start: 07-15-2024 Adult BMI Screening Adult BMI Screening [facility] Start: 07-15-2024 Tobacco Screening Tobacco Screening [facility] Start: 05-31-2024 End: 05-31-2024 Admission to same day surgery center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 Diabetes and Follow-up (LAB) HPI: 01/2025 History of Present Illness The patient is here for a follow-up of hypoglycemia. Results Laboratory Studies C-peptide 3.6 (range 1.1-4.4), pro insulin 4.7 (normal less than 7.2), blood sugar 92, liver enzyme within normal limits, IGF-2 94 (range 33-96.7). 11/2024 History of Present Illness The patient is a 49-year-old male who presents for evaluation of hypoglycemia. He was referred by Dr. Rodrick Richardson for low blood sugar, which has returned to an average level. His glucose log showed readings ranging from 46 to 137. He has no history of diabetes medication use. His kidney function is currently normal, although he had an episode of acute kidney injury in the past. He reports no history of hepatic complications. A review of his medications revealed no drugs that could potentially induce hypoglycemia. The patient is here for a follow-up of hypoglycemia. SUBJECTIVE: MEDICATIONS: Current Outpatient Medications Medication Instructions albuterol (2.5 MG/3ML) 0.083% nebulizer solution albuterol HFA 90 mcg/act inhaler 2 puffs, Every 6 hours PRN atorvastatin (Lipitor) 10 MG tablet baclofen (Lioresal) 10 MG tablet calcium citrate (CALCITRATE) 1,900 mg, 3 times daily cetirizine (ZYRTEC) 10 mg, Daily RT cholecalciferol (Vitamin D-3) 50 MCG (2000 UT) tablet Daily diazePAM (Valium) 10 MG tablet TAKE 1 TABLET BY MOUTH PRIOR TO PROCEDURE Docusate Sodium (DSS) 100 MG capsule 1 capsule, Daily hydrOXYzine HCl (Atarax) 10 MG tablet meclizine (ANTIVERT) 12.5 mg, 3 times daily PRN mirtazapine (REMERON) 15 mg, Every morning omeprazole (PriLOSEC) [address] capsule TAKE 1 CAPSULE BY MOUTH EVERY DAY IN THE MORNING BEFORE BREAKFAST oxyCODONE-acetaminophen (Percocet) 5-325 MG tablet 1 tablet, 3 times daily PRN pregabalin (LYRICA) 50 mg, 2 times daily traZODone (Desyrel) 50 MG tablet Every 24 hours venlafaxine XR (EFFEXOR XR) 150 mg, Daily RT ALLERGIES: Allergies Allergen Reactions Prednisone Hives, Other, Shortness of breath, Swelling, Palpitations and Unknown All related Jittery -mainly with IV doses, heart rate goes up with oral. prednisone [place] Oil Diarrhea and Nausea And Vomiting Other Reaction(s): Other: See Comments Other reaction(s): Other: See Comments Ibuprofen Other Reaction(s): GI Disturbance, GI Upset, Other (See Comments), Unknown, vomiting Other reaction(s): GI Disturbance Penicillins Hives and Rash Past Medical History: Diagnosis Date Anemia, unspecified Asthma, unspecified asthma severity, unspecified whether complicated, unspecified whether persistent ([facility]) Ear problems Essential hypertension ([facility]) Hypotension due to hypovolemia Obstructive sleep apnea syndrome Right chronic serous otitis media Sinusitis Past Surgical History: Procedure Laterality Date KNEE SURGERY SHOULDER ARTHROSCOPY 3 times TYMPANOSTOMY TUBE PLACEMENT VASECTOMY REVIEW OF SYMPTOMS: 14 POINT OF SYSTEM REVIEWED AND NEGATIVE OBJECTIVE: Constitutional: Afebrile @ home; no weakness or night sweats SKIN: No change in skin color; no itching, rash or lesions; no hair loss; HEENT: No HAs or injury; no dizziness; No difficulty with vision; no eye pain, discharge or lesions; no hearing loss or difficulty; no nasal discharge, NECK: No pain, limitation of motion, lumps or swollen glands RESP: No cough, wheezing or difficulty breathing. No CP with breathing; CARDIO: No CP , SOB or fatigue, No edema, palpitations or dyspnea with exertion GI: No N/V/D or abd. pain; good appetite with no recent change. No heart burn, liver or gallbladder disease; no rectal bleeding or pain : No urinary pain , frequency or odor. MUSCULOSKELETAL: No muscle pain or cramps; no extremity weakness.No joint pain, stiffness, swelling or limitation of movement NEUROLOGY: No H/O seizures, stroke or fainting. No weakness, tremors. Hematology: No bleeding problems or excessive bruising ENDOCRINE: No increase in hunger, thirst or urination; admits compliance to medical management plan Feet: numbness tingling , ulcers or skin break No results found for: HGBA1C Lab Results Component Value Date GLU 143 01/30/2025 GLU 99 12/24/2024 GLU 158 12/23/2024 02/29/2020 12:00 PM 05/16/2020 12:00 PM 05/30/2020 12:00 PM 12/15/2024 11:04 AM 12/23/2024 9:21 AM 12/27/2024 11:32 AM 01/17/2025 11:19 AM Vitals BMI 30.27 kg/m2 30.27 kg/m2 30.12 kg/m2 31.18 kg/m2 31.93 kg/m2 32.11 kg/m2 32.11 kg/m2 BSA (m2) 2.1 m2 2.1 m2 2.1 m2 2.11 m2 2.14 m2 2.1 m2 2.1 m2 Systolic 117 110 124 110 110 102 123 Diastolic 84 79 90 80 70 67 84 Heart Rate 98 96 102 85 SpO2 98 % 98 % Temp 98 F Resp 16 Height (in) 5' 8.5 5' 8.5 5' 8.5 5' 7.99 5' 8 5' 7 5' 7 Weight (lb) 202 202 201 205 210 205 205 Visit Report Report Report Report ASSESSMENT AND PLAN: Assessment/Plan Diagnoses and all orders for this visit: Hypoglycemia - POCT glucose manually resulted Assessment & Plan 1. Hypoglycemia. Recent blood work shows C-peptide at 3.6 (1.1-4.4), pro-insulin at 4.7 (normal or less than 7.2), blood sugar at 92, and liver enzymes within normal limits. IGF-2 945 ([id number]). These results do not indicate hyperinsulinemia or an insulinoma. He is advised to consume small, frequent meals and snacks to manage symptoms of dizziness. He should keep glucose tablets on hand to raise blood sugar levels when necessary. Follow up prn documented in this encounter [facility] 01-17-2025 History of Presen t illness Narrative Images from the original note were not included. Subjective Patient ID: Avel Funes is a 49 y.o. male who presents for Ear Problem (3 week check ears ) Pt states HL resolved. No family history on file. Active Ambulatory Problems Diagnosis Date Noted Screening for diabetes mellitus 12/23/2024 TIMOTHY (acute kidney injury) ([facility]) 11/28/2024 Anxiety 12/23/2024 Cervical radiculopathy 03/06/2017 Chronic anxiety 07/01/2022 Chondromalacia of patella 07/03/2016 Class 1 obesity due to excess calories with serious comorbidity and body mass index (BMI) of 30.0 to 30.9 in adult 02/09/2024 Contusion of knee 11/11/2017 Depressive disorder ([facility]) 10/02/2017 Dizziness 12/23/2024 Dysfunction of right eustachian tube 12/23/2024 Electrocardiogram abnormal 07/01/2022 Dysphagia 02/25/2019 Epididymitis 07/18/2019 Esophagitis 03/02/2019 Essential hypertension ([facility]) 11/16/2018 Fibromyalgia 08/12/2016 Hypotension due to hypovolemia 11/29/2024 Impingement syndrome of shoulder region 08/07/2016 Knee joint effusion 11/11/2017 Low vitamin D level 02/23/2020 Lower urinary tract symptoms 05/06/2023 Mixed hyperlipidemia ([facility]) 08/28/2020 Non-suppurative otitis media 12/23/2024 Obstructive sleep [...] severity, unspecified whether complicated, unspecified whether persistent ([facility] [place]) Ear problems Right chronic serous otitis media Sinusitis Past Surgical History: Procedure Laterality Date KNEE SURGERY SHOULDER ARTHROSCOPY 3 times TYMPANOSTOMY TUBE PLACEMENT VASECTOMY Allergies Allergen Reactions Prednisone Hives, Other, Shortness of breath, Swelling, Palpitations and Unknown All related Jittery -mainly with IV doses, heart rate goes up with oral. prednisone [place] Oil Diarrhea and Nausea And Vomiting Other [...] Tube pulled out a bit. Patient ID: Avel Funes is a 49 y.o. male. Procedures Foreign [...] if doing well documented in this encounter [facility] 01-13-2025 Miscellaneous Notes Patient's called and he is still having SOB and chest tightness when exerting himself . Sometimes has SOB while resting. Where do you want to go from here with the patient? He probably should have an EKG and a stress test Left message and asked to call back on where he would like to have these done at? documented in this encounter [facility] 01-13-2025 Telephone encounter Note Patient's called and he is still having SOB and chest tightness when exerting himself . Sometimes has SOB while resting. Where do you want to go from here with the patient? [facility] 01-13-2025 Telephone encounter Note He probably should have an EKG and a stress test [facility] 01-13-2025 Telephone encounter Note Left message and asked to call back on where he would like to have these done at? [facility] 12-27-2024 History of Presen t illness Narrative Subjective Patient ID: Avel Funes is a 49 y.o. male who presents for Sinusitis Pt reports a 12-18 mo h/o RT otorrhea. Tx with oral abx a couple times. Raymond t-tubes 03/2020. Lost to F/U after 1st post op visit. Pt has been having periods of hypotension and dizziness with vertigo. Lisinopril stopped. Review of Systems All other systems reviewed and are negative. No family history on file. Active Ambulatory Problems Diagnosis Date Noted Screening for diabetes mellitus 12/23/2024 TIMOTHY (acute kidney injury) ([facility]) 11/28/2024 Anxiety 12/23/2024 Cervical radiculopathy 03/06/2017 Chronic anxiety 07/01/2022 Chondromalacia of patella 07/03/2016 Class 1 obesity due to excess calories with serious comorbidity and body mass index (BMI) of 30.0 to 30.9 in adult 02/09/2024 Contusion of knee 11/11/2017 Depressive disorder ([facility]) 10/02/2017 Dizziness 12/23/2024 Dysfunction of right eustachian tube 12/23/2024 Electrocardiogram abnormal 07/01/2022 Dysphagia 02/25/2019 Epididymitis 07/18/2019 Esophagitis 03/02/2019 Essential hypertension ([facility]) 11/16/2018 Fibromyalgia 08/12/2016 Hypotension due to hypovolemia 11/29/2024 Impingement syndrome of shoulder region 08/07/2016 Knee joint effusion 11/11/2017 Low vitamin D level 02/23/2020 Lower urinary tract symptoms 05/06/2023 Mixed hyperlipidemia ([facility]) 08/28/2020 Non-suppurative otitis media 12/23/2024 Obstructive sleep [...] Diagnosis Date Noted No Resolved Ambulatory Problems No Additional Past Medical History No past surgical history on file. Allergies Allergen Reactions Prednisone Hives, Other, Shortness of breath, Swelling, Palpitations and Unknown All related Jittery -mainly with IV doses, heart rate goes up with oral. prednisone [place] Oil Diarrhea and Nausea And Vomiting Other [...] prior to visit. Objective Last Recorded Vitals There were no vitals filed for this visit. ENT Physical Exam Constitutional Appearance: patient appears well-developed and well-nourished, Head and Face Appearance: head appears normal and face appears atraumatic; Ear Ear Canals: right ear canal normal; left ear canal normal; Tympanic Membranes: left tympanic membrane normal; Ear comments: RT - large ant TM polyp with part of tube visible mediallt Nose External Nose: nares patent bilaterally; external nose normal; Internal Nose: nasal mucosa normal; Oral Cavity/Oropharynx Lips: normal; Teeth: normal; Gums: gingiva normal; Tongue: normal; Oral mucosa: normal; Hard palate: normal; Neck Neck: neck normal; neck palpation normal; Thyroid: thyroid normal; Respiratory Inspection: breathing unlabored; normal breathing rate; Auscultation: breath sounds are clear; Cardiovascular Inspection: extremities are warm and well perfused; no peripheral edema present; Auscultation: regular rate and rhythm; Assessment/Plan Diagnoses and all orders for this visit: ETD (Eustachian tube dysfunction), bilateral Chronic myringitis of right ear - ciprofloxacin-dexAMETHasone (CiproDEX) otic suspension; Administer 4 drops into the right ear in the morning and 4 drops before bedtime. Do all this for 10 days. Otorrhea likely due to myringitis. Tx with ciprodex. Tube may need to be removed. documented in this encounter [facility] 12-23-2024 History of Presen t illness Narrative Avel Funes is a 49 y.o. male Luciana Escoto MD presents with chief complaint of Diabetes HPI: History of Present Illness The patient is a 49-year-old male who presents for evaluation of hypoglycemia. He was referred by Dr. Rodrick Richardson for low blood sugar, which has returned to an average level. His glucose log showed readings ranging from 46 to 137. He has no history of diabetes medication use. His kidney function is currently normal, although he had an episode of acute kidney injury in the past. He reports no history of hepatic complications. A review of his medications revealed no drugs that could potentially induce hypoglycemia. SUBJECTIVE: MEDICATIONS: Current Outpatient Medications Medication Instructions albuterol (2.5 MG/3ML) 0.083% nebulizer solution albuterol HFA 90 mcg/act inhaler 2 puffs, Every 6 hours PRN atorvastatin (Lipitor) 10 MG tablet baclofen (Lioresal) 10 MG tablet calcium citrate (CALCITRATE) 1,900 mg, Oral, 3 times daily cetirizine (ZYRTEC) 10 mg, Oral, Daily RT cholecalciferol (Vitamin D-3) 50 MCG (2000 UT) tablet Oral, Daily diazePAM (Valium) 10 MG tablet TAKE 1 TABLET BY MOUTH PRIOR TO PROCEDURE Docusate Sodium (DSS) 100 MG capsule 1 capsule, Oral, Daily hydrOXYzine HCl (Atarax) 10 MG tablet meclizine (ANTIVERT) 12.5 mg, 3 times daily PRN mirtazapine (REMERON) 15 mg, Every morning omeprazole (PriLOSEC) [address] capsule TAKE 1 CAPSULE BY MOUTH EVERY DAY IN THE MORNING BEFORE BREAKFAST oxyCODONE-acetaminophen (Percocet) 5-325 MG tablet 1 tablet, Oral, 3 times daily PRN pregabalin (LYRICA) 50 mg, Oral, 2 times daily traZODone (Desyrel) 50 MG tablet Every 24 hours venlafaxine XR (EFFEXOR XR) 150 mg, Daily RT ALLERGIES: Allergies Allergen Reactions Prednisone Hives, Other, Shortness of breath, Swelling, Palpitations and Unknown All related Jittery -mainly with IV doses, heart rate goes up with oral. prednisone Penicillins Hives and Rash No past medical history on file. No past surgical history on file. REVIEW OF SYMPTOMS: 14 POINT OF SYSTEM REVIEWED AND NEGATIVE OBJECTIVE: Constitutional: Afebrile @ home; no weakness or night sweats SKIN: No change in skin color; no itching, rash or lesions; no hair loss; HEENT: No HAs or injury; no dizziness; No difficulty with vision; no eye pain, discharge or lesions; no hearing loss or difficulty; no nasal discharge, NECK: No pain, limitation of motion, lumps or swollen glands RESP: No cough, wheezing or difficulty breathing. No CP with breathing; CARDIO: No CP , SOB or fatigue, No edema, palpitations or dyspnea with exertion GI: No N/V/D or abd. pain; good appetite with no recent change. No heart burn, liver or gallbladder disease; no rectal bleeding or pain : No urinary pain , frequency or odor. MUSCULOSKELETAL: No muscle pain or cramps; no extremity weakness.No joint pain, stiffness, swelling or limitation of movement NEUROLOGY: No H/O seizures, stroke or fainting. No weakness, tremors. Hematology: No bleeding problems or excessive bruising ENDOCRINE: No increase in hunger, thirst or urination; admits compliance to medical management plan Feet: numbness tingling , ulcers or skin break No results found for: HGBA1C Lab Results Component Value Date GLU 158 12/23/2024 GLU 114 (H) 12/15/2024 GLU 106 (H) 11/29/2024 Visit Vitals BP 110/70 Pulse 96 Resp 16 Ht 5' 8 Wt 210 lb SpO2 98% BMI 31.93 kg/m Smoking Status Never BSA 2.14 m ASSESSMENT AND PLAN: Assessment/Plan Assessment & Plan 1. Hypoglycemia. He was referred by Dr. Rodrick Blevins for low blood sugar levels, which have been averaging between 46 and 137. He is not on any medications that could cause low blood sugar. His kidney function is normal, although he had an acute kidney injury in the past. To rule out secondary causes of hypoglycemia, liver enzymes, C-peptide, and proinsulin will be checked. This will help determine if hyperinsulinemia is present, which I doubt due to mildly elevated insulin levels. Follow-up The patient will follow up in 2 to 3 weeks. documented in this encounter [facility] 12-15-2024 History of Presen t illness Narrative Subjective Patient ID: vAel Funes is a 49 y.o. male. Adan presents for hospital follow up. He was admitted overnight because his blood pressure was low. He was dizzy. They did stop his lisinopril. He gets dizzy at times. Spinning or feels like he is on a boat. His right ear drains. He had it to placed in his right ear over 10 years ago. He has not seen the ear nose and throat doctor since then. He needs a new referral to go back to him. He is due for a colonoscopy again. He has a history of colon polyps. He would like a referral for that. He was anemic finished on the labs done in the hospital. He gets short of breath almost every day. He is using the albuterol inhaler with benefit. He needs a refill. Follow-up The following portions of the patient's history were reviewed and updated as appropriate: allergies, current medications, past family history, past medical history, past social history, past surgical history, problem list, and medication reconciliation was completed including current medication and post discharge medication. Review of Systems Objective Physical Exam Vitals reviewed. Exam conducted with a gallery director present (). Constitutional: General: He is not in acute distress. Appearance: He is not ill-appearing. HENT: Head: Normocephalic. Right Ear: Decreased hearing noted. Drainage present. No swelling or tenderness. A middle ear effusion is present. There is no impacted cerumen. A PE tube is present. Left Ear: No decreased hearing noted. No laceration or drainage. No middle ear effusion. There is no impacted cerumen. Ears: Mercer exam findings: Lateralizes left. Right Rinne: AC > BC. Left Rinne: AC > BC. Nose: Nose normal. Cardiovascular: Rate and Rhythm: Normal rate and regular rhythm. Pulses: Normal pulses. Heart sounds: Normal heart sounds. No murmur heard. Pulmonary: Effort: Pulmonary effort is normal. No respiratory distress. Breath sounds: Normal breath sounds. No wheezing, rhonchi or rales. Neurological: Mental Status: He is alert. Psychiatric: Mood and Affect: Mood normal. Behavior: Behavior normal. Thought Content: Thought content normal. Judgment: Judgment normal. Assessment/Plan Avel was seen today for follow-up. Diagnoses and all orders for this visit: Hypotension due to hypovolemia - Comprehensive metabolic panel; Future Stay off lisinopril. BP stable now. Drink plenty of fluids. Check CMP Asthma, unspecified asthma severity, unspecified whether complicated, unspecified whether persistent - albuterol (PROVENTIL HFA;VENTOLIN HFA) 90 mcg/actuation inhaler; Inhale 2 puffs every 6 (six) hours as needed for wheezing. - Pulmonary function test Complete PFT w/ BD (Spirometry (Flow Volume Loop) pre/post short acting bronchodilator w/ DLCO (diffusion study) and Lung Volume); Future - albuterol (PROVENTIL,VENTOLIN) nebulizer solution 2.5 mg Check PFTs. Renew proventil HFA. Consider Airsupra. Polyp of sigmoid colon, unspecified type - Colonoscopy; Future Check colonoscopy to check for colon cancer. Essential hypertension - Comprehensive metabolic panel; Future BP at goal. Check CMP Obstructive sleep apnea syndrome Encouraged to use CPAP. Risks discussed such as sudden , DC, CVA, chronic fatigue Anemia, unspecified type - CBC auto differential; Future Check CBC and colonoscopy. May need further evaluation Right chronic serous otitis media - Ambulatory referral to ENT (Non[facility]); Future Refer back to ENT. Mercer test may be misleading. documented in this encounter [facility] 12-14-2024 Miscellaneous Notes Patient called and stated that patient has congestion and is in his chest and is SOB. He has a history of Bronchitis. She wanted to know since he is coming in tomorrow [facility] I should see him 1st to see if he needs a chest x-ray. He is getting a lot of radiation with other testing. Not every bronchitis and chest congestion requires an x-ray Notified documented in this encounter [facility] 12-14-2024 Telephone encounter Note Patient called and stated that patient has congestion and is in his chest and is SOB. He has a history of Bronchitis. She wanted to know since he is coming in tomorrow will [facility] 12-14-2024 Telephone encounter Note I should see him 1st to see if he needs a chest x-ray. He is getting a lot of radiation with other testing. Not every bronchitis and chest congestion requires an x-ray [facility] 12-14-2024 Telephone encounter Note [facility] Miscellaneous Notes Transition of Care (*required) *Additional Questions/Concerns Requiring PCP Follow-Up: Patient is scheduled for a Hospital Discharge Follow Up appointment on 12/15/24. This is past the TCM window, but per notes, it appears this is the earliest appt available. Please advise: Patient is requesting a refill of Tamsulosin to [facility] please. Patient has not seen ENT in a few years and needs a new referral to return to their office. Patient is requesting a referral to Dr. Susan Abernathy. States he has had ear tubes and recurrent ear infections. Pending lab results: 11/28/24 Blood Cultures x2: NO GROWTH 2 DAYS P This documentation is being used for Transition of Care purposes: Yes Goal: Patient will demonstrate a safe transition from hospital to home. Diagnosis on Discharge: TIMOTHY Hypotension Discharge Specialty: Cardiac and Nephrology *Name of Discharging Facility: [facility] (admitted 11/28/24) Date of Facility Discharge: 11/29/24 Date of Interactive Contact and Name of Director Of National Sales: 12/01/24 at 9:48am Unable to reach, voice message left. 12/01/24 at 2:44pm Spoke with patient. *Medication Review Completed: Yes START taking: cefDINIR (OMNICEF) meclizine (ANTIVERT) STOP taking: lisinopril-hydroCHLOROthiazide 20-12.5 mg per tablet (PRINZIDE,ZESTORETIC) Medication Reconciliation Questions/Concerns: See above re: refill. *Follow Up Appointments with Providers: Primary: Rodrick Richardson DO 12/15/24 at 1:00pm Specialty: Specialty: Specialty: Review of Pending Lab/Diagnostic Tests and Plan for Completion: See pending labs above. Assessment and Support of Treatment Regimen Adherence and Medication Management: Lives with spouse. Independent with ADLs. Patient still reports episodes of lightheadedness, dizziness, and feeling fatigued and like rubber . Episodes are more common in the mornings and he does take Meclizine in the morning, which he feels does help. BP has been running 115/70-132/88, with HR 70-115. Denies headaches, vision changes, speech changes, or focal weakness. Notes he has had ear tubes in the past and still has frequent ear infections and he thought that was throwing his equilibrium off. He is on antibiotics which he feels is helping his current ear infection symptoms. Denies chest pain/palpitations. Occasionally feels SOB when walking, and a mild dry cough, but symptoms are very mild and only intermittent. No known fever/chills. This has been ongoing for the past several days, even when he was in the hospital. Denies leg swelling or calf pain. Eating/drinking without difficulty. Sweets make him feel better. No N/V/D. He is not diabetic, but has checked BS using an extra glucometer and test strips that his family member had. States BS was between 70-140 when checked. He believes he has had a couple episodes per month of low blood sugar in the night. He often feels better after eating something. Urinating/moving bowels without difficulty. Ambulating without difficulty. Education Provided by [facility] to Support Self-Management, Independent Living and ADLs: Reviewed discharge instructions per AVS. Reviewed signs and symptoms to monitor for and when to call provider/go to ED. Communication with Home Health Agencies and Other Services Utilized/Needed by the Patient: N/A. I can probably see him ThursdayDecember 07 at 1:00 p.m. Patient never called back documented in this encounter [facility] 12-01-2024 Telephone encounter Note Transition of Care (*required) *Additional Questions/Concerns Requiring PCP Follow-Up: Patient is scheduled for a Hospital Discharge Follow Up appointment on 12/15/24. This is past the TCM window, but per notes, it appears this is the earliest appt available. Please advise: Patient is requesting a refill of Tamsulosin to [facility] please. Patient has not seen ENT in a few years and needs a new referral to return to their office. Patient is requesting a referral to Dr. Susan Abernathy. States he has had ear tubes and recurrent ear infections. Pending lab results: 11/28/24 Blood Cultures x2: NO GROWTH 2 DAYS P This documentation is being used for Transition of Care purposes: Yes Goal: Patient will demonstrate a safe transition from hospital to home. Diagnosis on Discharge: TIMOTHY Hypotension Discharge Specialty: Cardiac and Nephrology *Name of Discharging Facility: [facility] (admitted 11/28/24) Date of Facility Discharge: 11/29/24 Date of Interactive Contact and Name of Director Of National Sales: 12/01/24 at 9:48am Unable to reach, voice message left. 12/01/24 at 2:44pm Spoke with patient. *Medication Review Completed: Yes START taking: cefDINIR (OMNICEF) meclizine (ANTIVERT) STOP taking: lisinopril-hydroCHLOROthiazide 20-12.5 mg per tablet (PRINZIDE,ZESTORETIC) Medication Reconciliation Questions/Concerns: See above re: refill. *Follow Up Appointments with Providers: Primary: Rodrick Richardson, DO 12/15/24 at 1:00pm Specialty: Specialty: Specialty: Review of Pending Lab/Diagnostic Tests and Plan for Completion: See pending labs above. Assessment and Support of Treatment Regimen Adherence and Medication Management: Lives with spouse. Independent with ADLs. Patient still reports episodes of lightheadedness, dizziness, and feeling fatigued and like rubber . Episodes are more common in the mornings and he does take Meclizine in the morning, which he feels does help. BP has been running 115/70-132/88, with HR 70-115. Denies headaches, vision changes, speech changes, or focal weakness. Notes he has had ear tubes in the past and still has frequent ear infections and he thought that was throwing his equilibrium off. He is on antibiotics which he feels is helping his current ear infection symptoms. Denies chest pain/palpitations. Occasionally feels SOB when walking, and a mild dry cough, but symptoms are very mild and only intermittent. No known fever/chills. This has been ongoing for the past several days, even when he was in the hospital. Denies leg swelling or calf pain. Eating/drinking without difficulty. Sweets make him feel better. No N/V/D. He is not diabetic, but has checked BS using an extra glucometer and test strips that his family member had. States BS was between 70-140 when checked. He believes he has had a couple episodes per month of low blood sugar in the night. He often feels better after eating something. Urinating/moving bowels without difficulty. Ambulating without difficulty. Education Provided by ACN to Support Self-Management, Independent Living and ADLs: Reviewed discharge instructions per AVS. Reviewed signs and symptoms to monitor for and when to call provider/go to ED. Communication with Home Health Agencies and Other Services Utilized/Needed by the Patient: N/A. [facility] 12-01-2024 Telephone encounter Note I can probably see him ThursdayDecember 07 at 1:00 p.m. [facility] 12-01-2024 Telephone encounter Note Patient never called back T [facility] 11-30-2024 Miscellaneous Notes Patient called and patient was seen at the er in [place] but his BP is still running 82/57, 98/68, 106/73. Do you think he needs to see you before apt on 12/15/24 and if so where would you like him scheduled at? Looks like he was dehydrated. He should drink plenty of fluids and try Gatorade. Not really much available before then as I am going out of town next week Spoke to Carolyne and they will continue with keeping him hydrated. documented in this encounter [facility] 11-30-2024 Telephone encounter Note Patient called and patient was seen at the er in [place] but his BP is still running 82/57, 98/68, 106/73. Do you think he needs to see you before apt on 12/15/24 and if so where would you like him scheduled at? [facility] 11-30-2024 Telephone encounter Note Looks like he was dehydrated. He should drink plenty of fluids and try Gatorade. Not really much available before then as I am going out of town next week [facility] 11-30-2024 Telephone encounter Note Spoke to Carolyne and they will continue with keeping him hydrated. [facility] 09-21-2024 Miscellaneous Notes He is due for a recheck possibly a wellness too Sent mychart msg 3rd reach out. Another message in chart documented in this encounter [facility] 09-21-2024 Telephone encounter Note He is due for a recheck possibly a wellness too [facility] 09-21-2024 Telephone encounter Note Sent mychart msg [facility] 09-21-2024 Telephone encounter Note 3rd reach out. Another message in chart [facility] 09-21-2024 Miscellaneous Notes Rx sent in. He is due for a recheck possibly a wellness too documented in this encounter [facility] 09-21-2024 Telephone encounter Note Rx sent in. He is due for a recheck possibly a wellness too [facility] 09-09-2024 Miscellaneous Notes is due for Medicare wellness anytime Sent mychart msg LM on VM 3rd ccontact documented in this encounter [facility] 09-09-2024 Telephone encounter Note is due for Medicare wellness [facility] Telephone encounter Note Sent mychart msg [facility] 09-09-2024 Telephone encounter Note LM on VM [facility] 09-09-2024 Telephone encounter Note 3rd [facility] Miscellaneous Notes Rx sent in. He is due for Medicare wellness anytime documented in this encounter [facility] 09-09-2024 Telephone encounter Note Rx sent in. He is due for Medicare wellness anytime [facility] 05-17-2024 Instructions Dayanara Broussard RN - 05/17/2024 9:00 AM EDT Preoperative Education Checklist- General Surgery date: 05/31/24 Surgery time: 10a Arrival time: 8a 1. Bring a photo ID and your insurance card with you the day of surgery. You will check in at the main lobby of the [facility]- registration desk is straight ahead as soon as you walk in. Tell them you are here for surgery. 2. If you have a Living Will/Durable Power of Product Marketing Consultant for Health Care that is not on [...] after you have bathed. 5. NO nail montserratian/acrylic on at least one finger. If you are having a hand, wrist or foot surgery then all nail montserratian and artificial/acrylic nails must be removed from [...] please call the Preadmission Testing office at [phone], Mon.-Fri. 7 a.m.-3 p.m. Leave a voicemail [...] prior to procedure documented in this encounter [facility] 03-24-2024 History of Presen t illness Narrative [...] bothered by it. documented in this encounter [facility] 03-08-2024 Miscellaneous Notes Please schedule for cysto with possible urethral dilation, mac, Gia Diagnosis lower urinary tract symptoms documented in this encounter [facility] 03-08-2024 Telephone encounter Note Please schedule for cysto with possible urethral dilation, mac, [place] Diagnosis lower urinary tract symptoms [facility] 03-08-2024 History of Presen t illness Narrative Images from the original note were not included. [address] [place] [address] [facility] [id number] Patient: Avel Funes Date of : 1975 [...] 09/28/2019 Performed by Freddie Bender DO at [facility] EGD N/A 03/02/2019 Performed by Freddie Bender DO at [facility] KNEE ARTHROSCOPY PALATE / UVULA BIOPSY / EXCISION uvula removed SHOULDER ARTHROSCOPY 1997 & 2016 VASECTOMY VASECTOMY Family History Problem Relation Age [...] or hospitalization) Allergies: Ibuprofen, Penicillins, Prednisone, and [place] Tobacco History: Social History Tobacco Use Smoking [...] understanding. documented in this encounter [facility] 02-09-2024 History of Presen t illness Narrative [...] by mouth nightly. documented in this encounter [facility] 01-27-2024 Miscellaneous Notes Patient needs a renewal for handicap placard I do not see where he had handicap parking placard in the past. Did you give him 1? Handicap Placard made today documented in this encounter [facility] 01-27-2024 Telephone encounter Note Patient needs a renewal for handicap placard [facility] 01-27-2024 Telephone encounter Note I do not see where he had handicap parking placard in the past. Did you give him 1? [facility] 01-27-2024 Telephone encounter Note Handicap Placard made today [facility] 01-01-2024 Miscellaneous Notes Care Coordination Outreach performed [...] appointment. Letter sent. documented in this encounter [facility] 01-01-2024 Telephone encounter Note Care Coordination Outreach performed to coordinate overdue appointments, testing, and/or follow-up care: Yes Audit/Outreach Date: January 01, 2024 Reason: Chronic Condition Appt Method: Telephone and MyChart Outreach Attempt: Second Outcome: Left Message and letter sent Next PCP Appointment: N/A Tests/Referrals Pended: N/A Resources/Education Provided: Additional Comments: Unable to reach patient by telephone to schedule appointment. Letter sent. [facility] 12-18-2023 Miscellaneous Notes Rx sent in. Patient is due for recheck of depression. He usually sees Estela documented in this encounter [facility] 12-18-2023 Telephone encounter Note Rx sent in. Patient is due for recheck of depression. He usually sees Estela [facility] 10-01-2023 History of Presen t illness Narrative The OARRS/MAPPS database was reviewed today and found to be appropriate. No indication of medication diversion, or non compliance. ROSEY Purdy 10/01/23 1443 documented in this encounter [facility] 12-04-2022 Note CONSULTATION CONSULTATION DATE: 12/04/2022 TO: [...] our patients to inform us about any oocv-sva-fcgazfm medications or herbal remedies/nutritional supplements/alternative remedies. 2. [...] options with their primary care provider. [facility] 10-27-2022 Note PROCEDURE: XR KNEE R T 4V or > HISTORY: Tear of medial meniscus of knee ; chronic right knee pain COMPARISON: None. FINDINGS: BONES:Elevated patella. No fracture, dislocation, bone lesion. No significant joint space narrowing. SOFT TISSUES:No visible soft tissue swelling. EFFUSION:None visible. OTHER: Negative. IMPRESSION: 1. Patella juan. Otherwise unremarkable right knee. Electronically authenticated by: GRETA LOCKHART Date: 2022-10-27 15:00 [facility] 09-10-2022 Note CONSULTATION PROCEDURE DATE: 09/10/2022 WBC [...] three months or sooner if needed. 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 [facility] codes for diagnosis M50.221, M50.222. PLAN: We will increase his Percocet for the winter months to 5/325 q.i.d. We will preauthorize for bilateral cervical trigger point injections to mitigate his cervical spams. Upon approval, the patient will be called to the office to receive those injections. The patient does agree with the plan of care. [facility] 04-03-2022 Note CONSULTATION CONSULTATION DATE: 04/03/2022 HISTORY OF PRESENT ILLNESS: This is a 46-year-old male who is being seen at our pain clinic for chronic neck pain and is a [facility] case. Patient did sustain a neck injury in 2014 due to a lifting incident. He was last seen on 12/26/2021 which, at that time, we were attempting to preauthorize for cervical medial branch blocks and a subsequent rhizotomy. That was declined by [facility] regardless of the pathology and [...] upper extremities. Blunted bilateral brachioradialis reflexes. IMPRESSION: [facility] codes M50.221, M50.222. PLAN: We will add diclofenac 75 mg b.i.d. to help control his inflammatory pain. Lyrica will be increased to 150 mg b.i.d. No changes in his Percocet dose at this time. Heat application was encouraged as well as adding magnesium and a multivitamin. At this time, we will attempt to medically manage him, pending any further [facility] approval to move forward with procedural interventions. Patient is in agreement with this plan. We will see him back in early May for follow up. 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 [facility] Insomnia, unspecified [facility] Diagnosis Hyperlipidemia, unspecified [facility] Diagnosis Essential hypertension- Primary Unspecified essential hypertension Mixed hyperlipidemia Mass of upper outer quadrant of left breast Depressive disorder Depressive disorder, not elsewhere classified Low vitamin D level Class 1 obesity due to excess calories with serious comorbidity and body mass index (BMI) of 30.0 to 30.9 in adult Primary osteoarthritis of right knee [facility] Diagnosis Other specified depressive episodes Urticaria, unspecified [facility] Diagnosis Gastro-esophageal reflux disease without esophagitis [facility] Diagnosis Insomnia, unspecified [facility] Diagnosis Mass of upper outer quadrant of left breast- Primary [facility] Diagnosis Lower urinary tract symptoms- Primary Other symptoms involving urinary system Peyronie's disease [facility] Diagnosis Urticaria, unspecified Other specified depressive episodes [facility] Diagnosis Gastro-esophageal reflux disease without esophagitis [facility] Diagnosis Essential (primary) hypertension Unspecified essential hypertension [facility] Diagnosis Hot flashes- Primary Hyperglycemia Other abnormal glucose Class 1 obesity due to excess calories with serious comorbidity and body mass index (BMI) of 30.0 to 30.9 in adult Mixed hyperlipidemia Right carpal tunnel syndrome Carpal tunnel syndrome [facility] Diagnosis Lower urinary tract symptoms- Primary Other symptoms involving urinary system Preop examination- Primary Unspecified pre-operative examination Hypertension, unspecified type PONCHO (obstructive sleep apnea) Obstructive sleep apnea (adult) (pediatric) Preop examination Unspecified pre-operative examination Hypertension, unspecified type PONCHO (obstructive sleep apnea) Obstructive sleep apnea (adult) (pediatric) Lower urinary tract symptoms Other symptoms involving urinary system [facility] Diagnosis Gastro-esophageal reflux disease without esophagitis Other specified depressive episodes [facility] Diagnosis Hypotension due to hypovolemia- Primary Asthma, unspecified asthma severity, unspecified whether complicated, unspecified whether persistent Polyp of sigmoid colon, unspecified type Essential hypertension Unspecified essential hypertension Obstructive sleep apnea syndrome Obstructive sleep apnea (adult) (pediatric) Anemia, unspecified type Right chronic serous otitis media Simple or unspecified chronic serous otitis media [facility] Diagnosis Insomnia, unspecified [facility] Diagnosis Hypoglycemia- Primary Hypoglycemia, unspecified Impaired fasting glucose [facility] Diagnosis Hypoglycemia- Primary Hypoglycemia, unspecified [facility] Diagnosis Hypoglycemia- Primary Hypoglycemia, unspecified Screening for diabetes mellitus [facility] Diagnosis ETD (Eustachian tube dysfunction), bilateral- Primary Chronic myringitis of right ear Screening for diabetes mellitus [facility] Diagnosis Chronic myringitis of right ear- Primary Dysfunction of right eustachian tube Foreign body of right ear, initial encounter Hypoglycemia Hypoglycemia, unspecified [facility] Diagnosis Gastro-esophageal reflux disease without esophagitis Other specified depressive episodes Asthma, unspecified asthma severity, unspecified whether complicated, unspecified whether persistent Hyperlipidemia, unspecified [facility] Diagnosis Hypoglycemia Hypoglycemia, unspecified [facility] Diagnosis Essential hypertension- Primary Unspecified essential hypertension Depressive disorder Depressive disorder, not elsewhere classified Chronic anxiety Anxiety state, unspecified PONCHO (obstructive sleep apnea) Obstructive sleep apnea (adult) (pediatric) Orthostatic hypotension Persistent asthma without complication, unspecified asthma severity Class 1 obesity due to excess calories with serious comorbidity and body mass index (BMI) of 31.0 to 31.9 in adult [facility] Diagnosis PONCHO (obstructive sleep apnea)- Primary Obstructive sleep apnea (adult) (pediatric) [facility] Diagnosis Urticaria, unspecified documented in this encounter [facility] [...] Health SystemInstructionsNot on filedocumented in this encounter [facility] Summary Purpose Family History Relationship Condition Age at Onset Recorded Date/T astrid father Malignant neoplasm Unknown Advance Directives Advance Directive Response Recorded Date/ Time Advance Directives No June 06, 2024 5:03pm Date Activated Date Inactivated Comments 11/28/2024 8:16 PM 11/29/2024 1:49 PM Date Activated Date Inactivated Comments 11/28/2024 8:16 PM 11/29/2024 1:49 PM Chief Complaint and Reason for Visit Chief Complaint Tooth and jaw pain Reason for Referral Specialty Diagnoses / Procedures Referred By Meri solorio Referred To Contact Radiology Diagnoses Cervical spondylosis with radiculopathy 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 Procedures CT CERVICAL SPINE WO CONTRAST Yon Lira, DO [facility] [facility] [address] [place] [address] Referral ID Status Reason Start Date Expiration Date Visits Re quested Visits Authorized [id number] Closed 08/29/2024 08/15/2025 1 1 Specialty Diagnoses / Procedures Referred By Meri solorio Referred To Contact Diagnoses Preop examination Hypertension, unspecified type PONCHO (obstructive sleep apnea) Procedures ECG 12 lead Delta Ren MD [address] [place] [address] Referral ID Status Reason Start Date Expiration Date V isits Requested Visits Authorized [id number] Pending Review 05/10/2024 05/10/2025 1 1 Additional [...] section and content) DATE CREATED AUTHOR 04/06/2019 [facility] DATE CREATED AUTHOR AUTHOR'S ORGANIZ ATION 11/09/2021 [facility] DATE CREATED AUTHOR AUTHOR'S ORGANIZ ATION 12/27/2021 [facility] DATE CREATED AUTHOR AUTHOR'S ORGANIZ ATION 01/14/2023 [facility] DATE CREATED AUTHOR AUTHOR'S ORGANIZ ATION 10/01/2023 [facility] DATE CREATED AUTHOR AUTHOR'S ORGANIZ ATION 06/15/[address] [facility] DATE CREATED AUTHOR AUTHOR'S ORGANIZ ATION 08/17/2024 [facility] DATE CREATED AUTHOR AUTHOR'S ORGANIZ ATION 09/19/2024 [facility] DATE CREATED AUTHOR AUTHOR'S ORGANIZ ATION 12/18/2024 [facility] DATE CREATED AUTHOR AUTHOR'S ORGANIZ ATION 01/31/2025 [facility] DATE CREATED AUTHOR AUTHOR'S ORGANIZ ATION 02/07/2025 [facility] DATE CREATED AUTHOR AUTHOR'S ORGANIZ ATION 02/25/2025 [facility] DATE CREATED AUTHOR AUTHOR'S ORGANIZ ATION 03/25/2025 [facility] Care Teams (unrecognized sec tion and content) Team Status: Active Member Role Status Dates Rodrick Richardson DO Primary Care Provider Active Team Status: Inactive Member Role Status Dates Em Appiah APRN Attending Provider Active Start: June 06, 2024 End: June 06, 2024 Rodrick Richardson DO Primary Care Provider Active Start: June 06, 2024 End: June 06, 2024 Draw Bench Operator Helper Relationship Specialty Start Date End Date Rodrick Richardson DO [address] [facility], [place] [address] PCP - General Family Medicine 10/16/16 Draw Bench Operator Helper Relationship Specialty Start Date End Date Rodrick Richardson DO PCP - General Family Medicine 07/18/19 Draw Bench Operator Helper Relationship Specialty Start Date End Date Rodrick Richardson DO [address] [place] [address] PCP - General Family Medicine 10/16/16 Draw Bench Operator Helper Relationship Specialty Start Date End Date Rodrick Richardson DO [address] [place] [address] PCP - General Family Medicine 10/16/16 Draw Bench Operator Helper Relationship Specialty Start Date End Date Rodrick Richardson DO [address] [place] [address] PCP - General Family Medicine 10/16/16 Draw Bench Operator Helper Relationship Specialty Start Date End Date Rodrick Richardson DO [address] [place] [address] PCP - General Family Medicine 10/16/16 Draw Bench Operator Helper Relationship Specialty Start Date End Date Rodrick Richardson DO [address] [place] [address] PCP - General Family Medicine 10/16/16 Draw Bench Operator Helper Relationship Specialty Start Date End Date Rodrick Richardson DO [address] [place] [address] PCP - General Family Medicine 10/16/16 Draw Bench Operator Helper Relationship Specialty Start Date End Date Rodrick Richardson DO [address] [place] [address] PCP - General Family Medicine 10/16/16 Draw Bench Operator Helper Relationship Specialty Start Date End Date Rodrick Richardson DO [address] [place] [address] PCP - General Family Medicine 10/16/16 Draw Bench Operator Helper Relationship Specialty Start Date End Date Rodrick Richardson DO [address] [place] [address] PCP - General Family Medicine 10/16/16 Draw Bench Operator Helper Relationship Specialty Start Date End Date Rodrick Richardson DO [address] [place] [address] PCP - General Family Medicine 10/16/16 Draw Bench Operator Helper Relationship Specialty Start Date End Date Rodrick Richardson DO [address] [place] [address] PCP - General Family Medicine 10/16/16 Draw Bench Operator Helper Relationship Specialty Start Date End Date Rodrick Richardson DO [address] [place] [address] PCP - General Family Medicine 10/16/16 Draw Bench Operator Helper Relationship Specialty Start Date End Date Rodrick Richardson DO [address] [place] [address] PCP - General Family Medicine 10/16/16 Draw Bench Operator Helper Relationship Specialty Start Date End Date Rodrick Richardson DO [address] [place] [address] PCP - General Family Medicine 10/16/16 Draw Bench Operator Helper Relationship Specialty Start Date End Date Rodrick Richardson DO [address] [place] [address] PCP - General Family Medicine 10/16/16 Draw Bench Operator Helper Relationship Specialty Start Date End Date Rodrick Richardson DO [address], [place] [address] PCP - General Family Medicine 10/16/16 Draw Bench Operator Helper Relationship Specialty Start Date End Date Rodrick Richardson MD [address], [place] [address] PCP - General Family Medicine 12/27/24 Draw Bench Operator Helper Relationship Specialty Start Date End Date Rodrick Richardson MD [address] [place] [address] PCP - General Family Medicine 12/27/24 Draw Bench Operator Helper Relationship Specialty Start Date End Date Rodrick Richardson MD [address] [place] [address] PCP - General Family Medicine 12/27/24 Draw Bench Operator Helper Relationship Specialty Start Date End Date Rodrick Richardson DO [address], [place] [address] PCP - General Family Medicine 10/16/16 Draw Bench Operator Helper Relationship Specialty Start Date End Date Rodrick Richardson MD [address], [place] [address] PCP - General Family Medicine 12/27/24 Draw Bench Operator Helper Relationship Specialty Start Date End Date Rodrick Richardson MD [address], [place] [address] PCP - General Family Medicine 12/27/24 Draw Bench Operator Helper Relationship Specialty Start Date End Date Rodrick Richardson DO [address], [place] [address] PCP - General Family Medicine 10/16/16 Draw Bench Operator Helper Relationship Specialty Start Date End Date Rodrick Richardson DO [address], [place] [address] PCP - General Family Medicine 10/16/16 Draw Bench Operator Helper Relationship Specialty Start Date End Date Rodrick Richardson DO [address] [place] [address] PCP - General Family Medicine 10/16/16 Goals [...] Refill Specialty Diagnoses / Procedures Referred By Contac t Referred To Contact Radiology Diagnoses Cervical spondylosis with radiculopathy 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 Procedures CT CERVICAL SPINE WO CONTRAST Yon Lira, DO [address] [facility] [address] [place] [address] Referral ID Status Reason Start Date Expiration Date Visits Re quested Visits Authorized [id number] Closed 08/29/2024 08/15/2025 1 1 Reason Onset Date Comments Appointment Due 01/01/2024 Reason Onset Date Comments Med Refill 10/10/2024 Reason Comments Hyperlipidemia Hypertension Reason Comments Follow-up follow up / prev see n fumo Reason Onset Date Comments Med Refill 03/14/2024 Reason Comments Hot Flashes referral / right arm numbness Reason Onset Date Comments Transition Of Care 12/01/2024 Reason Comments Follow-up November 29 follow up PM H, right ear infection. Drainage. Reason Comments Diabetes Reason Comments Sinusitis Specialty Diagnoses / Procedures Referred By Contac t Referred To Contact Otolaryngology Diagnoses Right chronic serous otitis media Procedures 87 (Epic.EAP.ID) - Ambulatory referral to ENT ([facility]) Rodrick Richardson MD [address] [facility], [place] [address] Phone: tel: fax: Susan Abernathy MD [address] [place] [address] Phone: tel: fax: Referral ID Status Reason Start Date Expiration Date Visits Re quested Visits Authorized [id number] Closed 12/15/2024 12/15/2025 1 1 Reason Comments Ear Problem 3 week check ears Reason Comments Diabetes Follow-up LAB Reason Comments bp, Breathing problems, dizziness at times. Fatigue FOR RECORDS PERTAINING TO PATIENTS WHO ARE [...] BE BASED ON THE PRIMARY CLINICAL RECORDS. [employer] [facility]. provides no warranty or guarantee of the accuracy or completeness of information in this document.
--- NOTE | 2025-04-27 13:25 | PM.CN ---
Consult Note: HPI Data of Consult Patient: known to practice within the last 3 years Requesting Physician: Anaid Phelps NP Primary Care Provider: GOLDEN RICHARDSON Consult Narrative Reason for consult: neck pain Narrative: 49yom who presents for assessment. longstanding neck and bilateral upper extremity pain. imaging shows multilevel stenosis and spondylosis. continues in series of provider directed home exercises >6 weeks, without significant benefit. uses percocet, diclofenac and lyrica. denies adverse med side effects. pain today 5/10 increasing to 10/10 with twisting, pushing, pulling, lifting, bending, and activity. notes no improvement with sitting, lying, heat, ice, or massage. denies injury since last visit. no available consult note but pt was evaluated by CY Barboza at [facility]. cc:: CC: Anaid Phelps NP Review of Systems ROS Musculoskeletal Reports: neck pain and extremity pain PFSH PFS Medical History (Updated 05/18/24 @ 14:03 by Eliz Swift RN) Osteoarthritis ?M19.90 - Unspecified osteoarthritis, unspecified site (ICD-10) Carpal tunnel syndrome ?G56.00 - Carpal tunnel syndrome, unspecified upper limb (ICD-10) Acid reflux ?K21.9 - Gastro-esophageal reflux disease without esophagitis (ICD-10) Enlarged prostate ?N40.0 - Benign prostatic hyperplasia without lower urinary tract symptoms (ICD-10) Asthma ?J45.909 - Unspecified asthma, uncomplicated (ICD-10) HTN (hypertension) ?I10 - Essential (primary) hypertension (ICD-10) Surgical History History of vasectomy ?Z98.52 - Vasectomy status (ICD-10) History of myringotomy ?Z98.890 - Other specified postprocedural states (ICD-10) History of shoulder surgery ?Z98.890 - Other specified postprocedural states (ICD-10) Hx of tonsillectomy ?Z90.89 - Acquired absence of other organs (ICD-10) History of knee surgery ?Z98.890 - Other specified postprocedural states (ICD-10) History of neck surgery ?Z98.890 - Other specified postprocedural states (ICD-10) Meds Home Medications and Allergies Home Medications ?Medication ?Instructions ?Recorded ?Confirmed ?Type atorvastatin 10 mg tablet 10 mg PO DAILY 05/13/23 05/23/24 History cetirizine 10 mg tablet 10 mg PO DAILY PRN allergy symptoms 05/13/23 05/23/24 History cholecalciferol (vitamin D3) 25 25 mcg PO DAILY 05/13/23 05/23/24 History mcg (1,000 unit) capsule (Vitamin D3) docusate sodium 100 mg capsule 100 mg PO DAILY 05/13/23 05/23/24 History hydroxyzine HCl 10 mg tablet 10 mg PO DAILY 05/13/23 05/23/24 History lisinopril 20 1 tab PO DAILY 05/13/23 05/23/24 History mg-hydrochlorothiazide 12.5 mg tablet omeprazole 20 mg capsule,delayed 20 mg PO DAILY 05/13/23 05/23/24 History release tamsulosin 0.4 mg capsule (Flomax) 0.4 mg PO DAILY 05/13/23 05/23/24 History venlafaxine 150 mg 150 mg PO DAILY 05/13/23 05/23/24 History capsule,extended release 24 hr (Effexor XR) tizanidine 4 mg tablet 4 mg PO TID PRN muscle spasticity 07/26/24 Rx #90 tabs tizanidine 4 mg tablet 4 mg PO TID PRN muscle spasticity 11/02/24 Rx #90 tabs oxycodone-acetaminophen 5 mg-325 See Rx Instructions .Route 01/26/25 Rx mg tablet (Percocet) .COMPLEX PRN pain #130 tabs pregabalin 100 mg capsule (Lyrica) See Rx Instructions .Route 01/26/25 Rx .COMPLEX #120 caps baclofen 10 mg tablet 10 mg PO TID PRN muscle spasm #90 02/27/25 Rx tabs oxycodone-acetaminophen 5 mg-325 See Rx Instructions .Route 02/27/25 Rx mg tablet (Percocet) .COMPLEX PRN pain #130 tabs pregabalin 100 mg capsule (Lyrica) See Rx Instructions .Route 02/27/25 Rx .COMPLEX #120 caps diclofenac sodium 75 mg 75 mg PO BID PRN pain #60 tabs 03/13/25 Rx tablet,delayed release oxycodone-acetaminophen 5 mg-325 1 tab PO .4-5 times daily PRN pain 03/27/25 Rx mg tablet (Percocet) #130 tabs pregabalin 100 mg capsule (Lyrica) 100 mg PO QID #120 caps 03/27/25 Rx Allergies Allergy/AdvReac Type Severity Reaction Status Date / Time corn Allergy Vomiting Verified 05/23/24 09:22 Penicillins Allergy Hives Verified 05/23/24 09:22 ibuprofen AdvReac Nausea Verified 05/23/24 09:22 prednisone AdvReac Palpitation Verified 05/23/24 09:22 s Exam Constitutional Documenting provider has reviewed patient's vital signs: yes Common normals: no apparent distress, oriented x3, healthy appearing, alert and well nourished General appearance: cooperative HENMT Common normals: normocephalic, hearing grossly normal bilaterally and moist oral mucous membranes Head and scalp: normocephalic Eye Common normals: PERRL Pupil: PERRL Neck & C-Spine Common normals: full ROM General: normal visual inspection Cervical spine: cervical ROM abnormal, pain with cervical ROM, cervical spine tenderness and paracervical muscle tenderness Other: positive facet loading positive spurlings strength 4/5 in BUE decreased sensation C4,5,6 Chest Common normals: inspection of chest normal Respiratory Common normals: normal respiratory effort, no retractions and no use of accessory muscles Neuro Common normals: oriented x3 Sensorium/orientation: alert Motor exam: strength 5/5 throughout and no movement abnormalities noted Psych Common normals: mental status grossly normal, thought process normal, cooperative, affect normal, speech normal and activity/motor behavior normal Speech: normal speech Thought process: normal thought process Results Additional Findings Additional findings: If on a controlled substance or opioids, I have checked an [place] report on this patient and there are no aberrancies noted in the prescribing history.??If on a controlled substance or opioid a drug screen was completed and reviewed within the last year, and if there has not been a drug screen completed we ordered one today to monitor higher risk, state monitored pain medication use. As part of providing excellent, safe, comprehensive care, the following was completed at our patient's visit: 1. A medication reconciliation and review to ensure accurate knowledge of current/active medications, including asking our patients to inform us about any [id number]-[id number] medications or herbal remedies/nutritional supplements/alternative remedies. 2. A review to specifically ensure our patients have had annual screening for screening for depression, screening for tobacco use, and screening for unhealthy alcohol use. For concerning screenings had a discussion with the patient, provided patient education, and recommended follow-up with primary care provider when appropriate. If patient noted with a risk of falling, they received education on strength, gait, and balance training to prevent future risk of falling. Portions of this note may have been carried over from the previous visit and updated as appropriate. Please note this office utilizes paper charting in addition to the electronic medical record. A list of current medications, vitals, and PMH is available there as the clinical staff outside of myself do not have access to [employer] charting during the clinic day operations. As part of providing quality comprehensive care the current medications, vitals, and PMH were reviewed in the paper chart. Assessment and Plan Assessment and Plan (1) Displacement of intervertebral disc at C4-C5 level: (2) Displacement of intervertebral disc at C5-C6 level: (3) Chronic prescription opiate use: Assessment and Plan: I feel these medications are improving the patient's quality of life and allow them to tolerate activities of daily living as well as participate in recreational activity.? The patient does not report intolerable side effects. The patient is NOT opioid naive and non-pharmacologic and non-opioid treatment has failed to significantly relieve the patient's pain and improve functionality. The patient has a diagnosis that is related to a somatic or visceral pain etiology. ? ?? I reviewed with the patient the potential risks and side effects with the use of? opioid medications including but not limited to respiratory depression,? sedation, and even . Within the last 12 months I have verified the patient has access to naloxone should? these effects occur. The patient was advised to let? their family know they had Naloxone in case they would need to administer? the medication. I advised the patient to avoid the use of any other? sedation substances including alcohol, THC, and benzodiazepines while? taking opioid medications due to the risk of compounding side effects and? detrimental outcomes. within the last 12 months I have reviewed the ERP MANAGER, pain treatment agreement and urine drug screen.? ?? A drug screen was completed within the last year, and no aberrancies were noted regarding their use of controlled substances. The patient understands they are subject to the terms and conditions of the pain contract that they have signed. ? ?? I have checked an OAR[place] report on this patient today and there are no aberrancies noted in the prescribing history.? Plan continue f/u with NS, we recommend spinal cord stimulator trial if pt non surgical continue HEP as tolerated continue current medications, reporting mild pain relief and functional improvement without side effects. unfortunately limited options available f/u 3 months, sooner if needed
== END 2025-04-27 13:00 | disposition home or self-care (01) ==
PROVIDERS: PCP Family Medicine; Visit Provider Nurse Practitioner
DX: M50.221 Other cervical disc displacement at C4-C5 level (principal); M50.222 Other cervical disc displacement at C5-C6 level; Z79.891 Long term (current) use of opiate analgesic
CPT/HCPCS: G0463

== ENCOUNTER 2025-07-05 13:17 | Outpatient (OUT) | payer MEDICARE, SELFPAY ==
--- OUTSIDE RECORDS SUMMARY | 2025-06-26 14:20 | XMS_ITS | Encounter Summary ---
Author Organization [facility] Address [address] [facility] [facility], [address] [place] [address] Care Team Providers Care Sea Captain Name Role Phone Rodrick Ramires DO Primary Care Provider + [phone] Reason for Referral * Imaging (Routine) - OpenSpecialtyDiagnoses / ProceduresReferred By Contact Referred To ContactRadiology Diagnoses Syncope and collapse Generalized weakness Muscle spasm Hyperreflexia Lightheadedness Procedures MRI CERVICAL SPINE W WO CONTRAST Lisset Torres PA [address] [place] [address] Phone: tel: fax: Referral IDStatusReasonStart DateExpiration DateVisits RequestedVisits [id number]/27/202611 * Imaging (Routine) - OpenSpecialtyDiagnoses / ProceduresReferred By Contact Referred To ContactRadiology Diagnoses Syncope and collapse Generalized weakness Muscle spasm Hyperreflexia Lightheadedness Procedures MRI BRAIN W WO CONTRAST Lisset Torres PA [address] [place] [address], [facility] [address] [place] [address] Phone: tel: fax: Referral IDStatusReasonStart DateExpiration DateVisits RequestedVisits [id number] Reason for Visit * ReasonCommentsDizzinessNeurologic Problem * Consult for Advice and Opinion (Routine) - Pending ReviewSpecialtyDiagnoses / ProceduresReferred By ContactReferred To ContactNeurology Diagnoses Paresthesia Dizziness Procedures 133 (Epic.EAP.ID) - Ambulatory referral to Neurology (Non[facility]) Rodrick Ramires, DO [address] [facility], [place] [address] Phone: tel: fax: [place] [address] [place] [address] Phone: tel: fax: Referral IDStatusReasonStart DateExpiration DateVisits RequestedVisits [id number] Review/ Encounter Details DateTypeDepartmentCare Team (Latest Contact Info)Ypomskmcbrw91/27/2025 3:20 PM EDTOffice Visit [facility] Specialist [address] [facility] [address] [place] [address] [phone] Lisset Torres PA [address] [facility], [address] [id number] Syncope and collapse (Primary Dx); Generalized weakness; Muscle spasm; Hyperreflexia; Lightheadedness Social History Tobacco UseTypesPacks/DayYears UsedDateSmoking Tobacco: NeverPassive Smoke Exposure: NeverSmokeless Tobacco: NeverChew Tobacco Cessation:Counseling Given: Not Answered Alcohol UseStandard Drinks/WeekCommentsNot Currently0 (1 standard drink = 0.6 oz pure alcohol)Sex and Gender InformationValueDate RecordedSex Assigned at Male11/15/2023 6:00 PM EDTLegal MvaKcpd96/14/2019 3:27 PM ESTGender IdentityMale 11/15/2023 6:00 PM EDTSexual MpxwnfwcujsCsncijov34/17/2024 6:00 PM EDTdocumented as of this encounter Last Filed Vital Signs Vital SignReadingTime TakenCommentsBlood Uiyefkim968/8806/26/2025 3:08 PM EDT Felxs105806/26/2025 3:08 PM EDTTemperature--Respiratory Rate--Oxygen Saturation-- Inhaled Oxygen Concentration--Jfnsqv11.4 kg (203 lb 9.6 oz)06/26/2025 3:08 PM VBZWpbtmo866.5 cm (5' 7.5 )06/26/2025 3:08 PM EDTBody Mass Index31.421 3:08 PM EDTdocumented in this encounter Plan of Treatment NameTypePriorityAssociated DiagnosesOrder ScheduleMRI BRAIN W WO CONTRASTImaging Routine Syncope and collapse Generalized weakness Muscle spasm Hyperreflexia Lightheadedness Expected: 06/26/2025, Expires: 06/26/2026ortisol TotalLabRoutine Syncope and collapse Generalized weakness Muscle spasm Hyperreflexia Lightheadedness Expected: 06/26/2025, Expires: 06/26/2026TSH reflex to BB0UnaNtyepcm Syncope and collapse Generalized weakness Muscle spasm Hyperreflexia Lightheadedness Expected: 06/26/2025, Expires: 06/26/2026Vitamin B12 & FolateLabRoutine Syncope and collapse Generalized weakness Muscle spasm Hyperreflexia Lightheadedness Expected: 06/26/2025, Expires: 06/26/2026NA Screen With ReflexLabRoutine Syncope and collapse Generalized weakness Muscle spasm Hyperreflexia Lightheadedness Expected: 06/26/2025, Expires: 06/26/2026MRI CERVICAL SPINE W WO CONTRASTImaging Routine Syncope and collapse Generalized weakness Muscle spasm Hyperreflexia Lightheadedness Expected: 06/26/2025, Expires: 06/26/2026-Reactive ProteinLabRoutine Syncope and collapse Generalized weakness Muscle spasm Hyperreflexia Lightheadedness Expected: 06/26/2025, Expires: 06/26/2026Lyme Disease Reflex Panel (Tier 1)Lab Routine Syncope and collapse Generalized weakness Muscle spasm Hyperreflexia Lightheadedness Expected: 06/26/2025, Expires: 06/26/2026documented as of this encounter Visit Diagnoses Diagnosis Syncope and collapse- Primary Generalized weakness Other malaise and fatigue Muscle spasm Spasm of muscle Hyperreflexia Abnormal reflex Lightheadedness Dizziness and giddiness documented in this encounter Care Teams Team MemberRelationshipSpecialtyStart DateEnd Date Rodrick Ramires DO PCP - GeneralFamily Bdbvlaso32/18/19documented as of this encounter
--- OUTSIDE RECORDS SUMMARY | 2025-07-05 13:21 | XMS_ITS | Clinical Summary ---
Author Organization [facility] Address [address], [address] [place] [address] Care Team Providers Care Flange Turner Name Role Phone KeylaRodrick Irvin MATAMOROS Primary Care Provider Allergies Active AllergyReactionsCriticalityNoted DateCommentsCorn OilDiarrhea,Nausea And WzrmyfcoRjulji46/03/2016 Other reaction(s): Other: See Comments IbuprofenOther (See Comments)Otjddc4607/03/2016 Other reaction(s): GI Disturbance PenicillinsHives,KpomMvekzn82/03/2016PrednisoneHives,Shortness Of Breath, Swelling,Other (See Comments)High07/03/2016 All related Medications MedicationSigDispense QuantityRefillsLast FilledStart DateEnd DateStatus cyclobenzaprine (FLEXERIL) 5 MG tablet TAKE ONE TABLET BY MOUTH THREE TIMES DAILY NEEDED FOR MUSCLE SPASMS0 06/16/2019Active hydrOXYzine (ATARAX) 10 MG tablet TAKE 1 TABLET BY MOUTH EVERY DAY IN THE YJSXCFB181Active lisinopril-hydrochlorothiazide (PRINZIDE;ZESTORETIC) 20-12.5 MG per tablet lisinopril 20 mg-hydrochlorothiazide 12.5 mg tablet TAKE 1 TABLET BY MOUTH EVERY DAYActive oxyCODONE-acetaminophen (PERCOCET) 5-325 MG per tablet Take 1 tablet by mouth every 6 hours as needed.Active pregabalin (LYRICA) 100 MG capsule Take 1 capsule by mouth 3 times daily.Active famotidine (PEPCID) 20 MG tablet Take 1 tablet by mouth vefli427Active venlafaxine (EFFEXOR XR) 150 MG extended release capsule Take 1 capsule by mouth daily (with breakfast)Active calcium elemental (OSCAL) 500 MG TABS tablet TAKE ONE TABLET BY MOUTH THREE TIMES HHCUH952Active ciprofloxacin (CIPRO) 500 MG tablet take 1 tablet by mouth every 12 qjhkc04209/09/2018Active Cholecalciferol (VITAMIN D) 50 MCG (1999) TABS tablet TAKE ONE TABLET BY MOUTH EVERY POT170Active ketorolac (TORADOL) 10 MG tablet Take 1 tablet by mouth every 6 hours as needed for Pain 10 tablet 07/18/2019Active Additional Information Patient not taking.Reported on 06/26/2025 diclofenac (VOLTAREN) 75 MG EC tablet Take 1 tablet by mouth 2 times daily (with meals)Active tamsulosin (FLOMAX) 0.4 MG capsule Take 1 capsule by mouth fndwxjv1906/02/2023ctive rosuvastatin (CRESTOR) 10 MG tablet Take 1 tablet by mouth daily11/30/2022ctive oxybutynin (DITROPAN-XL) 10 MG extended release tablet Take 1 tablet by mouth every morningActive mirtazapine (REMERON) 15 MG tablet Take 1 tablet by mouth daily07/08/2023ctive omeprazole (PRILOSEC) 20 MG delayed release capsule Take 1 capsule by mouth daily06/30/2023ctive baclofen (LIORESAL) 20 MG tablet 03/17/2023ctive calcium citrate (CALCITRATE) 950 (200 Ca) MG tablet Take 1 tablet by mouth 2 times daily10/30/2022ctive cetirizine (ZYRTEC) 10 MG tablet Take 1 tablet by mouth daily05/13/2023ctive docusate (COLACE, DULCOLAX) 100 MG CAPS Take 1 tablet by mouth daily05/06/2022ctive fluticasone (FLONASE) 50 MCG/ACT nasal spray Active ketoconazole (NIZORAL) 2 % shampoo APPLY TOPICALLY 3 TIMES A WEEKActive tiZANidine (ZANAFLEX) 4 MG tablet Take 1 tablet by mouth 2 times daily04/19/2024Active albuterol sulfate HFA (PROVENTIL;VENTOLIN;PROAIR) 108 (90 Base) MCG/ACT inhaler Inhale 2 puffs into the lungs every 6 hours as needed for Epbstasn85/09/2025 Active ARNUITY ELLIPTA 100 MCG/ACT AEPB INHALE 1 PUFF IN THE UAUBPVJ45/29/2025Active lisinopril (PRINIVIL;ZESTRIL) 10 MG tablet Take 0.5 tablets by mouth every /09/2025Active Active Problems ProblemNoted DateDiagnosed LaocYzqsuemrocbi13/18/2019 Encounters DateTypeDepartmentCare PvzxIqwkhmwbmbc86/29/2025Telephone [facility] [address] [place] [address] [address] [place] [address] Lisset Torres PA Eye Exam06/26/2025 3:20 PM EDTOffice Visit [facility] [address] [place] [address] [address] [place] [address] Lisset Torres PA Syncope and collapse (Primary Dx); Generalized weakness; Muscle spasm; Hyperreflexia; Lightheadednessfrom Last 3 Months Family History RelationNameStatusCommentsFatherAliveMotherAlive Social History Tobacco UseTypesPacks/DayYears UsedDateSmoking Tobacco: NeverPassive Smoke Exposure: NeverSmokeless Tobacco: NeverChew Tobacco Cessation:Counseling Given: Not Answered Alcohol UseStandard Drinks/WeekCommentsNot Currently0 (1 standard drink = 0.6 oz pure alcohol)Sex and Gender InformationValueDate RecordedSex Assigned at Male11/15/2023 6:00 PM EDTLegal PezHeur67/14/2019 3:27 PM ESTGender IdentityMale 11/15/2023 6:00 PM EDTSexual SzasonasojdGaykcmpq07/17/2024 6:00 PM EDT Last Filed Vital Signs Vital SignReadingTime TakenCommentsBlood Bzjzloyq154/8806/26/2025 3:08 PM EDT Zaian826206/26/2025 3:08 PM EDTTemperature--Respiratory Rate--Oxygen Bytldcbalj89% 01/09/2025 2:24 PM EDTInhaled Oxygen Concentration--Fedoes83.4 kg (203 lb 9.6 oz)06/26/2025 3:08 PM SVTQcatbm197.5 cm (5' 7.5 )06/26/2025 3:08 PM EDTBody Mass Index31.421 3:08 PM EDT Plan of Treatment Health MaintenanceDue DateLast JkqzAyhgawquHpvglw19/09/1987Depression Screen 1988HIV rypufm7409/08/1991Hepatitis C kdcmqj1209/08/1994Diabetes screen 09/08/20111772Gkloxhraybt66/09/2022olorectal Cancer Jsxmke3309/08/2021FIT/FOBT: Average risk2021Fecal-DNA (Cologuard): Average risk2021 Sigmoidoscopy/CT yxqpoqgjovxh31/09/2022nnual Wellness Visit (Medicare Advantage)08/31/2024Flu vaccine (#1)512/, 08/27/2019, 06/13/2019, Additional history existsCOVID-19 Vaccine (3 - 2024- season) 504/, 1DTaP/Tdap/Td vaccine (2 - Td or Tdap)11/29/2025 11/30/2015Hepatitis B ldvdnzeGmrjwgbxu04/28/2014, 09/26/2013, 07/27/2013 Hepatitis A vaccineAged OutNo longer eligible based on patient's age to complete this topicHib vaccineAged OutNo longer eligible based on patient's age to complete this topicMeningococcal (ACWY) vaccineAged OutNo longer eligible based on patient's age to complete this topicMeningococcal B vaccineAged OutNo longer eligible based on patient's age to complete this topicPneumococcal 0-49 years VaccineAged OutNo longer eligible based on patient's age to complete this topic Polio vaccineAged OutNo longer eligible based on patient's age to complete this topic Insurance MemberSubscriberPlan / Payer (Effective 2015-Present)Name:Lonnie Kenny Relation to Subscriber:EmployeeName:[employer] Date of :1898 (Home) Address: [address] [place] [address] Payer ID:Not on file Group ID:Not on file Type:Not on file Address: [address] [place] [id number] Care Teams Team MemberRelationshipSpecialtyStart DateEnd Date Rodrick Ramires DO PCP - GeneralFamily Obialcrx29/18/19
--- OUTSIDE RECORDS SUMMARY | 2025-07-05 13:21 | XMS_ITS | Clinical Summary ---
Author Organization [facility] Address [address] [place] [address] Care Team Providers Care Poultry Trimmer Name Role Phone Rodrick Ramires DO Primary Care Provider Allergies Active AllergyReactionsCriticalityNoted DateCommentsCornOther: See Comments 07/03/2016IbuprofenGI Upset07/03/20167262RjxwckjnvmFfay68/03/2016PrednisoneSwelling 07/03/2016 Medications MedicationSigDispense QuantityRefillsLast FilledStart DateEnd DateStatus venlafaxine XR (EFFEXOR XR) 150 mg 24 hr capsule Take 150 mg by mouth once daily.Active oxyCODONE-acetaminophen (PERCOCET) 5-325 mg tablet Take 1 tablet by mouth three times daily.Active pregabalin (LYRICA ORAL) Take by mouth.Active famotidine (PEPCID AC ORAL) Take by mouth.Active docusate sodium (COLACE) 100 mg capsule Take 1 capsule by mouth twice daily. 28 capsule 04/06/2019Active witch soledad (ANN MARIE GRACE,) 50 % padm Apply 1 application to affected area as needed. 20 Each 04/06/2019Active Active Problems ProblemNoted DateDiagnosed DatePrimary osteoarthritis of right knee07/03/2016 Chondromalacia of ookzkrm5207/03/2016 Social History Tobacco UseTypesPacks/DayYears UsedDateSmoking Tobacco: NeverSmokeless Tobacco: CurrentChewAlcohol UseStandard Drinks/WeekCommentsNot Asked0 (1 standard drink = 0.6 oz pure alcohol)PHQ-2AnswerDate RecordedPHQ-2 Hijjd14609/22/2018Sex and Gender InformationValueDate RecordedSex Assigned at BirthNot on fileLegal SexMale 08/01/2012 9:47 AM ESTGender IdentityNot on fileSexual OrientationNot on file Last Filed Vital Signs Vital SignReadingTime TakenCommentsBlood Ucfbyyxb943/9008 8:49 PM EDT Opvbq4574 8:49 PM FVGTwhhgwitlit42.8 ??C (98.2 ??F)04/06/2019 9:03 PM EDTRespiratory Nbhx561804/06/2019 9:03 PM EDTOxygen Qaoaayuunv922%04/06/2019 8:49 PM EDTInhaled Oxygen Concentration--Psybzd99.3 kg (188 lb)04/06/2019 6:15 PM EDT Aipuct118.7 cm (5' 8 )04/06/2019 6:15 PM EDTBody Mass Index28.59004/06/2019 6:15 PM EDT Plan of Treatment Health MaintenanceDue DateLast DoneCommentsAnxiety Qsmdmcvcs13/09/1995Depression Ozbgxeudz19/09/1995HIV Fqhiedmci60/09/1995Hepatitis C Slmhrxbag79/09/1995 Hepatitis B Vaccine (1 of 3 - 19+ 3-dose series)1995Lipid Screening 2011CT Eohswvnbpkla09/09/2022Cologuard (FIT-DNA)2Colonoscopy 2Colorectal Cancer Geeargivd53/09/2022Fecal Occult Blood2021 Crppbicbnnllc51/09/2022Diabetes Mqounjfng09Covid-19 Vaccine ( - season)2025Influenza Vaccine (#1)/07/2018, 08/21/2015DTaP,Tdap,Td Vaccine (2 - Td or Tdap) Procedures Procedure NamePriorityDate/TimeAssociated DiagnosisCommentsCOMPRE META PANLSTAT 04/06/2019 6:38 PM EDT from Last 3 Months or Most Recently Relevant to Health Maintenance Results * COMPREHENSIVE METABOLIC PANEL (AK,AV,EU,FV,HL,ALYSON,MM,SP) (04/06/2019 6:38 PM EDT)ComponentValueRef RangeTest MethodAnalysis TimePerformed AtPathologist SignatureProtein, Total7.56.3 - 8.0 g/dL04/06/2019 7:24 PM [facility] LaboratoryAlbumin4.83.9 - 4.9 g/dL04/06/2019 7:24 PM [facility] LaboratoryCalcium9.88.5 - 10.2 mg/dL04/06/2019 7:24 PM [facility] LaboratoryBilirubin, Total0.40.2 - 1.3 mg/dL04/06/2019 7:24 PM [facility] LaboratoryAlkaline Udyxewthjxe2296 - 113 U/L04/06/2019 7:[address] [facility] LaboratoryASTUnable to assay. Specimen hemolyzed.14 - 40 U/L 04/06/2019 7:24 PM [facility] DqjfvvfexyAatxnsd2679 - 99 mg/dL04/06/2019 7:24 PM [facility] LaboratoryComment: The [place] Diabetes Association (ADA) provides guidance for cutoff [...] Standards of Medical Care in Diabetes 2016, Scottish Diabetes Association. Diabetes Care. 2016.39(Suppl 1). BUN99 - 24 mg/dL04/06/2019 7:24 PM [facility] LaboratoryCreatinine1.030.73 - 1.22 mg/dL04/06/2019 7:24 PM [facility] PwfnsscyatLaqyxg851894 - 144 mmol/L04/06/2019 7:24 PM [facility] LaboratoryPotassium4.43.7 - 5.1 mmol/L 04/06/2019 7:24 PM [facility] LaboratoryComment: Specimen is slightly hemolyzed. Results are unaffected by this level of hemolysis. The performance characteristics of this test were determined by [facility]'s [facility]. It has not been cleared or approved by the FDA. [facility] is regulated under CLIA as qualified to perform high complexity testing. This test is used for clinical purposes. It should not be regarded as investigational or for research. Ofpclcew6006 - 105 mmol/L04/06/2019 7:24 PM [facility] BbdiiemainQN47580 - 30 mmol/L04/06/2019 7:24 PM [facility] LaboratoryAnion Jkg578 - 18 mmol/L 04/06/2019 7:24 PM [facility] LaboratoryALTUnable to assay. Specimen hemolyzed.10 - 54 U/L04/06/2019 7:24 PM [facility] LaboratoryeGFR->6008 7:24 PM [facility] LaboratoryeGFR-All Other Races>60 .04/06/2019 7:24 PM [facility] LaboratoryComment: eGFR (Estimated GFR) Units of measure: mL/min/1.73 [...] eGFR may not accurately reflect actual GFR. Specimen (Source)Anatomical Location / LateralityCollection Method / Volume Collection TimeReceived TimeBlood specimen (specimen)BLOOD SPECIMEN / Unknown 04/06/2019 6:38 PM EDT04/06/2019 7:09 PM EDT Narrative Authorizing ProviderResult TypeResult StatusSuyapa [facility] REGIONALFinal ResultPerforming OrganizationAddressCity/State/ZIP CodePhone Number [facility] [address] [place] [address], [facility] from Last 3 Months or Most Recently Relevant to Health Maintenance Insurance [facility] Address: [facility] [id number] [place] [phone] [facility] Address: [address], [address] [address] Care Teams Team MemberRelationshipSpecialtyStart DateEnd Date Rodrick Ramires DO [address] [place] [address] PCP - GeneralFamily Medicine04/06/19
--- OUTSIDE RECORDS SUMMARY | 2025-07-05 13:21 | XMS_ITS | Encounter Summary ---
Author Organization [facility] Address [address], [address] [place] [address] Care Team Providers Care Desk Lieutenant Name Role Phone KeylaRodrick Primary Care Provider Reason for Visit * ReasonOnset DateCommentsEye Exam06/28/2025 Encounter Details DateTypeDepartmentCare Team (Latest Contact Info)Umujcbmpfju42/29/2025Telephone [facility] [address] [place] [address] Lisset Torres PA [address], [address] [place] [address] Eye Exam Social History Tobacco UseTypesPacks/DayYears UsedDateSmoking Tobacco: NeverPassive Smoke Exposure: NeverSmokeless Tobacco: NeverChewAlcohol UseStandard Drinks/Week CommentsNot Currently0 (1 standard drink = 0.6 oz pure alcohol)Sex and Gender InformationValueDate RecordedSex Assigned at ZrbxlFvcf04/17/2024 6:00 PM EDT Legal FkvSksl91/14/2019 3:27 PM ESTGender CclaikodJqlw16/17/2024 6:00 PM EDT Sexual WhngsfbjqveQevahnvv45/17/2024 6:00 PM EDTdocumented as of this encounter Plan of Treatment Not on file documented as of this encounter Visit Diagnoses Not on filedocumented in this encounter Care Teams Team MemberRelationshipSpecialtyStart DateEnd Date Rodrick Ramires DO PCP - GeneralFamily Usrsdwvj85/18/19documented as of this encounter
--- OUTSIDE RECORDS SUMMARY | 2025-07-05 13:21 | XMS_ITS | Clinical Summary ---
Author Organization [place] [facility] Address [address] [place] [address] Care Team Providers Care Story Reader Name Role Phone Rodrick Ramires DO Primary Care Provider [phone] Allergies Active AllergyReactionsCriticalityNoted DateCommentsCornDiarrhea,UnknownLow 07/03/2016 Other reaction(s): Other: See Comments [place] OilDiarrhea,Nausea And OxfekqlrJnxgrk36/03/2016 Other reaction(s): Other: See Comments Other Reaction(s): Other: See Comments Other reaction(s): Other: See Comments IbuprofenGI intolerance,NoubfpmMkbbjg56/03/2016 Other reaction(s): GI Disturbance Other Reaction(s): GI Disturbance, GI Upset, Other (See Comments), Unknown, vomiting Other reaction(s): GI Disturbance PenicillinsHives,WikvQvfe12/03/2016PrednisoneHives,Unknown,Palpitations, Shortness of breath,TdtbnvfkEfyy67/03/2016 All related All related Jittery -mainly with IV doses, heart rate goes up with oral. prednisone Jittery -mainly with IV doses, heart rate goes up with oral. Medications MedicationSigDispense QuantityRefillsLast FilledStart DateEnd DateStatus baclofen (Lioresal) 10 mg tablet Take 10 mg by mouth three times daily.Active albuterol 90 mcg/actuation inhaler Inhale 2 puffs every 6 (six) hours if needed.5Active calcium 500 mg calcium (1,250 mg) tablet Take 1 tablet by mouth in the morning, afternoon, and at bedtime.06/16/2019 Active cetirizine (ZyrTEC) 10 mg tablet Take 10 mg by mouth in the morning.05/13/2023ctive cholecalciferol (Vitamin D-3) 50 MCG (2000 UT) tablet 2,000 Units in the morning.06/16/2019Active omeprazole (PriLOSEC) [address] capsule Take 20 mg by mouth before breakfast.06/30/2023ctive Arnuity Ellipta 100 mcg/actuation inhaler Inhale 1 puff in the morning.Active fluticasone (Flonase) 50 mcg/actuation nasal spray Administer 1 spray into each nostril in the morning.Active hydrOXYzine HCL (Atarax) 10 mg tablet Take 10 mg by mouth 1 (one) time.05/22/2019Active meclizine (Antivert) 12.5 mg tablet Take 12.5 mg by mouth if needed in the morning, at noon, and at bedtime. 11/29/2024tive mirtazapine (Remeron) 15 mg tablet Take 15 mg by mouth at bedtime.07/08/2023ctive oxyCODONE-acetaminophen (Percocet) 5-325 mg tablet Take 1 tablet by mouth every 4 (four) hours if needed.Active pregabalin (Lyrica) 100 mg capsule Take 100 mg by mouth three times daily.Active rosuvastatin (Crestor) 10 mg tablet Take 10 mg by mouth in the morning.11/30/2022ctive venlafaxine XR (Effexor-XR) 150 mg 24 hr capsule Take 150 mg by mouth in the morning.05/17/2019Active diclofenac (Voltaren) 75 mg EC tablet Take 1 tablet by mouth if needed in the morning and at bedtime for pain. 05/09/2025tive lisinopril 10 mg tablet Take 5 mg by mouth in the morning.05/09/2025tive tiZANidine (Zanaflex) 4 mg tablet Take 4 mg by mouth if needed in the morning, at noon, and at bedtime.12/18/2023 06/06/2025Discontinued(Therapy completed) Active Problems ProblemNoted DateDiagnosed DateLow HDL (under 40)05/10/2025Persistent asthma without ometqodcjbjo17/09/2025Gastroesophageal reflux slhejca1401/30/2025Dizziness 12/23/2024Dysfunction of right eustachian tube12/23/2024Non-suppurative otitis media12/23/2024Other specified injuries of right shoulder and upper arm, sequela 12/23/2024Sensorineural hearing loss, ozhhessgn28/25/2025Hypotension due to pfwpioorcia45/01/2025Orthostatic zphcawusebl91/01/2025Snuff user11/29/2024KI (acute kidney injury)11/28/2024lass 1 obesity due to excess calories with serious comorbidity and body mass index (BMI) of 30.0 to 30.9 in adult02/09/2024 Peyronie's xzbqlmr4907/15/2023 Overview (01/30/2025): 07/15/23 Having pain no curvature. Acute phase plaque. Already on Voltaren can not add Mobic on top of this.Recommend abstaining from intercourse until pain resolves. Will readdress at follow-up 03/08/24: persistent pain with erection. Reassured that this will typically resolve with a little more time Lower urinary tract gttrltat28/06/2023 Overview (01/30/2025): 07/15/23 Again discussed bladder irritants I think the T is really bothering him. However will plan to startDitropan and continue Flomax. Follow-up in 6 weeks Start flomax f/u 6 weeks Pvr 33mL IPSS 23/4 Lower urinary tract symptoms without any substantial improvement with tamsulosin or with the addition of oxybutynin extended release. Plan for cysto under anesthesia with possible dilation should a stricture be present Encounter for screening for malignant neoplasm of mehttxjn54/06/2023ost- traumatic osteoarthritis of both knees3Chronic manaedm7007/01/2022 Electrocardiogram szwramsm89/01/8167Bggkvyjdcrju98/01/2022Mixed hyperlipidemia 08/28/2020Low vitamin D level02/23/2020Multiple cutaneous and mucosal venous ledwyztpoooen25/29/2020Polyp of sigmoid colon09/28/2019Rectal hemorrhage 09/16/20197947Rlmbrlgzgctx18/18/3725Mfnmndjfmhj20/03/0237Cpybyyvda46/28/2019 Essential gfneiricnzgm76/19/2019Hypertrophy of fat pad of knee07/20/2018Tear of medial meniscus of knee07/20/2018Contusion of knee11/11/2017Sprain of knee 11/11/2017Depressive geazvbce05/02/2018Cervical /07/2017 Uvxhxfissifuav05/19/2017Obstructive sleep apnea necjioiz93/09/2017Fibromyalgia 08/12/2016Shoulder pain08/12/2016Impingement syndrome of shoulder region 08/07/2016Chondromalacia of zivlmuz4707/03/2016Primary osteoarthritis of right knee07/03/2016 Encounters DateTypeDepartmentCare QacuOlchdnywpoy67/08/2025Orders Only [facility] [address] [place] [address] ProviderKaran MD 06/06/2025 3:30 PM EDTOffice Visit [facility] [address] [place] [facility] [place] [address] Marek Butterfield MD Syncope and collapsefrom Last 3 Months Family History Medical HistoryRelationNameCommentsDiabetesFatherProstate cancerFather FibromyalgiaMotherIrritable bowel syndromeMotherThyroid diseaseMotherconnective tissue diseaseMotherSeizuresSisterThyroid diseaseSisterRelationNameStatus CommentsFatherAliveMotherAliveSister Social History Tobacco UseTypesPacks/DayYears UsedDateSmoking Tobacco: NeverPassive Smoke Exposure: NeverSmokeless Tobacco: Never Tobacco Cessation:Counseling Given: Yes Comments:snuff Alcohol UseStandard Drinks/WeekCommentsNever0 (1 standard drink = 0.6 oz pure alcohol)NM Safety & EnvironmentAnswerDate RecordedFear of Current or Ex-Partner Not on file10/22/2023Emotionally AbusedNot on file10/22/2023hysically AbusedNot on file10/22/2023Sexually AbusedNot on file10/22/2023hysically or Sexually AbusedNot on file10/22/2023Sex and Gender InformationValueDate RecordedSex Assigned at BefmtShle11/21/2025 8:25 AM EDTLegal AetErdc9502/26/2022 10:29 PM EDT Gender TproacmpEhhd76/21/2025 8:25 AM EDTSexual OrientationHeterosexual or Joeehxyp83/21/2025 8:25 AM EDT Last Filed Vital Signs Vital SignReadingTime TakenCommentsBlood Cxygjcwc523/8706/06/2025 3:18 PM EDT Ucivc426406/06/2025 3:18 PM EDTTemperature--Respiratory Rate--Oxygen Kwyxqxjahi72% 06/06/2025 3:18 PM EDTInhaled Oxygen Concentration--Ifmuri33 kg (205 lb) 06/06/2025 3:18 PM ZQTCmrclw190.7 cm (5' 8 )06/06/2025 3:18 PM EDTBody Mass Index31.171 3:18 PM EDT Plan of Treatment Health MaintenanceDue DateLast DoneCommentsCT Gutfvpdqmzxd81/09/1977Colonoscopy 1976Colorectal Cancer Vmtgztcli54/09/1977FIT-DNA1976FIT1976 FOBT1976Medicare Annual Wellness (AWV)1976 4014Evvqnvojauect52/09/1977 Depression Ndawlqdur34/09/1989Pneumococcal Vaccine: Pediatrics (0 to 5 Years) and At-Risk Patients (6 to 64 Years) (1 of 2 - PCV)1995COVID-19 Vaccine ( season), 12/14/2020, 11/16/2020Influenza Vaccine (#1)/, 08/27/2019, 06/13/2019, Additional history existsAdult Slwsfwj91//08/2015Zoster Vaccines (1 of 2)2026Hepatitis B IvecprhcJwigxhxfh19/28/2014, 09/26/2013, 07/27/2013HIB VaccinesAged OutNo longer eligible based on patient's age to complete this topicHPV VaccinesAged OutNo longer eligible based on patient's age to complete this topicIPV VaccinesAged OutNo longer eligible based on patient's age to complete this topicMeningococcal B VaccineAged OutNo longer eligible based on patient's age to complete this topicMeningococcal VaccineAged OutNo longer eligible based on patient's age to complete this topicRotavirus VaccinesAged OutNo longer eligible based on patient's age to complete this topic Insurance Care Teams Team MemberRelationshipSpecialtyStart DateEnd Date Rodrick Ramires DO [address] [facility] [place] [address] [facility] - [facility]01/30/25
--- OUTSIDE RECORDS SUMMARY | 2025-07-05 13:21 | XMS_ITS | Clinical Summary ---
Author Organization [facility] Address [address] [place] [address] Care Team Providers Care Airplane And Engine Inspector Name Role Phone Rodrick Ramires MD Primary Care Provider + [phone] Allergies Active AllergyReactionsCriticalityNoted DateCommentsCorn OilDiarrhea,Nausea And DdkvfuwbAwapxl04/03/2016 Other Reaction(s): Other: See Comments Other reaction(s): Other: See Comments MadoqcaztZoakxl90/03/2016 Other Reaction(s): GI Disturbance, GI Upset, Other (See Comments), Unknown, vomiting Other reaction(s): GI Disturbance PenicillinsHives,IccoFbxmvg57/03/2016PrednisoneHives,Other,Shortness of breath, Swelling,Palpitations,EtgnqorGllu48/03/2016 All related Jittery -mainly with IV doses, heart rate goes up with oral. prednisone Medications MedicationSigDispense QuantityRefillsLast FilledStart DateEnd DateStatus albuterol (2.5 MG/3ML) 0.083% nebulizer solution Active albuterol HFA 90 mcg/act inhaler Inhale 2 puffs every 6 (six) hours if [id number] atorvastatin (Lipitor) 10 MG tablet Active baclofen (Lioresal) 10 MG tablet Active calcium citrate (Calcitrate) 950 (200 Ca) MG tablet Take 1,900 mg by mouth in the morning and 1,900 mg in the evening and 1,900 mg before bedtime.Active cetirizine (ZyrTEC) 10 MG tablet Take 10 mg by mouth in the morning.Active cholecalciferol (Vitamin D-3) 50 MCG (1999) tablet Take by mouth DailyActive diazePAM (Valium) 10 MG tablet TAKE 1 TABLET BY MOUTH PRIOR TO APNLTQWWG63/13/2024ctive Docusate Sodium (DSS) 100 MG capsule Take 1 capsule by mouth DailyActive mirtazapine (Remeron) 15 MG tablet Take 15 mg by mouth in the morning.12/19/2024tive omeprazole (PriLOSEC) [address] capsule TAKE 1 CAPSULE BY MOUTH EVERY DAY IN THE MORNING BEFORE JKLVZNTMZ42/09/2025 Active oxyCODONE-acetaminophen (Percocet) 5-325 MG tablet Take 1 tablet by mouth 3 (three) times a day as neededActive pregabalin (Lyrica) 50 MG capsule Take 50 mg by mouth in the morning and 50 mg before bedtime.Active traZODone (Desyrel) 50 MG tablet 1 (one) time each day at the same timeActive venlafaxine XR (Effexor XR) 150 MG 24 hr capsule Take 150 mg by mouth in the morning.12/07/2024tive hydrOXYzine HCl (Atarax) 10 MG tablet 09/09/2024tive meclizine (Antivert) 12.5 MG tablet Take 12.5 mg by mouth 3 (three) times a day as dmkcyv5511/29/2024tive Active Problems ProblemNoted DateDiagnosed DateScreening for diabetes /25/2025nxiety 12/23/20248087Zesgqybzw74/25/2025Dysfunction of right eustachian tube12/23/2024Non- suppurative otitis media12/23/2024Sensorineural hearing loss, bilateral 12/23/2024Other specified injuries of right shoulder and upper arm, sequela 12/23/2024Hypotension due to /01/2025Snuff user11/29/2024KI (acute kidney injury)11/28/2024lass 1 obesity due to excess calories with serious comorbidity and body mass index (BMI) of 30.0 to 30.9 in adult02/09/2024 Peyronie's wzynffy2007/15/2023 Overview (12/23/2024): 07/15/23 Having pain no curvature. Acute phase plaque. Already on Voltaren can not add Mobic on top of this.Recommend abstaining from intercourse until pain resolves. Will readdress at follow-up 03/08/24: persistent pain with erection. Reassured that this will typically resolve with a little more time Lower urinary tract adztmpts30/06/2023 Overview (12/23/2024): 07/15/23 Again discussed bladder irritants [...] stricture be present Post-traumatic osteoarthritis of both knees03/25/2023Sprain of shoulder and upper arm03/25/2023hronic fkizpzj1507/01/2022Electrocardiogram kxpzsife91/01/2022 Etukjqwajggj27/01/2022Mixed orzeeapvwnbora27/29/2020Low vitamin D level 02/23/2020Polyp of sigmoid colon09/28/2019Rectal wfuqhoqmln79/17/2020 Yrnpahvmxuss27/18/0967Mflpxjzxvcd96/03/8415Qjexkndcs77/28/2019Essential ujjznjcldpob55/19/2019Tear of medial meniscus of knee07/20/2018Contusion of knee 11/11/2017Knee joint elnlmzqf76/14/2018Sprain of knee11/11/2017Depressive lqvgdhre32/02/2018Cervical iicsrozjgjfht24/07/0752Wjkbtpdkaifayk57/19/2017 Obstructive sleep apnea /09/0530Higcaukpmudv95/13/2016Shoulder pain 08/12/2016Impingement syndrome of shoulder hmdqmi4708/07/2016Chondromalacia of ravglld5807/03/2016Primary osteoarthritis of right knee07/03/2016 Immunizations ImmunizationAdministration DatesNext DueHep B, adult01/25/2014,09/26/2013, 07/27/2013Influenza, injectable, MDCK, preservative free, fllytyemmcex71/20/2021 ,08/27/2019,09/11/2017Influenza, injectable, quadrivalent, preservative free 06/11/2018Influenza, seasonal, qcutjwedni33/14/2019Influenza, seasonal, injectable, preservative free08/21/2015Tdap11/30/2015 Social History Tobacco UseTypesPacks/DayYears UsedDateSmoking Tobacco: NeverSmokeless Tobacco: CurrentChew Tobacco Cessation:Ready to Q uit: Not Asked; Counseling Given: Not Answered Alcohol UseStandard Drinks/WeekCommentsNot Currently0 (1 standard drink = 0.6 oz pure alcohol)Sex and Gender InformationValueDate RecordedSex Assigned at Not on fileLegal AfqAfzp7311/12/2022 7:34 PM EDTGender IdentityNot on fileSexual OrientationNot on file Last Filed Vital Signs Vital SignReadingTime TakenCommentsBlood Zbbpixog570/8401/17/2025 11:19 AM EDT Ijslo582901/17/2025 11:19 AM XMKVlurcojetoc98.7 ??C (98 ??F)12/15/2024 11:04 AM EDTRespiratory Gavi539912/23/2024 9:21 AM EDTOxygen Sffpihjzpm23%12/23/2024 9:21 AM EDTInhaled Oxygen Concentration--Vcglau97 kg (205 lb)01/17/2025 11:19 AM EDT Yfxafa355.2 cm (5' 7 )01/17/2025 11:19 AM EDTBody Mass Index32.11001/17/2025 11:19 AM EDT Plan of Treatment Health MaintenanceDue DateLast DoneCommentsCT Zpbqixeclpdb51/09/1977Colonoscopy 1976Colorectal Cancer Cxfzggzrl86/09/1977FIT-DNA1976FIT1976 FOBT1976 7068Nsegdntslvqrq82/09/1977COVID-19 Vaccine ( season) , 12/14/2020, 11/16/2020Influenza Vaccine (#1)2025 08/19/2021, 08/27/2019, 06/13/2019, Additional history existsPneumococcal Vaccine: Pediatrics (0 to 5 Years) and At-Risk Patients (6 to 64 Years)Aged Out No longer eligible based on patient's age to complete this topic Insurance Care Teams Team MemberRelationshipSpecialtyStart DateEnd Date Rodrick Ramires MD [address] [facility], [place] [address] PCP - GeneralFamily Medicine12/27/24
--- OUTSIDE RECORDS SUMMARY | 2025-07-05 13:23 | XMS_ITS | CCD ---
Author Organization [facility] Care Team Providers Care Electronic Technologist Name Role Phone RODRICK RICHARDSON Primary Care [...] ., NARENDLEEATH Attending Sherie vailable LAKSHMIPATHY ., KYLEATH Admitting Sherie vailable Greta Lockhart Consulting Unavailable FURLONG, DR RODRICK Bryan Primary Care Unavailable LAKSHMIPATHY ., JAIME Consulting Sherie vailable SCHALIIN, DR JEFFERS Attending Unavailable MARIAM, DR JEFFERS Admitting Unavailable Greta Lockhart Consulting Unavailable FURLONG, DR RODRICK Bryan Primary Care Unavailable SCHLISERENAER, DR JEFFERS Consulting Unavailable ANGELOLORODRICK PULIDO Primary Care Unavailable MUHALEIGHI, MARY Referring Unavailable Erma SALAZAR, Karissa Lopez Attending Unavailable Erma SALAZAR, Androwdy Lopez Attending Unavailable Erma SALAZAR, Karissa Lopez Attending Unavailable MUFTI, MARY Referring Unavailable MARY MONZON Attending Unavailable RODRICK RICHARDSON Primary Care Unavailable Furlong Rodrick MATAMOROS Primary Care Provider [phone] Furlong Rodrick MATAMOROS Primary Care Provider RODRICK RICHARDSON Primary Care Unavailable YON LIRA Attending Unavailable YON LIRA Referring Unavailable Furlong Rodrick MATAMOROS Primary Care Provider RODRICK RICHARDSON Referring Unavailable ANGELOLORODRICK PULIDO Primary Care Unavailable ANGELOLORODRICK PULIDO Referring Unavailable FURLONGRODRICK Primary Care Unavailable Unavailable Primary Care Provider Rodrick Noriega MD Primary Care Provider LUCIANA ESCOTO Attending Unavailable LUCIANA ESCOTO Referring Unavailable EDDIES, SUSAN H Attending Unavailable RODRICK RICHARDSON Referring Unavailable TIMMIS, SUSAN H Attending Unavailable LUCIANA ESCOTO Attending Unavailable RODRICK RICHARDSON Referring Unavailable FURLONGRODRICK Primary Care Unavailable RODRICK RICHARDSON Referring Unavailable FURLONGRODRICK Primary Care Unavailable RODRICK RICHARDSON Referring Unavailable FURLONG, RODRICK Bryan Primary Care Unavailable FURLONGRODRICK Referring Unavailable FURLONG, RODRICK Bryan Primary Care Unavailable DELTA REN Attending Unavailable DELTA REN Referring Unavailable FURLONG, RODRICK G Primary Care Unavailable DELTA REN Referring Unavailable FURLONG, RODRICK G Primary Care Unavailable CHIKIS SUZANNE Referring Unavailable FURLONG, RODRICK G Primary Care Unavailable FURLONG, RODRICK G Primary Care Unavailable JEOVANY BERRY Bernie Admitting Unavailable JEOVANY BERRY U Attending Unavailable FURLONG, RODRICK G Attending Unavailable [...] Unavailable FURLONG, RODRICK G Primary Care Unavailable KARLUKARBKAI WEBBER Referring Unavailable FURLONG, RODRICK G Primary Care Unavailable MOUKARBKAI WEBBER Referring Unavailable FURLONG, RODRICK G Primary Care Unavailable KAI UMANZOR Referring Unavailable KODAK SWANSON Attending Unavailable KAI UMANZOR Referring Unavailable KAI UMANZOR Attending Unavailable Furlong Rodrick MATAMOROS Primary Care Provider Em Appiah APRN Attending Provider [phone] Furlong Rodrick MATAMOROS Primary Care Provider Em Appiah Attending Unavailable Em Appiah Admitting Unavailable Furlong, Rodrick Primary Care Unavailable FURLONG, RODRICK Bryan Referring Unavailable FURLONG, RODRICK G Primary Care Unavailable FURLONG, RODRICK G Attending Unavailable FURLONG, RODRICK G Referring Unavailable FURLONG, RODRICK G Primary Care Unavailable FURLONG, RODRICK G Attending Unavailable FURLONG, RODRICK G Referring Unavailable FURLONG, RODRICK G Primary Care Unavailable NORI MCCOY Attending Unavailable FURLONG, RODRICK G Attending Unavailable FURLONG, RODRICK G Referring Unavailable FURLONG, RODRICK G Primary Care Unavailable FURLONG, RODRICK G Attending Unavailable FURLONG, RODRICK G Referring Unavailable RODRICK RICHARDSON Primary Care Unavailable Allergies Allergy ClassificationReported Allergen(s)Allergy TypeDate of OnsetReaction(s) Facility (20 sources)corn extract; Translations: [CORN]Drug Hmlpsna90-27-8564LgdpmsjcPfm [facility] Repository (20 sources)Ibuprofen; Translations: [IBUPROFEN]Drug Yfjgcdt93-74-5917[place] Disturbance, Other (See Comments)[facility] Repository (8 sources)Penicillins; Translations: [PENICILLINS]Drug allergy (disorder) 51-58-5140Bucwwas ReactionThe [facility] Repository (20 sources)predniSONE; Translations: [PREDNISONE]Drug Nmrskac56-71-3548 Tachycardia, Hives, Shortness Of Breath, Swelling, Other (See Comments), Other, Palpitations, UnknownThe [facility] Repository (1 source)[place] Containing ProductsDrug allergy (disorder)[facility] (20 sources)PenicillinsPropensity to adverse reactions to cdtk25-59-4347[place]caph, CertifyMount Ascutney HospitalAeria Games & Entertainment System (10 sources)[place] Oil; Translations: [CORN OIL]Drug Oxpqavk08-48-1343Gulwgvdp, Nausea And VomitingHealthsouth Medical CenterInnotech Solar Phone: (20 sources)PenicillinsPropensity to adverse reactions to spvx58-66-1098Rjmaa [facility] Medical CenterBeroomers (10 sources)PenicillinsDrug Gzrtqtd87-54-6440QwqjzFulton Medical Center- [facility] (3 sources)prednisoLONE; Translations: [prednisolone]Drug Awyhuqq70-03-0564 increased HR, [facility]Kn[facility] (1 source)PenicillinsDrug allergy (disorder)47-74-3734TdmccwkrmKnox Community Hospital Repository Medications Current Medications MedicationDrug Class(es)DatesSig (Normalized)Sig (Original)acetaminophen 325 mg / oxyCODONE hydrochloride 5 mg oral tablet (20 sources)Opioid AgonistStart: 20-45-0656Lpyrm: 66-83-2560rcam 1 tablet by mouth every six hours as neededoxyCODONE-acetaminophen (PERCOCET) 5-325 MG per tablet Take 1 tablet by mouth every 6 hours as needed. 0 07/15/2019 Activetake 1 tablet by mouth three times daily as neededoxyCODONE-acetaminophen (Percocet) 5-325 MG tablet Take 1 tablet by mouth 3 (three) times a day as needed Active take 1 tablet by mouth every four hours as needed for painoxyCODONE- acetaminophen (PERCOCET) 5-325 mg per tablet Take 1 tablet by mouth every 4 (four) hours as needed for pain. [id number] 200 actuat albuterol 0.09 mg/actuat metered dose inhaler (20 sources)beta2-Adrenergic AgonistStart: 71-65-9226cdaq 2 puff(s) by mouth every six hours as neededalbuterol (PROVENTIL HFA;VENTOLIN HFA) 90 mcg/actuation inhaler Indications: Asthma, unspecified asthma severity, unspecified whether complicated, unspecified whether persistent TAKE 2 PUFFS BY MOUTHEVERY 6 HOURS NEEDED FOR WHEEZE 8.5 g 1 05/08/2025 ActiveStart: 01-25-2025 End: 93-53-8722iefx 2 puff(s) by inhalation every six hours as needed for wheezingalbuterol (PROVENTIL HFA;VENTOLIN HFA) 90 mcg/actuation inhaler Indications: Asthma, unspecified asthma severity, unspecified whether complicated, unspecified whether persistent INHALE 2 PUFFS EVERY 6 HOURS NEEDED FOR WHEEZING 8 g 1 01/25/2025 05/08/2025 DiscontinuedStart: 12-15-2024 take 2 puff(s) by inhalation every six hoursalbuterol HFA 90 mcg/act inhaler Inhale 2 puffs every 6 (six) hours if needed 12/15/2024 ActiveStart: 12-15-2024 End: 14-98-4348relt 2 puff(s) by inhalation every six hours as needed for wheezingalbuterol (PROVENTIL HFA;VENTOLIN HFA) 90 mcg/actuation inhaler Indications: Asthma, unspecified asthma severity, unspecified whether complicated, unspecified whether persistent Inhale 2 puffs every 6 (six) hours as needed for wheezing. 18 g 1 12/15/2024 01/25/2025 Discontinuedalbuterol (2.5 MG/3ML) 0.083% nebulizer solution Active End: 88-20-2592jpvn 2 puff(s) by inhalation every six hours as needed for wheezingalbuterol (PROVENTIL HFA;VENTOLIN HFA) 90 mcg/actuation inhaler Inhale 2 puffs every 6 (six) hours as needed for wheezing. 12/15/2024 Discontinued (Reorder)atorvastatin 10 mg oral tablet (10 sources)HMG-CoA Reductase Inhibitoratorvastatin (Lipitor) 10 MG tablet Activebaclofen 10 mg oral tablet (20 sources)gamma-Aminobutyric Acid-ergic AgonistStart: 17-81-5455uozvjcae (LIORESAL) 10 mg tablet 02/28/2025 ActiveStart: 03-17-2023 End: 81-40-1153lcoaibaf (LIORESAL) 20 mg tablet 03/17/2023 12/15/2024 Discontinued (Therapy completed)baclofen (Lioresal) 10 MG tablet Activecalcium carbonate 1250 mg oral tablet (1 source)Start: 27-74-4737lmeh 1 tablet by mouth three times dailycalcium elemental (OSCAL) 500 MG TABS tablet TAKE ONE TABLET BY MOUTH THREE TIMES DAILY 3 06/16/2019 Activecalcium citrate 950 mg oral tablet (20 sources)Start: 87-01-4712njzx 2 tablets by mouth three times dailycalcium citrate (CALCITRATE) 200 mg (950 mg) tablet Indications: Arthrodesis status TAKE 2 TABLETS BY MOUTH 3 TIMES A DAY 540 tablet 1 10/30/2022 ActiveStart: 42-52-4530jtqz 1 tablet by mouth twice dailycalcium citrate (CALCITRATE) 950 (200 Ca) MG tablet Take 1 tablet by mouth 2 times daily 10/30/2022ctivetake 1 tablet by mouth in the morning, then take 1 tablet by mouth in the evening, then take 1 tablet by mouth at bedtimecalcium citrate (Calcitrate) 950 (200 Ca) MG tablet Take 1,900 mg by mouth in the morning and 1,900mg in the evening and 1,900 mg before bedtime. Activecetirizine hydrochloride 10 mg oral tablet (20 sources)Histamine-1 Receptor AntagonistStart: 58-80-9185ncrl 1 tablet by mouth once dailycetirizine (ZYRTEC) 10 MG tablet Take 1 tablet by mouth daily 05/13/2023 Activecholecalciferol 0.05 mg oral tablet (20 sources)Vitamin DStart: 58-58-3574pmgu 1 tablet by mouth once daily Cholecalciferol (VITAMIN D) 50 MCG (2000 UT) TABS tablet TAKE ONE TABLET BY MOUTH EVERY DAY 3 06/16/2019 Activecholecalciferol, vitamin D3, 2,000 units tablet Activeciprofloxacin 500 mg oral tablet (1 source)Quinolone AntimicrobialStart: 15-03-4758cert 1 tablet by mouth every twelve hoursciprofloxacin (CIPRO) 500 MG tablet take 1 tablet by mouth every 12 hours 0 07/10/2019 Activeciprofloxacin 3 mg/ml / dexamethasone 1 mg/ml otic suspension (2 sources)Corticosteroid, Quinolone AntimicrobialStart: 12-27-2024 End: 81-91-6613ctdbvvfkqdgrl-dexAMETHasone (CiproDEX) otic suspension Indications: Chronic myringitis of right earAdminister 4 drops into the right ear in the morning and 4 drops before bedtime. Do all this for 10days. 7.5 mL 12/27/2024 01/06/2025 Activeclindamycin 300 mg oral capsule (2 sources)Lincosamide AntibacterialStart: 05-79-4113zogm 1 capsule by mouth three times dailycyclobenzaprine hydrochloride 5 mg oral tablet (1 source)Muscle RelaxantStart: 57-62-4956zekr 1 tablet by mouth three times daily as needed for muscle spasmscyclobenzaprine (FLEXERIL) 5 MG tablet TAKE ONE TABLET BY MOUTH THREE TIMES DAILY NEEDED FOR MUSCLE SPASMS 0 06/16/2019 ActivediazePAM 10 mg oral tablet (13 sources)BenzodiazepineStart: 20-62-6908Eqzzmlnq Active MG PO June 06, 2024 12:00amStart: 71-06-9197mqxjmzqwid sodium 75 mg delayed release oral tablet (20 sources)Nonsteroidal Anti-inflammatory DrugStart: 38-83-2006Davbjmumtn Sodium Active MG PO June 06, 2024 12:00amStart: 83-77-8948cgph 1 tablet by mouth in the morning, then take 1 tablet by mouth at mealtimediclofenac (VOLTAREN) 75 mg EC tablet Take 1 tablet (75 mg total) by mouth in the morning and 1 tablet (75 mg total) in the evening. Take with meals. 06/05/2022 Active docusate sodium 100 mg oral capsule (20 sources)Start: 16-28-3994ougw 1 capsule by mouth once dailySTOOL SOFTENER 100 mg capsule Indications: Constipation, unspecified TAKE 1 CAPSULE BY MOUTH EVERY DAY 30 capsule 5 05/06/2022 Activefamotidine 20 mg oral tablet (1 source)Histamine-2 Receptor AntagonistStart: 65-35-3400gofb 1 tablet by mouth once dailyfamotidine (PEPCID) 20 MG tablet Take 1 tablet by mouth daily 0 04/25/2019 Elsbjk43 actuat fluticasone furoate 0.1 mg/actuat dry powder inhaler (19 sources)CorticosteroidStart: 07-28-0663flwf 1 puff(s) by inhalation in the morningfluticasone furoate (ARNUITY ELLIPTA) 100 mcg/actuation blister with device INHALE 1 PUFF IN THE MORNING 30 each 5 07/03/2025 ActiveStart: 12-26-2024 End: 80-33-3779asha 1 puff(s) by inhalation in the morningfluticasone furoate (ARNUITY ELLIPTA) 100 mcg/actuation blister with device Inhale 1 puff in the mor gurwinder. 30 each 5 12/26/2024 07/03/2025 Discontinuedfluticasone (FLONASE) 50 MCG/ACT nasal spray ActivehydroCHLOROthiazide 12.5 mg / lisinopril 20 mg oral tablet (20 sources)Thiazide Diuretic, Angiotensin Converting Enzyme InhibitorStart: 07-79-5325Kxjew: 07-08-2023 End: 73-97-2018jcsk 1 tablet by mouth once dailylisinopril-hydroCHLOROthiazide (PRINZIDE,ZESTORETIC) 20-12.5 mg per tablet Indications: Essential (primary) hypertension take 1 tablet by mouth every day 90 tablet 1 03/15/2024 Active hydrOXYzine hydrochloride 10 mg oral tablet (20 sources)AntihistamineStart: 97-09-2450Hanrqqvfzci Hcl Active MG PO June 06, 2024 12:00amStart: 05-22-2019 End: 36-41-5599ascd 1 tablet by mouth once dailyhydrOXYzine (ATARAX) 10 mg tablet Indications: Urticaria, unspecified TAKE 1 TABLET BY MOUTH EVERY DAY AT NIGHT 90 tablet 1 02/23/2025 Activeketoconazole 20 mg/ml topical cream (20 sources)Azole AntifungalStart: 60-16-0414fyaysjhqjelg (NIZORAL) 2 % cream Apply 1 Application topically in the morning. 30 g 1 06/29/2025 ActiveStart: 54-04-4922coqqsdtpshtk (NIZORAL) 2 % shampoo 04/11/2023 ActiveStart: 04-11-2023 ketoconazole (NIZORAL) 2 % shampoo APPLY TOPICALLY 3 TIMES A WEEK 04/11/2023 Activeketorolac tromethamine 10 mg oral tablet (1 source)Nonsteroidal Anti-inflammatory Drug, Cyclooxygenase InhibitorStart: 11-87-1821iylq 1 tablet by mouth every six hours as needed for painketorolac (TORADOL) 10 MG tablet Take 1 tablet by mouth every 6 hours as needed for Pain 10 tablet 07/18/2019 Activelidocaine hydrochloride 20 mg/ml mucous membrane topical solution (2 sources)Antiarrhythmic, Amide Local AnestheticStart: 32-18-3422zygytmrtuy 10 mg oral tablet (12 sources)Angiotensin Converting Enzyme InhibitorStart: 60-69-4850yqzz 0.5 tablet by mouth in the morninglisinopriL (PRINIVIL,ZESTRIL) 10 mg tablet Take 0.5 tablets (5 mg total) by mouth in the morning. 15 tablet 11 05/09/2025 Active Start: 05-09-2025 End: 43-67-1216dsce 1 tablet by mouth in the morninglisinopriL (PRINIVIL,ZESTRIL) 20 mg tablet Take 1 tablet (20 mg total) by mouth in the morning. 30 tablet 5 05/09/2025 05/09/2025 Discontinued (Dose adjustment)Start: 04-11-2025 End: 55-90-1912tjio 1 tablet by mouth in the morninglisinopriL (PRINIVIL,ZESTRIL) 10 mg tablet TAKE 1 TABLET (10 MG TOTAL) BY MOUTH IN THE MORNING 90 tablet 1 05/04/2025 05/09/2025 Discontinued (Dose adjustment) meclizine hydrochloride 12.5 mg oral tablet (20 sources)AntiemeticStart: 93-90-5755isax 1 tablet by mouth three times daily as needed for dizzinessmeclizine (ANTIVERT) 12.5 mg tablet Take 1 tablet (12.5 mg total) by mouth 3 (three) times a day asneeded for dizziness. 30 tablet 11/29/2024 ActivemethylPREDNISolone 4 mg oral tablet (3 sources)CorticosteroidStart: 15-25-2424Qdwrr: 93-63-1336Hcsmyiufvhwubbnmso Active MG PO June 06, 2024 12:00ammirtazapine 15 mg oral tablet (20 sources)Start: 40-46-6955Qhtbnnnzqzd Active MG PO June 06, 2024 12:00am Start: 07-08-2023 End: 37-96-5385bggr 1 tablet by mouth once dailymirtazapine (REMERON) 15 mg tablet Indications: Insomnia, unspecified TAKE 1 TABLET BY MOUTH EVERY DAY 90 tablet 1 05/08/2025 Activeomeprazole 20 mg delayed release oral capsule (20 sources)Proton Pump InhibitorStart: 78-26-3227Nwzvjsyefl Active MG PO June 06, 2024 12:00amStart: 03-31-2023 End: 61-10-6284ejed 1 capsule by mouth once daily before breakfastomeprazole (PriLOSEC) 20 mg capsule Indications: Gastro-esophageal reflux disease without esophagitis TAKE 1 CAPSULE BY MOUTH EVERY DAY IN THE MORNING BEFORE BREAKFAST 90 capsule 05/08/2025 Cyuomp71 hr oxybutynin chloride 10 mg extended release oral tablet (20 sources)Cholinergic Muscarinic AntagonistStart: 83-05-6559uefb 1 tablet by mouth every twenty-four hoursStart: 82-83-3187Niztvjeksu Chloride Active MG PO June 06, 2024 12:00amStart: 04-10-2024 End: 08-70-8533zfzy 1 tablet by mouth once daily in the morningoxybutynin XL (DITROPAN-XL) 10 mg 24 hr tablet TAKE 1 TABLET BY MOUTH EVERY DAY IN THE MORNING 90 tablet 1 10/07/2024 02/06/2025 Discontinued (Therapy completed)Start: 07-15-2023 End: 48-55-3449vkcu 1 tablet by mouth every twenty-four hours in the morning oxybutynin XL (DITROPAN-XL) 10 mg 24 hr tablet TAKE 1 TABLET BY MOUTH IN THE MORNING 90 tablet 1 10/30/2023 Activepregabalin 100 mg oral capsule (20 sources)Start: 24-63-0639Wrwuzezxzn Active MG PO June 06, 2024 12:00am Start: 37-63-8396kjbu 1 capsule by mouth four times dailypregabalin (LYRICA) 100 mg capsule Take 1 capsule (100 mg total) by mouth. 4 times a day Active End: 72-03-0681hgiw 1 capsule by mouth in the morning, then take 1 capsule by mouth at bedtimepregabalin (LYRICA) 200 mg capsule Take 1 capsule (200 mg total) by mouth in the morning and 1 capsule (200 mg total) before bedtime. 02/06/2025 Discontinued (Dose adjustment)take 1 capsule by mouth in the morningpregabalin (Lyrica) 50 MG capsule Take 50 mg by mouth in the morning and 50 mg before bedtime. Active End: 64-99-0766zkyatohkpl (LYRICA) 50 mg capsule Take 2 capsules (100 mg total) by mouth in the morning and 2 capsules (100 mg total) at noon and 2 capsules (100 mg total) before bedtime. 12/15/2024 Discontinued (Dose adjustment) rosuvastatin calcium 20 mg oral tablet (20 sources)HMG-CoA Reductase InhibitorStart: 74-89-5770cmqx 1 tablet by mouth once dailyrosuvastatin (CRESTOR) 20 mg tablet Take 1 tablet (20 mg total) by mouth nightly. 05/10/2025 ActiveStart: 17-54-5083Uswmnlayycjt Active MG PO June 06, 2024 12:00amStart: 11-30-2022 End: 10-68-5367keKDEdenwf 4 mg oral tablet (20 sources)Central alpha-2 Adrenergic AgonistStart: 16-20-4368Ddlemdtwtw Active MG PO June 06, 2024 12:00amStart: 12-18-2023 End: 87-77-2233Aakun: 96-70-0709epDWHpyiim (ZANAFLEX) 4 mg tablet Take 1 tablet (4 mg total) by mouth. 12/18/2023 ActivetraZODone hydrochloride 50 mg oral tablet (10 sources)Serotonin Reuptake InhibitortraZODone (Desyrel) 50 MG tablet 1 (one) time each day at the same time Yzbfno86 hr venlafaxine 150 mg extended release oral capsule (20 sources)Serotonin and Norepinephrine Reuptake InhibitorStart: 06-06-2024 Venlafaxine Active MG PO June 06, 2024 12:00amStart: 03-14-2024 End: 30-06-3802dunw 1 capsule by mouth every twenty-four hours in the morning venlafaxine XR (EFFEXOR-XR) 150 mg 24 hr capsule Indications: Other specified depressive episodes TAKE 1 CAPSULE (150 MG TOTAL) BY MOUTH IN THE MORNING 90 capsule 1 05/08/2025 ActiveStart: 05-17-2019 End: 82-33-1731gpjo 1 capsule by mouth once dailyvenlafaxine XR (EFFEXOR-XR) 150 mg 24 hr capsule Indications: Other specified depressive episodes TAKE 1 CAPSULE BY MOUTH EVERY DAY 90 capsule 1 09/28/2023 Active Completed/Discontinued Medications MedicationDrug Class(es)DatesSig (Normalized)Sig (Original)cefdinir 300 mg oral capsule (2 sources)Cephalosporin AntibacterialStart: 11-29-2024 End: 56-71-3783lykq 2 capsules by mouth in the morningcefDINIR (OMNICEF) 300 mg capsule Take 2 capsules (600 mg total) by mouth in the morning for 7 days. 14 capsule 11/29/2024 12/06/2024 Expiredphentermine hydrochloride 37.5 mg oral tablet (10 sources)Sympathomimetic Amine AnorecticStart: 05-25-2023 End: 88-48-5205kyez 30-30.9 tablets by mouth once daily before breakfast phentermine (ADIPEX-P) 37.5 mg tablet Indications: Class 1 obesity due to excess calories without serious comorbidity with body mass index (BMI) of 30.0 to 30.9 in adult Take 1 tablet (37.5 mg total)by mouth every morning before breakfast. 30 tablet 05/25/2023 02/09/2024 Discontinued (Therapy completed)tamsulosin hydrochloride 0.4 mg oral capsule (20 sources)alpha-Adrenergic BlockerStart: 11-29-2024 End: 62-72-7970yfmq 1 capsule by mouth once dailytamsulosin (FLOMAX) 0.4 mg capsule Take 1 capsule (0.4 mg total) by mouth nightly. 11/29/2024 12/15/2024 Discontinued (Therapy completed)Start: 06-02-2023 End: 66-34-0107ojtr 1 capsule by mouth once dailytamsulosin (FLOMAX) 0.4 mg capsule Take 1 capsule (0.4 mg total) by mouth nightly. 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; Translations: [Other specified congenitalmalformations of peripheral vascular system]Onset: 413861-12-4961XkbhjemMnrndjfkrt associated with dizziness or vertigo (16 sources)Dizziness; Translations: [Dizziness and giddiness]Onset: 11-28-2024 56-41-8404HvoobbeoEsckfexkmn associated with dizziness or vertigo (1 source)Conditions associated with dizziness or vertigoOnset: 11-28-2024 Deficiency and other anemia (1 source)Anemia; Translations: [Anemia, unspecified]59-05-0098SucohatnXhbwlwyy mellitus without complication (4 sources)Hyperglycemia; Translations: [Hyperglycemia, unspecified]Onset: 390900-70-0006TvtiuozuVksrouolq of lipid metabolism (20 sources)Mixed hyperlipidemia; Translations: [Mixed hyperlipidemia]Onset: 498291-75-6065PqsivpgHsqqkxwtm of teeth and jaw (6 sources)Jaw pain; Translations: [Jaw pain]93-32-1309VrfidttpB Codes: Fall (1 source)FallOnset: 66-60-7794Eazyorhdwx disorders (6 sources)Gastroesophageal reflux disease without esophagitis; Translations: [Gastro-esophageal reflux disease without esophagitis]56-74-5496IpgvanqCyynbidzs hypertension (20 sources)Essential hypertension; Translations: [Essential (primary) hypertension]Onset: 999520-27-1963RyuplavAjwczgnwu and duodenitis (20 sources)Gastritis; Translations: [Unspecified chronic gastritis without bleeding]Onset: 039205-89-4331HlrlioeMgblz disorders and dislocations; trauma-related (8 sources)Chondromalacia of patella; Translations: [Chondromalacia patellae, unspecified knee]Onset: 605489-18-5993DzwplzxUfsibbq and fatigue (1 source)Weakness; Translations: [Weakness]Onset: 27-79-3195UskajkxqTsvc disorders (20 sources)Depressive disorder; Translations: [Other specified depressive episodes]Onset: 017069-36-8897QhvnfrpGeczgnn (1 source)Tinea pedis; Translations: [Tinea pedis]90-11-0160CxjudklhRuvpkiauuli chest pain (1 source)Chest pain, unspecified; Translations: [Chest pain, unspecified]Onset: 06-14-0865OhlqredpUeoauffepvwphp (20 sources)Osteoarthritis; Translations: [Unspecified osteoarthritis, unspecified site]Onset: 760666-40-2422JralabyMgakm circulatory disease (1 source)Hypotension, unspecified; Translations: [Hypotension, unspecified] Onset: 15-27-7484OpunrgihCvmhy connective tissue disease (1 source)Arthrodesis status; Translations: [Arthrodesis status]Onset: 28-48-1969EiwwoafsSgart ear and sense organ disorders (4 sources)Chronic right myringitis; Translations: [Chronic myringitis, right ear]59-84-3450UdwxlsyLvdzp ear and sense organ disorders (8 sources)Sensorineural hearing loss, bilateral; Translations: [Sensorineural hearing loss, bilateral]Onset: 771372-16-2060JxfpiioScqee endocrine disorders (7 sources)Hypoglycemia; Translations: [Hypoglycemia, unspecified]12-20-2024 ChronicOther endocrine disorders (1 source)Hypoglycemia, unspecified; Translations: [Hypoglycemia, unspecified] Onset: 20-95-1656ZbworhuAenbe injuries and conditions due to external causes (8 sources)Other specified injuries of right shoulder and upper arm, sequela; Translations: [Shoulder and upper arm injury]Onset: 193030-75-7619Skzkvrhl Other injuries and conditions due to external causes (2 sources)Foreign body in right ear; Translations: [Foreign body in right ear, initial encounter]39-86-2091UxbczcprBsxrn lower respiratory disease (1 source)Dyspnea, unspecified; Translations: [Dyspnea, unspecified]Onset: 92-46-2043QtwwoceoFohtc male genital disorders (20 sources)Induratio penis plastica; Translations: [Induration penis plastica] Onset: 464088-49-1256AxyclrnPfzzc nervous system disorders (1 source)Carpal tunnel syndrome of right wrist; Translations: [Carpal tunnel syndrome, right upper limb]52-65-8201TnuphzeTwygn nervous system disorders (2 sources)Paresthesia; Translations: [Paresthesia of skin]74-34-4508Egpqknqx Other nervous system disorders (1 source)Paresthesia of skin; Translations: [Paresthesia of skin]Onset: 54-99-8098BqoxsrylJnirf non-traumatic joint disorders (4 sources)Pain in left shoulder; Translations: [Left shoulder pain]Onset: 653603-73-7350AwecjvikMnqju nutritional; endocrine; and metabolic disorders (20 sources)Obesity caused by energy imbalance; Translations: [Class 1 obesity due to excess calories with serious comorbidity and body mass index (BMI) of 30.0 to 30.9 in adult]Onset: 043170-71-4195VfookzsMjrzi nutritional; endocrine; and metabolic disorders (2 sources)Other obesity due to excess calories; Translations: [Other obesity due to excess calories]Onset: 75-01-0059ZfbrhcwPjmkw nutritional; endocrine; and metabolic disorders (1 source)Body mass index (BMI) 30.0-30.9, adult; Translations: [Body mass index (BMI) 30.0-30.9, adult]Onset: 81-09-2515LykyoowSvkmf nutritional; endocrine; and metabolic disorders (2 sources)Body mass index 30+ - obesity; Translations: [Body mass index (BMI) 31.0-31.9, adult]69-73-8934ZspzdozXhddj nutritional; endocrine; and metabolic disorders (3 sources)Cholesterol level - finding; Translations: [Lipoprotein deficiency] Onset: 421279-39-5489LxtyaoxSwmuk nutritional; endocrine; and metabolic disorders (1 source)Body mass index (BMI) 31.0-31.9, adult; Translations: [Body mass index (BMI) 31.0-31.9, adult]Onset: 20-08-8267LbkdydnWxudza media and related conditions (2 sources)Chronic serous otitis media of right ear; Translations: [Chronic serous otitis media, right ear]Onset: 161051-30-1025GopshjdIdmstn media and related conditions (20 sources)Dysfunction of bilateral eustachian tubes; Translations: [Unspecified Eustachian tube disorder, bilateral]Onset: EpisodicResidual codes; unclassified (20 sources)Obstructive sleep apnea syndrome; Translations: [Obstructive sleep apnea (adult) (pediatric)]Onset: 628068-53-0767TontcouTdgrqdat codes; unclassified (2 sources)Obstructive sleep apnea (adult) (pediatric); Translations: [Obstructive sleep apnea (adult) (pediatric)]Onset: 14-35-5915InzptxmLkvcxwys codes; unclassified (1 source)Sleep apneaOnset: 72-61-4350KmodjyuXccqtvfn codes; unclassified (6 sources)Insomnia; Translations: [Insomnia, unspecified]31-81-1038Eirwxqqm Residual codes; unclassified (1 source)Unable to comply with treatment; Translations: [Noncompliance with CPAP treatment]48-04-1722LczmdcigHqxoilvxr and history of mental health and substance abuse codes (2 sources)Patient encounter status; Translations: [Encounter for screening for depression]Onset: 148189-44-5186QckxtgwcEnbynxkuriw; intervertebral disc disorders; other back problems (14 sources)Other cervical disc displacement at C4-C5 level; Translations: [Other cervical disc displacement atC5-C6 level]Onset: 82-18-0762ZlaevxxOahikcs (3 sources)Syncope and collapse; Translations: [Syncope and collapse]Onset: 99-12-0294BxgzxeivWnskmttcffws (1 source)Chronic serous otitis media of right yod42-90-7531Aonvoduftubq (1 source)Obesity, class 1; Translations: [Obesity, class 1]Onset: 02-06-2025 Unclassified (1 source)Annual ExamOnset: 97-73-7749Nrynxccrrswc (1 source)New PatientOnset: 09-56-1778Rsidupxqapua (1 source)bp,Onset: 02-06-2025 Past or Other Problems Problem ClassificationProblemDateDocumented DateEpisodic/ChronicAcute and unspecified renal failure (20 sources)Acute renal failure syndrome; Translations: [Acute kidney failure, unspecified]Onset: 656768-09-0125CohzsrusOziuhfo dysrhythmias (20 sources)Palpitations; Translations: [Palpitations]Onset: 07-01-2022 82-03-9204DighapldVntzvxvumf and other anemia (2 sources)Anemia, unspecified; Translations: [Anemia, unspecified]Onset: 77-82-1060YderghuzHrdjuvkzsq disorders (20 sources)Esophagitis; Translations: [Esophagitis]Onset: EpisodicFluid and electrolyte disorders (20 sources)Low blood pressure; Translations: [Hypovolemia]Onset: 11-29-2024 64-60-2259QlwnpyuaWyiodvsol and duodenitis (20 sources)Gastritis; Translations: [Gastritis, unspecified, without bleeding] Onset: 568611-05-1521SecnegcgPxdatorklgzkusex hemorrhage (20 sources)Rectal hemorrhage; Translations: [Hemorrhage of anus and rectum] Onset: 600403-12-4789QievalgrKmbpxktvhpkow symptoms and ill-defined conditions (20 sources)Lower urinary tract symptoms; Translations: [Unspecified symptoms and signs involving the genitourinary system]Onset: 832294-07-6782Yxkzzntj Inflammatory conditions of male genital organs (20 sources)Epididymitis; Translations: [Epididymitis]Onset: 07-18-2019 90-01-1689RzwcubheXhaay disorders and dislocations; trauma-related (20 sources)Other tear of medial meniscus, current injury, right knee, initial encounter; Translations: [Tear of medial meniscus of knee]Onset: 07-20-2018 EpisodicMood disorders (20 sources)Mood disorders; Translations: [Depression, unspecified]Onset: 03-24-2024 Resolved: 286870-56-5559Tpnhowyjnwgy breast conditions (3 sources)Lump in upper outer quadrant of left breast; Translations: [Unspecified lump in the left breast, upper outer quadrant]Onset: 03-08-2024 95-61-6340IamyjxwoDancb and unspecified benign neoplasm (20 sources)Polyp of sigmoid colon; Translations: [Polyp of colon]Onset: 781500-56-9651ZyzwbmbpTbwch and unspecified benign neoplasm (1 source)Polyp of colon; Translations: [Polyp of colon]Onset: 09-28-2019 EpisodicOther circulatory disease (20 sources)Orthostatic hypotension; Translations: [Orthostatic hypotension] Onset: 023058-38-9881CxwfgifuStgqf connective tissue disease (3 sources)Neuralgia and neuritis, unspecified; Translations: [Neuralgia and neuritis, unspecified]Onset: 37-90-3748QdmmxvgbIehwy connective tissue disease (20 sources)Fibromyalgia; Translations: [Fibromyalgia]Onset: 08-12-2016 91-33-8021ZusjrlhnCdicr connective tissue disease (20 sources)Impingement syndrome of shoulder region; Translations: [Impingement syndrome of unspecified shoulder]Onset: 305925-00-1123LovstlleTzpel connective tissue disease (20 sources)Hypertrophy of fat pad of knee; Translations: [Hypertrophy of (infrapatellar) fat pad]Onset: 107483-21-5751KohytqogZxdns gastrointestinal disorders (20 sources)Dysphagia; Translations: [Dysphagia, unspecified]Onset: 02-25-2019 34-49-9909RqwnoodiVkxrh lower respiratory disease (3 sources)Shortness of breath; Translations: [Shortness of breath]Onset: 51-31-4625VwgndbttRbxwt non-traumatic joint disorders (20 sources)Shoulder pain; Translations: [Pain in unspecified shoulder]Onset: 325030-90-5601CxcyxlnwHhles non-traumatic joint disorders (20 sources)Knee joint effusion; Translations: [Effusion, unspecified knee] Onset: 374495-62-4309SuzrdjbbBixch screening for suspected conditions (not mental disorders or infectious disease) (20 sources)Encounter for screening, unspecified; Translations: [Electrocardiogram abnormal]Onset: 93-08-9160JqurmaqzRmivicbh codes; unclassified (1 source)Flushing; Translations: [Flushing]64-75-7879ScpivxccXccwneoy codes; unclassified (20 sources)Snuff user; Translations: [Tobacco use]Onset: EpisodicResidual codes; unclassified (1 source)Flushing; Translations: [Flushing]Onset: 69-74-9334Dhddkysk Spondylosis; intervertebral disc disorders; other back problems (20 sources)Cervical radiculopathy; Translations: [Radiculopathy, cervical region]Onset: 487401-07-7712DgoaklxcTkhwrjm and strains (20 sources)Sprain of upper extremity; Translations: [Unspecified sprain of unspecified shoulder joint, initialencounter]Onset: 183005-54-2955Yfksquka Superficial injury; contusion (20 sources)Contusion of knee; Translations: [Contusion of unspecified knee, initial encounter]Onset: 829480-47-8317VxsfauodUwadqxddbsfy (20 sources)Onset: Results Test NameValueInterpretationReference RangeFacilityX-ray reportOrdered By: Chris Fritz on 11-93-1356Hlzxp reportLICKING [facility] [address] XRay Report Signed Patient: Avel Funes MR#: [id number] : 1975 Acct:[id number] Age/Sex: 49 / M ADM Date: 5 Loc: XDUCLY Room: Type: [facility] CLI Attending Dr: Em Appiah APRN Copies to: Em Appiah APRN~ Ordering Provider: Em Appiah APRN Date of Service: 06/22/25 XR/XR shoulder LT min 2V*: LEFT SHOULDER PAIN 3 views of the left shoulder CLINICAL HISTORY: Pain COMPARISON: None FINDINGS: Moderate changes of acromioclavicular joint and glenohumeral joint with spurring. No fractures or dislocation identified. Postsurgical changes of the cervical spine partially visualized. XR/XR shoulder LT min 2V* IMPRESSION: No acute bony process. Mild degenerative changes. Impression dictated by: Chris Fritz M.D. 06/22/2025 6:11 PM Dictation Location: RADIO-PC-29 Transcribed By: JAY 06/22/251810 Dictated By: Chris Fritz MD 06/22/251809 Signed By: 06/22/251810 [facility] Work Phone: XR shoulder LT min 2V*on 94-45-4459NU shoulder LT min 2V*[facility] [place] [address] [place] [address] XRay Report Signed Patient: Avel Funes MR#: [id number] : 1975 Acct:[id number] Age/Sex: 49 / M ADM Date: 06/22/25 [facility] Type: [facility] Attending Dr: Em Appiah APRN Copies to: Em Appiah APRN Ordering Provider: Em Appiah APRN Date of Service: 06/22/25 XR/XR shoulder LT min 2V*: LEFT SHOULDER PAIN 3 views of the left shoulder CLINICAL HISTORY: Pain COMPARISON: None FINDINGS: Moderate changes of acromioclavicular joint and glenohumeral joint with spurring. No fractures or dislocation identified. Postsurgical changes of the cervical spine partially visualized. XR/XR shoulder LT min 2V* IMPRESSION: No acute bony process. Mild degenerative changes. Impression dictated by: Chris Fritz M.D. 06/22/2025 6:11 PM Dictation Location: RADIO-PC-29 Transcribed By: JAY 06/22/251810 Dictated By: Chris Fritz MD 06/22/251809 Signed By: 10/23/[address] [place] [address] Physician GroupOrders Onlyon 06-78-4145Amgjuo [id number] Avel Funes 1975 M Date Provider Department Center 06/07/2025 [id number], YEYO Licea [facility] Family History Problem Relation Age of Onset Fibromyalgia Mother Irritable bowel syndrome Mother Thyroid disease Mother Other Mother Prostate cancer Father Diabetes Father Seizures Sister Thyroid disease Sister Family Status - Relation Status Age at Mother Alive Father Alive SisterNormalUniversity Norwalk Memorial HospitalOffice Visiton 32-67-7269Eblvrk- up [id number] Avel Funes 1975 M Date Provider Department Center 06/06/2025 K[address] BE[address] AMALIA Barajas Family History Problem Relation Age of Onset Fibromyalgia Mother Irritable bowel syndrome Mother Thyroid disease Mother Other Mother Prostate cancer Father Diabetes Father Seizures Sister Thyroid disease Sister Family Status - Relation Status Age at Mother Alive Father Alive Sister Level of Service:35162 MD OFFICE/OUTPATIENT NEW MODERATE MDM 45 MINUTESNormal [facility] CenterBASIC METABOLIC PANELon 20-06-9376Zdkfd gap [Moles/Vol]8 mmol/LNormal5-15[facility] Ambulatory PPGComment on above: Performed By: #### BMP #### [facility] ([facility]) [address] [place] [address] VIRCalcium [Mass/Vol]9.8 mg/dLNormal8.5-10.5PSouthern [facility] Ambulatory PPGComment on above:Performed By: #### BMP #### [facility] ([facility]) [address] [place] [address] VIRChloride [Moles/Vol]102 mmol/KXrhfoh03-693GzuGebdhw Hospital Ambulatory PPGComment on above:Performed By: #### BMP #### [facility] ([facility]) [address] [place] [address] VIRCO2 [Moles/Vol]29 mmol/KRupjiy68-51IfmMlppsj Hospital Ambulatory PPGComment on above:Performed By: #### BMP #### [facility] ([facility]) [address] [place] [address] VIRCreatinine [Mass/Vol]1.06 mg/dLNormal0.60-1.30[facility] Ambulatory PPGComment on above:Result Comment: METHOD TRACEABLE TO IDMS STANDARDPerformed By: #### BMP #### [facility] ([facility]) [address] [place] [address] VIRGFR/1.73 sq M.predicted among non-blacks MDRD (S/P/Bld) [Vol rate/Area]87 mL/min/{1.73_m2}Normal>=60[facility] Ambulatory PPGComment on above:Result Comment: Reported eGFR is based on the CKD-EPI 2020 equation that does not use a race coefficient.Performed By: #### BMP #### [facility] ([facility]) [address] [place] [address] VIRGlucose [Mass/Vol]126 mg/zHUykc00-04AwvDjucdw Hospital Ambulatory PPGComment on above:Performed By: #### BMP #### [facility] ([facility]) [address] [place] [address] VIRPotassium [Moles/Vol]4.4 mmol/LNormal3.5-5.0[facility] Ambulatory PPGComment on above:Performed By: #### BMP #### [facility] ([facility]) [address] [place] [address] VIRSodium [Moles/Vol]139 mmol/ARsxxmp656-593EtvJmdoeu Hospital Ambulatory PPGComment on above:Performed By: #### BMP #### [facility] ([facility]) [address] [place] [address] VIRUrea nitrogen [Mass/Vol]13 mg/dLNormal5-23[facility] Ambulatory PPGComment on above:Performed By: #### BMP #### [facility] ([facility]) [address] [place] [address] VIRBasic Metabolic Panelon 35-19-4848Qtiya gap [Moles/Vol]8 mmol/L5 - 15 mmol/[facility] SystemCalcium [Mass/Vol]9.8 mg/dL8.5 - 10.5 mg/dLEast [facility] Hospital SystemChloride [Moles/Vol]102 mmol/L98 - 109 mmol/L [facility] HospitalCO2 [Moles/Vol]29 mmol/L22 - 32 mmol/[facility] SystemCreatinine [Mass/Vol]1.06 mg/dL0.60 - 1.30 mg/dLMercy Health Tiffin Hospital Comment on above:METHOD TRACEABLE TO IDMS STANDARDEGFR Non-Race Jjqwlocmu60- [facility] Hospital CenterComment on above:Reported eGFR is based on the CKD-EPI 2020 equation that does not use a race coefficient. Glucose [Mass/Vol]126 mg/mLEkhc60 - 99 mg/dLMercy Health Tiffin Hospital Interpretation and review of laboratory resultsAbnormOhioHealth Doctors Hospital Potassium [Moles/Vol]4.4 mmol/L3.5 - 5.0 mmol/[facility] SystemSodium [Moles/Vol]139 mmol/L134 - 146 mmol/[facility] Children's HospitalUrea nitrogen [Mass/Vol]13 mg/dL5 - 23 mg/dLHaven Behavioral Healthcare LIPID PROFILEon 14-92-1912Nqupyywvshd [Mass/Vol]234 mg/rGZzdm321-543VthCofjgo Hospital Ambulatory PPGComment on above:Order Comment: LDL (CALC) Not reported due to high TriglyceridePerformed By: #### LIPR #### [facility] ([facility]) [address] [place] [address] VIRCholesterol in HDL [Mass/Vol]38 mg/dLLow>39[facility] Ambulatory PPGComment on above:Order Comment: LDL (CALC) Not reported due to high TriglycerideResult Comment: HDL <40 mg/dL - High Risk HDL > or = 40mg/dL- Desirable HDL >60 mg/dL - Negative RiskPerformed By: #### LIPR #### [facility] ([facility]) [address] [place] [address] VIRCHOLESTEROL:HDL6.2High1.0-5.0[facility] Ambulatory PPGComment on above:Order Comment: LDL (CALC) Not reported due to high TriglyceridePerformed By: #### LIPR #### [facility] ([facility]) [address] [place] [address] VIRTriglyceride [Mass/Vol]750 mg/kTXafp29-898VxzVzxlpv Hospital Ambulatory PPGComment on above:Order Comment: LDL (CALC) Not reported due to high TriglyceridePerformed By: #### LIPR #### [facility] ([facility]) [address] [place] [address] VIRVERY LOW KKDWIYUKDPG277 mg/dLHigh0-30[facility] Ambulatory PPGComment on above:Order Comment: LDL (CALC) Not reported due to high TriglyceridePerformed By: #### LIPR #### [facility] ([facility]) [address] [place] [address] VIRLipid profileOrdered By: Lui Escalona on 05-09-2025 Cholesterol [Mass/Vol]234 mg/hQAvdb441 - 200 mg/dLMercy Health Tiffin Hospital Cholesterol in HDL [Mass/Vol]38 mg/dLLow39 - PINF mg/dLMercy Health Tiffin Hospital Comment on above:HDL <40 mg/dL - High Risk HDL > or = 40mg/dL- Desirable HDL >60 mg/dL - Negative Risk Cholesterol in HDL [Mass/Vol]6.2 mg/dLHigh1.0 - 5.0[facility] Cholesterol in VLDL [Mass/Vol]150 mg/dLHigh0 - 30 mg/dLMercy Health Tiffin Hospital Interpretation and review of laboratory resultsAbnoAnson Community Hospital Triglyceride [Mass/Vol]750 mg/fVDtay75 - 150 mg/dLMercy Health Tiffin HospitalLDL (CALC) Not reported due to high TriglycerideHaven Behavioral HealthcareRDLDL DIRECT LDLon 95-56-1485Xxyohlhbzab in LDL [Mass/Vol]75 mg/dL Normal<=130[facility] Ambulatory PPGComment on above:Result Comment: LDL <100 mg/dL - Desirable LDL 130-159 mg/dL - Borderline High Risk LDL >160 mg/dL - High RiskPerformed By: #### RDLDL #### [facility] ([facility]) [address] [place] [address] VIRRdldl Direct Ldlon 80-66-8662Zvleookyzry in LDL [Mass/Vol]75 mg/dLNINF - 130 mg/dLMercy Health Tiffin HospitalComment on above:LDL <100 mg/dL - Desirable LDL 130-159 mg/dL - Borderline High Risk LDL >160 mg/dL - High Risk Interpretation and review of laboratory resultsNormalWestfields Hospital and Clinic SystemGlucose (Bld) [Mass/Vol]on 53-39-0194Ymyvbcd Blood, POC 143 mg/dLPemiscot Memorial Health Systems HealthcareOffice Visiton 78-08-2415Htoaho-up visit [id number] Avel Funes 1975 M Date Provider Department Center 01/30/2025 [id number] UMANZOR AMALIA Barajas Family History Problem Relation Age of Onset Fibromyalgia Mother Irritable bowel syndrome Mother Thyroid disease Mother Other Mother Prostate cancer Father Diabetes Father Seizures Sister Thyroid disease Sister Family Status - Relation Status Age at Mother Alive Father Alive Sister Level of Service:53696 MD OFFICE/OUTPATIENT NEW MODERATE MDM 45 MINUTESNormal [facility] Medical CenterOrders Onlyon 39-60-8994Wavyck [id number] Avel Funes 1975 M Date Provider Department Center 01/30/2025 [id number], HISTORICAL AMALIA Barajas Family History Problem Relation Age of Onset Fibromyalgia Mother Irritable bowel syndrome Mother Thyroid disease Mother Other Mother Prostate cancer Father Diabetes Father Seizures Sister Thyroid disease Sister Family Status - Relation Status Age at Mother Alive Father Alive SisterNormalUniversBlanchard Valley Health SystemBASIC METABOLIC PANLon 12-24-2024 Anion gap [Moles/Vol]10 mmol/LNormal5-15[facility] DaytonComment on above:Performed By: #### HA1C, 3016-3, 2986-8 #### [facility] ([id number]) [address] [place], [place] [address]Attqhbh [Mass/Vol]9.9 mg/dLNormal8.5-10.5PKnox Community HospitalComment on above:Performed By: ###Catalino MCDONOUGH, 3015-3, 6-8 #### [facility] ([id number]) [address] [place], [place] [address]Blzjfhtd [Moles/Vol]103 mmol/MJqxmbb18-868XqdYgappaBaylor Scott & White Medical Center – TaylorComment on above:Performed By: ###Catalino MCDONOUGH, 3, 2985-8 #### [facility] ([id number]) [address], [address] [place], [place] [address]QD7 [Moles/Vol]30 mmol/YWwfgta49-14OqrRdllmfKnox Community Hospital Comment on above:Performed By: ###Catalino MCDONOUGH, 3, 2985-8 #### [facility] ([id number]) [address], [address] [place], [place] [address]Iuaozmlvzu [Mass/Vol]1.07 mg/dLNormal0.60-1.30ProBaylor Scott & White Medical Center – TaylorComment on above:Result Comment: METHOD TRACEABLE TO IDMS STANDARD Performed By: ###Catalino MCDONOUGH, 3, 6-8 #### [facility] ([id number]) [address] [place], [place] [address]PXT/1.73 sq M.predicted among non-blacks MDRD (S/P/Bld) [Vol rate/Area]86 mL/min/{1.73_m2}Normal>59ProBaylor Scott & White Medical Center – TaylorComment on above:Result Comment: Reported eGFR is based on the CKD-EPI 2020 equation that does not use a race coefficient.Performed By: ###Catalino MCDONOUGH, 3015-3, 2986-8 #### [facility] ([id number]) [address], [address] [place], [place] [address]Ibilkkr [Mass/Vol]99 mg/uALfcwmq31-08CfnVgxfyzKindred Hospital Dayton Comment on above:Performed By: ###Catalino MCDONOUGH, 3016-3, 2986-8 #### [facility] ([id number]) [address], [address] [place], [place] [address]Lxurzzner [Moles/Vol]4.4 mmol/LNormal3.5-5.0ProBaylor Scott & White Medical Center – TaylorComment on above:Performed By: #### SHARONDA, 3015-3, 6-8 #### [facility] ([id number]) [address], [address] [place], [place] [address]Swkydc [Moles/Vol]143 mmol/JFobfxv220-839QgpXyujhd Fremont HospitalComment on above:Performed By: ###Catalino MCDONOUGH, 3015-3, 2985-8 #### [facility] ([id number]) [address], [address] [place], [place] [address]Oqgl nitrogen [Mass/Vol]10 mg/dLNormal5-23ProBaylor Scott & White Medical Center – TaylorComment on above:Performed By: #### SHARONDA, 3015-3, 6-8 #### [facility] ([id number]) [address], [facility] [address] [place], [place] [address]L peptide post fast [Mass/Vol]on 58-88-0972U-Peptide, S3.6 ng/mL Normal1.1 - 4.4ProBaylor Scott & White Medical Center – TaylorComment on above:Result Comment: NOTE ADDITIONAL INFORMATION Reference interval applies to fasting patients. Test Performed by: [facility][Note 3] [address] [place] [address] Furnishings Conservator: Priscilla Leigh Ph.D.; CLIA# [id number] By: #### SHARONDA, 6-3, 2986-8 #### [facility] ([id number]) [address], [address] [place], [place] [address]RRCPF PANELon 91-10-5416Squvyrp [Mass/Vol]4.8 g/dLNormal3.2-5.3 ProMMercy Hospital BakersfieldComment on above:Performed By: #### SHARONDA, 3015-3, 298-8 #### [facility] ([id number]) [address], [address] [place] [address]HAI [Catalytic activity/Vol]47 U/VUitwdq43-685AqzGjzyegBaylor Scott & White Medical Center – TaylorComment on above:Performed By: #### SHARONDA, 3015-3, 298-8 #### [facility] ([id number]) [address], [address] [place], [place] [address]CFB [Catalytic activity/Vol]19 U/LNormal0-40[facility]red Hospital DaytonComment on above:Performed By: #### SHARONDA, 3, 298-8 #### [facility] ([id number]) [address], [address] [place], [place] [address]XQO [Catalytic activity/Vol]18 U/LNormal0-41ProBaylor Scott & White Medical Center – TaylorComment on above:Performed By: #### SHARONDA, 3, 298-8 #### [facility] ([id number]) [address], [address] [place], [place] [address]Huuwprwxe [Mass/Vol]0.6 mg/dLNormal0.3-1.2PKnox Community HospitalComment on above:Performed By: #### SHARONDA, 3, 298-8 #### [facility] ([id number]) [address], [address] [place], [place] [address]Mwhkvucqf.direct [Mass/Vol]0.1 mg/dLNormal0.0-0.4[facility] Hospital DaytonComment on above:Performed By: #### SHARONDA, 3015-3, 2986-8 #### [facility] ([id number]) [address], [address] [place], [place] [address]Nldndqq [Mass/Vol]7.2 g/dLNormal6.0-8.0[facility] on above:Performed By: ###Catalino MCDONOUGH, 3016-3, 2986-8 #### [facility] ([id number]) [address] [address]Pcjkawvtfk comment Cameron (Report)on 27-78-1227HZWHZVOF LAB TEST Sent to reference labNormalMemorial Health System on above:Performed By: ##Rodo MCDONOUGH, 3015-3, 2986-8 #### [facility] ([id number]) [address] [address]SPOY GENERIC ORDERon 69-74-1698EPKD NAMEFFIG2 INSULIN LIKE IGF2 NormalKindred Hospital DaytonCombeaumont hospital on above:Performed By: #Diony MCDONOUGH, 3015- 3, 6-8 #### [facility] ([id number]) [address] [facility], [address] [address]GHBX RESULTSEE COMMENTS 01/06/2025 12:08 AMNormalMemorial Health System on above:Result Comment: NOTE Test Result Flag Unit RefValue IGF-2 945 ng/mL This test was developed and its performance characteristics determined by [employer]. It has not been cleared or approved by the Food and Drug Administration. Reference Range: Age Range Adults 333 - 967 Test Performed by: [facility] [address] [place], [place] [address]Ulqnawpwb By: ###Catalino MCDONOUGH, 3016-3, 2986-8 #### [facility] ([id number]) [address] [address]Eldfegrlvv post 12 Hr fast [Moles/Vol]on 12-24-2024 PROINSULIN,INTACT4.7 pmol/LNormal<=7.2PKnox Community HospitalComment on above:Result Comment: NOTE Performed By: [facility] [address] [place] [address] Corrections Sergeant: Austen Rodriguez MD, PhD CLIA Number: [id number] By: #### ALVARO1C, 3016-3, 2986-8 #### [facility] ([id number]) [address] [facility], [address] [place], [place] [address]Fzygzko (Bld) [Mass/Vol]on 28-74-2398Amssnum Blood, QBK516 mg/dL NOMS HealthcareInterpretation and review of laboratory resultsAbnoAurora Medical CenterHGB A1C (GLYCO-HGB)on 98-84-3437Okfrejg [Mass/Vol]108 mg/dLNormalKindred Hospital DaytonComment on above:Performed By: #### SHARONDA, 3016-3, 2986-8 #### [facility] ([id number]) [address] [place] [address], [address] [place], [place] [address]FtO2d (Bld) [Mass fraction]5.4 %Normal4.4-5.6[facility] DaytonCombeaumont hospital on above:Result Comment: NOTE ADA Guidelines Result HgbA1c Normal : less than 5.7 % Prediabetes : 5.7 % to 6.4 % Diabetes : > 6.4 % Use with caution in patients with abnormal hemoglobin variants as the half-life of red blood cells and in vivo glycation rates are affected.Performed By: #### SHARONDA, 3016-3, 2986-8 #### [facility] ([id number]) [address] [facility], [address] [place], [place] [address]Kvxsdal Qnon 76-90-4439JTNYBKV30.73 uIU/mLHigh1.00-23.00 [facility] DaytonCombeaumont hospital on above:Result Comment: Ref. range is for FASTING NON-DIABETIC POPULATION.Performed By: #### HA1C, 3016-3, 2986-8 #### [facility] ([id number]) [address], [address] [place], [place] [address]KJD AND AUTO DIFFon 60-72-1049ZPXSFWEM BASOPHIL0.1 X10E9/LNormal 0.0-0.2Pro[facility] Lake HospitalComment on above:Performed By: #### CBCA, CMP #### [facility] ([id number]) [address], [address] [place], [place] [address]Oskv form neutrophils/100 WBC (Bld)2.0 %NormalEast Liverpool City Hospital HospitalComment on above:Performed By: #### CBCA, CMP #### [facility] ([id number]) [address], [address] [place], [place] [address]Zpbfutnnf/100 WBC (Bld)1.0 %NormalTriHealth [facility] Comment on above:Performed By: #### CBCA, CMP #### [facility] ([id number]) [address], [address] [place], [place] [address]Uhlkpjixdtk (Bld) [#/Vol]0.2 10*3/uLNormal0.0-0.4ProSumma HealthComment on above:Performed By: #### CBCA, CMP #### [facility] ([id number]) [address], [address] [place], [place] [address]Uumedeslamc/100 WBC (Bld)3.0 %NormalTriHealth Bethesda Butler Hospital Comment on above:Performed By: #### CBCA, CMP #### [facility] ([id number]) [address], [address] [place], [place] [address]Bvjmaqjunmd distribution width (RBC) [Ratio]13.2 %Normal 11.5-15.0ProAshtabula County Medical Center HospitalComment on above:Performed By: #### CBCA, CMP #### [facility] ([id number]) [address], [address] [place], [place] [address]Ijoquheust (Bld) [Volume fraction]39.6 %Dqwbnj38-20NopAclrnn [place] Lake HospitalComment on above:Performed By: #### CBCA, CMP #### [facility] ([id number]) [address], [address] [place], [place] [address]Sxgdqqafkb (Bld) [Mass/Vol]13.5 g/fGBwfthy74.0-17.0ProMedica [facility] HospitalComment on above:Performed By: #### CBCA, CMP #### [facility] ([id number]) [address], [address] [place], [place] [address]Hkcswtorsce (Bld) [#/Vol]2.4 10*3/uLNormal1.0-3.5ProMedica [facility] HospitalComment on above:Performed By: #### CBCA, CMP #### [facility] ([id number]) [address], [address] [place], [place] [address]Ydnlpistjck/100 WBC (Bld)48.0 %NormalProAshtabula County Medical Center Hospital Comment on above:Performed By: #### CBCA, CMP #### [facility] ([id number]) [address], [address] [place], [place] [address]BHD (RBC) [Entitic mass]29.6 nuLgsjsz68-53ClfFikzib [place] HospitalComment on above:Performed By: #### CBCA, CMP #### [facility] ([id number]) [address], [address] [place], [place] [address]SXMH (RBC) [Mass/Vol]34.1 g/uIAremtw76-69NbqRlbtzq [facility] HospitalComment on above:Performed By: #### CBCA, CMP #### [facility] ([id number]) [address], [address] [place], [place] [address]EGX (RBC) [Entitic vol]87 jBOcawsj28-514XekVptvvp [place] HospitalComment on above:Performed By: #### CBCA, CMP #### [facility] ([id number]) [address], [address] [place], [place] [address]Ymprlffpj (Bld) [#/Vol]0.3 10*3/uLNormal0-0.9ProOhiohealthca [place] HospitalComment on above:Performed By: #### CBCA, CMP #### [facility] ([id number]) [address], [address] [place], [place] [address]Ugliljajm/100 WBC (Bld)6.0 %NormalProAshtabula County Medical Center Hospital Comment on above:Performed By: #### CBCA, CMP #### [facility] ([id number]) [address], [address] [place], [place] [address]Xmewqzdgdbw (Bld) [#/Vol]2.2 10*3/uLNormal1.5-6.6ProOhiohealthca [place] HospitalComment on above:Performed By: #### CBCA, CMP #### [facility] ([id number]) [address], [address] [place], [place] [address]Kbqhgtsh mean volume (Bld) [Entitic vol]9.2 fLNormal7-12 [facility] HospitalComment on above:Performed By: #### CBCA, CMP #### [facility] ([id number]) [address], [address] [place], [place] [address]Jcoonezuu (Bld) [#/Vol]261 10*3/zVAoeiih378-070OioIpwqpg [facility] HospitalComment on above:Performed By: #### CBCA, CMP #### [facility] ([id number]) [address], [address] [place], [place] [address]RDH COUNT4.56 X10E12/LNormal4.10-5.70[facility] Comment on above:Performed By: #### CBCA, CMP #### [facility] ([id number]) [address], [address] [place], [place] [address]JTC morphology finding Nom (Bld)NORMALNormalProAshtabula County Medical Center HospitalComment on above:Performed By: #### CBCA, CMP #### [facility] ([id number]) [address], [address] [place], [place] [address]NNG LGSRWASJON64.0 %NormalProAshtabula County Medical Center HospitalComment on above:Performed By: #### CBCA, CMP #### [facility] ([id number]) [address], [address] [place], [place] [address]XCX (Bld) [#/Vol]5.2 10*3/uLNormal4.0-11.0ProAshtabula County Medical Center HospitalComment on above:Performed By: #### CBCA, CMP #### [facility] ([id number]) [address], [address] [place], [place] [address]JDI auto differentialon 16-30-3161Pjmk form neutrophils/100 WBC (Bld)2 %[facility] Health SystemBasophils (Bld) [#/Vol]0.1 10*3/uLProMedica Health SystemBasophils/100 WBC (Bld)1 %[facility] Health SystemEosinophils (Bld) [#/Vol]0.2 10*3/uLProMedica Health SystemEosinophils/100 WBC (Bld)3 %[facility] Health SystemErythrocyte distribution width (RBC) [Ratio]13.2 %11.5 - 15.0 % [facility] Health SystemHematocrit (Bld) [Volume fraction]39.6 %39 - 49 % [facility] Health SystemHemoglobin (Bld) [Mass/Vol]13.5 g/dL13.0 - 17.0 g/dL [facility] Health SystemLymphocytes (Bld) [#/Vol]2.4 10*3/[facility]ak[facility] HospitalLymphocytes/100 WBC (Bld)48 %[facility]iff[facility] HospitalMCH (RBC) [Entitic mass]29.6 pg27 - 34 pgPKettering Health – Soin Medical CenterMCHC (RBC) [Mass/Vol]34.1 g/dL32 - 36 g/dLMercy Health Tiffin HospitalMCV (RBC) [Entitic vol]87 fL80 - 100 [facility] HospitalMonocytes (Bld) [#/Vol]0.3 10*3/[facility] Monocytes/100 WBC (Bld)6 %[facility] HospitalNeutrophils (Bld) [#/Vol]2.2 10*3/[facility] HospitalPlatelet mean volume (Bld) [Entitic vol]9.2 fL7 - 12 [facility] HospitalPlatelets (Bld) [#/Vol]261 10*3/[facility] HospitalPolymorphonuclear cells/100 WBC (Bld)NORMALMercy Health Tiffin HospitalRBC (Bld) [#/Vol]4.56 10*6/[facility] Health Livoniaegmented neutrophils/100 WBC (Bld)40 %[facility] HospitalWBC corrected for nucl RBC Auto (Bld) [#/Vol]5.2 [facility] HealthcareCOMPREHENSIVE METABOLIC PANELon 75-45-5502Ttglphi [Mass/Vol]4.9 g/dLNormal3.2-5.3PMetroHealth Parma Medical Center Comment on above:Performed By: #### CBCAbhi, CMP #### [facility] ([id number]) [address] [facility], [address] [place], [place] [address]WTO [Catalytic activity/Vol]51 U/UQxfkpt63-449KbjMsjnkf [place] HospitalComment on above:Performed By: #### CBCAbhi, CMP #### [facility] ([id number]) [address] [facility], [address] [place], [place] [address]RIP [Catalytic activity/Vol]17 U/LNormal0-40ProSumma HealthComment on above:Performed By: #### CBCAbhi, CMP #### [facility] ([id number]) [address], [address] [place], [place] [address]Usneu gap [Moles/Vol]10 mmol/LNormal5-15[facility] [place] HospitalComment on above:Performed By: #### CBCA, CMP #### [facility] ([id number]) [address], [address] [place], [place] [address]CPQ [Catalytic activity/Vol]18 U/LNormal0-41[facility] [place] HospitalComment on above:Performed By: #### CBCA, CMP #### [facility] ([id number]) [address], [address] [place], [place] [address]Vvcjukzwf [Mass/Vol]0.5 mg/dLNormal0.3-1.2[facility] [place] HospitalComment on above:Performed By: #### CBCA, CMP #### [facility] ([id number]) [address], [address] [place], [place] [address]Otboull [Mass/Vol]9.9 mg/dLNormal8.5-10.5[facility] [place] HospitalComment on above:Performed By: #### CBCA, CMP #### [facility] ([id number]) [address], [address] [place], [place] [address]Ctewdbki [Moles/Vol]102 mmol/OWzbyuv12-580VvdIynbmk [place] HospitalComment on above:Performed By: #### CBCA, CMP #### [facility] ([id number]) [address], [address] [place], [place] [address]BY0 [Moles/Vol]27 mmol/FJdpbkp97-29CxdZimmvr [place] [facility] Comment on above:Performed By: #### CBCA, CMP #### [facility] ([id number]) [address], [address] [place], [place] [address]Wnmetasizp [Mass/Vol]0.99 mg/dLNormal0.60-1.30ProSumma HealthComment on above:Result Comment: METHOD TRACEABLE TO IDMS STANDARD Performed By: #### ANGELES, CMP #### [facility] ([id number]) [address], [address] [place], [place] [address]xLGE (CKD-EPI) NON-RACE DEPENDENT>90Normal>59ProAshtabula County Medical Center HospitalComment on above:Result Comment: Reported eGFR is based on the CKD-EPI 2020 equation that does not use a race coefficient.Performed By: #### ANGELES, CMP #### [facility] ([id number]) [address], [address] [place], [place] [address]Bocazyp [Mass/Vol]114 mg/sNPbrx63-92KdyXqykptSumma Health Comment on above:Performed By: #### ANGELES, CMP #### [facility] ([id number]) [address], [address] [place], [place] [address]Yyjokemaf [Moles/Vol]4.4 mmol/LNormal3.5-5.0ProSumma HealthComment on above:Performed By: #### ANGELES, CMP #### [facility] ([id number]) [address], [address] [place], [place] [address]Kdmmcjf [Mass/Vol]7.0 g/dLNormal6.0-8.0[facility] Comment on above:Performed By: #### ANGELES, CMP #### [facility] ([id number]) [address] [address] [place], [place] [address]Yzoaml [Moles/Vol]139 mmol/SMjdkwv858-320RloPuasyv [place] HospitalComment on above:Performed By: #### CBCAbhi, CMP #### [facility] ([id number]) [address], [address] [place], [place] [address]Seiy nitrogen [Mass/Vol]10 mg/dLNormal5-23Pro[facility]ica [place] HospitalComment on above:Performed By: #### CBCA, CMP #### [facility] ([id number]) [address] [facility], [address] [place], [place] [address]Uyfwzltwpbgbw metabolic panelon 14-62-7972Ejrthys [Mass/Vol]4.9 g/dL3.2 - 5.3 g/dLProCleburne Community Hospital And Nursing Home Health SystemALP [Catalytic activity/Vol]51 U/L39 - 130 U/LProMedica Health SystemALT No additional P-5'-P [Catalytic activity/Vol] 17 U/L0 - 40 U/LProMedica Health SystemAnion gap [Moles/Vol]10 mmol/L5 - 15 mmol/LProMedica Health SystemAST [Catalytic activity/Vol]18 U/L0 - 41 U/L ProMSt. Cloud VA Health Care System SystemBilirubin [Mass/Vol]0.5 mg/dL0.3 - 1.2 mg/dLProOhiohealthca [facility] SystemCalcium [Mass/Vol]9.9 mg/dL8.5 - 10.5 mg/dLProSelect Medical [facility] System Chloride [Moles/Vol]102 mmol/L98 - 109 mmol/LProMedica Health SystemCO2 [Moles/Vol]27 mmol/L22 - 32 mmol/LProMedica Health SystemCreatinine [Mass/Vol] 0.99 mg/dL0.60 - 1.30 mg/dLEast [facility] Regional [facility] SystemComment on above:METHOD TRACEABLE TO [facility] STANDARDeGFR (CKD-EPI)non-race dependent- [facility] Hospital CenterComment on above: Reported eGFR is based on the CKD-EPI 2020 equation that does not use a race coefficient. Glucose [Mass/Vol]114 mg/hJXnqp08 - 99 mg/dLEast [facility] System Interpretation and review of laboratory resultsAbnormalProSelect Medical [facility] System Potassium [Moles/Vol]4.4 mmol/L3.5 - 5.0 mmol/LProMedica Health SystemProtein [Mass/Vol]7 g/dL6.0 - 8.0 g/dLProCleburne Community Hospital And Nursing Home Health SystemSodium [Moles/Vol]139 mmol/L134 - 146 mmol/LProMedica Health SystemUrea nitrogen [Mass/Vol]10 mg/dL5 - 23 mg/dLProMedica Health SystemEast [facility] SystemCBC AND AUTO DIFFon 50-99-2308GPUXHZXD BASOPHIL0.0 X10E9/LNormal0.0-0.2PKnox [facility] Comment on above:Performed By: #### 73825-1, CMP, CBCA ####[facility] ([id number])[address] [place] [address]XQMJNEEU NEUTROPHIL3.1 X10E9/LNormal1.5-6.6ProBaylor Scott & White Medical Center – TaylorComment on above: Performed By: #### 27906-7, CMP, CBCA ####[facility] ([id number])[address] [place] [address]Btyuveihb/100 WBC (Bld)0.6 %NormalProBaylor Scott & White Medical Center – TaylorComment on above:Performed By: #### 79002-7, CMP, CBCA ####[facility] ([id number])[address] [place] [address]Utmgqhdkqpl (Bld) [#/Vol]0.1 10*3/uLNormal 0.0-0.4[facility]red Hospital DaytonComment on above:Performed By: #### 49559-1, CMP, CBCA ####[facility] ([id number])[address] [place] [address]Nhnhglzwgds/100 WBC (Bld)2.0 %NormalProBaylor Scott & White Medical Center – TaylorComment on above:Performed By: #### 76614-1, CMP, CBCA ####[facility] ([id number])[address] [place] [address]Ulwkbstiuew distribution width (RBC) [Ratio]12.8 %Naoglo11.5-15.0[facility]red Hospital DaytonComment on above:Performed By: #### 47742-3, CMP, CBCA ####[facility] ([id number])[address] [place], [place] [address]Xqouytkmtj (Bld) [Volume fraction]34.0 %Bgq83-99ExfRbgcuxKindred Hospital DaytonComment on above:Performed By: #### 68496-5, CMP, CBCA ####[facility] ([id number])[address] [place] [address]Mfeuipuxmo (Bld) [Mass/Vol]11.8 g/dLLow13.0-17.0[facility] Hospital DaytonComment on above:Performed By: #### 95158-6, CMP, CBCA ####[facility] ([id number])[address] [place] [address]Gmubrjhdtrc (Bld) [#/Vol]3.0 10*3/uLNormal1.0-3.5POchsner Medical Centerica Sharp Memorial HospitalComment on above:Performed By: #### 17982-4, CMP, CBCA ####[facility] ([id number])[address] [place] [address]Vxvbbysxcym/100 WBC (Bld)43.7 %NormalProBaylor Scott & White Medical Center – TaylorComment on above:Performed By: #### 84107-4, CMP, CBCA ####[facility] ([id number])[address] [place] [address]VMJ (RBC) [Entitic mass]30.1 ugBpdnfj66-64WhgOygupcKindred Hospital DaytonComment on above:Performed By: #### 49335-4, CMP, CBCA ####[facility] ([id number])[address] [place] [address]HNUG (RBC) [Mass/Vol]34.8 g/nPLbwouk41-98VnhVgaqpbBaylor Scott & White Medical Center – TaylorComment on above: Performed By: #### 16727-0, CMP, CBCA ####[facility] ([id number])[address] [place], [place] [address]KNP (RBC) [Entitic vol]87 lSWcnqsu11-416XrcZjdqtgKindred Hospital DaytonComment on above: Performed By: #### 72811-8, CMP, CBCA ####[facility] ([id number])[address] [place] [address]Osrazjtct (Bld) [#/Vol]0.5 10*3/uLNormal0-0.9[facility]red Hospital DaytonComment on above: Performed By: #### 11408-5, CMP, CBCA ####[facility] ([id number])[address] [place] [address]Otfhnrasy/100 WBC (Bld)7.2 %NormalProBaylor Scott & White Medical Center – TaylorComment on above:Performed By: #### 82802-9, CMP, CBCA ####[facility] ([id number])[address] [place] [address]Pgeznpcjdoj/100 WBC (Bld)46.5 %Normal [facility]red Hospital DaytonComment on above:Performed By: #### 30402-3, CMP, CBCA ####[facility] ([id number])[address] [place] [address]Yqzhmdpg mean volume (Bld) [Entitic vol]9.0 fLNormal7-12 [facility] Hospital DaytonComment on above:Performed By: #### 23909-9, CMP, CBCA ####[facility] ([id number])[address] [place] [address]Ycizekoyv (Bld) [#/Vol]227 10*3/wHCsgxmb542-568WvrUbnxgl [facility]remont HospitalComment on above:Performed By: #### 84711-6, CMP, CBCA ####[facility] ([id number])[address] [place] [address]JRH COUNT3.92 X10E12/LLow4.10-5.70ProBaylor Scott & White Medical Center – TaylorComment on above:Performed By: #### 84539-0, CMP, CBCA ####[facility] ([id number])[address] [place] [address]TDG (Bld) [#/Vol]6.8 10*3/uLNormal4.0-11.0ProBaylor Scott & White Medical Center – TaylorComment on above:Performed By: #### 94538-0, CMP, CBCA ####[facility] ([id number])[address] [place] [address]SAHGKBLIKMUVJ METABOLIC PANELon 43-58-6126Qjaadjr [Mass/Vol]3.9 g/dLNormal3.2-5.3ProMedica Sharp Memorial HospitalComment on above:Performed By: #### SHARONDA, 6-3, 2986-8 #### [facility] ([id number]) [address], [address] [place], [place] [address]DYD [Catalytic activity/Vol]45 U/VWotbzt35-372UjqIpqgmoKindred Hospital DaytonComment on above:Performed By: ###Catalino MCDONOUGH, 3015-3, 2986-8 #### [facility] ([id number]) [address], [address] [place], [place] [address]SPM [Catalytic activity/Vol]21 U/LNormal0-40ProBaylor Scott & White Medical Center – TaylorComment on above:Performed By: ###Catalino MCDONOUGH 6-3, 2986-8 #### [facility] ([id number]) [address], [address] [place], [place] [address]Hcazp gap [Moles/Vol]8 mmol/LNormal5-15ProBaylor Scott & White Medical Center – TaylorComment on above:Performed By: #### SHARONDA, 6-3, 2986-8 #### [facility] ([id number]) [address], [address] [place] [address]BHR [Catalytic activity/Vol]16 U/LNormal0-41ProBaylor Scott & White Medical Center – TaylorComment on above:Performed By: ###Catalino MCDONOUGH, 3015-3, 2985-8 #### [facility] ([id number]) [address], [address] [place] [address]Quzboiggb [Mass/Vol]0.3 mg/dLNormal0.3-1.2PKnox Community HospitalComment on above:Performed By: ###Catalino MCDONOUGH, 3015-3, 2985-8 #### [facility] ([id number]) [address], [address] [place] [address]Yaqwjgi [Mass/Vol]8.8 mg/dLNormal8.5-10.5PKnox Community HospitalComment on above:Performed By: ###Catalino MCDONOUGH 3015-10, 2985-8 #### [facility] ([id number]) [address], [address] [place] [address]Mswabbqz [Moles/Vol]106 mmol/UQoqsdk74-963QxiKklrcjBaylor Scott & White Medical Center – TaylorComment on above:Performed By: ###Catalino MCDONOUGH, 3, 298-8 #### [facility] ([id number]) [address], [address] [place] [address]WE7 [Moles/Vol]25 mmol/OXqulfj97-02BrcJbzxmwKnox Community Hospital Comment on above:Performed By: ###Catalino MCDONOUGH, 3, 2985-8 #### [facility] ([id number]) [address], [address] [place], [place] [address]Stfpqmneml [Mass/Vol]1.14 mg/dLNormal0.70-1.20ProBaylor Scott & White Medical Center – TaylorComment on above:Result Comment: METHOD TRACEABLE TO IDMS STANDARD Performed By: ###Catalino MCDONOUGH, 3015-3, 298-8 #### [facility] ([id number]) [address], [address] [place], [place] [address]ISM/1.73 sq M.predicted among non-blacks MDRD (S/P/Bld) [Vol rate/Area]79 mL/min/{1.73_m2}Normal>59ProBaylor Scott & White Medical Center – TaylorComment on above:Result Comment: Reported eGFR is based on the CKD-EPI 2020 equation that does not use a race coefficient.Performed By: ###Catalino MCDONOUGH, 3015-3, 2985-8 #### [facility] ([id number]) [address] [address] [place] [address]Amusmak [Mass/Vol]106 mg/oUIcqs98-51PitCbulfzKindred Hospital Dayton Comment on above:Performed By: ###Catalino MCDONOUGH, 3015-10, 68 #### [facility] ([id number]) [address] [address] [place], [place] [address]Blruzsxvg [Moles/Vol]4.3 mmol/LNormal3.5-5.0ProBaylor Scott & White Medical Center – TaylorComment on above:Performed By: ###Catalino MCDONOUGH 3015-10, 8 #### [facility] ([id number]) [address] [address] [place] [address]Auipodk [Mass/Vol]6.4 g/dLNormal6.0-8.0ProBaylor Scott & White Medical Center – TaylorComment on above:Performed By: ###Catalino MCDONOUGH, 3, 8 #### [facility] ([id number]) [address] [address] [place] [address]Ltwfty [Moles/Vol]139 mmol/ZIrxiid275-292UsiHeeoun Fremont HospitalComment on above:Performed By: ###Catalino MCDONOUGH, 3, 6-8 #### [facility] ([id number]) [address] [address] [place] [address]Quwd nitrogen [Mass/Vol]16 mg/dLNormal5-23ProBaylor Scott & White Medical Center – TaylorComment on above:Performed By: ###Catalino MCDONOUGH, 3016-3, 2986-8 #### [facility] ([id number]) [address] [place], [place] [address]UPRFASANUrl [id number] [Mass/Vol]1.9 mg/dLNormal1.8-2.6 [facility] HospitalComment on above:Performed By: ###Catalino MCDONOUGH, 3016-3, 2986-8 #### [facility] ([id number]) [address], [address] [place], [place] [address]FZOCH CULTUREon [id number] identified Aer cx Nom (Bld) SPECIMEN NOTES LAC 10ML CULTURE RESULTS NO GROWTH 5 DAYSNoCity HospitalComment on above:Performed By: ###Catalino MCDONOUGH, 6-3, 2986-8 #### [facility] ([id number]) [address] [place], [place] [address]Ioparjzf identified Aer cx Nom (Bld)SPECIMEN NOTES RAC 10ML CULTURE RESULTS NO GROWTH 5 DAYSNormalKindred Hospital DaytonComment on above:Performed By: ###Catalino MCDONOUGH, 3016-3, 2986-8 #### [facility] ([id number]) [address], [address] [place], [place] [address]FLV AND AUTO DIFFon [id number] BASOPHIL0.0 X10E9/LNormal 0.0-0.2[facility] Memorial HospitalComment on above:Performed By: #### CBCA, 56133-8, 5643-2, CMP, 52820-4 #### [facility] ([id number]) [address] [place] [address], FIRST FLOOR [place], [place] [address]TJCEVIAN NEUTROPHIL2.8 X10E9/LNormal1.5-6.6[facility] HospitalComment on above:Performed By: #### CBCA, 52961-6, 5643-2, CMP, 24947-0 #### [facility] ([id number]) [address] [place] [address]Wacucelxm/100 WBC (Bld)0.5 %NormalKindred Hospital Dayton Comment on above:Performed By: #### CBCAbhi, 86573-1, 5643-2, CMP, 24333-0 #### [facility] ([id number]) [address] [place] [address]Upvgebkmnpg (Bld) [#/Vol]0.1 10*3/uLNormal0.0-0.4[facility] Hospital DaytonComment on above:Performed By: #### CBCAbhi, 47020-1, 5643-2, CMP, 18728-1 #### [facility] ([id number]) [address] [place] [address]Fwbtercoazv/100 WBC (Bld)1.9 %NormalKindred Hospital Dayton Comment on above:Performed By: #### CBCAbhi, 61988-2, 5643-2, CMP, 56480-2 #### [facility] ([id number]) [address] [place] [address]Qxqbvbgkebk distribution width (RBC) [Ratio]12.9 %Normal 11.5-15.0[facility] Hospital DaytonComment on above:Performed By: #### CBCA, 29880-0, 5643-2, CMP, 72673-7 #### [facility] ([id number]) [address] [place] [address]Suntvpzbog (Bld) [Volume fraction]36.2 %Kcv27-07GzpFovprpBaylor Scott & White Medical Center – TaylorComment on above:Performed By: #### CBCA, 33272-8, 5643-2, CMP, 65699-5 #### [facility] ([id number]) [address] [place] [address] 38996Kynipgxjpy (Bld) [Mass/Vol]12.6 g/dLLow13.0-17.0Kindred Hospital DaytonComment on above:Performed By: #### CBCA, 43457-0, 5643-2, CMP, 42339-3 #### [facility] ([id number]) [address] [place] [address] 36744Mxwnkmprtlx (Bld) [#/Vol]1.9 10*3/uLNormal1.0-3.5ProMedica Sharp Memorial HospitalComment on above:Performed By: #### CBCAbhi, 36991-6, 5643-2, CMP, 10489-8 #### [facility] ([id number]) [address] [place] [address] 57288Jhrqpbluies/100 WBC (Bld)37.0 %NormalProBaylor Scott & White [facility] Center – [facility] Comment on above:Performed By: #### CBCAbhi, 05839-3, 5643-2, CMP, 46522-3 #### [facility] ([id number]) [address] [place] [address] 09978GFK (RBC) [Entitic mass]30.1 leFeptlt86-62YrvBsubdjBaylor Scott & White Medical Center – TaylorComment on above:Performed By: #### CBCAbhi, 50896-1, 5643-2, CMP, 85126-6 #### [facility] ([id number]) [address] [place] [address] 76067RTVY (RBC) [Mass/Vol]34.7 g/bFMgpedp88-02JjuSissurBaylor Scott & White Medical Center – TaylorComment on above:Performed By: #### CBCA, 82450-9, 5643-2, CMP, 86989-8 #### [facility] ([id number]) [address] [place] [address] 99478ACP (RBC) [Entitic vol]87 yAKxjyes00-770HoyShtxsfKindred Hospital DaytonComment on above:Performed By: #### ANGELES, , 5643-2, CMP, 08800-2 #### [facility] ([id number]) [address] [place] [address] 52564Kbuiprokx (Bld) [#/Vol]0.4 10*3/uLNormal0-0.9Kindred Hospital DaytonComment on above:Performed By: #### ANGEELS, , 5643-2, CMP, 74263-5 #### [facility] ([id number]) [address] [place] [address] 37583Qbizzpeps/100 WBC (Bld)7.0 %NormalKindred Hospital Dayton Comment on above:Performed By: #### ANGELES, , 43-2, CMP, 81640-8 #### [facility] ([id number]) [address] [place] [address] 92698Qoomjnsqmec/100 WBC (Bld)53.6 %[facility] Comment on above:Performed By: #### ANGELES, , 43-2, CMP, 79204-7 #### [facility] ([id number]) [address] [place] [address] 50298Ehzftwxm mean volume (Bld) [Entitic vol]9.2 fLNormal7-12 [facility]red Hospital DaytonComment on above:Performed By: #### ANGELES, 46735-0, 5643-2, CMP, 70298-2 #### [facility] ([id number]) [address] [place] [address] 27450Hnfupojix (Bld) [#/Vol]246 10*3/bVJbynkz127-810UmlErihqz [facility]remont HospitalComment on above:Performed By: #### CBCAbhi, 93709-6, 5643-2, CMP, 39711-3 #### [facility] ([id number]) [address] [place] [address] 35016YNP COUNT4.18 X10E12/LNormal4.10-5.70[facility] Comment on above:Performed By: #### ANGELES, 03135-4, 5643-2, CMP, 23259-7 #### [facility] ([id number]) [address] [place] [address] 68732HJW (Bld) [#/Vol]5.2 10*3/uLNormal4.0-11.0ProBaylor Scott & White Medical Center – TaylorComment on above:Performed By: #### ANGELES, 81790-9, 5643-2, CMP, 09883-6 #### [facility] ([id number]) [address] [place] [address] 42638WSJGOMAGXMJFP METABOLIC PANELon 33-23-2603Gyvlvek [Mass/Vol]4.6 g/dLNormal3.2-5.3ProMedPromise Hospital of East Los AngelesComment on above:Performed By: #### ANGELES, 58949-7, 5643-2, CMP, 27289-3 #### [facility] ([id number]) [address] [place] [address] 57888JTI [Catalytic activity/Vol]48 U/NKgvbcz51-922LqhGjdhucBaylor Scott & White Medical Center – TaylorComment on above:Performed By: #### CBCAbhi, 68039-1, 5643-2, CMP, 13551-8 #### [facility] ([id number]) [address] [place] [address] 00341QET [Catalytic activity/Vol]22 U/LNormal0-40ProBaylor Scott & White Medical Center – TaylorComment on above:Performed By: #### ANGELES, 20780-0, 5643-2, CMP, 58568-3 #### [facility] ([id number]) [address] [place] [address], [place] [address]Hsqos gap [Moles/Vol]9 mmol/LNormal5-15ProBaylor Scott & White Medical Center – TaylorComment on above:Performed By: #### ANGELES, 25022-1, 5643-2, CMP, 15391-5 #### [facility] ([id number]) [address] [place] [address], [place] [address]EGI [Catalytic activity/Vol]19 U/LNormal0-41ProBaylor Scott & White Medical Center – TaylorComment on above:Performed By: #### ANGELES, 82342-9, 5643-2, CMP, 95207-7 #### [facility] ([id number]) [address] [place] [address], [place] [address]Idshezndn [Mass/Vol]0.6 mg/dLNormal0.3-1.2PKnox Community HospitalComment on above:Performed By: #### ANGELES, , 5643-2, CMP, 22660-7 #### [facility] ([id number]) [address] [place] [address], [place] [address]Fppzjws [Mass/Vol]9.7 mg/dLNormal8.5-10.5PKnox Community HospitalComment on above:Performed By: #### ANGELES, , 5643-2, CMP, 87861-9 #### [facility] ([id number]) [address] [place] [address], [place] [address]Zatcysam [Moles/Vol]102 mmol/IOxdpaz47-411ThaSjewlbBaylor Scott & White Medical Center – TaylorComment on above:Performed By: #### ANGELES, , 5643-2, CMP, 50929-3 #### [facility] ([id number]) [address] [place] [address], [place] [address]NA4 [Moles/Vol]26 mmol/AHqwzxp98-39KdkPpwehiKnox Community Hospital Comment on above:Performed By: #### ANGELES, , 5643-2, [facility], 68872-9 #### [facility] ([id number]) [address] [place] [address] 07825Iregmsxgjx [Mass/Vol]1.79 mg/dLHigh0.70-1.20ProBaylor Scott & White Medical Center – TaylorComment on above:Result Comment: METHOD TRACEABLE TO IDMS STANDARD Performed By: #### ANGELES, , 5643-2, [facility], 66676-0 #### [facility] ([id number]) [address] [place] [address] 07251SDH/1.73 sq M.predicted among non-blacks MDRD (S/P/Bld) [Vol rate/Area]46 mL/min/{1.73_m2}Low>59ProBaylor Scott & White Medical Center – TaylorComment on above: Result Comment: Reported eGFR is based on the CKD-EPI 2020 equation that does not use a race coefficient.Performed By: #### ANGELES, , 5643-2, [facility], 43010- 7 #### [facility] ([id number]) [address] [place] [address] 32201Nfhhrtn [Mass/Vol]93 mg/eMNisjrn50-06ImdDgzmwqBaylor Scott & White Medical Center – [facility] Comment on above:Performed By: #### ANGELES, , 5643-2, [facility], 26638-5 #### [facility] ([id number]) [address] [place] [address] 79604Sjgvnquof [Moles/Vol]3.6 mmol/LNormal3.5-5.0ProBaylor Scott & White Medical Center – TaylorComment on above:Performed By: #### ANGELES, , 5643-2, [facility], 13654-6 #### [facility] ([id number]) [address] [place] [address] 93308Oftmtyo [Mass/Vol]7.0 g/dLNormal6.0-8.0[facility]red Hospital DaytonComment on above:Performed By: #### ANGELES, 60396-3, 5643-2, [facility], 67176-1 #### [facility] ([id number]) [address] [place] [address] 14940Dsbqsb [Moles/Vol]137 mmol/VEqsaea332-446ZvfTycgdv [facility]remont HospitalComment on above:Performed By: #### ANGELES, 84101-2, 5643-2, [facility], 36831-2 #### [facility] ([id number]) [address] [place] [address] 89357Jvap nitrogen [Mass/Vol]19 mg/dLNormal5-23ProBaylor Scott & White Medical Center – TaylorComment on above:Performed By: #### ANGELES, 71450-1, 5643-2, [facility], 59087-6 #### [facility] ([id number]) [address] [place] [address] 09815TA BRAIN WO CONTon 94-23-9149WA BRAIN WO CONTCT BRAIN WO CONT CT BRAIN WO CONT [...] by Avtar Barnes MD on 11/28/2024 3:00 PMNormalKindred Hospital Dayton DRUG SCREEN, URINEon 38-71-0028ELEJLLBJBAE/METHAMPNegativeNormalNEGKindred Hospital DaytonComment on above:Result Comment: AMPH/METH screening cut off = 1000 ng/mLPerformed By: #### DSU ####[facility] ([id number])[address] [place] [address], [facility], [place] [address]XKGQBPVDFMXHPizexpfqEvzdhsAOD [facility] DaytonCombeaumont hospital on above:Result Comment: Barbiturates screening cut off value = 200 ng/mLPerformed By: #### DSU ####[facility] ([id number])[address] [place] [address], [place] [address] BENZODIAZEPINESNegativeNormalNEGProBaylor Scott & White Medical Center – TaylorCombeaumont hospital on above: Result Comment: Benzodiazepines screening cut off value = 200 ng/mLPerformed By: #### DSU ####[facility] ([id number])[address] [place] [address], [facility], [place] [address]ADMWDWZEDKJMUavjxrivXzxzcnKWXVeeFkqhup [facility] Comment on above:Result Comment: Cannabinoids/THC screening cut off value = 50 ng/mLPerformed By: #### DSU ####[facility] ([id number])[address] [place] [address], [facility], [place] [address]MBWTILF METABOLITENegativeNormalNEG [facility] DaytonCombeaumont hospital on above:Result Comment: Cocaine screening cut off value = 300 ng/mLPerformed By: #### DSU ####[facility] ([id number])[address] [place] [address], [place] [address]HZWVKNWLzomgcuy NormalNEGProBaylor Scott & White Medical Center – TaylorCombeaumont hospital on above:Result Comment: Ecstasy screening cut off value = 500 ng/mL This report is intended for use in clinical monitoring or management of patients.Performed By: #### DSU ####[facility] ([id number])[address] [place] [address], [place] [address] METHADONENegativeNormalNEGProBaylor Scott & White Medical Center – TaylorCombeaumont hospital on above:Result Comment: Methadone screening cut off value = 300 ng/mL.Performed By: #### DSU ####[facility] ([id number])[address] [place] [address] 00913MOSYPFREzifblkrYivnakOXOCqoDmvuta [facility]ont HospitalComment on above:Result Comment: Opiates screening cut off value = 300 ng/mL NOTE: This test is used for the detection of codeine, hydrocodone (>1000 ng/mL), morphine and hydromorphone (>900 ng/mL) in urine.Performed By: #### DSU ####[facility] ([id number])[address] [place] [address] 33664PZLOHOEVBBqoclfrvZmrdpsfzRBRMafRkaqdo [facility] HospitalComment on above: Result Comment: Confirmation available upon request. Oxycodone screening cut off value = 300 ng/mL NOTE: This test is used for the detection of oxycodone and oxymorphone in urine.Performed By: #### DSU ####[facility] ([id number])[address] [place] [address] PHENCYCLIDINENegativeNormalNEGKindred Hospital DaytonCombeaumont hospital on above:Result Comment: Phencyclidine screening cut off value = 25 ng/mLPerformed By: #### DSU ####[facility] ([id number])[address] [place] [address]FKIMYSMva 51-26-9349Biubtql [Mass/Vol]mg/dLNormal0.00-0.08 [facility] HospitalCombeaumont hospital on above:Result Comment: This report is intended for use in clinical monitoring or management of patients.Performed By: #### CBCA, 07746-5, 5643-2, CMP, 98976-8 ####[facility] ([id number])[address] [place] [address] 19000Masdgrh (P denita) [Moles/Vol]on 34-83-5902DZSLLJT W/REFLEX1.8 mmol/LNormal0.4-2.0[facility] DaytonCombeaumont hospital on above:Result Comment: Result did not trigger repeat Lactate, re-order if needed.Performed By: #### 74670-2 ####[facility] ([id number])[address] [place] [address], [place] [address]MCBUSSMKCfr 04-52-8326Mgzjnmjjs [Mass/Vol]2.1 mg/dLNormal1.8-2.6[facility] Comment on above:Performed By: #### ANGELES, 15840-0, 5643-2, [facility], 41077-8 ####[facility] ([id number])[address] [place] [address], [place] [address]Flgcqegt I.cardiac High sensitivity method [Mass/Vol]on HOUR TROP I, HIGH SENSITIVITY<2Normal<21[facility] Comment on above:Performed By: #### 15466-1 ####[facility] ([id number])[address] [place] [address] 53273XXHWZZQR I, HIGH SENSITIVITY<2Normal<21ProBaylor Scott & White Medical Center – TaylorComment on above:Performed By: #### ANGELES, 30407-6, 5643-2, [facility], 80700-3 ####[facility] ([id number])[address] [place] [address] 49758JWAEUQSPJNuc 55-20-0668Lmfueljvv Ql (U)NegativeNormalNEGKindred Hospital DaytonComment on above:Performed By: #### UA ####[facility] ([id number])[address] [place] [address] 97452JHWWH/HGBNegativeNormalNEGKindred Hospital DaytonComment on above:Performed By: #### UA ####[facility] ([id number])[address] [place] [address] 37483Vvlis (U)YELLOWNormalYELLOWProBaylor Scott & White Medical Center – TaylorComment on above:Performed By: #### UA ####[facility] ([id number])[address] [place] [address] 73880Gvxnrsf Ql (U)NegativeNormalNEGProCovenant Medical Center on above:Performed By: #### UA ####[facility] ([id number])[address] [place] [address] 85282Doxfofa Ql (U) NegativeNormalNEGProBaylor Scott & White Medical Center – TaylorComment on above:Performed By: #### UA ####[facility] ([id number])[address] [place] [address], [place] [address]Zpomabqmh esterase Test strip Ql (U)NegativeNormalNEG [facility] DaytonComment on above:Performed By: #### UA ####[facility] ([id number])[address] [place] [address] 56721Khmkvon Ql (U)NegativeNormalNEGKindred Hospital DaytonComment on above: Performed By: #### UA ####[facility] ([id number])[address] [place] [address] 35146mH (U)6.0 [pH]Normal5.0-8.5ProMedica Sharp Memorial HospitalComment on above:Performed By: #### UA ####[facility] ([id number])[address] [place] [address] 97108Abtodpr Ql (U) NegativeNormalNEGProBaylor Scott & White Medical Center – TaylorComment on above:Performed By: #### UA ####[facility] ([id number])[address] [place] [address] 11357Kooowvaf gravity (U) [Rel density]1.587Tweyfc4.003-1.035 ProMMercy Hospital BakersfieldComment on above:Performed By: #### UA ####[facility] ([id number])[address] [place] [address] [place] [address]VWKNFHXMKFGWLDBhikbkNHJWGJckNhkhxd [facility] HospitalComment on above: Performed By: #### UA ####[facility] ([id number])[address] [place] [address], [facility] [place], [place] [address]Pfcsafvekmrd Qn (U)0.2 {Xenia'U}/dLNormal <1.1ProMedica Sharp Memorial HospitalComment on above:Performed By: #### UA ####[facility] ([id number])[address] [place] [address], [facility], [place] [address]VGG MACROSCOPIC NURon 26-37-3998RJVOOOTIO NURNegativeNormalNEGKindred Hospital DaytonComment on above:Performed By: #### NUM ####[facility] ([id number])[address] [place] [address], [place] [address] BLOOD/HGB NURNegativeNormalNEGKindred Hospital DaytonComment on above: Performed By: #### NUM ####[facility] ([id number])[address] [place] [address], [facility], [place] [address]BUOJTWT NURNegativeNormalNEGProBaylor Scott & White Medical Center – TaylorComment on above:Performed By: #### NUM ####[facility] ([id number])[address] [place] [address], [facility], [place] [address]GQYBZIF NURNegativeNormalNEGProBaylor Scott & White Medical Center – TaylorComment on above:Performed By: #### NUM ####[facility] ([id number])[address] [place] [address], [facility], [place] [address]HRGIJWYYU ESTERASE NURNegativeNormalNEGKindred Hospital DaytonComment on above:Performed By: #### NUM ####[facility] ([id number])[address] [place] [address], [facility] [place], [place] [address]GYRQWTB BRIANA NegativeNormalNEGProBaylor Scott & White Medical Center – TaylorComment on above:Performed By: #### NUM ####[facility] ([id number])[address] [place] [address] 76394OW NUR5.5Emfefj1.0-8.5PKnox Community HospitalComment on above:Performed By: #### NUM ####[facility] ([id number])[address] [place] [address] 44207BGEXKHG NURNegativeNormalNEGProBaylor Scott & White Medical Center – TaylorComment on above:Performed By: #### NUM ####[facility] ([id number])[address] [place] [address] 63373SMSBRKLB GRAVITY NUR1.494Mnnegb7.003-1.035ProBaylor Scott & White Medical Center – TaylorComment on above: Performed By: #### NUM ####[facility] ([id number])[address] [place] [address] 19262DOPXSGIECSXI NUR0.2 eu/dLNormal<1.1PKnox Community HospitalComment on above:Performed By: #### NUM ####[facility] ([id number])[address] [place] [address] 92537DM CERVICAL SPINE WO CONTRASTon 69-05-3087VW CERVICAL SPINE WO CONTRASTEXAMINATION: CT OF THE CERVICAL SPINE WITHOUT CONTRAST [...] Signed by: Jun Mayers DO 09/19/24 Final resultNormalMercy The Hospital of [facility] 12 leadon 05-70-6749QGKCIVZDQCWPISInova Children's HospitalURINALYSThe Surgical Hospital at Southwoods 39-82-2889Bphtyfbrd Ql (U)NegativeNormalNEG [facility] DaytonComment on above:Performed By: #### UA #### [facility] ([id number]) [address], [address] [place], [place] [address]GVXTZ/HGBNegativeNormalNEGKindred Hospital DaytonComment on above:Performed By: #### UA #### [facility] ([id number]) [address], [address] [place], [place] [address]Rqkjf (U)YELLOWNormalYELLOWProBaylor Scott & White Medical Center – TaylorComment on above:Performed By: #### UA #### [facility] ([id number]) [address], [address] [place], [place] [address]Eupjdsx Ql (U)NegativeNormalNEGProBaylor Scott & White Medical Center – TaylorComment on above:Performed By: #### UA #### [facility] ([id number]) [address], [address] [place], [place] [address]Wmdeomo Ql (U)NegativeNormalNEGProBaylor Scott & White Medical Center – TaylorComment on above:Performed By: #### UA #### [facility] ([id number]) [address], [address] [place], [place] [address]Rervsydzi esterase Test strip Ql (U)NegativeNormalNEGProMedica Cambridge HospitalComment on above:Performed By: #### UA #### [facility] ([id number]) [address], [address] [place], [place] [address]Minuach Ql (U)NegativeNormalNEGKindred Hospital DaytonComment on above:Performed By: #### UA #### [facility] ([id number]) [address], [address] [place], [place] [address]yD (U)6.5 [pH]Normal5.0-8.5PKnox Community HospitalComment on above:Performed By: #### UA #### [facility] ([id number]) [address] [facility], [address] [place] [address]Xmckkzq Ql (U)NegativeNormalNEGKindred Hospital DaytonComment on above:Performed By: #### UA #### [facility] ([id number]) [address] [place] [address], [address] [place], [place] [address]Esyydppv gravity (U) [Rel density]1.675Xocqfb0.003-1.035 Pro[facility] Sharp Memorial HospitalComment on above:Performed By: #### UA #### [facility] ([id number]) [address], [address] [place], [place] [address]FYUHFGZXVCWEITYejgrmHACDFEwoLopmqm [facility] HospitalComment on above:Performed By: #### UA #### [facility] ([id number]) [address], [address] [place], [place] [address]Aiotqgzasjvm (U) [Mass/Vol]mg/dLNormal<1.1PKnox Community HospitalComment on above:Performed By: #### UA #### [facility] ([id number]) [address] [facility], [address] [place], [place] [address]CCFEZ CULTUREon 12-52-8066Vzedenph identified Cx Nom (U)SPECIMEN NOTES URINE RECEIVED WITHOUT PRESERVATIVE CULTURE RESULTS NO GROWTH AT <1000 CFU/mLNormalKindred Hospital DaytonComment on above: Performed By: #### 630-4 #### [facility] ([id number]) [address] [place] [address], [place] [address] [facility] ([id number]) [address], [address] [place], [place] [address]UUPXD METABOLIC PANLon 78-12-7231Glhhk gap [Moles/Vol]10 mmol/L Normal5-15Kindred Hospital DaytonComment on above:Performed By: #### BMP #### [facility] ([id number]) [address], [address] [place], [place] [address] [Mass/Vol]10.0 mg/dLNormal8.5-10.5PKnox Community HospitalComment on above:Performed By: #### BMP #### [facility] ([id number]) [address], [address] [place], [place] [address]Vemdjicj [Moles/Vol]100 mmol/OWpvksw20-114WrjZacrznKindred Hospital DaytonComment on above:Performed By: #### BMP #### [facility] ([id number]) [address], [address] [place], [place] [address]JG0 [Moles/Vol]27 mmol/GHohjcu64-28XuzScwfzwKnox Community Hospital Comment on above:Performed By: #### BMP #### [facility] ([id number]) [address], [address] [place], [place] [address]Syofdxtyvw [Mass/Vol]1.10 mg/dLNormal0.60-1.30[facility]red Hospital DaytonComment on above:Result Comment: METHOD TRACEABLE TO IDMS STANDARD Performed By: #### BMP #### [facility] ([id number]) [address], [address] [place], [place] [address]OUU/1.73 sq M.predicted among non-blacks MDRD (S/P/Bld) [Vol rate/Area]83 mL/min/{1.73_m2}Normal>59ProBaylor Scott & White Medical Center – TaylorComment on above:Result Comment: Reported eGFR is based on the CKD-EPI 2020 equation that does not use a race coefficient.Performed By: #### BMP #### [facility] ([id number]) [address] [address] [place], [place] [address]Dotbaok [Mass/Vol]98 mg/cGWlqjmf21-96SfbBzppgfKindred Hospital Dayton Comment on above:Performed By: #### BMP #### [facility] ([id number]) [address] [address]Rhyskrjnc [Moles/Vol]3.8 mmol/LNormal3.5-5.0ProBaylor Scott & White Medical Center – TaylorComment on above:Performed By: #### BMP #### [facility] ([id number]) [address] [address] [place], [place] [address]Kzytkg [Moles/Vol]137 mmol/OQzqrpl700-481RajWthnmq Fremont HospitalComment on above:Performed By: #### BMP #### [facility] ([id number]) [address] [address]Pssx nitrogen [Mass/Vol]16 mg/dLNormal5-23ProBaylor Scott & White Medical Center – TaylorComment on above:Performed By: #### BMP #### [facility] ([id number]) [address] [address]Gteew Metabolic Panelon 81-65-5380Pkfdg gap [Moles/Vol]10 mmol/L 5 - 15 mmol/LProMedica Health SystemCalcium [Mass/Vol]10.0 mg/dL8.5 - 10.5 mg/dL [facility] Health SystemChloride [Moles/Vol]100 mmol/L98 - 109 mmol/LProMedica Health SystemCO2 [Moles/Vol]27 mmol/L22 - 32 mmol/LProMedica Health System Creatinine [Mass/Vol]1.10 mg/dL0.60 - 1.30 mg/dLMercy Health Tiffin HospitalComment on above:METHOD TRACEABLE TO IDRI STANDARDeGFR (CKD-EPI)non-race [id number]- [facility] Hospital CenterComment on above: Reported eGFR is based on the CKD-EPI 2020 equation that does not use a race coefficient. Glucose [Mass/Vol]98 mg/dL65 - 99 mg/dLMercy Health Tiffin HospitalPotassium [Moles/Vol]3.8 mmol/L3.5 - 5.0 mmol/LPrUCHealth Broomfield Hospital Health SystemSodium [Moles/Vol] 137 mmol/L134 - 146 mmol/[facility] Children's HospitalUrea nitrogen [Mass/Vol]16 mg/dL5 - 23 mg/dLHaven Behavioral HealthcareHGB A1C (GLYCO-HGB)on 38-36-6259Mhscydu [Mass/Vol]111 mg/dLNormalKindred Hospital DaytonComment on above:Performed By: #### SHARONDA, 3016-3, 2986-8 #### [facility] ([id number]) [address] [place] [address], [address] [place], [place] [address]YzQ5m (Bld) [Mass fraction]5.5 %Normal4.4-5.6Kindred Hospital DaytonComment on above:Result Comment: NOTE ADA Guidelines Result HgbA1c Normal : less than 5.7 % Prediabetes : 5.7 % to 6.4 % Diabetes : > 6.4 % Use with caution in patients with abnormal hemoglobin variants as the half-life of red blood cells and in vivo glycation rates are affected.Performed By: ###Catalino MCDONOUGH, 3016-3, 2986-8 #### [facility] ([id number]) [address] [place] [address], [address] [place], [place] [address]AGL Qnon 79-02-9204XUB0.75 uIU/mLNormal0.49-4.67Kindred Hospital DaytonComment on above:Performed By: ###Catalino MCDONOUGH, 3016-3, 2986-8 #### [facility] ([id number]) [address] [place], [place] [address]Fylnrlvmuucn [Mass/Vol]on 94-72-2710DDTIUCBXRDIT1.39 ng/mLNormal 1.68-7.46Kindred Hospital DaytonComment on above:Performed By: #### HA1C, 3016-3, 2986-8 #### [facility] ([id number]) [address] [address] [place], [place] [address]PDWI DIAGNOSTIC BILATERAL W CADon [id number] DIAGNOSTIC BILATERAL W CADMAMM DIAGNOSTIC BILATERAL W CAD EXAM: MAMM DIAGNOSTIC [...] circumscribed nodules identified at the site of thereported decreasing palpable abnormality. Margins are at least [...] 03/08/2024 2:02 PM 2 a F/U REFER [facility]Kind[facility] DaytonUS BREAST LT LIMITEDon [id number] BREAST LT LIMITEDUS BREAST LT LIMITED EXAM: US BREAST LT [...] circumscribed nodules identified at the site of thereported decreasing palpable abnormality. Margins are at least [...] on 03/08/2024 2:02 PM 2 F/[facility]Com[facility] panelon 77-08-0661Mhzekrg [Mass/Vol]4.9 g/dL3.2 - 5.3 g/dLProMedica Health SystemALP [Catalytic activity/Vol]48 U/L39 - 130 U/LProMedica Health SystemALT No additional P-5'-P [Catalytic activity/Vol]21 U/L0 - 40 U/LProMedica Health SystemAnion gap [Moles/Vol]8 mmol/L5 - 15 mmol/LProMedica Health SystemAST [Catalytic activity/Vol]16 U/L0 - 41 U/LProMedica Health SystemBilirubin [Mass/Vol]0.6 mg/dL0.3 - 1.2 mg/dLProMedica Health SystemCalcium [Mass/Vol]10.0 mg/dL8.5 - 10.5 mg/dLProMedica Health SystemChloride [Moles/Vol]101 mmol/L98 - 109 mmol/LProMedica Health SystemCO2 [Moles/Vol]28 mmol/L22 - 32 mmol/LProMedica Health SystemCreatinine [Mass/Vol]1.22 mg/dL0.60 - 1.30 mg/dLMercy Health Tiffin HospitalComment on above:METHOD TRACEABLE TO IDRI STANDARDeGFR (CKD-EPI)non-race sfgkmihir63- PINFPKettering Health – Soin Medical CenterComment on above: Reported eGFR is based on the CKD-EPI 2020 equation that does not use a race coefficient. Glucose [Mass/Vol]103 mg/mZOdot33 - 99 mg/dLMercy Health Tiffin HospitalPotassium [Moles/Vol]4.6 mmol/L3.5 - 5.0 mmol/LProMedlakeland community hospital Health SystemProtein [Mass/Vol] 7.3 g/dL6.0 - 8.0 g/dLThe Outer Banks Hospitalodium [Moles/Vol]137 mmol/L134 - 146 mmol/[facility] SystemUrea nitrogen [Mass/Vol]19 mg/dL5 - 23 mg/dL [facility] Tiffin HospitalLipid 1996 panelon 69-63-6745Vihbeyywjih [Mass/Vol]228 mg/rDIygt159 - 200 mg/dLMercy Health Tiffin HospitalCholesterol in HDL [Mass/Vol]37 mg/dLLow39 - PINF mg/dLMercy Health Tiffin HospitalComment on above: HDL <40 mg/dL - High Risk HDL > or = 40mg/dL- Desirable HDL >60 mg/dL - Negative Risk Cholesterol in LDL [Mass/Vol]RESULT NOT REPORTED DUE TO HIGH TRIGLYCERIDENINF - 130 mg/dLMercy Health Tiffin HospitalCholesterol in VLDL [Mass/Vol]115 mg/dLHigh0 - 30 mg/dLMercy Health Tiffin HospitalCholesterol.total/Cholesterol in HDL [Mass ratio] 6.2 {ratio}High1.0 - 5.0Mercy Health Tiffin HospitalTriglyceride [Mass/Vol]577 mg/dL High27 - 150 mg/dLMercy Health Tiffin HospitalNo Panel Informationon 02-10-2024 Interpretation and review of laboratory resultsAbnormalSelect Specialty Hospital - Camp HillVitamin D 25 hydroxyon 55-17-3843Mhvwtzl D+Metabolites [Mass/Vol]61.5 ng/mL30 - 100 ng/mLProMedica Health SystemComment on above: Vitamin D status 25 [place] Vitamin D Deficiency <20 ng/mL Insufficiency 20-29 ng/mL Sufficiency 30-100 ng/mL Toxicity >100 ng/mL NOTE: A pediatric reference range has not been established by the mortgage loan funder of this kit. The [place] [employer] recommends a Vitamin D level of = or >20ng/mL in infants and children. Vitamin D+Metabolites [Mass/Vol]on 97-54-1743QfkBjpaniKettering Health – Soin Medical Center COMPREHENSIVE METABOLIC PANELon 56-57-6193Vpgsrrq [Mass/Vol]4.9 g/dLNormal 3.2-5.3PMetroHealth Parma Medical CenterComment on above:Performed By: #### VALORIE, [address]- , 2088-08, 71935-1 #### [facility] ([id number]) [address] [place], [place] [address]KEP [Catalytic activity/Vol]48 U/QSaftjh15-034SunTktfvw [place] HospitalComment on above:Performed By: #### VALORIE, 90603-5, 2088-08, 35517-0 #### [facility] ([id number]) [address] [place], [place] [address]ZTG [Catalytic activity/Vol]21 U/LNormal0-40ProSumma HealthComment on above:Performed By: #### VALORIE, 47624-9, 2088-08, 77408-8 #### [facility] ([id number]) [address] [place], [place] [address]Bamuw gap [Moles/Vol]8 mmol/LNormal5-15[facility] Comment on above:Performed By: #### VALORIE, 96780-9, 2088-08, 55116-9 #### [facility] ([id number]) [address] [place], [place] [address]SOZ [Catalytic activity/Vol]16 U/LNormal0-41ProOhiohealthca [place] HospitalComment on above:Performed By: #### VALORIE, , 2088-08, 33259-3 #### [facility] ([id number]) [address], [address] [place], [place] [address]Fvtpzydxx [Mass/Vol]0.6 mg/dLNormal0.3-1.2ProMedMercy Health Lorain Hospital HospitalComment on above:Performed By: #### VALORIE, , 2088-08, 61384-0 #### [facility] ([id number]) [address], [address] [place], [place] [address]Mxgieor [Mass/Vol]10.0 mg/dLNormal8.5-10.5PPike Community Hospital HospitalComment on above:Performed By: #### VALORIE, , 2088-08, 00011-1 #### [facility] ([id number]) [address], [address] [place], [place] [address]Ibetvrgu [Moles/Vol]101 mmol/BUguiwy85-026CnhXsggwo [place] HospitalComment on above:Performed By: #### VALORIE, , 2088-08, 41395-4 #### [facility] ([id number]) [address] [place], [place] [address]MA1 [Moles/Vol]28 mmol/LOqckzg28-03VtxOydvog [facility] Comment on above:Performed By: #### VALORIE, , 2088-08, 99339-5 #### [facility] ([id number]) [address] [place], [place] [address]Djyqyhavaw [Mass/Vol]1.22 mg/dLNormal0.60-1.30ProAshtabula County Medical Center HospitalComment on above:Result Comment: METHOD TRACEABLE TO IDMS STANDARD Performed By: #### VALORIE, , 2088-08, #### [facility] ([id number]) [address] [place], [place] [address]XUA/1.73 sq M.predicted among non-blacks MDRD (S/P/Bld) [Vol rate/Area]74 mL/min/{1.73_m2}Normal>59ProSumma HealthComment on above: Result Comment: Reported eGFR is based on the CKD-EPI 2020 equation that does not use a race coefficient.Performed By: #### VALORIE, , 2088-08, #### [facility] ([id number]) [address], [address] [place], [place] [address]Lllovfg [Mass/Vol]103 mg/wXSpwz21-07WnnTqgtevTriHealth Bethesda [facility] Hospital Comment on above:Performed By: #### VALORIE, , 2088-08, #### [facility] ([id number]) [address], [address] [place], [place] [address]Ixnbatekl [Moles/Vol]4.6 mmol/LNormal3.5-5.0ProSumma HealthComment on above:Performed By: #### VALORIE, , 2088-08, 75330-8 #### [facility] ([id number]) [address] [place], [place] [address]Ylkjlhq [Mass/Vol]7.3 g/dLNormal6.0-8.0[facility] Comment on above:Performed By: #### VALORIE, , 2088-08, 40024-2 #### [facility] ([id number]) [address], [address] [place], [place] [address]Wsezqp [Moles/Vol]137 mmol/UBufeyf662-166MqjLjtxci [place] HospitalComment on above:Performed By: #### VALORIE, , 2088-08, 96695-6 #### [facility] ([id number]) [address], [address] [place], [place] [address]Wzce nitrogen [Mass/Vol]19 mg/dLNormal5-23ProAshtabula County Medical Center HospitalComment on above:Performed By: ###Catalino EUGENE, 72909-7, 2088-08, 42171-2 #### [facility] ([id number]) [address], [address] [place], [place] [address]SFBLKK LDLon 63-78-4303Hxufvpxhwwn in LDL [Mass/Vol]79 mg/dL Normal<130ProAshtabula County Medical Center HospitalComment on above:Result Comment: LDL <100 mg/dL - Desirable LDL 130-159 mg/dL - Borderline High Risk LDL >160 mg/dL - High Risk Performed By: ###Catalino EUGENE, 20512-2, 2088-08, 60348-3 #### [facility] ([id number]) [address] [place], [place] [address]Xrmrh 1996 panelon 79-93-3154Ueefhyxplas [Mass/Vol]228 mg/dLHigh 150-200ProAshtabula County Medical Center HospitalComment on above:Performed By: ###Catalino EUGENE, 69926- 1, 2088-08, 36255-5 #### [facility] ([id number]) [address] [place], [place] [address]Wrstmuuhluk in HDL [Mass/Vol]37 mg/dLLow>39ProAshtabula County Medical Center HospitalComment on above:Result Comment: HDL <40 mg/dL - High Risk HDL > or = 40mg/dL- Desirable HDL >60 mg/dL - Negative Risk Performed By: ###Catalino EUGENE, , 2088-08, 77472-7 #### [facility] ([id number]) [address] [place], [place] [address]Jgvkzbrydul in VLDL [Mass/Vol]115 mg/dLHigh0-30ProSumma HealthComment on above:Performed By: #### VALORIE, , 2088-08, 89575-1 #### [facility] ([id number]) [address] [place], [place] [address]MDSQDHZIILG:HDL6.2High1.0-5.0ProAshtabula County Medical Center HospitalComment on above:Performed By: #### VALORIE, , 2088-08, 03555-8 #### [facility] ([id number]) [address] [place], [place] [address]OQA (CALC)RESULT NOT REPORTED DUE TO HIGH TRIGLYCERIDENormal<130 [facility] HospitalComment on above:Performed By: ###Catalino EUGENE, , , 87941-3 #### [facility] ([id number]) [address] [place], [place] [address]Rzgupuyruqom [Mass/Vol]577 mg/mDHzkm76-931HsgKdhmuh [place] HospitalComment on above:Performed By: ###Catalino EUGENE, , 2088-08, 18576-8 #### [facility] ([id number]) [address] [place], [place] [address]Elmafup D+Metabolites [Mass/Vol]on 91-63-1749EQXNFPL D 25 HYD TOT61.5 ng/yJHmuwee49-349HhjWieyal [place] HospitalComment on above:Result Comment: Vitamin D status 25 [place] Vitamin D Deficiency <20 ng/mL Insufficiency 20-29 ng/mL Sufficiency 30-100 ng/mL Toxicity >100 ng/mL NOTE: A pediatric reference range has not been established by the mortgage loan funder of this kit. The [place] [employer] recommends a Vitamin D level of = or >20ng/mL in infants and children.Performed By: #### CMP, 53526-2, 2089-1, 78577-3 #### [facility] ([id number]) [address], [address] [place], [place] [address]EMG CERVICAL SPINE WO CONTRASTon 81-14-9533KBI CERVICAL SPINE WO CONTRASTEXAMINATION: MRI OF THE CERVICAL SPINE WITHOUT CONTRAST [...] stenosis or right foraminal narrowing. There is ndxb-jc-tgqslxqx left foraminal narrowing. C5-C6: There is uncovertebral and facet hypertrophy. There is no canal stenosis or foraminal narrowing. C6-C7: There is a disc osteophyte complex with uncovertebral and facet hypertrophy. There is no canal stenosis or right foraminal narrowing. There is iktb-ar-tawealte left foraminal narrowing. C7-T1: There is a disc osteophyte complex with uncovertebral and facet hypertrophy. There is no canal stenosis or right foraminal narrowing. There is severe left foraminal narrowing. IMPRESSION: Multilevel degenerative change with foraminal narrowing as described above. Hardware fixation anteriorly and posteriorly from C4-C6 without evidence for complication. Interpreted by: Edgar Ray MD Signed by: Edgar Ray MD 10/07/23 Final resultNormalMagruder Memorial HospitalXR CSPINE MIN 4 VIEWSon 70-53-0045DR CSPINE MIN 4 VIEWSEXAMINATION: XR CSPINE MIN 4 VIEWS HISTORY: Prolapsed [...] Electronically authenticated by: GRETA LOCKHART Date: 2022-12-16 15:[address] [place], [place] [address]XR CSPINE OBL FLEX_EXTon 47-00-9832XG CSPINE OBL FLEX_EXT EXAMINATION: XR CSPINE OBL [...] Electronically authenticated by: GRETA LOCKHART Date: 2022-10-27 15:[address] CenterCOMPREHENSIVE METABOLIC PANELon 88-79-2505Zjejklk [Mass/Vol]4.9 g/dLNormal3.6-5.1Quest DiagnosticsComment on above:Performed By: #### 88611, 7600, 04092, 5363 #### [facility] [place] [address] Wall[address] Hanger Helper: Nicolas Araujo MDAlbumin/Globulin [Mass ratio]2.1 {ratio}Normal 1.0-2.5Quest DiagnosticsComment on above:Performed By: #### 90676, 7600, 47072, 5363 #### [facility] [place] [address] [employer] H[employer] Helper: Nicolas Araujo MDALP [Catalytic activity/Vol]49 U/ZYzdqot00-830 Quest DiagnosticsComment on above:Performed By: #### 51143, 7600, 84980, 5363 #### [facility] [place] [address] [employer] H[employer] Helper: Nicolas Araujo MDALT [Catalytic activity/Vol]14 U/LNormal9-46 Quest DiagnosticsComment on above:Performed By: #### 83511, 7600, 02029, 5363 #### [facility] [place] [address] [employer] H[employer] Helper: Nicolas Araujo MDAST [Catalytic activity/Vol]14 U/RPhunxp81-86 Quest DiagnosticsComment on above:Performed By: #### 34569, 7600, 04547, 5363 #### [facility] [place] [address] [employer] H[employer] Helper: Nicolas Araujo MDBilirubin [Mass/Vol]0.7 mg/dLNormal0.2-1.2 Quest DiagnosticsComment on above:Performed By: #### 95162, 7600, 86201, 5363 #### [facility] of [address], [address] [place] [address] Wallpaper Hanger Helper: Nicolas Araujo MDBUN/CREATININE RATIONOT APPLICABLENormal6-22 Quest DiagnosticsComment on above:Performed By: #### 94324, 7600, 07916, 5363 #### [facility] of [address], [address] [place] [address] Wallpaper Hanger Helper: Nicolas Araujo MDCalcium [Mass/Vol]9.9 mg/dLNormal8.6-10.3Quest DiagnosticsComment on above:Performed By: #### 90249, 7600, 59050, 5363 #### [facility] of [address], [address] [place] [address] Wallpaper Hanger Helper: Nicolas Araujo MDChloride [Moles/Vol]101 mmol/OBnqnzm13-919 Quest DiagnosticsComment on above:Performed By: #### 28700, 7600, 55693, 5363 #### [facility] of [address], [address] [place] [address] Wallpaper Hanger Helper: Nicolas Araujo MDCO2 [Moles/Vol]27 mmol/JMbmhzy58-63Ounxt DiagnosticsComment on above:Performed By: #### 94910, 7600, 84562, 5363 #### [facility] [place] [address] Wall[employer] H[employer] Helper: Nicolas Araujo MDCreatinine [Mass/Vol]1.16 mg/dLNormal0.60-1.35 Quest DiagnosticsComment on above:Performed By: #### 15594, 7600, 13492, 5363 #### [facility] [place] [address] Wall[employer] Hanger Helper: Nicolas Araujo MDeGFR NON-AFR. MYTDHFNP97 mL/min/1.75x4Hkxzsw> OR = 60Quest DiagnosticsComment on above:Performed By: #### 26132, 7600, 06276, 5363 #### [facility] [place] [address] Wall[employer] Hanger Helper: Nicolas Araujo MDGFR/1.73 sq M.predicted among blacks MDRD (S/P/Bld) [Vol rate/Area]88 mL/min/{1.73_m2}Normal> OR = 60[facility] Comment on above:Performed By: #### 98615, 0, 13858, 5363 #### [facility] [place] [address] Wall[employer] Hanger Helper: Nicolas Araujo MDGlobulin (S) [Mass/Vol]2.3 g/dLNormal1.9-3.7 Quest DiagnosticsComment on above:Performed By: #### 82197, 0, 92749, 5363 #### [facility] [place] [address] Wall[employer] H[employer] Helper: Nicolas Araujo MDGlucose [Mass/Vol]93 mg/iUMtetlz77-37Pzzrs DiagnosticsComment on above:Result Comment: Fasting reference intervalPerformed By: #### 61292, 0, 17317, 5363 #### [facility] [place] [address] Wall[employer] Hanger Helper: Nicolas Araujo MDPotassium [Moles/Vol]4.3 mmol/LNormal3.5-5.3 Quest DiagnosticsComment on above:Performed By: #### 42675, 7600, 02221, 5363 #### [facility] [place] [address] Wall[employer] H[employer] Helper: Nicolas Arajuo MDProtein [Mass/Vol]7.2 g/dLNormal6.1-8.1Quest DiagnosticsComment on above:Performed By: #### 87561, 7600, 01766, 5363 #### [facility] [place] [address] Wall[employer] H[employer] Helper: Nicolas Araujo MDSodium [Moles/Vol]137 mmol/HDrrzwr657-731Rafar DiagnosticsComment on above:Performed By: #### 97107, 7600, 12101, 5363 #### [facility] [address], [address] [place] [address] Wallpaper Hanger Helper: Nicolas Araujo MDUrea nitrogen [Mass/Vol]17 mg/dLNormal7-25 Quest DiagnosticsComment on above:Performed By: #### 14014, 7600, 49288, 5363 #### [facility] [address], [address] [place] [address] Wallpaper Hanger Helper: Nicolas Araujo MDLIPID PANEL, STANDARD 60-11-2017Zikwdjrzcmy [Mass/Vol]200 mg/dLHigh<200Quest DiagnosticsComment on above:Order Comment: FASTING:YES FASTING: YESPerformed By: #### 11102, 7600, 23037, 5363 #### [facility] [place] [address] Wall[employer] Hanger Helper: Nicolas Araujo MDCholesterol in HDL [Mass/Vol]38 mg/dLLow> OR = 40Quest DiagnosticsComment on above:Order Comment: FASTING:YES FASTING: YESPerformed By: #### 48776, 7600, 78764, 5363 #### [facility] [place] [address] Wall[employer] Hanger Helper: Nicolas Araujo MDCholesterol in LDL [Mass/Vol]110 mg/dLHigh Quest DiagnosticsComment on above:Order Comment: FASTING:YES FASTING: YESResult Comment: Reference range: <100 Desirable range <100 mg/dL for primary prevention; <70 mg/dL for patients with CHD or diabetic patients with > or = 2 CHD risk factors. LDL-C is now calculated using the Freddie calculation, which is a validated novel method providing better accuracy than the Friedewald equation in the estimation of LDL-C. Jamison PEMBERTON et al. AGUSTO. 2013;310(19): 7945-5619 (http://education.[employer].Bespoke Post/faq/BWR122)Performed By: #### 93449, 7600, 05737, 5363 #### [facility] [address], [address] [place] [address] Wallpaper Hanger Helper: Nicolas MARSHALLholesterol.total/Cholesterol in HDL [Mass ratio]5.3 {ratio}High<5.0Quest DiagnosticsComment on above:Order Comment: FASTING:YES FASTING: YESPerformed By: #### 06420, 7600, 30265, 5363 #### [facility] [address], [address] [place] [address] Wallpaper Hanger Helper: Nicolas HOLLAND HDL QISEPSHSPJR901 mg/dL (calc)High<130 Quest DiagnosticsComment on above:Order Comment: FASTING:YES FASTING: YESResult Comment: For patients with diabetes plus 1 major ASCVD risk factor, treating to a non-HDL-C goal of <100 mg/dL (LDL-C of <70 mg/dL) is considered a therapeutic option.Performed By: #### 62193, 7600, 16881, 5363 #### [facility] [address], [address] [place] [address] Wallpaper Hanger Helper: Nicolas Araujo MDTriglyceride [Mass/Vol]364 mg/dLHigh<150Quest DiagnosticsComment on above:Order Comment: FASTING:YES FASTING: YESResult Comment: If a non-fasting specimen was collected, consider repeat triglyceride testing on a fasting specimen if clinically indicated. Eugenie et al. J. of Clin. Lipidol. 2015;9:129-169.Performed By: #### 65294, 7600, 17924, 5363 #### [facility] [address], [address] [place] [address] Wallpaper Hanger Helper: Nicolas MOORE TOTALarsen 79-88-9302GSC, TOTAL0.44 ng/mL Normal< OR = 4.00Quest DiagnosticsComment on above:Result Comment: The total PSA value from this assay system is standardized against the WHO standard. The test result will be approximately 20% lower when compared to the equimolar-standardized total PSA ([facility] [place]). Comparison of serial PSA results should be interpreted with this fact in mind. This test was performed using the Siemens chemiluminescent method. Values obtained from different assay methods cannot be used interchangeably. PSA levels, regardless of value, should not be interpreted as absolute evidence of the presence or absence of disease.Performed By: #### 19155, 7600, 62329, 5363 #### [facility] [address], [address] [place] [address] Wallpaper Hanger Helper: Nicolas Araujo MDVITAMIN D,25-OH,TOTAL,IAon 33-31-6754SRRMFMK D,25-OH,TOTAL,IA61 ng/zDBbbrsj86-377Fhkux DiagnosticsComment on above:Result Comment: Vitamin D Status 25-OH Vitamin D: Deficiency: <20 ng/mL Insufficiency: 20 - 29 ng/mL Optimal: > or = 30 ng/mL For 25-OH Vitamin D testing on patients on D2-supplementation and patients for whom quantitation of D2 and D3 fractions is required, the QuestAssureD(TM) 25-OH VIT D, (D2,D3), LC/MS/MS is recommended: order code 23062 (patients >2yrs). See Note 1 Note 1 For additional information, please refer to http://education.[employer].Bespoke Post/faq/TAV099 (This link is being provided for informational/ educational purposes only.)Performed By: #### 91259, 7600, 14403, 5363 #### [facility] [address], [address] [place] [address] Wallpaper Hanger Helper: Nicolas Araujo MDCT CERVICAL SPINE WITHOUT CONTRASTon 13-62-6541VX CERVICAL SPINE WITHOUT CONTRASTUniversity Hospitals Beachwood [facility] Center Department of Radiology [address] [place] [phone] Patient Name: AVEL FUNES : 1975 Sex: M Age: Race: White Pt. Location: 85 Patient Status: D Ordered Date: 09/18/2021 3:30:00 PM Completed Date: 10/30/2021 03:13 PM Requesting Provider: ALMA LEVINE Attending Provider: ALMA LEVINE Report Copy To: ANGELOARREGINALDRODRICK Signs & Symptoms: M54.12 Radiculopathy, cervical region I10 History: Thu [phone] [facility] approval 09/19-10/03/21 Comments: Exam: CT CERVICAL [...] C3-4. Electronically signed: Greta Waters. Transcribed by: [id number], User Resident: Electronically Signed by: GRETA WATERS @ 11/02/2021 08:47 AMNormalThe [facility] Hospitals Beachwood Medical CenterCERVICAL SPINE 4 OR 5 VIEWSon 09-11-2021 CERVICAL SPINE 4 OR 5 VIEWSUnWright-Patterson Medical Center Department of Radiology [address] [place] [phone] Patient Name: AVEL FUNES : 1975 [...] C2. Electronically signed: Avtar Barnes. Transcribed by: [email or web address], User Resident: Electronically Signed by: AVTAR BARNES @ 09/12/2021 02:45 [facility] Cleveland-FairhillComment on above:Order Comment: evaluateCERVICAL SPINE 2 OR 3 Son 78-68-8484SNSVGKVI SPINE 2 OR 3 [facility]ni[facility] Department of Radiology [address] [place] [phone] Patient Name: AVEL FUNES : 1975 [...] pathology. Electronically signed: Koby Muhammad. Transcribed by: [email or web address], User Resident: Electronically Signed by: KOBY MUHAMMAD @ 02/07/2021 09:02 Kindred HealthcareComment on above:Order Comment: ap, latCBC and Differentialon 48-78-0988Vtk Baso0.04 k/uLNormal<0.11Avon HospitalAbs Mono0.72 k/uLNormal<0.87Avon HospitalAbs Neut4.71 k/uLNormal1.45-7.50Av Hospital Absolute nRBC<0.01Normal<0.01Av HospitalBasophils/100 WBC (Bld)0.5 %NormalGilbertown HospitalDTYPEAuto DiffNormalAsaint francis medical center HospitalEosinophils (Bld) [#/Vol]0.11 10*3/uL Normal<0.46Avon HospitalEosinophils/100 WBC (Bld)1.3 %NormalFillmore Community Medical Center Erythrocyte distribution width (RBC) [Ratio]12.0 %Vfkwbn34.5-15.0[facility] Hematocrit (Bld) [Volume fraction]43.4 %Iwneuh92.0-51.0[facility]bertown HospitalHemoglobin (Bld) [Mass/Vol]14.2 g/wYZcbffx59.0-17.0[facility]bert[facility] HospitalLymphocytes (Bld) [#/Vol] 2.63 10*3/uLNormal1.00-4.00Av HospitalLymphocytes/100 WBC (Bld)32.0 %Normal [facility] Medical CenterH (RBC) [Entitic mass]28.8 tPDolpol22.0-34.0AvSaint John's Health SystemHC (RBC) [Mass/Vol]32.7 g/dTQjeoml87.5-36.0[facility] Community Medical CenterV (RBC) [Entitic vol]88.0 iYEhlfvs79.0-100.0AvSt. Vincent EvansvilleMonocytes/100 WBC (Bld)8.8 %NormalFillmore Community Medical Center Neutrophils/100 WBC (Bld)57.4 %NormalFillmore Community Medical CenterNRBCs0.0 /100 IASLgoeam0Pfzs HospitalPlatelet mean volume (Bld) [Entitic vol]11.0 fLNormal9.0-12.7Avon HospitalPlatelets (Bld) [#/Vol]280 10*3/eDMejyns687-055Psge HospitalRBC (Bld) [#/Vol]4.93 10*6/uLNormal4.20-6.00Avon HospitalWBC (Bld) [#/Vol]8.21 10*3/uL Normal3.70-11.00Avon HospitalCT ABD/PEL W IVCONon 62-39-1853AG ABD/PEL W IVCON* * *Final Report* * * DATE OF [...] of an acute intra-abdominal or pelvic process. Cement Handler: EDA Transcribe Date/Time: Apr 06 2019 7:43P Dictated by : ANALY YEPEZ MD This examination was interpreted and the report reviewed and electronically signed by: ANALY YEPEZ MD on Apr 06 2019 7:59PM EST [id number] HospitalComp Metabolic Panelon 04-06-2019 Albumin [Mass/Vol]4.8 g/dLNormal3.9-4.9Avon HospitalALP [Catalytic activity/Vol] 57 U/WAhgmii91-476Rwyt HospitalALT [Catalytic activity/Vol]Unable to assay. Specimen hemolyzed.Auvgex29-67Wevx HospitalAnion gap [Moles/Vol]12 mmol/LNormal 9-18Avon HospitalAST [Catalytic activity/Vol]Unable to assay. Specimen hemolyzed.Lpvzac66-66Ebpz HospitalBilirubin [Mass/Vol]0.4 mg/dLNormal0.2-1.3Avon HospitalCalcium [Mass/Vol]9.8 mg/dLNormal8.5-10.2Avon HospitalChloride [Moles/Vol]97 mmol/TIzhdsz64-789Prsc HospitalCO2 [Moles/Vol]28 mmol/EOviehk57-33 Leigh HospitalCreatinine [Mass/Vol]1.03 mg/dLNormal0.73-1.22Avon HospitaleGFR- Amer.>60NormalAvon HospitalGFR/1.73 sq M predicted among non-blacks MDRD (S/P/Bld) [Vol rate/Area]mL/min/{1.73_m2}NormalAvon HospitalComment on above: Result Comment: eGFR (Estimated GFR) [...] the eGFR may not accurately reflect actual GFR.Glucose [Mass/Vol]95 mg/dLNormal 74-99Avon HospitalComment on above:Result Comment: The [place] [employer] (ADA) provides guidance for cutoff [...] Standards of Medical Care in Diabetes 2016, [place] [employer]. Diabetes Care. 2016.39(Suppl 1).Potassium [Moles/Vol]4.4 mmol/L Normal3.7-5.1Avon HospitalComment on above:Result Comment: Specimen is slightly hemolyzed. Results are unaffected by this level of hemolysis. The performance characteristics of this test were determined by [facility]'s [facility]. It has not been cleared or approved by the FDA. [facility] is regulated under CLIA as qualified to perform high complexity testing. This test isused for clinical purposes. It should not be regarded as investigational or for research.Protein [Mass/Vol]7.5 g/dLNormal6.3-8.0Avon HospitalSodium [Moles/Vol]137 mmol/OMtamyt825-490Ibgd HospitalUrea nitrogen [Mass/Vol]9 mg/dLNormal9-24Avon HospitalED NOTEon 08-23-8357AJ NOTEHNO ID: [id number] Author: Patricia Calero) KELVIN Astorga Service: ? [...] no further questions and/or concerns at this time.NormalGilbertown HospitalED NOTEHNO ID: [id number] Author: Patricia Calero) KELVIN Astorga Service: ? Author Type: Registered Nurse Type: ED Notes Filed: 04/06/2019 8:46 PM Note Text: The P.A is at bedside.[facility] NOTEHNO ID: [id number] Author: Belgica Calero) KELVIN Dukes Service: Nursing Author Type: Registered Nurse Type: ED Notes Filed: 04/06/2019 6:23 PM Note Text: Pt presents to ER for evaluation of rectal bleeding x 3 days. Pt states that he was diagnosed with diverticulitis yesterday without a CT scan and was not started on any medications.[facility] PROV NOTEon 04-06-2019 ED PROV NOTEHNO ID: [id number] Author: Suyapa Vargas Service: ? Author Type: Physician Composition Professor Type: ED Provider Notes Filed: 04/06/2019 9:08 [...] Not on file ALLERGIES Allergen Reactions - [place] Other: See Comments - Ibuprofen GI Upset - Penicillin Rash - Prednisone Swelling Review of Systems Constitutional: Negative. HENT: Negative. Respiratory: Negative. Cardiovascular: Negative. Gastrointestinal: Positive for abdominal pain and blood in stool. Genitourinary: Negative. Musculoskeletal: Negative. Skin: Negative. Neurological: Negative. Psychiatric/Behavioral: Negative. All other systems reviewed and are [...] Ordered and Reviewed CBC + AUTO DIFF (AK,AV,EU,FV,HL,ALYSON,MM,SP) COMPREHENSIVE METABOLIC PANEL (AK,AV,EU,FV,HL,ALYSON,MM,SP) FECAL OCCULT BLOOD - ED(POC) Procedures ED [...] disposition: stable SIGNATURE: TRICIA Watters Pa-C 04/06/19 [facility] [id number] ID: [id number] Author: Eileen Dougherty (Rt) Service: Radiology Author Type: Electrical Prospector Type: Progress Notes Filed: 04/06/2019 7:39 PM Note Text: Radiology Service Progress Note PATIENT NAME: Avel Garcia Efraín DATE OF SERVICE: April 06, 2019 TIME: 7:39 PM PATIENT IDENTITY VERIFICATION COMPLETED USING TWO (2) METHODS: Patient confirmed name verbally, ID Band and Date of . PATIENT GENDER DATA: Male PATIENT RELEVANT IMPLANT DATA REVIEWED: Yes RADIOLOGY DEPARTMENT: CT; Exam(s) Completed: Abdomen/Pelvis PERIPHERAL IV DATA: Inpatient: see LDA documentation SIGNED BY: RT Laura April 06, 2019 7:39 [facility] Vital Signs Date TimeVital SignValuePerforming GvphjdnajBpqeekuf99-66-6934 20:18-0500Body usotiu748.[address]11-04-2025 20:18-0500Body mass index (BMI) [Ratio]30.56 kg/m[address]11-04-2025 20:18-0500Body .[address]10-30-2025 11:46-0400Body umgwvi546 cm Rodrick Stephenslong DO Work Phone: [facility] [address] Tpigxz00-65-3481 11:46-0400Body mass index (BMI) [Ratio]30.58 kg/x8Zzlgax Furlong DO Work Phone: [facility]10-30-2025 11:46-0400Body jittqlkazct87.5 [degF]Rodrick Stephenslong DO Work Phone: [facility]10-30-2025 11:46-0400Body .54 kgDencassi Stephenslong DO Work Phone: [facility] Jwgmda63-72-8911 11:46-0400Diastolic blood fxdarcsh93 mm[Hg]Rodrick Furlong DO Work Phone: [facility] Ellklb54-67-9610 11:46-0400Heart rate 94 /minDennis Furlong DO Work Phone: [facility]10-30-2025 11:46-0400 Respiratory rate18 /minDennis Furlong DO Work Phone: [facility] Toliqg20-03-5237 11:46-3067RoQ3% (BldA) [Mass fraction]97 %Rodrick Stephenslong DO Work Phone: [facility] Kmvtgy76-72-2207 11:46-0400Systolic blood ozxmirny065 mm[Hg]Rodrick Stephenslong DO Work Phone: [facility]10-23-2025 17:14-0400Body wbskhu933.45 cmDennis Furlong DO Work Phone: [phone])[address] [place], [place] 7183710-23-2025 17:14-0400 Body mass index (BMI) [Ratio]31.5 kg/f3Pcuocz Furlong DO Work Phone: 1419)[address] [place], [place] 1956010-23-2025 17:14-0400 Body ovvtldipotq28 [degF]Rodrick Furlong DO Work Phone: 1(419)[address] [place], [place] 1956010-23-2025 17:14-0400 Body kcurat90.75 kgDennis Furlong DO Work Phone: 1419)[address] [place], [place] 1956010-23-2025 17:14-0400 Diastolic blood jlduqgln19 mm[Hg]Rodrick Furlong DO Work Phone: 1419)[address] [place], [place] 1956010-23-2025 17:14-0400 Heart rate81 /minDennis Furlong DO Work Phone: 1(419)[facility] [place], [place] 3895810-23-2025 17:14-0400 Respiratory rate19 /minDennis Furlong DO Work Phone: 1419)[facility] [place], [place] 3895810-23-2025 17:14-0400 SaO2% (BldA) [Mass fraction]98 %Rodrick Furlong DO Work Phone: 1([phone]10-23-2025 17:14-0400 Systolic blood hoiahawo472 mm[Hg]Rodrick Furlong DO Work Phone: [phone])9-[address] [place], [place] 3895809-09-2025 14:37-0400 Diastolic blood kpzbdpig83 mm[Hg]Rodrick Furlong DO Work Phone: [phone]09-09-2025 14:37-0400Heart rate 105 /minDennis Furlong DO Work Phone: [facility]09-09-2025 14:37-6005PfO1% (BldA) [Mass fraction]98 %Rodrick Furlong DO Work Phone: [facility] Hhmxyi59-84-5752 14:37-0400Systolic blood juccsbif260 mm[Hg]Rodrick Richardson DO Work Phone: [facility] Rzfkxr47-00-0165 13:29-0400Body fgmuvv722 cmRodrick Chongng DO Work Phone: [facility] Gvulnd43-35-9199 13:29-0400Body mass index (BMI) [Ratio]31.68 kg/d7Ckpmhdcassi Richardson DO Work Phone: [facility] Qtqlxi14-08-0105 13:29-0400Body .2 [degF]Rodrick Richardson DO Work Phone: [facility] Brffzh13-83-6623 13:29-0400Body .8 kgRodrick Richardson DO Work Phone: [facility] Ewgzpv43-04-5545 13:29-0400 Respiratory rate18 /minDurban Richardson DO Work Phone: [facility] Xrgrxd40-88-1255 09:18-0400Body .7 cmStamargie Mccoy HAND COKE DRAWER-HOT ROLL LAMINATOR Work Phone: [facility] Mcrcmo59-25-8167 09:18-0400Body mass index (BMI) [Ratio]31.84 kg/a2Ihppqadhaval Mccoy HAND COKE DRAWER-HOT ROLL LAMINATOR Work Phone: [facility] Urgiea45-89-9779 09:18-0400Body etjxgy76.98 kgStdhaval Mccoy HAND COKE DRAWER-HOT ROLL LAMINATOR Work Phone: [facility] Lycwzi51-65-5483 09:18-0400Diastolic blood puxmohbs56 mm[Hg]Nori Darius HAND COKE DRAWER-HOT ROLL LAMINATOR Work Phone: [facility] Fnwmcw78-83-6492 09:18-0400Heart rate 90 /minStacicosmo Mccoy HAND COKE DRAWER-HOT ROLL LAMINATOR Work Phone: [facility] Qoryfd81-08-7494 09:18-7384AfD7% (BldA) [Mass fraction]95 %Nori Mccoy HAND COKE DRAWER-HOT ROLL LAMINATOR Work Phone: [facility] Armgbo29-42-2330 09:18-0400Systolic blood oipbzasn729 mm[Hg]Nori Mccoy HAND COKE DRAWER-HOT ROLL LAMINATOR Work Phone: [facility] Tcdcma96-92-4937 11:34-0400Diastolic blood wldamkhu67 mm[Hg]Rodrick Chongng DO Work Phone: [facility] mum Ugdxxm91-06-2109 11:34-0400Heart rate 49 /minDangelis Angelolong DO Work Phone: [facility] Exiszp93-75-0274 11:34-9144YcK4% (BldA) [Mass fraction]98 %Rodrick Stephenslong DO Work Phone: [facility] Brlgoi45-03-3389 11:34-0400Systolic blood lpdeickr748 mm[Hg]Rodrick Stephenslong DO Work Phone: [facility] Eaextq59-45-6854 11:31-0400Body pubwqn461.7 cmRodrick Chongng DO Work Phone: [facility] Doaayw89-78-4785 11:31-0400Body mass index (BMI) [Ratio]31.72 kg/s5Lvistl Furlong DO Work Phone: [facility] Mgwace68-53-5139 11:31-0400Body fnyanjdxsur74.9 [degF]Rodrick Stephenslong DO Work Phone: [facility] Ratmvc51-16-9909 11:31-0400Body ofvkup25.62 kgRodrick Chongng DO Work Phone: [facility] mum Whnekx08-07-6692 11:31-0400 Respiratory rate20 /minDennis Angelolong DO Work Phone: [address] [place], [place] 3162905-20-2025 11:19-0400Body .2 cmSusan Love MD Work Phone: 1(298)[address] [place], [place] 1173205-20-2025 11:19-0400Body mass index (BMI) [Ratio]32.11 kg/x2DhuvvrSusan Love MD Work Phone: 1(998)[address] [place], [place] 1173205-20-2025 11:19-0400Body iaiiuu87.99 kgSusan Love MD Work Phone: 1(327)[address] [place], [place] 1173205-20-2025 11:19-0400Diastolic blood muzewqdh59 mm[Hg]Susan Love MD Work Phone: 1(222)[address] [place], [place] 1173205-20-2025 11:19-0400Heart rate85 /min Susan Love MD Work Phone: 1(080)[address] [place], [place] 1173205-20-2025 11:19-0400Systolic blood smkgchyb887 mm[Hg]Susan Love MD Work Phone: 1(453)[address] [place], [place] 1173204-29-2025 11:32-0400Body rtzyjc906.2 cmSusan Love MD Work Phone: 1(013)[address] [place], [place] 1173204-29-2025 11:32-0400Body mass index (BMI) [Ratio]32.11 kg/m9AhupdsSusan Love MD Work Phone: 1(942)[address] [place], [place] 1173204-29-2025 11:32-0400Body qqnbwu59.99 kgSusan Love MD Work Phone: 1(630)[address] [place], [place] 1173204-29-2025 11:32-0400Diastolic blood mm[Hg]Susan Love MD Work Phone: 1(085)[address] [place], [place] 1173204-29-2025 11:32-0400Heart igha561 /min Susan Love MD Work Phone: 1(841)[address] [place], [place] 1173204-29-2025 11:32-0400Systolic blood uqzyljuo651 mm[Hg]Susan Love MD Work Phone: 1(069)[address] [place] [address]-25-2025 09:21-0400Body frgrag793.7 Dennise Escoto MD Work Phone: 1(045)[address] [place], [place] 1214304-25-2025 09:21-0400Body mass index (BMI) [Ratio]31.93 kg/t8DryoaLuciana Escoto MD Work Phone: 1(911)[address] [place], [place] 1214304-25-2025 09:21-0400Body aonyoy64.25 kgLuciana Escoto MD Work Phone: 1(966)[facility] [place] [address]-25-2025 09:21-0400Diastolic blood zqncwely87 mm[Hg]Luciana Escoto MD Work Phone: 1(709)[facility] [place], [place] [address]Defayprbdh17-55-9617 09:21-0400Heart rate96 /min Luciana Escoto MD Work Phone: 1(789)[address] [place], [place] 1214304-25-2025 09:21-0400Respiratory rate16 /minLuciana Escoto MD Work Phone: 1(458)[facility] [place] [address]-25-2025 09:21-2724SrE6% (BldA) [Mass fraction]98 %Luciana Escoto MD Work Phone: 1(237)375-[address] [place] [address]-25-2025 09:21-0400Systolic blood adgxhkas199 mm[Hg]Luciana Escoto MD Work Phone: 1(020)[address] [place] [address]-17-2025 13:13-0400Diastolic blood ccmnyjmo94 mm[Hg]Rodrick Furlong DO Work Phone: [facility]04-17-2025 13:13-0400Heart rate 98 /minDennis Furlong DO Work Phone: [facility]04-17-2025 13:13-1282JfL2% (BldA) [Mass fraction]98 %Rodrick Furlong DO Work Phone: [facility]04-17-2025 13:13-0400Systolic blood ghgscygp808 mm[Hg]Rodrick Furlong DO Work Phone: [facility]04-17-2025 13:06-0400Body lgzewh240.7 cmDennis Furlong DO Work Phone: [facility]04-17-2025 13:06-0400Body mass index (BMI) [Ratio]31.18 kg/n1Lrqrjb Furlong DO Work Phone: [facility]04-17-2025 13:06-0400Body khbtfajhdkr34.01 [degF]Rodrick Furlong DO Work Phone: [facility]04-17-2025 13:06-0400Body zamcxm61.99 kgDennis Furlong DO Work Phone: [facility]04-17-2025 13:06-0400 Respiratory rate20 /minDennis Furlong DO Work Phone: [facility]10-07-2024 17:16-0400Body uilzmt985.72 [facility]10-07-2024 17:16-0400Body mass index (BMI) [Ratio]30.2 kg/r0LfoegarmqKn[facility] Hospital10-07-2024 17:16-0400Body czezdivxpgk81 [degF][facility]10-07-2024 17:16-0400Body .37 kg[facility]10-07-2024 17:16-0400Diastolic blood idgkwptd17 mm[Hg][facility] 06-06-2024 17:16-0400Heart rate87 /[facility] 06-06-2024 17:16-0400Respiratory rate18 /[facility] 06-06-2024 17:16-3607YaH6% (BldA) [Mass fraction]98 %[facility]10-07-2024 17:16-0400Systolic blood pcwmumbh84 mm[Hg][facility]09-17-2024 09:08-0400Body frspei759.[address]09-17-2024 09:08-0400Body mass index (BMI) [Ratio]30.54 kg/m2Pmh 2 [facility]09-17-2024 09:08-0400Body dixuse64.[address] [place], [place] 7706407-25-2024 11:10-0400Body oajzdf363.7 cmDencassi Stephenslong DO Work Phone: [facility]07-25-2024 11:10-0400Body mass index (BMI) [Ratio]30.53 kg/a7Pkgcwz Furlong DO Work Phone: [facility]07-25-2024 11:10-0400Body fmiihaonzqp91.1 [degF]Rodrick Stephenslong DO Work Phone: [facility]07-25-2024 11:10-0400Body fmocbd55.08 kgDencassi Stephenslong DO Work Phone: [facility]07-25-2024 11:10-0400Diastolic blood vydxteye50 mm[Hg]Rodrick Stephenslong DO Work Phone: [facility]07-25-2024 11:10-0400Heart rate 84 /Sreekanth Stephenslong DO Work Phone: [facility]07-25-2024 11:10-0400 Respiratory rate18 /minDangelis Angelolong DO Work Phone: [facility]07-25-2024 11:10-9399DbH2% (BldA) [Mass fraction]98 %Rodrick Stephenslong DO Work Phone: [facility]07-25-2024 11:10-0400Systolic blood ufzkgixr76 mm[Hg]Rodrick Stephenslong DO Work Phone: [facility]07-09-2024 14:42-0400Body eewjoe670.7 Bret Nguyen MD Work Phone: [facility]07-09-2024 14:42-0400Body mass index (BMI) [Ratio]30.26 kg/k4XeijbpdSuzanne Nguyen MD Work Phone: [facility] Umetzl68-17-3627 14:42-0400Body rinieq62.27 kgSuzanne Nguyen MD Work Phone: [facility] Vzcnrx44-11-7000 14:42-0400Diastolic blood jotysemw61 mm[Hg]Suzanne Nguyen MD Work Phone: [facility] Jzqdae03-41-5509 14:42-0400Heart rate 78 /minSuzanne Nguyen MD Work Phone: [facility] Ancplk85-57-5736 14:42-0400Systolic blood jojukfdb614 mm[Hg]Suzanne Nguyen MD Work Phone: [facility] Jtoxtn22-82-1481 14:27-0400Body nnniak054.7 cmRodrick Stephenslong DO Work Phone: [facility] Bahaso50-54-7109 14:27-0400Body mass index (BMI) [Ratio]30.26 kg/e8IlovaxRodrick Stephenslong DO Work Phone: [facility] Xftgqh12-22-4509 14:27-0400Body wwwybzolgje55.1 [degF]Rodrick Stephenslong DO Work Phone: [facility] Kdpewe02-70-7408 14:27-0400Body datzkf91.27 kgDencassi Stephenslong DO Work Phone: [facility] Nbbksx02-18-2172 14:27-0400Diastolic blood mm[Hg]Rodrick Stephenslong DO Work Phone: [facility] HospitalArdian06-11-2024 14:27-0400Heart rate 102 /minDennis Angelolong DO Work Phone: [facility] Awhexx11-27-6021 14:27-7244HcK9% (BldA) [Mass fraction]96 %Rodrick Stephenslong DO Work Phone: [facility] HospitalAeria Games [facility] Entertainment Fmbelh14-13-7602 14:27-0400Systolic blood qeoorvyr804 mm[Hg]Rodrick Richardson DO Work Phone: [facility] HospitalA[facility] Encounters Encounter DateEncounter TypeCare ProviderFacilityStart: 07-04-2025 End: 20-20-8872Knbvlife SupportUniversity [facility]als [facility] [address] [place] [address] - Sleep DisordersComment on above:PONCHO (obstructive sleep apnea)Start: 07-03-2025 End: 94-60-4750BugryoOaphdi G Furlong DO Work Phone: [facility] - Family MedicineStart: 06-29-2025 End: 77-23-6019Lvithh outpatient visit 15 minutesRodrick Richardson DO Work Phone: [facility] Internal Medicine - Family MedicineComment on above:Tinea pedis of right foot (Primary Dx)Start: 06-29-2025 End: 97-28-3050acjrwobszyUBWJTYFaith [facility] Center Ambulatory PPGStart: 06-22-2025 End: 98-64-8310mgvhftxvoyZsqtnu Furlong DO Work Phone: -[facility] ClydeStart: 06-22-2025 End: 04-64-6803Tyjqeax encounter procedureEm Peralta APRN-[facility] Work Phone: Start: 94-95-8766pcjpyzgvvfQYRASelect Medical [facility], Edwin Shawtart: 05-09-2025 End: 94-78-4717Kzvlgll encounter procedureRodrick Richardson DO Work Phone: [facility] Internal Medicine - Family MedicineComment on above:Medicare annual wellness visit, subsequent (Primary Dx); Class 1 obesity due to excess calories with serious comorbidity and body mass index (BMI) of 31.0 to 31.9 in adult; Screening for depression; Mixed hyperlipidemia; Paresthesia; Dizziness; Essential hypertensionStart: 05-09-2025 End: 51-75-9475kvkkkwowtxOCMNUJFaith Regional Medical Center Ambulatory PPGStart: 27-33-0451Qsyayszdk for general adult medical examination without abnormal findingsTRANSYLVANIA REGIONAL HOSPITALCASSI [facility] Ambulatory PPGStart: 05-06-2025 End: 26-90-5433OntwaxXfujcw G Furlong DO Work Phone: [facility] Internal Medicine - Family MedicineComment on above:Gastro-esophageal reflux disease without esophagitis; Other specified depressive episodes; Asthma, unspecified asthma severity, unspecified whether complicated, unspecified whether persistent; Insomnia, unspecifiedStart: 05-04-2025 End: 66-08-2498UdfsaqYenbzl Angeloreginald DO Work Phone: [facility] HospitalMed[facility] Internal Medicine - Family MedicineStart: 05-03-2025 End: 08-29-6554Vindzxusw encounterStacicosmo Mccoy HAND COKE DRAWER-Social[employer] Work Phone: [facility] - Sleep DisordersComment on above:Sleep Lab (PSG)Start: 04-26-2025 End: 32-06-5799Igxzew outpatient new 45 minutesStacie Penelope Mccoy HAND COKE DRAWER-SocialStay Work Phone: [facility] Pulmonary/Sleep MedicineComment on above:PONCHO (obstructive sleep apnea) (Primary Dx); Noncompliance with CPAP treatment; BMI 31.0-31.9,adult; Obesity (BMI 30-39.9)Start: 04-26-2025 End: 20-41-6755buzrbolepnSRDZBYSCL [facility] Ambulatory PPGStart: 04-11-2025 End: 21-40-4434Khxlmj OnlyDavincassi Richardson DO Work Phone: [facility] Internal Medicine - Family MedicineStart: 03-20-2025 End: 46-36-4741evuyqfwpakASFVHUBarney Children's Medical Center Start: 02-24-2025 End: 93-37-7643arpmcruxbaHVVKSKQueens Hospital Center HospitalStart: 02-23-2025 End: 90-63-3669DwrbrqUjusoa G Furlong DO Work Phone: [facility] - [facility] HospitalComment on above:Urticaria, unspecifiedStart: 02-09-2025 End: 44-79-8701Yauivi OnlyRodrick Richardson DO Work Phone: [facility] Internal Medicine - [facility] HospitalComment on above:PONCHO (obstructive sleep apnea) (Primary Dx)Start: 02-07-2025 End: 31-50-1447Miuwpfvde encounterPretty Walter [facility] HospitalMediar [facility] Internal Medicine [facility] McDuffietart: 02-06-2025 End: 51-08-5069Ygjymg outpatient visit 25 minutesRodrick Richardson DO Work Phone: [facility] Internal Medicine - [facility] HospitalComment on above:Essential hypertension (Primary Dx); Depressive disorder; Chronic anxiety; PONCHO (obstructive sleep apnea); Orthostatic hypotension; Persistent asthma without complication, unspecified asthma severity; Class 1 obesity due to excess calories with serious comorbidity and body mass index (BMI) of 31.0 to 31.9 in adultStart: 02-06-2025 End: 41-04-3026dvzvturqrlPWLENM [facility] PPGStart: 01-30-2025 End: 18-79-8261Glbvinniya Escoto MD Work Phone: [facility] ENDOCRINOLOGYStart: 01-30-2025 End: 45-64-5514Rtitwagisell Escoto MD Work Phone: [facility] ENDOCRINOLOGYStart: 01-30-2025 End: 88-08-0319Chfskq outpatient visit 25 minutesLuciana Escoto MD Work Phone: [facility] ENDOCRINOLOGYComment on above:Hypoglycemia Start: 01-30-2025 End: 79-03-2175zzalxnzhdwLBBUZHarmony Dickerson AvailableStart: 01-30-2025 End: 56-66-5180yxsctkluljTKTVHB [facility] Hospitaltart: 01-25-2025 End: 29-43-0422MiajyrWasovw G Furlong DO Work Phone: [facility] - [facility] MedicineComment on above:Gastro-esophageal reflux disease without esophagitis; Other specified depressive episodes; Asthma, unspecified asthma severity, unspecified whether complicated, unspecified whether persistent; Hyperlipidemia, unspecifiedStart: 01-17-2025 End: 88-21-8345Cwcvuo Wero Love MD Work Phone: [facility] CI ENTStart: 01-17-2025 End: 30-12-4775Wbabfu Wero Love MD Work Phone: [facility] CI ENTStart: 01-17-2025 End: 99-02-3922Pwhpcp outpatient visit 15 minutesHibenja Love MD Work Phone: [facility] CI ENTComment on above:Chronic myringitis of right ear (Primary Dx); Dysfunction of right eustachian tube; Foreign body of right ear, initial encounterStart: 01-17-2025 End: 70-92-7105yjhemzrwppBDWEVM H TIMMISNot AvailableStart: 01-13-2025 End: 65-21-5069Ekqrcjyvy encounterNiccurt Watson [facility]ALTHProMediar [facility] Internal [facility] - [facility] MedicineStart: 12-27-2024 End: 01-31-6531traflqswhsNOBRYP H TIMMISNot AvailableStart: 12-27-2024 End: 29-64-8394Ntvyox outpatient new 45 minutesSusan Love MD Work Phone: [facility] CI ENTComment on above:ETD (Eustachian tube dysfunction), bilateral (Primary Dx); Chronic myringitis of right earStart: 12-26-2024 End: 78-45-5999NlrwdqHelen Posey Irvin Stephenscruz DO Work Phone: [facility] Internal Medicine Family MedicineStart: 12-24-2024 End: 10-35-4406llfnejfrapFBMAFW G FURLONGWhite Hospitaltart: 12-23-2024 End: 71-28-2344Blgiirniya Escoto MD Work Phone: [facility] ENDOCRINOLOGYStart: 12-23-2024 End: 52-79-4792Caznbzgisell Escoto MD Work Phone: [facility] ENDOCRINOLOGYStart: 12-23-2024 End: 11-65-3680Ehiamx outpatient new 45 [place] Escoto MD Work Phone: [facility] ENDOCRINOLOGYComment on above:Hypoglycemia (Primary Dx); Screening for diabetes mellitusStart: 12-23-2024 End: 19-11-0048cgmkptsglhCGBXAHarmony Dickerson AvailableStart: 12-22-2024 End: 65-79-6429Lyxtkl OnlyRodrick Richardson DO Work Phone: [facility] Medicine - Family MedicineComment on above:Hypoglycemia (Primary Dx)Start: 12-20-2024 End: 06-14-7069Hvktrb OnlyRodrick Richardson DO Work Phone: [facility] Internal Medicine - Family MedicineComment on above:Hypoglycemia (Primary Dx); Impaired fasting glucoseStart: 12-18-2024 End: 46-94-8906UlqzldOcdspp G Furlong DO Work Phone: [facility] Medicine - Family MedicineComment on above:Insomnia, unspecifiedStart: 12-15-2024 End: 61-75-8975pexutuaahoQLHMTL G FURLONGMount Ascutney HospitalGaUK Healthcare HospitalStart: 12-15-2024 End: 88-58-4926Nlkhvd outpatient visit 25 minutesRodrick Richardson DO Work Phone: [facility] Medicine - Family MedicineComment on above:Hypotension due to hypovolemia (Primary Dx); Asthma, unspecified asthma severity, unspecified whether complicated, unspecified whether persistent; Polyp of sigmoid colon, unspecified type; Essential hypertension; Obstructive sleep apnea syndrome; Anemia, unspecified type; Right chronic serous otitis mediaStart: 12-15-2024 End: 01-09-9347aaqefnublvOCAZAA G FURLOSky [facility] PPGStart: 12-14-2024 End: 88-11-5201Exagocher encounterPretty Watson [facility] Internal Medicine - [place] [facility] MedicineStart: 12-07-2024 End: 12-64-1116NqkizbAygjxn G Angelolong DO Work Phone: [facility] Physicians Internal Medicine - Family MedicineComment on above:Gastro-esophageal reflux disease without esophagitis; Other specified depressive episodesStart: 12-01-2024 End: 49-30-0756Lbltwdnun encounterDayanara Fernandes [facility] Physicians Internal Medicine - Family MedicineComment on above:Transition Of CareStart: 11-30-2024 End: 53-84-5716Rvdehvutp encounterPretty Watson [facility] Physicians Internal Medicine - [facility] MedicineStart: 11-28-2024 End: 46-79-3277auqfawkrrjYRYUHX G [facility]: 10-10-2024 End: 56-06-2861RxqytxEqgx [facility] Physicians Internal Medicine - Family MedicineComment on above:Hyperlipidemia, unspecifiedStart: 10-05-2024 End: 87-85-8348ComtarIfnlk E Fumo MD Work Phone: [facility] Phys[facility] Genito-Urinary SurgeonsStart: 09-21-2024 End: 25-86-3678BdxooyGnuvpj G Angelolong DO Work Phone: [facility] Internal Medicine - Family MedicineComment on above:Insomnia, unspecifiedStart: 09-21-2024 End: 69-18-2197Lgqdotedz encounterDennis G Angelolong DO Work Phone: [facility] Internal Medicine [facility] MedicineStart: 09-16-2024 End: 39-11-2806fcsyyivusjUDTTDS [facility] Cent[facility]art: 09-16-2024 End: 73-28-4547Ocpbljryfh hospital visit by Bettina Lira DO Work Phone: [facility] CT ScanComment on above:Cervical spondylosis with radiculopathy; 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Start: 09-09-2024 End: 06-33-9524EowhjyByvmzo G Furlong DO Work Phone: [facility] Internal Medicine - Family MedicineComment on above:Urticaria, unspecified; Other specified depressive episodes; Gastro-esophageal reflux disease without esophagitis; Essential (primary) hypertensionStart: 09-09-2024 End: 25-03-4198Muhpfabwf encounterDencassi Irvin Richardson DO Work Phone: [facility] - [facility]: 06-06-2024 End: 13-35-1130gyqeqiziqjZmmoognraParma Community General Hospital Work Phone: Start: 06-06-2024 End: 87-22-5699Pazmfgh encounter procedureAtrium Health Cabarrus Physician GroupM[facility] [place] Work Phone: Start: 06-06-2024 End: 38-07-4313eiikjzqjzfJorhvjw Vytautas Giedraitis MDFacility:PM [place] Start: 05-23-2024 End: 47-33-3440igumkgsltrDifdljw Vytautas Giedraitis MDFacility:PM [place] Start: 05-18-2024 End: 90-43-8744wlqaivamvhAFQFHQZSelect Medical Specialty Hospital [facility] Southtart: 05-17-2024 End: 12-24-6496Vnxuywz encounter procedureUniversity [facility]als [facility] Pre-Admission Testing [address] [place] [address] - Pre AdmitComment on above:Preop examination (Primary Dx); Hypertension, unspecified type; PONCHO (obstructive sleep apnea)Start: 05-17-2024 End: 95-84-4396Omlksfuouxwwu examination done[address] Streettart: 05-17-2024 End: 77-64-4468fripzvswihJZGTY M SOMMERSWhite Hospitaltart: 86-57-2082Hdknpjqgg for other preprocedural examinationPomerene Hospitaltart: 04-19-2024 End: 79-27-3783giokfdbrkfBRERWC G FURLONGWhite Hospitaltart: 04-10-2024 End: 50-12-0621CpamwqFsbnq E Fumo MD Work Phone: [facility] Physicians Genito-Urinary SurgeonsStart: 03-26-2024 End: 45-65-5151OhinhpXbqsqz G Furlong DO Work Phone: [facility] Phys[facility] Internal Medicine - Family MedicineComment on above:Insomnia, unspecifiedStart: 03-24-2024 End: 93-63-3529Vgogji outpatient visit 15 minutesDavincassi Richardson DO Work Phone: [facility] Phys[facility] Internal Medicine - Family MedicineComment on above:Hot flashes (Primary Dx); Hyperglycemia; Class 1 obesity due to excess calories with serious comorbidity and body mass index (BMI) of 30.0 to 30.9 in adult; Mixed hyperlipidemia; Right carpal tunnel syndromeStart: 03-15-2024 End: 45-68-5506BgrapqBafiuy G Furlong DO Work Phone: [facility] Internal Medicine - Family MedicineComment on above:Essential (primary) hypertensionStart: 03-14-2024 End: 74-93-8926IldxcbQiatz Dino [facility]ALTHPro[facility] Physicians Internal Medicine - Family MedicineComment on above:Urticaria, unspecified; Other specified depressive episodesGastro-esophageal reflux disease without esophagitisStart: 03-08-2024 End: 68-72-0105Jqaucg outpatient visit 25 minutesSuzanne Nguyen MD Work Phone: [facility] Physicians Genito-Urinary SurgeonsComment on above:Lower urinary tract symptoms (Primary Dx); Peyronie's diseaseStart: 03-08-2024 End: 72-36-8314Fbncvvcha encounterSuzanne Nguyen MD Work Phone: [facility] Physicians Genito-Urinary SurgeonsStart: 03-08-2024 End: 18-74-7128dhyidivtdeSPWJEM G FURREGINALDWhite Hospitaltart: 02-25-2024 End: 04-86-2864Bgumpd OnlyRodrick Richardson DO Work Phone: [facility] Internal Medicine - Family MedicineComment on above:Mass of upper outer quadrant of left breast (Primary Dx)Start: 02-15-2024 End: 14-89-7594qwsqdtopktEsduqvl John Ritchie MDFacility:PM [place] Start: 02-09-2024 End: 95-76-4021hlxkeutkhqKFDRLD G FURLONGOhio State Harding Hospitaltart: 02-09-2024 End: 94-53-6195Therbr outpatient visit 25 minutesRodrick Richardson DO Work Phone: [facility] Internal Medicine - Family MedicineComment on above:Essential hypertension (Primary Dx); Mixed hyperlipidemia; Mass of upper outer quadrant of left breast; Depressive disorder; Low vitamin D level; Class 1 obesity due to excess calories with serious comorbidity and body mass index (BMI) of 30.0 to 30.9 in adult; Primary osteoarthritis of right kneeStart: 01-27-2024 End: 01-45-9412Rlbmumkpe encounterPretty Watson [facility] HospitalMed[facility] Internal Medicine - Family MedicineStart: 01-01-2024 End: 23-61-1766Mobcxnrvw encounterImani Bryan [facility]ALTHPro[facility]ica [facility] Internal Medicine - Family MedicineComment on above:Appointment DueStart: 12-18-2023 End: 84-07-8529DnwyffOfpg Rose Kuns HAND COKE DRAWER-MANAGER UTILIZATION REVIEW Work Phone: [facility] Internal Medicine - Family MedicineComment on above:Insomnia, unspecifiedStart: 99-00-7495DkudvzLebg Rose Kuns HAND COKE DRAWER-MANAGER UTILIZATION REVIEW Work Phone: [facility] Internal Medicine - Family MedicineComment on above:Hyperlipidemia, unspecifiedStart: 93-69-0151QmjyrnZewxa E Fumo MD Work Phone: [facility] Genito-Urinary SurgeonsStart: 10-03-2023 End: 00-58-1115knxmmamknpOCHDL MUFTIMerNaval Medical Center San Diegotart: 52-74-9460Yaztvd Jose Enrique Espinoza HAND COKE DRAWER-MANAGER UTILIZATION REVIEW Work Phone: [facility] Internal Medicine - Family MedicineStart: 96-25-5279UkhyktQxhzvy G Furlong DO Work Phone: [facility] - [facility] HospitalComment on above:Insomnia, unspecifiedStart: 09-30-2023 End: 20-13-9477corhefjljsMIGTBY G FURLONGMerWilson Memorial Hospitaltart: 38-65-8302ArigghUors Rose Kuns HAND COKE DRAWER-MANAGER UTILIZATION REVIEW Work Phone: [facility] Internal Medicine - Family MedicineComment on above:Other specified depressive episodes; Urticaria, unspecifiedGastro-esophageal reflux disease without esophagitisStart: 01-13-2023 End: 64-20-0290zuzqgsssowWILVWIOYSZGR LAKSHMIPATHY .Facility:P1Ynzrv: 12-16-2022 End: 44-25-1747zznbdedwhwLPKIDOIHSTMH LAKSHMIPATHY .Facility:C1Jxusn: 12-04-2022 End: 35-08-9425kmlxenumykJYYIGFVHHJEJ LAKSHMIPATHY .Facility:T6Xtwkl: 10-27-2022 End: 25-84-5475eyraxiydtmOA DOCTOR MISCFacility:F5Ahyda: 09-10-2022 End: 72-38-6560kzeahshrynULHR SOLIS .Facility:Y6Lmpqz: 73-93-9894oonerloofoBC SHAN Duarte PECK .Facility:N3Shvwv: 06-26-2022 End: 46-56-8436uqyvjyeslnUM SHAN S CISCO .Facility:B6Phgjt: 04-03-2022 End: 97-08-7062fnilqtdxrsVS SHAN S CISCO .Facility:B2Mnofp: 10-30-2021 End: 73-09-9677iwtuswfmwhSAQUNV FURLONGFacility:[facility] Procedures DateProcedureProcedure DetailPerforming ClinicianStart: 25-98-9546Rtnjs X-ray of left shoulderDennis Furlong DO Work Phone: Start: 31-02-3069Onclj metabolic panel calcium total Rodrick G Furlong DO Work Phone: Start: 26-20-6319Ejqni panelRodrick Richardson DO Work Phone: Start: 91-96-5883Rcngs depression screening assessment Rodrick Richardson DO Work Phone: Start: 63-96-8718Anvdi depression screening assessment Rodrick Richardson DO Work Phone: Start: 68-42-4221Bszy bld gluc mntr dev cleared fda spec home useAhvianey Escoto MD Work Phone: Start: 95-41-3790Wuvx bld gluc mntr dev cleared fda spec home useLuciana Escoto MD Work Phone: Start: 94-77-4536Yswxkv-up visitFollow-Dewey CHONGNGStart: 30-99-0301Tulhv depression screening assessmentRodrick Richardson DO Work Phone: Start: 26-71-6831Eyjiw depression screening assessment oRdrick Richardson DO Work Phone: Start: 02-17-6862Qehkp depression screening assessment Pretty Watson CMAStart: 35-85-4064Nrxms depression screening assessmentEstela Espinoza HAND COKE DRAWER-MANAGER UTILIZATION REVIEW Work Phone: Plan of Treatment DateCare ActivityDetailAuthorStart: 86-47-6931Ozsoj BMI ScreeningAdult BMI ScreeningProMedica Health SystemStart: 31-73-6199Dshloen ScreeningTobacco ScreeningProMedica Health SystemStart: 88-55-7729Uahpq BMI ScreeningAdult BMI ScreeningProMedica Health SystemStart: 34-09-0556Vpqeexy ScreeningTobacco ScreeningProMedica Health SystemStart: 54-10-3632Wwwnt BMI ScreeningAdult BMI ScreeningProMedica Health SystemStart: 76-70-7998Wcdjfllyrf ScreeningDepression ScreeningProMedica Health SystemStart: 87-58-1941Ivmivcg ScreeningTobacco ScreeningMercer County Community Hospitalca [facility] SystemStart: 09-02-7723Jslskrc ScreeningTobacco ScreeningMercer County Community Hospitalca Health SystemStart: 66-70-2003Pyrmq BMI ScreeningAdult BMI ScreeningEast [facility] SystemStart: 27-22-6878Kicbs BMI ScreeningAdult BMI ScreeningProSelect Medical [facility] SystemStart: 85-87-9693Zytcwcnulc ScreeningDepression ScreeningEast [facility] Hospital SystemStart: 44-95-7160Kqujfnz ScreeningTobacco ScreeningMercer County Community Hospitalca Health SystemStart: 78-12-0926Wwnid BMI ScreeningAdult BMI ScreeningMercer County Community Hospitalca [facility] SystemStart: 77-23-2717Cezwvlqrpr ScreeningDepression ScreeningMercer County Community Hospitalca [facility] SystemStart: 05-10-7773Ogggdtx ScreeningTobacco ScreeningMercer County Community Hospitalca [facility] SystemStart: 07-63-8552Zmgcv BMI ScreeningAdult BMI ScreeningEast [facility] Hospital SystemStart: 21-64-7774OLbB,Tdap and Td Vaccines (2 - Td or Tdap)DTaP,Tdap and Td Vaccines (2 - Td or Tdap)[facility] Start: 41-37-7004YAqJ/Tdap/Td vaccine (2 - Td or Tdap)DTaP/Tdap/Td vaccine (2 - Td or Tdap)[facility] SystemStart: 14-71-3360Yaecnlf ScreeningTobacco ScreeningEast [facility] SystemStart: 10-24-2025 End: 17-93-5095Hznfdyp encounter /24/2026 1:30 PM EST Office Visit [facility] Pul[facility]Sleep Medicine [address] [place] [address] Renea Phoenix MD [address] [address] [facility] Pulmonary/Sleep MedicineStart: 08-21-2025 End: 53-92-6109Zpvfhsz encounter mvvcqoixq98/22/2025 2:30 PM EST Office Visit [facility] Internal Medicine - Family Medicine [address] [place] [address] Rodrick Richardson, DO [address], [facility] [place] [address] [facility] - [facility] Hospitaltart: 07-04-2025 End: 59-93-1677Sojojajd Yohreor7107/04/2025 8:00 PM EST Clinical Support [facility] - Sleep Disorders [address] [place] [address] [phone] Health Fairfield Hospital - Sleep Disorders Start: 40-96-1755Ejzrkqpda vaccinationInfluenza VaccineEast [facility] Regional Hospital System Comment on above:Postponed from 05/01/2025 (Vaccine Not Available)Start: 01-73-4835Nopkq BMI ScreeningAdult BMI ScreeningProCleburne Community Hospital And Nursing Home Health SystemStart: 26-68-6793Aabpjoz ScreeningTobacco ScreeningProSelect Medical [facility] SystemStart: 05-09-2025 End: 70-24-8014Uknxcaz encounter /09/2025 1:30 PM EDT Office Visit [facility] - [facility] [address] [place] [address] Rodrick Richardson, DO [address], [facility] [place] [address] [facility] Internal [facility] - [facility] MedicineStart: 05-30-6986Pvmkshdii vaccinationProSelect Medical [facility] SystemStart: 04-26-2025 End: 14-87-6110Puvqifj encounter jdveliqfm07/27/2025 9:15 AM EDT Office Visit [facility] Pulmonary/Sleep Medicine [address] [place] [phone] Nori Mccoy, HAND COKE DRAWER-HOT ROLL LAMINATOR [address] [facility], [address] [place] [address] [facility] Pulmonary/Sleep MedicineStart: 05-99-9369Cewcp BMI ScreeningAdult BMI Screening [facility] SystemStart: 65-08-4727Goxpvufdfm ScreeningDepression Screening [facility] SystemStart: 77-56-0282Kixjdwh ScreeningTobacco Screening ProMSt. [facility] SystemStart: 96-58-9621Pysqu BMI ScreeningAdult BMI Screening ProMSt. [facility] SystemStart: 71-95-9713Hewkdqm ScreeningTobacco Screening [facility] SystemStart: 02-24-2025 End: 12-72-2196Wyblxxs encounter procedureProMercy Health [facility]field Hospital - CardiovascularStart: 02-09-2025 End: 99-35-9444Zfshxam encounter /12/2025 1:30 PM EDT Office Visit [facility] [address] [facility] [address] [place] [address] Benoit Sinha MD [address] [place] [address] [facility] CardiologyStart: 09-57-6333Xpqov BMI ScreeningAdult BMI ScreeningEast [facility] Regional Hospital SystemStart: 86-71-9321Vpxzngmgvn ScreeningDepression ScreeningThe Outer Banks Hospitaltart: 65-18-2763Alursdt ScreeningTobacco ScreeningThe Outer Banks Hospitaltart: 02-06-2025 End: 61-12-0637Zvlfwvw encounter gpcfptgap83/09/2025 11:15 AM EDT Office Visit [facility] Internal Medicine - Family Medicine [address] [place] [address] Rodrick Richardson, DO [address], [facility] [place] [address] [facility] Internal Medicine - Family MedicineStart: 01-30-2025 End: 86-66-6059Ldnshyg encounter procedureNOMS ENDOCRINOLOGYComment on above: HypoglycemiaStart: 01-30-2025 End: 20-17-5759Jrkymze encounter sqgqjdahi99/02/2025 10:15 AM EDT Appointment [facility] Cardiovascular [address] [place] [address] Rodrick Richardson, DO [address] [facility], [place] [address] [facility] - CardiovascularStart: 01-17-2025 End: 11-44-1984Rxpqpab encounter procedureNOMS CI ENTComment on above:Arrived Start: 01-10-2025 End: 84-90-0981Dmuudun encounter eljcfkxja35/13/2025 2:30 PM EDT Office Visit [facility] [address] [place] [phone] Luciana Escoto MD [address], [address] [place] [address] [facility] ENDOCRINOLOGYStart: 12-27-2024 End: 68-06-1858Caztrsw encounter ylwljivjz14/29/2025 11:30 AM EDT Office Visit [facility] [address] [facility] [address] [place] [address] Susan Love MD [address] [facility] [address] [place] [address] [facility] CI ENTStart: 12-23-2024 End: 12-67-0222Muozs metabolic 1998 panel - Serum or PlasmaBasic metabolic panel Lab Routine Hypoglycemia Expected: 12/23/2024 (Approximate), Expires: 12/24/19 26NORI HealthcareComment on above:Expected: 12/23/2024 (Approximate), Expires: 12/23/2025Start: 12-23-2024 End: 12-23-2025 peptide [Mass/volume] in Serum or Plasma --fastingC PEPTIDE FASTING Lab Routine Hypoglycemia Expected: 12/23/2024 (Approximate), Expires: 12/23/2025[facility] Work Phone: Comment on above:Expected: 12/23/2024 (Approximate), Expires: 12/23/2025Start: 12-23-2024 End: 84-96-3405Hyvaofb function 2000 panel - Serum or PlasmaHepatic function panel Lab Routine Hypoglycemia Expected: 12/23/2024 (Approximate), Expires: 12/23/2025NORI HealthcareComment on above:Expected: 12/23/2024 (Approximate), Expires: 12/23/2025Start: 12-23-2024 End: 88-16-0207Hgvehia-like growth factor 2Insulin-like growth factor 2 Lab Routine Hypoglycemia Expected: 12/23/2024 (Approximate), Expires: 12/23/2025NORI HealthcareComment on above:Expected: 12/23/2024 (Approximate), Expires: 12/23/2025Start: 12-23-2024 End: 32-21-9257FqydvtzqmrEfdprvdxrq Lab Routine Hypoglycemia Expected: 12/23/2024 (Approximate), Expires: 12/23/2025NORI HealthcareComment on above: Expected: 12/23/2024 (Approximate), Expires: 12/23/2025Start: 12-23-2024 End: 24-31-1679Vijcfnt encounter vonronpjc00/25/2025 9:20 AM EDT Office Visit [facility] [address] [place] [phone] Luciana Escoto MD [address] [place] [address] [facility] ENDOCRINOLOGYComment on above:Arrived Start: 12-20-2024 End: 40-19-0665Fjbmzou encounter fslyhixrv34/22/2025 11:30 AM EDT Appointment [facility] - Pulmonary Function [address] [place] [address] Rodrick Richardson, DO [address] [facility], [place] [address] [facility] - Pulmonary FunctionStart: 12-15-2024 End: 80-73-4517Clwxljr encounter vboguoofn96/17/2025 1:00 PM EDT Office Visit [facility] Internal [facility] - Family Medicine [address] [place] [address] Rodrick Richardson, DO [address], [place] [address] [facility] Internal Medicine - Family MedicineStart: 11-28-2024 End: 23-39-1130Ncmobuk encounter /31/2025 2:00 PM EDT Office Visit [facility] [address] [facility] [address], [address] [place] [phone] Yon Lira, DO [address] [facility] [address] [place] [address] Still dont have the cervical xrays from [facility] on above:Still dont [facility]Start: 61-45-9421Yfmykjx CounselingTobacco CounselingEast [facility] Regional Hospital SystemStart: 84-72-7760Pnmfzz Wellness Visit (Medicare Advantage)Annual Wellness Visit (Medicare Advantage)Suhail Castro [facility]Start: 07-15-2024 Adult BMI ScreeningAdult BMI ScreeningEast [facility] Regional Hospital SystemStart: 07-15-2024 Tobacco ScreeningTobacco ScreeningProSelect Medical Ohiohealth Rehabilitation Hospital SystemStart: 05-31-2024 End: 55-58-5965Aclzsphfe to same day surgery fajgoo8505/31/2024 10:00 AM EDT - 05/31/2024 10:45 AM EDT Surgery [facility] - Surgery [address] [place] [address] Suzanne Nguyen MD [address] [place] [address] CYSTOSCOPY [16447 (CPT )][facility] TroyComment on above:CYSTOSCOPY [80678 (CPT )]Start: 05-31-2024 End: 93-19-0881Bmbit calibration dilat urtl strix/stenosisCYSTOSCOPY DILATATION URETHRAL Lower urinary tract symptoms 05/31/2024 10:00 AM EDTFREMTHREE [facility] Start: 05-31-2024 End: 87-32-7509XrvusyldysbrirlslUNPAUNQLPR Lower urinary tract symptoms 05/31/2024 10:00 AM EDTFSANTA PAULA HOSPITAL SURGERYStart: 18-26-9746Kcrsqlankz hospital visit by ckuuipbap06/01/2024 10:00 AM EDT Hospital Encounter [facility] [address] [place] [address] Suzanne Nguyen MD [address] [place] [address] [facility] TroyStart: 89-40-9433Kgnmhasfav ScreeningDepression ScreeningEast [facility] Regional Hospital SystemStart: 84-61-0461JZCJK-19 Vaccine ( season)COVID-19 Vaccine ( season)[facility] SystemStart: 35-61-9384Zzuznpqhy vaccinationInfluenza VaccineEast [facility] Regional Hospital SystemStart: 99-01-5233Clbdjnmqj vaccinationFlu vaccine (#1)[facility] SystemStart: 82-29-7057Qbrih BMI Follow Up PlanAdult BMI Follow Up PlanEast Ohio Regional Hospital SystemStart: 03-24-2024 End: 61-25-5015Hyaxkdt encounter upchrdfmy46/25/2024 11:00 AM EDT [facility] [address] [facility] [phone] Rordick Richardson, [address], [facility] [place] [address] [facility]ered[facility] Internal Medicine - Family MedicineStart: 03-08-2024 End: 50-69-4984Dvlpmje encounter hzstybeth13/09/2024 2:45 PM EDT Office Visit [facility] Genito-Urinary Surgeons [address] [place] [address] [address] [facility] [place] [address] Suzanne Nguyen MD [address] [place] [address] [facility] Genito-Urinary SurgeonsStart: 03-08-2024 End: 26-59-5780Bezzywa encounter procedureProMercy Health [facility]field Hospital - Mammogram DEXAStart: 02-25-2024 End: 74-11-9959EL Breast DiagnosticMammography diagnostic bilateral with CAD Imaging Routine Mass of upper outer quadrant of left breast Expected: 02/25/2024, Expires: 02/24/2025[facility] Work Phone: Comment on above:Expected: 02/25/2024, Expires: 02/24/2025Start: 02-18-2024 End: 74-73-9009Ivwxllc encounter uufjxfqje43/20/2024 2:20 PM EDT Office Visit [facility] Internal Medicine - Family Medicine [address] [place] [address] [facility] Internal Medicine - Family MedicineStart: 02-09-2024 End: 75-98-2826AQ Breast - left limitedUltrasound breast limited left Imaging Routine Mass of upper outer quadrant of left breast Expected: 02/09/2024, Expires: 02/08/2025[facility] Work Phone: Comment on above:Expected: 02/09/2024, Expires: 02/08/2025Start: 65-79-5964Bqpbyuomm vaccinationInfluenza VaccineProSelect Medical [facility] Rehabilitation Hospital SystemStart: 27-71-2613Cspupercj for malignant neoplasm of colonBon [facility] Medical CenterBuzzDash [facility] HospitalStart: 57-20-4680Abuiwwqm screenDiabetes screenBon [facility] HospitalStart: 50-71-0394Akooy BMI Follow Up PlanAdult BMI Follow Up Plan [facility] Centertart: 89-53-4416Xgrpimoft C screeningHepatitis C screen Bon [facility] HospitalStart: 78-51-7149RXR screeningHIV screenWellmont Health SystemStart: 15-20-2697Qfbvrlasjp ScreenDepression ScreenWellmont Health SystemStart: 77-47-0406Anfue panelLipidsWellmont Health SystemStart: 00-96-3961Noykhtxnp for malignant neoplasm of colonNOMS HealthcareStart: 04-72-9255Dqkqvum CounselingTobacco CounselingMercy Health Tiffin Hospital End: 86-60-1391YhuyvleljokUbwyxmyumid GI Routine Polyp of sigmoid colon, unspecified type 1 Occurrences starting 12/15/2024 until 12/15/2025[facility] Work Phone: Comment on above:1 Occurrences starting 12/15/2024 until 12/15/2025 End: 06-34-9834NF Cervical spine WO contrastWellmont Health System Work Phone: Comment on above:1 Occurrences starting 09/16/2024 until 09/16/2024ysto calibration dilat urtl strix/stenosisCYSTOSCOPY DILATATION URETHRAL Lower urinary tract symptomsFREMONT SURGERYCystourethroscopyCYSTOSCOPY Lower urinary tract symptomsFREMONT SURGERY End: 79-63-6730Nnktscjc Test Non-ProMedicaGenesite Test Non-[facility] Lab Routine Depressive disorder Chronic anxiety 1 Occurrences starting 02/06/2025 until 02/06/2026[facility] Work Phone: Comment on above:1 Occurrences starting 02/06/2025 until 02/06/2026 End: 77-59-2692Nebiaezqqy A1c/Hemoglobin.total in BloodHemoglobin A1c Lab Routine Hyperglycemia 1 Occurrences starting 03/24/2024 until 03/24/2025 [facility] HospitalDiBcomComment on above:1 Occurrences starting 03/24/2024 until 03/24/2025 End: 72-48-7618Caszykuecv A1c/Hemoglobin.total in BloodHemoglobin A1c Lab Routine Impaired fasting glucose 1 Occurrences starting 12/20/2024 until 12/20/2025[facility] HospitalQBotixComment on above:1 Occurrences starting 12/20/2024 until 12/20/2025 End: 59-84-9202HzmrdhdBawibva Lab Routine Hypoglycemia 1 Occurrences starting 12/20/2024 until 12/20/2025[employer] Work Phone: Comment on above:1 Occurrences starting 12/20/2024 until 12/20/2025 End: 29-96-8129BEK [facility] Routine PONCHO (obstructive sleep apnea) 1 Occurrences starting 04/26/2025until 04/26/2026 [facility] Work Phone: Comment on above:1 Occurrences starting 04/26/2025 until 04/26/2026 End: 01-81-5872Gengygtto function test Complete PFT w/ BD (Spirometry (Flow Volume Loop) pre/post short acting bronchodilator w/ DLCO (diffusion study) and Lung Volume)Pulmonary function test Complete PFT w/ BD (Spirometry (Flow Volume Loop) pre/post short acting bronchodilator w/ DLCO (diffusion study) and Lung Volume) PFT Routine Asthma, unspecified asthma severity, unspecified whether complicated, unspecified whether persistent 1 Occurrences starting 12/16/2024 until 12/15/2025Pro[employer] Games & Entertainment SystemComment on above:1 Occurrences starting 12/16/2024 until 12/15/2025 End: 65-54-4208Gqshxugwzbrc [Mass/volume] in Serum or PlasmaTestosterone Lab Routine Hot flashes 1 Occurrences starting 03/24/2024 until 03/24/2025[employer] Work Phone: Comment on above:1 Occurrences starting 03/24/2024 until 03/24/2025 End: 57-29-6899Befztrtdhms [Units/volume] in Serum or PlasmaTSH Lab Routine Hot flashes Class 1 obesity due to excess calories with serious comorbidity and body mass index (BMI) of 30.0 to 30.9 in adult Mixed hyperlipidemia 1 Occurrences starting 03/24/2024 until 03/24/2025Pro[employer] & Entertainment SystemComment on above:1 Occurrences starting 03/24/2024 until 03/24/2025XR Shoulder - left Views [facility] Immunizations Immunization DateImmunizationNotesCare YxzimtebIssvolak22-22-8270Gmukpfscz, injectable, Madin Sasha Canine Kidney, preservative free, quadrivalentMary Kuns HAND COKE DRAWER-MANAGER UTILIZATION REVIEW Work Phone: [facility] HospitalIrhupd28-23-1096svzmmeysv virus vaccine, unspecified formulationMary Kuns HAND COKE DRAWER-MANAGER UTILIZATION REVIEW Work Phone: [facility] HospitalFgyntv14-09-3865MMMCN-22, mRNA, LNP- S, PF, 100mcg/0.5mL DoseMary Kuns HAND COKE DRAWER-MANAGER UTILIZATION REVIEW Work Phone: [facility] HospitalVnpryk17-45-5757QGSRN-88, mRNA, LNP- S, PF, 100mcg/0.5mL DoseMary Kuns HAND COKE DRAWER-MANAGER UTILIZATION REVIEW Work Phone: [facility] HospitalRzbtge44-11-0677KSNYR-67, mRNA, LNP- S, PF, 100mcg/0.5mL DoseMary Kuns HAND COKE DRAWER-MANAGER UTILIZATION REVIEW Work Phone: [facility] HospitalCwbqjd93-59-2896KPYSC-29, mRNA, LNP- S, PF, 100mcg/0.5mL DoseMary Kuns HAND COKE DRAWER-MANAGER UTILIZATION REVIEW Work Phone: [facility] HospitalKkgcld90-75-4955Bnkmlduvn, injectable, Madin Sasha Canine Kidney, preservative free, quadrivalentMary Kuns HAND COKE DRAWER-MANAGER UTILIZATION REVIEW Work Phone: [facility] HospitalLyqvfy13-18-6776bewoajcdt, seasonal, injectableMary Kuns HAND COKE DRAWER-MANAGER UTILIZATION REVIEW Work Phone: [facility] HospitalXfkymc03-97-2805gsmzbltvz, injectable, quadrivalent, preservative freeMary Kuns HAND COKE DRAWER-MANAGER UTILIZATION REVIEW Work Phone: [facility] HospitalJqztto07-50-0787udaqqtidq, seasonal, injectableMary Kuns HAND COKE DRAWER-MANAGER UTILIZATION REVIEW Work Phone: [facility] HospitalQvisjb45-17-7064Xtanbppek, injectable, Madin Sasha Canine Kidney, preservative free, quadrivalentMary Jamess HAND COKE DRAWER-MANAGER UTILIZATION REVIEW Work Phone: [facility] HospitalQBotixMupdvw73-91-2189lcpisav toxoid, reduced diphtheria toxoid, and acellular pertussis vaccine, adsorbedMary Jamess HAND COKE DRAWER-MANAGER UTILIZATION REVIEW Work Phone: [facility] HospitalQBotixJpntfn07-86-0224fbwmnnbns, seasonal, injectable, preservative freeMary Kuns HAND COKE DRAWER-MANAGER UTILIZATION REVIEW Work Phone: [facility] HospitalArdianGikbmt53-10-6050ashnycuap B vaccine, adult dosageMary Kuns HAND COKE DRAWER-MANAGER UTILIZATION REVIEW Work Phone: [facility] HospitalArdianWsnxns50-45-4386bxefkpuip B vaccine, adult dosageMary Kuns HAND COKE DRAWER-MANAGER UTILIZATION REVIEW Work Phone: [facility] HospitalQBotixVkkuwi95-74-4288ptdylicja B vaccine, adult dosageMary Kuns HAND COKE DRAWER-MANAGER UTILIZATION REVIEW Work Phone: [facility] [employer] Payers DatePayer CategoryPayerPolicy [id number]-pay2025Medicare (Managed Care)[employer]HE[employer] MEDICARE ADVANTAGE Member Subscriber Plan / Payer (Effective 2024-Present) Name: Avel Funes Relation to Subscriber: Self Name: Avel Funes Payer ID: Not on file Group ID: [id number] Type: Not on file Address: [address] [place] [id number] 2022MedicareANTHEMcareANTHEM MEDICARE ANTHEM MEDICARE ADVANTAGE [id number] 2021-Present [phone] [address] [place] [address] [id number] 2022[facility] Subscriber Plan / Payer (Effective 2021-Present) Name: Avel Funes Relation to Subscriber: Self Name: Avel Funes Payer ID: [id number] (NAIC) Group ID: [id number] Type: Not on file Address: [facility] [address] [place] [id number] [id number] 1.2.840.060235.1.13.239.2.7.3.590889.34514-59-5912Ddaekr's Compensation [id number] 2.0.1.440716.3.57[id number] 2..1.818885.3.57[id number] 2.0.1.933456.3.57[id number] 2.0.1.658271.3.57[id number] 2.0.1.639868.3.579.[id number] 2.0.1.587464.3.57[id number] 2.16.840.1.085437.3.57[id number] 2.16.840.1.236784.3.57[id number] 2.16.840.1.309012.3.579.[id number] 2.16.840.1.069943.3.57[id number] 2.16.840.1.178635.3.579.[id number] 2.840.1.367832.3.57[id number] 2.840.1.970050.3.57[id number] 2.840.1.403586.3.579.[id number] 2.840.1.076444.3.57[id number] 2.840.1.453248.3.579.2.61106-09-3578Vunbgex03990326 2.840.1.658570.3.57[id number] 2.840.1.910090.3.579.2.91[id number] 2.840.1.539959.3.579.2.751084-85-3815Ccmwaog4740507 2.16840.1.601365.3.57[id number] 2.840.1.740820.3.579.2.345595-59-1933Vhbzuar8802662 2.16840.1.507446.3.579.2.159669-31-9205Esnmxet3638131 2.840.1.321383.3.579.[id number] 2.840.1.562511.3.57[id number] 2.840.1.861101.3.579.2.485124-10-8157Sawyicp741681032 2.840.1.818128.3.579.2.160273-96-7082Qgveqak262376395 2.0.1.656549.3.579.2.544908-25-4839Egiktaz587886869 2.0.1.667470.3.579.2.135884-93-1531Jkukowc893720241 2.840.1.992191.3.579.2.621729-92-0229Cmphrqj467548199 2..1.891585.3.579.2.835753-92-7922Faqqipy797451386 2.0.1.320002.3.579.2.006673-17-6262Nlmbdkx390701912 2.0.1.255097.3.579.2.635747-32-0490Xkbmzwu20601638 2.840.1.550252.3.579.2.[id number] 2.840.1.221542.3.579.2.9851 [id number] 2.840.1.394175.3.57[id number] 2.840.1.011836.3.579.2.061[id number] 2..840.1.020597.3.579.2.473528-37-0735Gijfnls80198501 2.16.840.1.433707.3.57[id number] 2..840.1.147557.3.579.2.817424-63-0609Jtzmeor872930010 2..840.1.915292.3.579.2.325263-85-7857Dmejwdy697621198 2..840.1.767900.3.579.2.056560-03-4207Zgahxwb439148179 2.0.1.970655.3.579.2.568092-47-6414Sqoinjv908029502 2.0.1.638426.3.579.2.339086-19-2416Iapfmln926072508 2.0.1.626852.3.579.2.390164-42-5306Cwdrpz's [id number] Health InsuranceBarney Children'S Medical [id number] [id number]-293p-g571991l12gk [id number] 2..1.133041.3.579.2.531 Social History DateTypeDetailFacilityTobacco smoking status NHISUnknown if ever smokedEast [facility] Regional Hospital SystemStart: 93-44-9898Foq Assigned At [facility]'s Hospital for Rehabilitationtart: 03-25-2023 End: 29-36-5506Bjtlkdl smoking status NHISNever smoked tobaccoEast Ohio Regional Hospital SystemStart: 03-25-2023 End: 83-01-2345Jrnimyr use and exposureUser of smokeless tobaccoEast Ohio Regional Hospital SystemHistory of tobacco useSnuff UserEast Ohio Regional Hospital SystemStart: 05-17-2024 End: 09-36-9300Pzvsbimib beverage intakeCurrent non-drinker of alcohol (finding) [facility] Hospitaltart: 05-17-2024 End: 59-93-8045Ratlwilmc beverage intakeThe Outer Banks Hospitaltart: 05-17-2024 End: 05-20-9262Azpfbnq use panelMercy Health Tiffin HospitalHow hard is it for you to pay for the very basics like food, housing, medical care, and heatingNot hard at allThe Outer Banks Hospitaltart: 59-75-5276AdkLhhp (finding)[facility] Hospitaltart: 81-49-5755Lxvxgx identityIdentifies as male gender (finding) [facility] Hospitaltart: 49-39-5183[place] orientationHeterosexual (finding) [facility] SystemHistory of tobacco useChews TobaccoBon [facility] CenterBuzzDash [facility] HospitalStart: 08-15-2024 End: 71-15-5656Pddtpkpes beverage intakeEx-drinker (finding)[facility] SystemHas the [employer] gas, oil, or water [employer] (acquired by [employer] in 2014) threatened to shut off services in your home in past 12Gl[facility] Falls HospitalHow often to you have a drink containing alcohol?NeverMercy Health Tiffin HospitalDo you feel stress - tense, restless, nervous, or anxious, or unable to sleep at night because your mind is troubled all the time - these days [OSQ]To some extentMercy Health Tiffin HospitalTobacco smoking status NHISTobacco smoking consumption unknownCenterPointe HospitalStart: 57-47-3694Mgh assigned at birthNot on fileCenterPointe HospitalStart: 12-15-7134Gviqseiyo beverage intakeLifetime non-drinker (finding)[facility] HealthcareStart: 14-88-0585Ijomnjl CommentChewing tobacco constantly daily [facility] SystemAre you now , , , , never or living with a partner?MarriedMercy Health Tiffin HospitalNEGATED: Highlighted rowStart: NINFHistory of tobacco usePassive smokerHealthsouth Medical CenterBuzzDash [facility] Goals DatePatient GoalDesired Activity/StatePersonal health goalComment on above: Evaluation of progress towards goal: Patient plans to return home with self care. Functional Status ZtfbVtiftejeyqRupotfExlbkjgd55-99-4904Voarn score [AUDIT-C]0 12/15/2024 1:32 PM EDT Rodrick Richardson, [facility] Clinical Notes 04-03-2022 to 06-29-2025 Note Date & QcabRgcwJvotwvfc70-73-2354 History of Present illness Narrative* Rodrick Richardson, DO - 06/29/2025 11:45 AM EDT Subjective Patient ID: Avel Funes is a 49 y.o. male. Avel presents today for a rash on his feet. He has had it for several weeks. He has been using ihyy-esl-frmbbig antifungal with little benefit. It does not seem to be working. It itches. It isonly on his right foot. Does have some brown discoloration towards the toenails of several of his toes. He had to go to the urgent care a few days ago because of left shoulder pain. They took an x-ray which showed mild degenerative changes. It was hurting like a toothache. It was very painful at times with the pain waxing and waning. There was no injury. He has an MRI of his cervical spine coming up. The following portions of the patient's history were reviewed and updated as appropriate: allergies, current medications, past family history, past medical history, past social history, past surgicalhistory, problem list, and medication reconciliation was completed including current medication andpost discharge medication. Review of Systems Constitutional: Negative. Musculoskeletal: Positive for arthralgias, back pain and neck pain. Skin: Positive for rash. Objective Physical Exam Vitals reviewed. Constitutional: General: He is not in acute distress. Appearance: He is not ill-appearing. Skin: Findings: Rash (Mildly erythematous rash on the right foot primarily the plantar surface, between the toes in the web spaces and the dorsum of the toes. There was no clear defined border. There is some slight scale. There is also dry skin and fissures dorsally) present. Neurological: Mental Status: He is alert. Psychiatric: Mood and Affect: Mood normal. Behavior: Behavior normal. Thought Content: Thought content normal. Judgment: Judgment normal. Assessment/Plan Avel was seen today for rash on rt foot/ possible athletes foot. Diagnoses and all orders for this visit: Tinea pedis of right foot He has some features of tinea pedis but is not classic athlete's foot although he has partially treated it with whad-gsz-zpavonm medication. At this point I am going to continue with antifungal treatment with ketoconazole 1 application daily. Pictures were taken of the rash. Return to the office ifno better. Follow up with specialists for neck and back pain. Other orders - ketoconazole (NIZORAL) 2 % cream; Apply 1 Application topically in the morning. documented in this encounterMount Ascutney HospitalAeria Games & Entertainment Raewwh59-91-0834 Evaluation note* Diagnosis Onset Date Resolution Status Admit Date Left shoulder pain acuteOctober 2024 5:09pm [facility] Work Phone: 1(289) 729-604410-07-2025 NoteUT Electrophysiology Consult Note [place] [facility] Reason for visit: HPI: Avel Funes is a 49 y.o. year old with past medical history of obesity, syndrome X, hyperlipidemia was initially seen by Dr. WOLF for syncope. As per the note he first had his episode in October 2024 when he woke up and definitely did experience a syncope after he stood up. He had recurrence of those episodes again immediately. He underwent further evaluation in terms of the stress test which was negative and subsequently had a tilt table test which was also negative. At baseline he had a supine blood pressure of 146 over 82 mm and a heart rate of 68 and a tilting to 70 degree the lowest blood pressure noted was 132/98 mmHg and a heart rate of 94bpm. Subsequently an event monitor was placed from 01/30/2025 to 03/01/2025 and this did not reveal any significant event except for 1 episode of notable long RP tachycardia that was noted on 02/09/2025 at 3 PM where the heart rate was 160 bpm. There were otherwise nonsustained SVT noted for about 2 to 3 seconds but no VT seen. Patient activated symptoms correlated with sinus tachycardia PMH: Medical History[1] PSH: Surgical History[2] SH: Social Drivers of Health Tobacco Use: Low Risk (06/06/2025) Patient History Smoking Tobacco Use: Never Smokeless Tobacco Use: Never Passive Exposure: Never Recent Concern: Tobacco Use - High Risk (05/09/2025) [facility] Patient History Smoking Tobacco Use: Never Smokeless Tobacco Use: Current Passive Exposure: Not on file Alcohol Use: Not At Risk (12/15/2024) [facility] [employer] [facility] AUDIT-C Frequency of Alcohol Consumption: Never Average Number of Drinks: Patient does not drink Frequency of Binge Drinking: Never Financial Resource Strain: Low Risk (03/23/2024) [facility] Overall Financial Resource Strain (CARDIA) Difficulty of Paying Living Expenses: Not hard at all Food Insecurity: No Food Insecurity (05/09/2025) [facility] Hunger Screening Within the past 12 months we worried whether our food would run out before we got money to buy more.: Never True Within the past 12 months the food we bought just didn't last and we didn't have money to get more.: Never True Transportation Needs: No Transportation Needs (11/28/2024) [facility] PRAPARE - Transportation Lack of Transportation (Medical): No Lack of Transportation (Non-Medical): No Physical Activity: Inactive (12/15/2024) [facility] [employer] [facility] Exercise Vital Sign Days of Exercise per Week: 0 days Minutes of Exercise per Session: 0 min Stress: Stress Concern Present (12/15/2024) [facility] [employer] [place] of Occupational Health - Occupational Stress Questionnaire Feeling of Stress : To some extent Social Connections: Moderately Integrated (05/09/2025) [facility] Social Connection and Isolation Panel [NHANES] Frequency of Communication with Friends and Family: Twice a week Frequency of Social Gatherings with Friends and Family: Twice a week Attends Jainism Services: 1 to 4 times per year Active Member of Clubs or Organizations: No Attends Club or Organization Meetings: Never Marital Status: Intimate Partner Violence: Unknown (10/22/2023) [place] Safety & Environment Fear of Current or Ex-Partner: Not on file Emotionally Abused: Not on file Physically Abused: Not on file Sexually Abused: Not on file Physically or Sexually Abused: Not on file Depression: At risk (05/09/2025) [facility] PHQ-2 Total Score: 13 Housing Stability: Low Risk (11/28/2024) [facility] Housing Instability Are you worried or concerned that in the next two months you may not have stable housing that you own, rent or stay in as a part of a household?: No Utilities: Not At Risk (11/28/2024) [facility] from [facility] CenterCUB[facility], [facility] Utilities Threatened with loss of utilities: No Health Literacy: Not on file Allergies: Allergies[3] Weight: 93kg Visit Vitals BP 118/87 (BP Location: Left arm, Patient Position: Sitting) Pulse 77 Ht 1.727 m (5' 8 ) Wt 93 kg (205 lb) SpO2 98% BMI 31.17 kg/m??? Smoking Status Never BSA 2.11 m??? Meds: Medications Ordered Prior to Encounter[4] ROS: Review of Systems Constitutional: Positive for malaise/fatigue and weight gain. Negative for weight loss. Eyes: Positive for blurred vision and discharge. Cardiovascular: Positive for chest pain, orthopnea, palpitations and syncope. Respiratory: Positive for shortness of breath, sleep disturbances due to breathing and snoring. Musculoskeletal: Positive for joint pain and muscle weakness. Neurological: Positive for dizziness. Physical Exam: Constitutional General Appearance: well-nourished, (more content not included)...[facility]09-09-[facility] History of Present illness Narrative* Rodrick Richardson, DO - 05/09/2025 1:30 PM EDT Subjective SUBJECTIVE: Patient ID: Avel Funes is a 49 y.o. male who presents for a Medicare Annual Wellness exam. Avel presents today for his annual Medicare wellness. He has no new problems to discuss. He is seeing the specialists. He is still having issues with intermittent dizziness. He did have an episode of left-sided facial numbness that lasted for a short period of time and then resolved. It happened in the morning a few weeks ago. He did not seek emergent care. was worried that he might have been having a stroke. He was told by his eye doctor that he might have had a mini stroke . He was seeing Neurology for a worker's compensation case but they need a new referral for the non worker's compensation problem. He has not passed out since October. noticed slurred speech once. They are concerned about a stroke or MS. During the visit he did have an episode of dizziness where he lay down. We did orthostatic blood pressure and pulses and it was suggestive of orthostasis. He checks his blood pressure at home and it typically it is elevated. The following portions of the patient's history were reviewed and updated as appropriate: allergies, current medications, past family history, past medical history, past social history, past surgicalhistory and problem list. AWV FLOWSHEET : Lifestyle Assessment Do you smoke or use smokeless tobacco?: No If you smoke or use smokeless tobacco, are you ready to quit?: NA Are you exposed to secondhand smoke?: No On average, how many drinks of alcohol do you consume in a week?: None Do you exercise for 30 or more minutes on average at least 3 days a week?: Sometimes Do you have any tooth, denture, or oral problems?: (!) Yes Do you snore or has anyone told you that you snore?: (!) Yes Do you try to eat a balanced diet?: (!) No Do you experience leakage of urine, also known as urinary incontinence?: (!) Sometimes Do you have difficulty bathing?: (!) Yes Do you have difficulty dressing?: No Do you have difficulty grooming?: No Do you have difficulty eating?: (!) Yes Do you have difficulty getting out of a chair?: No Do you have difficulty walking?: (!) Yes Do you have difficulty using the toilet?: No Do you have difficulty doing laundry?: No Do you have difficulty with housekeeping?: No Do you have difficulty preparing a meal?: No Do you have difficulty shopping?: (!) Yes Do you have difficulty using transportation?: (!) Yes Do you have difficulty paying bills?: No Do you have difficulty managing finances?: No Fall Risk Fall Risk Assessment Completed?: Yes Have you fallen in the past year?: (!) Yes How many times?: 2+ Were you injured?: No Are you worried about falling?: (!) Yes Do you feel unsteady when standing or walking?: (!) Yes Risk Stratification: High Risk Depression Screening Little interest or pleasure in doing things: Not at all Feeling down, depressed, or hopeless: (!) Several days Trouble falling or staying asleep, or sleeping too much: (!) Nearly every day Feeling tired or having little energy: (!) Nearly every day Poor appetite or overeating: (!) Nearly every day Feeling bad about yourself - or that you are a failure or have let yourself or your family down: (!) Nearly every day Trouble concentrating on things, such as reading the newspaper or watching television: Not at all Moving or speaking so slowly that other people could have noticed. Or the opposite - being so fidgety or restless that you have been moving around a lot more than usual: Not at all Thoughts that you would be better off , or of hurting yourself in some way: Not at all PEG Scale What number best describes your pain on average in the past week?: 7 What number best describes how, during the past week, pain has interfered with your enjoyment of life?: 7 What number best describes how, during the past week, pain has interfered with your general activity?: 5 PEG Pain Total Score: 6.33 Safety Assessment Do you have throw rugs on the floor?: No Do you feel safe at your home?: Yes Do you feel unsteady when walking?: (!) Yes Are you having difficulty with driving?: (!) Yes Do you have trouble seeing?: (!) Yes Do you use a bath bar/seat?: No Do you use a raised toilet seat?: No Do you use a cane?: No Do you use a walker?: No Do you use a wheelchair?: No Hearing Assessment Do you strain or struggle to hear/understand conversations?: No Do you have trouble hearing the television or radio when others do not?: No Does your family ever voice concerns about your hearing?: No Do you wear hearing aid/s?: No Personal Health During the past 4 weeks, how would you rate your overall health?: (!) Fair Do you understand how to take all of your medications?: Yes How confident are you that you can control and manage most of your health problems?: (!) Somewhat confident In the past 12 months, how many times have you been hospitalized?: (!) One End of Life Planning Do you have a living will?: (!) No Do you have a durable power of commercial litigation attorney?: (!) No Cognitive Screening Do you have trouble remembering or recalling facts or events?: (!) Yes Do family members or caregivers report that you have difficulty remembering things?: (!) Yes 6-Cit: Normal REVIEW OF SYSTEMS: Review of Systems Constitutional: Negative. HENT: Negative. Respiratory: Negative. Cardiovascular: Negative. Gastrointestinal: Negative. Endocrine: Negative. Genitourinary: Negative. Musculoskeletal: Positive for arthralgias, back pain and neck pain. Skin: Negative. Allergic/Immunologic: Negative. Neurological: Positive for syncope, speech difficulty and numbness. Psychiatric/Behavioral: Positive for confusion (trouble with memory), decreased concentration, dysphoric mood and sleep disturbance. Objective PHYSICAL EXAMINATION: Vitals: 05/09/25 1329 BP: 138/78 BP Site: Left Arm BP Postition: Sitting BP CUFF SIZE: M (9-13 inches) Pulse: 108 Resp: 18 Temp: 36.8 C (98.2 F) TempSrc: Oral SpO2: 97% Weight: 94.8 kg (209 lb) Height: 173 cm (5' 8.11 ) Physical Exam Assessment/Plan ASSESSMENT/PLAN Encounter Diagnoses Name Primary? Medicare annual wellness visit, subsequent Yes Class 1 obesity due to excess calories with serious comorbidity and body mass index (BMI) of 31.0 to 31.9 in adult Screening for depression Mixed hyperlipidemia Paresthesia Dizziness Essential hypertension Health maintenance discussed. Depression screen was positive. He is currently on antidepressants. His GeneSight testing was discussed. He is on appropriate medications. We will continue the same for now. At least 3 minute spent administering and discussing. Cognitive evaluation did not reveal any impairment. He does not have advanced directives in place. He was encouraged to do so. Check BMP and lipids. We will refer to Neurology for his paresthesias and dizziness. He did have an episode of orthostatic hypotension here in the office. I put a keep him on his current dose of lisinopril. He was encouraged to stay hydrated and salt load. No follow-ups on file. documented in this encounterMercer County Community Hospitalmobile mum [id number] Miscellaneous Notes* Telephone Encounter - Senait Jacobs - 05/03/2025 1:39 PM EDT 04/26 order received Called PT LM to schedule sleep study. PSG order & 04/26 Darius notes in Epic documented in this encounterMercy [facility]09-03-2025 Telephone encounter Note* Telephone Encounter - Senait Reynaldo - 05/03/2025 1:39 PM EDT 04/26 order received Called PT LM to schedule sleep study. PSG order & 04/26 Darius notes in Epic [facility]08-27-2025 History of Present illness Narrative* Nori Mccyo, HAND COKE DRAWER-HOT ROLL LAMINATOR - 04/26/2025 9:15 AM EDT Images from the original note were not included. Chief Complaint: Avel Funes is a 49 y.o. male present for initial visit regarding history of PONCHO. HPI Sleep Questionnaire 04/25/2025 9:47 PM EDT - Filed by Patient Have you previously had a sleep study? Yes Do you have a partner (girlfriend/boyfriend, spouse, etc) ? Yes Do you or your bed partner currently notice any of the following symptoms? Excessive daytime sleepiness Yes Frequent snoring Yes Snore yourself awake from sleep No Witnessed apneas (holding breath during sleep) No Waking up choking, gasping or short of breath Yes Excessively sweating overnight No Waking up with dry mouth or sore throat Yes Morning headaches No Waking up to urinate at night No Nighttime heartburn interfering with sleep Yes Frequent disturbing dreams or nightmares No Sleep walking No Unusual behaviors during sleep No Injury to yourself or partner during sleep No Imagine seeing or hearing things that are not real as you fall asleep or wake up Yes Momentary inability to move body (paralysis) as falling askeep or waking up No Insomnia (difficulty falling asleep or staying asleep) Yes Teeth clenching/grinding Yes Waking up disoriented / confused No Do you currently receive medical equipment for sleep conditions? No Have you had any other treatments for sleep apnea? Yes How likely are you to doze off or fall asleep in the following situations, in contrast to feeling just tired? Sitting and reading slight chance of dozing Watching TV slight chance of dozing Sitting inactive in a public place (e.g. a theater or a meeting) no chance of dozing As a passenger in a car for an hour without a break slight chance of dozing Lying down to rest in the afternoon when circumstances permit moderate chance of dozing Sitting and talking to someone no chance of dozing Sitting quietly after a lunch without alcohol no chance of dozing In a car, while stopped for a few minutes in traffic no chance of dozing Weekday Sleep Schedule What time do you get into bed? 2:00 AM What time do you try to go to sleep? 2:00 AM Time it takes to fall asleep (minutes) 90 What time do you wake up? 9:00 AM What time do you get out of bed? 9:00 AM Weekend Sleep Schedule What time do you get into bed? 2:00 AM What time do you try to go to sleep? 2:00 AM Time it takes to fall asleep (minutes) 90 What time do you wake up weekends? 11:00 AM What time do you get out of bed? 11:01 AM Do you watch TV, read or use phone/computer in bed? Yes Number of ekkwiu-ii-rcu-night awakenings per night? 0 Cause of awakenings (if applicable): Total average number of hours of sleep per night: 5 How many naps do you take a day and for how long? 0 Do you feel refreshed after your naps? Do you do shift work or work overnights? No History of PONCHO with sleep study in 2014. He reports he cord would be wrapped around his neck. Waterwas spitting in his face when he did wear. He was seen in our office in 2017 and encouraged to havea titration study completed. At this time he was on BIPAP. He never followed through with the study. Reports perfectly analy he will not use CPAP. History UPPP with Dr. Jacob around 10 years ago. November 28 he collapsed with hypovolemia. He reports he is here only for his . He does not feellike he falls asleep but she does so he will go with whatever she says. He is sleeping in a chair downstairs due to a previous injury. Positives from above questionnaire: Insomnia: hard time falling asleep. reports he falls asleep multiple times per day. Hallucinating: his sleep patterns are bad. He reports he thought were real that were not. If this happens he gets less than 4 hours of sleep. Clenching: Jaw hurts at times Snoring loud- yes per Waking up/choking/gasping: he does not feel like he does this Dry/mouth sore: reports he is always dry even during the day GERD: gets really bad at times. Follows with PCP for this on omeprazole if he eats something that he knows it will be related to this. ETOH: none Marijuana: none Tobacco: none Family history of PONCHO Denies any dyspnea, fevers, chills, chest pain or hemoptysis. EPWORTH SLEEPINESS SCALE 04/26/2025 9:00 AM [place] Sleepiness Scale Sitting and Reading 2 Watching TV 2 Sitting inactive in a public place (theater, meeting) 0 As a passenger in a car for an hour without a break 3 Lying down in the afternoon to rest 2 Sitting and talking to someone 0 Sitting quietly after lunch (without alcohol) 0 In a car, while stopped for a few minutes in traffic 0 Total 9 OARRS REVIEWED Reviewed: no PMH PERTINENT HISTORY His pertinent medical history includes Past Medical History: Diagnosis Date Allergic Anxiety Anxiety disorder Asthma Back pain Cervicalgia Depression Fibromyalgia GERD (gastroesophageal reflux disease) Hyperlipidemia Hypertension Impingement syndrome of right shoulder region Obesity PONCHO (obstructive sleep apnea) has, but does not wear cpap Palpitation Pneumonia RAD (reactive airway disease) Shingles 2018 Not positive on date Varicella CURRENT MEDICATIONS Reviewed with patient. Current Outpatient Medications: albuterol (PROVENTIL HFA;VENTOLIN HFA) 90 mcg/actuation inhaler, INHALE 2 PUFFS EVERY 6 HOURS NEEDED FOR WHEEZING, Disp: 8 g, Rfl: 1 calcium citrate (CALCITRATE) 200 mg (950 mg) tablet, TAKE 2 TABLETS BY MOUTH 3 TIMES A DAY, Disp: 540 tablet, Rfl: 1 cetirizine (ZyrTEC) 10 mg tablet, Take 1 tablet (10 mg total) by mouth in the morning., Disp: , Rfl: cholecalciferol, vitamin D3, 2,000 units tablet, , Disp: , Rfl: diclofenac (VOLTAREN) 75 mg EC tablet, Take 1 tablet (75 mg total) by mouth in the morning and 1 tablet (75 mg total) in the evening. Take with meals., Disp: , Rfl: fluticasone furoate (ARNUITY ELLIPTA) 100 mcg/actuation blister with device, Inhale 1 puff in the morning., Disp: 30 each, Rfl: 5 hydrOXYzine (ATARAX) 10 mg tablet, TAKE 1 TABLET BY MOUTH EVERY DAY AT NIGHT, Disp: 90 tablet, Rfl:1 ketoconazole (NIZORAL) 2 % shampoo, , Disp: , Rfl: lisinopriL (PRINIVIL,ZESTRIL) 10 mg tablet, Take 1 tablet (10 mg total) by mouth in the morning., Disp: 30 tablet, Rfl: 1 meclizine (ANTIVERT) 12.5 mg tablet, Take 1 tablet (12.5 mg total) by mouth 3 (three) times a day as needed for dizziness., Disp: 30 tablet, Rfl: 0 mirtazapine (REMERON) 15 mg tablet, TAKE 1 TABLET BY MOUTH EVERY DAY, Disp: 90 tablet, Rfl: 1 omeprazole (PriLOSEC) 20 mg capsule, TAKE 1 CAPSULE BY MOUTH EVERY DAY IN THE MORNING BEFORE BREAKFAST, Disp: 90 capsule, Rfl: 0 oxyCODONE-acetaminophen (PERCOCET) 5-325 mg per tablet, Take 1 tablet by mouth every 6 (six) hours as needed for pain., Disp: , Rfl: pregabalin (LYRICA) 100 mg capsule, Take 1 capsule (100 mg total) by mouth. 4 times a day, Disp: , Rfl: rosuvastatin (CRESTOR) 10 mg tablet, TAKE 1 TABLET (10 MG TOTAL) BY MOUTH EVERY MORNING., Disp: 90 tablet, Rfl: 1 STOOL SOFTENER 100 mg capsule, TAKE 1 CAPSULE BY MOUTH EVERY DAY, Disp: 30 capsule, Rfl: 5 venlafaxine XR (EFFEXOR-XR) 150 mg 24 hr capsule, TAKE 1 CAPSULE (150 MG TOTAL) BY MOUTH IN THE MORNING, Disp: 90 capsule, Rfl: 0 Vitals: 04/26/25 0918 BP: 114/78 Pulse: 90 SpO2: 95% Weight: 95 kg (209 lb 6.4 oz) Height: 172.7 cm (5' 8 ) ALLERGIES Reviewed with patient. Ibuprofen, Penicillins, Prednisone, and [place] FAMILY HISTORY Family History Problem Relation Age of Onset Fibromyalgia Mother Lupus Mother Hyperlipidemia Mother Asthma Father Arthritis Father Hypertension Father Prostate cancer Father 70 75 in 25 COPD Father Diabetes Father Hyperlipidemia Father Uterine cancer Sister Colon cancer Maternal Grandmother ADD / ADHD Son Heart disease Maternal Grandfather Lung cancer Maternal Grandfather Alcohol abuse Sister Lung cancer Paternal Uncle Breast cancer Neg Hx SOCIAL HISTORY Social History Socioeconomic History Marital status: Tobacco Use Smoking status: Never Smokeless tobacco: Current Types: Chew Tobacco comments: Chewing tobacco constantly daily Vaping Use Vaping status: Never Used Substance and Sexual Activity Alcohol use: No Drug use: No Sexual activity: Yes Partners: Female control/protection: Surgical Social Drivers of Health Financial Resource Strain: Low Risk (03/23/2024) Overall Financial Resource Strain (CARDIA) Difficulty of Paying Living Expenses: Not hard at all Food Insecurity: No Food Insecurity (02/06/2025) Hunger Screening Food Insecurity - Worry: Never True Food Insecurity - Inability: Never True Transportation Needs: No Transportation Needs (11/28/2024) PRAPARE - Transportation Lack of Transportation (Medical): No Lack of Transportation (Non-Medical): No Physical Activity: Inactive (12/15/2024) Exercise Vital Sign Days of Exercise per Week: 0 days Minutes of Exercise per Session: 0 min Stress: Stress Concern Present (12/15/2024) [place] [employer] - Occupational Stress Questionnaire Feeling of Stress : To some extent Interpersonal Safety: Not At Risk (11/28/2024) Humiliation, Afraid, Rape, and Kick questionnaire Fear of Current or Ex-Partner: No Emotionally Abused: No Physically Abused: No Sexually Abused: No Housing Instability: Low Risk (11/28/2024) Housing Instability Housing Instability: No TRAVEL HISTORY Denies recent travel. ROS All 11 systems have been reviewed: Review of Systems Constitutional: Positive for fatigue. Negative for chills and fever. Respiratory: Negative for cough, shortness of breath and wheezing. Cardiovascular: Negative for chest pain/discomfort. All other systems are reviewed and are negative except as noted. PHYSICAL EXAM Vital signs BP 114/78 Pulse 90 Ht 172.7 cm (5' 8 ) Wt 95 kg (209 lb 6.4 oz) SpO2 95% BMI 31.84 kg/m Physical Exam Vitals and nursing note reviewed. Constitutional: Appearance: Normal appearance. He is obese. Cardiovascular: Heart sounds: Normal heart sounds. Pulmonary: Breath sounds: Normal breath sounds. Musculoskeletal: Cervical back: Neck supple. Skin: General: Skin is warm and dry. Neurological: Mental Status: He is alert and oriented to person, place, and time. Psychiatric: Mood and Affect: Mood normal. Behavior: Behavior normal. PERTINENT LAB RESULTS Lab Results Component Value Date CO2 12/24/2024 Lab Results Component Value Date TSH 1.75 04/19/2024 IMAGING Echo complete W/O contrast Result Date: 02/24/2025 Left Ventricle: Left ventricle appears normal in size. Systolic function is normal with an ejectionfraction of 55-60%. The quantitative EF by 2D Milian biplane is 55%. There is no diastolic dysfunction and normal left atrial pressure. Lateral E' is 14.80 cm/s. Medial E' is 9.19 cm/s. Average E' is 12.0 cm/s. Vas carotid duplex bilateral Result Date: 02/24/2025 Right: No plaque or significant flow abnormality of the extracranial carotid arteries; ICA 52/22 cm/sec. Antegrade vertebral artery flow. Left: No plaque or significant flow abnormality of the extracranial carotid arteries; ICA 75/31 cm/sec. Antegrade vertebral artery flow. Conclusions: BILATERAL: Normal extracranial carotid duplex evaluation. Antegrade vertebral artery flow. Echo complete W/O contrast Result Date: 02/24/2025 Left Ventricle: Left ventricle appears normal in size. Systolic function is normal with an ejectionfraction of 55-60%. The quantitative EF by 2D Milian biplane is 55%. There is no diastolic dysfunction and normal left atrial pressure. Lateral E' is 14.80 cm/s. Medial E' is 9.19 cm/s. Average E' is 12.0 cm/s. IMPRESSION Obstructive sleep apnea syndrome with non compliance BIPAP Witnessed apnea Obesity Body mass index is 31.84 kg/m . Essential HTN Fibromyalgia Anxiety Depression PLAN Discussed diagnosis, its evaluation, treatment and usual course. All questions answered. Educational material distributed. Consideration of CO2 monitoring (if BMI > 35 and serum CO2 > 27: BMI Readings from Last 1 Encounters: 04/26/25 31.84 kg/m Lab Results Component Value Date CO2 12/24/2024 ] Orders Placed This Encounter Procedures PSG Diagnostic Standing Status: Future Expiration Date: 04/26/2026 Follow Up: [facility] Sleep Medicine to read and follow patient. Reason for Study?: G47.33 Obstructive sleep apnea No orders of the defined types were placed in this encounter. A PSG is ordered for possible Inspire device. Disucssed inspire in detail. Patient has shown intolerance to PAP therapy and BMI 31.84. Will repeat PSG to ensure he is a candidate and then have followup with sleep MD. Diet and exercise were discussed in detail Any age-appropriate routine screenings to be completed per PCP Follow up in 6 Months time with sleep MD for possible inspire. If his condition should change priorto this he is encouraged to give our office a call. EDUCATION: Pathophysiology of PONCHO was explained. Health risks associated with untreated PONCHO were discussed (cardiopulmonary, cerebrovascular, and anesthesia/sedative-related). Risks associated with excessive daytime sleepiness, particularly while driving/operating machinery were discussed. The patient was instructed to avoid such activities if feeling sleepy, and to stop the activity if sleepiness occurs (pull up hand at the next safe opportunity if driving). PONCHO treatment options were discussed. CPAP is the most predictably effective treatment. If indicated and prescribed, CPAP must be used every night, all night for full benefits. It may take several weeks until fully accustomed to using the treatment, and before benefits (improved sleep quality and daytime alertness) are noticeable. Potential problems with CPAP were reviewed. Interim measures to reduce obstructive sleep apnea severity were recommended (avoidance of the supine position and elevation of the upper body and during sleep). CC: DO Nori Moraes [facility] Office: [phone] 12:49 PM on 05/03/2025 This note is dictated with the use of M*Modal.Please note that this dictation was completed with computer voice recognition software. Quite often unanticipated grammatical, syntax, homophones, and other interpretive errors are inadvertently transcribed by the computer software. Please disregard these errors. Please excuse any errors that have escaped final proofreading. JANESSA Lewis 05/03/25 1249 documented in this encounterProMedica Health [id number] Instructions* Patient Instructions* JANESSA Lewis - 04/26/2025 9:15 AM EDT If you re looking for general health and wellness resources, please visit [email or web address]. documented in this encounterMercy Health [facility]06-12-2025 Miscellaneous Notes* Telephone Encounter - Pretty Watson CMA - 02/09/2025 8:55 AM EDT Spoke to patient and she was wondering are you ordering the sleep study then since you are notreferring him to pulmonary. * Telephone Encounter - Rodrick Richardson DO - 02/09/2025 8:55 AM EDT I thought we were going to see if he could use his CPAP machine again but I will send him to the sleep specialist in [place] documented in this encounterMercy Health [facility]iff[facility]06-12-2025 Telephone encounter Note* Telephone Encounter - Pretty Watson CMA - 02/09/2025 8:55 AM EDT Spoke to patient and she was wondering are you ordering the sleep study then since you are notreferring him to pulmonary. [facility]06-12-[facility] Telephone encounter Note* Telephone Encounter - Rodrick Richardson DO - 02/09/2025 8:55 AM EDT I thought we were going to see if he could use his CPAP machine again but I will send him to the sleep specialist in [place] [facility]06-10-2025 Miscellaneous Notes* Telephone Encounter - Pretty Watson CMA - 02/07/2025 3:58 PM EDT Did you refer him to pulmonology * Telephone Encounter - Rodrick Richardson DO - 02/07/2025 3:58 PM EDT I did not. I just gave him a prescription for an inhaled corticosteroid to help with his shortness of breath. His pulmonary function tests did not look bad * Telephone Encounter - Pretty Watson CMA - 02/07/2025 3:58 PM EDT LEFT MESSAGE VIA documented in this encounterMercy Health [facility]06-10-2025 Telephone encounter Note* Telephone Encounter - Pretty Watson CMA - 02/07/2025 3:58 PM EDT Did you refer him to pulmonology [facility]06-10-[facility] Telephone encounter Note* Telephone Encounter - Rodrick Richardson DO - 02/07/2025 3:58 PM EDT I did not. I just gave him a prescription for an inhaled corticosteroid to help with his shortness of breath. His pulmonary function tests did not look bad [facility]06-10-20[facility] Telephone encounter Note* Telephone Encounter - Pretty Watson CMA - 02/07/2025 3:58 PM EDT LEFT MESSAGE [facility]SeesawC[facility] [id number] History of Present illness Narrative* Rodrick Bryan Keyla, - 02/06/2025 11:15 AM EDT Subjective Patient ID: Avel Funes is a 49 y.o. male. Avel presents today for recheck of his blood pressure. His is on the phone as well. Still has episodes of near syncope, blurry vision and dizziness. He was getting an echocardiogram done soon. He also is seeing the medical reimbursement manager and is currently wearing an event monitor and is going to have a tilt-table test. He saw the pharmaceutical service representative who just told him to eat more frequent smaller portion meals. He did additional testing and did not reveal any abnormality such as an insulinoma. He still gets short of breath and uses the rescue inhaler as needed. He feels he uses it too much. He does see the collections professional who started him on Arnuity which is [...] past medical history, past social history, past surgicalhistory, problem list, and medication reconciliation was completed including current medication andpost discharge medication. Review of Systems Constitutional: Positive [...] Exam Vitals reviewed. Exam conducted with a gas compressor turbine operator present (Blake Gomes MS 3 and on [...] until it after his cardiac workup to determineif he can do exercise. documented in this encounterMercy Health [facility]iff[facility]06-02-2025 NoteUT Cardiology - [facility] Subjective Avel Funes is a [...] 28. Stress test done this [facility] at [facility], Patient Active Problem List Diagnosis TIMOTHY (acute [...] doses, heart ra (more content not included)... [facility]06-02-2025 History of Present illness Narrative* Luciana Escoto MD - 01/30/2025 1:20 PM EDT Avel Funes is a 49 y.o. male No ref. provider found presents with chief complaint of Diabetes and Follow-up (LAB) HPI: 01/2025 History of Present Illness The patient is here for a follow-up of hypoglycemia. Results Laboratory Studies C-peptide 3.6 (range 1.1-4.4), pro insulin 4.7 (normal less than 7.2), blood sugar 92, liver enzymewithin normal limits, IGF-2 94 (range 33-96.7). 11/2024 History of Present Illness The patient is a 49-year-old male who presents for evaluation of hypoglycemia. He was referred by Dr. Rodrick Richardson for low blood sugar, which has returned to an average level. His glucose log showed readings ranging from 46 to 137. He has no history of diabetes medication use. His kidney functionis currently normal, although he had an episode [...] Daily RT cholecalciferol (Vitamin D-3) 50 MCG (1999 UT) tablet Daily diazePAM (Valium) 10 MG [...] heart rate goes up with oral. prednisone [place] Oil Diarrhea and Nausea And Vomiting Other Reaction(s): Other: See Comments Other reaction(s): Other: See Comments Ibuprofen Other Reaction(s): GI Disturbance, GI Upset, Other (See Comments), Unknown, vomiting Other reaction(s): GI Disturbance Penicillins Hives and Rash Past Medical History: Diagnosis Date Anemia, unspecified Asthma, unspecified asthma severity, unspecified whether complicated, unspecified whether persistent ([facility]) Ear problems Essential hypertension ([facility]) Hypotension due to hypovolemia Obstructive sleep apnea [...] recent change. No heart burn, liver or gallbladderdisease; no rectal bleeding or pain : No urinary pain , frequency or odor. MUSCULOSKELETAL: No muscle pain or cramps; no extremity weakness.No joint pain, stiffness, swellingor limitation of movement NEUROLOGY: No H/O seizures, [...] necessary. Follow up prn documented in this encounterCenterPointe [id number] History of Present illness Narrative* Susan Love MD - 01/17/2025 11:20 AM EDT Images from the original note were not included. Subjective Patient ID: Avel Funes is a 49 y.o. male who presents for Ear Problem (3 week check ears ) Pt states HL resolved. No family history on file. 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 Class 1 obesity due to excess calories with serious comorbidity and body mass index (BMI) of 30.0 to 30.9 in adult 02/09/2024 Contusion of knee 11/11/2017 Depressive disorder ([facility]) 10/02/2017 Dizziness 12/23/2024 Dysfunction of right eustachian tube 12/23/2024 Electrocardiogram abnormal 07/01/2022 Dysphagia 02/25/2019 Epididymitis 07/18/2019 Esophagitis 03/02/2019 Essential hypertension ([facility]) 11/16/2018 Fibromyalgia 08/12/2016 Hypotension due to hypovolemia 11/29/2024 Impingement syndrome of shoulder region 08/07/2016 Knee joint effusion 11/11/2017 Low vitamin D level 02/23/2020 Lower urinary tract symptoms 05/06/2023 Mixed hyperlipidemia ([facility]) 08/28/2020 Non-suppurative otitis media 12/23/2024 Obstructive sleep [...] severity, unspecified whether complicated, unspecified whether persistent ([facility]) Ear problems Right chronic serous otitis media Sinusitis Past Surgical History: Procedure Laterality Date KNEE SURGERY SHOULDER ARTHROSCOPY 3 times TYMPANOSTOMY TUBE PLACEMENT VASECTOMY Allergies Allergen Reactions Prednisone Hives, Other, Shortness of breath, Swelling, Palpitations and Unknown All related Jittery -mainly with IV doses, heart rate goes up with oral. prednisone [place] Oil Diarrhea and Nausea And Vomiting Other [...] year if doing well documented in this encounterCenterPointe [id number] Miscellaneous Notes* Telephone Encounter - Pretty Watson CMA - 01/13/2025 9:08 AM EDT Patient's called and he is still having SOB and chest tightness when exerting himself . Sometimes has SOB while resting. Where do you want to go from here with the patient? * Telephone Encounter - Rodrick Richardson DO - 01/13/2025 9:08 AM EDT He probably should have an EKG and a stress test * Telephone Encounter - Pretty Watson CMA - 01/13/2025 9:08 AM EDT Left message and asked to call back on where he would like to have these done at? documented in this encounterMer[facility]05-16-[facility]25 Telephone encounter Note* Telephone Encounter - Pretty Watson CMA - 01/13/2025 9:08 AM EDT Patient's called and he is still having SOB and chest tightness when exerting himself . Sometimes has SOB while resting. Where do you want to go from here with the patient? [facility] [address] [id number] Telephone encounter Note* Telephone Encounter - Rodrick Richardson DO - 01/13/2025 9:08 AM EDT He probably should have an EKG and a stress test [facility] [id number] Telephone encounter Note* Telephone Encounter - Pretty Watson CMA - 01/13/2025 9:08 AM EDT Left message and asked to call back on where he would like to have these done at? [facility] [id number] History of Present illness Narrative* Susan Love MD - 12/27/2024 11:30 AM EDT Subjective Patient ID: Avel Funes is a 49 y.o. male who presents for Sinusitis Pt reports a 12-18 mo h/o RT otorrhea. Tx with oral abx a couple times. Raymond t- tubes 03/2020. Lost to F/U after 1st post op visit. Pt has been having periods of hypotension and dizziness with vertigo.Lisinopril stopped. Review of Systems All other systems reviewed and are negative. No family history on file. 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 Class 1 obesity due to excess calories with serious comorbidity and body mass index (BMI) of 30.0 to 30.9 in adult 02/09/2024 Contusion of knee 11/11/2017 Depressive disorder ([facility]) 10/02/2017 Dizziness 12/23/2024 Dysfunction of right eustachian tube 12/23/2024 Electrocardiogram abnormal 07/01/2022 Dysphagia 02/25/2019 Epididymitis 07/18/2019 Esophagitis 03/02/2019 Essential hypertension ([facility]) 11/16/2018 Fibromyalgia 08/12/2016 Hypotension due to hypovolemia 11/29/2024 Impingement syndrome of shoulder region 08/07/2016 Knee joint effusion 11/11/2017 Low vitamin D level 02/23/2020 Lower urinary tract symptoms 05/06/2023 Mixed hyperlipidemia ([facility]) 08/28/2020 Non-suppurative otitis media 12/23/2024 Obstructive sleep [...] heart rate goes up with oral. prednisone [place] Diarrhea and Nausea And Vomiting Other [...] need to be removed. documented in this encounterCenterPointe [id number] History of Present illness Narrative* Luciana Escoto MD - 12/23/2024 9:20 AM EDT Avel Funes is a 49 y.o. male [...] history of diabetes medication use. His kidney functionis currently normal, although he had an episode [...] Daily RT cholecalciferol (Vitamin D-3) 50 MCG (1999 UT) tablet Oral, Daily diazePAM (Valium) 10 [...] recent change. No heart burn, liver or gallbladderdisease; no rectal bleeding or pain : No urinary pain , frequency or odor. MUSCULOSKELETAL: No muscle pain or cramps; no extremity weakness.No joint pain, stiffness, swellingor limitation of movement NEUROLOGY: No H/O seizures, [...] Hypoglycemia. He was referred by Dr. Rodrick Blevisn for low blood sugar levels, which have [...] 2 to 3 weeks. documented in this encounterCenterPointe [id number] History of Present illness Narrative* Rodrick Richardson, DO - 12/15/2024 1:00 PM EDT Subjective Patient ID: Avel Funes is a 49 y.o. male. Adan [...] past medical history, past social history, past surgicalhistory, problem list, and medication reconciliation was completed including current medication andpost discharge medication. Review of Systems Objective Physical Exam Vitals reviewed. Exam conducted with a gas compressor turbine operator present (). Constitutional: General: He is not [...] CPAP. Risks discussed such as sudden , [place], CVA, chronic fatigue Anemia, unspecified type - CBC auto differential; Future Check CBC and colonoscopy. May need further evaluation Right chronic serous otitis media - Ambulatory referral to ENT (Non-[facility]); Future Refer back to ENT. Mercer test may be misleading. documented in this encounterMercy Health Tiffin Hospital04-16-2025 Miscellaneous Notes* Telephone Encounter - Pretty Watson CMA - 12/14/2024 10:55 AM EDT Patient called and stated that patient has congestion and is in his chest and is SOB. He has ahistory of Bronchitis. She wanted to know since he is coming in tomorrow [facility] * Telephone Encounter - Rodrick Richardson DO - 12/14/2024 10:55 AM EDT I should see him 1st to see if he needs a chest x-ray. He is getting a lot of radiation with other testing. Not every bronchitis and chest congestion requires an x-ray * Telephone Encounter - Pretty Watson CMA - 12/14/2024 10:55 AM EDT Notified documented in this encounterMercy Health Tiffin Hospital04-16-2025 Telephone encounter Note* Telephone Encounter - Pretty Watson CMA - 12/14/2024 10:55 AM EDT Patient called and stated that patient has congestion and is in his chest and is SOB. He has ahistory of Bronchitis. She wanted to know since he is coming in tomorrow will you send an xray to [facility]? [facility]04-16-[facility] Telephone encounter Note* Telephone Encounter - Rodrick Richardson DO - 12/14/2024 10:55 AM EDT I should see him 1st to see if he needs a chest x-ray. He is getting a lot of radiation with other testing. Not every bronchitis and chest congestion requires an x-ray [employer]04-16-2025 Telephone encounter Note* Telephone Encounter - Pretty Watson CMA - 12/14/2024 10:55 AM EDT Notified [employer]04-03-2025 Miscellaneous Notes* Telephone Encounter - Dayanara Fernandes RN - 12/01/2024 8:14 AM EDT Transition of Care (*required) *Additional Questions/Concerns Requiring PCP Follow-Up: Patient is scheduled for a Hospital Discharge Follow Up appointment on 12/15/24. This is past the TCM window, but per notes, it appears this is the earliest appt available. Please advise: Patient is requesting a refill of Tamsulosin to [facility] please. Patient has not seen ENT in a few years and needs a new referral to return to their office. Patientis requesting a referral to Dr. Susan Love. States he has had ear tubes and recurrent ear infections. Pending lab results: 11/28/24 Blood Cultures x2: NO GROWTH 2 DAYS P This documentation is being used for Transition of Care purposes: Yes Goal: Patient will demonstrate a safe transition from hospital to home. Diagnosis on Discharge: TIMOTHY Hypotension Discharge Specialty: Cardiac and Nephrology *Name of Discharging Facility: [facility] (admitted 11/28/24) Date of Facility Discharge: 11/29/24 Date of Interactive Contact and Name of Guest Relations Receptionist: 12/01/24 at 9:48am Unable to reach, voice [...] he thought that was throwing his equilibrium off.He is on antibiotics which he feels is [...] episodes per month of low blood sugar inthe night. He often feels better after eating something. Urinating/moving bowels without difficulty. Ambulating without difficulty. Education Provided by ACN to Support Self-Management, Independent Living and ADLs: Reviewed discharge instructions per AVS. Reviewed signs and symptoms to monitor for and when to call provider/go to ED. Communication with Home Health Agencies and Other Services Utilized/Needed by the Patient: N/A. * Telephone Encounter - Rodrick Richardson DO - 12/01/2024 8:14 AM EDT I can probably see him ThursdayDecember 07 at 1:00 p.m. * Telephone Encounter - Pretty Watson CMA - 12/01/2024 8:14 AM EDT Patient never called back documented in this encounterMercer County Community HospitalBoyibang Bronson [facility] Haven [id number] Telephone encounter Note* Telephone Encounter - Dayanara Fernandes RN - 12/01/2024 8:14 AM EDT Transition of Care (*required) *Additional Questions/Concerns Requiring PCP Follow-Up: Patient is scheduled for a Hospital Discharge Follow Up appointment on 12/15/24. This is past the TCM window, but per notes, it appears this is the earliest appt available. Please advise: Patient is requesting a refill of Tamsulosin to [facility] please. Patient has not seen ENT in a few years and needs a new referral to return to their office. Patientis requesting a referral to Dr. Susan Love. States he has had ear tubes and recurrent ear infections. Pending lab results: 11/28/24 Blood Cultures x2: NO GROWTH 2 DAYS P This documentation is being used for Transition of Care purposes: Yes Goal: Patient will demonstrate a safe transition from hospital to home. Diagnosis on Discharge: TIMOTHY Hypotension Discharge Specialty: Cardiac and Nephrology *Name of Discharging Facility: [facility] (admitted 11/28/24) Date of Facility Discharge: 11/29/24 Date of Interactive Contact and Name of Guest Relations Receptionist: 12/01/24 at 9:48am Unable to reach, voice message left. 12/01/24 at 2:44pm Spoke with patient. *Medication Review Completed: Yes START taking: cefDINIR (OMNICEF) meclizine (ANTIVERT) STOP taking: lisinopril-hydroCHLOROthiazide 20-12.5 mg per tablet (PRINZIDE,ZESTORETIC) Medication Reconciliation Questions/Concerns: See above re: refill. *Follow Up Appointments with Providers: Primary: Rodrick Bryan SelmareginaldDO 12/15/24 at 1:00pm Specialty: Specialty: Specialty: Review [...] he thought that was throwing his equilibrium off.He is on antibiotics which he feels is [...] episodes per month of low blood sugar inthe night. He often feels better after eating something. Urinating/moving bowels without difficulty. Ambulating without difficulty. Education Provided by ACN to Support Self-Management, Independent Living and ADLs: Reviewed discharge instructions per AVS. Reviewed signs and symptoms to monitor for and when to call provider/go to ED. Communication with Home Health Agencies and Other Services Utilized/Needed by the Patient: N/A. T [facility] [id number] Telephone encounter Note* Telephone Encounter - Rodrick RichardsonDO - 12/01/2024 8:14 AM EDT I can probably see him ThursdayDecember 07 at 1:00 p.m. [facility]04-03-2025 Telephone encounter Note* Telephone Encounter - Pretty Watson CMA - 12/01/2024 8:14 AM EDT Patient never called back [facility]04-02-2025 Miscellaneous Notes* Telephone Encounter - Pretty Watson CMA - 11/30/2024 1:55 PM EDT Patient called and patient was seen at the er in [place] but his BP is still running 82/57, 98/68, 106/73. Do you think he needs to see you before apt on 12/15/24 and if so where would you like him scheduled at? * Telephone Encounter - Rodrick Richardson DO - 11/30/2024 1:55 PM EDT Looks like he was dehydrated. He should drink plenty of fluids and try Gatorade. Not really much available before then as I am going out of town next week * Telephone Encounter - Pretty Watson CMA - 11/30/2024 1:55 PM EDT Spoke to Carolyne and they will continue with keeping him hydrated. documented in this encounterMercy Health Tiffin Hospital04-02-2025 Telephone encounter Note* Telephone Encounter - Pretty Watson CMA - 11/30/2024 1:55 PM EDT Patient called and patient was seen at the er in [place] but his BP is still running 82/57, 98/68, 106/73. Do you think he needs to see you before apt on 12/15/24 and if so where would you like him scheduled at? [facility]04-02-[facility] Telephone encounter Note* Telephone Encounter - Rodrick Richardson DO - 11/30/2024 1:55 PM EDT Looks like he was dehydrated. He should drink plenty of fluids and try Gatorade. Not really much available before then as I am going out of town next week [facility]04-02-2025 Telephone encounter Note* Telephone Encounter - Pretty Watson CMA - 11/30/2024 1:55 PM EDT Spoke to Carolyne and they will continue with keeping him hydrated. [facility]01-22-[facility]25 Miscellaneous Notes* Telephone Encounter - Sayra Torrez - 09/21/2024 10:09 AM EST He is due for a recheck possibly a wellness too * Telephone Encounter - Sayra Torrez - 09/21/2024 10:09 AM EST Sent mychart msg * Telephone Encounter - Sayra Torrez - 09/21/2024 10:09 AM EST 3rd reach out. Another message in chart documented in this encounterMercy Health Tiffin Hospital01-22-2025 Telephone encounter Note* Telephone Encounter - Sayra Torrez - 09/21/2024 10:09 AM EST He is due for a recheck possibly a wellness too [facility]01-22-[facility] Telephone encounter Note* Telephone Encounter - Sayrakeven Torrez - 09/21/2024 10:09 AM EST Sent leeanne msg [facility]01-22-2025 Telephone encounter Note* Telephone Encounter - [facility] Lore - 09/21/2024 10:09 AM EST 3rd reach out. Another message in chart [facility]01-22-2025 Miscellaneous Notes* Telephone Encounter - Rodrick Richardson DO - 09/21/2024 12:31 AM EST Rx sent in. He is due for a recheck possibly a wellness too documented in this encounterMercy Health Tiffin Hospital01-22-2025 Telephone encounter Note* Telephone Encounter - Rodrick Richardson DO - 09/21/2024 12:31 AM EST Rx sent in. He is due for a recheck possibly a wellness too [facility]01-10-2025 Miscellaneous Notes* Telephone Encounter - Sayra Torrez - 09/09/2024 9:45 AM EST is due for Medicare wellness anytime * Telephone Encounter - aSyra Torrez - 09/09/2024 9:45 AM EST Sent mychart msg * Telephone Encounter - [facility] - 09/09/2024 9:45 AM EST LM on VM * [facility] 9:45 AM EST 3rd ccontact documented in this encounterMercy Health Tiffin Hospital01-10-2025 Telephone encounter Note* Telephone Encounter - [facility] - 09/09/2024 9:45 AM EST is due for Medicare wellness anytime [facility]01-10-2025 Telephone encounter Note* Telephone Encounter - [facility] - 09/09/2024 9:45 AM EST Sent mychart msg [facility]01-10-2025 Telephone encounter Note* Telephone Encounter - [facility] - 09/09/2024 9:45 AM EST LM on VM [facility]01-10-2025 Telephone encounter Note* [facility] 09/09/[facility] 9:45 AM EST 3rd ccontact [facility]01-10-2025 Miscellaneous Notes* Telephone Encounter - Rodrick Richardson DO - 09/09/2024 12:41 AM EST Rx sent in. He is due for Medicare wellness anytime documented in this encounterMount Ascutney HospitalAeria Games & Entertainment [id number] Telephone encounter Note* Telephone Encounter - Rodrick Richardson DO - 09/09/2024 12:41 AM EST Rx sent in. He is due for Medicare wellness anytime [facility] CenterBeroomers09-17-2024 Instructions* Patient Instructions* Dayanara Broussard RN - 05/17/2024 9:00 AM EDT Preoperative Education Checklist- General Surgery date: 05/31/24 Surgery time: 10a Arrival time: 8a 1. Bring a photo ID and your insurance card with you the day of surgery. You will check in at the main lobby of the [facility]- registration desk is straight ahead as soon as you walk in. Tell them you are here for surgery. 2. If you have a Living Will/Durable Power of Appeals Analyst for Health Care that is not on [...] after you have bathed. 5. NO nail martiniquais/acrylic on at least one finger. If you are having a hand, wrist or foot surgery then all nail martiniquais and artificial/acrylic nails must be removed from [...] least 8 hours and marijuana for 24 hoursprior to arrival for your surgery. 16. If [...] please call the Preadmission Testing office at [phone], Mon.-Fri. 7 a.m.-3 p.m. Leave a voicemail [...] mg per tablet Stop taking 0 days priorto procedure mirtazapine (REMERON) 15 mg tablet Stop [...] days prior to procedure documented in this encounterMercy Health Tiffin Hospital07-25-2024 History of Present illness Narrative* Rodrick Richardson, - 03/24/2024 11:00 AM EDT Subjective Patient ID: Avel Funes is a 48 y.o. male. He has been having hot flashes off and on for a couple years. It happens about once a month. Lasts for about 45 minutes. He will sometimes eat candy and it will go away and other times it resolves onits own. He was told by his dad [...] past medical history, past social history, past surgicalhistory, problem list, and medication reconciliation was completed including current medication andpost discharge medication. Review of Systems Constitutional: Negative. [...] is bothered by it. documented in this encounterMercy Health Tiffin Hospital07-09-2024 Miscellaneous Notes* Telephone Encounter - Suzanne Nguyen MD - 03/08/2024 3:00 PM EDT Please schedule for cysto with possible urethral dilation, mac, [place] Diagnosis lower urinary tract symptoms documented in this encounterMercy Health Tiffin Hospital07-09-2024 Telephone encounter Note* Telephone Encounter - Suzanne Nguyen MD - 03/08/2024 3:00 PM EDT Please schedule for cysto with possible urethral dilation, mac, [place] Diagnosis lower urinary tract symptoms [facility]07-09-20[facility] History of Present illness Narrative* Suzanne Nguyen MD - 03/08/2024 2:45 PM EDT Images from the original note were not included. [address] [place] [address] [facility] [id number] Patient: Avel Glover Efraín Date of : 1975 Encounter Date: 03/08/2024 [...] by history with hitting his 's pubic boneduring intercourse. He had pain with that. He [...] , EXTPOCUBAC , EXTPOCUTREP , EXTPOCUPH , EXTPOCUL EE in the last 72 hours. Last BUN [...] past medical history, past social history, past surgicalhistory and problem list. Past Medical History: Diagnosis Date Anxiety Anxiety disorder Cervicalgia Fibromyalgia GERD (gastroesophageal reflux disease) Hypertension Impingement syndrome of right shoulder region PONCHO (obstructive sleep apnea) PONCHO (obstructive sleep apnea) Palpitation RAD (reactive airway disease) Past Surgical History: Procedure Laterality Date CERVICAL VERTEBRAE EXCISION COLONOSCOPY N/A 09/28/2019 Performed by Freddie Bender DO at [facility] EGD N/A 03/02/2019 Performed by Freddie Bender DO at [facility] KNEE ARTHROSCOPY PALATE / UVULA BIOPSY [...] or hospitalization) Allergies: Ibuprofen, Penicillins, Prednisone, and [place] Tobacco History: Social History Tobacco Use Smoking [...] you for your understanding. documented in this encounterMercy Health Tiffin Hospital06-11-2024 History of Present illness Narrative* Rodrick Richardson, DO - 02/09/2024 2:15 PM EDT Subjective Patient ID: Avel Funes is a [...] past medical history, past social history, past surgicalhistory, problem list, and medication reconciliation was completed including current medication andpost discharge medication. Review of Systems Constitutional: Negative. [...] and body mass index (BMI) of 30.0 to30.9 in adult He is barely obese with [...] total) by mouth nightly. documented in this encounterMercy Health Tiffin Hospital05-29-2024 Miscellaneous Notes* Telephone Encounter - Pretty Watson CMA - 01/27/2024 11:48 AM EDT Patient needs a renewal for handicap placard * Telephone Encounter - Rodrick Richardson DO - 01/27/2024 11:48 AM EDT I do not see where he had handicap parking placard in the past. Did you give him 1? * Telephone Encounter - Pretty Watson CMA - 01/27/2024 11:48 AM EDT Handicap Placard made today documented in this encounterMercy Health Tiffin Hospital05-29-2024 Telephone encounter Note* Telephone Encounter - Pretty Watson CMA - 01/27/2024 11:48 AM EDT Patient needs a renewal for handicap placard [facility]05-29-2024 Telephone encounter Note* Telephone Encounter - Rodrick Richardson DO - 01/27/2024 11:48 AM EDT I do not see where he had handicap parking placard in the past. Did you give him 1? [facility]-29-[facility] Telephone encounter Note* Telephone Encounter - Pretty Watson CMA - 01/27/2024 11:48 AM EDT Handicap Placard made today [facility]05-03-2024 Miscellaneous Notes* Telephone Encounter - Imani Bryan CMA - 01/01/2024 3:22 PM EDT Care Coordination Outreach performed to coordinate overdue appointments, testing, and/or follow-up care: Yes Audit/Outreach Date: January 01, 2024 Reason: Chronic Condition Appt Method: Telephone and MyChart Outreach Attempt: Second Outcome: Left Message and letter sent Next PCP Appointment: N/A Tests/Referrals Pended: N/A Resources/Education Provided: Additional Comments: Unable to reach patient by telephone to schedule appointment. Letter sent. documented in this encounterMercy Health Tiffin Hospital05-03-2024 Telephone encounter Note* Telephone Encounter - Imani Byran CMA - 01/01/2024 3:22 PM EDT Care Coordination Outreach performed to coordinate overdue appointments, testing, and/or follow-up care: Yes Audit/Outreach Date: January 01, 2024 Reason: Chronic Condition Appt Method: Telephone and MyChart Outreach Attempt: Second Outcome: Left Message and letter sent Next PCP Appointment: N/A Tests/Referrals Pended: N/A Resources/Education Provided: Additional Comments: Unable to reach patient by telephone to schedule appointment. Letter sent. [facility]04-19-2024 Miscellaneous Notes* Telephone Encounter - Rodrick Richardson DO - 12/18/2023 1:34 PM EDT Rx sent in. Patient is due for recheck of depression. He usually sees Estela documented in this encounterMercy Health Tiffin Hospital04-19-2024 Telephone encounter Note* Telephone Encounter - Rodrick Richardson DO - 12/18/2023 1:34 PM EDT Rx sent in. Patient is due for recheck of depression. He usually sees Estela [facility]02-01-[facility] History of Present illness Narrative* ROSEY Purdy - 10/01/2023 2:43 PM EST The OARRS/MAPPS database was reviewed today and found to be appropriate. No indication of medication diversion, or non compliance. ROSEY Purdy 10/01/23 1443 documented in this encounterMercy Health Tiffin Hospital04-06-2023 NoteCONSULTATION CONSULTATION DATE: 12/04/2022 TO: Dr. Carl Espinoza [...] our patients to inform us about any rjbw-wdt-temhism medications or herbal remedies/nutritional supplements/alternative remedies. 2. [...] and treatment options with their primary care provider.The [facility] [id number] NotePROCEDURE: XR KNEE RT 4V or > HISTORY: Tear of medial meniscus of knee ; chronic right knee pain COMPARISON: None. FINDINGS: BONES:Elevated patella. No fracture, dislocation, bone lesion. No significant joint space narrowing. SOFT TISSUES:No visible soft tissue swelling. EFFUSION:None visible. OTHER: Negative. IMPRESSION: 1. Patella juan. Otherwise unremarkable right knee. 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 [facility] codes for diagnosis M50.221, M50.222. PLAN: We will increase his Percocet for the winter months to 5/325 q.i.d. We will preauthorize for bilateral cervical trigger point injections to mitigate his cervical spams. Upon approval, the patient will be called to the office to receive those injections. The patient does agree with the plan of care.[facility] [id number] NoteCONSULTATION CONSULTATION DATE: 04/03/2022 HISTORY OF PRESENT ILLNESS: This is a 46-year-old male who is being seen at our pain clinic for chronic neck pain and is a [facility] case. Patient did sustain a neck injury in 2014 due to a lifting incident. He was last seen on 12/26/2021 which, at that time, we were attempting to preauthorize for cervical medial branch blocks and a subsequent rhizotomy. That was declined by [facility] regardless of the pathology and the [...] upper extremities. Blunted bilateral brachioradialis reflexes. IMPRESSION: [facility] codes M50.221, M50.222. PLAN: We will add diclofenac 75 mg b.i.d. to help control his inflammatory pain. Lyrica will be increased to 150 mg b.i.d. No changes in his Percocet dose at this time. Heat application was encouraged as well as adding magnesium and a multivitamin. At this time, we will attempt to medically manage him, pending any further [facility] approval to move forward with procedural interventions. Patient is in agreement with this plan. 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 [facility] Diagnosis Insomnia, unspecified [facility] Diagnosis Hyperlipidemia, unspecified [facility]* Diagnosis Essential hypertension- Primary Unspecified essential hypertension Mixed hyperlipidemia Mass of upper outer quadrant of left breast Depressive disorder Depressive disorder, not elsewhere classified Low vitamin D level Class 1 obesity due to excess calories with serious comorbidity and body mass index (BMI) of 30.0 to 30.9 in adult Primary osteoarthritis of right knee [facility] Diagnosis Other specified depressive episodes Urticaria, unspecified [facility]* Diagnosis Gastro-esophageal reflux disease without esophagitis [facility]* Diagnosis Insomnia, unspecified [facility]* Diagnosis Mass of upper outer quadrant of left breast- Primary [facility]* Diagnosis Lower urinary tract symptoms- Primary Other symptoms involving urinary system Peyronie's disease [facility]* Diagnosis Urticaria, unspecified Other specified depressive episodes [facility]* Diagnosis Gastro-esophageal reflux disease without esophagitis [facility]* Diagnosis Essential (primary) hypertension Unspecified essential hypertension [facility] Diagnosis Hot flashes- Primary Hyperglycemia Other abnormal glucose Class 1 obesity due to excess calories with serious comorbidity and body mass index (BMI) of 30.0 to 30.9 in adult Mixed hyperlipidemia Right carpal tunnel syndrome Carpal tunnel syndrome [facility] Diagnosis Lower urinary tract symptoms- Primary Other symptoms involving urinary system Preop examination- Primary Unspecified pre-operative examination Hypertension, unspecified type PONCHO (obstructive sleep apnea) Obstructive sleep apnea (adult) (pediatric) Preop examination Unspecified pre-operative examination Hypertension, unspecified type PONCHO (obstructive sleep apnea) Obstructive sleep apnea (adult) (pediatric) Lower urinary tract symptoms Other symptoms involving urinary system documented [facility]* Diagnosis Gastro-esophageal reflux disease without esophagitis Other specified depressive episodes [facility] Diagnosis Hypotension due to hypovolemia- Primary Asthma, unspecified asthma severity, unspecified whether complicated, unspecified whether persistent Polyp of sigmoid colon, unspecified type Essential hypertension Unspecified essential hypertension Obstructive sleep apnea syndrome Obstructive sleep apnea (adult) (pediatric) Anemia, unspecified type Right chronic serous otitis media Simple or unspecified chronic serous otitis media documented in [facility]* Diagnosis Insomnia, unspecified documented [facility]* Diagnosis Hypoglycemia- Primary Hypoglycemia, unspecified Impaired fasting glucose documented in this encounter [facility]* Diagnosis Hypoglycemia- Primary Hypoglycemia, unspecified documented in this encounter [facility]* Diagnosis Hypoglycemia- Primary Hypoglycemia, unspecified Screening for diabetes mellitus documented [facility] this encounter [facility]* Diagnosis ETD (Eustachian tube dysfunction), bilateral- Primary Chronic myringitis of right ear Screening for diabetes mellitus documented in this encounter [facility]* Diagnosis Chronic myringitis of right ear- Primary Dysfunction of right eustachian tube Foreign body of right ear, initial encounter Hypoglycemia Hypoglycemia, unspecified documented in this encounter [facility]* Diagnosis Gastro-esophageal reflux disease without esophagitis Other specified depressive episodes Asthma, unspecified asthma severity, unspecified whether complicated, unspecified whether persistent Hyperlipidemia, unspecified documented in this encounter [facility]* Diagnosis Hypoglycemia Hypoglycemia, unspecified documented in this encounter [facility]* Diagnosis Essential hypertension- Primary Unspecified [...] 31.9 in adult documented in this encounter [facility]* Diagnosis PONCHO (obstructive sleep apnea)- Primary Obstructive sleep apnea (adult) (pediatric) [facility] Diagnosis Urticaria, unspecified [facility]* Diagnosis PONCHO (obstructive sleep apnea)- Primary Obstructive sleep apnea (adult) (pediatric) Noncompliance with CPAP treatment BMI 31.0-31.9,adult Obesity (BMI 30-39.9) [facility]* Diagnosis Gastro-esophageal reflux disease without esophagitis Other specified depressive episodes Asthma, unspecified asthma severity, unspecified whether complicated, unspecified whether persistent Insomnia, unspecified [facility]* Diagnosis Medicare annual wellness visit, subsequent- Primary Class 1 obesity due to excess calories with serious comorbidity and body mass index (BMI) of 31.0 to 31.9 in adult Screening for depression Mixed hyperlipidemia Paresthesia Disturbance of skin sensation Dizziness Dizziness and giddiness Essential hypertension Unspecified essential hypertension [facility]* Diagnosis Onset Date Resolution Status Admit Date Dental infection acuteOctober 2024 5:09pmJaw painacuteOctober 2024 5:09pm [facility] Work Phone: Evaluation note* Diagnosis Tinea pedis of right foot- Primary documented in this encounter [facility]* Diagnosis PONCHO (obstructive sleep apnea) Obstructive sleep apnea (adult) (pediatric) documented [facility] SystemInstructionsNot [...] SystemInstructionsNot on filedocumented in this encounter [facility] SystemReason for referral (narrative)No reason for referral information availableGerman Hospital Work Phone: Reason for visit Narrative* Misc (Routine) - Closed SpecialtyDiagnoses / ProceduresReferred By ContactReferred To Contact Diagnoses PONCHO (obstructive sleep apnea) Procedures PSG Diagnostic Nori Mccoy APRN-HOT ROLL LAMINATOR [address] [facility], [facility] [address] [place] [address] Phone: tel: fax: Referral IDStatusReasonStart DateExpiration DateVisits RequestedVisits [id number]/27/20258/ [facility] Summary Purpose Family History Relationship Condition Age at Onset Recorded Date/T astrid father Malignant neoplasm Unknown Advance Directives Advance Directive Response Recorded Date/ Time Advance Directives No June 06, 2024 5:03pm Date ActivatedDate InactivatedComments11/28/2024 8:16 PM11/29/2024 1:49 PMDate ActivatedDate InactivatedComments11/28/2024 8:16 PM11/29/2024 1:49 PM Chief Complaint and Reason for Visit Chief Complaint Admit Date Left scapular pain June 22, 2025 5 :09pm Reason for Visit Admit Date Left shoulder pain June 22, 2025 5 :09pm Chief Complaint Tooth and jaw pain Reason for Visit Admit Date Dental infection June 22, 2025 5 :09pm Jaw pain June 22, 2025 5 :09pm Reason for Referral SpecialtyDiagnoses / ProceduresReferred By ContactReferred To ContactRadiology Diagnoses Cervical spondylosis with radiculopathy 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 Procedures CT CERVICAL SPINE WO CONTRAST Yon Lira, [address] [facility] [address] [place] [id number] Referral IDStatusReasonStart DateExpiration DateVisits RequestedVisits [id number]/30/202412/16/[id number] / Procedures Referred By ContactReferred To Contact Diagnoses Preop examination Hypertension, unspecified type PONCHO (obstructive sleep apnea) Procedures ECG 12 lead Delta Ren MD [address] [place] [id number] Referral IDStatusReasonStart DateExpiration DateVisits RequestedVisits [id number] Review Additional Source Comments (unrecognized sect ion and content) No Status Records FoundNo Status Records FoundNo Status Records FoundNo Status Records FoundNo Status Records FoundNo Status Records FoundNo Status Records FoundNo Status Records FoundNo Status Records FoundNo Status Records FoundNo Status Records FoundNo Status Records FoundNo Status Records FoundNo Status Records Found INFORMATION SOURCE (unrecogn ized section and content) DATE CREATED AUTHOR 04/06/2019 [facility] DATE CREATED AUTHOR AUTHOR'S ORGANIZ ATION 11/09/2021 [facility] DATE CREATED AUTHOR AUTHOR'S ORGANIZ ATION 12/27/2021 [facility] DATE CREATED AUTHOR AUTHOR'S ORGANIZ ATION 01/14/[address] [facility] DATE CREATED AUTHOR AUTHOR'S ORGANIZ ATION 10/01/2023 [facility] DATE CREATED AUTHOR AUTHOR'S ORGANIZ ATION 06/15/2024 [facility] DATE CREATED AUTHOR AUTHOR'S ORGANIZ ATION 08/17/2024 [facility] DATE CREATED AUTHOR AUTHOR'S ORGANIZ ATION 09/19/2024 [facility] DATE CREATED AUTHOR AUTHOR'S ORGANIZ ATION 12/18/2024 [facility] DATE CREATED AUTHOR AUTHOR'S ORGANIZ ATION 01/31/2025 [facility] DATE CREATED AUTHOR AUTHOR'S ORGANIZ ATION 02/25/2025 [facility] DATE CREATED AUTHOR AUTHOR'S ORGANIZ ATION 06/16/2025 [facility] DATE CREATED AUTHOR AUTHOR'S ORGANIZ ATION 06/30/2025 [facility] DATE CREATED AUTHOR AUTHOR'S ORGANIZ ATION 07/01/2025 [facility] Care Teams (unrecognized sec tion and content) Team Status: Active Member Role Status Dates Rodrick Richardson DO Primary Care Provider Active Team Status: Inactive Member Role Status Dates Em Appiah APRN Attending Provider Active Start: June 06, 2024 End: June 06ennZenon Rich Care ProviderActiveStart: June 06, 2024 End: June 06, 2024Team MemberRelationshipSpecialtyStart DateEnd Date Rodrick Richardson DO [address], [place] [address] PCP - GeneralFamily Medicine10/16/16Team MemberRelationshipSpecialtyStart DateEnd Date Rodrick Richardson DO PCP - GeneralFamily Qiqxbvgl10/18/19Team MemberRelationshipSpecialtyStart Date End Date Rodrick Richardson DO [address] [place] [address] PCP - GeneralFamily Medicine10/16/16Team MemberRelationshipSpecialtyStart DateEnd Date Rodrick Richardson DO [address] [place] [address] PCP - GeneralFamily Medicine10/16/16Team MemberRelationshipSpecialtyStart DateEnd Date Rodrick Richardson DO [address] [place] [address] PCP - GeneralFamily Medicine2/16/17Team MemberRelationshipSpecialtyStart DateEnd Date Keyla Rodrick Bryan DO [address], [place] [address] PCP - GeneralFamily Medicine2/16/17Team MemberRelationshipSpecialtyStart DateEnd Date Rodrick Richardson DO [address], [place] [address] PCP - GeneralFamily Medicine2/17Team MemberRelationshipSpecialtyStart DateEnd Date Rodrick Richardson DO [address], [place] [address] PCP - Generalmily Medicine2/17Team MemberRelationshipSpecialtyStart DateEnd Date Rodrick Richardson DO [address], [place] [address] PCP - GeneralFamily Medicine217Team MemberRelationshipSpecialtyStart DateEnd Date Rodrick Richardson DO [address], [place] [address] PCP - GeneralFamily Medicine2//17Team MemberRelationshipSpecialtyStart DateEnd Date Rodrick Richardson DO [address], [place] [address] PCP - GeneralFamily Medicine2/16/17Team MemberRelationshipSpecialtyStart DateEnd Date Rodrick Richardson DO [address], [place] [address] PCP - Generalmily Medicine10/16/16Team MemberRelationshipSpecialtyStart DateEnd Date Rodrick Richardson DO [address], [place] [address] PCP - Generalmily Medicine10/16/16Team MemberRelationshipSpecialtyStart DateEnd Date Rodrick Richardson DO [address], [place] [address] [facility]10/16/16Team MemberRelationshipSpecialtyStart DateEnd Date Rodrick Richardson DO [address], [place] [address] [facility]10/16/16Team MemberRelationshipSpecialtyStart DateEnd Date Rodrick Richardson DO [address], [place] [address] PCP - Generalmily Medicine10/16/16Team MemberRelationshipSpecialtyStart DateEnd Date Rodrick Richardson DO [address], [place] [address] PCP - Generalmily Medicine217Team MemberRelationshipSpecialtyStart DateEnd Date Rodrick Richardson DO [address], [place] [address] PCP - Generalmily Medicine10/16/16Team MemberRelationshipSpecialtyStart DateEnd Date Rodrick Richardson MD [address], [place] [address] PCP - Generalmi Medicine12/27/24Team MemberRelationshipSpecialtyStart DateEnd Date Rodrick Richardson MD [address], [place] [address] PCP - [facility] Medicine12/27/24Team MemberRelationshipSpecialtyStart DateEnd Date Rodrick Richardson MD [address], [place] [address] [facility]12/27/24Team MemberRelationshipSpecialtyStart DateEnd Date Rodrick Richardson DO [address], [place] [address] PCP - Generalmily Medicine10/16/16Team MemberRelationshipSpecialtyStart DateEnd Date Rodrick Richardson MD [address], [place] [address] [facility]12/27/24Team MemberRelationshipSpecialtyStart DateEnd Date Rodrick Richardson MD [address], [place] [address] PCP - Generalmily Medicine12/27/24Team MemberRelationshipSpecialtyStart DateEnd Date Keyla Rodrick IrvinDO [address], [place] [address] [facility]10/16/16Team MemberRelationshipSpecialtyStart DateEnd Date Keyla Rodrick Bryan DO [address], [place] [address] PCP - [facility] Medicine10/16/16Team MemberRelationshipSpecialtyStart DateEnd Date Rodrick Richardson DO [address], [place] [address] PCP - [facility] Medicine10/16/16Team MemberRelationshipSpecialtyStart DateEnd Date Rodrick Richardson DO [address], [place] [address] PCP - [facility] Medicine10/16/16Team MemberRelationshipSpecialtyStart DateEnd Date Rodrick Richardson DO [address], [place] [address] PCP - [facility] Medicine10/16/16 Team Status: Active Member Role/Relationship Status Dates Rodrick Richardson DO Primary Care Provider Active Team Status: Inactive Member Role/Relationship Status Dates Rodrick Richardson DO Primary Care Provider Active Start: June 22, 2025 End: June 22, 2025Mihai Jones ProviderActiveStart: June 22, 2025 End: June 22, 2025 Team Status: Active Member Role/Relationship Status Dates Rodrick Richardson DO Primary Care Provider Active Start: June 22, 2025 Mihai Jones ProviderActiveStart: June 22, 2025 Team Status: Inactive Member Role/Relationship Status Dates Rodrick Richardson DO Primary Care Provider Active Start: June 22, 2025 End: June 22, 2025Mihai Jones ProviderActiveStart: June 22, 2025 End: June 22, 2025Team MemberRelationshipSpecialtyStart DateEnd Date Rodrick Richardson DO [address] [facility], [place] [address] PCP - GeneralFamily Medicine10/16/16 Goals (unrecognized section and content) Goals may [...] this encounterNot on filedocumented as of this encounterGoals may be documented in an alternate sectionGoals may be documented in an alternate section Reason for Visit (unrecogniz ed section and content) ReasonCommentsMed RefillSpecialtyDiagnoses / ProceduresReferred By Contact Referred To ContactRadiology Diagnoses Cervical spondylosis with radiculopathy 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 Procedures CT CERVICAL SPINE WO CONTRAST Yon Lira, [address] [facility] [address] [place] [address] Referral IDStatusReasonStart DateExpiration DateVisits RequestedVisits [id number]/30/202412/[id number] DateComments Appointment Due4ReasonOnset DateCommentsMed Rutjrj6810/10/2024Reason CommentsHyperlipidemiaHypertensionReasonCommentsFollow-upfollow up / prev seen fumoReasonOnset DateCommentsMed [id number] Flashes referral / right arm numbnessReasonOnset DateCommentsTransition Of Care 12/01/2024ReasonCommentsFollow-upApril 1 follow up PMH, right ear infection. Drainage.ReasonCommentsDiabetesReasonCommentsSinusitisSpecialtyDiagnoses / ProceduresReferred By ContactReferred To ContactOtolaryngology Diagnoses Right chronic serous otitis media Procedures 87 (Epic.EAP.ID) - Ambulatory referral to ENT (Non[facility]) Rodrick Richardson MD [address] [facility], [place] [address] Phone: tel: fax: Susan Love MD [address] [place] [address] Phone: tel: fax: Referral IDStatusReasonStart DateExpiration DateVisits RequestedVisits [id number]/17/20254/[id number] Problem3 week check earsReasonCommentsDiabetesFollow-upLABReasonCommentsbp,Breathing problems, dizziness at times. FatigueReasonCommentsNew PatientPS04/16/2015No PAP therapyNo Oral AppliancesSleep ApneaSpecialtyDiagnoses / ProceduresReferred By ContactReferred To ContactPulmonary Disease / Pulmonary Medicine Diagnoses PONCHO (obstructive sleep apnea) Rodrick Richardson, DO [address], [place] [address] Phone: tel: fax: Nori Mccoy, HAND COKE DRAWER-HOT ROLL LAMINATOR [address] [place] [address] Phone: tel: fax: Referral IDStatusReasonStart DateExpiration DateVisits RequestedVisits [id number] Specialty Services Required /[id number] DateCommentsSleep Lab05/03/2025PSGReasonComments Med Change RequestReasonCommentsAnnual ExammawReasonCommentsRash on rt foot/ possible athletes foot FOR RECORDS PERTAINING TO PATIENTS WHO ARE [...] BE BASED ON THE PRIMARY CLINICAL RECORDS. [facility] Payoff [facility]. provides no warranty or guarantee of the accuracy or completeness of information in this document.
--- NOTE | 2025-07-05 13:46 | PM.CN ---
Consult Note: HPI Data of Consult Patient: known to practice within the last 3 years Requesting Physician: Anaid Phelps NP Primary Care Provider: GOLDEN RICHARDSON Consult Narrative Reason for consult: left shoulder pain Narrative: Lonnie Kenny a pleasant 49 year old male presents for evaluation of chronic moderate to severe left shoulder pain worsening over the last 3-4 years. pt has longstanding left shoulder pain with hx of prior bankhart surgery in 1997 and arthroscope in 2010. pt recently completed left shoulder xray which shows OA and spurring in AC and glenohumeral joint. Pain today 2/10, notes flare ups with 10/10 rafa very 2-3 weeks. notes intermittent pain to left upper arm. cc:: CC: Anaid Phelps NP Review of Systems ROS Musculoskeletal Reports: joint pain PFSH PFSH Medical History (Updated 07/05/25 @ 13:50 by Anaid Phelps NP) Osteoarthritis ?M19.90 - Unspecified osteoarthritis, unspecified site (ICD-10) Carpal tunnel syndrome ?G56.00 - Carpal tunnel syndrome, unspecified upper limb (ICD-10) Acid reflux ?K21.9 - Gastro-esophageal reflux disease without esophagitis (ICD-10) Enlarged prostate ?N40.0 - Benign prostatic hyperplasia without lower urinary tract symptoms (ICD-10) Asthma ?J45.909 - Unspecified asthma, uncomplicated (ICD-10) HTN (hypertension) ?I10 - Essential (primary) hypertension (ICD-10) Surgical History History of vasectomy ?Z98.52 - Vasectomy status (ICD-10) History of myringotomy ?Z98.890 - Other specified postprocedural states (ICD-10) History of shoulder surgery ?Z98.890 - Other specified postprocedural states (ICD-10) Hx of tonsillectomy ?Z90.89 - Acquired absence of other organs (ICD-10) History of knee surgery ?Z98.890 - Other specified postprocedural states (ICD-10) History of neck surgery ?Z98.890 - Other specified postprocedural states (ICD-10) Meds Home Medications and Allergies Home Medications ?Medication ?Instructions ?Recorded ?Confirmed ?Type atorvastatin 10 mg tablet 10 mg PO DAILY 05/13/23 05/23/24 History cetirizine 10 mg tablet 10 mg PO DAILY PRN allergy symptoms 05/13/23 05/23/24 History cholecalciferol (vitamin D3) 25 25 mcg PO DAILY 05/13/23 05/23/24 History mcg (1,000 unit) capsule (Vitamin D3) docusate sodium 100 mg capsule 100 mg PO DAILY 05/13/23 05/23/24 History hydroxyzine HCl 10 mg tablet 10 mg PO DAILY 05/13/23 05/23/24 History lisinopril 20 1 tab PO DAILY 05/13/23 05/23/24 History mg-hydrochlorothiazide 12.5 mg tablet omeprazole 20 mg capsule,delayed 20 mg PO DAILY 05/13/23 05/23/24 History release tamsulosin 0.4 mg capsule (Flomax) 0.4 mg PO DAILY 05/13/23 05/23/24 History venlafaxine 150 mg 150 mg PO DAILY 05/13/23 05/23/24 History capsule,extended release 24 hr (Effexor XR) tizanidine 4 mg tablet 4 mg PO TID PRN muscle spasticity 07/26/24 Rx #90 tabs tizanidine 4 mg tablet 4 mg PO TID PRN muscle spasticity 11/02/24 Rx #90 tabs oxycodone-acetaminophen 5 mg-325 See Rx Instructions .Route 01/26/25 Rx mg tablet (Percocet) .COMPLEX PRN pain #130 tabs pregabalin 100 mg capsule (Lyrica) See Rx Instructions .Route 01/26/25 Rx .COMPLEX #120 caps baclofen 10 mg tablet 10 mg PO TID PRN muscle spasm #90 02/27/25 Rx tabs oxycodone-acetaminophen 5 mg-325 See Rx Instructions .Route 02/27/25 Rx mg tablet (Percocet) .COMPLEX PRN pain #130 tabs pregabalin 100 mg capsule (Lyrica) See Rx Instructions .Route 02/27/25 Rx .COMPLEX #120 caps diclofenac sodium 75 mg 75 mg PO BID PRN pain #60 tabs 03/13/25 Rx tablet,delayed release oxycodone-acetaminophen 5 mg-325 1 tab PO .4-5 times daily PRN pain 03/27/25 Rx mg tablet (Percocet) #130 tabs pregabalin 100 mg capsule (Lyrica) 100 mg PO QID #120 caps 03/27/25 Rx oxycodone-acetaminophen 5 mg-325 See Rx Instructions .Route 05/04/25 Rx mg tablet (Percocet) .COMPLEX PRN pain #130 tabs oxycodone-acetaminophen 5 mg-325 See Rx Instructions .Route 05/24/25 Rx mg tablet (Percocet) .COMPLEX PRN pain #130 tabs baclofen 10 mg tablet 10 mg PO TID PRN muscle spasm #90 06/14/25 Rx tabs diclofenac sodium 75 mg 75 mg PO BID PRN pain #60 tabs 06/14/25 Rx tablet,delayed release oxycodone-acetaminophen 5 mg-325 See Rx Instructions .Route 06/28/25 Rx mg tablet (Percocet) .COMPLEX PRN pain #130 tabs Allergies Allergy/AdvReac Type Severity Reaction Status Date / Time corn Allergy Vomiting Verified 05/23/24 09:22 Penicillins Allergy Hives Verified 05/23/24 09:22 ibuprofen AdvReac Nausea Verified 05/23/24 09:22 prednisone AdvReac Palpitation Verified 05/23/24 09:22 s Exam Constitutional Documenting provider has reviewed patient's vital signs: yes Common normals: no apparent distress, oriented x3 and alert General appearance: cooperative HENMT Common normals: normocephalic, hearing grossly normal bilaterally and moist oral mucous membranes Head and scalp: normocephalic Eye Common normals: PERRL Pupil: PERRL Neck & C-Spine Common normals: full ROM General: normal visual inspection Chest Common normals: inspection of chest normal Respiratory Common normals: normal respiratory effort, no retractions and no use of accessory muscles Extremity Left upper extremity: shoulder joint Other: increased pain with crossbody adduction strength 5/5 in BUE positive posterior liftoff and empty can test Neuro Common normals: oriented x3 Sensorium/orientation: alert Psych Common normals: mental status grossly normal, thought process normal, cooperative, affect normal, speech normal and activity/motor behavior normal Speech: normal speech Thought process: normal thought process Results Additional Findings Additional findings: If on a controlled substance or opioids, I have checked an [place] report on this patient and there are no aberrancies noted in the prescribing history.??If on a controlled substance or opioid a drug screen was completed and reviewed within the last year, and if there has not been a drug screen completed we ordered one today to monitor higher risk, state monitored pain medication use. As part of providing excellent, safe, comprehensive care, the following was completed at our patient's visit: 1. A medication reconciliation and review to ensure accurate knowledge of current/active medications, including asking our patients to inform us about any [id number] medications or herbal remedies/nutritional supplements/alternative remedies. 2. A review to specifically ensure our patients have had annual screening for screening for depression, screening for tobacco use, and screening for unhealthy alcohol use. For concerning screenings had a discussion with the patient, provided patient education, and recommended follow-up with primary care provider when appropriate. If patient noted with a risk of falling, they received education on strength, gait, and balance training to prevent future risk of falling. Portions of this note may have been carried over from the previous visit and updated as appropriate. Please note this office utilizes paper charting in addition to the electronic medical record. A list of current medications, vitals, and PMH is available there as the clinical staff outside of myself do not have access to [facility] charting during the clinic day operations. As part of providing quality comprehensive care the current medications, vitals, and PMH were reviewed in the paper chart. Assessment and Plan Assessment and Plan (1) Osteoarthritis of left shoulder: (2) Left shoulder pain: Plan 49 year old male with chronic left shoulder pain unresponsive to heat, ice, tylenol, nsaids. pt interested in left shoulder MRI and referral to orthopedics for further evaluation. I recommend pt undergo a left shoulder injection for his OA, which he is declining at this time. will place a referral to Dr [facility] per patient request. defer left shoulder MRI as pt has not had recent PT or red flag findings on exam, pt can f/u with orthopedics. f/u prn for left shoulder pain
== END 2025-07-05 13:18 | disposition home or self-care (01) ==
LOC: PM 13:18
PROVIDERS: PCP Family Medicine; Visit Provider Nurse Practitioner
DX: M19.012 Primary osteoarthritis, left shoulder (principal); M25.512 Pain in left shoulder
CPT/HCPCS: G0463